=== PATIENT | female | born 1970 | race Caucasian/White ===

== ENCOUNTER 2022-04-14 13:04 | Emergency (ER) | payer MEDICARE, SELFPAY ==
--- NOTE | 2022-04-14 13:10 | ECG_ITS ---
Test Reason : cx pain Blood Pressure : / mmHG Vent. Rate : 104 BPM Atrial Rate : 104 BPM P-R Int : 130 ms QRS Dur : 068 ms QT Int : 328 ms P-R-T Axes : 075 021 020 degrees QTc Int : 431 ms Sinus tachycardia Otherwise normal ECG No previous ECGs available Referred By: Generic ED Physician Electronically Signed By:YUNIOR SHERMAN MD
[2022-04-14 13:17] VITALS: BP 133/91; PULSE 126; RESP 20; TEMP 36.8; O2SAT 98; BMI 28.3
--- NOTE | 2022-04-14 13:17 | ED_ITS ---
HPI - General Adult General Chief complaint: Chest Pain <Ousmane Herron - Last Filed: 04/14/22 13:19> Stated complaint: chest pain,high pulse rate/cardiac patient <Ousmane Herron - Last Filed: 04/14/22 13:19> Time Seen by Provider: 04/14/22 16:32 <Ousmane Herron - Last Filed: 04/14/22 13:19> Source: patient <SERVANDO Márquez - Last Filed: 04/14/22 17:21> Mode of arrival: ambulatory <SERVANDO Márquez - Last Filed: 04/14/22 17:21> Limitations: no limitations <SERVANDO Márquez - Last Filed: 04/14/22 17:21> History of Present Illness HPI narrative: 52 yo female with history of anxiety, CAD s/p stent x3, migraine headaches, intercostal neuralgia with chronic pain who presents to the ER for acute exacerbation of her intercostal neuralgia for the last 2 days. She reports she has severe 8/10 sternal and bilateral rib pains that are a constant stabbing pain. This is typical of her intercostal neuralgia flare ups. She reports seeing several specialists for this including neurology, psychiatry, and pain management who provided intercostal injections. She recently moved here from [place] and has no PCP or chronic pain management provider. She reports the pain started to flare up 2 days ago after shoveling snow. It radiates to her spine. It is <SERVANDO Márquez - Last Filed: 04/14/22 17:21> MD complaint: chest pain/back pain <SERVANDO Márquez - Last Filed: 04/14/22 17:21> Onset (ago): day(s) (2) <SERVANDO Márquez - Last Filed: 04/14/22 17:21> Location: chest and back <SERVANDO Márquez - Last Filed: 04/14/22 17:21> Radiation: back and neck <SERVANDO Márquez - Last Filed: 04/14/22 17:21> Severity: severe <SERVANDO Márquez - Last Filed: 04/14/22 17:21> Severity scale (1-10): 8 <SERVANDO Márquez Last Filed: 04/14/22 17:21> Quality: stabbing <SERVANDO Márquez Last Filed: 04/14/22 17:21> Pain Consistency: constant <SERVANDO Márquez Last Filed: 04/14/22 17:21> Relieving factors: none <SERVANDO Márquez Last Filed: 04/14/22 17:21> Exacerbating factors: movement <SERVANDO Márquez Last Filed: 04/14/22 17:21> Associated symptoms: denies other symptoms <SERVANDO Márquez Last Filed: 04/14/22 17:21> Treatments prior to arrival: none <SERVANDO Márquez Last Filed: 04/14/22 17:21> Related Data Home medications: Home Medications Medication Instructions Recorded Confirmed acetaminophen 500 mg tablet 500 mg PO Q6H PRN 04/14/22 (Tylenol Extra Strength) alprazolam 1 mg tablet 0.5 mg PO BID PRN 04/14/22 alprazolam 1 mg tablet 1 mg PO DAILY 04/14/22 atorvastatin 40 mg tablet 40 mg PO DAILY 04/14/22 clopidogrel 75 mg tablet 75 mg PO DAILY 04/14/22 esomeprazole magnesium 20 mg 20 mg PO BID 04/14/22 capsule,delayed release levetiracetam 500 mg tablet 500 mg PO BID 04/14/22 lidocaine HCl 4 % topical cream 1 appl topical QID PRN 04/14/22 (Aspercreme (lidocaine HCl)) paroxetine HCl 20 mg tablet 20 mg PO DAILY 04/14/22 prochlorperazine maleate 5 mg 5 mg PO ONCE PRN 04/14/22 tablet Previous Rx's Medication Instructions Recorded oxycodone 5 mg tablet 5 mg PO Q8H PRN pain #9 tabs 04/14/22 prednisone 20 mg tablet 40 mg PO DAILY #10 tabs 04/14/22 <Ousmane Herron - Last Filed: 04/14/22 13:19> Allergies/adverse reactions: Allergies Allergy/AdvReac Type Severity Reaction Status Date / Time No Known Allergies Allergy Verified 04/14/22 10:49 <Ousmane Herron - Last Filed: 04/14/22 13:19> Review of Systems Review of Systems: Yes all other systems are reviewed and are negative <SERVANDO Márquez - Last Filed: 04/14/22 17:21> [facility] Social History Social History: Social History Advance Directives: No <Ousmane Herron - Last Filed: 04/14/22 13:19> Physical Exam ED Vital Signs: Vital Signs - 24 hr 04/14/22 13:17 04/14/22 16:47 Temperature 98.2 F Pulse Rate 126 H 98 Respiratory Rate 20 20 Blood Pressure 133/91 H 132/89 Pulse Oximetry 98 99 Oxygen Delivery Method Room Air Room Air BMI result Body Mass Index 28.3 <Ousmane Herron - Last Filed: 04/14/22 13:19> Vital Signs - 24 hr 04/14/22 13:17 04/14/22 16:47 Temperature 98.2 F Pulse Rate 126 H 98 Respiratory Rate 20 20 Blood Pressure 133/91 H 132/89 Pulse Oximetry 98 99 Oxygen Delivery Method Room Air Room Air BMI result Body Mass Index 28.3 <SERVANDO Márquez - Last Filed: 04/14/22 17:21> Appearance: Alert. Oriented X3. No acute distress. Eyes: Pupils equal, round and reactive to light. ENT: Pharynx normal. Neck: Normal inspection. Neck supple. CVS: Normal heart rate and rhythm. HR 90s Pulses normal. Mild sternal tenderness and bilateral lower rib tenderness Respiratory: No respiratory distress. Breath sounds normal. Abdomen: Soft and nontender. +BS x4 Skin: Skin warm and dry. Normal skin color. Normal skin turgor. No rashes. Extremities: No lower extremity edema. Negative Homans sign Neuro: Oriented X 3. No motor deficit. No sensory deficit. Tremulous and anxious <SERVANDO Márquez - Last Filed: 04/14/22 17:21> Course Course Course Narrative: RME- 52 year old female presents for evaluation of chest pain that has been present for 2 days. Reports hx of cardiac stents x3. States history of intercostal neuralgia which she believes is the cause of her pain today. Was sent here from [place] urgent care. Vitals signs are stable in triage Plan for Labs, EKG <Ousmane Herron - Last Filed: 04/14/22 13:19> Reevaluation(s) Reevaluation #1: Labs unremarkable, troponin is negative. EKG without ischemic changes. Patient is comfort her pain is due to her ?intercostal neuralgia? She is tearful and anxious. We discussed the importance of outpatient management for chronic conditions and inability to chronically prescribe opiate medications in the emergency department. She expressed understanding. Will plan to refer the patient to chronic pain management, PCP here. Will provide a short course of oxycodone and prednisone. She will continue her previously prescribed Keppra. She follow-up with providers as an outpatient. <SERVANDO Márquez - Last Filed: 04/14/22 17:21> Medical Decision Making Medical Decision Making MDM Narrative: 52-year-old female with a history of CAD status post stent, migraines, anxiety, intercostal neuralgia who presents to the ER for evaluation of sternal pain and bilateral rib pain that started 2 days ago after shoveling. Seen at the urgent care clinic today and sent to the ER for cardiac workup. Her troponin is negative an EKG has no ischemic changes. She reports the pain is si milar to her intercostal neuralgia flare ups. She is confident that is what this pain is from. She reports relief only with oxycodone. She is tachycardic on arrival, most likely due to anxiety. She has no clinical signs DVT. Doubt PE at this time. Will empirically treat with short course of oxycodone and steroids for nerve pain. She will continue her Keppra and she is stable for discharge home with outpatient follow-up. Patient agrees with plan <SERVANDO Márquez - Last Filed: 04/14/22 17:21> Differential Diagnosis Differential Diagnoses: The differential diagnosis associated with the presentation includes <SERVANDO Márquez - Last Filed: 04/14/22 17:21> Intercostal neuralgia, anxiety, costochondritis, muscle spasm, less likely ACS or PE <SERVANDO Márquez - Last Filed: 04/14/22 17:21> Lab Data [facility] Lab Attestation statement: I reviewed the patient's lab results. <SERVANDO Márquez - Last Filed: 04/14/22 17:21> Result Diagrams: 04/14/22 14:10 04/14/22 14:10 <Ousmane Herron - Last Filed: 04/14/22 13:19> Labs: Lab Results 04/14/22 04/14/22 04/14/22 Range/Units 14:10 14:10 14:10 WBC 8.6 (4.8-10.8) X10*3/uL RBC 4.77 (4.20-5.50) X10*6/uL Hgb 14.7 (12.0-16.0) g/dl Hct 43.5 (37.0-47.0) % MCV 91.2 (80.0-98.0) fL MCH 30.8 (27.0-33.0) pg MCHC 33.8 (31.0-35.0) g/dl RDW 12.8 (11.0-16.0) % Plt Count 226 (160-400) X10*3/uL MPV 10.9 (9.4-12.3) fL Immature Gran % (Auto) 0.2 (0.0-0.4) % Neut % (Auto) 60.3 (45-73) % Lymph % (Auto) 31.9 (20-40) % [place] % (Auto) 6.3 (2-11) % Eos % (Auto) 0.6 (0-4) % Baso % (Auto) 0.7 (0-2) % Lymph # (Auto) 2.7 (1.2-4.9) X10*3/uL [place] # (Auto) 0.5 (0.1-1.2) X10*3/uL Eos # (Auto) 0.1 (0.0-0.4) X10*3/uL Baso # (Auto) 0.1 (0.0-0.2) X10*3/uL Abs Immat Gran (auto) 0.02 (0.00-0.03) X10*3/uL Absolute Neuts (auto) 5.2 (2.0-8.3) x10*3/uL Absolute Nucleated RBC 0.000 (0.0-0.012) X10*3/uL Nucleated RBC % (auto) 0.0 (0.0-0.2) /100WBC PT 12.2 (10.0-13.1) SEC INR 1.1 (0.9-1.1) APTT 29.3 (26.0-36.4) SEC Sodium 142 (135-145) mmol/L Potassium 3.7 (3.3-5.1) mmol/L Chloride 109 H (96-108) mmol/L Carbon Dioxide 19 L (22-29) mmol/L Anion Gap 18 (12-20) BUN 11 (9-16) mg/dL Creatinine 0.77 (0.5-1.4) mg/dL Estim Creat Clear Calc 89.7 Estimated GFR > 60 Random Glucose 94 (60-115) mg/dL Calcium 9.6 (8.4-10.2) mg/dL Magnesium 1.9 (1.6-2.6) mg/dL Total Bilirubin 1.2 H (0.0-1.0) mg/dL AST 21 (5-31) U/L ALT 17 (0-31) U/L Alkaline Phosphatase 79 (39-117) U/L Troponin I High Sens (<3.5-17.0) ng/L Total Protein 7.1 (6.5-8.0) g/dL Albumin 4.6 (3.5-5.0) g/dL 04/14/22 Range/Units 14:10 WBC (4.8-10.8) X10*3/uL RBC (4.20-5.50) X10*6/uL Hgb (12.0-16.0) g/dl Hct (37.0-47.0) % MCV (80.0-98.0) fL MCH (27.0-33.0) pg MCHC (31.0-35.0) g/dl RDW (11.0-16.0) % Plt Count (160-400) X10*3/uL MPV (9.4-12.3) fL Immature Gran % (Auto) (0.0-0.4) % Neut % (Auto) (45-73) % Lymph % (Auto) (20-40) % [place] % (Auto) (2-11) % Eos % (Auto) (0-4) % Baso % (Auto) (0-2) % Lymph # (Auto) (1.2-4.9) X10*3/uL [place] # (Auto) (0.1-1.2) X10*3/uL Eos # (Auto) (0.0-0.4) X10*3/uL Baso # (Auto) (0.0-0.2) X10*3/uL Abs Immat Gran (auto) (0.00-0.03) X10*3/uL Absolute Neuts (auto) (2.0-8.3) x10*3/uL Absolute Nucleated RBC (0.0-0.012) X10*3/uL Nucleated RBC % (auto) (0.0-0.2) /100WBC PT (10.0-13.1) SEC INR (0.9-1.1) APTT (26.0-36.4) SEC Sodium (135-145) mmol/L Potassium (3.3-5.1) mmol/L Chloride (96-108) mmol/L Carbon Dioxide (22-29) mmol/L Anion Gap (12-20) BUN (9-16) mg/dL Creatinine (0.5-1.4) mg/dL Estim Creat Clear Calc Estimated GFR Random Glucose (60-115) mg/dL Calcium (8.4-10.2) mg/dL Magnesium (1.6-2.6) mg/dL Total Bilirubin (0.0-1.0) mg/dL AST (5-31) U/L ALT (0-31) U/L Alkaline Phosphatase (39-117) U/L Troponin I High Sens < 3.5 (<3.5-17.0) ng/L Total Protein (6.5-8.0) g/dL Albumin (3.5-5.0) g/dL <Ousmane Herron - Last Filed: 04/14/22 13:19> Lab Results 04/14/22 04/14/22 04/14/22 Range/Units 14:10 14:10 14:10 WBC 8.6 (4.8-10.8) X10*3/uL RBC 4.77 (4.20-5.50) X10*6/uL Hgb 14.7 (12.0-16.0) g/dl Hct 43.5 (37.0-47.0) % MCV 91.2 (80.0-98.0) fL MCH 30.8 (27.0-33.0) pg MCHC 33.8 (31.0-35.0) g/dl RDW 12.8 (11.0-16.0) % Plt Count 226 (160-400) X10*3/uL MPV 10.9 (9.4-12.3) fL Immature Gran % (Auto) 0.2 (0.0-0.4) % Neut % (Auto) 60.3 (45-73) % Lymph % (Auto) 31.9 (20-40) % [place] % (Auto) 6.3 (2-11) % Eos % (Auto) 0.6 (0-4) % Baso % (Auto) 0.7 (0-2) % Lymph # (Auto) 2.7 (1.2-4.9) X10*3/uL [place] # (Auto) 0.5 (0.1-1.2) X10*3/uL Eos # (Auto) 0.1 (0.0-0.4) X10*3/uL Baso # (Auto) 0.1 (0.0-0.2) X10*3/uL Abs Immat Gran (auto) 0.02 (0.00-0.03) X10*3/uL Absolute Neuts (auto) 5.2 (2.0-8.3) x10*3/uL Absolute Nucleated RBC 0.000 (0.0-0.012) X10*3/uL Nucleated RBC % (auto) 0.0 (0.0-0.2) /100WBC PT 12.2 (10.0-13.1) SEC INR 1.1 (0.9-1.1) APTT 29.3 (26.0-36.4) SEC Sodium 142 (135-145) mmol/L Potassium 3.7 (3.3-5.1) mmol/L Chloride 109 H (96-108) mmol/L Carbon Dioxide 19 L (22-29) mmol/L Anion Gap 18 (12-20) BUN 11 (9-16) mg/dL Creatinine 0.77 (0.5-1.4) mg/dL Estim Creat Clear Calc 89.7 Estimated GFR > 60 Random Glucose 94 (60-115) mg/dL Calcium 9.6 (8.4-10.2) mg/dL Magnesium 1.9 (1.6-2.6) mg/dL Total Bilirubin 1.2 H (0.0-1.0) mg/dL AST 21 (5-31) U/L ALT 17 (0-31) U/L Alkaline Phosphatase 79 (39-117) U/L Troponin I High Sens (<3.5-17.0) ng/L Total Protein 7.1 (6.5-8.0) g/dL Albumin 4.6 (3.5-5.0) g/dL 04/14/22 Range/Units 14:10 WBC (4.8-10.8) X10*3/uL RBC (4.20-5.50) X10*6/uL Hgb (12.0-16.0) g/dl Hct (37.0-47.0) % MCV (80.0-98.0) fL MCH (27.0-33.0) pg MCHC (31.0-35.0) g/dl RDW (11.0-16.0) % Plt Count (160-400) X10*3/uL MPV (9.4-12.3) fL Immature Gran % (Auto) (0.0-0.4) % Neut % (Auto) (45-73) % Lymph % (Auto) (20-40) % [place] % (Auto) (2-11) % Eos % (Auto) (0-4) % Baso % (Auto) (0-2) % Lymph # (Auto) (1.2-4.9) X10*3/uL [place] # (Auto) (0.1-1.2) X10*3/uL Eos # (Auto) (0.0-0.4) X10*3/uL Baso # (Auto) (0.0-0.2) X10*3/uL Abs Immat Gran (auto) (0.00-0.03) X10*3/uL Absolute Neuts (auto) (2.0-8.3) x10*3/uL Absolute Nucleated RBC (0.0-0.012) X10*3/uL Nucleated RBC % (auto) (0.0-0.2) /100WBC PT (10.0-13.1) SEC INR (0.9-1.1) APTT (26.0-36.4) SEC Sodium (135-145) mmol/L Potassium (3.3-5.1) mmol/L Chloride (96-108) mmol/L Carbon Dioxide (22-29) mmol/L Anion Gap (12-20) BUN (9-16) mg/dL Creatinine (0.5-1.4) mg/dL Estim Creat Clear Calc Estimated GFR Random Glucose (60-115) mg/dL Calcium (8.4-10.2) mg/dL Magnesium (1.6-2.6) mg/dL Total Bilirubin (0.0-1.0) mg/dL AST (5-31) U/L ALT (0-31) U/L Alkaline Phosphatase (39-117) U/L Troponin I High Sens < 3.5 (<3.5-17.0) ng/L Total Protein (6.5-8.0) g/dL Albumin (3.5-5.0) g/dL <SERVANDO Márquez Last Filed: 04/14/22 17:21> Independent Interpretation I performed an independent interpretation of an: EKG <SERVANDO Márquez Last Filed: 04/14/22 17:21> Interpretation: EKG today with sinus tachycardia, ventricular rate 104 beats per minute, normal CO interval, normal QTC, no ST segment elevations or depressions. <SERVANDO Márquez Last Filed: 04/14/22 17:21> External Record Review External record reviewed: Outpatient record <SERVANDO Márquez Last Filed: 04/14/22 17:21> Tests considered The following testing was considered but not selected: D-dimer and CTA considered however not indicated at this time as other etiology of her chest pain is more likely. <SERVANDO Márquez Last Filed: 04/14/22 17:21> Prescription Management I considered prescription management with: Pain Medication <SERVANDO Márquez Last Filed: 04/14/22 17:21> Chronic Conditions Patient?s care impacted by: Other (Anxiety, coronary artery disease) <SERVANDO Márquez Abimael ed: 04/14/22 17:21> Scores Heart Score History: -0- slightly suspicious <SERVANDO Márquez - Last Filed: 04/14/22 17:21> ECG: -0- normal <SERVANDO Márquez - Last Filed: 04/14/22 17:21> Age: -1- >45 - <65 <SERVANDO Márquez - Last Filed: 04/14/22 17:21> Risk factory: -1- 1 or 2 risk factors <SERVANDO Márquez - Last Filed: 04/14/22 17:21> Troponin: -0- < or = normal limit <SERVANDO Márquez - Last Filed: 04/14/22 17:21> Score: 2 <SERVANDO Márquez - Last Filed: 04/14/22 17:21> Risk: 1.7% <SERVANDO Márquez - Last Filed: 04/14/22 17:21> Wells PE Heart rate > 100 p/min: 1.5 <SERVANDO Márquez - Last Filed: 04/14/22 17:21> Score: 1.5 <SERVANDO Márquez - Last Filed: 04/14/22 17:21> 2-tier Risk: unlikely risk (5%) <SERVANDO Márquez - Last Filed: 04/14/22 17:21> 3-tier Risk: low risk (3.4%) <SERVANDO Márquez - Last Filed: 04/14/22 17:21> Critical Care Time Critical Care Time Critical Care Time: No <SERVANDO Márquez - Last Filed: 04/14/22 17:21> Discharge Plan Discharge Clinical Impression: Atypical chest pain <Ousmane Herron - Last Filed: 04/14/22 13:19> Patient Disposition: Home, Self-Care <Ousmane Herron - Last Filed: 04/14/22 13:19> Instructions: Noncardiac Chest Pain (ED) <Ousmane Herron - Last Filed: 04/14/22 13:19> Additional Instructions: Your lab workup today was unremarkable. Your EKG did not show any evidence of strain on your heart. Recommend following up with Pain Management, as well as a primary care doctor as soon as possible. Take the prescribed medications as directed. If you develop new or worsening symptoms call 911 or come back to the ER for further evaluation. <Ousmane Herron - Last Filed: 04/14/22 13:19> Prescriptions: New oxycodone 5 mg tablet 5 mg PO Q8H PRN (Reason: pain) Qty: 9 0RF Rx Instructions: Partial Fill upon patient request. prednisone 20 mg tablet 40 mg PO DAILY Qty: 10 0RF No Action alprazolam 1 mg tablet 0.5 mg PO BID PRN atorvastatin 40 mg tablet 40 mg PO DAILY prochlorperazine maleate 5 mg tablet 5 mg PO ONCE PRN paroxetine HCl 20 mg tablet 20 mg PO DAILY clopidogrel 75 mg tablet 75 mg PO DAILY alprazolam 1 mg tablet 1 mg PO DAILY levetiracetam 500 mg tablet 500 mg PO BID esomeprazole magnesium 20 mg capsule,delayed release(DR/EC) 20 mg PO BID lidocaine HCl [Aspercreme (lidocaine HCl)] 4 % cream 1 appl topical QID PRN acetaminophen [Tylenol Extra Strength] 500 mg tablet 500 mg PO Q6H PRN <Ousmane Herron - Last Filed: 04/14/22 13:19>
[2022-04-14 14:16] LABS: MANUAL DIFF FLAG NO
[2022-04-14 14:20] LABS: Basophils Absolute Auto 0.1 X10*3/uL (0.0-0.2); Basophils Percent Auto 0.7 % (0-2); Eosinophils Absolute Auto 0.1 X10*3/uL (0.0-0.4); Eosinophils Percent Auto 0.6 % (0-4); Hematocrit 43.5 % (37.0-47.0); Hemoglobin 14.7 g/dl (12.0-16.0); Imm Gran Abs Auto 0.02 X10*3/uL (0.00-0.03); Imm Gran Pct Auto 0.2 % (0.0-0.4); Lymphocytes Absolute Auto 2.7 X10*3/uL (1.2-4.9); Lymphocytes Percent Auto 31.9 % (20-40); Mean Corpuscular HGB Conc 33.8 g/dl (31.0-35.0); Mean Corpuscular Hemoglobin 30.8 pg (27.0-33.0); Mean Corpuscular Volume 91.2 fL (80.0-98.0); Mean Platelet Volume 10.9 fL (9.4-12.3); Monocytes Absolute Auto 0.5 X10*3/uL (0.1-1.2); Monocytes Percent Auto 6.3 % (2-11); Neutrophils Absolute Auto 5.2 x10*3/uL (2.0-8.3); Neutrophils Percent Auto 60.3 % (45-73); Platelet Count 226 X10*3/uL (160-400); Red Blood Count 4.77 X10*6/uL (4.20-5.50); Red Cell Distribution Width 12.8 % (11.0-16.0); White Blood Count 8.6 X10*3/uL (4.8-10.8)
[2022-04-14 14:26] LABS: INTERNATIONAL NORM RATIO 1.1 (0.9-1.1); Prothrombin Time 12.2 SEC (10.0-13.1)
[2022-04-14 14:28] LABS: Partial Thromboplastin Time 29.3 SEC (26.0-36.4)
[2022-04-14 14:31] LABS: Alanine Aminotransferase 17 U/L (0-31); Albumin Level 4.6 g/dL (3.5-5.0); Alkaline Phosphatase 79 U/L (39-117); Anion Gap 18 (12-20); Aspartate Amino Transferase 21 U/L (5-31); Bilirubin Total 1.2 mg/dL (0.0-1.0); Blood Urea Nitrogen 11 mg/dL (9-16); Calcium 9.6 mg/dL (8.4-10.2); Carbon Dioxide 19 mmol/L (22-29); Chloride 109 mmol/L (96-108); Creatinine Clr Calc Pharmacy 89.7; Estimated Glomerular Filt Rate > 60; Glucose Random 94 mg/dL (60-115); Magnesium 1.9 mg/dL (1.6-2.6); Potassium 3.7 mmol/L (3.3-5.1); Sodium 142 mmol/L (135-145); Total Protein 7.1 g/dL (6.5-8.0)
[2022-04-14 14:38] LABS: Troponin-I High Sensitivity < 3.5 ng/L (<3.5-17.0)
[2022-04-14 16:47] VITALS: BP 132/89; PULSE 98; RESP 20; O2SAT 99
[2022-04-14] MEDS: oxyCODONE HCl Immed Release 5 MG TABLET PO (17:25)
[2022-04-14] MEDS: Ketorolac Tromethamine 30 MG/ML VIAL IM (17:25)
== END 2022-04-14 17:33 | disposition home or self-care (01) ==
PROVIDERS: Physician Assistant; Emergency Provider Emergency Medicine
DX: R07.89 Other chest pain (principal); R00.0 Tachycardia, unspecified; I25.10 Atherosclerotic heart disease of native coronary artery without angina pectoris; Z79.899 Other long term (current) drug therapy
CPT/HCPCS: 36415; 80053; 83735; 84484; 85025; 85610; 85730; 93005; 96372; 99284; J1885

== ENCOUNTER 2022-04-20 13:02 | Emergency (ER) | payer MEDICARE, SELFPAY ==
[2022-04-20 13:06] VITALS: BP 148/87; PULSE 104; RESP 18; TEMP 35.9; O2SAT 98; BMI 28.3
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
--- NOTE | 2022-04-20 13:12 | ECG_ITS ---
Test Reason : CHEST PAIN Blood Pressure : / mmHG Vent. Rate : 096 BPM Atrial Rate : 096 BPM P-R Int : 116 ms QRS Dur : 066 ms QT Int : 348 ms P-R-T Axes : 049 013 042 degrees QTc Int : 439 ms Normal sinus rhythm Nonspecific ST and T wave abnormality Borderline ECG When compared with ECG of 14-APR-2022 13:57, No significant changes seen Referred By: Melissa Ambrosio Electronically Signed By:FLASH CHANDLER
[2022-04-20 14:02] LABS: MANUAL DIFF FLAG NO
[2022-04-20 14:09] LABS: Basophils Absolute Auto 0.1 X10*3/uL (0.0-0.2); Basophils Percent Auto 0.8 % (0-2); Eosinophils Absolute Auto 0.1 X10*3/uL (0.0-0.4); Eosinophils Percent Auto 0.9 % (0-4); Hematocrit 41.3 % (37.0-47.0); Hemoglobin 14.1 g/dl (12.0-16.0); Imm Gran Abs Auto 0.01 X10*3/uL (0.00-0.03); Imm Gran Pct Auto 0.2 % (0.0-0.4); Lymphocytes Absolute Auto 2.5 X10*3/uL (1.2-4.9); Lymphocytes Percent Auto 38.3 % (20-40); Mean Corpuscular HGB Conc 34.1 g/dl (31.0-35.0); Mean Corpuscular Hemoglobin 30.9 pg (27.0-33.0); Mean Corpuscular Volume 90.4 fL (80.0-98.0); Mean Platelet Volume 10.5 fL (9.4-12.3); Monocytes Absolute Auto 0.5 X10*3/uL (0.1-1.2); Neutrophils Absolute Auto 3.5 x10*3/uL (2.0-8.3); Neutrophils Percent Auto 52.8 % (45-73); Platelet Count 246 X10*3/uL (160-400); Red Blood Count 4.57 X10*6/uL (4.20-5.50); Red Cell Distribution Width 12.7 % (11.0-16.0); White Blood Count 6.6 X10*3/uL (4.8-10.8)
[2022-04-20 14:19] LABS: Anion Gap 15 (12-20); Blood Urea Nitrogen 10 mg/dL (9-16); Calcium 9.6 mg/dL (8.4-10.2); Carbon Dioxide 22 mmol/L (22-29); Chloride 110 mmol/L (96-108); Creatinine Clr Calc Pharmacy 85.3; Estimated Glomerular Filt Rate > 60; Glucose Random 93 mg/dL (60-115); Sodium 143 mmol/L (135-145)
[2022-04-20 14:28] LABS: Troponin-I High Sensitivity < 3.5 ng/L (<3.5-17.0)
== END 2022-04-20 17:00 | disposition home or self-care (01) ==
PROVIDERS: Physician Assistant; Emergency Provider Student in an Organized Health Care Education/Training Program
DX: R07.89 Other chest pain (principal)
CPT/HCPCS: 36415; 80048; 84484; 85025; 93005; 99283

== ENCOUNTER 2022-04-29 12:34 | Emergency (ER) | payer MEDICARE, SELFPAY ==
--- NOTE | ~2022-04-29 | XR_ITS ---
EXAMINATION: XR CHEST CLINICAL INFORMATION: Chest pain COMPARISON: None available. TECHNIQUE: 2 views of the chest were obtained. FINDINGS: No significant abnormality is noted involving the heart, lungs, mediastinum, bony thorax or soft tissues. Coronary artery stent present. XR/XR chest 2V IMPRESSION: No acute disease.
--- NOTE | 2022-04-29 12:39 | ECG_ITS ---
Test Reason : chest pain Blood Pressure : / mmHG Vent. Rate : 104 BPM Atrial Rate : 104 BPM P-R Int : 128 ms QRS Dur : 068 ms QT Int : 318 ms P-R-T Axes : 069 021 066 degrees QTc Int : 418 ms Sinus tachycardia Otherwise normal ECG When compared with ECG of 20-APR-2022 13:48, No significant change was found Referred By: Monica Manrique Electronically Signed By:Sunil Cobb
[2022-04-29 13:28] VITALS: BP 135/84; PULSE 111; RESP 16; TEMP 36.3; O2SAT 97; BMI 29.9
--- NOTE | 2022-04-29 13:28 | ED_ITS ---
HPI - General Adult General Chief complaint: General Medical <SERVANDO Barragan - Last Filed: 04/29/22 13:29> Stated complaint: Chest pain around rib cage, body pain <SERVANDO Barragan - Last Filed: 04/29/22 13:29> Time Seen by Provider: 04/29/22 16:24 <SERVANDO Barragan - Last Filed: 04/29/22 13:29> Source: patient and RN notes reviewed <Ousmane Herron - Last Filed: 04/29/22 19 :02> Mode of arrival: ambulatory <Ousmane Herron - Last Filed: 04/29/22 19:02> Limitations: no limitations <Ousmane Herron - Last Filed: 04/29/22 19:02> History of Present Illness HPI narrative: 52-year-old female with past medical history significant for coronary artery disease, ?intercostal neuralgia, chronic pain, migraine headaches, anxiety presents for evaluation of chest pain. Patient believes that she has a ?flare-up of my intercostal neuralgia for the last 3 days after she was shoveling She reports that she has a burning pain in the middle of her sternum that radiates around both sides of her ribs and into her back. She states the pain today radiates down her leg and is ?burning. ? She reports the pain down her legs is new for her. Patient states her pain is 10/10 and ?keeps me in bed. The patient reports that the only thing that helps her pain is narcotics specifically oxycodone. She reports that Tylenol does not work, she has tried Toradol in the past does not work, muscle relaxers and lidocaine also do not help her. She also reports that she has been taking Tylenol for the last few days without any improvement. Of note, this is the patient's 3rd visit in the last 2 weeks for the same complaint. She had a lengthy discussion with previous provider that she will not be prescribed opioids for chronic pain management from the ER The patient was offered alternatives including Suboxone at her last visit. <Ousmane Herron - Last Filed: 04/29/22 19:02> Related Data Home medications: Home Medications Medication Instructions Recorded Confirmed acetaminophen 500 mg tablet 500 mg PO Q6H PRN 04/14/22 (Tylenol Extra Strength) alprazolam 1 mg tablet 0.5 mg PO BID PRN 04/14/22 alprazolam 1 mg tablet 1 mg PO DAILY 04/14/22 atorvastatin 40 mg tablet 40 mg PO DAILY 04/14/22 clopidogrel 75 mg tablet 75 mg PO DAILY 04/14/22 esomeprazole magnesium 20 mg 20 mg PO BID 04/14/22 capsule,delayed release levetiracetam 500 mg tablet 500 mg PO BID 04/14/22 lidocaine HCl 4 % topical cream 1 appl topical QID PRN 04/14/22 (Aspercreme (lidocaine HCl)) paroxetine HCl 20 mg tablet 20 mg PO DAILY 04/14/22 prochlorperazine maleate 5 mg 5 mg PO ONCE PRN 04/14/22 tablet Previous Rx's Medication Instructions Recorded oxycodone 5 mg tablet 5 mg PO Q8H PRN pain #9 tabs 04/14/22 prednisone 20 mg tablet 40 mg PO DAILY #10 tabs 04/14/22 <SERVANDO Barragan - Last Filed: 04/29/22 13:29> Allergies/adverse reactions: Allergies Allergy/AdvReac Type Severity Reaction Status Date / Time No Known Allergies Allergy Verified 04/19/22 13:52 <SERVANDO Barragan - Last Filed: 04/29/22 13:29> Review of Systems Constitutional: Constitutional: Reports as per HPI, Denies chills, Denies fatigue, Denies fever(s) and Denies headache(s) <Ousmane Herron - Last Filed: 04/29/22 19:02> ENT: Denies headache(s) <Ousmane Herron - Last Filed: 04/29/22 19:02> Cardiovascular: Cardiovascular: Reports chest pain and Denies dyspnea <Ousmane Herron - Last Filed: 04/29/22 19:02> Respiratory: Respiratory: Denies cough and Denies dyspnea <Ousmane Herron - Last Filed: 04/29/22 19:02> Gastrointestinal: Gastrointestinal: Denies abdominal pain, Denies constipation and Denies vomiting <Ousmane Herron - Last Filed: 04/29/22 19:02> Genitourinary: Genitourinary: Denies dysuria <Ousmane Herron - Last Filed: 04/29/22 19:02> Musculoskeletal: Musculoskeletal: Reports back pain <Ousmane Herron - Last Filed: 04/29/22 19:02> Neurologic: Denies headache(s) and Denies focal weakness <Ousmane Herron - Last Filed: 04/29/22 19:02> Endocrine: Endocrine: Denies fatigue <Ousmane Herron - Last Filed: 04/29/22 19:02> PMFSH Social History Social History: Social History Alcohol intake: never Smoked in Last 30 Days: No Use of substances other than those prescribed or required for medical reasons: No Advance Directives: No Advance Directives Information Provided: Yes Patient : No <SERVANDO Barragan - Last Filed: 04/29/22 13:29> Physical Exam ED Vital Signs: Vital Signs - 24 hr 04/29/22 13:28 04/29/22 16:22 04/29/22 17:57 Temperature 97.4 F Pulse Rate 111 H 80 88 Respiratory Rate 16 19 16 Blood Pressure 135/84 112/65 105/74 Pulse Oximetry 97 100 98 Oxygen Delivery Method Room Air Room Air Room Air BMI result Body Mass Index 29.9 <SERVANDO Barragan - Last Filed: 04/29/22 13:29> Vital Signs - 24 hr 04/29/22 13:28 04/29/22 16:22 04/29/22 17:57 Temperature 97.4 F Pulse Rate 111 H 80 88 Respiratory Rate 16 19 16 Blood Pressure 135/84 112/65 105/74 Pulse Oximetry 97 100 98 Oxygen Delivery Method Room Air Room Air Room Air BMI result Body Mass Index 29.9 <Ousmane Herron - Last Filed: 04/29/22 19:02> Const General: healthy appearing, comfortable, no acute distress, alert and awake <Ousmane Herron - Last Filed: 04/29/22 19:02> Nutritional Appearance: well nourished <Ousmane Herron - Last Filed: 04/29/22 19:02> Orientation/consciousness: patient oriented x3 <Ousmane Herron - Last Filed: 04/29/22 19:02> HENMT Head: Yes normocephalic and Yes atraumatic <Ousmane Herron - Last Filed: 04/29/22 19:02> Throat: Yes posterior oropharynx normal < Last Filed: 04/29/22 19:02> Eyes Eyelids: Yes eyelids normal < - Last Filed: 04/29/22 19:02> Conjunctivae: conjunctivae normal < Last Filed: 04/29/22 19:02> Sclerae: sclerae normal < - Last Filed: 04/29/22 19:02> Corneas: corneas normal < Last Filed: 04/29/22 19:02> Pupils: Equal, round and reactive pupils present < - Last Filed: 04/29/22 19:02> EOM: EOMs intact bilaterally < Last Filed: 04/29/22 19:02> Neck Neck: Yes full ROM < Last Filed: 04/29/22 19:02> Chest Chest palpation & inspection: normal inspection of the chest < Last Filed: 04/29/22 19:02> Resp Effort & Inspection: normal respiratory effort, able to speak in complete sentences, no audible wheezes and not labored < Last Filed: 04/29/22 19:02> Auscultation: clear to auscultation bilaterally < Last Filed: 04/29/22 19:02> Cardio Rate: regular rate < Last Filed: 04/29/22 19:02> Rhythm: regular rhythm < Last Filed: 04/29/22 19:02> GI Inspection: No distended < Last Filed: 04/29/22 19:02> Palpation (GI): Soft to palpation, not firm, nontender, no guarding and not rigid < Last Filed: 04/29/22 19:02> Auscultation: normoactive bowel sounds < Last Filed: 04/29/22 19:02> Back/Spine/Pelvis Other: No spinal tenderness to the thoracic and lumbar spine. Negative straight leg raise bilaterally. <Ousmane Herron - Last Filed: 04/29/22 19:02> Skin General skin exam: no rashes or lesions noted and elasticity normal <Ousmane Herron - Last Filed: 04/29/22 19:02> Neuro General: patient oriented x3 <Ousmane Herron - Last Filed: 04/29/22 19:02> Cranial nerves: Yes CN's II-XII intact bilaterally, Yes Equal, round and reactive pupils present and Yes Bilaterally intact EOM present <Ousmane Herron - Last Filed: 04/29/22 19:02> Cognition (Neuro): normal cognition <Ousmane Herron - Last Filed: 04/29/22 19:02> Extrem Other: Moving all extremities well without any obvious deformities <Ousmane abramsy - Last Filed: 04/29/22 19:02> Course Course Course Narrative: RME performed by Monica Manrique PA-C. Patient is a 52 year old female presenting to the emergency department with central, burning, chest pain. Patient states that the pain radiates into her back and down into her legs. Patient states that she was shoveling and that may have irritated her intercostal neuralgia. Labs, EKG, and CXR ordered. Patient placed back in the waiting room pending room availability and results. <SERVANDO Barragan - Last Filed: 04/29/22 13:29> Medical Decision Making Medical Decision Making MDM Narrative: Given the patient's history of coronary artery disease, I feel that she warrants workup for her chest pain to evaluate for potential ACS so I feel this is less likely. The patient appears quite comfortable. Her EKG and chest x-ray are unremarkable with the exception of a mild tachycardia. There is no ischemic changes on the EKG. Lab work is pending at this time. I again discussed the patient I am happy to provide her alternatives for her pain but would not be prescribing her narcotic pain medication to treat her chronic pain in the absence of acute pathology. Patient was offered Toradol, Tylenol a muscle relaxers and she declined all them. <Uosmane LouisaBlaise - Last Filed: 04/29/22 19:02> Differential Diagnosis Chronic pain Drug-seeking behavior Opiate dependence Intercostal neuralgia ACS <Ousmane Herron - Last Filed: 04/29/22 19:02> Lab Data Result Diagrams: 04/29/22 17:47 04/29/22 17:47 <SERVANDO Barragan - Last Filed: 04/29/22 13:29> Labs: Lab Results 04/29/22 04/29/22 04/29/22 Range/Units 13:55 17:47 17:47 WBC 6.0 (4.8-10.8) X10*3/uL RBC 4.46 (4.20-5.50) X10*6/uL Hgb 14.1 (12.0-16.0) g/dl Hct 40.4 (37.0-47.0) % MCV 90.6 (80.0-98.0) fL MCH 31.6 (27.0-33.0) pg MCHC 34.9 (31.0-35.0) g/dl RDW 12.8 (11.0-16.0) % Plt Count 254 (160-400) X10*3/uL MPV 10.2 (9.4-12.3) fL Immature Gran % (Auto) 0.2 (0.0-0.4) % Neut % (Auto) 50.3 (45-73) % Lymph % (Auto) 41.0 H (20-40) % Ransom % (Auto) 7.3 (2-11) % Eos % (Auto) 0.5 (0-4) % Baso % (Auto) 0.7 (0-2) % Lymph # (Auto) 2.5 (1.2-4.9) X10*3/uL Ransom # (Auto) 0.4 (0.1-1.2) X10*3/uL Eos # (Auto) 0.0 (0.0-0.4) X10*3/uL Baso # (Auto) 0.0 (0.0-0.2) X10*3/uL Abs Immat Gran (auto) 0.01 (0.00-0.03) X10*3/uL Absolute Neuts (auto) 3.0 (2.0-8.3) x10*3/uL Absolute Nucleated RBC 0.000 (0.0-0.012) X10*3/uL Nucleated RBC % (auto) 0.0 (0.0-0.2) /100WBC Sodium 143 (135-145) mmol/L Potassium 3.3 (3.3-5.1) mmol/L Chloride 111 H (96-108) mmol/L Carbon Dioxide 19 L (22-29) mmol/L Anion Gap 16 (12-20) BUN 10 (9-16) mg/dL Creatinine 0.78 (0.5-1.4) mg/dL Estim Creat Clear Calc 91.0 Estimated GFR > 60 Random Glucose 93 (60-115) mg/dL Calcium 9.5 (8.4-10.2) mg/dL Magnesium 1.9 (1.6-2.6) mg/dL Total Bilirubin 0.8 (0.0-1.0) mg/dL AST 20 (5-31) U/L ALT 16 (0-31) U/L Alkaline Phosphatase 71 (39-117) U/L Troponin I High Sens (<3.5-17.0) ng/L B-Natriuretic Peptide (<100) pg/mL Total Protein 6.7 (6.5-8.0) g/dL Albumin 4.4 (3.5-5.0) g/dL COVID-19 (BRIANA) Negative (Negative) COVID-19 Clin Com See Note 04/29/22 04/29/22 Range/Units 17:47 17:47 WBC (4.8-10.8) X10*3/uL RBC (4.20-5.50) X10*6/uL Hgb (12.0-16.0) g/dl Hct (37.0-47.0) % MCV (80.0-98.0) fL MCH (27.0-33.0) pg MCHC (31.0-35.0) g/dl RDW (11.0-16.0) % Plt Count (160-400) X10*3/uL MPV (9.4-12.3) fL Immature Gran % (Auto) (0.0-0.4) % Neut % (Auto) (45-73) % Lymph % (Auto) (20-40) % Ransom % (Auto) (2-11) % Eos % (Auto) (0-4) % Baso % (Auto) (0-2) % Lymph # (Auto) (1.2-4.9) X10*3/uL Ransom # (Auto) (0.1-1.2) X10*3/uL Eos # (Auto) (0.0-0.4) X10*3/uL Baso # (Auto) (0.0-0.2) X10*3/uL Abs Immat Gran (auto) (0.00-0.03) X10*3/uL Absolute Neuts (auto) (2.0-8.3) x10*3/uL Absolute Nucleated RBC (0.0-0.012) X10*3/uL Nucleated RBC % (auto) (0.0-0.2) /100WBC Sodium (135-145) mmol/L Potassium (3.3-5.1) mmol/L Chloride (96-108) mmol/L Carbon Dioxide (22-29) mmol/L Anion Gap (12-20) BUN (9-16) mg/dL Creatinine (0.5-1.4) mg/dL Estim Creat Clear Calc Estimated GFR Random Glucose (60-115) mg/dL Calcium (8.4-10.2) mg/dL Magnesium (1.6-2.6) mg/dL Total Bilirubin (0.0-1.0) mg/dL AST (5-31) U/L ALT (0-31) U/L Alkaline Phosphatase (39-117) U/L Troponin I High Sens 6.2 D (<3.5-17.0) ng/L B-Natriuretic Peptide 13 (<100) pg/mL Total Protein (6.5-8.0) g/dL Albumin (3.5-5.0) g/dL COVID-19 (BRIANA) (Negative) COVID-19 Clin Com <SERVANDO Barragan - Last Filed: 04/29/22 13:29> Lab Results 04/29/22 04/29/22 04/29/22 Range/Units 13:55 17:47 17:47 WBC 6.0 (4.8-10.8) X10*3/uL RBC 4.46 (4.20-5.50) X10*6/uL Hgb 14.1 (12.0-16.0) g/dl Hct 40.4 (37.0-47.0) % MCV 90.6 (80.0-98.0) fL MCH 31.6 (27.0-33.0) pg MCHC 34.9 (31.0-35.0) g/dl RDW 12.8 (11.0-16.0) % Plt Count 254 (160-400) X10*3/uL MPV 10.2 (9.4-12.3) fL Immature Gran % (Auto) 0.2 (0.0-0.4) % Neut % (Auto) 50.3 (45-73) % Lymph % (Auto) 41.0 H (20-40) % Ransom % (Auto) 7.3 (2-11) % Eos % (Auto) 0.5 (0-4) % Baso % (Auto) 0.7 (0-2) % Lymph # (Auto) 2.5 (1.2-4.9) X10*3/uL Ransom # (Auto) 0.4 (0.1-1.2) X10*3/uL Eos # (Auto) 0.0 (0.0-0.4) X10*3/uL Baso # (Auto) 0.0 (0.0-0.2) X10*3/uL Abs Immat Gran (auto) 0.01 (0.00-0.03) X10*3/uL Absolute Neuts (auto) 3.0 (2.0-8.3) x10*3/uL Absolute Nucleated RBC 0.000 (0.0-0.012) X10*3/uL Nucleated RBC % (auto) 0.0 (0.0-0.2) /100WBC Sodium 143 (135-145) mmol/L Potassium 3.3 (3.3-5.1) mmol/L Chloride 111 H (96-108) mmol/L Carbon Dioxide 19 L (22-29) mmol/L Anion Gap 16 (12-20) BUN 10 (9-16) mg/dL Creatinine 0.78 (0.5-1.4) mg/dL Estim Creat Clear Calc 91.0 Estimated GFR > 60 Random Glucose 93 (60-115) mg/dL Calcium 9.5 (8.4-10.2) mg/dL Magnesium 1.9 (1.6-2.6) mg/dL Total Bilirubin 0.8 (0.0-1.0) mg/dL AST 20 (5-31) U/L ALT 16 (0-31) U/L Alkaline Phosphatase 71 (39-117) U/L Troponin I High Sens (<3.5-17.0) ng/L B-Natriuretic Peptide (<100) pg/mL Total Protein 6.7 (6.5-8.0) g/dL Albumin 4.4 (3.5-5.0) g/dL COVID-19 (BRIANA) Negative (Negative) COVID-19 Clin Com See Note 04/29/22 04/29/22 Range/Units 17:47 17:47 WBC (4.8-10.8) X10*3/uL RBC (4.20-5.50) X10*6/uL Hgb (12.0-16.0) g/dl Hct (37.0-47.0) % MCV (80.0-98.0) fL MCH (27.0-33.0) pg MCHC (31.0-35.0) g/dl RDW (11.0-16.0) % Plt Count (160-400) X10*3/uL MPV (9.4-12.3) fL Immature Gran % (Auto) (0.0-0.4) % Neut % (Auto) (45-73) % Lymph % (Auto) (20-40) % Ransom % (Auto) (2-11) % Eos % (Auto) (0-4) % Baso % (Auto) (0-2) % Lymph # (Auto) (1.2-4.9) X10*3/uL Ransom # (Auto) (0.1-1.2) X10*3/uL Eos # (Auto) (0.0-0.4) X10*3/uL Baso # (Auto) (0.0-0.2) X10*3/uL Abs Immat Gran (auto) (0.00-0.03) X10*3/uL Absolute Neuts (auto) (2.0-8.3) x10*3/uL Absolute Nucleated RBC (0.0-0.012) X10*3/uL Nucleated RBC % (auto) (0.0-0.2) /100WBC Sodium (135-145) mmol/L Potassium (3.3-5.1) mmol/L Chloride (96-108) mmol/L Carbon Dioxide (22-29) mmol/L Anion Gap (12-20) BUN (9-16) mg/dL Creatinine (0.5-1.4) mg/dL Estim Creat Clear Calc Estimated GFR Random Glucose (60-115) mg/dL Calcium (8.4-10.2) mg/dL Magnesium (1.6-2.6) mg/dL Total Bilirubin (0.0-1.0) mg/dL AST (5-31) U/L ALT (0-31) U/L Alkaline Phosphatase (39-117) U/L Troponin I High Sens 6.2 D (<3.5-17.0) ng/L B-Natriuretic Peptide 13 (<100) pg/mL Total Protein (6.5-8.0) g/dL Albumin (3.5-5.0) g/dL COVID-19 (BRIANA) (Negative) COVID-19 Clin Com <Ousmane Herron - Last Filed: 04/29/22 19:02> Independent Interpretation I performed an independent interpretation of an: EKG (Years sinus tachycardia rate of 104. No ST segment elevations or depressions. Nonischemic EKG) <Ousamne Herron - Last Filed: 04/29/22 19:02> Radiology Impression Discussion of test interpretation with radiology: I have reviewed the radiologist's reading. (No acute pathology) <Ousmane Herron - Last Filed: 04/29/22 19:02> Discharge Plan Discharge Clinical Impression: Chronic chest pain <SERVANDO Barragan - Last Filed: 04/29/22 13:29> Patient Disposition: Home, Self-Care <SERVANDO Barragan - Last Filed: 04/29/22 13:29> Instructions: Chest Pain (ED) <SERVANDO Barragan - Last Filed: 04/29/22 13:29> Additional Instructions: Your workup in the emergency per was reassuring. But very depressed as was it does not appear that your changes related to coronary arteries. Continue using Tylenol, [id number] topical analgesia is for your discomfort <SERVANDO Barragan - Last Filed: 04/29/22 13:29> Prescriptions: No Action oxycodone 5 mg tablet 5 mg PO Q8H PRN (Reason: pain) Qty: 9 0RF Rx Instructions: Partial Fill upon patient request. prednisone 20 mg tablet 40 mg PO DAILY Qty: 10 0RF alprazolam 1 mg tablet 0.5 mg PO BID PRN atorvastatin 40 mg tablet 40 mg PO DAILY prochlorperazine maleate 5 mg tablet 5 mg PO ONCE PRN paroxetine HCl 20 mg tablet 20 mg PO DAILY clopidogrel 75 mg tablet 75 mg PO DAILY alprazolam 1 mg tablet 1 mg PO DAILY levetiracetam 500 mg tablet 500 mg PO BID esomeprazole magnesium 20 mg capsule,delayed release(DR/EC) 20 mg PO BID lidocaine HCl [Aspercreme (lidocaine HCl)] 4 % cream 1 appl topical QID PRN acetaminophen [Tylenol Extra Strength] 500 mg tablet 500 mg PO Q6H PRN <SERVANDO Barragan - Last Filed: 04/29/22 13:29>
[2022-04-29 14:15] LABS: COVID-19 Test Negative (Negative); IDNOW Serial# 9DB6401D
[2022-04-29 16:22] VITALS: BP 112/65; PULSE 80; RESP 19; O2SAT 100
[2022-04-29 17:54] LABS: MANUAL DIFF FLAG NO
[2022-04-29 17:57] VITALS: BP 105/74; PULSE 88; RESP 16; O2SAT 98
[2022-04-29 18:13] LABS: Alanine Aminotransferase 16 U/L (0-31); Albumin Level 4.4 g/dL (3.5-5.0); Alkaline Phosphatase 71 U/L (39-117); Anion Gap 16 (12-20); Aspartate Amino Transferase 20 U/L (5-31); Bilirubin Total 0.8 mg/dL (0.0-1.0); Blood Urea Nitrogen 10 mg/dL (9-16); Calcium 9.5 mg/dL (8.4-10.2); Carbon Dioxide 19 mmol/L (22-29); Chloride 111 mmol/L (96-108); Estimated Glomerular Filt Rate > 60; Glucose Random 93 mg/dL (60-115); Magnesium 1.9 mg/dL (1.6-2.6); Potassium 3.3 mmol/L (3.3-5.1); Sodium 143 mmol/L (135-145); Total Protein 6.7 g/dL (6.5-8.0)
[2022-04-29 18:18] LABS: B Type Natriuretic Peptide 13 pg/mL (<100); Basophils Percent Auto 0.7 % (0-2); Eosinophils Percent Auto 0.5 % (0-4); Hematocrit 40.4 % (37.0-47.0); Hemoglobin 14.1 g/dl (12.0-16.0); Imm Gran Abs Auto 0.01 X10*3/uL (0.00-0.03); Imm Gran Pct Auto 0.2 % (0.0-0.4); Lymphocytes Absolute Auto 2.5 X10*3/uL (1.2-4.9); Mean Corpuscular HGB Conc 34.9 g/dl (31.0-35.0); Mean Corpuscular Hemoglobin 31.6 pg (27.0-33.0); Mean Corpuscular Volume 90.6 fL (80.0-98.0); Mean Platelet Volume 10.2 fL (9.4-12.3); Monocytes Absolute Auto 0.4 X10*3/uL (0.1-1.2); Monocytes Percent Auto 7.3 % (2-11); Neutrophils Percent Auto 50.3 % (45-73); Platelet Count 254 X10*3/uL (160-400); Red Blood Count 4.46 X10*6/uL (4.20-5.50); Red Cell Distribution Width 12.8 % (11.0-16.0); Troponin-I High Sensitivity 6.2 ng/L (<3.5-17.0)
--- NOTE | 2022-04-29 19:19 | PC.NURSE ---
pt is unable to get in with primary care doc for a month, reports that she saw her primary care doctor at urgent care and he reported that he wouldn't be able to give pain medications. suggested alterative and specialist referrals with pt, pt requesting to speak with provider again prior to discharge.
== END 2022-04-29 19:27 | disposition home or self-care (01) ==
PROVIDERS: Physician Assistant Medical; Emergency Provider Emergency Medicine
DX: R07.89 Other chest pain (principal); M54.50 Low back pain, unspecified; R07.81 Pleurodynia; R51.9 Headache, unspecified; R06.02 Shortness of breath; Z20.822 Contact with and (suspected) exposure to COVID-19; Z20.828 Contact with and (suspected) exposure to other viral communicable diseases; Z79.899 Other long term (current) drug therapy
CPT/HCPCS: 36415; 71046; 80053; 83735; 83880; 84484; 85025; 87635; 93005; 99283; 99284

== ENCOUNTER 2022-06-03 11:12 | Outpatient (REF) | payer MEDICARE, SELFPAY ==
[2022-06-03 13:40] LABS: MANUAL DIFF FLAG NO
[2022-06-03 13:47] LABS: Basophils Percent Auto 0.5 % (0-2); Eosinophils Absolute Auto 0.1 X10*3/uL (0.0-0.4); Eosinophils Percent Auto 0.9 % (0-4); Hematocrit 41.9 % (37.0-47.0); Hemoglobin 14.1 g/dl (12.0-16.0); Imm Gran Abs Auto 0.02 X10*3/uL (0.00-0.03); Imm Gran Pct Auto 0.2 % (0.0-0.4); Lymphocytes Absolute Auto 2.5 X10*3/uL (1.2-4.9); Lymphocytes Percent Auto 29.6 % (20-40); Mean Corpuscular HGB Conc 33.7 g/dl (31.0-35.0); Mean Corpuscular Hemoglobin 31.3 pg (27.0-33.0); Mean Corpuscular Volume 92.9 fL (80.0-98.0); Monocytes Absolute Auto 0.6 X10*3/uL (0.1-1.2); Monocytes Percent Auto 7.4 % (2-11); Neutrophils Absolute Auto 5.3 x10*3/uL (2.0-8.3); Neutrophils Percent Auto 61.4 % (45-73); Platelet Count 297 X10*3/uL (160-400); Red Blood Count 4.51 X10*6/uL (4.20-5.50); Red Cell Distribution Width 12.9 % (11.0-16.0); White Blood Count 8.6 X10*3/uL (4.8-10.8)
[2022-06-03 14:07] LABS: Alanine Aminotransferase 21 U/L (0-31); Albumin Level 4.5 g/dL (3.5-5.0); Alkaline Phosphatase 83 U/L (39-117); Anion Gap 16 (12-20); Aspartate Amino Transferase 24 U/L (5-31); Bilirubin Total 0.7 mg/dL (0.0-1.0); Blood Urea Nitrogen 9 mg/dL (9-16); Calcium 9.5 mg/dL (8.4-10.2); Carbon Dioxide 23 mmol/L (22-29); Chloride 108 mmol/L (96-108); Cholesterol 203 mg/dL; Estimated Glomerular Filt Rate > 60; Glucose Fasting 107 mg/dL (60-99); HDL Cholesterol 45 mg/dL; LDL Cholesterol Calculated 120 mg/dl; Potassium 3.7 mmol/L (3.3-5.1); Sodium 143 mmol/L (135-145); Total Protein 6.8 g/dL (6.5-8.0); Triglycerides 192 mg/dL
[2022-06-03 14:24] LABS: TSH reflex Free T4 1.11 uIU/mL (0.32-4.0)
== END 2022-06-03 11:13 | disposition home or self-care (01) ==
LOC: HO.HMGCLDS 11:12
PROVIDERS: PCP Internal Medicine; Visit Provider Internal Medicine
DX: F33.9 Major depressive disorder, recurrent, unspecified (principal); F41.1 Generalized anxiety disorder; M54.16 Radiculopathy, lumbar region; M94.0 Chondrocostal junction syndrome [Tietze]; R73.01 Impaired fasting glucose; Z76.89 Persons encountering health services in other specified circumstances
CPT/HCPCS: 36415; 80053; 80061; 84443; 85025

== ENCOUNTER 2022-08-26 11:22 | Outpatient (AMB) | payer MEDICARE, SELFPAY ==
--- NOTE | 2022-08-26 11:24 | A.OFFPC_ITS ---
Vital Signs 08/26/22 11:26 Height 5 ft 5 in Weight 170 lb 8 oz BMI 28.4 BP 118/68 Blood Pressure Location Rt brachial Position Sitting Pulse 83 Pulse Source Pulse Oximeter Pulse Oximetry (%) 98 Oxygen Delivery Method Room Air Intake Visit Reasons: 4wk follow up Allergies cefazolin [From [facility]] Allergy (Mild, Verified 08/26/22 11:27) Swelling Medication List - Last Reconciled 08/26/22 by Ciro White MD alprazolam 1 mg PO BEDTIME atorvastatin 40 mg PO DAILY clopidogrel 75 mg PO DAILY esomeprazole magnesium 20 mg PO DAILY oxycodone-acetaminophen 5-325 mg 1 tab PO TID PRN 30 days paroxetine HCl 60 mg PO DAILY prochlorperazine maleate 5 mg PO ONCE PRN prochlorperazine maleate 5 mg PO BID PRN Tobacco use date assessed: 08/26/22 Dental Screening Dental Screen Date: 08/26/22 Did you have a dental visit in the last 12 months?: Yes Did you have a dental problem in the last 6 months where you did not have access to dental care?: No Was dental information given to patient?: No HPI 4wk follow up HPI Details Patient came in today for her monthly pain medication refill visit She is complying with the treatment plan no signs of abuse Patient is aware of side effects She is taking it for lumbar pain and intercostal neuralgia Patient does not want to do any interventional treatment at this time she tells me that she has already tried does and pain medications specialist are not willing to take oral medication for the patient MRI report from 06/20/2022 showed L4-L5 moderate bilateral foraminal stenosis Currently patient is on Percocet 5 mg 3 times a day. Refill sent [facility] Social History Housing: Condominium Alcohol intake: never Patient Tobacco Use Status: Former Tobacco user Tobacco use type: Cigarette e-Cigarette/Vaping Use: Never Used Second Hand Smoke Exposure: No service: No Current occupational status: disabled Current occupational exposures/hazards: No Cognitive needs: No Hearing needs: No Vision needs: Yes Questionnaire Thrive Questionnaire Date Thrive assessed: 06/03/22 AUDIT C Alcohol Use Questionnaire (AUDIT-C) 1. How often do you have a drink containing alcohol?: Never 3. How often do you have six or more drinks on one occasion?: Never Total Score: 0 Score Reviewed/Action Taken: Yes Review of Systems Const Denies chills and Denies fever(s) ENT Denies epistaxis and Denies nasal discharge Resp Denies chest congestion, Denies cough and Denies hemoptysis GI Denies diarrhea and Denies nausea Skin/Breast Denies rash Neuro Reports no additional complaints Psych Reports no additional complaints Endo Reports no additional complaints Physical exam (Primary Care) Vital Signs: Last Vital Signs Pulse 83 08/26/22 11:26 BP 118/68 08/26/22 11:26 Pulse Ox 98 08/26/22 11:26 Oxygen Delivery Method Room Air 08/26/22 11:26 BMI result Body Mass Index 28.4 Tobacco/Smoking Status: Tobacco use Status Tobacco use date assessed 06/03/22 07/29/22 07:48 Patient Tobacco Use Status Former Tobacco user 07/29/22 07:48 Tobacco use type Cigarette 07/29/22 07:48 e-Cigarette/Vaping Use Never Used 07/29/22 07:48 Thrive Assessment: Date of Thrive Assessment Date Thrive assessed 06/03/22 07/29/22 07:48 Const General: cooperative, comfortable and no acute distress Orientation/consciousness: patient oriented x3 HENMT Head: Yes normocephalic Eyes General: appearance normal, both eyes and all related structures Neck Neck: Yes supple Resp Effort & Inspection: normal respiratory effort, no cough and no stridor Cardio Rhythm: regular rhythm Heart sounds: S1 normal heart sound present and S2 normal heart sound present Skin General skin exam: turgor normal Neuro General: patient oriented x3, tone normal and moves all extremities Extrem Right lower extremity: no edema Left lower extremity: no edema Assessment and Plan Assessment & Plan (1) Lumbar foraminal stenosis: Code(s): M48.061 - Spinal stenosis, lumbar region without neurogenic claudication (2) Intercostal neuralgia: Code(s): G58.8 - Other specified mononeuropathies (3) Lumbar pain: Code(s): M54.50 - Low back pain, unspecified Plan Patient came in today for her monthly pain medication refill visit She is complying with the treatment plan no signs of abuse Patient is aware of side effects She is taking it for lumbar pain and intercostal neuralgia Patient does not want to do any interventional treatment at this time she tells me that she has already tried does and pain medications specialist are not willing to take oral medication for the patient MRI report from 06/20/2022 showed L4-L5 moderate bilateral foraminal stenosis Currently patient is on Percocet 5 mg 3 times a day. Refill sent Medications: Refilled oxycodone-acetaminophen 5-325 mg Partial refill allowed 1 tab PO TID 30 days PRN 90 tabs 0RF severe pain (scale score 7-10) clopidogrel 75 mg PO DAILY 30 tabs 0RF Coding Level of Care Code Est Pt Level 3 (28633) Diagnoses Lumbar foraminal stenosis M48.061 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 Lumbar pain M54.50
[2022-08-26 11:26] VITALS: BP 118/68; PULSE 83; O2SAT 98; BMI 28.4
== END 2022-08-26 12:08 | disposition home or self-care (01) ==
PROVIDERS: Visit Provider Internal Medicine
DX: M48.061 Spinal stenosis, lumbar region without neurogenic claudication (principal); G58.8 Other specified mononeuropathies; M54.50 Low back pain, unspecified
CPT/HCPCS: 99213

== ENCOUNTER 2022-09-20 08:21 | Outpatient (AMB) | payer MEDICARE, SELFPAY ==
[2022-09-20 08:25] VITALS: BP 118/70; PULSE 88; BMI 27.9
--- NOTE | 2022-09-20 08:25 | A.OFFVIS_ITS ---
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 Previously living in [facility]. It seems that she has had chest pains for a long time going back, more than 10 years. These are random pains that can happen any time. No specific provoking or relieving factors. On exertion. Can sometimes last all day, and go on for weeks. Any case, she underwent further workup from cardiac standpoint. Per documentation, had undergone echocardiogram, stress testing, Holter and eventually had cardiac catheterization as well. Cardiac catheterization from 2019-significant 2 vessel disease. Status post PCI to mid to distal RCA; PCI to mid LAD. Does not appear that her symptoms actually change much after the PCI. Per documentation, it was felt that the coronary stenosis for probably not the etiology for her chest pains. Overall, she states she feels fine. No specific complaints. She still gets these random pains. However, nothing exertion. She states she is fairly sedentary. She is to be smoker but not anymore. Blood pressures are okay. Not known to be diabetic. [facility] Medical History (Updated 09/20/22 @ 08:37 by Butch Bruno MD) Atherosclerotic cardiovascular disease Family History (Updated 09/20/22 @ 08:29 by Lizzie Parmar) Father Heart attack Social History Housing: Condominium Alcohol intake: never Patient Tobacco Use Status: Former Tobacco user Tobacco use type: Cigarette e-Cigarette/Vaping Use: Never Used Second Hand Smoke Exposure: No service: No Current occupational status: disabled Current occupational exposures/hazards: No Cognitive needs: No Hearing needs: No Vision needs: Yes Review of Systems Const Denies chills, Denies daytime sleepiness, Denies fatigue, Denies fever(s), Denies frequent falls, Denies night sweats, Denies snoring, Denies weakness, Denies weight gain and Denies weight loss Eyes Denies loss of vision ENT Denies dizziness and Denies hearing loss Card Denies chest pain, Denies chest pain with activity, Denies syncope, Denies rapid heart rate, Denies edema, Denies claudication, Denies leg edema, Denies lightheadedness, Denies palpitations, Denies dyspnea, Denies dyspnea on exertion and Denies orthopnea Resp Denies cough, Denies excessive phlegm production, Denies dyspnea, Denies dyspnea on exertion, Denies snoring and Denies wheezing GI Denies abdominal pain, Denies hematochezia, Denies change in bowel habits, Denies change in stool character, Denies heartburn, Denies nausea and Denies vomiting Denies hematuria, Denies urinary frequency and Denies dysuria Musc Denies arthralgias, Denies muscle weakness, Denies numbness and Denies tingling Skin/Breast Denies nail changes and Denies rash Neuro Denies Abnormal speech present, Denies dizziness, Denies syncope, Denies f requent falls, Denies loss of vision, Denies memory loss, Denies numbness, Denies tingling and Denies weakness Psych Denies depression and Denies memory loss Endo Denies fatigue and Denies palpitations Aller/Immun Denies wheezing Physical Exam Vital Signs: Last Vital Signs Pulse 88 09/20/22 08:25 BP 118/70 09/20/22 08:25 BMI result Body Mass Index 27.9 Const General: comfortable and no acute distress Orientation/consciousness: patient oriented x3 HEENT Other: Unremarkable Head: Yes normal to inspection Neck Neck: Yes normal visual inspection Chest Chest palpation & inspection: normal inspection of the chest Resp Auscultation: clear to auscultation bilaterally Cardio Palpation: normal PMI Heart sounds: S1 normal heart sound present, S2 normal heart sound present, no gallops, no murmurs and no rubs GI Palpation (GI): Soft to palpation Back/Spine/Pelvis Other: unremarkable Skin General skin exam: no rashes or lesions noted Neuro General: patient oriented x3 Speech: No Abnormal speech present Extrem General: Yes normal to inspection Psych Mental Status: mental status grossly normal Assessment & Plan Assessment & Plan (1) Atherosclerotic cardiovascular disease: Code(s): I25.10 - Atherosclerotic heart disease of [place] coronary artery without angina pectoris Plan EKG with sinus tachycardia at 104/Min; nonspecific ST-T changes and otherwise unremarkable. Normal UT and corrected QT. Myocardial perfusion imaging study 2019 with no ischemic findings. No wall motion abnormalities. Lexiscan perfusion study. Echocardiogram 2019 with LVEF 63%; normal right ventricular size and systolic function; normal atrial size and unremarkable valves. Aortic root normal in size. No pericardial effusion. Overall, stable coronary disease. Her chest pains are unlikely to be from the coronary disease based on the description and prior documentation. He seems to be on long-term Plavix and that may be continued. With regard to lipids, LDL is on the higher side. Most recently 120mg/dl. Prior LDL levels have been much higher, as much as 177. We can increase the atorvastatin dose to 80 mg daily and recheck in a few months time. If still high, possibly Zetia. Blood pressure seems to be stable. Total time spent including review of all her prior cardiology documentation, testing, documentation, counseling, coordination of care-47 minutes. Orders: Orders Lipid Panel 3 Months E78.5 - Hyperlipidemia, unspecified, I25.10 - Atherosclerotic heart disease of [place] coronary artery without angina pectoris Liver Panel 3 Months I25.10 - Atherosclerotic heart disease of [place] coronary artery without angina pectoris Medications: New atorvastatin 80 mg PO QPM 90 tabs 3RF Refilled clopidogrel 75 mg PO DAILY 90 tabs 3RF Discontinued atorvastatin Discontinued Reason: Doctor's Order 40 mg PO DAILY 90 tabs 0RF Coding Level of Care Code New Pt Level 4 (42351) Diagnoses Atherosclerotic cardiovascular disease I25.10
== END 2022-09-20 08:47 | disposition home or self-care (01) ==
PROVIDERS: PCP Internal Medicine; Referring Provider Internal Medicine; Visit Provider Internal Medicine
DX: I25.10 Atherosclerotic heart disease of native coronary artery without angina pectoris (principal)
CPT/HCPCS: 99214

== ENCOUNTER → 2022-09-20 08:21 | Outpatient (BNVA) | payer MEDICARE, SELFPAY | PROVIDERS: PCP Internal Medicine; Referring Provider Internal Medicine; Visit Provider Internal Medicine | DX: I25.10 Atherosclerotic heart disease of native coronary artery without angina pectoris (principal) | CPT/HCPCS: 99212 ==

== ENCOUNTER 2022-09-27 10:52 | Outpatient (AMB) | payer MEDICARE, SELFPAY ==
[2022-09-27 10:57] VITALS: BP 122/72; PULSE 77; O2SAT 79; BMI 27.8
--- NOTE | 2022-09-27 10:57 | A.OFFPC_ITS ---
Vital Signs 09/27/22 10:57 Height 5 ft 5 in Weight 167 lb BMI 27.8 BP 122/72 Blood Pressure Location Rt brachial Position Sitting Pulse 77 Pulse Source Pulse Oximeter Pulse Oximetry (%) 79 L Oxygen Delivery Method Room Air Intake Visit Reasons: 4 wk follow up Allergies cefazolin [From Anc] Allergy (Mild, Verified 09/27/22 11:02) Swelling Medication List - Last Reconciled 09/27/22 by Ciro White MD atorvastatin 80 mg PO QPM clopidogrel 75 mg PO DAILY esomeprazole magnesium 20 mg PO DAILY oxycodone-acetaminophen 5-325 mg 1 tab PO TID PRN 30 days paroxetine HCl 60 mg PO DAILY prochlorperazine maleate 5 mg PO BID PRN Tobacco use date assessed: 09/27/22 Dental Screening Dental Screen Date: 09/27/22 Did you have a dental visit in the last 12 months?: Yes Did you have a dental problem in the last 6 months where you did not have access to dental care?: No Was dental information given to patient?: No HPI 4 wk follow up HPI Details Patient came in today for her monthly pain medication refill visit She has seen Dr. Spangler cardiology if the this month note reviewed Her statin was increased to 80 mg and Plavix was continued She has an appointment in 6 months for follow-up Intercostal neuralgia: Patient is on Percocet 3 times a day, She is complying with the treatment plan no signs of abuse Patient is aware of side effects Patient does not want to do any interventional treatment at this time she tells me that she has already tried that MRI lumbar spine from 06/20/2022 showed L4-L5 moderate bilateral foraminal stenosis Follow-up 4 weeks [facility] Medical History Atherosclerotic cardiovascular disease Family History Father Heart attack Social History Housing: Condominium Alcohol intake: never Patient Tobacco Use Status: Former Tobacco user Tobacco use type: Cigarette e-Cigarette/Vaping Use: Never Used Second Hand Smoke Exposure: No service: No Current occupational status: disabled Current occupational exposures/hazards: No Cognitive needs: No Hearing needs: No Vision needs: Yes Questionnaire Thrive Questionnaire Date Thrive assessed: 06/03/22 AUDIT C Alcohol Use Questionnaire (AUDIT-C) 1. How often do you have a drink containing alcohol?: Never 3. How often do you have six or more drinks on one occasion?: Never Total Score: 0 Score Reviewed/Action Taken: Yes Review of Systems Const Denies chills and Denies fever(s) ENT Denies epistaxis and Denies nasal discharge Card Denies chest pain Resp Denies chest congestion, Denies cough and Denies hemoptysis GI Denies diarrhea and Denies nausea Skin/Breast Denies rash Neuro Reports no additional complaints Psych Reports no additional complaints Endo Reports no additional complaints Physical exam (Primary Care) Vital Signs: Last Vital Signs Pulse 77 09/27/22 10:57 BP 122/72 09/27/22 10:57 Pulse Ox 79 L 09/27/22 10:57 Oxygen Delivery Method Room Air 09/27/22 10:57 BMI result Body Mass Index 27.8 Tobacco/Smoking Status: Tobacco use Status Tobacco use date assessed 09/27/22 09/27/22 11:02 Patient Tobacco Use Status Former Tobacco user 09/27/22 10:59 Tobacco use type Cigarette 09/27/22 10:59 e-Cigarette/Vaping Use Never Used 09/27/22 10:59 Thrive Assessment: Date of Thrive Assessment Date Thrive assessed 06/03/22 09/27/22 10:59 Const General: cooperative, comfortable and no acute distress Orientation/consciousness: patient oriented x3 HENMT Head: Yes normocephalic Eyes General: appearance normal, both eyes and all related structures Neck Neck: Yes supple Resp Effort & Inspection: normal respiratory effort, no cough and no stridor Cardio Rhythm: regular rhythm Heart sounds: S1 normal heart sound present and S2 normal heart sound present Skin General skin exam: turgor normal Neuro General: patient oriented x3, tone normal and moves all extremities Extrem Right lower extremity: no edema Left lower extremity: no edema Assessment and Plan Assessment & Plan (1) Intercostal neuralgia: Code(s): G58.8 - Other specified mononeuropathies (2) Lumbar foraminal stenosis: Code(s): M48.061 - Spinal stenosis, lumbar region without neurogenic claudication (3) Lumbar pain: Code(s): M54.50 - Low back pain, unspecified (4) Atherosclerotic cardiovascular disease: Code(s): I25.10 - Atherosclerotic heart disease of [place] coronary artery without angina pectoris Plan Patient came in today for her monthly pain medication refill visit She has seen Dr. Spangler cardiology if the this month note reviewed Her statin was increased to 80 mg and Plavix was continued She has an appointment in 6 months for follow-up Intercostal neuralgia: Patient is on Percocet 3 times a day, She is complying with the treatment plan no signs of abuse Patient is aware of side effects Patient does not want to do any interventional treatment at this time she tells me that she has already tried that MRI lumbar spine from 06/20/2022 showed L4-L5 moderate bilateral foraminal stenosis Follow-up 4 weeks Medications: Refilled oxycodone-acetaminophen 5-325 mg Partial refill allowed 1 tab PO TID PRN 90 tabs 0RF severe pain (scale score 7-10) 30 days Coding Level of Care Code Est Pt Level 3 (61564) Diagnoses 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 Lumbar foraminal stenosis M48.061 Lumbar pain M54.50 Atherosclerotic cardiovascular disease I25.10
== END 2022-09-27 11:18 | disposition home or self-care (01) ==
PROVIDERS: Visit Provider Internal Medicine
DX: G58.8 Other specified mononeuropathies (principal); M48.061 Spinal stenosis, lumbar region without neurogenic claudication; M54.50 Low back pain, unspecified; I25.10 Atherosclerotic heart disease of native coronary artery without angina pectoris
CPT/HCPCS: 99213

== ENCOUNTER 2022-10-07 13:19 | Outpatient (AMB) | payer MEDICARE, SELFPAY ==
[2022-10-07 13:20] VITALS: BP 120/82; BMI 27.8
--- NOTE | 2022-10-07 13:20 | A.OFFVIS_ITS ---
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 Scribed for TEJAL Morrison by Glenna Gifford medical office coordinator, on 10/07/2022 at 1:45 pm EST Management Engineer Required: No Information Interpreted: non-clinical & clinical Line Supply: Line Supply Present (Mirna RENEE) Accompanied by: Self / Same As Patient Allergies cefazolin [From [facility]] Allergy (Mild, Verified 10/07/22 13:29) Swelling Post menopausal: Yes HPI HPI Comments History of Present Illness Details She is a perimenopausal woman presenting for annual exam. She attempts to eat healthy and stay active. Not currently sexually active. She was on Depo for 9 years and had no bleeding. Went off Depo last December and reports no bleeding since. She feels she is going through menopause currently. Reports that she is hot all the time for the past couple of months. Hx of anxiety/depression and personality disorder, she is trying to find a new psychiatric provider. Hx of overactive bladder treated with Botox, sx have resolved with treatment. Denies vaginal itching and irritation. STD screening offered; she accepts. Denies family hx of breast, colon and ovarian cancer. Unsure of last pap smear and mammogram. Denies hx of abnormal pap smears. [facility] Medical History Agoraphobia Anxiety and depression 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) Obsessive compulsive disorder Personality disorder Surgical History Hx of dilation and curettage Hx of knee surgery Hx of tonsillectomy Family History Father Heart attack Hypertension Mother Hypertension Social History Household Members Other:: mom Housing: Condominium Alcohol intake: never Patient Tobacco Use Status: Former Tobacco user Tobacco use type: Cigarette Years Smoked: 32 years e-Cigarette/Vaping Use: Never Used Second Hand Smoke Exposure: No service: No Current occupational status: disabled Current occupational exposures/hazards: No Sexual orientation: Straight/Heterosexual Gender identity: Female Cognitive needs: No Hearing needs: No Vision needs: Yes Female Reproductive History Menstrual Menopause type: natural Total pregnancies: 3 Number of Living Children: 0 Ab spontaneous: 3 Review of Systems Const All systems reviewed & are unremarkable except as noted in HPI and below Physical Exam Vital Signs: Last Vital Signs BP 120/82 10/07/22 13:20 BMI result Body Mass Index 27.8 Const General: cooperative, healthy appearing, no acute distress, well developed and alert Orientation/consciousness: patient oriented x3 HEENT Head: Yes normal to inspection Eyes General: appearance normal, both eyes and all related structures Neck Neck: Yes normal visual inspection Thyroid: Thyroid normal Chest Chest palpation & inspection: normal inspection of the chest Breast/axilla inspection: normal inspection of the breasts (no puckering, dimpling, peau de orange, retraction, discharge, masses) Breast/axilla palpation: normal palpation of the breasts Resp Effort & Inspection: normal respiratory effort GI Inspection: Yes normal to inspection Palpation (GI): Soft to palpation Rectal Exam - Female: deferred Other: tense with exam General: Yes bladder normal to palpation External Female Exam: normal external appearance and normal appearance of the urethra Speculum Exam - Vagina: normal appearance of the vagina, normal palpation, norm al vaginal discharge and vagina atrophic Speculum Exam - Cervix: normal appearance of the cervix and normal palpation Bimanual exam- vagina & uterus: normal bimanual exam, normal palpation, uterine size normal, bladder normal to palpation and normal palpation Bimanual Exam- Adnexa, other: normal adnexae and no masses Skin General skin exam: no rashes or lesions noted Neuro General: patient oriented x3 Cognition (Neuro): normal cognition Extrem General: Yes normal to inspection Psych Attitude: cooperative Thought process: Normal thought process present Assessment & Plan Assessment & Plan (1) Encounter for well woman exam: Code(s): Z01.419 - Encounter for gynecological examination (general) (routine) without abnormal findings Plan: Discussed: Current recommendations for pap smears per ASCCP guidelines. Breast awareness and periodic self breast exams. Encouraged yearly mammograms. Maintaining a healthy lifestyle including a well balanced diet including Calcium and Vitamin D and routine exercise. Encouraged patient portal. Call with any abnormal bleeding patterns. All of her questions and concerns were addressed to the best of my ability. RTO in one year for AG. (2) Hot flashes: Code(s): R23.2 - Flushing Plan: Counseled on perimenopause vs menopause. Discussed workup including FSH. She is agreeable. RTO for test results. Orders: Orders Follicle Stimulating Hormone Today R23.2 - Flushing CT NG by PCR Today Z01.419 - Encounter for gynecological examination (general) (routine) without abnormal findings Pap Smear Today Z01.419 - Encounter for gynecological examination (general) (routine) without abnormal findings Coding Level of Care Code New Pt Prev Care 40-64y(79787) Diagnoses Encounter for well woman exam Z01.419 Hot flashes R23.2
== END 2022-10-07 14:15 | disposition home or self-care (01) ==
LOC: HO.HWS 13:19
PROVIDERS: PCP Internal Medicine; Visit Provider Advanced Practice Midwife
DX: R23.2 Flushing (principal); Z01.419 Encounter for gynecological examination (general) (routine) without abnormal findings
CPT/HCPCS: 99203; G0101; Q0091

== ENCOUNTER 2022-10-07 13:19 | Outpatient (REF) | payer MEDICARE, SELFPAY ==
[2022-10-07 18:29] LABS: CT PCR NOT DETECTED (Not Detect.); NG PCR NOT DETECTED (Not Detect.)
[2022-10-12 21:28] LABS: HPV mRNA E6/E7 rflx Not Detected (Not Detected)
== END 2022-10-07 13:20 | disposition home or self-care (01) ==
LOC: HO.LNP 13:19
PROVIDERS: PCP Internal Medicine; Visit Provider Advanced Practice Midwife
DX: Z01.419 Encounter for gynecological examination (general) (routine) without abnormal findings (principal); Z11.51 Encounter for screening for human papillomavirus (HPV); Z20.2 Contact with and (suspected) exposure to infections with a predominantly sexual mode of transmission; R23.2 Flushing
CPT/HCPCS: 0353U; 87624; 88142; 99202; G0101

== ENCOUNTER 2022-10-21 08:23 | Outpatient (AMB) | payer MEDICARE, MEDICAID, SELFPAY ==
[2022-10-21 08:26] VITALS: BP 116/74; PULSE 77; O2SAT 96; BMI 27.7
--- NOTE | 2022-10-21 08:26 | MHC.PC.OV ---
Vital Signs 10/21/22 08:26 Height 5 ft 5 in Weight 166 lb 6 oz BMI 27.7 BP 116/74 Blood Pressure Location Rt brachial Position Sitting Pulse 77 Pulse Source Pulse Oximeter Pulse Oximetry (%) 96 Oxygen Delivery Method Room Air Intake Visit Reasons: 4 week med follow up Allergies cefazolin [From Anc] Allergy (Mild, Verified 10/21/22 08:29) Swelling Medication List - Last Reconciled 10/21/22 by Ciro White MD atorvastatin 80 mg PO QPM clopidogrel 75 mg PO DAILY esomeprazole magnesium (Nexium) 20 mg PO DAILY oxycodone-acetaminophen 5-325 mg 1 tab PO TID PRN 30 days paroxetine HCl 60 mg PO DAILY prochlorperazine maleate 5 mg PO BID PRN Tobacco use date assessed: 10/21/22 Dental Screening Dental Screen Date: 10/21/22 Did you have a dental visit in the last 12 months?: No Did you have a dental problem in the last 6 months where you did not have access to dental care?: No Was dental information given to patient?: No HPI 4 week med follow up HPI Details Patient came in today for her monthly pain medication refill visit She is stable at this time Intercostal neuralgia: Patient is on Percocet 3 times a day, She is complying with the treatment plan no signs of abuse Patient is aware of side effects Patient does not want to do any interventional treatment at this time she tells me that she has already tried that MRI lumbar spine from 06/20/2022 showed L4-L5 moderate bilateral foraminal stenosis Dr. Spangler is her cost analyst Statin 80 mg and Plavix is through cardiology office Follow-up 4 weeks [facility] Medical History Obsessive compulsive disorder Agoraphobia Personality disorder Anxiety and depression 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) Surgical History Hx of dilation and curettage Hx of knee surgery Hx of tonsillectomy Family History Father Heart attack Hypertension Mother Hypertension Social History Household Members Other:: mom Housing: Condominium Alcohol intake: never Patient Tobacco Use Status: Former Tobacco user Tobacco use type: Cigarette Years Smoked: 32 years e-Cigarette/Vaping Use: Never Used Second Hand Smoke Exposure: No service: No Current occupational status: disabled Current occupational exposures/hazards: No Sexual orientation: Straight/Heterosexual Gender identity: Female Cognitive needs: No Hearing needs: No Vision needs: Yes Questionnaire Thrive Questionnaire Date Thrive assessed: 06/03/22 AUDIT C Alcohol Use Questionnaire (AUDIT-C) 1. How often do you have a drink containing alcohol?: Never 3. How often do you have six or more drinks on one occasion?: Never Total Score: 0 Score Reviewed/Action Taken: Yes Review of Systems Const Denies chills and Denies fever(s) ENT Denies epistaxis and Denies nasal discharge Card Denies chest pain Resp Denies chest congestion, Denies cough and Denies hemoptysis GI Denies diarrhea and Denies nausea Skin/Breast Denies rash Neuro Reports no additional complaints Psych Reports no additional complaints Endo Reports no additional complaints Physical exam (Primary Care) Vital Signs: Last Vital Signs Pulse 77 10/21/22 08:26 BP 116/74 10/21/22 08:26 Pulse Ox 96 10/21/22 08:26 Oxygen Delivery Method Room Air 10/21/22 08:26 BMI result Body Mass Index 27.7 Tobacco/Smoking Status: Tobacco use Status Tobacco use date assessed 10/21/22 10/21/22 08:31 Patient Tobacco Use Status Former Tobacco user 10/21/22 08:28 Tobacco use type Cigarette 10/21/22 08:28 e-Cigarette/Vaping Use Never Used 10/21/22 08:28 Thrive Assessment: Date of Thrive Assessment Date Thrive assessed 06/03/22 10/21/22 08:28 Const General: cooperative, comfortable and no acute distress Orientation/consciousness: patient oriented x3 HENMT Head: Yes normocephalic Eyes General: appearance normal, both eyes and all related structures Neck Neck: Yes supple Resp Effort & Inspection: normal respiratory effort, no cough and no stridor Cardio Rhythm: regular rhythm Heart sounds: S1 normal heart sound present and S2 normal heart sound present Skin General skin exam: turgor normal Neuro General: patient oriented x3, tone normal and moves all extremities Extrem Right lower extremity: no edema Left lower extremity: no edema Assessment and Plan Assessment & Plan (1) Intercostal neuralgia: Onset Date: Unknown Code(s): G58.8 - Other specified mononeuropathies (2) Lumbar foraminal stenosis: Code(s): M48.061 - Spinal stenosis, lumbar region without neurogenic claudication (3) Lumbar pain: Code(s): M54.50 - Low back pain, unspecified (4) Atherosclerotic cardiovascular disease: Code(s): I25.10 - Atherosclerotic heart disease of [place] coronary artery without angina pectoris Plan Patient came in today for her monthly pain medication refill visit She is stable at this time Intercostal neuralgia: Patient is on Percocet 3 times a day, She is complying with the treatment plan no signs of abuse Patient is aware of side effects Patient does not want to do any interventional treatment at this time she tells me that she has already tried that MRI lumbar spine from 06/20/2022 showed L4-L5 moderate bilateral foraminal stenosis Dr. Spangler is her cost analyst Statin 80 mg and Plavix is through cardiology office Follow-up 4 weeks Medications: Refilled oxycodone-acetaminophen 5-325 mg Partial refill allowed 1 tab PO TID PRN 90 tabs 0RF severe pain (scale score 7-10) 30 days Coding Level of Care Code Est Pt Level 3 (92052) Diagnoses 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 Lumbar foraminal stenosis M48.061 Lumbar pain M54.50 Atherosclerotic cardiovascular disease I25.10
== END 2022-10-21 09:18 | disposition home or self-care (01) ==
PROVIDERS: PCP Internal Medicine; Visit Provider Internal Medicine
DX: G58.8 Other specified mononeuropathies (principal); M48.061 Spinal stenosis, lumbar region without neurogenic claudication; M54.50 Low back pain, unspecified; I25.10 Atherosclerotic heart disease of native coronary artery without angina pectoris
CPT/HCPCS: 99213

== ENCOUNTER 2022-11-25 10:34 | Outpatient (AMB) | payer MEDICARE, MEDICAID, SELFPAY ==
--- NOTE | 2022-11-25 10:37 | A.OFFPC_ITS ---
Vital Signs 11/25/22 10:38 Height 5 ft 5 in Weight 165 lb 4 oz BMI 27.5 BP 122/70 Blood Pressure Location Rt brachial Position Sitting Pulse 76 Pulse Source Pulse Oximeter Pulse Oximetry (%) 99 Oxygen Delivery Method Room Air Intake Visit Reasons: 4 week follow up meds Allergies cefazolin [From Anc] Allergy (Mild, Verified 11/25/22 10:40) Swelling Medication List - Last Reconciled 11/25/22 by Ciro White MD atorvastatin 80 mg PO QPM clopidogrel 75 mg PO DAILY esomeprazole magnesium (Nexium) 20 mg PO DAILY oxycodone-acetaminophen 5-325 mg 1 tab PO TID PRN 30 days paroxetine HCl 60 mg PO DAILY prochlorperazine maleate 5 mg PO BID PRN Tobacco use date assessed: 11/25/22 Dental Screening Dental Screen Date: 11/25/22 Did you have a dental visit in the last 12 months?: No Did you have a dental problem in the last 6 months where you did not have access to dental care?: No Was dental information given to patient?: Patient declined HPI 4 week follow up meds HPI Details Patient came in today for her monthly pain medication refill visit Due for urine drug screen we will get the sample today Drug contract up-to-date She is stable at this time Intercostal neuralgia: Patient is on Percocet 3 times a day, She is complying with the treatment plan no signs of abuse Patient is aware of side effects Patient does not want to do any interventional treatment at this time she tells me that she has already tried that MRI lumbar spine from 06/20/2022 showed L4-L5 moderate bilateral foraminal stenosis Dr. Spangler is her metal control coordinator Statin 80 mg and Plavix is through cardiology office Follow-up 4 weeks [facility] Medical History Obsessive compulsive disorder Agoraphobia Personality disorder Anxiety and depression 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) Surgical History Hx of dilation and curettage Hx of knee surgery Hx of tonsillectomy Family History Father Heart attack Hypertension Mother Hypertension Social History Household Members Other:: mom Housing: Condominium Alcohol intake: never Patient Tobacco Use Status: Former Tobacco user Tobacco use type: Cigarette Years Smoked: 32 years e-Cigarette/Vaping Use: Never Used Second Hand Smoke Exposure: No service: No Current occupational status: disabled Current occupational exposures/hazards: No Sexual orientation: Straight/Heterosexual Gender identity: Female Cognitive needs: No Hearing needs: No Vision needs: Yes Questionnaire PHQ-9 Over the last 2 weeks, how often have you been bothered by any of the following problems? 1. Little interest or pleasure in doing things: more than half the days 2. Feeling down, depressed, or hopeless: more than half the days 3. Trouble falling or staying asleep, or sleeping too much: more than half the days 4. Feeling tired or having little energy: more than half the days 5. Poor appetite or overeating: more than half the days 6. Feeling bad about yourself - or that you are a failure or have let yourself or your family down: more than half the days 7. Trouble concentrating on things, such as reading the newspaper or watching television: several days 8. Moving or speaking so slowly that other people could have noticed. Or the opposite - being so fidgety or restless that you have been moving around a lot more than usual: more than half the days 9. Thoughts that you would be better off or of hurting yourself in some way: not at all Total score: 15 Depression Screening Interpretation: Positive Depression Screening Follow-up: Existing condition, In treatment and Community Mental Health Worker F/U Depression Screening Done: Yes 45496 - PHQ-9 Billing: Yes Source: Developed by Drs. Dallas Keller, Cassie Frankel, Glynn Blackwell and colleagues, with an educational kane from [employer]. Thrive Questionnaire Date Thrive assessed: 11/25/22 I am a: Patient What is your living situation today?: I have a steady place to live Within the past 12 months, did the food you bought not last and you didn't have the money to get more?: Often true Within the past 12 months, did you worry whether your food would run out before you got money to buy more?: Often true Do you have trouble paying for medicines?: No Do you have trouble getting transportation to medical appointments?: No Do you have trouble paying your heating and electricity bill?: No Do you have trouble taking care of your child, family member or friend?: No Do you have trouble with day-to-day activities such as bathing, preparing meals, shopping, managing finances, etc.?: No Are you currently unemployed and looking for a job?: No Are you interested in more education?: Yes Please select the resources that you would like help with: Food and Education AUDIT C Alcohol Use Questionnaire (AUDIT-C) 1. How often do you have a drink containing alcohol?: Never 3. How often do you have six or more drinks on one occasion?: Never Total Score: 0 Score Reviewed/Action Taken: Yes FIFI-7 AMB Questionnaire FIFI-7 Date FIFI - 7 assessed: 11/25/22 Feeling nervous, anxious, or on edge: 2 = More than half the days Not being able to stop or control worryin = More than half the days Worrying too much about different things: 2 = More than half the days Trouble relaxin = More than half the days Being so restless that it is hard to sit still: 2 = More than half the days Becoming easily annoyed or irritable: 3 = Nearly every day Feeling afraid as if something awful might happen: 2 = More than half the days Total FIFI-7 score (0-4 normal; 5-9 mild; 10-14 moderate; 15-21 severe): 15 Source: Developed by Drs. Dallas Keller, Cassie Frankel, Glynn Blackwell and colleagues, with an educational kane from [employer]. FIFI-7 Assessment Billing FIFI-7 Assessment Tool: FIFI-7 Assessment 04704 Review of Systems Const Denies chills and Denies fever(s) ENT Denies epistaxis and Denies nasal discharge Resp Denies chest congestion, Denies cough and Denies hemoptysis GI Denies diarrhea and Denies nausea Skin/Breast Denies rash Neuro Reports no additional complaints Psych Reports no additional complaints Endo Reports no additional complaints Physical exam (Primary Care) Vital Signs: Last Vital Signs Pulse 76 11/25/22 10:38 BP 122/70 11/25/22 10:38 Pulse Ox 99 11/25/22 10:38 Oxygen Delivery Method Room Air 10/13/23 10:38 BMI result Body Mass Index 27.5 Tobacco/Smoking Status: Tobacco use Status Tobacco use date assessed 11/25/22 11/25/22 10:43 Patient Tobacco Use Status Former Tobacco user 11/25/22 10:43 Tobacco use type Cigarette 11/25/22 10:43 e-Cigarette/Vaping Use Never Used 11/25/22 10:43 PHQ-9: PHQ-9 Score PHQ-9: Total score 15 11/25/22 12:50 Depression Screening Interpretation: Positive Depression Screening Follow-up: Existing condition, In treatment and Community Mental Health Worker F/U Thrive Assessment: Date of Thrive Assessment Date Thrive assessed 11/25/22 11/25/22 12:50 Const General: cooperative, comfortable and no acute distress Orientation/consciousness: patient oriented x3 HENMT Head: Yes normocephalic Eyes General: appearance normal, both eyes and all related structures Neck Neck: Yes supple Resp Effort & Inspection: normal respiratory effort, no cough and no stridor Cardio Rhythm: regular rhythm Heart sounds: S1 normal heart sound present and S2 normal heart sound present Skin General skin exam: turgor normal Neuro General: patient oriented x3, tone normal and moves all extremities Extrem Right lower extremity: no edema Left lower extremity: no edema Assessment and Plan Assessment & Plan (1) Intercostal neuralgia: Onset Date: Unknown Code(s): G58.8 - Other specified mononeuropathies (2) Lumbar foraminal stenosis: Code(s): M48.061 - Spinal stenosis, lumbar region without neurogenic claudication (3) Narcotic dependency, continuous: Code(s): F11.20 - Opioid dependence, uncomplicated (4) Lumbar pain: Code(s): M54.50 - Low back pain, unspecified (5) Atherosclerotic cardiovascular disease: Code(s): I25.10 - Atherosclerotic heart disease of [place] coronary artery without angina pectoris Plan Patient came in today for her monthly pain medication refill visit Due for urine drug screen we will get the sample today Drug contract up-to-date She is stable at this time Intercostal neuralgia: Patient is on Percocet 3 times a day, She is complying with the treatment plan no signs of abuse Patient is aware of side effects Patient does not want to do any interventional treatment at this time she tells me that she has already tried that MRI lumbar spine from 06/20/2022 showed L4-L5 moderate bilateral foraminal stenosis Dr. Spangler is her metal control coordinator Statin 80 mg and Plavix is through cardiology office Follow-up 4 weeks Orders: Orders Drug Screen Urine Today F11.20 - Opioid dependence, uncomplicated Opiates GCMS Expanded, Ur Today F11.20 - Opioid dependence, uncomplicated Coding Level of Care Code Est Pt Level 4 (04951) Diagnoses 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 Lumbar foraminal stenosis M48.061 Narcotic dependency, continuous F11.20 Lumbar pain M54.50 Atherosclerotic cardiovascular disease I25.10 Additional Codes FIFI-7 Assessment Billing - FIFI-7 Assessment Tool: FIFI-7 Assessment 60849 ([id number])
[2022-11-25 10:38] VITALS: BP 122/70; PULSE 76; O2SAT 99; BMI 27.5
== END 2022-11-25 11:12 | disposition home or self-care (01) ==
PROVIDERS: PCP Internal Medicine; Visit Provider Internal Medicine
DX: G58.8 Other specified mononeuropathies (principal); M48.061 Spinal stenosis, lumbar region without neurogenic claudication; F11.20 Opioid dependence, uncomplicated; M54.50 Low back pain, unspecified; I25.10 Atherosclerotic heart disease of native coronary artery without angina pectoris
CPT/HCPCS: 99214

== ENCOUNTER 2022-11-25 13:44 | Outpatient (REF) | payer MEDICARE, MEDICAID, SELFPAY ==
[2022-11-29 13:27] LABS: Barbiturates, Urine NOT DETECTED (Not Detect); Phencyclidine Screen Urine NOT DETECTED (Not Detect)
[2022-11-29 13:28] LABS: Amphetamine Screen Urine NOT DETECTED (Not Detect)
[2022-11-29 13:29] LABS: Benzodiazepines Screen Urine NOT DETECTED (Not Detect); Cocaine Screen Urine NOT DETECTED (Not Detect); Opiate Screen Urine POSITIVE (Not Detect)
[2022-11-29 13:30] LABS: Cannabinoid Screen Urine NOT DETECTED (Not Detect); Fentanyl, urine Not Detected (Not Detect)
[2022-12-02 15:22] LABS: Hydrocodone, Ur NEGATIVE; Hydromorphone, Ur NEGATIVE; Morphine, Ur NEGATIVE
[2022-12-02 15:23] LABS: Norhydrocodone, Ur NEGATIVE
[2022-12-02 15:24] LABS: Codeine, Ur NEGATIVE
== END 2022-11-25 13:45 | disposition home or self-care (01) ==
LOC: HO.LNP 13:44
PROVIDERS: Visit Provider Internal Medicine
DX: F11.20 Opioid dependence, uncomplicated (principal)
CPT/HCPCS: 80307; 80365; G0480

== ENCOUNTER 2022-12-27 08:22 | Outpatient (AMB) | payer MEDICARE, MEDICAID, SELFPAY ==
--- NOTE | 2022-12-27 08:35 | A.OFFPC_ITS ---
Vital Signs 12/27/22 08:36 Height 5 ft 5 in Weight 166 lb 4 oz BMI 27.7 BP 112/62 Blood Pressure Location Rt brachial Position Sitting Pulse 84 Pulse Source Pulse Oximeter Pulse Oximetry (%) 98 Oxygen Delivery Method Room Air Intake Visit Reasons: 4 week follow up Allergies cefazolin [From [facility]] Allergy (Mild, Verified 12/27/22 08:36) Swelling Medication List - Last Reconciled 12/27/22 by Ciro White MD atorvastatin 80 mg PO QPM clopidogrel 75 mg PO DAILY esomeprazole magnesium (Nexium) 20 mg PO DAILY oxycodone-acetaminophen 5-325 mg 1 tab PO TID PRN 30 days paroxetine HCl 60 mg PO DAILY prochlorperazine maleate 5 mg PO BID PRN Tobacco use date assessed: 12/27/22 Dental Screening Dental Screen Date: 12/27/22 Did you have a dental visit in the last 12 months?: No Did you have a dental problem in the last 6 months where you did not have access to dental care?: No Was dental information given to patient?: Patient has dentist HPI 4 week follow up HPI Details Patient came in today for her monthly pain medication refill visit Due for urine drug screen was done last visit reviewed Drug contract up-to-date, next contract need to be renewed March of 2023 She is stable at this time, offer no new complaints today Intercostal neuralgia: Patient is on Percocet 3 times a day, She is complying with the treatment plan no signs of abuse Patient is aware of side effects Patient does not want to do any interventional treatment at this time she tells me that she has already tried that MRI lumbar spine from 06/20/2022 showed L4-L5 moderate bilateral foraminal stenosis Dr. Spangler is her new vehicle sales consultant Statin 80 mg and Plavix is through cardiology office [facility] Medical History Obsessive compulsive disorder Agoraphobia Personality disorder Anxiety and depression 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) Surgical History Hx of dilation and curettage Hx of knee surgery Hx of tonsillectomy Family History Father Heart attack Hypertension Mother Hypertension Social History Household Members Other:: mom Housing: Condominium Alcohol intake: never Patient Tobacco Use Status: Former Tobacco user Tobacco use type: Cigarette Years Smoked: 32 years e-Cigarette/Vaping Use: Never Used Second Hand Smoke Exposure: No service: No Current occupational status: disabled Current occupational exposures/hazards: No Sexual orientation: Straight/Heterosexual Gender identity: Female Cognitive needs: No Hearing needs: No Vision needs: Yes Questionnaire PHQ-9 Over the last 2 weeks, how often have you been bothered by any of the following problems? 1. Little interest or pleasure in doing things: more than half the days 2. Feeling down, depressed, or hopeless: several days 3. Trouble falling or staying asleep, or sleeping too much: nearly every day 4. Feeling tired or having little energy: several days 5. Poor appetite or overeating: not at all 6. Feeling bad about yourself - or that you are a failure or have let yourself or your family down: more than half the days 7. Trouble concentrating on things, such as reading the newspaper or watching television: more than half the days 8. Moving or speaking so slowly that other people could have noticed. Or the opposite - being so fidgety or restless that you have been moving around a lot more than usual: not at all 9. Thoughts that you would be better off or of hurting yourself in some way: not at all Total score: 11 Depression Screening Interpretation: Positive Depression Screening Follow-up: Existing condition and In treatment Depression Screening Done: Yes 46238 - PHQ-9 Billing: Yes Source: Developed by Drs. Dallas Keller, Cassie Frankel, Glynn Blackwell and colleagues, with an educational kane from [employer]. Thrive Questionnaire Date Thrive assessed: 11/25/22 AUDIT C Alcohol Use Questionnaire (AUDIT-C) 1. How often do you have a drink containing alcohol?: Never 3. How often do you have six or more drinks on one occasion?: Never Total Score: 0 Score Reviewed/Action Taken: Yes FIFI-7 AMB Questionnaire FIFI-7 Date FIFI - 7 assessed: 11/25/22 Source: Developed by Drs. Dallas Keller, Glynn Kingston Kroenke and colleagues, with an educational kane from [employer]. Review of Systems Const Denies chills and Denies fever(s) ENT Denies epistaxis and Denies nasal discharge Card Denies chest pain Resp Denies chest congestion, Denies cough and Denies hemoptysis GI Denies diarrhea and Denies nausea Skin/Breast Denies rash Neuro Reports no additional complaints Psych Reports no additional complaints Endo Reports no additional complaints Physical exam (Primary Care) Vital Signs: Last Vital Signs Pulse 84 12/27/22 08:36 BP 112/62 12/27/22 08:36 Pulse Ox 98 12/27/22 08:36 Oxygen Delivery Method Room Air 12/27/22 08:36 BMI result Body Mass Index 27.7 Tobacco/Smoking Status: Tobacco use Status Tobacco use date assessed 12/27/22 12/27/22 08:37 Patient Tobacco Use Status Former Tobacco user 12/27/22 08:37 Tobacco use type Cigarette 12/27/22 08:37 e-Cigarette/Vaping Use Never Used 12/27/22 08:37 PHQ-9: PHQ-9 Score PHQ-9: Total score 11 12/27/22 08:49 Depression Screening Interpretation: Positive Depression Screening Follow-up: Existing condition and In treatment Thrive Assessment: Date of Thrive Assessment Date Thrive assessed 11/25/22 12/27/22 08:37 Const General: cooperative, comfortable and no acute distress Orientation/consciousness: patient oriented x3 HENMT Head: Yes normocephalic Eyes General: appearance normal, both eyes and all related structures Neck Neck: Yes supple Resp Effort & Inspection: normal respiratory effort, no cough and no stridor Cardio Rhythm: regular rhythm Heart sounds: S1 normal heart sound present and S2 normal heart sound present Skin General skin exam: turgor normal Neuro General: patient oriented x3, tone normal and moves all extremities Extrem Right lower extremity: no edema Left lower extremity: no edema Assessment and Plan Assessment & Plan (1) Intercostal neuralgia: Onset Date: Unknown Code(s): G58.8 - Other specified mononeuropathies (2) Lumbar foraminal stenosis: Code(s): M48.061 - Spinal stenosis, lumbar region without neurogenic claudication (3) Narcotic dependency, continuous: Code(s): F11.20 - Opioid dependence, uncomplicated (4) Lumbar pain: Code(s): M54.50 - Low back pain, unspecified (5) Atherosclerotic cardiovascular disease: Code(s): I25.10 - Atherosclerotic heart disease of [place] coronary artery without angina pectoris Plan Patient came in today for her monthly pain medication refill visit Due for urine drug screen was done last visit reviewed Drug contract up-to-date, next contract need to be renewed March of 2023 She is stable at this time, offer no new complaints today Intercostal neuralgia: Patient is on Percocet 3 times a day, She is complying with the treatment plan no signs of abuse Patient is aware of side effects Patient does not want to do any interventional treatment at this time she tells me that she has already tried that MRI lumbar spine from 06/20/2022 showed L4-L5 moderate bilateral foraminal stenosis Dr. Spangler is her new vehicle sales consultant Statin 80 mg and Plavix is through cardiology office Depression treatment through Psychiatry Medications: Refilled oxycodone-acetaminophen 5-325 mg Partial refill allowed 1 tab PO TID PRN 90 tabs 0RF severe pain (scale score 7-10) 30 days Coding Level of Care Code Est Pt Level 3 (49403) Diagnoses 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 Lumbar foraminal stenosis M48.061 Narcotic dependency, continuous F11.20 Lumbar pain M54.50 Atherosclerotic cardiovascular disease I25.10
[2022-12-27 08:36] VITALS: BP 112/62; PULSE 84; O2SAT 98; BMI 27.7
== END 2022-12-27 08:48 | disposition home or self-care (01) ==
PROVIDERS: PCP Internal Medicine; Visit Provider Internal Medicine
DX: G58.8 Other specified mononeuropathies (principal); M48.061 Spinal stenosis, lumbar region without neurogenic claudication; F11.20 Opioid dependence, uncomplicated; M54.50 Low back pain, unspecified; I25.10 Atherosclerotic heart disease of native coronary artery without angina pectoris
CPT/HCPCS: 99213

== ENCOUNTER 2023-01-10 09:26 | Outpatient (AMB) | payer MEDICARE, MEDICAID, SELFPAY ==
[2023-01-10 10:33] VITALS: BP 110/70; PULSE 90; TEMP 36.1; O2SAT 97; BMI 27.1
--- NOTE | 2023-01-10 10:33 | MHC.OFFWIV ---
Intake Vital Signs 01/10/23 10:33 Height 5 ft 5 in Weight 163 lb BMI 27.1 BP 110/70 Blood Pressure Location Rt brachial Position Sitting Pulse 90 Pulse Source Pulse Oximeter Temp 97.0 F Temp Source Temporal Artery Scan Pulse Oximetry (%) 97 Oxygen Delivery Method Room Air Intake Visit Reasons: EP Loose stools, Cold, tired, mucus (masked) Intake Note: pt is here for c/o loose stools, tired, chest congestion, loss of voice Patient Tobacco Use Status: Former Tobacco user Allergies cefazolin [From [facility]] Allergy (Mild, Verified 01/10/23 10:39) Swelling Medication List - Last Reconciled 01/10/23 by Martín Jones MD atorvastatin 80 mg PO QPM azithromycin take 500 mg today (day 1), then 250 mg for 4 days (days 2-5) PO clopidogrel 75 mg PO DAILY esomeprazole magnesium (Nexium) 20 mg PO DAILY oxycodone-acetaminophen 5-325 mg 1 tab PO TID PRN 30 days paroxetine HCl 60 mg PO DAILY prochlorperazine maleate 5 mg PO BID PRN Do you need a note to return to daycare/school/sports/work: Yes HPI EP Loose stools, Cold, tired, mucus (masked) HPI Details Patient presents for a sick visit. Reporting symptoms of sinus congestion, sore throat and difficulty swallowing. Low-grade fever. No family member is sick. No recent travel. Patient reports symptoms of malaise and fatigue. PFS Medical History Obsessive compulsive disorder Agoraphobia Personality disorder Anxiety and depression 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) Surgical History Hx of dilation and curettage Hx of knee surgery Hx of tonsillectomy Family History Father Heart attack Hypertension Mother Hypertension Household Members Other:: mom Housing: Condominium Alcohol intake: never Patient Tobacco Use Status: Former Tobacco user Tobacco use type: Cigarette Years Smoked: 32 years e-Cigarette/Vaping Use: Never Used Second Hand Smoke Exposure: No service: No Current occupational status: disabled Current occupational exposures/hazards: No Sexual orientation: Straight/Heterosexual Gender identity: Female Cognitive needs: No Hearing needs: No Vision needs: Yes Physical Exam Vital Signs: Last Vital Signs Temp 97.0 F 01/10/23 10:33 Pulse 90 01/10/23 10:33 BP 110/70 01/10/23 10:33 Pulse Ox 97 01/10/23 10:33 Oxygen Delivery Method Room Air 01/10/23 10:33 BMI result Body Mass Index 27.1 Const General: cooperative and healthy appearing Nutritional Appearance: well nourished Orientation/consciousness: patient oriented x3 Limitations: no limitations HEENT Head: Yes normal to inspection Eyes General: appearance normal, both eyes and all related structures Neck Neck: Yes normal visual inspection Chest Chest palpation & inspection: normal palpation of entire chest wall Resp Effort & Inspection: normal respiratory effort Neuro General: patient oriented x3 Assessment & Plan Assessment & Plan (1) Upper respiratory tract infection: Code(s): J06.9 - Acute upper respiratory infection, unspecified Plan: Antibiotics ordered. Increase fluid intake. Tylenol for aches and pains. If symptoms worsen, follow-up here for a recheck. Orders: Orders SARS-CoV2/FLU/RSV Today R43.9 - Unspecified disturbances of smell and taste Medications: New azithromycin take 500 mg today (day 1), then 250 mg for 4 days (days 2-5) PO 6 tabs 0RF Coding Level of Care Code Est Pt Level 3 (89920) Diagnoses Upper respiratory tract infection J06.9
== END 2023-01-10 11:37 | disposition home or self-care (01) ==
PROVIDERS: PCP Internal Medicine; Visit Provider Internal Medicine
DX: J06.9 Acute upper respiratory infection, unspecified (principal)
CPT/HCPCS: 99213

== ENCOUNTER 2023-01-10 11:12 | Outpatient (REF) | payer MEDICARE, MEDICAID, SELFPAY ==
[2023-01-10 15:29] LABS: Influenza A PCR NEGATIVE (Negative); Influenza B PCR NEGATIVE (Negative); Resp Syncy Virus RNA Qual PCR POSITIVE (Negative); SARS COV2 PCR INHOUSE NEGATIVE (Negative)
== END 2023-01-10 11:13 | disposition home or self-care (01) ==
LOC: HO.LAB 11:12
PROVIDERS: Visit Provider Internal Medicine
DX: Z11.52 Encounter for screening for COVID-19 (principal); Z20.822 Contact with and (suspected) exposure to COVID-19; R43.9 Unspecified disturbances of smell and taste
CPT/HCPCS: 0241U

== ENCOUNTER 2023-01-24 13:06 | Outpatient (AMB) | payer MEDICARE, MEDICAID, SELFPAY ==
[2023-01-24 13:12] VITALS: BP 112/64; PULSE 96; O2SAT 95; BMI 27.3
--- NOTE | 2023-01-24 13:12 | MHC.PC.OV ---
Vital Signs 01/24/23 13:12 Height 5 ft 5 in Weight 164 lb 4 oz BMI 27.3 BP 112/64 Blood Pressure Location Rt brachial Position Sitting Pulse 96 Pulse Source Pulse Oximeter Pulse Oximetry (%) 95 Oxygen Delivery Method Room Air Intake Visit Reasons: 4 week follow up Allergies cefazolin [From Anc] Allergy (Mild, Verified 01/10/23 10:39) Swelling Medication List - Last Reconciled 01/24/23 by Ciro White MD atorvastatin 80 mg PO QPM azithromycin take 500 mg today (day 1), then 250 mg for 4 days (days 2-5) PO clopidogrel 75 mg PO DAILY esomeprazole magnesium (Nexium) 20 mg PO DAILY oxycodone-acetaminophen 5-325 mg 1 tab PO TID PRN 30 days paroxetine HCl 60 mg PO DAILY prednisone 50 mg PO DAILY 5 days prochlorperazine maleate 5 mg PO BID PRN Tobacco use date assessed: 12/27/22 HPI 4 week follow up HPI Details Patient came in today for her monthly pain medication refill visit Patient had RSV infection few days ago, she is still recovering from it Continued to have cough with mild chest congestion, and feel short of breath at time On examination she has wheezing right side of her lung I have ordered chest x-ray Earlier patient was treated with the prednisone and she felt better after that. Intercostal neuralgia: Patient is on Percocet 3 times a day, She is complying with the treatment plan no signs of abuse Patient is aware of side effects Patient does not want to do any interventional treatment at this time she tells me that she has already tried that MRI lumbar spine from 06/20/2022 showed L4-L5 moderate bilateral foraminal stenosis Drug contract up-to-date, next contract need to be renewed March Dr. Spangler is her customer support engineer Statin 80 mg and Plavix is through cardiology office Depression treatment through Psychiatry [facility] Medical History Obsessive compulsive disorder Agoraphobia Personality disorder Anxiety and depression 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) Surgical History Hx of dilation and curettage Hx of knee surgery Hx of tonsillectomy Family History Father Heart attack Hypertension Mother Hypertension Social History Household Members Other:: mom Housing: Condominium Alcohol intake: never Patient Tobacco Use Status: Former Tobacco user Tobacco use type: Cigarette Years Smoked: 32 years e-Cigarette/Vaping Use: Never Used Second Hand Smoke Exposure: No service: No Current occupational status: disabled Current occupational exposures/hazards: No Sexual orientation: Straight/Heterosexual Gender identity: Female Cognitive needs: No Hearing needs: No Vision needs: Yes Questionnaire Thrive Questionnaire Date Thrive assessed: 11/25/22 FIFI-7 AMB Questionnaire FIFI-7 Date FIFI - 7 assessed: 11/25/22 Source: Developed by Drs. Dallas Keller, Cassie Frankel, Glynn Blackwell and colleagues, with an educational kane from [facility]. Review of Systems Const Denies chills and Denies fever(s) ENT Denies epistaxis and Denies nasal discharge Card Denies chest pain Resp Denies hemoptysis GI Denies diarrhea and Denies nausea Skin/Breast Denies rash Neuro Reports no additional complaints Psych Reports no additional complaints Endo Reports no additional complaints Physical exam (Primary Care) Vital Signs: Last Vital Signs Pulse 96 01/24/23 13:12 BP 112/64 01/24/23 13:12 Pulse Ox 95 01/24/23 13:12 Oxygen Delivery Method Room Air 01/24/23 13:12 BMI result Body Mass Index 27.3 Tobacco/Smoking Status: Tobacco use Status Tobacco use date assessed 12/27/22 01/24/23 13:15 Patient Tobacco Use Status Former Tobacco user 01/24/23 13:15 Tobacco use type Cigarette 01/24/23 13:15 e-Cigarette/Vaping Use Never Used 01/24/23 13:15 Thrive Assessment: Date of Thrive Assessment Date Thrive assessed 11/25/22 01/24/23 13:15 Const General: cooperative, comfortable and no acute distress Orientation/consciousness: patient oriented x3 HENMT Head: Yes normocephalic Eyes General: appearance normal, both eyes and all related structures Neck Neck: Yes supple Resp Other: Wheezing right side of lung Effort & Inspection: no cough and no stridor Cardio Rhythm: regular rhythm Heart sounds: S1 normal heart sound present and S2 normal heart sound present Skin General skin exam: turgor normal Neuro General: patient oriented x3, tone normal and moves all extremities Extrem Right lower extremity: no edema Left lower extremity: no edema Assessment and Plan Assessment & Plan (1) Wheezing: Code(s): R06.2 - Wheezing (2) RSV/bronchiolitis: Code(s): J21.0 - Acute bronchiolitis due to respiratory syncytial virus (3) Narcotic dependency, continuous: Code(s): F11.20 - Opioid dependence, uncomplicated (4) Intercostal neuralgia: Onset Date: Unknown Code(s): G58.8 - Other specified mononeuropathies (5) Lumbar foraminal stenosis: Code(s): M48.061 - Spinal stenosis, lumbar region without neurogenic claudication (6) Lumbar pain: Code(s): M54.50 - Low back pain, unspecified (7) Atherosclerotic cardiovascular disease: Code(s): I25.10 - Atherosclerotic heart disease of [place] coronary artery without angina pectoris Plan Patient came in today for her monthly pain medication refill visit Patient had RSV infection few days ago, she is still recovering from it Continued to have cough with mild chest congestion, and feel short of breath at time On examination she has wheezing right side of her lung I have ordered chest x-ray Earlier patient was treated with the prednisone and she felt better after that. Intercostal neuralgia: Patient is on Percocet 3 times a day, She is complying with the treatment plan no signs of abuse Patient is aware of side effects Patient does not want to do any interventional treatment at this time she tells me that she has already tried that MRI lumbar spine from 06/20/2022 showed L4-L5 moderate bilateral foraminal stenosis Drug contract up-to-date, next contract need to be renewed March Dr. Spangler is her customer support engineer Statin 80 mg and Plavix is through cardiology office Depression treatment through Psychiatry Orders: Orders XR chest 2V Today J21.0 - Acute bronchiolitis due to respiratory syncytial virus, R06.2 - Wheezing Medications: Refilled oxycodone-acetaminophen 5-325 mg Partial refill allowed 1 tab PO TID 30 days PRN 90 tabs 0RF severe pain (scale score 7-10) Coding Level of Care Code Est Pt Level 4 (84550) Diagnoses Wheezing R06.2 RSV/bronchiolitis J21.0 Narcotic dependency, continuous F11.20 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 Lumbar foraminal stenosis M48.061 Lumbar pain M54.50 Atherosclerotic cardiovascular disease I25.10
== END 2023-01-24 13:32 | disposition home or self-care (01) ==
PROVIDERS: PCP Internal Medicine; Visit Provider Internal Medicine
DX: R06.2 Wheezing (principal); J21.0 Acute bronchiolitis due to respiratory syncytial virus; F11.20 Opioid dependence, uncomplicated; G58.8 Other specified mononeuropathies; M48.061 Spinal stenosis, lumbar region without neurogenic claudication; M54.50 Low back pain, unspecified; I25.10 Atherosclerotic heart disease of native coronary artery without angina pectoris
CPT/HCPCS: 99214

== ENCOUNTER 2023-01-24 14:14 | Outpatient (REF) | payer MEDICARE, MEDICAID, SELFPAY ==
--- NOTE | ~2023-01-24 | XR_ITS ---
EXAMINATION: XR CHEST 2 VIEW CLINICAL INFORMATION: Wheezing COMPARISON: 04/29/2022 TECHNIQUE: PA and lateral views of the chest obtained. FINDINGS: The lungs are clear. There are no pleural effusions. The cardiomediastinal silhouette is normal. XR/XR chest 2V IMPRESSION: No acute cardiopulmonary disease.
== END 2023-01-24 14:15 | disposition home or self-care (01) ==
LOC: HO.HMGCX 14:14
PROVIDERS: PCP Internal Medicine; Visit Provider Internal Medicine
DX: R06.2 Wheezing (principal); J21.0 Acute bronchiolitis due to respiratory syncytial virus
CPT/HCPCS: 71046

== ENCOUNTER 2023-01-30 11:26 | Outpatient (AMB) | payer MEDICARE, MEDICAID, SELFPAY ==
[2023-01-30 13:19] VITALS: BP 130/70; PULSE 94; TEMP 36.3; O2SAT 99; BMI 26.3
--- NOTE | 2023-01-30 13:19 | MHC.OFFWIV ---
Intake Vital Signs 01/30/23 13:19 Height 5 ft 5 in Weight 158 lb BMI 26.3 BP 130/70 Blood Pressure Location Lt brachial Position Sitting Pulse 94 Pulse Source Pulse Oximeter Temp 97.4 F Temp Source Temporal Artery Scan Pulse Oximetry (%) 99 Oxygen Delivery Method Room Air Intake Visit Reasons: EP, tired, fatigue Intake Note: pt is here today for tired, fatigue started thanksgiving Patient Tobacco Use Status: Former Tobacco user Allergies cefazolin [From [facility]] Allergy (Mild, Verified 01/30/23 14:00) Swelling Medication List - Last Reconciled 01/30/23 by Martín Jones MD atorvastatin 80 mg PO QPM clopidogrel 75 mg PO DAILY oxycodone-acetaminophen 5-325 mg 1 tab PO TID PRN 30 days prochlorperazine maleate 5 mg PO BID PRN Do you need a note to return to daycare/school/sports/work: Yes HPI EP, tired, fatigue HPI Details 52 yr female presents for a sick visit. Patient was diagnosed with RSV infection two weeks ago. Continues to feel tired and fatigue since then. Saw her PCP who ordered a Cxr which was unremarkable. Recvd a shingles vaccine and her fatigue sx has worsened. [facility], [facility] Medical History Obsessive compulsive disorder Agoraphobia Personality disorder Anxiety and depression 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) Surgical History Hx of dilation and curettage Hx of knee surgery Hx of tonsillectomy Family History Father Heart attack Hypertension Mother Hypertension Social History Household Members Other:: mom Housing: Condominium Alcohol intake: never Patient Tobacco Use Status: Former Tobacco user Tobacco use type: Cigarette Years Smoked: 32 years e-Cigarette/Vaping Use: Never Used Second Hand Smoke Exposure: No service: No Current occupational status: disabled Current occupational exposures/hazards: No Sexual orientation: Straight/Heterosexual Gender identity: Female Cognitive needs: No Hearing needs: No Vision needs: Yes Physical Exam Vital Signs: Last Vital Signs Temp 97.4 F 01/30/23 13:19 Pulse 94 01/30/23 13:19 BP 130/70 01/30/23 13:19 Pulse Ox 99 01/30/23 13:19 Oxygen Delivery Method Room Air 01/30/23 13:19 BMI result Body Mass Index 26.3 Const General: cooperative and healthy appearing Nutritional Appearance: well nourished Orientation/consciousness: patient oriented x3 Limitations: no limitations HEENT Head: Yes normal to inspection Eyes General: appearance normal, both eyes and all related structures Neck Neck: Yes normal visual inspection Chest Chest palpation & inspection: normal palpation of entire chest wall Resp Effort & Inspection: normal respiratory effort Neuro General: patient oriented x3 Assessment & Plan Assessment & Plan (1) Fatigue: Code(s): R53.83 - Other fatigue Plan: BW ordered. If sx not better to follow up here. Coding Level of Care Code Est Pt Level 3 (53022) Diagnoses Fatigue R53.83
== END 2023-01-30 14:13 | disposition home or self-care (01) ==
PROVIDERS: PCP Internal Medicine; Visit Provider Internal Medicine
DX: R53.83 Other fatigue (principal)
CPT/HCPCS: 99213

== ENCOUNTER 2023-01-30 14:00 | Outpatient (REF) | payer MEDICARE, MEDICAID, SELFPAY ==
[2023-01-30 16:16] LABS: Hematocrit 43.4 % (37.0-47.0); Mean Corpuscular HGB Conc 32.3 g/dl (31.0-35.0); Mean Corpuscular Hemoglobin 30.4 pg (27.0-33.0); Mean Corpuscular Volume 94.1 fL (80.0-98.0); Mean Platelet Volume 11.3 fL (9.4-12.3); Platelet Count 248 X10*3/uL (160-400); Red Blood Count 4.61 X10*6/uL (4.20-5.50); Red Cell Distribution Width 13.5 % (11.0-16.0); White Blood Count 6.3 X10*3/uL (4.8-10.8)
[2023-01-30 16:35] LABS: Alanine Aminotransferase 12 U/L (0-31); Albumin Level 4.3 g/dL (3.5-5.0); Alkaline Phosphatase 89 U/L (39-117); Anion Gap 14 (12-20); Aspartate Amino Transferase 16 U/L (5-31); Bilirubin Direct 0.2 mg/dL (0.0-0.5); Bilirubin Total 0.3 mg/dL (0.0-1.0); Blood Urea Nitrogen 11 mg/dL (9-16); C Reactive Protein 0.41 mg/dL (< or = 0.50); Carbon Dioxide 25 mmol/L (22-29); Chloride 110 mmol/L (96-108); Cholesterol 126 mg/dL (<200); Estimated Glomerular Filt Rate > 60; Glucose Random 103 mg/dL (60-115); HDL Cholesterol 45 mg/dL (>40); LDL Cholesterol Calculated 61 mg/dL (<100); Potassium 4.1 mmol/L (3.3-5.1); Sodium 145 mmol/L (135-145); Total Protein 7.2 g/dL (6.5-8.0); Triglycerides 100 mg/dL (<150)
== END 2023-01-30 14:01 | disposition home or self-care (01) ==
LOC: HO.HMGCLDS 14:00
PROVIDERS: Internal Medicine; PCP Internal Medicine; Visit Provider Internal Medicine
DX: R53.83 Other fatigue (principal); E78.5 Hyperlipidemia, unspecified; I25.10 Atherosclerotic heart disease of native coronary artery without angina pectoris
CPT/HCPCS: 36415; 80048; 80061; 80076; 85027; 86140

== ENCOUNTER 2023-02-22 12:13 | Outpatient (AMB) | payer MEDICARE, MEDICAID, SELFPAY ==
[2023-02-22 12:18] VITALS: BP 130/74; PULSE 84; O2SAT 97; BMI 26.4
--- NOTE | 2023-02-22 12:18 | MHC.PC.OV ---
Vital Signs 02/22/23 12:18 Height 5 ft 5 in Weight 158 lb 6 oz BMI 26.4 BP 130/74 Blood Pressure Location Rt brachial Position Sitting Pulse 84 Pulse Source Pulse Oximeter Pulse Oximetry (%) 97 Oxygen Delivery Method Room Air Intake Visit Reasons: one month fu Allergies cefazolin [From Anc] Allergy (Mild, Verified 01/30/23 14:00) Swelling Medication List - Last Reconciled 02/22/23 by Ciro White MD atorvastatin 80 mg PO QPM clopidogrel 75 mg PO DAILY oxycodone-acetaminophen 5-325 mg 1 tab PO TID PRN 30 days prochlorperazine maleate 5 mg PO BID PRN Tobacco use date assessed: 12/27/22 HPI one month fu HPI Details Patient came in today for her monthly pain medication refill visit for past 12 year had problem with her bladder, she had over active bladder [place] in [place] , she was fine for a while, and then recently it started acting up Patient says that she had numerous cystoscopies and tried several medications. For the past 2 weeks she is having urgency and frequency of urination UA done today shows 3+ blood, patient has not had her period in a while. I am treating her with Macrobid for 5 days b.i.d. she is to repeat urinalysis again after finishing the antibiotic Patient is back to her baseline now she had RSV infection few days ago Intercostal neuralgia: Patient is on Percocet 3 times a day, She is complying with the treatment plan no signs of abuse Patient is aware of side effects Patient does not want to do any interventional treatment at this time she tells me that she has already tried that MRI lumbar spine from 06/20/2022 showed L4-L5 moderate bilateral foraminal stenosis Drug contract up-to-date, next contract need to be renewed March Dr. Spangler is her seasonal recruiter Statin 80 mg and Plavix is through cardiology office Depression treatment through Psychiatry [facility] Medical History Obsessive compulsive disorder Agoraphobia Personality disorder Anxiety and depression 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) Surgical History Hx of dilation and curettage Hx of knee surgery Hx of tonsillectomy Family History Father Heart attack Hypertension Mother Hypertension Social History Household Members Other:: mom Housing: Condominium Alcohol intake: never Patient Tobacco Use Status: Former Tobacco user Tobacco use type: Cigarette Years Smoked: 32 years e-Cigarette/Vaping Use: Never Used Second Hand Smoke Exposure: No service: No Current occupational status: disabled Current occupational exposures/hazards: No Sexual orientation: Straight/Heterosexual Gender identity: Female Cognitive needs: No Hearing needs: No Vision needs: Yes Questionnaire Thrive Questionnaire Date Thrive assessed: 11/25/22 What is your living situation today?: I have a steady place to live Within the past 12 months, did the food you bought not last and you didn't have the money to get more?: Sometimes True Within the past 12 months, did you worry whether your food would run out before you got money to buy more?: Sometimes True AUDIT C Alcohol Use Questionnaire (AUDIT-C) 1. How often do you have a drink containing alcohol?: Never 3. How often do you have six or more drinks on one occasion?: Never Total Score: 0 FIFI-7 AMB Questionnaire FIFI-7 Date FIFI - 7 assessed: 11/25/22 Feeling nervous, anxious, or on edge: 3 = Nearly every day Not being able to stop or control worryin = Nearly every day Worrying too much about different things: 3 = Nearly every day Trouble relaxin = Nearly every day Being so restless that it is hard to sit still: 3 = Nearly every day Becoming easily annoyed or irritable: 3 = Nearly every day Feeling afraid as if something awful might happen: 3 = Nearly every day Total FIFI-7 score (0-4 normal; 5-9 mild; 10-14 moderate; 15-21 severe): 21 Source: Developed by Drs. Dallas Keller, Cassie Frankel, Glynn Blackwell and colleagues, with an educational kane from [employer]. Review of Systems Const Denies chills and Denies fever(s) ENT Denies epistaxis and Denies nasal discharge Card Denies chest pain Resp Denies chest congestion, Denies cough and Denies hemoptysis GI Denies diarrhea and Denies nausea Skin/Breast Denies rash Neuro Reports no additional complaints Psych Reports no additional complaints Endo Reports no additional complaints Physical exam (Primary Care) Vital Signs: Last Vital Signs Pulse 84 02/22/23 12:18 BP 130/74 02/22/23 12:18 Pulse Ox 97 02/22/23 12:18 Oxygen Delivery Method Room Air 02/22/23 12:18 BMI result Body Mass Index 26.4 Tobacco/Smoking Status: Tobacco use Status Tobacco use date assessed 12/27/22 02/22/23 12:21 Patient Tobacco Use Status Former Tobacco user 02/22/23 12:21 Tobacco use type Cigarette 02/22/23 12:21 e-Cigarette/Vaping Use Never Used 02/22/23 12:21 Thrive Assessment: Date of Thrive Assessment Date Thrive assessed 11/25/22 02/22/23 12:21 Const General: cooperative, comfortable and no acute distress Orientation/consciousness: patient oriented x3 HENMT Head: Yes normocephalic Eyes General: appearance normal, both eyes and all related structures Neck Neck: Yes supple Resp Effort & Inspection: normal respiratory effort, no cough and no stridor Cardio Rhythm: regular rhythm Heart sounds: S1 normal heart sound present and S2 normal heart sound present Skin General skin exam: turgor normal Neuro General: patient oriented x3, tone normal and moves all extremities Extrem Right lower extremity: no edema Left lower extremity: no edema Results AMB Urinalysis, Automated UA Leukoctes 0 Frederic/uL Last Edit by Ashlee Rider CMA on 02/22/23 12:31 UA Nitrite Negative Last Edit by Ashlee Rider CMA on 02/22/23 12:31 UA Urobilinogen 0.2 mg/dL Last Edit by Ashlee Rider CMA on 02/22/23 12:31 UA Protein 0 mg/dL Last Edit by Ashlee Rider CMA on 02/22/23 12:31 UA pH 6.0 Last Edit by Ashlee Rider CMA on 02/22/23 12:31 UA Blood 200 Jorge/uL Last Edit by Ashlee Rider CMA on 02/22/23 12:31 UA Specific [place] 1.025 Last Edit by Ashlee Rider CMA on 02/22/23 12:31 UA Ketone Negative Last Edit by Ashlee Rider CMA on 02/22/23 12:31 UA Bilirubin 0 mg/dL Last Edit by Ashlee Rider CMA on 02/22/23 12:31 UA Glucose 0 mg/dL Last Edit by Ashlee Rider CMA on 02/22/23 12:31 Results Reviewed Results Reviewed: Laboratory Last Values Urine pH (Auto) 6.0 02/22/23 12:30 Specific [place] (Auto) 1.025 02/22/23 12:30 Urine Protein (Auto) 0 mg/dL 02/22/23 12:30 Glucose (UA)(Auto) 0 mg/dL 02/22/23 12:30 Urine Ketones (Auto) Negative 02/22/23 12:30 Urine Blood (Auto) 200 Jorge/uL 02/22/23 12:30 Urine Nitrite (Auto) Negative 02/22/23 12:30 Urine Bilirubin (Auto) 0 mg/dL 02/22/23 12:30 Urine Urobilinogen (Auto) 0.2 mg/dL 02/22/23 12:30 Leukocyte Esterase (Auto) 0 Frederic/uL 02/22/23 12:30 Assessment and Plan Assessment & Plan (1) Acute cyclitis: Code(s): H20.00 - Unspecified acute and subacute iridocyclitis (2) Narcotic dependency, continuous: Code(s): F11.20 - Opioid dependence, uncomplicated (3) Intercostal neuralgia: Onset Date: Unknown Code(s): G58.8 - Other specified mononeuropathies (4) Lumbar foraminal stenosis: Code(s): M48.061 - Spinal stenosis, lumbar region without neurogenic claudication (5) Lumbar pain: Code(s): M54.50 - Low back pain, unspecified (6) Atherosclerotic cardiovascular disease: Code(s): I25.10 - Atherosclerotic heart disease of [place] coronary artery without angina pectoris (7) Major depression, recurrent: Code(s): F33.9 - Major depressive disorder, recurrent, unspecified Qualifiers: Active/Remission status: in partial remission Qualified Code(s): F33.41 - Major depressive disorder, recurrent, in partial remission Plan Patient came in today for her monthly pain medication refill visit for past 12 year had problem with her bladder, she had over active bladder [place]ist in [place] , she was fine for a while, and then recently it started acting up Patient says that she had numerous cystoscopies and tried several medications. For the past 2 weeks she is having urgency and frequency of urination UA done today shows 3+ blood, patient has not had her period in a while. I am treating her with Macrobid for 5 days b.i.d. she is to repeat urinalysis again after finishing the antibiotic Patient is back to her baseline now she had RSV infection few days ago Intercostal neuralgia: Patient is on Percocet 3 times a day, She is complying with the treatment plan no signs of abuse Patient is aware of side effects Patient does not want to do any interventional treatment at this time she tells me that she has already tried that MRI lumbar spine from 06/20/2022 showed L4-L5 moderate bilateral foraminal stenosis Drug contract up-to-date, next contract need to be renewed March Dr. Spangler is her seasonal recruiter Statin 80 mg and Plavix is through cardiology office Depression treatment through Psychiatry Orders: Orders UA CC w/rflx Micro + Cult Today H20.00 - Unspecified acute and subacute iridocyclitis AMB Urinalysis Automated Today Z13.9 - Encounter for screening, unspecified Urine Culture Today H20.00 - Unspecified acute and subacute iridocyclitis Medications: New nitrofurantoin monohyd/m-cryst 100 mg (Macrobid) must administer with a meal/food 100 mg PO Q12H 10 caps 0RF 5 days Refilled oxycodone-acetaminophen 5-325 mg Partial refill allowed 1 tab PO TID PRN 90 tabs 0RF severe pain (scale score 7-10) 30 days Coding Level of Care Code Est Pt Level 4 (74607) Diagnoses Acute cyclitis H20.00 Narcotic dependency, continuous F11.20 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 Lumbar foraminal stenosis M48.061 Lumbar pain M54.50 Atherosclerotic cardiovascular disease I25.10 Recurrent major depressive disorder, in partial remission F33.41 Active/Remission status: in partial remission
== END 2023-02-22 13:28 | disposition home or self-care (01) ==
PROVIDERS: PCP Internal Medicine; Visit Provider Internal Medicine
DX: H20.00 Unspecified acute and subacute iridocyclitis (principal); F11.20 Opioid dependence, uncomplicated; F33.41 Major depressive disorder, recurrent, in partial remission; G58.8 Other specified mononeuropathies; M48.061 Spinal stenosis, lumbar region without neurogenic claudication; M54.50 Low back pain, unspecified; I25.10 Atherosclerotic heart disease of native coronary artery without angina pectoris
CPT/HCPCS: 81003; 99214

== ENCOUNTER 2023-02-22 16:46 | Outpatient (REF) | payer MEDICARE, MEDICAID, SELFPAY | END 2023-02-22 16:47 | disposition home or self-care (01) | LOC: HO.HMGCLNP 16:46 | PROVIDERS: Visit Provider Internal Medicine | DX: Z13.89 Encounter for screening for other disorder (principal) ==

== ENCOUNTER 2023-03-28 09:28 | Outpatient (AMB) | payer MEDICARE, MEDICAID, SELFPAY ==
--- NOTE | 2023-03-28 09:39 | A.OFFPC_ITS ---
Vital Signs 03/28/23 09:41 Height 5 ft 5 in Intake Visit Reasons: 1 Month follow up Allergies cefazolin [From Anc] Allergy (Mild, Verified 03/28/23 09:40) Swelling Medication List - Last Reconciled 03/28/23 by Ciro White MD atorvastatin 80 mg PO QPM clopidogrel 75 mg PO DAILY oxycodone-acetaminophen 5-325 mg 1 tab PO TID PRN 30 days prochlorperazine maleate 5 mg PO BID PRN Tobacco use date assessed: 03/28/23 Dental Screening Dental Screen Date: 03/28/23 Did you have a dental visit in the last 12 months?: Yes Did you have a dental problem in the last 6 months where you did not have access to dental care?: No Was dental information given to patient?: Patient has dentist HPI 1 Month follow up HPI Details Patient is a 53-year-old female this is a telemedicine video conference Patient continued to have urgency and frequency of urination She had UA done in February which showed 3+ blood Patient says that she had this problem before as well and she has done all kind of testing by Urology And at and they told her that there is nothing much they can do for her, however she has been doing well 4 months after that Until recently she started with this problem, patient says that she has no control over her bladder anymore and she can just urinate without any warning She is wearing depends and changing them frequently I think it will be reasonable if patient be evaluated by Urology since she has been doing well until recently We can not rule out any new pathology without evaluation. She agrees Patient is also opiate dependent due to chronic intercostal neuralgia and lumbar pain PFSH Medical History Obsessive compulsive disorder Agoraphobia Personality disorder Anxiety and depression 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) Surgical History Hx of dilation and curettage Hx of knee surgery Hx of tonsillectomy Family History Father Heart attack Hypertension Mother Hypertension Social History Household Members Other:: mom Housing: Condominium Alcohol intake: never Patient Tobacco Use Status: Former Tobacco user Tobacco use type: Cigarette Years Smoked: 32 years e-Cigarette/Vaping Use: Never Used Second Hand Smoke Exposure: No service: No Current occupational status: disabled Current occupational exposures/hazards: No Sexual orientation: Straight/Heterosexual Gender identity: Female Cognitive needs: No Hearing needs: No Vision needs: Yes Questionnaire Thrive Questionnaire Date Thrive assessed: 11/25/22 AUDIT C Alcohol Use Questionnaire (AUDIT-C) 1. How often do you have a drink containing alcohol?: Never 3. How often do you have six or more drinks on one occasion?: Never Total Score: 0 Score Reviewed/Action Taken: Yes FIFI-7 AMB Questionnaire FIFI-7 Date FIFI - 7 assessed: 11/25/22 Source: Developed by Drs. Dallas Keller, Cassie Frankel, Glynn Blackwell and colleagues, with an educational kane from [employer]. Review of Systems Const Denies chills and Denies fever(s) ENT Denies epistaxis and Denies nasal discharge Card Denies chest pain Resp Denies chest congestion, Denies cough and Denies hemoptysis GI Denies diarrhea and Denies nausea Skin/Breast Denies rash Neuro Reports no additional complaints Psych Reports no additional complaints Endo Reports no additional complaints Physical exam (Primary Care) Tobacco/Smoking Status: Tobacco use Status Tobacco use date assessed 03/28/23 03/28/23 09:41 Patient Tobacco Use Status Former Tobacco user 03/28/23 09:39 Tobacco use type Cigarette 03/28/23 09:39 e-Cigarette/Vaping Use Never Used 03/28/23 09:39 Thrive Assessment: Date of Thrive Assessment Date Thrive assessed 11/25/22 03/28/23 09:39 Telehealth Telehealth Location of provider rendering services: practice address Patient Identification confirmed using: Name, : Yes Telehealth method: video Patient verbally consented to treatment: Yes Patient verbally consented to billing insurance company: Yes Patient informed of any privacy concerns related to visit: Yes Minutes spent on Phone/Video with Pt.: 14 Assessment and Plan Assessment & Plan (1) Urine incontinence: Code(s): R32 - Unspecified urinary incontinence Qualifiers: Urinary Incontinence type: mixed stress and urge incontinence Qualified Code(s): N39.46 - Mixed incontinence (2) Blood in urine: Code(s): R31.9 - Hematuria, unspecified Qualifiers: Hematuria type: other microscopic Qualified Code(s): R31.29 - Other microscopic hematuria (3) Narcotic dependency, continuous: Code(s): F11.20 - Opioid dependence, uncomplicated (4) Intercostal neuralgia: Onset Date: Unknown Code(s): G58.8 - Other specified mononeuropathies (5) Lumbar foraminal stenosis: Code(s): M48.061 - Spinal stenosis, lumbar region without neurogenic claudication (6) Lumbar pain: Code(s): M54.50 - Low back pain, unspecified Plan Patient is a 53-year-old female this is a telemedicine video conference Patient continued to have urgency and frequency of urination She had UA done in February which showed 3+ blood Patient says that she had this problem before as well and she has done all kind of testing by [facility]rology [facility] at and they told her that there is nothing much they can do for her, however she has been doing well 4 months after that Until recently she started with this problem, patient says that she has no control over her bladder anymore and she can just urinate without any warning She is wearing depends and changing them frequently I think it will be reasonable if patient be evaluated by Urology since she has been doing well until recently We can not rule out any new pathology without evaluation. She agrees Patient is also opiate dependent due to chronic intercostal neuralgia and lumbar pain Orders: Referrals Urology Referral R31.9 - Hematuria, unspecified, R32 - Unspecified urinary incontinence Medications: New solifenacin (Vesicare) 5 mg PO DAILY 30 tabs 0RF Urine incontinence Coding Level of Care Code Tele Est Pt Level 3 (92632) Diagnoses Mixed stress and urge urinary incontinence N39.46 Urinary Incontinence type: mixed stress and urge incontinence Other microscopic hematuria R31.29 Hematuria type: other microscopic Narcotic dependency, continuous F11.20 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 Lumbar foraminal stenosis M48.061 Lumbar pain M54.50
== END 2023-03-28 11:12 | disposition home or self-care (01) ==
PROVIDERS: PCP Internal Medicine; Visit Provider Internal Medicine
DX: N39.46 Mixed incontinence (principal); R31.29 Other microscopic hematuria; F11.20 Opioid dependence, uncomplicated; G58.8 Other specified mononeuropathies; M48.061 Spinal stenosis, lumbar region without neurogenic claudication; M54.50 Low back pain, unspecified
CPT/HCPCS: 99213

== ENCOUNTER 2023-04-20 08:44 | Outpatient (AMB) | payer MEDICARE, MEDICAID, SELFPAY ==
--- NOTE | 2023-04-20 08:42 | A.OFFPC_ITS ---
Vital Signs 04/20/23 08:43 Height 5 ft 5 in Intake Visit Reasons: 4wk f/u~ Allergies cefazolin [From [facility]] Allergy (Mild, Verified 04/20/23 08:42) Swelling Medication List - Last Reconciled 04/20/23 by Ciro White MD atorvastatin 80 mg PO QPM clopidogrel 75 mg PO DAILY oxycodone-acetaminophen 5-325 mg 1 tab PO TID PRN 30 days prochlorperazine maleate 5 mg PO BID PRN solifenacin (Vesicare) 5 mg PO DAILY Tobacco use date assessed: 04/20/23 Dental Screening Dental Screen Date: 04/20/23 Did you have a dental visit in the last 12 months?: Yes Did you have a dental problem in the last 6 months where you did not have access to dental care?: No Was dental information given to patient?: Patient has dentist HPI 4wk f/u~ HPI Details Patient is a 53-year-old female this is a telemedicine video conference Patient is feeling very depressed these days as her best friend is struggling with health issues She says that she still has not been able to set up with a therapist I have sent another message to our behavior health coordinator Patient does have psychiatrist who is located in [place], patient says that she has been seeing him for a while And when she moved here she continued to see him as her insurance company has not declined the payments She said that she is taking paroxetine, I asked her what does, patient went to look for it and realized that she has not been taking it. I would recommend to restart the medication and discuss it further with the psychiatrist Patient continued to have urgency and frequency of urination She was started on VESIcare which is helping during the day We talked about stopping all liquids for hours before bedtime as she is having more symptoms during the night Patient says that she had this problem before as well and she has done all kind of testing by Urology She suffered from similar symptoms before and then they resolved certainly Until recently she started with this problem again Referral to Urology was placed last visit Patient is also opiate dependent due to chronic intercostal neuralgia and lumbar pain She is complaining of having more pain and requesting to increase the dose of Percocet, which I am not able to. She is currently taking it 3 times a day. However I did offered her 2nd opinion by a different paint process engineer Patient says that she has already seen paint process engineer and there is nothing much they can do. [facility] Medical History Obsessive compulsive disorder Agoraphobia Personality disorder Anxiety and depression 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) Surgical History Hx of dilation and curettage Hx of knee surgery Hx of tonsillectomy Family History Father Heart attack Hypertension Mother Hypertension Social History Household Members Other:: mom Housing: Condominium Alcohol intake: never Patient Tobacco Use Status: Former Tobacco user Tobacco use type: Cigarette Years Smoked: 32 years e-Cigarette/Vaping Use: Never Used Second Hand Smoke Exposure: No service: No Current occupational status: disabled Current occupational exposures/hazards: No Sexual orientation: Straight/Heterosexual Gender identity: Female Cognitive needs: No Hearing needs: No Vision needs: Yes Questionnaire Thrive Questionnaire Date Thrive assessed: 11/25/22 AUDIT C Alcohol Use Questionnaire (AUDIT-C) 1. How often do you have a drink containing alcohol?: Never 3. How often do you have six or more drinks on one occasion?: Never Total Score: 0 Score Reviewed/Action Taken: Yes FIFI-7 AMB Questionnaire FIFI-7 Date FIFI - 7 assessed: 11/25/22 Source: Developed by Drs. Dallas Keller, Cassie Frankel, Glynn Blackwell and colleagues, with an educational kane from [employer]. Review of Systems Const Denies chills and Denies fever(s) ENT Denies epistaxis and Denies nasal discharge Resp Denies chest congestion, Denies cough and Denies hemoptysis GI Denies diarrhea and Denies nausea Skin/Breast Denies rash Neuro Reports no additional complaints Psych Reports no additional complaints Endo Reports no additional complaints Physical exam (Primary Care) Tobacco/Smoking Status: Tobacco use Status Tobacco use date assessed 04/20/23 04/20/23 08:43 Patient Tobacco Use Status Former Tobacco user 04/20/23 08:43 Tobacco use type Cigarette 04/20/23 08:43 e-Cigarette/Vaping Use Never Used 04/20/23 08:43 Thrive Assessment: Date of Thrive Assessment Date Thrive assessed 11/25/22 04/20/23 08:43 Telehealth Telehealth Location of provider rendering services: practice address Location of patient: address on file Patient Identification confirmed using: Name, : Yes Telehealth method: video Patient verbally consented to treatment: Yes Patient verbally consented to billing insurance company: Yes Patient informed of any privacy concerns related to visit: Yes Assessment and Plan Assessment & Plan (1) Intercostal neuralgia: Onset Date: Unknown Code(s): G58.8 - Other specified mononeuropathies (2) Urine incontinence: Code(s): R32 - Unspecified urinary incontinence Qualifiers: Urinary Incontinence type: mixed stress and urge incontinence Qualified Code(s): N39.46 - Mixed incontinence (3) Major depression, recurrent: Code(s): F33.9 - Major depressive disorder, recurrent, unspecified Qualifiers: Active/Remission status: in partial remission Qualified Code(s): F33.41 - Major depressive disorder, recurrent, in partial remission (4) Narcotic dependency, continuous: Code(s): F11.20 - Opioid dependence, uncomplicated (5) Lumbar foraminal stenosis: Code(s): M48.061 - Spinal stenosis, lumbar region without neurogenic claudication (6) Lumbar pain: Code(s): M54.50 - Low back pain, unspecified (7) Anxiety, generalized: Code(s): F41.1 - Generalized anxiety disorder (8) Chronic nausea: Code(s): R11.0 - Nausea Plan Patient is a 53-year-old female this is a telemedicine video conference Patient is feeling very depressed these days as her best friend is struggling with health issues She says that she still has not been able to set up with a therapist I have sent another message to our behavior health coordinator Patient does have psychiatrist who is located in [place], patient says that she has been seeing him for a while And when she moved here she continued to see him as her insurance company has not declined the payments She said that she is taking paroxetine, I asked her what does, patient went to look for it and realized that she has not been taking it. I would recommend to restart the medication and discuss it further with the psychiatrist Patient continued to have urgency and frequency of urination She was started on VESIcare which is helping during the day We talked about stopping all liquids for hours before bedtime as she is having more symptoms during the night Patient says that she had this problem before as well and she has done all kind of testing by Urology She suffered from similar symptoms before and then they resolved certainly Until recently she started with this problem again Referral to Urology was placed last visit Patient is also opiate dependent due to chronic intercostal neuralgia and lumbar pain She is complaining of having more pain and requesting to increase the dose of Percocet, which I am not able to. She is currently taking it 3 times a day. However I did offered her 2nd opinion by a different paint process engineer Patient says that she has already seen paint process engineer and there is nothing much they can do. Patient also have chronic nausea off and on and is taking prochlorperazine She feels it is because of Tylenol however I think it is because of oxycodone. She is taking medication once a day Medications: New paroxetine HCl 20 mg PO DAILY Refilled oxycodone-acetaminophen 5-325 mg Partial refill allowed 1 tab PO TID PRN 90 tabs 0RF severe pain (scale score 7-10) 30 days Coding Level of Care Code Tele Est Pt Level 4 (96454) Diagnoses 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 Mixed stress and urge urinary incontinence N39.46 Urinary Incontinence type: mixed stress and urge incontinence Recurrent major depressive disorder, in partial remission F33.41 Active/Remission status: in partial remission Narcotic dependency, continuous F11.20 Lumbar foraminal stenosis M48.061 Lumbar pain M54.50 Anxiety, generalized F41.1 Chronic nausea R11.0 Time Spent (min) 30 Comment 5 pre visit, 18 with patient, 7 minute charting coordination of care
== END 2023-04-20 09:46 | disposition home or self-care (01) ==
LOC: HO.HMGC 08:45
PROVIDERS: PCP Internal Medicine; Visit Provider Internal Medicine
DX: G58.8 Other specified mononeuropathies (principal); F33.41 Major depressive disorder, recurrent, in partial remission; F11.20 Opioid dependence, uncomplicated; N39.46 Mixed incontinence; M48.061 Spinal stenosis, lumbar region without neurogenic claudication; M54.50 Low back pain, unspecified; F41.1 Generalized anxiety disorder; R11.0 Nausea
CPT/HCPCS: 99214

== ENCOUNTER 2023-05-17 13:25 | Outpatient (AMB) | payer MEDICARE, MEDICAID, SELFPAY ==
--- NOTE | 2023-05-17 13:26 | A.OFFPC_ITS ---
Intake Visit Reasons: 4 Wk Follow Up~ Allergies cefazolin [From Anc] Allergy (Mild, Verified 05/17/23 13:26) Swelling Medication List - Last Reconciled 05/17/23 by Ciro White MD atorvastatin 80 mg PO QPM clopidogrel 75 mg PO DAILY oxycodone-acetaminophen 5-325 mg 1 tab PO TID PRN 30 days paroxetine HCl 20 mg PO DAILY prochlorperazine maleate 5 mg PO BID PRN solifenacin (Vesicare) 5 mg PO DAILY Tobacco use date assessed: 05/17/23 Dental Screening Dental Screen Date: 05/17/23 Did you have a dental visit in the last 12 months?: No Did you have a dental problem in the last 6 months where you did not have access to dental care?: No Was dental information given to patient?: Patient has dentist HPI 4 Wk Follow Up~ 2 HPI Details Patient is a 53-year-old female this is a telemedicine video conference Depression is better patient have restarted paroxetine she will be starting therapy soon Patient continued to have urgency and frequency of urination VESIcare is helping off and on, I am increasing the dose to 10 mg, I would encourage patient to have an establish care visit with local urologist even though she had all the workup done in the past Patient is also opiate dependent due to chronic intercostal neuralgia and lumbar pain Currently having lumbar pain flare-up, she is asking to change Percocet to oxycodone as it is difficult for her to swallow large pills Oxycodone 5 mg t.i.d. for 30 days sent, number 90 tablets Patient also have chronic nausea off and on and is taking prochlorperazine She feels it is because of Tylenol however I think it is because of oxycodone. She is taking medication once a day Follow-up 4 weeks medication refill [facility] Medical History Obsessive compulsive disorder Agoraphobia Personality disorder Anxiety and depression 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) Surgical History Hx of dilation and curettage Hx of knee surgery Hx of tonsillectomy Family History Father Heart attack Hypertension Mother Hypertension Social History Household Members Other:: mom Housing: Condominium Alcohol intake: never Patient Tobacco Use Status: Former Tobacco user Tobacco use type: Cigarette Years Smoked: 32 years e-Cigarette/Vaping Use: Never Used Second Hand Smoke Exposure: No service: No Current occupational status: disabled Current occupational exposures/hazards: No Sexual orientation: Straight/Heterosexual Gender identity: Female Cognitive needs: No Hearing needs: No Vision needs: Yes Questionnaire Thrive Questionnaire Date Thrive assessed: 11/25/22 AUDIT C Alcohol Use Questionnaire (AUDIT-C) 1. How often do you have a drink containing alcohol?: Never 3. How often do you have six or more drinks on one occasion?: Never Total Score: 0 Score Reviewed/Action Taken: Yes FIFI-7 AMB Questionnaire FIFI-7 Date FIFI - 7 assessed: 11/25/22 Source: Developed by Drs. Dallas Keller, Cassie Frankel, Glynn Blackwell and colleagues, with an educational kane from [employer]. Review of Systems Const Denies chills and Denies fever(s) ENT Denies epistaxis and Denies nasal discharge Resp Denies chest congestion, Denies cough and Denies hemoptysis GI Denies diarrhea Skin/Breast Denies rash Neuro Reports no additional complaints Psych Reports no additional complaints Endo Reports no additional complaints Physical exam (Primary Care) Tobacco/Smoking Status: Tobacco use Status Tobacco use date assessed 05/17/23 05/17/23 13:27 Patient Tobacco Use Status Former Tobacco user 05/17/23 13:27 Tobacco use type Cigarette 05/17/23 13:27 e-Cigarette/Vaping Use Never Used 05/17/23 13:27 Thrive Assessment: Date of Thrive Assessment Date Thrive assessed 11/25/22 05/17/23 13:27 Telehealth Telehealth Location of provider rendering services: practice address Location of patient: address on file Patient Identification confirmed using: Name, : Yes Telehealth method: video Patient verbally consented to treatment: Yes Patient verbally consented to billing insurance company: Yes Patient informed of any privacy concerns related to visit: Yes Minutes spent on Phone/Video with Pt.: 14 Assessment and Plan Assessment & Plan (1) Intercostal neuralgia: Onset Date: Unknown Code(s): G58.8 - Other specified mononeuropathies (2) Urine incontinence: Code(s): R32 - Unspecified urinary incontinence Qualifiers: Urinary Incontinence type: mixed stress and urge incontinence Qualified Code(s): N39.46 - Mixed incontinence (3) Major depression, recurrent: Code(s): F33.9 - Major depressive disorder, recurrent, unspecified Qualifiers: Active/Remission status: in partial remission Qualified Code(s): F33.41 - Major depressive disorder, recurrent, in partial remission (4) Narcotic dependency, continuous: Code(s): F11.20 - Opioid dependence, uncomplicated (5) Lumbar foraminal stenosis: Code(s): M48.061 - Spinal stenosis, lumbar region without neurogenic claudication (6) Lumbar pain: Code(s): M54.50 - Low back pain, unspecified (7) Anxiety, generalized: Code(s): F41.1 - Generalized anxiety disorder (8) Chronic nausea: Code(s): R11.0 - Nausea Plan Patient is a 53-year-old female this is a telemedicine video conference Depression is better patient have restarted paroxetine she will be starting therapy soon Patient continued to have urgency and frequency of urination VESIcare is helping off and on, I am increasing the dose to 10 mg, I would encourage patient to have an establish care visit with local urologist even though she had all the workup done in the past Patient is also opiate dependent due to chronic intercostal neuralgia and lumbar pain Currently having lumbar pain flare-up, she is asking to change Percocet to oxycodone as it is difficult for her to swallow large pills Oxycodone 5 mg t.i.d. for 30 days sent, number 90 tablets Patient also have chronic nausea off and on and is taking prochlorperazine She feels it is because of Tylenol however I think it is because of oxycodone. She is taking medication once a day Follow-up 4 weeks medication refill Medications: New oxycodone Partial Fill upon patient request. 5 mg PO Q8H PRN 90 tabs 0RF pain 30 days Changed From solifenacin (Vesicare) 5 mg PO DAILY 30 tabs 0RF Urine incontinence To solifenacin 10 mg PO DAILY 90 tabs 0RF Urine incontinence 90 days Discontinued oxycodone-acetaminophen 5-325 mg Partial refill allowed Discontinued Reason: Doctor's Order 1 tab PO TID 30 days PRN 90 tabs 0RF severe pain (scale score 7-10) Coding Level of Care Code Tele Est Pt Level 3 (81610) Diagnoses 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 Mixed stress and urge urinary incontinence N39.46 Urinary Incontinence type: mixed stress and urge incontinence Recurrent major depressive disorder, in partial remission F33.41 Active/Remission status: in partial remission Narcotic dependency, continuous F11.20 Lumbar foraminal stenosis M48.061 Lumbar pain M54.50 Anxiety, generalized F41.1 Chronic nausea R11.0
== END 2023-05-17 17:12 | disposition home or self-care (01) ==
LOC: HO.HMGC 13:25
PROVIDERS: PCP Internal Medicine; Visit Provider Internal Medicine
DX: N39.46 Mixed incontinence (principal); F33.41 Major depressive disorder, recurrent, in partial remission; F11.20 Opioid dependence, uncomplicated; G58.8 Other specified mononeuropathies; M48.061 Spinal stenosis, lumbar region without neurogenic claudication; M54.50 Low back pain, unspecified; F41.1 Generalized anxiety disorder; R11.0 Nausea
CPT/HCPCS: 99213

== ENCOUNTER 2023-06-14 12:04 | Outpatient (AMB) | payer MEDICARE, MEDICAID, SELFPAY ==
--- NOTE | 2023-06-14 12:11 | MHC.PC.OV ---
Vital Signs 06/14/23 12:12 Height 5 ft 5 in Weight 141 lb BMI 23.5 BP 126/70 Blood Pressure Location Rt brachial Position Sitting Pulse 72 Pulse Source Pulse Oximeter Pulse Oximetry (%) 98 Oxygen Delivery Method Room Air Intake Visit Reasons: F/U 4 week Allergies cefazolin [From Anc] Allergy (Mild, Verified 06/14/23 12:12) Swelling Medication List - Last Reconciled 06/14/23 by Ciro White MD atorvastatin 40 mg PO QPM clopidogrel 75 mg PO DAILY oxycodone 5 mg PO Q8H PRN 30 days paroxetine HCl 40 mg PO DAILY prochlorperazine maleate 5 mg PO BID PRN solifenacin 10 mg PO DAILY 90 days Tobacco use date assessed: 05/17/23 Dental Screening Dental Screen Date: 05/17/23 HPI F/U 4 week HPI Details Patient is a 53-year-old female Patient has been losing weight, however BMI is within normal range at 23.5 now She suffers from chronic nausea off and on and take medication for that Depression is better patient have restarted paroxetine, she has started seeing therapist once a week Patient continued to have urgency and frequency of urination VESIcare 10 mg is helping off and on Patient is also opiate dependent due to chronic intercostal neuralgia and lumbar pain Currently having lumbar pain flare-up, she is asking to change Percocet to oxycodone as it is difficult for her to swallow large pills Oxycodone 5 mg t.i.d. for 30 days sent, number 90 tablets Due for pain contract renewal She has coronary artery disease, has to make appointment for follow-up with the supervisor [employer], reminded patient Follow-up 4 weeks [facility] Medical History Obsessive compulsive disorder Agoraphobia Personality disorder Anxiety and depression 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) Surgical History Hx of dilation and curettage Hx of knee surgery Hx of tonsillectomy Family History Father Heart attack Hypertension Mother Hypertension Social History Household Members Other:: mom Housing: Condominium Alcohol intake: never Patient Tobacco Use Status: Former Tobacco user Tobacco use type: Cigarette Years Smoked: 32 years e-Cigarette/Vaping Use: Never Used Second Hand Smoke Exposure: No service: No Current occupational status: disabled Current occupational exposures/hazards: No Sexual orientation: Straight/Heterosexual Gender identity: Female Cognitive needs: No Hearing needs: No Vision needs: Yes Questionnaire Thrive Questionnaire Date Thrive assessed: 11/25/22 FIFI-7 AMB Questionnaire FIFI-7 Date FIFI - 7 assessed: 11/25/22 Source: Developed by Drs. Dallas Keller, Cassie Frankel, Glynn Blackwell and colleagues, with an educational kane from [employer]. Review of Systems Const Denies chills and Denies fever(s) ENT Denies epistaxis and Denies nasal discharge Resp Denies chest congestion, Denies cough and Denies hemoptysis GI Denies diarrhea and Denies nausea Skin/Breast Denies rash Neuro Reports no additional complaints Psych Reports no additional complaints Endo Reports no additional complaints Physical exam (Primary Care) Vital Signs: Last Vital Signs Pulse 72 06/14/23 12:12 BP 126/70 06/14/23 12:12 Pulse Ox 98 06/14/23 12:12 Oxygen Delivery Method Room Air 06/14/23 12:12 BMI result Body Mass Index 23.5 Tobacco/Smoking Status: Tobacco use Status Tobacco use date assessed 05/17/23 06/14/23 12:15 Patient Tobacco Use Status Former Tobacco user 06/14/23 12:15 Tobacco use type Cigarette 06/14/23 12:15 e-Cigarette/Vaping Use Never Used 06/14/23 12:15 Thrive Assessment: Date of Thrive Assessment Date Thrive assessed 11/25/22 06/14/23 12:15 Const General: cooperative, comfortable and no acute distress Orientation/consciousness: patient oriented x3 HENMT Head: Yes normocephalic Eyes General: appearance normal, both eyes and all related structures Neck Neck: Yes supple Resp Effort & Inspection: normal respiratory effort, no cough and no stridor Cardio Rhythm: regular rhythm Heart sounds: S1 normal heart sound present and S2 normal heart sound present Skin General skin exam: turgor normal Neuro General: patient oriented x3, tone normal and moves all extremities Extrem Right lower extremity: no edema Left lower extremity: no edema Assessment and Plan Assessment & Plan (1) Costal chondritis: Code(s): M94.0 - Chondrocostal junction syndrome [Tietze] (2) Lumbar radiculitis: Code(s): M54.16 - Radiculopathy, lumbar region (3) Major depression, recurrent: Code(s): F33.9 - Major depressive disorder, recurrent, unspecified Qualifiers: Active/Remission status: in partial remission Qualified Code(s): F33.41 - Major depressive disorder, recurrent, in partial remission (4) Anxiety, generalized: Code(s): F41.1 - Generalized anxiety disorder (5) Impaired fasting blood sugar: Code(s): R73.01 - Impaired fasting glucose (6) Coronary artery disease: Code(s): I25.10 - Atherosclerotic heart disease of [place] coronary artery without angina pectoris Qualifiers: Associated angina: without angina Coronary Disease-Associated Artery/Lesion type: [place] artery [place] vs. transplanted heart: [place] heart Qualified Code(s): I25.10 - Atherosclerotic heart disease of [place] coronary artery without angina pectoris (7) Lumbar foraminal stenosis: Code(s): M48.061 - Spinal stenosis, lumbar region without neurogenic claudication (8) Lipid disorder: Code(s): E78.9 - Disorder of lipoprotein metabolism, unspecified (9) Intercostal neuralgia: Onset Date: Unknown Code(s): G58.8 - Other specified mononeuropathies (10) Narcotic dependency, continuous: Code(s): F11.20 - Opioid dependence, uncomplicated (11) Urine incontinence: Code(s): R32 - Unspecified urinary incontinence Qualifiers: Urinary Incontinence type: mixed stress and urge incontinence Qualified Code(s): N39.46 - Mixed incontinence (12) Lumbar pain: Code(s): M54.50 - Low back pain, unspecified (13) Chronic nausea: Code(s): R11.0 - Nausea (14) Pain management contract agreement: Code(s): Z02.89 - Encounter for other administrative examinations Plan Patient is a 53-year-old female Patient has been losing weight, however BMI is within normal range at 23.5 now She suffers from chronic nausea off and on and take medication for that Depression is better patient have restarted paroxetine, she has started seeing therapist once a week Patient continued to have urgency and frequency of urination VESIcare 10 mg is helping off and on Patient is also opiate dependent due to chronic intercostal neuralgia and lumbar pain Currently having lumbar pain flare-up, she is asking to change Percocet to oxycodone as it is difficult for her to swallow large pills Oxycodone 5 mg t.i.d. for 30 days sent, number 90 tablets Due for pain contract renewal She has coronary artery disease, has to make appointment for follow-up with the supervisor [employer], reminded patient Follow-up 4 weeks Orders: Orders Complete Blood Count Auto Diff Today Ciro Whtie MD E78.9 - Disorder of lipoprotein metabolism, unspecified, F11.20 - Opioid dependence, uncomplicated, F33.41 - Major depressive disorder, recurrent, in partial remission, F41.1 - Generalized anxiety disorder, G58.8 - Other specified mononeuropathies, I25.10 - Atherosclerotic heart disease of [place] coronary artery without angina pectoris, M48.061 - Spinal stenosis, lumbar region without neurogenic claudication, M54.16 - Radiculopathy, lumbar region, M94.0 - Chondrocostal junction syndrome [[place]], R73.01 - Impaired fasting glucose Drug Screen Urine Today Ciro White MD F11.20 - Opioid dependence, uncomplicated Comprehensive Met. Panel Today Ciro White MD E78.9 - Disorder of lipoprotein metabolism, unspecified, F11.20 - Opioid dependence, uncomplicated, F33.41 - Major depressive disorder, recurrent, in partial remission, F41.1 - Generalized anxiety disorder, G58.8 - Other specified mononeuropathies, I25.10 - Atherosclerotic heart disease of [place] coronary artery without angina pectoris, M48.061 - Spinal stenosis, lumbar region without neurogenic claudication, M54.16 - Radiculopathy, lumbar region, M94.0 - Chondrocostal junction syndrome [[place]], R73.01 - Impaired fasting glucose Opiates GCMS Expanded, Ur Today Ciro White MD F11.20 - Opioid dependence, uncomplicated Medications: Changed From atorvastatin 80 mg PO QPM 90 tabs 3RF To atorvastatin 40 mg PO QPM Butch Bruno MD Refilled oxycodone Partial Fill upon patient request. 5 mg PO Q8H PRN 90 tabs 0RF pain 30 days Ciro White MD Coding Level of Care Code Est Pt Level 4 (11669) Complex EM visit Add On G2211 Diagnoses Costal chondritis M94.0 Lumbar radiculitis M54.16 Recurrent major depressive disorder, in partial remission F33.41 Active/Remission status: in partial remission Anxiety, generalized F41.1 Impaired fasting blood sugar R73.01 Coronary artery disease involving [place] coronary artery of [place] heart without angina pectoris I25.10 Associated angina: without angina Coronary Disease-Associated Artery/Lesion type: [place] artery [place] vs. transplanted heart: [place] heart Lumbar foraminal stenosis M48.061 Lipid disorder E78.9 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 Narcotic dependency, continuous F11.20 Mixed stress and urge urinary incontinence N39.46 Urinary Incontinence type: mixed stress and urge incontinence Lumbar pain M54.50 Chronic nausea R11.0 Pain management contract agreement [email or web address]
[2023-06-14 12:12] VITALS: BP 126/70; PULSE 72; O2SAT 98; BMI 23.5
== END 2023-06-14 13:32 | disposition home or self-care (01) ==
PROVIDERS: PCP Internal Medicine; Visit Provider Internal Medicine
DX: M94.0 Chondrocostal junction syndrome [Tietze] (principal); M54.16 Radiculopathy, lumbar region; F33.41 Major depressive disorder, recurrent, in partial remission; F41.1 Generalized anxiety disorder; R73.01 Impaired fasting glucose; I25.10 Atherosclerotic heart disease of native coronary artery without angina pectoris; M48.061 Spinal stenosis, lumbar region without neurogenic claudication; E78.9 Disorder of lipoprotein metabolism, unspecified; G58.8 Other specified mononeuropathies; F11.20 Opioid dependence, uncomplicated; N39.46 Mixed incontinence; M54.50 Low back pain, unspecified
CPT/HCPCS: 99214; G2211

== ENCOUNTER 2023-06-14 12:29 | Outpatient (REF) | payer MEDICARE, MEDICAID, SELFPAY ==
[2023-06-14 16:09] LABS: MANUAL DIFF FLAG NO
[2023-06-14 16:21] LABS: Basophils Absolute Auto 0.1 X10*3/uL (0.0-0.2); Basophils Percent Auto 0.9 % (0-2); Eosinophils Absolute Auto 0.1 X10*3/uL (0.0-0.4); Eosinophils Percent Auto 1.1 % (0-4); Hematocrit 42.3 % (37.0-47.0); Hemoglobin 14.4 g/dl (12.0-16.0); Imm Gran Abs Auto 0.01 X10*3/uL (0.00-0.03); Imm Gran Pct Auto 0.2 % (0.0-0.4); Lymphocytes Absolute Auto 2.4 X10*3/uL (1.2-4.9); Lymphocytes Percent Auto 37.3 % (20-40); Mean Corpuscular Hemoglobin 31.9 pg (27.0-33.0); Mean Corpuscular Volume 93.8 fL (80.0-98.0); Mean Platelet Volume 11.5 fL (9.4-12.3); Monocytes Absolute Auto 0.4 X10*3/uL (0.1-1.2); Neutrophils Absolute Auto 3.5 x10*3/uL (2.0-8.3); Neutrophils Percent Auto 54.5 % (45-73); Platelet Count 251 X10*3/uL (160-400); Red Blood Count 4.51 X10*6/uL (4.20-5.50); Red Cell Distribution Width 14.4 % (11.0-16.0); White Blood Count 6.5 X10*3/uL (4.8-10.8)
[2023-06-14 16:55] LABS: Alanine Aminotransferase 9 U/L (0-31); Alkaline Phosphatase 83 U/L (39-117); Anion Gap 15 (12-20); Aspartate Amino Transferase 14 U/L (5-31); Bilirubin Total 0.5 mg/dL (0.0-1.0); Blood Urea Nitrogen 5 mg/dL (9-16); Calcium 9.3 mg/dL (8.4-10.2); Carbon Dioxide 26 mmol/L (22-29); Chloride 109 mmol/L (96-108); Estimated Glomerular Filt Rate > 60; Glucose Random 95 mg/dL (60-115); Potassium 3.7 mmol/L (3.3-5.1); Sodium 146 mmol/L (135-145); Total Protein 6.6 g/dL (6.5-8.0)
[2023-06-14 17:01] LABS: Amphetamine Screen Urine Not Detected (Not Detect); Barbiturates, Urine Not Detected (Not Detect); Benzodiazepines Screen Urine Not Detected (Not Detect); Buprenorphine Scr Not Detected (Not Detect); Cannabinoid Screen Urine Not Detected (Not Detect); Cocaine Screen Urine Not Detected (Not Detect); Fentanyl, urine Not Detected (Not Detect); Methadone Screen, Urine Not Detected (Not Detect); Opiate Screen Urine POSITIVE (Not Detect); Oxycodone Screen Urine Positive (Not Detect); Phencyclidine Screen Urine Not Detected (Not Detect)
[2023-06-16 15:22] LABS: Codeine, Ur NEGATIVE; Hydrocodone, Ur NEGATIVE; Hydromorphone, Ur NEGATIVE; Morphine, Ur NEGATIVE; Norhydrocodone, Ur NEGATIVE
== END 2023-06-14 12:30 | disposition home or self-care (01) ==
LOC: HO.HMGCLDS 12:29
PROVIDERS: PCP Internal Medicine; Visit Provider Internal Medicine
DX: M94.0 Chondrocostal junction syndrome [Tietze] (principal); M54.16 Radiculopathy, lumbar region; F33.41 Major depressive disorder, recurrent, in partial remission; F41.1 Generalized anxiety disorder; R73.01 Impaired fasting glucose; I25.10 Atherosclerotic heart disease of native coronary artery without angina pectoris; M48.061 Spinal stenosis, lumbar region without neurogenic claudication; E78.9 Disorder of lipoprotein metabolism, unspecified; F11.20 Opioid dependence, uncomplicated
CPT/HCPCS: 80053; 80307; 80365; 85025; G0480

== ENCOUNTER 2023-07-12 13:32 | Outpatient (AMB) | payer MEDICARE, MEDICAID, SELFPAY ==
[2023-07-12 13:35] VITALS: BP 124/68; PULSE 81; O2SAT 97; BMI 23.5
--- NOTE | 2023-07-12 13:35 | MHC.PC.OV ---
Vital Signs 07/12/23 13:35 Height 5 ft 4 in Weight 137 lb 1 oz BMI 23.5 BP 124/68 Blood Pressure Location Rt brachial Position Sitting Pulse 81 Pulse Source Pulse Oximeter Pulse Oximetry (%) 97 Oxygen Delivery Method Room Air Intake Visit Reasons: Meds Visit Allergies cefazolin [From Anc] Allergy (Mild, Verified 07/12/23 13:37) Swelling Medication List - Last Reconciled 07/12/23 by Ciro White MD atorvastatin 40 mg PO QPM clopidogrel 75 mg PO DAILY oxycodone 5 mg PO Q8H PRN 30 days paroxetine HCl 40 mg PO DAILY prochlorperazine maleate 5 mg PO BID PRN solifenacin 10 mg PO DAILY 90 days Tobacco use date assessed: 07/12/23 Dental Screening Dental Screen Date: 07/12/23 Did you have a dental visit in the last 12 months?: Yes Did you have a dental problem in the last 6 months where you did not have access to dental care?: No Was dental information given to patient?: Patient has dentist HPI Meds Visit HPI Details Patient is a 53-year-old female Complaining of cramping in her hands and difficulty sleeping some nights and then some nights she can sleep for extended number of hours Patient is also questioning restless legs syndrome, I have placed a referral for her to be evaluated by Neurology/sleep specialist Patient has been losing weight, BMI is stable She also admits to not drinking enough water Recent labs shows sodium 145 we discussed that in detail She suffers from chronic nausea off and on and take medication for that Depression is better patient have restarted paroxetine, she has started seeing therapist once a week Medication is being filled by psychiatrist in [place] Patient continued to have urgency and frequency of urination VESIcare 10 mg is helping off and on Patient is also opiate dependent due to chronic intercostal neuralgia and lumbar pain Currently having lumbar pain flare-up, she is asking to change Percocet to oxycodone as it is difficult for her to swallow large pills Oxycodone 5 mg t.i.d. for 30 days sent, number 90 tablets She has coronary artery disease, has to make appointment for follow-up with the labor contractor, reminded patient Follow-up 4 weeks [facility] Medical History Obsessive compulsive disorder Agoraphobia Personality disorder Anxiety and depression 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) Surgical History Hx of dilation and curettage Hx of knee surgery Hx of tonsillectomy Family History Father Heart attack Hypertension Mother Hypertension Social History Household Members Other:: mom Housing: Condominium Alcohol intake: never Patient Tobacco Use Status: Former Tobacco user Tobacco use type: Cigarette Years Smoked: 32 years e-Cigarette/Vaping Use: Never Used Second Hand Smoke Exposure: No service: No Current occupational status: disabled Current occupational exposures/hazards: No Sexual orientation: Straight/Heterosexual Gender identity: Female Cognitive needs: No Hearing needs: No Vision needs: Yes Questionnaire Thrive Questionnaire Date Thrive assessed: 11/25/22 AUDIT C Alcohol Use Questionnaire (AUDIT-C) 1. How often do you have a drink containing alcohol?: Never 3. How often do you have six or more drinks on one occasion?: Never Total Score: 0 Score Reviewed/Action Taken: Yes FIFI-7 AMB Questionnaire FIFI-7 Date FIFI - 7 assessed: 11/25/22 Source: Developed by Drs. Dallas Keller, Cassie Frankel, Glynn Blackwell and colleagues, with an educational kane from [employer]. Review of Systems Const Denies chills and Denies fever(s) ENT Denies epistaxis and Denies nasal discharge Card Denies chest pain Resp Denies chest congestion, Denies cough and Denies hemoptysis GI Denies diarrhea and Denies nausea Skin/Breast Denies rash Neuro Reports no additional complaints Psych Reports no additional complaints Endo Reports no additional complaints Physical exam (Primary Care) Vital Signs: Last Vital Signs Pulse 81 07/12/23 13:35 BP 124/68 07/12/23 13:35 Pulse Ox 97 07/12/23 13:35 Oxygen Delivery Method Room Air 07/12/23 13:35 BMI result Body Mass Index 23.5 Tobacco/Smoking Status: Tobacco use Status Tobacco use date assessed 07/12/23 07/12/23 13:38 Patient Tobacco Use Status Former Tobacco user 07/12/23 13:38 Tobacco use type Cigarette 05/29/24 13:38 e-Cigarette/Vaping Use Never Used 07/12/23 13:38 Thrive Assessment: Date of Thrive Assessment Date Thrive assessed 11/25/22 07/12/23 13:38 Const General: cooperative, comfortable and no acute distress Orientation/consciousness: patient oriented x3 HENMT Head: Yes normocephalic Eyes General: appearance normal, both eyes and all related structures Neck Neck: Yes supple Resp Effort & Inspection: normal respiratory effort, no cough and no stridor Cardio Rhythm: regular rhythm Heart sounds: S1 normal heart sound present and S2 normal heart sound present Skin General skin exam: turgor normal Neuro General: patient oriented x3, tone normal and moves all extremities Extrem Right lower extremity: no edema Left lower extremity: no edema Assessment and Plan Assessment & Plan (1) Sleep disorder: Code(s): G47.9 - Sleep disorder, unspecified (2) Restless legs syndrome: Code(s): G25.81 - Restless legs syndrome (3) Costal chondritis: Code(s): M94.0 - Chondrocostal junction syndrome [Tietze] (4) Lumbar radiculitis: Code(s): M54.16 - Radiculopathy, lumbar region (5) Major depression, recurrent: Code(s): F33.9 - Major depressive disorder, recurrent, unspecified Qualifiers: Active/Remission status: in partial remission Qualified Code(s): F33.41 - Major depressive disorder, recurrent, in partial remission (6) Anxiety, generalized: Code(s): F41.1 - Generalized anxiety disorder (7) Impaired fasting blood sugar: Code(s): R73.01 - Impaired fasting glucose (8) Coronary artery disease: Code(s): I25.10 - Atherosclerotic heart disease of [place] coronary artery without angina pectoris Qualifiers: Coronary Disease-Associated Artery/Lesion type: [place] artery [place] vs. transplanted heart: [place] heart Associated angina: without angina Qualified Code(s): I25.10 - Atherosclerotic heart disease of [place] coronary artery without angina pectoris (9) Lumbar foraminal stenosis: Code(s): M48.061 - Spinal stenosis, lumbar region without neurogenic claudication (10) Lipid disorder: Code(s): E78.9 - Disorder of lipoprotein metabolism, unspecified (11) Intercostal neuralgia: Onset Date: Unknown Code(s): G58.8 - Other specified mononeuropathies (12) Narcotic dependency, continuous: Code(s): F11.20 - Opioid dependence, uncomplicated (13) Urine incontinence: Code(s): R32 - Unspecified urinary incontinence Qualifiers: Urinary Incontinence type: mixed stress and urge incontinence Qualified Code(s): N39.46 - Mixed incontinence (14) Lumbar pain: Code(s): M54.50 - Low back pain, unspecified (15) Chronic nausea: Code(s): R11.0 - Nausea (16) Pain management contract agreement: Code(s): Z02.89 - Encounter for other administrative examinations Plan Patient is a 53-year-old female Complaining of cramping in her hands and difficulty sleeping some nights and then some nights she can sleep for extended number of hours Patient is also questioning restless legs syndrome, I have placed a referral for her to be evaluated by Neurology/sleep specialist Patient has been losing weight, BMI is stable She also admits to not drinking enough water Recent labs shows sodium 145 we discussed that in detail She suffers from chronic nausea off and on and take medication for that Depression is better patient have restarted paroxetine, she has started seeing therapist once a week Medication is being filled by psychiatrist in [place] Patient continued to have urgency and frequency of urination VESIcare 10 mg is helping off and on Patient is also opiate dependent due to chronic intercostal neuralgia and lumbar pain Currently having lumbar pain flare-up, she is asking to change Percocet to oxycodone as it is difficult for her to swallow large pills Oxycodone 5 mg t.i.d. for 30 days sent, number 90 tablets She has coronary artery disease, has to make appointment for follow-up with the labor contractor, reminded patient Follow-up 4 weeks Orders: Referrals Neurology Referral G25.81 - Restless legs syndrome, G47.9 - Sleep disorder, unspecified Medications: New omeprazole 20 mg PO DAILY 90 caps 0RF Refilled oxycodone Partial Fill upon patient request. 5 mg PO Q8H 30 days PRN 90 tabs 0RF pain Coding Level of Care Code Est Pt Level 4 (46619) Complex EM visit Add On G2211 Diagnoses Sleep disorder G47.9 Restless legs syndrome G25.81 Costal chondritis M94.0 Lumbar radiculitis M54.16 Recurrent major depressive disorder, in partial remission F33.41 Active/Remission status: in partial remission Anxiety, generalized F41.1 Impaired fasting blood sugar R73.01 Coronary artery disease involving [place] coronary artery of [place] heart without angina pectoris I25.10 Coronary Disease-Associated Artery/Lesion type: [place] artery [place] vs. transplanted heart: [place] heart Associated angina: without angina Lumbar foraminal stenosis M48.061 Lipid disorder E78.9 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 Narcotic dependency, continuous F11.20 Mixed stress and urge urinary incontinence N39.46 Urinary Incontinence type: mixed stress and urge incontinence Lumbar pain M54.50 Chronic nausea R11.0 Pain management contract agreement [email or web address]
== END 2023-07-12 14:47 | disposition home or self-care (01) ==
PROVIDERS: PCP Internal Medicine; Visit Provider Internal Medicine
DX: G47.9 Sleep disorder, unspecified (principal); G25.81 Restless legs syndrome; M94.0 Chondrocostal junction syndrome [Tietze]; M54.16 Radiculopathy, lumbar region; F33.41 Major depressive disorder, recurrent, in partial remission; F41.1 Generalized anxiety disorder; R73.01 Impaired fasting glucose; I25.10 Atherosclerotic heart disease of native coronary artery without angina pectoris; M48.061 Spinal stenosis, lumbar region without neurogenic claudication; E78.9 Disorder of lipoprotein metabolism, unspecified; G58.8 Other specified mononeuropathies; F11.20 Opioid dependence, uncomplicated
CPT/HCPCS: 99214; G2211

== ENCOUNTER 2023-08-15 12:06 | Outpatient (AMB) | payer MEDICARE, MEDICAID, SELFPAY ==
[2023-08-15 12:09] VITALS: BP 130/82; PULSE 86; O2SAT 98; BMI 23.6
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
== END 2023-08-15 13:43 | disposition home or self-care (01) ==
PROVIDERS: PCP Internal Medicine; Visit Provider Internal Medicine
DX: G47.9 Sleep disorder, unspecified (principal); G58.8 Other specified mononeuropathies; F33.41 Major depressive disorder, recurrent, in partial remission; F11.20 Opioid dependence, uncomplicated; G25.81 Restless legs syndrome; M94.0 Chondrocostal junction syndrome [Tietze]; M54.16 Radiculopathy, lumbar region; F41.1 Generalized anxiety disorder; R73.01 Impaired fasting glucose; I25.10 Atherosclerotic heart disease of native coronary artery without angina pectoris; M48.061 Spinal stenosis, lumbar region without neurogenic claudication; E78.9 Disorder of lipoprotein metabolism, unspecified
CPT/HCPCS: 99214; G2211

== ENCOUNTER 2023-09-12 10:51 | Outpatient (AMB) | payer MEDICARE, MEDICAID, SELFPAY ==
[2023-09-12 10:52] VITALS: BP 124/78; PULSE 105; O2SAT 98; BMI 22.4
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
== END 2023-09-12 11:17 | disposition home or self-care (01) ==
PROVIDERS: PCP Internal Medicine; Visit Provider Internal Medicine
DX: G58.8 Other specified mononeuropathies (principal); F33.41 Major depressive disorder, recurrent, in partial remission; F11.20 Opioid dependence, uncomplicated; G47.9 Sleep disorder, unspecified; G25.81 Restless legs syndrome; M94.0 Chondrocostal junction syndrome [Tietze]; M54.16 Radiculopathy, lumbar region; F41.1 Generalized anxiety disorder; R73.01 Impaired fasting glucose; I25.10 Atherosclerotic heart disease of native coronary artery without angina pectoris; M48.061 Spinal stenosis, lumbar region without neurogenic claudication; E78.9 Disorder of lipoprotein metabolism, unspecified
CPT/HCPCS: 99214; G2211

== ENCOUNTER 2023-10-10 09:58 | Outpatient (AMB) | payer MEDICARE, MEDICAID, SELFPAY ==
--- NOTE | 2023-10-10 10:05 | A.OFFPC_ITS ---
Vital Signs 10/10/23 10:07 Height 5 ft 4 in Weight 128 lb BMI 22.0 BP 126/74 Blood Pressure Location Rt brachial Position Sitting Pulse 77 Pulse Source Pulse Oximeter Pulse Oximetry (%) 94 Oxygen Delivery Method Room Air Intake Visit Reasons: med follow up Allergies cefazolin [From [facility]] Allergy (Mild, Verified 10/10/23 10:07) Swelling Medication List - Last Reconciled 10/10/23 by Ciro White MD atorvastatin 40 mg PO QPM baclofen 10 mg PO BID 30 days clopidogrel 75 mg PO DAILY omeprazole 20 mg PO DAILY ondansetron HCl 4 mg PO ONCE PRN 90 days ondansetron HCl 8 mg PO Q12H 30 days oxycodone 5 mg PO Q8H PRN 30 days paroxetine HCl 40 mg PO DAILY solifenacin 10 mg PO DAILY 90 days Tobacco use date assessed: 10/10/23 Dental Screening Dental Screen Date: 10/10/23 Did you have a dental visit in the last 12 months?: Yes Did you have a dental problem in the last 6 months where you did not have access to dental care?: No Was dental information given to patient?: Patient has dentist HPI med follow up HPI Details Patient is a 53-year-old female Feeling better today, patient has started drinking more water and stopped drinking iced tea that she was drinking a lot before She has started smoking again, patient stopped for a while and then restarted and now smoking a pack a day She is requesting Nicoderm patches which I have sent for her Patient finally called the Neurology office and they told her that they are booking in April She is requesting a referral placed to Dr. Chavez [facility] as she has seen him in the past Patient will be seeing him for migraine headaches benign head tremor, restless legs syndrome and difficulty sleeping at night She suffers from chronic nausea off and on and take medication for that I tried Reglan but that in work for her I have sent Zofran again Chronic intercostal neuralgia patient is on , oxycodone and Lidoderm patches for the chronic lumbar pain as needed I have taken off baclofen Depression is better patient have restarted paroxetine, she has started seeing therapist once a week Medication is being filled by psychiatrist in [place] Patient have a toxic environment at home because of her mother's temper Patient continued to have urgency and frequency of urination VESIcare 10 mg is helping off and on Coronary artery disease, follow-up with cardiology Follow-up 4 weeks [facility] Medical History Obsessive compulsive disorder Agoraphobia Personality disorder Anxiety and depression 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) Surgical History Hx of dilation and curettage Hx of knee surgery Hx of tonsillectomy Family History Father Heart attack Hypertension Mother Hypertension Social History Household Members Other:: mom Housing: Condominium Alcohol intake: never Patient Tobacco Use Status: Former Tobacco user Tobacco use type: Cigarette Years Smoked: 32 years e-Cigarette/Vaping Use: Never Used Second Hand Smoke Exposure: No service: No Current occupational status: disabled Current occupational exposures/hazards: No Sexual orientation: Straight/Heterosexual Gender identity: Female Cognitive needs: No Hearing needs: No Vision needs: Yes Questionnaire PHQ-9 Over the last 2 weeks, how often have you been bothered by any of the following problems? 1. Little interest or pleasure in doing things: more than half the days 2. Feeling down, depressed, or hopeless: more than half the days 3. Trouble falling or staying asleep, or sleeping too much: more than half the days 4. Feeling tired or having little energy: more than half the days 5. Poor appetite or overeating: more than half the days 6. Feeling bad about yourself - or that you are a failure or have let yourself or your family down: more than half the days 7. Trouble concentrating on things, such as reading the newspaper or watching television: several days 8. Moving or speaking so slowly that other people could have noticed. Or the opposite - being so fidgety or restless that you have been moving around a lot more than usual: not at all 9. Thoughts that you would be better off or of hurting yourself in some way: not at all Total score: 13 Depression Screening Interpretation: Positive Depression Screening Follow-up: Existing condition and In treatment Depression Screening Done: Yes 58730 - PHQ-9 Billing: Yes Source: Developed by Drs. Dallas Keller, Cassie Frankel, Glynn Blackwell and colleagues, with an educational kane from [employer]. Thrive Questionnaire Date Thrive assessed: 10/10/23 I am a: Patient What is your living situation today?: I have a steady place to live Within the past 12 months, did the food you bought not last and you didn't have the money to get more?: I choose not to answer this question Within the past 12 months, did you worry whether your food would run out before you got money to buy more?: I choose not to answer this question Do you have trouble paying for medicines?: No Do you have trouble getting transportation to medical appointments?: No Do you have trouble paying your heating and electricity bill?: No Do you have trouble taking care of your child, family member or friend?: No Do you have trouble with day-to-day activities such as bathing, preparing meals, shopping, managing finances, etc.?: No Are you currently unemployed and looking for a job?: No Are you interested in more education?: No Please select the resources that you would like help with: None Currently or been in a relationship where the following occur: I choose not to answer THRIVE Score: 0 AUDIT C Alcohol Use Questionnaire (AUDIT-C) 1. How often do you have a drink containing alcohol?: Never 3. How often do you have six or more drinks on one occasion?: Never Total Score: 0 Score Reviewed/Action Taken: Yes FIFI-7 AMB Questionnaire FIFI-7 Date FIFI - 7 assessed: 10/10/23 Feeling nervous, anxious, or on edge: 3 = Nearly every day Not being able to stop or control worryin = Nearly every day Worrying too much about different things: 3 = Nearly every day Trouble relaxin = Nearly every day Being so restless that it is hard to sit still: 0 = Not at all Becoming easily annoyed or irritable: 0 = Not at all Feeling afraid as if something awful might happen: 0 = Not at all Total FIFI-7 score (0-4 normal; 5-9 mild; 10-14 moderate; 15-21 severe): 12 Source: Developed by Cassie Arita, Glynn Blackwell and colleagues, with an educational kane from [employer]. FIFI-7 Assessment Billing FIFI-7 Assessment Tool: FIFI-7 Assessment 62713 Review of Systems Const Denies chills and Denies fever(s) ENT Denies epistaxis and Denies nasal discharge Card Denies chest pain Resp Denies chest congestion, Denies cough and Denies hemoptysis GI Denies diarrhea Skin/Breast Denies rash Neuro Reports no additional complaints Psych Reports no additional complaints Endo Reports no additional complaints Physical exam (Primary Care) Vital Signs: Last Vital Signs Pulse 77 10/10/23 10:07 BP 126/74 10/10/23 10:07 Pulse Ox 94 10/10/23 10:07 Oxygen Delivery Method Room Air 10/10/23 10:07 BMI result Body Mass Index 22.0 Tobacco/Smoking Status: Tobacco use Status Tobacco use date assessed 10/10/23 10/10/23 10:08 Patient Tobacco Use Status Former Tobacco user 10/10/23 10:08 Tobacco use type Cigarette 10/10/23 10:08 e-Cigarette/Vaping Use Never Used 10/10/23 10:08 PHQ-9: PHQ-9 Score PHQ-9: Total score 13 10/10/23 11:28 Depression Screening Interpretation: Positive Depression Screening Follow-up: Existing condition and In treatment Thrive Assessment: Date of Thrive Assessment Date Thrive assessed 10/10/23 10/10/23 10:08 Currently or been in a relationship where the following occur: I choose not to answer Const General: cooperative, comfortable and no acute distress Orientation/consciousness: patient oriented x3 HENMT Head: Yes normocephalic Eyes General: appearance normal, both eyes and all related structures Neck Neck: Yes supple Resp Effort & Inspection: normal respiratory effort, no cough and no stridor Cardio Rhythm: regular rhythm Heart sounds: S1 normal heart sound present and S2 normal heart sound present Skin General skin exam: turgor normal Neuro General: patient oriented x3, tone normal and moves all extremities Extrem Right lower extremity: no edema Left lower extremity: no edema Assessment and Plan Assessment & Plan (1) Intercostal neuralgia: Onset Date: Unknown Code(s): G58.8 - Other specified mononeuropathies (2) Sleep disorder: Code(s): G47.9 - Sleep disorder, unspecified (3) Restless legs syndrome: Code(s): G25.81 - Restless legs syndrome (4) Benign head tremor: Code(s): G25.0 - Essential tremor (5) Headache syndrome: Code(s): G44.89 - Other headache syndrome (6) Costal chondritis: Code(s): M94.0 - Chondrocostal junction syndrome [[place]ietze] (7) Lumbar radiculitis: Code(s): M54.16 - Radiculopathy, lumbar region (8) Major depression, recurrent: Code(s): F33.9 - Major depressive disorder, recurrent, unspecified Qualifiers: Active/Remission status: in partial remission Qualified Code(s): F33.41 - Major depressive disorder, recurrent, in partial remission (9) Anxiety, generalized: Code(s): F41.1 - Generalized anxiety disorder (10) Impaired fasting blood sugar: Code(s): R73.01 - Impaired fasting glucose (11) Coronary artery disease: Code(s): I25.10 - Atherosclerotic heart disease of tling[place] coronary artery without angina pectoris Qualifiers: Associated angina: without angina Coronary Disease-Associated Artery/Lesion type: tling[place] artery [place] vs. transplanted heart: tling[place] & ha[place] heart Qualified Code(s): I25.10 - Atherosclerotic heart disease of [place] coronary artery without angina pectoris (12) Lumbar foraminal stenosis: Code(s): M48.061 - Spinal stenosis, lumbar region without neurogenic claudication (13) Lipid disorder: Code(s): E78.9 - Disorder of lipoprotein metabolism, unspecified (14) Narcotic dependency, continuous: Code(s): F11.20 - Opioid dependence, uncomplicated (15) Urine incontinence: Code(s): R32 - Unspecified urinary incontinence Qualifiers: Urinary Incontinence type: mixed stress and urge incontinence Qualified Code(s): N39.46 - Mixed incontinence (16) Chronic nausea: Code(s): R11.0 - Nausea (17) Pain management contract agreement: Code(s): Z02.89 - Encounter for other administrative examinations Plan Patient is a 53-year-old female Feeling better today, patient has started drinking more water and stopped drinking iced tea that she was drinking a lot before She has started smoking again, patient stopped for a while and then restarted and now smoking a pack a day She is requesting Nicoderm patches which I have sent for her Patient finally called the Neurology office and they told her that they are booking in April She is requesting a referral placed to Dr. Chavez [facility] as she has seen him in the past Patient will be seeing him for migraine headaches benign head tremor, restless legs syndrome and difficulty sleeping at night She suffers from chronic nausea off and on and take medication for that I tried Reglan but that in work for her I have sent Zofran again Chronic intercostal neuralgia patient is on , oxycodone and Lidoderm patches for the chronic lumbar pain as needed I have taken off baclofen Depression is better patient have restarted paroxetine, she has started seeing therapist once a week Medication is being filled by psychiatrist in [place] Patient have a toxic environment at home because of her mother's temper Patient continued to have urgency and frequency of urination VESIcare 10 mg is helping off and on Coronary artery disease, follow-up with cardiology Follow-up 4 weeks 45 minutes spent in care of this patient Reviewing previous labs and notes, [id number] with the patient, coordination of care Orders: Referrals Neurology Referral G25.0 - Essential tremor, G25.81 - Restless legs syndrome, G44.89 - Other headache syndrome, G47.9 - Sleep disorder, unspecified Medications: New nicotine (Nicoderm CQ) 1 patch transdermal DAILY 28 ea 1RF Changed From solifenacin 10 mg PO DAILY 90 days 90 tabs 0RF Urine incontinence To solifenacin 10 mg PO DAILY 30 tabs 6RF Urine incontinence Refilled oxycodone Partial Fill upon patient request. 5 mg PO Q8H PRN 90 tabs 0RF pain 30 days Discontinued baclofen Discontinued Reason: Doctor's Order 10 mg PO BID 30 days 60 tabs 0RF Back spasms Coding Level of Care Code Est Pt Level 5 (88207) Complex EM visit Add On G2211 Diagnoses 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 Sleep disorder G47.9 Restless legs syndrome G25.81 Benign head tremor G25.0 Headache syndrome G44.89 Costal chondritis M94.0 Lumbar radiculitis M54.16 Recurrent major depressive disorder, in partial remission F33.41 Active/Remission status: in partial remission Anxiety, generalized F41.1 Impaired fasting blood sugar R73.01 Coronary artery disease involving t[place] coronary artery of t[place] heart without angina pectoris I25.10 Associated angina: without angina Coronary Disease-Associated Artery/Lesion type: tling[place] artery [place] vs. transplanted heart: tling[place] & ha[place] heart Lumbar foraminal stenosis M48.061 Lipid disorder E78.9 Narcotic dependency, continuous F11.20 Mixed stress and urge urinary incontinence N39.46 Urinary Incontinence type: mixed stress and urge incontinence Chronic nausea R11.0 Pain management contract agreement Z02.89 Additional Codes FIFI-7 Assessment Billing - FIFI-7 Assessment Tool: FIFI-7 Assessment 78054 ([id number])
[2023-10-10 10:07] VITALS: BP 126/74; PULSE 77; O2SAT 94; BMI 22.0
== END 2023-10-10 11:57 | disposition home or self-care (01) ==
PROVIDERS: PCP Internal Medicine; Visit Provider Internal Medicine
DX: G58.8 Other specified mononeuropathies (principal); G47.9 Sleep disorder, unspecified; G25.81 Restless legs syndrome; G25.0 Essential tremor; G44.89 Other headache syndrome; M94.0 Chondrocostal junction syndrome [Tietze]; M54.16 Radiculopathy, lumbar region; F33.41 Major depressive disorder, recurrent, in partial remission; F41.1 Generalized anxiety disorder; R73.01 Impaired fasting glucose; F11.20 Opioid dependence, uncomplicated; I25.10 Atherosclerotic heart disease of native coronary artery without angina pectoris; E78.9 Disorder of lipoprotein metabolism, unspecified; M48.061 Spinal stenosis, lumbar region without neurogenic claudication; N39.46 Mixed incontinence; R11.0 Nausea; Z02.89 Encounter for other administrative examinations
CPT/HCPCS: 96127; 99215; G2211

== ENCOUNTER 2023-10-31 11:30 | Outpatient (AMB) | payer MEDICARE, MEDICAID, SELFPAY ==
--- NOTE | 2023-10-31 11:33 | AM.OFFWIN_ITS ---
Intake Vital Signs 10/31/23 11:35 Height 5 ft 4 in Weight 128 lb BMI 22.0 BP 114/78 Blood Pressure Location Lt brachial Position Sitting Pulse 91 Pulse Source Pulse Oximeter Temp 98.9 F Temp Source Oral Pulse Oximetry (%) 98 Oxygen Delivery Method Room Air Intake Visit Reasons: EP vomiting/diarrhea 1wk. Intake Note: pt c/o vomiting and diarrhea for 1 week. Cannot keep any food down. Vomits 2-5 mins after eating Patient Tobacco Use Status: Current everyday Tobacco user Allergies cefazolin [From [facility]] Allergy (Mild, Verified 10/31/23 11:36) Swelling Do you need a note to return to daycare/school/sports/work: No HPI HPI Comments History of Present Illness Details Patient is a 53-year-old female complaining of 1 week of nausea vomiting and diarrhea. She states that she tries to eat something and will vomit it up within 2-5 minutes. She has tried taking Zofran with no improvement. She states the diarrhea is consistent despite taking Imodium, she denies any watery diarrhea, anything bloody or black in her diarrhea, recent antibiotic use or international travel. She states she lives with her mother but her mother is not sick. She denies any cough, head congestion, fevers or sore throat. [facility] Medical History Obsessive compulsive disorder Agoraphobia Personality disorder Anxiety and depression 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) Surgical History Hx of dilation and curettage Hx of knee surgery Hx of tonsillectomy Family History Father Heart attack Hypertension Mother Hypertension Social History Household Members Other:: mom Housing: Condominium Alcohol intake: never Patient Tobacco Use Status: Current everyday Tobacco user Tobacco use type: Cigarette Years Smoked: 32 years e-Cigarette/Vaping Use: Never Used Second Hand Smoke Exposure: No service: No Current occupational status: disabled Current occupational exposures/hazards: No Sexual orientation: Straight/Heterosexual Gender identity: Female Cognitive needs: No Hearing needs: No Vision needs: Yes Review of Systems Const All systems reviewed & are unremarkable except as noted in HPI and below Physical Exam Vital Signs: Last Vital Signs Temp 98.9 F 10/31/23 11:35 Pulse 91 10/31/23 11:35 BP 114/78 10/31/23 11:35 Pulse Ox 98 10/31/23 11:35 Oxygen Delivery Method Room Air 10/31/23 11:35 BMI result Body Mass Index 22.0 Const General: cooperative, healthy appearing, comfortable, no acute distress and well developed Orientation/consciousness: patient oriented x3 Limitations: no limitations HEENT Head: Yes normal to inspection Ears: hearing grossly normal bilaterally and TM's normal bilaterally General nose exam: Normal external nose present Face and sinus: Yes normal facial exam Throat: Yes tonsils normal, Yes uvula midline and Yes posterior oropharynx abnormal (Erythema) Eyes General: appearance normal, both eyes and all related structures Neck Neck: Yes normal visual inspection and Yes full ROM Resp Effort & Inspection: normal respiratory effort and able to speak in complete sentences GI Inspection: Yes normal to inspection Palpation (GI): Soft to palpation and nontender Skin General skin exam: no rashes or lesions noted Neuro General: patient oriented x3 Extrem General: Yes normal to inspection Assessment & Plan Assessment & Plan (1) Gastroenteritis: Code(s): K52.9 - Noninfective gastroenteritis and colitis, unspecified Plan: Vital signs are stable and patient is well-appearing, abdominal physical exam is unremarkable. We will check a GI PCR at as has been 7 days and she is not getting better. Gave her red flag warning signs and when to go to the emergency department. Recommended supportive care, she does have a an appointment with her PCP in 7 days self no resolution, she should follow up with her PCP. Plan See above Orders: Orders GI Panel Today K52.9 - Noninfective gastroenteritis and colitis, unspecified Coding Level of Care Code Est Pt Level 4 (77576) Diagnoses Gastroenteritis K52.9
[2023-10-31 11:35] VITALS: BP 114/78; PULSE 91; TEMP 37.2; O2SAT 98; BMI 22.0
== END 2023-10-31 12:20 | disposition home or self-care (01) ==
PROVIDERS: PCP Internal Medicine; Visit Provider Physician Assistant
DX: K52.9 Noninfective gastroenteritis and colitis, unspecified (principal)

== ENCOUNTER → 2023-10-31 11:30 | Outpatient (BNVA) | payer MEDICARE, MEDICAID, SELFPAY | PROVIDERS: PCP Internal Medicine | DX: K52.9 Noninfective gastroenteritis and colitis, unspecified (principal) | CPT/HCPCS: 99212 ==

== ENCOUNTER 2023-11-04 11:50 | Outpatient (AMB) | payer MEDICARE, MEDICAID, SELFPAY ==
[2023-11-04 11:59] VITALS: BP 142/80; PULSE 79; TEMP 36.8; O2SAT 97
--- NOTE | 2023-11-04 11:59 | MHC.OFFWIV ---
Intake Vital Signs 11/04/23 11:59 Height 5 ft 4 in BP 142/80 H Blood Pressure Location Rt brachial Position Sitting Pulse 79 Pulse Source Pulse Oximeter Temp 98.3 F Temp Source Oral Pulse Oximetry (%) 97 Intake Visit Reasons: EP chest pain/diff breathing Intake Note: pt is here for chest tightness and difficulty breathing Patient Tobacco Use Status: Current everyday Tobacco user Allergies cefazolin [From [facility]] Allergy (Mild, Verified 11/04/23 12:00) Swelling Do you need a note to return to daycare/school/sports/work: No HPI HPI Comments History of Present Illness Details Patient is a 53yo F who presents to office with chest pain complaint She sees PCP in office and has hx of anxiety, depression and pain management contract She reports with chest pain unable to be controlled at home She is on narcotic pain control for chest discomfort Has pain contract with PCP which is usually controlled Pt also has significant cardiac hx with stent placement She presents today because pain is uncontrolled and was told to be seen if that was the case She has PCP appointment Monday States + 7/10 tight vise like pain to chest Radiation across chest and into shoulders Worse with breathing, movement and palpation + some dyspnea associated Tried at home pain medicine without relief Denies any known cause of pain and said it comes randomly No current URI symptoms PFSH Medical History Obsessive compulsive disorder Agoraphobia Personality disorder Anxiety and depression 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) Surgical History Hx of dilation and curettage Hx of knee surgery Hx of tonsillectomy Family History Father Heart attack Hypertension Mother Hypertension Social History Household Members Other:: mom Housing: Condominium Alcohol intake: never Patient Tobacco Use Status: Current everyday Tobacco user Tobacco use type: Cigarette Years Smoked: 32 years e-Cigarette/Vaping Use: Never Used Second Hand Smoke Exposure: No service: No Current occupational status: disabled Current occupational exposures/hazards: No Sexual orientation: Straight/Heterosexual Gender identity: Female Cognitive needs: No Hearing needs: No Vision needs: Yes Review of Systems Const Denies chills and Denies fever(s) Card Reports chest pain, Denies syncope, Denies leg edema and Reports dyspnea Resp Denies cough and Reports dyspnea GI Denies abdominal pain and Denies vomiting Skin/Breast Denies rash Neuro Denies syncope Psych Reports anxiety Physical Exam Vital Signs: Last Vital Signs Temp 98.3 F 11/04/23 11:59 Pulse 79 11/04/23 11:59 BP 142/80 H 11/04/23 11:59 Pulse Ox 97 11/04/23 11:59 General: Non-toxic but very anxious and tearful during examination. Speaking full sentences. Skin: Warm dry throughout. No rashes appreciated to chest or abdomen Eye: EOMI Respiratory: CTA bilaterally. No wheezes, rales or rhonchi Cardiac: RRR. No murmur Neurology: A/O No aphasia or facial droop. Gait without abnormality Psych: Anxious affect Assessment & Plan Assessment & Plan (1) Chest pain: Code(s): R07.9 - Chest pain, unspecified Qualifiers: Chest pain type: unspecified Qualified Code(s): R07.9 - Chest pain, unspecified Plan: Patient seen and evaluated. EKG obtained and showed no stemi. + 76bpm Discussed with pt need to go to ER due to cardiac hx PCP not here to discuss with Patient gave verbal understanding and had no additional questions or concerns at time of discharge Expect called to [place]. She refused ambulance. She will have someone drive her Coding Level of Care Code Est Pt Level 4 (38842) Diagnoses Chest pain, unspecified type R07.9 Chest pain type: unspecified
== END 2023-11-04 13:33 | disposition home or self-care (01) ==
PROVIDERS: PCP Internal Medicine; Visit Provider Physician Assistant
DX: R07.9 Chest pain, unspecified (principal)

== ENCOUNTER → 2023-11-04 11:50 | Outpatient (BNVA) | payer MEDICARE, MEDICAID, SELFPAY | PROVIDERS: PCP Internal Medicine ==

== ENCOUNTER 2023-11-04 13:11 | Emergency (ER) | payer MEDICARE, MEDICAID, SELFPAY ==
--- NOTE | 2023-11-04 13:14 | ECG_ITS ---
Test Reason : chest pain Blood Pressure : / mmHG Vent. Rate : 079 BPM Atrial Rate : 079 BPM P-R Int : 114 ms QRS Dur : 072 ms QT Int : 538 ms P-R-T Axes : 069 001 031 degrees QTc Int : 616 ms Normal sinus rhythm with sinus arrhythmia Nonspecific ST abnormality Prolonged QT Abnormal ECG When compared with ECG of 29-APR-2022 13:04, Nonspecific T wave abnormality now evident in Inferior leads Nonspecific T wave abnormality now evident in Anterior leads Nonspecific T wave abnormality, improved in Lateral leads QT has lengthened Referred By: Kinga Hall Electronically Signed By:JESU BAKER
[2023-11-04 13:27] VITALS: BP 138/94; PULSE 82; RESP 16; TEMP 36.6; O2SAT 99; BMI 20.9
--- NOTE | 2023-11-04 13:28 | ED.GENADULT ---
HPI - General Adult General Chief complaint: General Medical Stated complaint: CP Time Seen by Provider: 11/04/23 16:34 Source: patient, RN notes reviewed and old records reviewed Mode of arrival: ambulatory Limitations: no limitations History of Present Illness ED Provider: Gopal LEMONS narrative: 53-year-old female with a past medical history significant for ?intercostal neuralgia, ?gastroenteritis, headaches, hyperlipidemia, chronic nausea, anxiety presents for evaluation of chest pain. Patient reports a burning right-sided chest pain that radiates through her breasts for the last 2 days. She reports that she woke up with the pain and was not doing any strenuous activity when it started Her pain is consistent with her ?intercostal neuralgia. Patient reports that she takes oxycodone 5 mg 3 times a day for the pain. Her last prescription was a 90 tablet prescription for 30 days filled on October 10, 2023 The patient denies associated symptoms including nausea vomiting, shortness of breath, palpitations. She denies any history of coronary artery disease The patient does admit that she was vomiting and having diarrhea for about 2 weeks lasting until a few days ago prior to the onset of her symptoms today. She reports no vomiting or diarrhea within the last 3 days Related Data Home Medications ?Medication ?Instructions ?Recorded ?Confirmed paroxetine HCl 20 mg tablet 40 mg PO DAILY 06/14/23 10/10/23 atorvastatin 80 mg tablet 80 mg PO QPM 10/31/23 baclofen 10 mg tablet 10 mg PO BID 10/31/23 Previous Rx's ?Medication ?Instructions ?Recorded clopidogrel 75 mg tablet 75 mg PO DAILY #90 tabs 09/20/22 omeprazole 20 mg capsule,delayed 20 mg PO DAILY #90 caps 07/12/23 release ondansetron HCl 4 mg tablet 4 mg PO ONCE PRN nausea and 09/12/23 vomiting 90 days #90 tabs oxycodone 5 mg tablet 5 mg PO Q8H PRN pain 30 days #90 10/10/23 tabs solifenacin 10 mg tablet 10 mg PO DAILY Urine incontinence 10/10/23 #30 tabs Allergies Allergy/AdvReac Type Severity Reaction Status Date / Time cefazolin [From [facility]] Allergy Mild Swelling Verified 11/04/23 13:31 Review of Systems Constitutional: Constitutional: Denies body ache(s), Denies chills, Denies fever(s) and Denies frequent falls Eyes: Eyes: Denies blurry vision ENT: Denies vertigo and Denies dizziness Cardiovascular: Cardiovascular: Reports chest pain, Reports chest pain at rest, Denies syncope, Denies rapid heart rate, Denies lightheadedness, Denies dyspnea and Denies dyspnea on exertion Respiratory: Respiratory: Denies cough, Denies dyspnea and Denies dyspnea on exertion Gastrointestinal: Gastrointestinal: Denies abdominal pain, Denies nausea and Denies vomiting Musculoskeletal: Musculoskeletal: Denies back pain Integumentary/Breasts: Skin/Breast: Denies rash Neurologic: Denies vertigo, Denies dizziness, Denies syncope and Denies frequent falls PMFSH Past Medical History Medical History Obsessive compulsive disorder Agoraphobia Personality disorder Anxiety and depression 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) Surgical History Hx of dilation and curettage Hx of knee surgery Hx of tonsillectomy Family History Family History Father Heart attack Hypertension Mother Hypertension Social History Social History Household Members Other:: mom Housing: Condominium Alcohol intake: never Patient Tobacco Use Status: Current everyday Tobacco user Tobacco use type: Cigarette Years Smoked: 32 years Smoked in Last 30 Days: No e-Cigarette/Vaping Use: Never Used Second Hand Smoke Exposure: No Use of substances other than those prescribed or required for medical reasons: No Advance Directives: No Advance Directives Information Provided: No Do you have a plan to hurt others: No Plan service: No Current occupational status: disabled Current occupational exposures/hazards: No Sexual orientation: Straight/Heterosexual Gender identity: Female Cognitive needs: No Hearing needs: No Vision needs: Yes Physical Exam ED Vital Signs: Vital Signs - 24 hr 11/04/23 13:27 11/04/23 15:47 11/04/23 18:00 Temperature 97.9 F 98.4 F Pulse Rate 82 73 60 Respiratory Rate 16 18 16 Blood Pressure 138/94 H 149/70 H 157/84 H Pulse Oximetry 99 100 100 Oxygen Delivery Method Room Air Room Air Room Air BMI result Body Mass Index 20.9 Const General: healthy appearing, comfortable, no acute distress, alert and awake Nutritional Appearance: well nourished Orientation/consciousness: patient oriented x3 HENMT Head: Yes normocephalic and Yes atraumatic Eyes Eyelids: Yes eyelids normal Conjunctivae: conjunctivae normal Sclerae: sclerae normal Corneas: corneas normal Pupils: Equal, round and reactive pupils present EOM: EOMs intact bilaterally Neck Neck: Yes full ROM Resp Effort & Inspection: normal respiratory effort, able to speak in complete sentences, no audible wheezes and not labored Auscultation: clear to auscultation bilaterally Cardio Rate: regular rate Rhythm: regular rhythm GI Inspection: No distended Palpation (GI): Soft to palpation, not firm, nontender, no guarding and not rigid Skin General skin exam: elasticity normal Neuro General: patient oriented x3 Cranial nerves: Yes Equal, round and reactive pupils present and Yes Bilaterally intact EOM present Cognition (Neuro): normal cognition Extrem Other: Moving all extremities well without any obvious deformities Course Course Course Narrative: This is a rapid medical exam performed by Bhavesh Hall NP: Additional HPI, ROS, PE not included below will be deferred to primary provider. Patient is a 53-year-old female with history of intercostal neuralgia,atherosclerotic cardiovascular disease, anxiety and depression, agoraphobiam, OCD presenting with complaint of severe chest pain. Took her prescribed oxycodone, heat, ice, lidocaine patches all without relief. Describes as down sternum and wrapping under right breast around to back. Plan: EKG, labs Medications Administered Generic Name Dose Route Start Last Admin Trade Name Freq PRN Reason Stop Dose Admin Potassium Chloride/Sodium Chloride 20 meq in 1,000 mls @ 250 mls/hr 11/04/23 17:00 11/04/23 16:57 Kcl 20 Meq In 0.9 % Sodium Chl IVCONT 250 mls/hr .Q4H ENEDINA Administration Discontinued Medications Generic Name Dose Route Start Last Admin Trade Name Freq PRN Reason Stop Dose Admin Magnesium Sulfate 2 gm in 50 mls @ 25 mls/hr 11/04/23 17:05 11/04/23 18:15 Magnesium Sulfate/H2o IV 11/04/23 19:04 25 mls/hr ONCE ONE Administration Morphine Sulfate 4 mg 11/04/23 16:46 11/04/23 16:57 Morphine Sulfate 4 Mg/Ml Cartridge IVPUSH 11/04/23 16:47 4 mg ONCE ONE Administration Protocol Potassium Chloride 40 meq 11/04/23 15:52 11/04/23 16:07 Potassium Chloride Packet 20 Meq Packet PO 11/04/23 15:53 40 meq ONCE ONE Administration Medical Decision Making Medical Decision Making [facility] Narrative: 53-year-old female with past medical history as documented above presents for evaluation of chest pain. She has chronic chest pain that is described as ?intercostal neuralgia. ? I have a very low suspicion for ACS. The patient's EKG shows a normal sinus rhythm with a rate of 79 beats minute. The patient's QTC is prolonged to 616. Her potassium was noted to be low at 2.6, will add a magnesium level. This is likely related to her vomiting over the last 2 weeks though she has not been vomiting the last 3 days. The patient's initial troponin was negative, and repeat troponin was also normal at 3.0. She has ruled out for ACS. Differential Diagnosis Differential Diagnoses: The differential diagnosis associated with the presentation includes Hypokalemia Hypomagnesemia ACS Arrhythmia Intercostal neuralgia Admission/Observation Consideration of admission/observation: Escalation of care including admission/observation considered Lab Data [facility] Lab Attestation statement: I reviewed the patient's lab results. No leukocytosis or anemia. Normal platelet count. The patient has a hypokalemia of 2.6, likely related to vomiting and diarrhea. Sodium, chloride are within normal limits. Renal function baseline. Troponin normal x2 11/04/23 13:49 11/04/23 13:49 Labs: Lab Results 11/04/23 11/04/23 Range/Units 13:49 16:06 WBC 8.9 (4.8-10.8) X10*3/uL RBC 3.88 L (4.20-5.50) X10*6/uL Hgb 14.2 (12.0-16.0) g/dl Hct 39.7 (37.0-47.0) % MCV 102.3 H (80.0-98.0) fL MCH 36.6 H (27.0-33.0) pg MCHC 35.8 H (31.0-35.0) g/dl RDW 16.2 H (11.0-16.0) % Plt Count 180 D (160-400) X10*3/uL MPV 10.9 (9.4-12.3) fL Immature Gran % (Auto) 0.5 H (0.0-0.4) % Neut % (Auto) 58.6 (45-73) % Lymph % (Auto) 34.6 (20-40) % [place] % (Auto) 5.1 (2-11) % Eos % (Auto) 0.7 (0-4) % Baso % (Auto) 0.5 (0-2) % Lymph # (Auto) 3.1 (1.2-4.9) X10*3/uL [place] # (Auto) 0.5 (0.1-1.2) X10*3/uL Eos # (Auto) 0.1 (0.0-0.4) X10*3/uL Baso # (Auto) 0.0 (0.0-0.2) X10*3/uL Abs Immat Gran (auto) 0.04 H (0.00-0.03) X10*3/uL Absolute Neuts (auto) 5.2 (2.0-8.3) x10*3/uL Absolute Nucleated RBC 0.000 (0.0-0.012) X10*3/uL Nucleated RBC % (auto) 0.0 (0.0-0.2) /100WBC PT 11.9 (10.9-12.4) SEC INR 1.0 (0.9-1.1) Sodium 143 (135-145) mmol/L Potassium 2.6 L* D (3.3-5.1) mmol/L Chloride 105 (96-108) mmol/L Carbon Dioxide 24 (22-29) mmol/L Anion Gap 17 (12-20) BUN 10 (9-16) mg/dL Creatinine 0.63 (0.5-1.4) mg/dL Estim Creat Clear Calc 94.9 Estimated GFR > 60 Random Glucose 96 (60-115) mg/dL Calcium 9.2 (8.4-10.2) mg/dL Magnesium 1.2 L* (1.6-2.6) mg/dL Total Bilirubin 0.8 (0.0-1.0) mg/dL AST 19 (5-31) U/L ALT 11 (0-31) U/L Alkaline Phosphatase 88 (39-117) U/L Troponin I High Sens < 2.7 D 3.0 (<3.5-17.0) ng/L Total Protein 6.7 (6.5-8.0) g/dL Albumin 4.2 (3.5-5.0) g/dL Amylase 50 (28-100) U/L Lipase 19 (8-78) U/L Independent Interpretation I performed an independent interpretation of an: EKG Discharge Plan Discharge Clinical Impression: Chest pain, Acute hypokalemia, Hypomagnesemia Patient Disposition: Home, Self-Care Instructions: Hypokalemia (ED), Hypomagnesemia (ED) Additional Instructions: Your workup in the ER today was significant for a low potassium and low magnesium. I recommend that you follow-up with your primary doctor in 1 week to have these rechecked Your chest pain workup was reassuring, You did not have a heart attack Prescriptions: No Action paroxetine HCl 20 mg tablet 40 mg PO DAILY atorvastatin 80 mg tablet 80 mg PO QPM omeprazole 20 mg capsule,delayed release(DR/EC) 20 mg PO DAILY Qty: 90 0RF ondansetron HCl 4 mg tablet 4 mg PO ONCE PRN (Reason: nausea and vomiting) 90 Days Qty: 90 0RF solifenacin 10 mg tablet 10 mg PO DAILY Qty: 30 6RF oxycodone 5 mg tablet 5 mg PO Q8H PRN (Reason: pain) 30 Days Qty: 90 0RF Rx Instructions: Partial Fill upon patient request. clopidogrel 75 mg tablet 75 mg PO DAILY Qty: 90 3RF baclofen 10 mg tablet 10 mg PO BID Print Language: Yi
[2023-11-04 13:54] LABS: MANUAL DIFF FLAG NO
[2023-11-04 13:55] LABS: Basophils Percent Auto 0.5 % (0-2); Eosinophils Absolute Auto 0.1 X10*3/uL (0.0-0.4); Eosinophils Percent Auto 0.7 % (0-4); Hematocrit 39.7 % (37.0-47.0); Hemoglobin 14.2 g/dl (12.0-16.0); Imm Gran Abs Auto 0.04 X10*3/uL (0.00-0.03); Imm Gran Pct Auto 0.5 % (0.0-0.4); Lymphocytes Absolute Auto 3.1 X10*3/uL (1.2-4.9); Lymphocytes Percent Auto 34.6 % (20-40); Mean Corpuscular HGB Conc 35.8 g/dl (31.0-35.0); Mean Corpuscular Hemoglobin 36.6 pg (27.0-33.0); Mean Corpuscular Volume 102.3 fL (80.0-98.0); Mean Platelet Volume 10.9 fL (9.4-12.3); Monocytes Absolute Auto 0.5 X10*3/uL (0.1-1.2); Monocytes Percent Auto 5.1 % (2-11); Neutrophils Absolute Auto 5.2 x10*3/uL (2.0-8.3); Neutrophils Percent Auto 58.6 % (45-73); Platelet Count 180 X10*3/uL (160-400); Red Blood Count 3.88 X10*6/uL (4.20-5.50); Red Cell Distribution Width 16.2 % (11.0-16.0); White Blood Count 8.9 X10*3/uL (4.8-10.8)
[2023-11-04 14:01] LABS: Prothrombin Time 11.9 SEC (10.9-12.4)
[2023-11-04 14:04] LABS: Amylase 50 U/L (28-100)
[2023-11-04 14:19] LABS: Alanine Aminotransferase 11 U/L (0-31); Albumin Level 4.2 g/dL (3.5-5.0); Alkaline Phosphatase 88 U/L (39-117); Anion Gap 17 (12-20); Aspartate Amino Transferase 19 U/L (5-31); Bilirubin Total 0.8 mg/dL (0.0-1.0); Blood Urea Nitrogen 10 mg/dL (9-16); Calcium 9.2 mg/dL (8.4-10.2); Carbon Dioxide 24 mmol/L (22-29); Chloride 105 mmol/L (96-108); Creatinine Clr Calc Pharmacy 94.9; Estimated Glomerular Filt Rate > 60; Glucose Random 96 mg/dL (60-115); Lipase 19 U/L (8-78); Potassium 2.6 mmol/L (3.3-5.1); Sodium 143 mmol/L (135-145); Total Protein 6.7 g/dL (6.5-8.0); Troponin-I High Sensitivity < 2.7 ng/L (<3.5-17.0)
[2023-11-04 15:47] VITALS: BP 149/70; PULSE 73; RESP 18; TEMP 36.9; O2SAT 100
[2023-11-04] MEDS: Potassium Chloride Packet 20 MEQ PACKET 40 MEQ PO (16:07)
[2023-11-04] MEDS: Morphine Sulfate 4 MG/ML CARTRIDGE IVPUSH (16:57)
[2023-11-04] MEDS: KCl 20 mEq in 0.9 % Sodium ChL 20 MEQ/1,000 ML IV.SOLN 250 MEQ IVCONT (16:57)
[2023-11-04 17:29] LABS: Magnesium 1.2 mg/dL (1.6-2.6)
[2023-11-04 18:00] VITALS: BP 157/84; PULSE 60; RESP 16; O2SAT 100
[2023-11-04] MEDS: Magnesium Sulfate/H2O 2 GM/50 ML PIGGYBACK IV (18:15)
[2023-11-04] MEDS: Ketorolac Tromethamine 15 MG/ML VIAL IVPUSH (20:28)
[2023-11-04 20:42] VITALS: BP 157/91; PULSE 69; RESP 19; TEMP 36.9; O2SAT 97
--- NOTE | 2023-11-04 20:42 | PC.NURSE ---
Patient very tearful/upset about her pain, crying on stretcher, informed patient provider no longer feels narcotics are appropriate to give patient, offered toradol, patient accepted, informed patient discharge paperwork would be printed shortly.
[2023-11-04 21:01] VITALS: BP 157/91; PULSE 69; RESP 19; TEMP 36.9; O2SAT 97
== END 2023-11-04 21:03 | disposition home or self-care (01) ==
PROVIDERS: Physician Assistant; Registered Nurse Emergency; Emergency Provider Internal Medicine; PCP Internal Medicine
DX: R07.9 Chest pain, unspecified (principal); E87.6 Hypokalemia; E83.42 Hypomagnesemia; R51.9 Headache, unspecified; E78.5 Hyperlipidemia, unspecified; R11.0 Nausea; I25.10 Atherosclerotic heart disease of native coronary artery without angina pectoris; Z79.899 Other long term (current) drug therapy
CPT/HCPCS: 36415; 80053; 82150; 83690; 83735; 84484; 85025; 85610; 93005; 96365; 96366; 96375; 99212; 99285; J1885; J2270; J3475; J3480

== ENCOUNTER 2023-11-07 10:07 | Outpatient (AMB) | payer MEDICARE, MEDICAID, SELFPAY ==
--- NOTE | 2023-11-07 10:09 | MHC.PC.OV ---
Vital Signs 11/07/23 10:11 Height 5 ft 5 in Weight 127 lb BMI 21.1 BP 126/80 Blood Pressure Location Rt brachial Position Sitting Pulse 93 Pulse Source Pulse Oximeter Pulse Oximetry (%) 98 Oxygen Delivery Method Room Air Intake Visit Reasons: med visit - see comments Allergies cefazolin [From [facility]] Allergy (Mild, Verified 11/07/23 10:12) Swelling Medication List - Last Reconciled 11/07/23 by Ciro White MD atorvastatin 80 mg PO QPM baclofen 10 mg PO BID clopidogrel 75 mg PO DAILY omeprazole 20 mg PO DAILY ondansetron HCl 4 mg PO ONCE PRN 90 days oxycodone 5 mg PO Q8H PRN 30 days paroxetine HCl 40 mg PO DAILY solifenacin 10 mg PO DAILY Tobacco use date assessed: 10/10/23 Dental Screening Dental Screen Date: 10/10/23 HPI med visit - see comments HPI Details Patient is a 53-year-old female, who suffers from chronic intercostal neuralgia and has been stable with narcotic medication thus far Until recently her pain started to flare-up She visited emergency room for this pain as well Cardiac source of pain was ruled out Patient suffers from depression and anxiety which is also a chronic problem She is seeing a therapist regularly and is taking leftover medication she tells me I have placed a referral for her [facility] I think she should also get established with scene painter as I will not be able to increase her narcotic medication She has been losing weight gradually, she tells me that she does not have any appetite Also suffers from chronic nausea and diarrhea off and on Referral to gastroenterology placed Her recent visit to emergency room showed low magnesium and potassium level She was given supplement Patient is to repeat labs today [facility] Medical History Obsessive compulsive disorder Agoraphobia Personality disorder Anxiety and depression 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) Surgical History Hx of dilation and curettage Hx of knee surgery Hx of tonsillectomy Family History Father Heart attack Hypertension Mother Hypertension Social History Household Members Other:: mom Housing: Condominium Alcohol intake: never Patient Tobacco Use Status: Current everyday Tobacco user Tobacco use type: Cigarette Years Smoked: 32 years e-Cigarette/Vaping Use: Never Used Second Hand Smoke Exposure: No service: No Current occupational status: disabled Current occupational exposures/hazards: No Sexual orientation: Straight/Heterosexual Gender identity: Female Cognitive needs: No Hearing needs: No Vision needs: Yes Questionnaire Thrive Questionnaire Date Thrive assessed: 09/12/23 I am a: Patient What is your living situation today?: I have a steady place to live Within the past 12 months, did the food you bought not last and you didn't have the money to get more?: I choose not to answer this question Within the past 12 months, did you worry whether your food would run out before you got money to buy more?: I choose not to answer this question Do you have trouble paying for medicines?: No Do you have trouble getting transportation to medical appointments?: No Do you have trouble paying your heating and electricity bill?: No Do you have trouble taking care of your child, family member or friend?: No Do you have trouble with day-to-day activities such as bathing, preparing meals, shopping, managing finances, etc.?: No Are you currently unemployed and looking for a job?: No Are you interested in more education?: No Please select the resources that you would like help with: None Currently or been in a relationship where the following occur: I choose not to answer THRIVE Score: 0 FIFI-7 AMB Questionnaire FIFI-7 Date FIFI - 7 assessed: 10/10/23 Source: Developed by Drs. Dallas Keller, Cassie Frankel, Glynn Blackwell and colleagues, with an educational kane from [employer]. Review of Systems Const Denies chills and Denies fever(s) ENT Denies epistaxis and Denies nasal discharge Resp Denies chest congestion, Denies cough and Denies hemoptysis GI Denies diarrhea and Denies nausea Skin/Breast Denies rash Neuro Reports no additional complaints Psych Reports no additional complaints Endo Reports no additional complaints Physical exam (Primary Care) Vital Signs: Last Vital Signs Pulse 93 11/07/23 10:11 BP 126/80 11/07/23 10:11 Pulse Ox 98 11/07/23 10:11 Oxygen Delivery Method Room Air 11/07/23 10:11 BMI result Body Mass Index 21.1 Tobacco/Smoking Status: Tobacco use Status Tobacco use date assessed 10/10/23 11/07/23 10:11 Patient Tobacco Use Status Current everyday Tobacco 11/07/23 10:11 Tobacco use type Cigarette 11/07/23 10:11 e-Cigarette/Vaping Use Never Used 11/07/23 10:11 Thrive Assessment: Date of Thrive Assessment Date Thrive assessed 09/12/23 11/07/23 10:11 Currently or been in a relationship where the following occur: I choose not to answer Const Other: She seems to be uncomfortable secondary to chest pain General: cooperative Orientation/consciousness: patient oriented x3 HENMT Head: Yes normocephalic Eyes General: appearance normal, both eyes and all related structures Neck Neck: Yes supple Resp Effort & Inspection: normal respiratory effort, no cough and no stridor Cardio Rhythm: regular rhythm Heart sounds: S1 normal heart sound present and S2 normal heart sound present GI Other: Abdomen is benign Skin General skin exam: turgor normal Neuro General: patient oriented x3, tone normal and moves all extremities Extrem Right lower extremity: no edema Left lower extremity: no edema Assessment and Plan Assessment & Plan (1) Intercostal neuralgia: Onset Date: Unknown Code(s): G58.8 - Other specified mononeuropathies (2) Nausea vomiting and diarrhea: Code(s): R11.2 - Nausea with vomiting, unspecified; R19.7 - Diarrhea, unspecified (3) Lack of appetite: Code(s): R63.0 - Anorexia (4) Electrolyte abnormality: Code(s): E87.8 - Other disorders of electrolyte and fluid balance, not elsewhere classified (5) Major depression, recurrent: Code(s): F33.9 - Major depressive disorder, recurrent, unspecified Qualifiers: Active/Remission status: in partial remission Qualified Code(s): F33.41 - Major depressive disorder, recurrent, in partial remission (6) Weight loss: Code(s): R63.4 - Abnormal weight loss (7) Narcotic dependency, continuous: Code(s): F11.20 - Opioid dependence, uncomplicated (8) Anxiety, generalized: Code(s): F41.1 - Generalized anxiety disorder Plan Patient is a 53-year-old female, who suffers from chronic intercostal neuralgia and has been stable with narcotic medication thus far Until recently her pain started to flare-up She visited emergency room for this pain as well Cardiac source of pain was ruled out Patient suffers from depression and anxiety which is also a chronic problem She is seeing a therapist regularly and is taking leftover medication she tells me I have placed a referral for her [facility] I think she should also get established with scene painter as I will not be able to increase her narcotic medication She has been losing weight gradually, she tells me that she does not have any appetite Also suffers from chronic nausea and diarrhea off and on Referral to gastroenterology placed Her recent visit to emergency room showed low magnesium and potassium level She was given supplement Patient is to repeat labs today Orders: Orders Basic Metabolic Panel Today E87.8 - Other disorders of electrolyte and fluid balance, not elsewhere classified Drug Screen Urine Today F11.20 - Opioid dependence, uncomplicated, R63.4 - Abnormal weight loss, Z02.89 - Encounter for other administrative examinations Magnesium Today E87.8 - Other disorders of electrolyte and fluid balance, not elsewhere classified TSH reflex Free T4 Today F11.20 - Opioid dependence, uncomplicated, R63.4 - Abnormal weight loss, Z02.89 - Encounter for other administrative examinations Opiates GCMS Expanded, Ur Today F11.20 - Opioid dependence, uncomplicated, R63.4 - Abnormal weight loss, Z02.89 - Encounter for other administrative examinations Referrals Gastroenterology Referral R11.2 - Nausea with vomiting, unspecified, R19.7 - Diarrhea, unspecified, R63.0 - Anorexia, R63.4 - Abnormal weight loss Psychiatry Referral F33.41 - Major depressive disorder, recurrent, in partial remission, F41.1 - Generalized anxiety disorder Pain Management Referral G58.8 - Other specified mononeuropathies Medications: Refilled oxycodone Partial Fill upon patient request. 5 mg PO Q8H 30 days PRN 90 tabs 0RF pain Coding Level of Care Code Est Pt Level 4 (75241) Complex EM visit Add On G2211 Diagnoses 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 Nausea vomiting and diarrhea R11.2; R19.7 Lack of appetite R63.0 Electrolyte abnormality E87.8 Recurrent major depressive disorder, in partial remission F33.41 Active/Remission status: in partial remission Weight loss R63.4 Narcotic dependency, continuous F11.20 Anxiety, generalized F41.1
[2023-11-07 10:11] VITALS: BP 126/80; PULSE 93; O2SAT 98; BMI 21.1
== END 2023-11-07 12:32 | disposition home or self-care (01) ==
PROVIDERS: PCP Internal Medicine; Visit Provider Internal Medicine
DX: G58.8 Other specified mononeuropathies (principal); R11.2 Nausea with vomiting, unspecified; F11.20 Opioid dependence, uncomplicated; F33.41 Major depressive disorder, recurrent, in partial remission; R19.7 Diarrhea, unspecified; R63.0 Anorexia; E87.8 Other disorders of electrolyte and fluid balance, not elsewhere classified; R63.4 Abnormal weight loss; F41.1 Generalized anxiety disorder

== ENCOUNTER → 2023-11-07 10:07 | Outpatient (BNVA) | payer MEDICARE, MEDICAID, SELFPAY | PROVIDERS: PCP Internal Medicine; Visit Provider Internal Medicine | DX: G58.8 Other specified mononeuropathies (principal); R11.2 Nausea with vomiting, unspecified; R19.7 Diarrhea, unspecified; R63.0 Anorexia; E87.8 Other disorders of electrolyte and fluid balance, not elsewhere classified; F33.41 Major depressive disorder, recurrent, in partial remission; R63.4 Abnormal weight loss; F11.20 Opioid dependence, uncomplicated; F41.1 Generalized anxiety disorder | CPT/HCPCS: 99212 ==

== ENCOUNTER 2023-11-16 11:02 | Outpatient (AMB) | payer MEDICARE, MEDICAID, SELFPAY ==
--- NOTE | 2023-11-16 11:03 | MHC.OFFVIS ---
Vital Signs 11/16/23 11:09 Height 5 ft 5 in Weight 122 lb 4 oz BMI 20.3 BP 142/83 H Blood Pressure Location Lt brachial Position Sitting Respiration 16 Pulse 98 Pulse Source Pulse Oximeter Pulse Oximetry (%) 97 Oxygen Delivery Method Room Air Intake Visit Reasons: Mononeuropathies Intake Note: Patient comes in for initial visit was referred by [facility] primary care. Shes accompanied by best friend Andrew. Reports no pain. Accompanied by: Friend Allergies cefazolin [From Anc] Allergy (Mild, Verified 11/16/23 11:13) Swelling HPI Comments Details: Elenita is very pleasant 53 years old female who presents in my office with complains on pain in the anterior chest and posterior upper back she reports her pain is stabbing in nature she started to suffer from this pain sixteen years ago. She has been through multiple visits into multiple practitioners including neurologist, supervising editor trailer, rheumatologists and hemmer automatic's. None of those practitioners diagnose her with any distinct condition. She was diagnose initially with costochondritis however injection of the costochondral junctions done anteriorly resulted in no pain improvement. So Tietse syndrome or costochondritis is not her condition. She also went to supervising editor trailer to possibly connect her condition with esophageal diseases, the workup according to the patient was negative. Fur Feeder also did extensive workup on this patient and did not find any rheumatological condition which could explain this patient's pain. She was frequent visitor of the emergency room with pain 9/10 to 10/10. She tried opioids in small doses such as oxycodone 5 mg t.i.d. which helps her pain minimally. One visit in the emergency room she encountered a hemmer automatic who examined her and thought that she has a heart attack. She received full evaluation for this condition and they found some blockages in her heart, the stents were performed and her EKG returned to normal. She is currently on Plavix. It is not clear whether or not she can not stop Plavix. She can not sleep normally because of her pain she can not do activities of daily living she can not take care of herself but she can not function normally. She reports that her pain is intermittent and there are some days when she has no pain whatsoever. But yet another day she has pain 6 to 8/10. Her pain is getting worse with temperature extreme applications including heat application and cold application exacerbating her pain and only oxycodone helps her pain minimally. In terms of tissue damage he reports her pain is stabbing, lancinating, sharp, cutting, lacerating, sensation. She is currently taking baclofen 10 mg paroxetine 20 mg atorvastatin ondansetron and oxycodone 5 mg t.i.d.. She had multiple sessions of physical therapy she had chiropractic manipulations she had acupuncture neither which was helping for her pain. She had MRIs and CT scans performed on her chest which did not demonstrated the condition which could explain this pain. As I mentioned above she had intercostal costochondral injections which did not alleviate her pain. She had 2 hours of pain relief only it after the pain came back that was injection with steroids. Her past medical history significant for headaches coronary artery disease and anxiety and depression. She had multiple surgeries in the past including left hand left knee surgery bladder buttocks injections tonsillectomy 3 D and C's and 3 stents of the heart. Social history she is on permanent disability she admits smoking cigarettes 1 pack pack per day for 34 years she denies drinking alcohol she denies recreational drugs. [facility] Medical History Obsessive compulsive disorder Agoraphobia Personality disorder Anxiety and depression 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) Surgical History Hx of dilation and curettage Hx of knee surgery Hx of tonsillectomy Family History Father Heart attack Hypertension Mother Hypertension Social History Household Members Other:: mom Housing: Condominium Alcohol intake: never Patient Tobacco Use Status: Current everyday Tobacco user Tobacco use type: Cigarette Years Smoked: 32 years e-Cigarette/Vaping Use: Never Used Second Hand Smoke Exposure: No service: No Current occupational status: disabled Current occupational exposures/hazards: No Sexual orientation: Straight/Heterosexual Gender identity: Female Cognitive needs: No Hearing needs: No Vision needs: Yes Review of Systems ENT Reports Normal hearing present Card Reports as per HPI Resp Reports no additional complaints GI Reports no additional complaints Reports no additional complaints Musc Reports as per HPI Neuro Reports Normal hearing present, Denies Abnormal speech present and Denies Sensory deficit (Neuro) Physical Exam Vital Signs: Last Vital Signs Pulse 98 11/16/23 11:09 Resp 16 11/16/23 11:09 BP 142/83 H 11/16/23 11:09 Pulse Ox 97 11/16/23 11:09 Oxygen Delivery Method Room Air 11/16/23 11:09 BMI result Body Mass Index 20.3 Const General: no acute distress Orientation/consciousness: patient oriented x3 Limitations: no limitations Eyes General: appearance normal, both eyes and all related structures Pupils: Equal, round and reactive pupils present EOM: EOMs intact bilaterally Neck Neck: Yes full ROM Chest Chest palpation & inspection: normal inspection of the chest Resp Effort & Inspection: normal respiratory effort, able to speak in complete sentences, normal respiratory pattern, no audible wheezes and no cough Cardio Jugular venous distension: no JVD GI Inspection: Yes normal to inspection Neuro General: patient oriented x3 and gait normal Cranial nerves: Yes CN's II-XII intact bilaterally, Yes Equal, round and reactive pupils present, Yes Normal hearing present and Yes Ability to bilaterally elevate shoulders present Speech: No Abnormal speech present Gait exam (Neuro): Normal gait present Motor exam (neuro): 5/5 motor strength present throughout Sensory Exam: No Sensory deficit (Neuro) Extrem General: No pedal edema Psych Speech and movement: Normal speech and movement present Affect: normal affect Attitude: cooperative Thought process: Normal thought process present Thought content: Normal thought content present Insight: Good insight present (Psych) Judgement: Good judgement present (Psych) Assessment & Plan Assessment & Plan (1) Chronic idiopathic pain syndrome: Code(s): G89.29 - Other chronic pain Category: Medical (2) Chronic chest wall pain: Code(s): R07.89 - Other chest pain; G89.29 - Other chronic pain Category: Medical (3) Chronic primary pain of thoracic region: Code(s): M54.6 - Pain in thoracic spine; G89.29 - Other chronic pain Category: Medical Plan The origin of the pain for this patient remains obscure to me. She certainly has coronary artery disease and she might benefit from spinal cord stimulator. She still a smoker and she smokes 1 pack per day for the past so many years. It would be better if she can not stopped smoking in preparation for spinal cord stimulator. Also Intrathecal drug delivery system in upper thoracic positioned can not be tried to treat her pain. I gave this patient brochures about spinal cord stimulator as well as intrathecal drug delivery system pain pump. I will see what the patient will say about those procedures on her next appointment. I requested her to obtain summary of care lime spreader, neurologist, hemmer automatic, supervising editor trailer. She reported that all those practitioners are in [place]. Nevertheless I need those summary care before I will proceed for any trials. She also will be scheduled for psychological evaluation here in the office because she does not have computer at home. After psychological evaluation will be done I will see her on the appointment and we will decide which way we will go for her pain treatment. Patient Instructions: I here by testify that I spent 45 minutes in conversation with this patient as well as planning her care and organizing her note. Coding Level of Care Code New Pt Level 4 (92613) Diagnoses Chronic idiopathic pain syndrome G89.29 Chronic chest wall pain R07.89; G89.29 Chronic primary pain of thoracic region M54.6; G89.29
[2023-11-16 11:09] VITALS: BP 142/83; PULSE 98; RESP 16; O2SAT 97; BMI 20.3
== END 2023-11-16 11:29 | disposition home or self-care (01) ==
PROVIDERS: PCP Internal Medicine; Referring Provider Internal Medicine; Visit Provider Anesthesiology
DX: G89.29 Other chronic pain (principal); R07.89 Other chest pain; M54.6 Pain in thoracic spine
CPT/HCPCS: 99204

== ENCOUNTER → 2023-11-16 11:02 | Outpatient (BNVA) | payer MEDICARE, MEDICAID, SELFPAY | PROVIDERS: PCP Internal Medicine; Referring Provider Internal Medicine; Visit Provider Anesthesiology | DX: R07.89 Other chest pain (principal); G89.29 Other chronic pain; M54.6 Pain in thoracic spine; F17.210 Nicotine dependence, cigarettes, uncomplicated | CPT/HCPCS: 99202 ==

== ENCOUNTER 2023-12-02 09:07 | Outpatient (AMB) | payer MEDICARE, MEDICAID, SELFPAY ==
[2023-12-02 09:17] VITALS: BP 110/70; PULSE 84; TEMP 36.8; O2SAT 97; BMI 20.6
--- NOTE | 2023-12-02 09:17 | MHC.OFFWIV ---
Intake Vital Signs 12/02/23 09:17 Height 5 ft 5 in Weight 124 lb BMI 20.6 BP 110/70 Blood Pressure Location Rt brachial Position Sitting Pulse 84 Pulse Source Pulse Oximeter Temp 98.2 F Temp Source Oral Pulse Oximetry (%) 97 Oxygen Delivery Method Room Air Intake Visit Reasons: EP-UTI Intake Note: Pt is here today c/o foul order upon urination and frequency [id number] Patient Tobacco Use Status: Current everyday Tobacco user Allergies cefazolin [From Ancef] Allergy (Mild, Verified 12/02/23 09:33) Swelling HPI HPI Comments History of Present Illness Details She presents with concern UTi 2 weeks ago onset [place] home sick and now worsening + pelvic pain, dysuria and foul smelling urine No medicine for symptoms aside from hydration hx of overactive bladder PFSH Medical History Obsessive compulsive disorder Agoraphobia Personality disorder Anxiety and depression 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) Surgical History Hx of dilation and curettage Hx of knee surgery Hx of tonsillectomy Family History Father Heart attack Hypertension Mother Hypertension Social History Household Members Other:: mom Housing: Condominium Alcohol intake: never Patient Tobacco Use Status: Current everyday Tobacco user Tobacco use type: Cigarette Years Smoked: 32 years e-Cigarette/Vaping Use: Never Used Second Hand Smoke Exposure: No service: No Current occupational status: disabled Current occupational exposures/hazards: No Sexual orientation: Straight/Heterosexual Gender identity: Female Cognitive needs: No Hearing needs: No Vision needs: Yes Review of Systems Const Denies chills and Denies fever(s) Resp Denies cough GI Reports abdominal pain, Denies nausea and Denies vomiting Reports difficulty voiding, Reports dysuria and Reports urinary urgency Musc Denies arthralgias Physical Exam Vital Signs: Last Vital Signs Temp 98.2 F 12/02/23 09:17 Pulse 84 12/02/23 09:17 BP 110/70 12/02/23 09:17 Pulse Ox 97 12/02/23 09:17 Oxygen Delivery Method Room Air 12/02/23 09:17 BMI result Body Mass Index 20.6 General: Non-toxic, NAD. Speaking full sentences. Skin: Warm dry throughout Eye: EOMI Respiratory: CTA bilaterally. No wheezes, rales or rhonchi Cardiac: RRR. No murmur Abdominal: BS present x 4. No tenderness to light and deep palpation. No CVAT MSK: Full ROM extremities. Neurology: A/O. No aphasia or facial droop. Gait without abnormality Psych: Good mood and affect Results AMB Urinalysis, Automated UA Leukoctes 500 Frederic/uL Last Edit by Ignacia Shell CMA on 12/02/23 09:31 UA Nitrite Positive Last Edit by Ignacia Shell CMA on 12/02/23 09:31 UA Urobilinogen 0.2 mg/dL Last Edit by Ignacia Shell CMA on 12/02/23 09:31 UA Protein 0 mg/dL Last Edit by Ignacia Shell CMA on 12/02/23 09:31 UA pH 6.5 Last Edit by Ignacia Shell CMA on 12/02/23 09:31 UA Blood 80 Jorge/uL Last Edit by Ignacia Shell, RUEL on 12/02/23 09:31 UA Specific [place] 1.015 Last Edit by Ignacia Shell CMA on 12/02/23 09:31 UA Ketone Negative Last Edit by Ignacia Shell CMA on 12/02/23 09:31 UA Bilirubin 0 mg/dL Last Edit by Ignacia Shell CMA on 12/02/23 09:31 UA Glucose 0 mg/dL Last Edit by Ignacia Shell CMA on 12/02/23 09:31 Results Reviewed Results Reviewed: Laboratory Last Values Urine pH (Auto) 6.5 12/02/23 09:30 Specific [place] (Auto) 1.015 12/02/23 09:30 Urine Protein (Auto) 0 mg/dL 12/02/23 09:30 Glucose (UA)(Auto) 0 mg/dL 12/02/23 09:30 Urine Ketones (Auto) Negative 12/02/23 09:30 Urine Blood (Auto) 80 Jorge/uL 12/02/23 09:30 Urine Nitrite (Auto) Positive 12/02/23 09:30 Urine Bilirubin (Auto) 0 mg/dL 12/02/23 09:30 Urine Urobilinogen (Auto) 0.2 mg/dL 12/02/23 09:30 Leukocyte Esterase (Auto) 500 Frederic/uL 12/02/23 09:30 Assessment & Plan Assessment & Plan (1) Urinary tract infection: Code(s): N39.0 - Urinary tract infection, site not specified Qualifiers: Hematuria presence: with hematuria Urinary tract infection type: acute cystitis Qualified Code(s): N30.01 - Acute cystitis with hematuria Plan: Patient seen and evaluated. +U/A Macrobid to pharmacy Discussed need to complete full antibiotic course F/U with PCP Patient gave verbal understanding and had no additional questions or concerns at time of discharge All questions answered Orders: Orders AMB Urinalysis Automated Today Z13.9 - Encounter for screening, unspecified Medications: New nitrofurantoin monohyd/m-cryst 100 mg (Macrobid) must administer with a meal/food 100 mg PO BID 14 caps 0RF Coding Level of Care Code Est Pt Level 3 (06573) Diagnoses Acute cystitis with hematuria N30.01 Hematuria presence: with hematuria Urinary tract infection type: acute cystitis
== END 2023-12-02 09:53 | disposition home or self-care (01) ==
PROVIDERS: PCP Internal Medicine; Visit Provider Physician Assistant
DX: Z13.9 Encounter for screening, unspecified (principal); N30.01 Acute cystitis with hematuria

== ENCOUNTER → 2023-12-02 09:07 | Outpatient (BNVA) | payer MEDICARE, MEDICAID, SELFPAY | PROVIDERS: PCP Internal Medicine; Visit Provider Physician Assistant | DX: N30.01 Acute cystitis with hematuria (principal) | CPT/HCPCS: 81003; 99212 ==

== ENCOUNTER 2023-12-05 08:34 | Outpatient (AMB) | payer MEDICARE, MEDICAID, SELFPAY ==
[2023-12-05 08:35] VITALS: BP 120/78; PULSE 90; O2SAT 98; BMI 21.0
--- NOTE | 2023-12-05 08:35 | MHC.PC.OV ---
Vital Signs 12/05/23 08:35 Height 5 ft 5 in Weight 126 lb 6 oz BMI 21.0 BP 120/78 Blood Pressure Location Rt brachial Position Sitting Pulse 90 Pulse Source Pulse Oximeter Pulse Oximetry (%) 98 Oxygen Delivery Method Room Air Intake Visit Reasons: 4 week f/u Allergies cefazolin [From Anc] Allergy (Mild, Verified 12/05/23 08:38) Swelling Medication List - Last Reconciled 12/05/23 by Ciro White MD atorvastatin 80 mg PO QPM baclofen 10 mg PO BID clopidogrel 75 mg PO DAILY nitrofurantoin monohyd/m-cryst 100 mg (Macrobid) 100 mg PO BID omeprazole 20 mg PO DAILY ondansetron HCl 4 mg PO ONCE PRN 90 days oxycodone 5 mg PO Q8H PRN 30 days paroxetine HCl 40 mg PO DAILY solifenacin 10 mg PO DAILY Tobacco use date assessed: 12/05/23 Dental Screening Dental Screen Date: 12/05/23 Did you have a dental visit in the last 12 months?: Yes Did you have a dental problem in the last 6 months where you did not have access to dental care?: No Was dental information given to patient?: Patient has dentist HPI 4 week f/u HPI Details Patient is a 53-year-old female came in today for her regular monthly visit for medication refill Patient has visited pain management specialis Dr Weaver , earlier this month Note reviewed More information was requested, workup done in the past from different specialist Concerned about her depression Concerned about smoking 1 pack per day in spite of coronary artery disease Spinal cord stimulator will be considered, information was provided to patient Patient would not want to have an invasive procedure for pain control She will continue with oxycodone 3 times a day for now Patient is aware that I will not be able to increase the dose or number of tablets per month. I do strongly recommend that she pursue a psychiatric appointment As she continued to feel depressed [facility] Medical History Obsessive compulsive disorder Agoraphobia Personality disorder Anxiety and depression 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) Surgical History Hx of dilation and curettage Hx of knee surgery Hx of tonsillectomy Family History Father Heart attack Hypertension Mother Hypertension Social History Household Members Other:: mom Housing: Condominium Alcohol intake: never Patient Tobacco Use Status: Current everyday Tobacco user Tobacco use type: Cigarette Years Smoked: 32 years e-Cigarette/Vaping Use: Never Used Second Hand Smoke Exposure: No service: No Current occupational status: disabled Current occupational exposures/hazards: No Sexual orientation: Straight/Heterosexual Gender identity: Female Cognitive needs: No Hearing needs: No Vision needs: Yes Questionnaire Thrive Questionnaire Date Thrive assessed: 12/05/23 I am a: Patient What is your living situation today?: I have a steady place to live Within the past 12 months, did the food you bought not last and you didn't have the money to get more?: I choose not to answer this question Within the past 12 months, did you worry whether your food would run out before you got money to buy more?: I choose not to answer this question Do you have trouble paying for medicines?: No Do you have trouble getting transportation to medical appointments?: No Do you have trouble paying your heating and electricity bill?: No Do you have trouble taking care of your child, family member or friend?: No Do you have trouble with day-to-day activities such as bathing, preparing meals, shopping, managing finances, etc.?: No Are you currently unemployed and looking for a job?: No Are you interested in more education?: No Please select the resources that you would like help with: None Currently or been in a relationship where the following occur: I choose not to answer THRIVE Score: 0 AUDIT C Alcohol Use Questionnaire (AUDIT-C) 1. How often do you have a drink containing alcohol?: Never 3. How often do you have six or more drinks on one occasion?: Never Total Score: 0 Score Reviewed/Action Taken: Yes FIFI-7 AMB Questionnaire FIFI-7 Date FIFI - 7 assessed: 10/10/23 Source: Developed by Drs. Dallas Keller, Cassie Frankel, Glynn Blackwell and colleagues, with an educational kane from [employer]. Review of Systems Const Denies chills and Denies fever(s) ENT Denies epistaxis and Denies nasal discharge Resp Denies chest congestion, Denies cough and Denies hemoptysis GI Denies diarrhea and Denies nausea Skin/Breast Denies rash Neuro Reports no additional complaints Psych Reports no additional complaints Endo Reports no additional complaints Physical exam (Primary Care) Vital Signs: Last Vital Signs Pulse 90 12/05/23 08:35 BP 120/78 12/05/23 08:35 Pulse Ox 98 12/05/23 08:35 Oxygen Delivery Method Room Air 12/05/23 08:35 BMI result Body Mass Index 21.0 Tobacco/Smoking Status: Tobacco use Status Tobacco use date assessed 12/05/23 12/05/23 08:40 Patient Tobacco Use Status Current everyday Tobacco 12/05/23 08:40 Tobacco use type Cigarette 12/05/23 08:40 e-Cigarette/Vaping Use Never Used 12/05/23 08:40 Thrive Assessment: Date of Thrive Assessment Date Thrive assessed 12/05/23 12/05/23 08:40 Currently or been in a relationship where the following occur: I choose not to answer Const General: cooperative, comfortable and no acute distress Orientation/consciousness: patient oriented x3 HENMT Head: Yes normocephalic Eyes General: appearance normal, both eyes and all related structures Neck Neck: Yes supple Resp Effort & Inspection: normal respiratory effort, no cough and no stridor Cardio Rhythm: regular rhythm Heart sounds: S1 normal heart sound present and S2 normal heart sound present Skin General skin exam: turgor normal Neuro General: patient oriented x3, tone normal and moves all extremities Extrem Right lower extremity: no edema Left lower extremity: no edema Coding Level of Care Code Est Pt Level 4 (05355) Complex EM visit Add On G2211 Diagnoses 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 Narcotic dependency, continuous F11.20 Atherosclerotic cardiovascular disease I25.10 Chronic nausea R11.0 Anxiety, generalized F41.1 Recurrent major depressive disorder, in partial remission F33.41 Active/Remission status: in partial remission Impaired fasting blood sugar R73.01 Smokes 1 pack of cigarettes per day F17.210 Mixed stress and urge urinary incontinence N39.46 Urinary Incontinence type: mixed stress and urge incontinence Chronic idiopathic pain syndrome G89.29 Assessment & Plan Assessment & Plan (1) Intercostal neuralgia: Onset Date: Unknown Code(s): G58.8 - Other specified mononeuropathies Category: Medical (2) Narcotic dependency, continuous: Code(s): F11.20 - Opioid dependence, uncomplicated Category: Medical (3) Atherosclerotic cardiovascular disease: Code(s): I25.10 - Atherosclerotic heart disease of inupiat coronary artery without angina pectoris Category: Medical (4) Chronic nausea: Code(s): R11.0 - Nausea Category: Medical (5) Anxiety, generalized: Code(s): F41.1 - Generalized anxiety disorder Category: Medical (6) Major depression, recurrent: Code(s): F33.9 - Major depressive disorder, recurrent, unspecified Category: Medical Qualifiers: Active/Remission status: in partial remission Qualified Code(s): F33.41 - Major depressive disorder, recurrent, in partial remission (7) Impaired fasting blood sugar: Code(s): R73.01 - Impaired fasting glucose Category: Medical (8) Smokes 1 pack of cigarettes per day: Code(s): F17.210 - Nicotine dependence, cigarettes, uncomplicated Category: Social Hx (9) Urine incontinence: Code(s): R32 - Unspecified urinary incontinence Category: Medical Qualifiers: Urinary Incontinence type: mixed stress and urge incontinence Qualified Code(s): N39.46 - Mixed incontinence (10) Chronic idiopathic pain syndrome: Code(s): G89.29 - Other chronic pain Category: Medical Plan Patient is a 53-year-old female came in today for her regular monthly visit for medication refill Patient has visited pain management specialis Dr Weaver , earlier this month Note reviewed More information was requested, workup done in the past from different specialist Concerned about her depression Concerned about smoking 1 pack per day in spite of coronary artery disease Spinal cord stimulator will be considered, information was provided to patient Patient would not want to have an invasive procedure for pain control She will continue with oxycodone 3 times a day for now Patient is aware that I will not be able to increase the dose or number of tablets per month. I do strongly recommend that she pursue a psychiatric appointment As she continued to feel depressed Medications: Refilled oxycodone Partial Fill upon patient request. 5 mg PO Q8H 30 days PRN 90 tabs 0RF pain
== END 2023-12-05 09:44 | disposition home or self-care (01) ==
PROVIDERS: PCP Internal Medicine; Visit Provider Internal Medicine
DX: R11.0 Nausea (principal); F11.20 Opioid dependence, uncomplicated; F33.41 Major depressive disorder, recurrent, in partial remission; G58.8 Other specified mononeuropathies; I25.10 Atherosclerotic heart disease of native coronary artery without angina pectoris; F41.1 Generalized anxiety disorder; R73.01 Impaired fasting glucose; F17.210 Nicotine dependence, cigarettes, uncomplicated; N39.46 Mixed incontinence; G89.29 Other chronic pain

== ENCOUNTER → 2023-12-05 08:34 | Outpatient (BNVA) | payer MEDICARE, MEDICAID, SELFPAY | PROVIDERS: PCP Internal Medicine; Visit Provider Internal Medicine | DX: G58.8 Other specified mononeuropathies (principal); I25.10 Atherosclerotic heart disease of native coronary artery without angina pectoris; R11.0 Nausea; F41.1 Generalized anxiety disorder; F33.41 Major depressive disorder, recurrent, in partial remission; R73.01 Impaired fasting glucose; N39.46 Mixed incontinence; G89.29 Other chronic pain; F17.210 Nicotine dependence, cigarettes, uncomplicated; Z79.891 Long term (current) use of opiate analgesic | CPT/HCPCS: 99212 ==

== ENCOUNTER 2023-12-15 08:01 | Outpatient (AMB) | payer MEDICARE, MEDICAID, SELFPAY ==
[2023-12-15 08:08] VITALS: BP 120/80; PULSE 85; O2SAT 92
--- NOTE | 2023-12-15 08:08 | AM.OFFWIN_ITS ---
Intake Vital Signs 12/15/23 08:08 Weight 125 lb 6 oz BP 120/80 Blood Pressure Location Rt brachial Position Sitting Pulse 85 Pulse Source Pulse Oximeter Pulse Oximetry (%) 92 Oxygen Delivery Method Room Air Intake Visit Reasons: EP-rt side cramps from hips to paul Intake Note: Patient here fir right sided hip pain that has been present for about 5 days, she states the pain radiates down the leg and is becoming more of an issue. Patient Tobacco Use Status: Current everyday Tobacco user Allergies cefazolin [From Ancef] Allergy (Mild, Verified 12/15/23 08:11) Swelling Do you need a note to return to daycare/school/sports/work: No HPI HPI Comments 2 History of Present Illness Details Patient is a 53-year-old female complaining of right-sided hip pain that radiates into her leg and muscle spasms in the same areas. She tells me that the pain is a sharp shooting pain that begins in her low back into her buttocks down her leg. She has tried taking magnesium and baclofen for her muscle spasms but it does not seem to be helping. She tells me baclofen does nothing for her. She does take oxycodone daily and that is doing nothing for this pain either. She tells me she has been taking Pedialyte daily. She tells me she has been trying to tolerate it for the last week but it has become unbearable. no loss of control of her bladder or bowels PFSH Medical History Obsessive compulsive disorder Agoraphobia Personality disorder Anxiety and depression 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) Surgical History Hx of dilation and curettage Hx of knee surgery Hx of tonsillectomy Family History Father Heart attack Hypertension Mother Hypertension Social History Household Members Other:: mom Housing: Condominium Alcohol intake: never Patient Tobacco Use Status: Current everyday Tobacco user Tobacco use type: Cigarette Years Smoked: 32 years e-Cigarette/Vaping Use: Never Used Second Hand Smoke Exposure: No service: No Current occupational status: disabled Current occupational exposures/hazards: No Sexual orientation: Straight/Heterosexual Gender identity: Female Cognitive needs: No Hearing needs: No Vision needs: Yes Review of Systems Const All systems reviewed & are unremarkable except as noted in HPI and below Physical Exam Vital Signs: Last Vital Signs Pulse 85 12/15/23 08:08 BP 120/80 12/15/23 08:08 Pulse Ox 92 12/15/23 08:08 Oxygen Delivery Method Room Air 12/15/23 08:08 Const General: cooperative, healthy appearing and comfortable Orientation/consciousness: patient oriented x3 HEENT Head: Yes normal to inspection and Yes normocephalic General nose exam: Normal external nose present Face and sinus: Yes normal facial exam Eyes General: appearance normal, both eyes and all related structures Resp Effort & Inspection: normal respiratory effort and able to speak in complete sentences Back/Spine/Pelvis Cervical Spine: cervical ROM normal Thoracic/Lumbar Spine: thoracic and lumbar spine normal to inspection and straight leg raise positive (right side) Neuro General: patient oriented x3 Extrem Other: Straight leg raise test negative on right; Straight leg raise test negative on left; Reflexes normal ankle and knee bilaterally; motor strength normal bilaterally Assessment & Plan Assessment & Plan (1) Low back pain with right-sided sciatica: Code(s): M54.41 - Lumbago with sciatica, right side Qualifiers: Chronicity: acute Back pain laterality: right Qualified Code(s): M54.41 - Lumbago with sciatica, right side Plan: Recommended stopping the baclofen and I will send cyclobenzaprine for her to try. Also sent prednisone burst. Recommended adding in Aleve, rest and ice. Plan see above Medications: New cyclobenzaprine 5 mg PO Q8H PRN 15 tabs 0RF Muscle Spasm prednisone 40 mg (2 x 20 mg) PO QAM 10 tabs 0RF Coding Level of Care Code Est Pt Level 3 (01253) Diagnoses Acute right-sided low back pain with right-sided sciatica M54.41 Chronicity: acute Back pain laterality: right
== END 2023-12-15 08:44 | disposition home or self-care (01) ==
PROVIDERS: PCP Internal Medicine; Visit Provider Physician Assistant
DX: M54.41 Lumbago with sciatica, right side (principal)

== ENCOUNTER → 2023-12-15 08:01 | Outpatient (BNVA) | payer MEDICARE, MEDICAID, SELFPAY | PROVIDERS: PCP Internal Medicine; Visit Provider Physician Assistant | DX: M54.41 Lumbago with sciatica, right side (principal) | CPT/HCPCS: 99212 ==

== ENCOUNTER 2024-01-01 10:59 | Outpatient (REF) | payer MEDICARE, MEDICAID, SELFPAY ==
[2024-01-01 14:02] LABS: Anion Gap 16 (12-20); Blood Urea Nitrogen 7 mg/dL (9-16); Calcium 9.4 mg/dL (8.4-10.2); Carbon Dioxide 28 mmol/L (22-29); Chloride 104 mmol/L (96-108); Estimated Glomerular Filt Rate > 60; Glucose Random 94 mg/dL (60-115); Magnesium 1.6 mg/dL (1.6-2.6); Potassium 2.9 mmol/L (3.3-5.1); Sodium 145 mmol/L (135-145)
[2024-01-01 14:03] LABS: TSH reflex Free T4 0.36 uIU/mL (0.32-4.0)
== END 2024-01-01 11:00 | disposition home or self-care (01) ==
LOC: HO.HMGCLDS 10:59
PROVIDERS: PCP Internal Medicine; Visit Provider Internal Medicine
DX: E87.8 Other disorders of electrolyte and fluid balance, not elsewhere classified (principal); R63.4 Abnormal weight loss; Z02.89 Encounter for other administrative examinations; F11.20 Opioid dependence, uncomplicated
CPT/HCPCS: 80048; 80365; 83735; 84443; G0480

== ENCOUNTER 2024-01-02 07:54 | Outpatient (REF) | payer MEDICARE, MEDICAID, SELFPAY ==
[2024-01-02 11:42] LABS: Amphetamine Screen Urine Not Detected (Not Detect); Barbiturates, Urine Not Detected (Not Detect); Benzodiazepines Screen Urine Not Detected (Not Detect); Buprenorphine Scr Not Detected (Not Detect); Cannabinoid Screen Urine Not Detected (Not Detect); Cocaine Screen Urine Not Detected (Not Detect); Fentanyl, urine Not Detected (Not Detect); Methadone Screen, Urine Not Detected (Not Detect); Opiate Screen Urine Not Detected (Not Detect); Oxycodone Screen Urine Positive (Not Detect); Phencyclidine Screen Urine Not Detected (Not Detect)
== END 2024-01-02 07:55 | disposition home or self-care (01) ==
LOC: HO.HMGCLDS 07:54
PROVIDERS: PCP Internal Medicine; Visit Provider Internal Medicine
DX: E87.8 Other disorders of electrolyte and fluid balance, not elsewhere classified (principal); G58.8 Other specified mononeuropathies; I25.10 Atherosclerotic heart disease of native coronary artery without angina pectoris; F41.1 Generalized anxiety disorder; F33.41 Major depressive disorder, recurrent, in partial remission; R73.01 Impaired fasting glucose; N39.46 Mixed incontinence; R63.4 Abnormal weight loss; G25.0 Essential tremor; F11.20 Opioid dependence, uncomplicated; F17.210 Nicotine dependence, cigarettes, uncomplicated; Z79.899 Other long term (current) drug therapy; Z02.89 Encounter for other administrative examinations
CPT/HCPCS: 80307; 99212

== ENCOUNTER 2024-01-02 11:05 | Outpatient (AMB) | payer MEDICARE, MEDICAID, SELFPAY ==
[2024-01-02 11:08] VITALS: BP 122/80; PULSE 86; O2SAT 98; BMI 21.0
--- NOTE | 2024-01-02 11:08 | A.OFFPC_ITS ---
Vital Signs 01/02/24 11:08 Height 5 ft 5 in Weight 126 lb BMI 21.0 BP 122/80 Blood Pressure Location Rt brachial Position Sitting Pulse 86 Pulse Source Pulse Oximeter Pulse Oximetry (%) 98 Oxygen Delivery Method Room Air Intake Visit Reasons: Med Review Allergies cefazolin [From Anc] Allergy (Mild, Verified 01/02/24 11:08) Swelling Medication List - Last Reconciled 01/02/24 by Ciro White MD atorvastatin 80 mg PO QPM clopidogrel 75 mg PO DAILY cyclobenzaprine 5 mg PO Q8H PRN omeprazole 20 mg PO DAILY ondansetron HCl 4 mg PO ONCE PRN 90 days oxycodone 5 mg PO Q8H PRN 30 days paroxetine HCl 40 mg PO DAILY potassium chloride ER 10 mEq PO DAILY solifenacin 10 mg PO DAILY Tobacco use date assessed: 01/02/24 Dental Screening Dental Screen Date: 01/02/24 Did you have a dental visit in the last 12 months?: Yes Did you have a dental problem in the last 6 months where you did not have access to dental care?: No Was dental information given to patient?: Patient has dentist HPI Med Review HPI Details The patient is a 53-year-old female Came for monthly visit to have a medication refill that she is taking for chronic costal neuralgia Patient has been having recurrent episodes of hypokalemia. She experienced her first episode in October, with serum potassium levels documented at 2.6 mmol/L, followed by a current incident with levels at 2.9 mmol/L. The patient reports symptoms associated with hypokalemia, including muscle cramping and difficulty bearing weight on her right foot. She was advised to increase her potassium supplementation from one tablet to two daily. Despite the supplementation, the underlying cause of the hypokalemia remains uninvestigated, with no previous consultations with nephrology. Concurrently, referral created patient describes a stable pattern in her mental health management, identifying a history of depression and anxiety, with recent modifications to her paroxetine dosages from three tablets daily down to one, which she has found ineffective. Regular therapy sessions occur, yet the patient reports minimal perceived benefit from long-term therapeutic engagement. She has not successfully transitioned her psychiatric care from a prior psychiatrist in [place] to a local provider. I have been trying to get her to get established with a psychiatrist locally it has been 1-1/2 year For some reason she has not been able to Patient has also has appointment coming up with neurologist April of next year to talk about her sleep Her weight has been stable appetite is stable. She is taking atorvastatin 80 mg and clopidogrel through Cardiology Cyclobenzaprine 5 mg for muscle spasm Omeprazole 20 mg for chronic GERD symptoms she also suffers from chronic nausea and takes Zofran as needed Oxycodone 5 mg 3 times a day for intercostal neuralgia, patient has been evalua kandy by pain management as well Bladder disorder treated with solifenacin PFSH Medical History Obsessive compulsive disorder Agoraphobia Personality disorder Anxiety and depression 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) Surgical History Hx of dilation and curettage Hx of knee surgery Hx of tonsillectomy Family History Father Heart attack Hypertension Mother Hypertension Social History Household Members Other:: mom Housing: Condominium Alcohol intake: never Patient Tobacco Use Status: Current everyday Tobacco user Tobacco use type: Cigarette Years Smoked: 32 years e-Cigarette/Vaping Use: Never Used Second Hand Smoke Exposure: No service: No Current occupational status: disabled Current occupational exposures/hazards: No Sexual orientation: Straight/Heterosexual Gender identity: Female Cognitive needs: No Hearing needs: No Vision needs: Yes Questionnaire Thrive Questionnaire Date Thrive assessed: 01/02/24 I am a: Patient What is your living situation today?: I have a steady place to live Within the past 12 months, did the food you bought not last and you didn't have the money to get more?: I choose not to answer this question Within the past 12 months, did you worry whether your food would run out before you got money to buy more?: I choose not to answer this question Do you have trouble paying for medicines?: No Do you have trouble getting transportation to medical appointments?: No Do you have trouble paying your heating and electricity bill?: No Do you have trouble taking care of your child, family member or friend?: No Do you have trouble with day-to-day activities such as bathing, preparing meals, shopping, managing finances, etc.?: No Are you currently unemployed and looking for a job?: No Are you interested in more education?: No Please select the resources that you would like help with: None Currently or been in a relationship where the following occur: I choose not to answer THRIVE Score: 0 AUDIT C Alcohol Use Questionnaire (AUDIT-C) 1. How often do you have a drink containing alcohol?: Never 3. How often do you have six or more drinks on one occasion?: Never Total Score: 0 Score Reviewed/Action Taken: Yes FIFI-7 AMB Questionnaire FIFI-7 Date FIFI - 7 assessed: 10/10/23 Source: Developed by Drs. Dallas Keller, Cassie Frankel, Glynn Blackwell and colleagues, with an educational kane from [employer]. Review of Systems Const Denies chills and Denies fever(s) ENT Denies epistaxis and Denies nasal discharge Resp Denies chest congestion, Denies cough and Denies hemoptysis GI Denies diarrhea and Denies nausea Skin/Breast Denies rash Neuro Reports no additional complaints Psych Reports no additional complaints Endo Reports no additional complaints Physical exam (Primary Care) Vital Signs: Last Vital Signs Pulse 86 01/02/24 11:08 BP 122/80 01/02/24 11:08 Pulse Ox 98 01/02/24 11:08 Oxygen Delivery Method Room Air 01/02/24 11:08 BMI result Body Mass Index 21.0 Tobacco/Smoking Status: Tobacco use Status Tobacco use date assessed 01/02/24 01/02/24 11:17 Patient Tobacco Use Status Current everyday Tobacco 01/02/24 11:17 Tobacco use type Cigarette 01/02/24 11:17 e-Cigarette/Vaping Use Never Used 01/02/24 11:17 Thrive Assessment: Date of Thrive Assessment Date Thrive assessed 01/02/24 01/02/24 11:18 Currently or been in a relationship where the following occur: I choose not to answer Const General: cooperative, comfortable and no acute distress Orientation/consciousness: patient oriented x3 HENMT Head: Yes normocephalic Eyes General: appearance normal, both eyes and all related structures Neck Neck: Yes supple Resp Effort & Inspection: normal respiratory effort, no cough and no stridor Cardio Rhythm: regular rhythm Heart sounds: S1 normal heart sound present and S2 normal heart sound present Skin General skin exam: turgor normal Neuro General: patient oriented x3, tone normal and moves all extremities Extrem Right lower extremity: no edema Left lower extremity: no edema Coding Level of Care Code Est Pt Level 4 (41853) Complex EM visit Add On G2211 Diagnoses Electrolyte abnormality E87.8 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 Narcotic dependency, continuous F11.20 Coronary artery disease involving [place] coronary artery of [place] heart without angina pectoris I25.10 Associated angina: without angina Coronary Disease-Associated Artery/Lesion type: [place] artery [place] vs. transplanted heart: [place] heart Anxiety, generalized F41.1 Recurrent major depressive disorder, in partial remission F33.41 Active/Remission status: in partial remission Impaired fasting blood sugar R73.01 Mixed stress and urge urinary incontinence N39.46 Urinary Incontinence type: mixed stress and urge incontinence Benign head tremor G25.0 Smokes 1 pack of cigarettes per day F17.210 Assessment & Plan Assessment & Plan (1) Electrolyte abnormality: Code(s): E87.8 - Other disorders of electrolyte and fluid balance, not elsewhere classified Category: Medical (2) Intercostal neuralgia: Onset Date: Unknown Code(s): G58.8 - Other specified mononeuropathies Category: Medical (3) Narcotic dependency, continuous: Code(s): F11.20 - Opioid dependence, uncomplicated Category: Medical (4) Coronary artery disease: Code(s): I25.10 - Atherosclerotic heart disease of [place] coronary artery without angina pectoris Category: Medical Qualifiers: Associated angina: without angina Coronary Disease-Associated Artery/Lesion type: [place] artery [place] vs. transplanted heart: [place] heart Qualified Code(s): I25.10 - Atherosclerotic heart disease of [place] coronary artery without angina pectoris (5) Anxiety, generalized: Code(s): F41.1 - Generalized anxiety disorder Category: Medical (6) Major depression, recurrent: Code(s): F33.9 - Major depressive disorder, recurrent, unspecified Category: Medical Qualifiers: Active/Remission status: in partial remission Qualified Code(s): F33.41 - Major depressive disorder, recurrent, in partial remission (7) Impaired fasting blood sugar: Code(s): R73.01 - Impaired fasting glucose Category: Medical (8) Urine incontinence: Code(s): R32 - Unspecified urinary incontinence Category: Medical Qualifiers: Urinary Incontinence type: mixed stress and urge incontinence Qualified Code(s): N39.46 - Mixed incontinence (9) Benign head tremor: Code(s): G25.0 - Essential tremor Category: Medical (10) Smokes 1 pack of cigarettes per day: Code(s): F17.210 - Nicotine dependence, cigarettes, uncomplicated Category: Social Hx Plan The patient is a 53-year-old female Came for monthly visit to have a medication refill that she is taking for chronic costal neuralgia Patient has been having recurrent episodes of hypokalemia. She experienced her first episode in October, with serum potassium levels documented at 2.6 mmol/L, followed by a current incident with levels at 2.9 mmol/L. The patient reports symptoms associated with hypokalemia, including muscle cramping and difficulty bearing weight on her right foot. She was advised to increase her potassium supplementation from one tablet to two daily. Despite the supplementation, the underlying cause of the hypokalemia remains uninvestigated, with no previous consultations with nephrology. Concurrently, referral created patient describes a stable pattern in her mental health management, identifying a history of depression and anxiety, with recent modifications to her paroxetine dosages from three tablets daily down to one, which she has found ineffective. Regular therapy sessions occur, yet the patient reports minimal perceived benefit from long-term therapeutic engagement. She has not successfully transitioned her psychiatric care from a prior psychiatrist in [place] to a local provider. I have been trying to get her to get established with a psychiatrist locally it has been 1-1/2 year For some reason she has not been able to Patient has also has appointment coming up with neurologist April of next year to talk about her sleep Her weight has been stable appetite is stable. She is taking atorvastatin 80 mg and clopidogrel through Cardiology Cyclobenzaprine 5 mg for muscle spasm Omeprazole 20 mg for chronic GERD symptoms she also suffers from chronic nausea and takes Zofran as needed Oxycodone 5 mg 3 times a day for intercostal neuralgia, patient has been evaluated by pain management as well Bladder disorder treated with solifenacin Orders: Orders Basic Metabolic Panel 3 Days E87.8 - Other disorders of electrolyte and fluid balance, not elsewhere classified Referrals Nephrology Referral E87.8 - Other disorders of electrolyte and fluid balance, not elsewhere classified Medications: Refilled oxycodone Partial Fill upon patient request. 5 mg PO Q8H 30 days PRN 90 tabs 0RF pain
== END 2024-01-02 13:50 | disposition home or self-care (01) ==
PROVIDERS: PCP Internal Medicine; Visit Provider Internal Medicine
DX: E87.8 Other disorders of electrolyte and fluid balance, not elsewhere classified (principal); F11.20 Opioid dependence, uncomplicated; F33.41 Major depressive disorder, recurrent, in partial remission; G58.8 Other specified mononeuropathies; I25.10 Atherosclerotic heart disease of native coronary artery without angina pectoris; F41.1 Generalized anxiety disorder; R73.01 Impaired fasting glucose; N39.46 Mixed incontinence; G25.0 Essential tremor; F17.210 Nicotine dependence, cigarettes, uncomplicated

== ENCOUNTER 2024-01-05 11:00 | Outpatient (REF) | payer MEDICARE, MEDICAID, SELFPAY ==
[2024-01-05 13:16] LABS: Appearance Urine Clear; Color Urine Yellow; Glucose Urine UA Negative (Negative); Leukocyte Esterase Urine Trace (Negative); Nitrite Urine Negative (Negative); UMIC TRIGGER UACC YES; Urine Blood Small (1+) (Negative); Urine Ketones Negative (Negative); Urine Protein Negative (Neg-Trace)
[2024-01-05 13:22] LABS: Bacteria Urine None Seen (None Seen); Hyaline Casts Urine 0-2 /LPF (0-2); Squamous Epithelial Cell Urine 0-2 /HPF (0-2); WBC Urine 0-5 /HPF (0-5)
[2024-01-05 13:47] LABS: Anion Gap 15 (12-20); Blood Urea Nitrogen 7 mg/dL (9-16); Calcium 9.7 mg/dL (8.4-10.2); Carbon Dioxide 31 mmol/L (22-29); Chloride 99 mmol/L (96-108); Estimated Glomerular Filt Rate > 60; Glucose Random 107 mg/dL (60-115); Potassium 3.1 mmol/L (3.3-5.1); Sodium 142 mmol/L (135-145)
[2024-01-09 09:00] LABS: Codeine, Ur NEGATIVE; Hydrocodone, Ur NEGATIVE
[2024-01-09 09:01] LABS: Hydromorphone, Ur NEGATIVE; Morphine, Ur NEGATIVE; Norhydrocodone, Ur NEGATIVE
[2024-01-09 09:03] LABS: Noroxycodone, Ur >10000 (H); Oxycodone, Ur 3257 (H); Oxymorphone, Ur 1140 (H)
== END 2024-01-05 11:01 | disposition home or self-care (01) ==
LOC: HO.HMGCLDS 11:00
PROVIDERS: PCP Internal Medicine; Visit Provider Internal Medicine
DX: R63.4 Abnormal weight loss (principal); Z02.89 Encounter for other administrative examinations; F11.20 Opioid dependence, uncomplicated; E87.8 Other disorders of electrolyte and fluid balance, not elsewhere classified; R35.0 Frequency of micturition
CPT/HCPCS: 80048; 80365; 81001; G0480

== ENCOUNTER 2024-01-30 13:28 | Outpatient (AMB) | payer MEDICARE, MEDICAID, SELFPAY ==
--- OUTSIDE RECORDS SUMMARY | 2024-01-30 13:32 | XMS_ITS | Data Portability ---
Author Organization [facility] [id number] Address [address] [place] [address] Assessment No assessment recorded. Plan of Treatment Reminders Order Date Submit Date Provider Last Modified By Organization Details Last Modified Time Details Appointments None recorded. Lab None recorded. Referral orthopedic spine surgeon referral 2022 023 [email or web address] Not available 11:04:13 Procedures None recorded. Surgeries None recorded. Imaging None recorded. Medication Orders cyclobenzap rine 10 mg tablet 2022 023 [id number], [address], [place], [id number], 16:54:46 Medrol (Philip) 4 mg tablets in a dose pack 2022 023 [id number], [address], [place], [id number], 10:14:12 Patient TargetsNo targets recorded. Patient Instructions Encounter Date Encounter Id Patient Instructions Last Modified By Organization Details Last Modified Time 04/30/2022 [id number] getting back to normal after low back pain: care instructions [email or web address] Not available 04/30/2022 16:54:37 05/07/2022 [id number] getting back to normal after low back pain: care instructions [email or web address] Not available 05/07/2022 10:14:04 Reason for Referral Orthopedic Spine Surgeon Ref erral for Low back pain Referring Physician: Cristian Trujillo, Urgent Care, Encounter Date: 05/07/2022 Problems Name Problem SNOMED Code Status Onset Date Resolution Date Notes Provider Name and Address Organization Details Recorded Time Depressive disorder 52562471 Active 2022 Christy Rama null, [place] - [facility] 3 15:08:17 Migraine 01305784 Active 2022 Christy Rama null, PA - [facility] 3 15:08:22 Anxiety 97432938 Active 2022 Christy Rama null, PA - [facility] 3 15:08:27 Neuralgia 53733900 Active 2022 Christy Rama null, PA - [facility] 3 15:08:45 Hyperlipidemia 89925442 Active 2022 Christy Rama null, PA - [facility] 3 15:08:57 Notes:3 heart stents Problem Notes None recorded. Procedures Surgical History Date Name Laterality Status Provider Name and Address Organization Details Recorded Time insertion of arterial stent completed Christy [place] PA - [facility] 04/30/2022 15:10:20 Imaging Results None recorded. Procedure Notes None recorded. Medical Equipment None Reported. Allergies No known drug allergies Medications Name Sig Start Date Stop Date Status Note LastModified by Organization Details LastModified Time cyclobenzap rine 10 mg tablet TAKE 1 TABLET BY MOUTH THREE TIMES DAILY FOR 10 DAYS active Not Available Not Available No t Available alprazolam 1 mg tablet active Not Available Not Available Not Available levetiracet am 500 mg tablet active Not Available Not Available Not Available Medrol (Philip) 4 mg tablets in a dose pack take as directed 2022 active Not Available Not Available Not Avai lable prednisone 20 mg tablet TAKE 2 TABLETS BY MOUTH DAILY 04/30 completed Not Available Not Available Not Available clopidogrel 75 mg tablet active Not Available Not Available Not Available paroxetine 20 mg tablet active Not Available Not Available Not Available oxycodone 5 mg tablet TAKE 1 TABLET BY MOUTH EVERY 8 HOURS NEEDED FOR PAIN 05/07 completed Not Available Not Available Not Available atorvastati n active Not Available Not Available Not Available omeprazole active Not Available Not Av ailable Not Available prochlorper azine active Not Available Not Available Not Available Vitals Date Recorded Body height Body mass index (BMI) Body weight Oxygen saturation Oxygen saturation in Arterial blood by Pulse oximetry Heart rate Respiratory rate Body temperature Systolic blood pressure Diastolic blood pressure Provider Name and Address Organization Details Last Updated DateTime 3 165.1 cm 30 kg/m2 40125.6 3 g 99 % 99 % 98 /min 20 /min 98.1 [degF] 116 mm[Hg] 78 mm[Hg] Christy Ontiveros PA - [facility] 3 15:11:40 Date Recorded Body height Body mass index (BMI) Body weight Oxygen saturation Oxygen saturation in Arterial blood by Pulse oximetry Heart rate Respiratory rate Body temperature Systolic blood pressure Diastolic blood pressure Provider Name and Address Organization Details Last Updated DateTime 3 165.1 cm 30 kg/m2 85955.6 3 g 100 % 100 % 104 /min 18 /min 98.1 [degF] 127 mm[Hg] 79 mm[Hg] Molly Dieudonne PA - [facility] 3 09:28:21 Social History Question Answer Notes LastModified by [employer] ion Details LastModified Time Tobacco Smoking Status Former Smoker Christy gu PA - [facility] 04/30/2022 15:10:10 What Is Your Level Of Alcohol Consumption? None Information not available 04/30/2022 When Did You Quit Smoking? 1-5yearssin celastcijulianne ette Information not available 04/30/2022 Have You Had Direct Contact, Or Contact During Intimacy, With Monkeypox Rash, Scabs, Or Body Fluids From A Person With Monkeypox? No Information not available 04/30/2022 Do You Use Any Illicit Or Recreational Drugs? No Information not available 04/30/2022 Have You Recently Traveled Abroad? No Information not available 04/30/2022 Do You Or Have You Ever Used Any Other Forms Of Tobacco Or Nicotine? No Information not available 04/30/2022 Sex: Unknown Functional Status None recorded. Mental Status None recorded. Family History Relationship Description Onset Age of this Age Resolved Age Notes LastModified by Organization Details LastModified Time Father No current problems or disability Not available 04/30 15:09:56 Mother No current problems or disability Not available 04/30 15:09:56 Medical History No medical history recorded. Gynecological HistoryNo gynecological history recorded. Obstetrics History GPAL:G 0 P 0 0 0 0 Past Encounters Encounter ID Performer Location Encounter Start Date Encounter Closed Date Diagnosis/Indication Diagnosis SNOMED-CT Code Diagnosis ICD10 Code [id number] [place] [address] [address] 04/30/2022 10:46:51 04/30/2022 16:55:38 Spasm of back muscles 517945248 M62.830 [id number] Cristian Trujillo DO [facility] [address] [address] 05/07/2022 08:21:34 05/07/2022 10:24:41 Low back pain 435920511 M54.50 Health Concerns Section Related Observation LastModified by Organization Detai ls LastModified Time None Recorded Concern Status LastModified by Organization Details LastModified Time None Recorded Advance Directives Directive None Recorded Payers Encounter Date Sequence Insurance Name Policy Number Policy Chaudhry Covered Member ID Chaudhry Member ID Guarantor Name 04/30/2022 1 [place] [employer] Elenita Douglas [id number] Elenita Douglas 05/07/2022 1 [place] [employer] Elenita Douglas [id number] Elenita Douglas Notes Date Note Type Note Provider Name and Address Organization Details Recorded Time 04/30/2022 text/html Back Pain/Injury UCReported bypatient.Location:low er back; middle of the back; upper back Quality:sharp;muscle spasms Severity:pain level 9/10 Duration:started 04/26/2022 Context:overuse; Shoveling heavy snow. Alleviating Factors:analgesics; heat; lying down; rest Aggravating Factors:going from sit to stand;standing C/O pain that starts at neck and goes all the way down back. Worst of the pain is midback down. Went to the ED yesterday and waited 8 hours, did bloodwork/xrays/EKG/bl oodwork which they stated was fine. She states her customer service teller told her not to take NSAIDS for pain. She says she gets too hyper when she takes prednisone. CHIVO DERAS MD [address] [place], [address], [place] [facility] 04/30/2022 17:01:44 05/07/2022 text/html Back Pain/Injury UCReported bypatient.Notes:52 yo female c/o LBPwas seen here on 04/30 for back pain. Pt injured back shoveling.She was Rx'd a muscle relaxer which she is taking as well as topical analgesia, heating pad and tylenolshe cannot have NSAIDsPrednisone makes her hyper Sx are not improved and getting worsec/o numbness and tingling in legs BLno bowel/bladder incontinenceno saddle anesthesiano rash She does not have a PCP Cristian Trujillo DO [address] [place], [address], [place] - [facility] 05/07/2022 10:38:57 OBGyn Episode No OBEpisode recorded.
[2024-01-30 13:44] VITALS: BP 120/78; PULSE 94; O2SAT 97; BMI 19.4
--- NOTE | 2024-01-30 13:44 | MHC.PC.OV ---
Vital Signs 01/30/24 13:44 Height 5 ft 5 in Weight 116 lb 6 oz BMI 19.4 BP 120/78 Blood Pressure Location Rt brachial Position Sitting Pulse 94 Pulse Source Pulse Oximeter Pulse Oximetry (%) 97 Oxygen Delivery Method Room Air Intake Visit Reasons: Med review Allergies cefazolin [From Anc] Allergy (Mild, Verified 01/30/24 13:47) Swelling Medication List - Last Reconciled 01/30/24 by Ciro White MD atorvastatin 80 mg PO QPM clopidogrel 75 mg PO DAILY cyclobenzaprine 5 mg PO Q8H PRN omeprazole 20 mg PO DAILY ondansetron HCl 4 mg PO ONCE PRN 90 days oxycodone 5 mg PO Q8H PRN 30 days paroxetine HCl 40 mg PO DAILY potassium chloride ER 10 mEq PO DAILY solifenacin 10 mg PO DAILY Tobacco use date assessed: 01/30/24 Dental Screening Dental Screen Date: 01/30/24 Did you have a dental visit in the last 12 months?: Yes Did you have a dental problem in the last 6 months where you did not have access to dental care?: No Was dental information given to patient?: Patient has dentist HPI Med review HPI Details Chief Complaint The patient presents with concerns regarding potassium levels and sleep disturbances. Assessment and Plan 53-year-old female with a history of hypokalemia, presenting for follow-up on potassium levels and kidney function, as well as consultation on chronic sleep disturbances. Her hypokalemia has shown improvement but remains suboptimal, and there is a persistent presence of microscopic hematuria, suggesting possible underlying renal pathology. The patient also reports ongoing sleep issues, characterized by prolonged inability to sleep followed by extended sleep periods. 1. Sleep Disorder The patient reports severe sleep disturbances, warranting referral to a neurologist or sleep specialist. A sleep study was considered to further investigate the cause of the disorder. The patient was encouraged to discuss further with the sleep specialist, considering the complex interplay with potential neurological factors. She was referred to Neurology because of tremors but patient never made any appointments 2. Hypokalemia The patient's potassium levels remain low, although improved. I have communicated the need for repeat laboratory evaluation to assess current potassium levels. Continued potassium supplementation has been prescribed, and the need to consult with a manager technical sales has been emphasized to investigate potential underlying renal pathology. 3. Tremors Given the patient's symptoms of tremors, correlated with her sleep issues, further assessment by a neurologist is advised to determine any potential underlying neurological conditions. The patient is urged to follow through with neurologist consultation. 4. Microscopic Hematuria Due to the recurrent microscopic hematuria, further investigation into possible renal causes is warranted. A referral to nephrology has been advised for specialized evaluation to determine any underlying renal concerns. 5. Intercostal neuralgia, her usual narcotic pain medication has been sent Diagnostic results - Labs: - Previous lab results indicated low potassium levels. - Previous urinalysis showed microscopic hematuria. Problem List - Hypokalemia - Microscopic Hematuria - Sleep Disorder - Tremor -intercostal neuralgia Medications - Potassium supplementation for management of hypokalemia. Health Maintenance - Recommendations for follow-up with a manager technical sales. - Referral to a neurologist/sleep specialist for comprehensive sleep disorder evaluation and potential sleep study. Patient Instructions - Schedule and attend follow-up appointments with manager technical sales and neurologist as instructed. - Continue taking prescribed potassium supplements as directed. - Complete repeat laboratory tests to monitor potassium levels. - Adhere to referrals for further investigation into sleep disturbances and tremors. 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 ON LICENSE OF [facility] Medical History Obsessive compulsive disorder Agoraphobia Personality disorder Anxiety and depression 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) Surgical History Hx of dilation and curettage Hx of knee surgery Hx of tonsillectomy Family History Father Heart attack Hypertension Mother Hypertension Social History Household Members Other:: mom Housing: Condominium Alcohol intake: never Patient Tobacco Use Status: Current everyday Tobacco user Tobacco use type: Cigarette Years Smoked: 32 years e-Cigarette/Vaping Use: Never Used Second Hand Smoke Exposure: No service: No Current occupational status: disabled Current occupational exposures/hazards: No Sexual orientation: Straight/Heterosexual Gender identity: Female Cognitive needs: No Hearing needs: No Vision needs: Yes Questionnaire Thrive Questionnaire Date Thrive assessed: 09/12/23 I am a: Patient What is your living situation today?: I have a steady place to live Within the past 12 months, did the food you bought not last and you didn't have the money to get more?: I choose not to answer this question Within the past 12 months, did you worry whether your food would run out before you got money to buy more?: I choose not to answer this question Do you have trouble paying for medicines?: No Do you have trouble getting transportation to medical appointments?: No Do you have trouble paying your heating and electricity bill?: No Do you have trouble taking care of your child, family member or friend?: No Do you have trouble with day-to-day activities such as bathing, preparing meals, shopping, managing finances, etc.?: No Are you currently unemployed and looking for a job?: No Are you interested in more education?: No Please select the resources that you would like help with: None Currently or been in a relationship where the following occur: I choose not to answer THRIVE Score: 0 FIFI-7 AMB Questionnaire FIFI-7 Date FIFI - 7 assessed: 10/10/23 Source: Developed by Drs. Dallas Keller, Cassie Frankel, Glynn Blackwell and colleagues, with an educational kane from [employer]. Review of Systems Const Denies chills and Denies fever(s) ENT Denies epistaxis and Denies nasal discharge Resp Denies chest congestion, Denies cough and Denies hemoptysis GI Denies diarrhea and Denies nausea Skin/Breast Denies rash Neuro Reports no additional complaints Psych Reports no additional complaints Endo Reports no additional complaints Physical exam (Primary Care) Vital Signs: Last Vital Signs Pulse 94 01/30/24 13:44 BP 120/78 01/30/24 13:44 Pulse Ox 97 01/30/24 13:44 Oxygen Delivery Method Room Air 01/30/24 13:44 BMI result Body Mass Index 19.4 Tobacco/Smoking Status: Tobacco use Status Tobacco use date assessed 01/30/24 01/30/24 13:47 Patient Tobacco Use Status Current everyday Tobacco 01/30/24 13:47 Tobacco use type Cigarette 01/30/24 13:47 e-Cigarette/Vaping Use Never Used 01/30/24 13:47 Thrive Assessment: Date of Thrive Assessment Date Thrive assessed 09/12/23 01/30/24 13:47 Currently or been in a relationship where the following occur: I choose not to answer Const General: cooperative, comfortable and no acute distress Orientation/consciousness: patient oriented x3 HENMT Head: Yes normocephalic Eyes General: appearance normal, both eyes and all related structures Neck Neck: Yes supple Resp Effort & Inspection: normal respiratory effort, no cough and no stridor Cardio Rhythm: regular rhythm Heart sounds: S1 normal heart sound present and S2 normal heart sound present Skin General skin exam: turgor normal Neuro General: patient oriented x3, tone normal and moves all extremities Extrem Right lower extremity: no edema Left lower extremity: no edema Coding Level of Care Code Est Pt Level 4 (19266) Complex EM visit Add On G2211 Diagnoses Electrolyte abnormality E87.8 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 Narcotic dependency, continuous F11.20 Anxiety, generalized F41.1 Recurrent major depressive disorder, in partial remission F33.41 Active/Remission status: in partial remission Impaired fasting blood sugar R73.01 Mixed stress and urge urinary incontinence N39.46 Urinary Incontinence type: mixed stress and urge incontinence Benign head tremor G25.0 Smokes 1 pack of cigarettes per day F17.210 Assessment & Plan Assessment & Plan (1) Electrolyte abnormality: Code(s): E87.8 - Other disorders of electrolyte and fluid balance, not elsewhere classified Category: Medical (2) Intercostal neuralgia: Onset Date: Unknown Code(s): G58.8 - Other specified mononeuropathies Category: Medical (3) Narcotic dependency, continuous: Code(s): F11.20 - Opioid dependence, uncomplicated Category: Medical (4) Anxiety, generalized: Code(s): F41.1 - Generalized anxiety disorder Category: Medical (5) Major depression, recurrent: Code(s): F33.9 - Major depressive disorder, recurrent, unspecified Category: Medical Qualifiers: Active/Remission status: in partial remission Qualified Code(s): F33.41 - Major depressive disorder, recurrent, in partial remission (6) Impaired fasting blood sugar: Code(s): R73.01 - Impaired fasting glucose Category: Medical (7) Urine incontinence: Code(s): R32 - Unspecified urinary incontinence Category: Medical Qualifiers: Urinary Incontinence type: mixed stress and urge incontinence Qualified Code(s): N39.46 - Mixed incontinence (8) Benign head tremor: Code(s): G25.0 - Essential tremor Category: Medical (9) Smokes 1 pack of cigarettes per day: Code(s): F17.210 - Nicotine dependence, cigarettes, uncomplicated Category: Social Hx Plan Chief Complaint The patient presents with concerns regarding potassium levels and sleep disturbances. Suffers from chronic depression and anxiety and continued to smoke 1 pack per day Patient also has a history of interstitial cystitis and urinary incontinence, has extensive workup for bladder in [place] before moving in [facility] [place] uses Assessment and Plan 53-year-old female with a history of hypokalemia, presenting for follow-up on potassium levels and kidney function, as well as consultation on chronic sleep disturbances. Her hypokalemia has shown improvement but remains suboptimal, and there is a persistent presence of microscopic hematuria, suggesting possible underlying renal pathology. The patient also reports ongoing sleep issues, characterized by prolonged inability to sleep followed by extended sleep periods. 1. Sleep Disorder The patient reports severe sleep disturbances, warranting referral to a neurologist or sleep specialist. A sleep study was considered to further investigate the cause of the disorder. The patient was encouraged to discuss further with the sleep specialist, considering the complex interplay with potential neurological factors. She was referred to Neurology because of tremors but patient never made any appointments 2. Hypokalemia The patient's potassium levels remain low, although improved. I have communicated the need for repeat laboratory evaluation to assess current potassium levels. Continued potassium supplementation has been prescribed, and the need to consult with a manager technical sales has been emphasized to investigate potential underlying renal pathology. 3. Tremors Given the patient's symptoms of tremors, correlated with her sleep issues, further assessment by a neurologist is advised to determine any potential underlying neurological conditions. The patient is urged to follow through with neurologist consultation. 4. Microscopic Hematuria Due to the recurrent microscopic hematuria, further investigation into possible renal causes is warranted. A referral to nephrology has been advised for specialized evaluation to determine any underlying renal concerns. 5. Intercostal neuralgia, her usual narcotic pain medication has been sent Diagnostic results - Labs: - Previous lab results indicated low potassium levels. - Previous urinalysis showed microscopic hematuria. Problem List - Hypokalemia - Microscopic Hematuria - Sleep Disorder - Tremor -intercostal neuralgia Medications - Potassium supplementation for management of hypokalemia. Health Maintenance - Recommendations for follow-up with a manager technical sales. - Referral to a neurologist/sleep specialist for comprehensive sleep disorder evaluation and potential sleep study. Patient Instructions - Schedule and attend follow-up appointments with manager technical sales and neurologist as instructed. - Continue taking prescribed potassium supplements as directed. - Complete repeat laboratory tests to monitor potassium levels. - Adhere to referrals for further investigation into sleep disturbances and tremors. 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 Orders: Orders Basic Metabolic Panel Today E87.8 - Other disorders of electrolyte and fluid balance, not elsewhere classified Medications: Refilled oxycodone Partial Fill upon patient request. 5 mg PO Q8H PRN 90 tabs 0RF pain 30 days potassium chloride ER 10 mEq PO DAILY 14 tabs 0RF
== END 2024-01-30 14:12 | disposition home or self-care (01) ==
PROVIDERS: PCP Internal Medicine; Visit Provider Internal Medicine
DX: E87.8 Other disorders of electrolyte and fluid balance, not elsewhere classified (principal); F11.20 Opioid dependence, uncomplicated; F33.41 Major depressive disorder, recurrent, in partial remission; G58.8 Other specified mononeuropathies; F41.1 Generalized anxiety disorder; R73.01 Impaired fasting glucose; N39.46 Mixed incontinence; G25.0 Essential tremor; F17.210 Nicotine dependence, cigarettes, uncomplicated

== ENCOUNTER → 2024-01-30 13:28 | Outpatient (BNVA) | payer MEDICARE, MEDICAID, SELFPAY | PROVIDERS: PCP Internal Medicine; Visit Provider Internal Medicine | DX: E87.8 Other disorders of electrolyte and fluid balance, not elsewhere classified (principal); G58.8 Other specified mononeuropathies; F11.20 Opioid dependence, uncomplicated; F41.1 Generalized anxiety disorder; F33.41 Major depressive disorder, recurrent, in partial remission; R73.01 Impaired fasting glucose; N39.46 Mixed incontinence; G25.0 Essential tremor; F17.210 Nicotine dependence, cigarettes, uncomplicated; Z71.6 Tobacco abuse counseling | CPT/HCPCS: 99212 ==

== ENCOUNTER 2024-02-01 10:49 | Outpatient (AMB) | payer MEDICARE, MEDICAID, SELFPAY ==
--- OUTSIDE RECORDS SUMMARY | 2024-02-01 10:51 | XMS_ITS | Data Portability ---
Author Organization [facility] [address] Address [address] [place] [address] Assessment No assessment recorded. Plan of Treatment Reminders Order Date Submit Date Provider Last Modified By Organization Details Last Modified Time Details Appointments None recorded. Lab None recorded. Referral orthopedic spine surgeon referral 2022 023 [email or web address] Not available 11:04:13 Procedures None recorded. Surgeries None recorded. Imaging None recorded. Medication Orders cyclobenzap rine 10 mg tablet 2022 023 [place] [id number], [address] [place], [place], [id number], 16:54:46 Medrol (Philip) 4 mg tablets in a dose pack 2022 023 [facility] #[id number], [address], [place], [id number], 10:14:12 Patient TargetsNo targets recorded. Patient Instructions Encounter Date Encounter Id Patient Instructions Last Modified By Organization Details Last Modified Time 04/30/2022 [id number] getting back to normal after low back pain: care instructions [email or web address] Not available 04/30/2022 16:54:37 05/07/2022 [id number] getting back to normal after low back pain: care instructions [email or web address] Not available 05/07/2022 10:14:04 Reason for Referral Orthopedic Spine Surgeon Ref erral for Low back pain Referring Physician: Cristian Trujillo, Urgent Care, Encounter Date: 05/07/2022 Problems Name Problem SNOMED Code Status Onset Date Resolution Date Notes Provider Name and Address Organization Details Recorded Time Depressive disorder 77816028 Active 2022 Christy Rama null, PA - [facility] 3 15:08:17 Migraine 43590959 Active 2022 Christy Rama null, PA - [facility] 3 15:08:22 Anxiety 54007872 Active 2022 Christy Rama null, PA - [facility] 3 15:08:27 Neuralgia 54673329 Active 2022 Christy Rama null, PA - [facility] 3 15:08:45 Hyperlipidemia 64071447 Active 2022 Christy Rama null, PA - [facility] 3 15:08:57 Notes:3 heart stents Problem Notes None recorded. Procedures Surgical History Date Name Laterality Status Provider Name and Address Organization Details Recorded Time insertion of arterial stent completed Christy Sodus PA - [facility] 04/30/2022 15:10:20 Imaging [...] Updated DateTime 3 165.1 cm 30 kg/m2 00547.6 3 g 99 % 99 % 98 [...] Updated DateTime 3 165.1 cm 30 kg/m2 99788.6 3 g 100 % 100 % 104 /min 18 /min 98.1 [degF] 127 mm[Hg] 79 mm[Hg] Molly Dieudonne PA - [facility] 3 09:28:21 Social History Question Answer Notes LastModified by [facility] ion Details LastModified Time Tobacco Smoking Status [...] Diagnosis/Indication Diagnosis SNOMED-CT Code Diagnosis ICD10 Code [id number] [place] [address] [id number] 04/30/2022 10:46:51 04/30/2022 16:55:38 Spasm of back muscles 444842036 M62.830 [id number] Cristian Trujillo DO [facility] [address] [address] 05/07/2022 08:21:34 05/07/2022 10:24:41 Low back pain 869410291 M54.50 Health Concerns Section Related Observation LastModified by Organization Detai ls LastModified Time None Recorded Concern Status LastModified by Organization Details LastModified Time None Recorded Advance Directives Directive None Recorded Payers Encounter Date Sequence Insurance Name Policy Number Policy Chaudhry Covered Member ID Chaudhry Member ID Guarantor Name 04/30/2022 1 [place] [employer] Elenita Douglas [id number] Elenita Douglas 05/07/2022 1 [place] [employer] Elenita Douglas [id number] Elenita Douglas Notes Date Note Type [...] they stated was fine. She states her fundraiser told her not to take NSAIDS for pain. She says she gets too hyper when she takes prednisone. CHIVO DERAS MD [address] [place], [address], PA [facility] 04/30/2022 17:01:44 05/07/2022 text/html Back Pain/Injury [...] Cristian Trujillo DO [address] [place], [address], [place] - [facility] 05/07/2022 10:38:57 OBGyn Episode No OBEpisode recorded.
--- OUTSIDE RECORDS SUMMARY | 2024-02-01 10:52 | XMS_ITS | Continuity of Care Document ---
Author Organization [facility] Address [address] [place] [address] Phone Care Team Providers Care Tube Maker Name Role Phone Jennifer BUSH, FACS, FAAOA, [...] Copied on Encounter Office/Outpa tient Visit, Est [facility], [address] [place] [address], [address] [place] [address] , tel:[phone] Rodriguez Lump in throat (chief complaint) sore throat (chief complaint) Mass of epiglottisLaryngop haryngeal reflux (LPR)Dysphagia, unspecified typeAnxietyH/O heart artery stent 1 Jennifer Gusmana. [address] [place] [address], [id number], . tel:[phone] Specialist : Milind Finch MD, [address] [place] [address], [address]. tel:[phone] cialist: Miya Armendariz MD, [address], [place], [address]. tel:[phone] cialist: Woodrow Bullock MD, [address] [place] [address], [address]. [phone] erring Provider: Frank Edmonds MD, Family Medicine [address] [place] [address], [address]. tel:[phone] [facility], [address] [place] [address], [address] [place] [address] , tel:[phone] Flex No Information 1 Flex Romeo. [address] [place] [address], [address] [place] [address], . tel:[phone] Referring Provider: Frank Edmonds MD, Family Medicine [address] [place] [address], [address]. tel:[phone] [facility], [address] [place] [address], [address] [place] [address] , tel:[phone] Aurora No Information 0 No Information Referring Provider: Frank Edmonds MD, Family Medicine [address] [place] [address], [address]. tel:[phone] Office/Outpa tient Visit, [facility], [address] [place] [address], [address] [place] [address] , tel:[phone] Flex Dysphagia follow up (chief complaint) Current smokerDysphagia, unspecified typeAnxietyLaryngo pharyngeal reflux (LPR)Mass of epiglottis 0 Flex Romeo. [address] [place] [address], [id number], . tel:[phone] Specialist : Milind Finch MD, [address] [place] [address], [address]. tel:[phone] cialist: Miya Armendariz MD, [address] [place] [address], [address]. tel:[phone] cialist: Woodrow Bullock MD, [address] [place] [address], [address]. tel:[phone] erring Provider: Frank Edmonds MD, Family Medicine [address] [place] [address], [address]. tel:[phone] [facility], [address] [place] [address], [address] [place] [address] , tel:[phone] Patient Portal No Information 0 Jennifer Colón. [address] [place] [address], [address] [place] [address], . tel:[phone] Office/Outpa tient Visit, [facility], [address] [place] [address], [address] [place] [address] , tel:[phone] Simon Dysphagia (chief complaint) Dysphagia, unspecified typeLaryngopharyng eal reflux (LPR)AnxietyMass of epiglottisCurrent smoker 0 No Credit Rating Inspector : Milind Finch MD, [address] [place] [address], [address]. tel:[phone] cialist: Miya Armendariz MD, [address] [place] [address], [address]. tel:[phone] cialist: Woodrow Bullock MD, [address] [place] [address], [address]. tel:[phone] erring Provider: Frank Edmonds MD, Family Medicine [address] [place] [address], [address]. tel:[phone] Office/Outpa tient Visit, [facility], [address] [place] [address], [id number] , tel:[phone] Setzen Facial pain (chief complaint) Headache around the eyesTMJ derangementDeviate d nasal septumReferred otalgia of both ears Aug-0 3-201 8 Renny Capone. [address] [facility], [place], [place], [id number], . tel:[phone] Specialist : Milind Finch MD, [address] [place], [address]. tel:[phone] cialist: Miya Armendariz, [address], [place], [address]. tel:[phone] cialist: Woodrow Bullock MD, [address] [facility] [address], [place], [address]. tel:[phone] erring Provider: Frank Edmonds MD, Family Medicine [address] [place] [address], [address]. tel:[phone] Family History Family Member Type Diagnosis Age At Onset Father Problem (finding) Heart disease Payers Payer name Insurance type Covered green party ID Authoriza tion(s) MEDICARE PART B [id number] Social History Type Description Quantity Date Captured [...] sore throat in the AM. She used Monroe yesterday with relief. Stilhaving some difficulty swallowing [...] sore throat in the AM. She used Monroe yesterday with relief. 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 Additional information: Was in [facility] ER last week - left [...] are variable and intense. 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 I will request records [...]
[2024-02-01 12:43] VITALS: BP 120/80; PULSE 81; TEMP 36.9; O2SAT 96; BMI 18.8
--- NOTE | 2024-02-01 12:43 | MHC.OFFWIV ---
Intake Vital Signs 02/01/24 12:43 Height 5 ft 5 in Weight 113 lb BMI 18.8 BP 120/80 Blood Pressure Location Rt brachial Position Sitting Pulse 81 Pulse Source Pulse Oximeter Temp 98.5 F Temp Source Oral Pulse Oximetry (%) 96 Oxygen Delivery Method Room Air Intake Visit Reasons: EP-nauseous, muscle cramp, vomiting, headache Intake Note: Patient here for vomiting, abd cramping, nausea and has not been able to keep food down for about 2 days now. Patient Tobacco Use Status: Current everyday Tobacco user Allergies cefazolin [From [facility]] Allergy (Mild, Verified 02/01/24 12:50) Swelling HPI HPI Comments History of Present Illness Details History of Present Illness The patient is a 53-year-old female presenting with acute gastroenteritis symptoms characterized by persistent vomiting and diarrhea that started after visiting Dr. White 2 days ago. She reports violent spasms following vomiting, with the expulsion primarily of fluids as she has been unable to retain any solids or liquids. The diarrhea is described as watery, sometimes flaky, but without any blood or black discoloration. No significant travel or dietary changes were reported. She denies fevers or recently eaten suspicious foods. There is history of notable unintentional weight loss, from size 01/26 to size 2, without clear cause or intent which her PCP is working on with her. Patient mentions that she experiences constant muscle cramps, which might be due to hypokalemia previously noted in December. The patient has been unable to eat, leading to dehydration concerns, and she has reported a decreased appetite. Additionally, persistent insomnia, deemed untreatable concurrently with prescribed pain medication, exacerbates her fatigue. The patient does not exhibit any fever. Smoking cessation is inadvertently promoted due to nausea induced by tobacco use. Previous medical advice included electrolyte replenishment with sports drinks. Physical Exam General: Cooperative, healthy appearing, comfortable, no acute distress and well developed Orientation: Patient oriented x3 Limitations: No limitations Head: Normal to inspection Ears: Hearing grossly normal bilaterally Nose: Normal external nose present Face and sinus: Normal facial exam Eyes: Appearance normal, both eyes and all related structures Neck: Normal visual inspection and Yes full ROM Respiratory: Normal respiratory effort and able to speak in complete sentences. 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) Surgical History Hx of dilation and curettage Hx of knee surgery Hx of tonsillectomy Family History Father Heart attack Hypertension Mother Hypertension Social History Household Members Other:: mom Housing: Condominium Alcohol intake: never Patient Tobacco Use Status: Current everyday Tobacco user Tobacco use type: Cigarette Years Smoked: 32 years e-Cigarette/Vaping Use: Never Used Second Hand Smoke Exposure: No service: No Current occupational status: disabled Current occupational exposures/hazards: No Sexual orientation: Straight/Heterosexual Gender identity: Female Cognitive needs: No Hearing needs: No Vision needs: Yes Review of Systems Const All systems reviewed & are unremarkable except as noted in HPI and below Physical Exam Vital Signs: Last Vital Signs Temp 98.5 F 02/01/24 12:43 Pulse 81 02/01/24 12:43 BP 120/80 02/01/24 12:43 Pulse Ox 96 02/01/24 12:43 Oxygen Delivery Method Room Air 02/01/24 12:43 BMI result Body Mass Index 18.8 Assessment & Plan Assessment & Plan (1) Nausea vomiting and diarrhea: Code(s): R11.2 - Nausea with vomiting, unspecified; R19.7 - Diarrhea, unspecified Plan: - Ordered Gastrointestinal GI panel to determine if a bacterial illness could be contributing to symptoms, advised pt to do it if not feeling better tomorrow but more likely this is a viral gastroenteritis. - Recommended pt do the labs her PCP ordered 2 days ago, including potassium levels to monitor and manage hypokalemia, encouraging the intake of potassium-rich foods such as bananas. - Recommend medical attention if symptoms persist for more than a few days or if experiencing exacerbated abdominal pain or fever, suggesting a potential gallbladder issue as RUQ tenderness - Emphasize the importance of avoiding smoking due to aggravated nausea and encourage preventive measures against tobacco use disorder. - Suggest urgent care and ED options for acquiring intravenous fluids if dehydration symptoms progress. Patient was informed and verbally consented to the use of an ambient scribe for clinic note documentation during this visit. Orders: Orders GI Panel Today R11.2 - Nausea with vomiting, unspecified, R19.7 - Diarrhea, unspecified Coding Level of Care Code Est Pt Level 4 (43115) Diagnoses Nausea vomiting and diarrhea R11.2; R19.7
== END 2024-02-01 13:16 | disposition home or self-care (01) ==
PROVIDERS: PCP Internal Medicine; Visit Provider Physician Assistant
DX: R11.2 Nausea with vomiting, unspecified (principal); R19.7 Diarrhea, unspecified

== ENCOUNTER 2024-02-01 10:49 | Outpatient (REF) | payer MEDICARE, MEDICAID, SELFPAY ==
--- OUTSIDE RECORDS SUMMARY | 2024-02-01 13:14 | XMS_ITS | Continuity of Care Document ---
Author Organization [facility] Address [address] [place] [address] Phone Care Team Providers Care Marketing Proposal Coordinator Name Role Phone Jennifer BUSH, FACS, FAAOA, [...] Copied on Encounter Office/Outpa tient Visit, Est [facility], [address] [place] [address], [address] [place] [address] , tel:[phone] Rodriguez Lump in throat (chief complaint) sore throat (chief complaint) Mass of epiglottisLaryngop haryngeal reflux (LPR)Dysphagia, unspecified typeAnxietyH/O heart artery stent 1 Jennifer Gusmana. [address] [place] [address], [id number], . tel:[phone] Specialist : Milind Finch MD, [address] [place] [address], [address]. tel:[phone] cialist: Miya Armendariz MD, [address] [facility] [address], [place], [address]. tel:[phone] cialist: Woodrow Bullock MD, [address] [place] [address], [address]. [phone] erring Provider: Frank Edmonds MD, Family Medicine [address] [place] [address], [address]. tel:[phone] [facility], [address] [place] [address], [address] [place] [address] , tel:[phone] Flex No Information 1 Flex Romeo. [address] [place] [address], [address] [place] [address], . tel:[phone] Referring Provider: Frank Edmonds MD, Family Medicine [address] [place] [address], [address]. tel:[phone] [facility], [address] [place] [address], [address] [place] [address] , tel:[phone] Aurora No Information 0 No Information Referring Provider: Frank Edmonds MD, Family Medicine [address] [place] [address], [address]. tel:[phone] Office/Outpa tient Visit, [facility], [address] [place] [address], [address] [place] [address] , tel:[phone] Flex Dysphagia follow up (chief complaint) Current smokerDysphagia, unspecified typeAnxietyLaryngo pharyngeal reflux (LPR)Mass of epiglottis 0 Flex Romeo. [address] [place] [address], [id number], . tel:[phone] Specialist : Milind Finch MD, [address] [place] [address], [address]. tel:[phone] cialist: Miya Armendariz MD, [address] [place] [address], [address]. tel:[phone] cialist: Woodrow Bullock MD, [address] [place] [address], [address]. tel:[phone] erring Provider: Frank Edmonds MD, Family Medicine [address] [place] [address], [address]. tel:[phone] [facility], [address] [place] [address], [address] [place] [address] , tel:[phone] Patient Portal No Information 0 Jennifer Colón. [address] [place] [address], [address] [place] [address], . tel:[phone] Office/Outpa tient Visit, [facility], [address] [place] [address], [address] [place] [address] , tel:[phone] Simon Dysphagia (chief complaint) Dysphagia, unspecified typeLaryngopharyng eal reflux (LPR)AnxietyMass of epiglottisCurrent smoker 0 No Pulp Refiner Operator : Milind Finch MD, [address] [place] [address], [address]. tel:[phone] cialist: Miya Armendariz MD, [address] [place] [address], [address]. tel:[phone] cialist: Woodrow Bullock MD, [address] [place] [address], [address]. tel:[phone] erring Provider: Frank Edmonds MD, Family Medicine [address] [place] [address], [address]. tel:[phone] Office/Outpa tient Visit, [facility], [address] [place] [address], [id number] , tel:[phone] Setzen Facial pain (chief complaint) Headache around the eyesTMJ derangementDeviate d nasal septumReferred otalgia of both ears Aug-0 3-201 8 Renny Capone. [address] [facility], [place], [place], [id number], . tel:[phone] Specialist : Milind Finch MD, [address] [place], [address]. tel:[phone] cialist: Miya Armendariz, [address] [facility] [address], [place], [address]. tel:[phone] cialist: Woodrow Bullock MD, [address] [facility] [address], [place], [address]. tel:[phone] erring Provider: Frank Edmonds MD, Family Medicine [address] [place] [address], [address]. tel:[phone] Family History Family Member Type Diagnosis Age At Onset Father Problem (finding) Heart disease Payers Payer name Insurance type Covered constitution party ID Authoriza tion(s) MEDICARE PART B [id number] Social History Type Description Quantity Date Captured [...] sore throat in the AM. She used [place] yesterday with relief. Stilhaving some difficulty swallowing [...] sore throat in the AM. She used [place] yesterday with relief. 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 Additional information: Was in [facility] ER last week - left arm [...] are variable and intense. She saw an director machine who told her that her eyes were [...] have a normal upper endoscopy with her billing coordinator several months ago. I will request records [...]
[2024-02-01 18:08] LABS: Anion Gap 13 (12-20); Blood Urea Nitrogen 8 mg/dL (9-16); Calcium 8.8 mg/dL (8.4-10.2); Carbon Dioxide 33 mmol/L (22-29); Chloride 97 mmol/L (96-108); Estimated Glomerular Filt Rate > 60; Glucose Random 107 mg/dL (60-115); Potassium 2.9 mmol/L (3.3-5.1); Sodium 140 mmol/L (135-145)
== END 2024-02-01 10:50 | disposition home or self-care (01) ==
LOC: HO.HMGCLDS 10:49
PROVIDERS: PCP Internal Medicine; Visit Provider Internal Medicine
DX: R11.2 Nausea with vomiting, unspecified (principal); E87.8 Other disorders of electrolyte and fluid balance, not elsewhere classified; R19.7 Diarrhea, unspecified
CPT/HCPCS: 36415; 80048; 99212

== ENCOUNTER 2024-02-03 09:44 | Outpatient (REF) | payer MEDICARE, MEDICAID, SELFPAY ==
--- OUTSIDE RECORDS SUMMARY | 2024-02-03 09:47 | XMS_ITS | Continuity of Care Document ---
Author Organization [facility] Address [address] [place] [address] Phone Care Team Providers Care Iron Launder Operator Name Role Phone Jennifer BUSH, FACS, FAAOA, [...] Copied on Encounter Office/Outpa tient Visit, Est [facility], [address] [place] [address], [address] [place] [address] , tel:[phone] Rodriguez Lump in throat (chief complaint) sore throat (chief complaint) Mass of epiglottisLaryngop haryngeal reflux (LPR)Dysphagia, unspecified typeAnxietyH/O heart artery stent 1 Jennifer Gusmana. [address] [place] [address], [id number], . tel:[phone] Specialist : Milind Finch MD, [address] [place] [address], [address]. tel:[phone] cialist: Miya Armendariz MD, [address] [facility] [address], [place], [address]. tel:[phone] cialist: Woodrow Bullock MD, [address] [place] [address], [address]. [phone] erring Provider: Frank Edmonds MD, Family Medicine [address] [place] [address], [address]. tel:[phone] [facility], [address] [place] [address], [address] [place] [address] , tel:[phone] Flex No Information 1 Flex Romeo. [address] [place] [address], [address] [place] [address], . tel:[phone] Referring Provider: Frank Edmonds MD, Family Medicine [address] [place] [address], [address]. tel:[phone] [facility], [address] [place] [address], [address] [place] [address] , tel:[phone] Aurora No Information 0 No Information Referring Provider: Frank Edmonds MD, Family Medicine [address] [place] [address], [address]. tel:[phone] Office/Outpa tient Visit, [facility], [address] [place] [address], [address] [place] [address] , tel: [phone] Flex Dysphagia follow up (chief complaint) Current smokerDysphagia, unspecified typeAnxietyLaryngo pharyngeal reflux (LPR)Mass of epiglottis 0 Flex Romeo. [address] [place] [address], [id number], . tel:[phone] Specialist : Milind Finch MD, [address] [place] [address], [address]. tel:[phone] cialist: Miya Armendariz MD, [address] [place] [address], [address]. tel:[phone] cialist: Woodrow Bullock MD, [address] [place] [address], [address]. tel:[phone] erring Provider: Frank Edmonds MD, Family Medicine [address] [place] [address], [address]. tel:[phone] [facility], [address] [place] [address], [address] [place] [address] , tel:[phone] Patient Portal No Information 0 Jennifer Colón. [address] [place] [address], [address] [place] [address], . tel:[phone] Office/Outpa tient Visit, [facility], [address] [place] [address], [address] [place] [address] , tel:[phone] Simon Dysphagia (chief complaint) Dysphagia, unspecified typeLaryngopharyng eal reflux (LPR)AnxietyMass of epiglottisCurrent smoker 0 No Founder And Chief Executive Officer : Milind Finch MD, [address] [place] [address], [address]. tel:[phone] cialist: Miya Armendariz MD, [address] [place] [address], [address]. tel:[phone] cialist: Woodrow Bullock MD, [address] [place] [address], [address]. tel:[phone] erring Provider: Frank Edmonds MD, Family Medicine [address] [place] [address], [address]. tel:[phone] Office/Outpa tient Visit, [facility], [address] [place] [address], [id number] , tel:[phone] Setzen Facial pain (chief complaint) Headache around the eyesTMJ derangementDeviate d nasal septumReferred otalgia of both ears Aug-0 3-201 8 Renny Capone. [address] [facility], [place], [place], [id number], . tel:[phone] Specialist : Milind Finch MD, [address] [place], [address]. tel:[phone] cialist: Miya Armendariz, [address] [facility] [address], [place], [address]. tel:[phone] cialist: Woodrow Bullock MD, [address] [facility] [address], [place], [address]. tel:[phone] erring Provider: Frank Edmonds MD, Family Medicine [address] [place] [address], [address]. tel:[phone] Family History Family Member Type Diagnosis Age At Onset Father Problem (finding) Heart disease Payers Payer name Insurance type Covered alliance party ID Authoriza tion(s) MEDICARE PART B [id number] Social History Type Description Quantity Date Captured [...] sore throat in the AM. She used [place] yesterday with relief. Stilhaving some difficulty swallowing [...] sore throat in the AM. She used [place] yesterday with relief. 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 Additional information: Was in [facility] ER last week - left arm pain, [...] are variable and intense. She saw an maintenance and engineering manager who told her that her eyes were [...] have a normal upper endoscopy with her control analyst several months ago. I will request [...]
[2024-02-03 11:36] LABS: Anion Gap 17 (12-20); Carbon Dioxide 29 mmol/L (22-29); Chloride 97 mmol/L (96-108); Sodium 140 mmol/L (135-145)
[2024-02-03 11:57] LABS: Potassium 2.8 mmol/L (3.3-5.1)
== END 2024-02-03 09:45 | disposition home or self-care (01) ==
LOC: HO.HMGCLDS 09:44
PROVIDERS: PCP Internal Medicine; Visit Provider Nurse Practitioner Family
DX: E87.6 Hypokalemia (principal)
CPT/HCPCS: 36415; 80051

== ENCOUNTER 2024-02-05 11:58 | Outpatient (REF) | payer MEDICARE, MEDICAID, SELFPAY ==
--- OUTSIDE RECORDS SUMMARY | 2024-02-05 12:01 | XMS_ITS | Data Portability ---
Author Organization [facility] [id number] Address [address] [place] [address] Assessment No assessment recorded. Plan of Treatment Reminders Order Date Submit Date Provider Last Modified By Organization Details Last Modified Time Details Appointments None recorded. Lab None recorded. Referral orthopedic spine surgeon referral 2022 023 [email or web address] Not available 11:04:13 Procedures None recorded. Surgeries None recorded. Imaging None recorded. Medication Orders cyclobenzap rine 10 mg tablet 2022 023 [id number], [address] [place], [place], [id number], 16:54:46 Medrol (Philip) 4 mg tablets in a dose pack 2022 023 [facility] #[id number], [address], [place], [id number], 10:14:12 Patient TargetsNo targets recorded. Patient Instructions Encounter Date Encounter Id Patient Instructions Last Modified By Organization Details Last Modified Time 04/30/2022 [id number] getting back to normal after low back pain: care instructions [email or web address] Not available 04/30/2022 16:54:37 05/07/2022 [id number] getting back to normal after low back pain: care instructions [email or web address] Not available 05/07/2022 10:14:04 Reason for Referral Orthopedic Spine Surgeon Ref erral for Low back pain Referring Physician: Cristian Trujillo, Urgent Care, Encounter Date: 05/07/2022 Problems Name Problem SNOMED Code Status Onset Date Resolution Date Notes Provider Name and Address Organization Details Recorded Time Depressive disorder 09017431 Active 2022 Christy Rama null, [place] - [facility] 3 15:08:17 Migraine 74709484 Active 2022 Christy Rama null, [place] - [facility] 3 15:08:22 Anxiety 97193392 Active 2022 Christy Rama null, [place] - [facility] 3 15:08:27 Neuralgia 99588392 Active 2022 Christy Rama null, [place] - [facility] 3 15:08:45 Hyperlipidemia 57355573 Active 2022 Christy Rama null, [place] - [facility] 3 15:08:57 Notes:3 heart stents Problem Notes None recorded. Procedures Surgical History Date Name Laterality Status Provider Name and Address Organization Details Recorded Time insertion of arterial stent completed Christy [place] - [facility] 04/30/2022 15:10:20 Imaging [...] Updated DateTime 3 165.1 cm 30 kg/m2 91658.6 3 g 99 % 99 % 98 [...] Updated DateTime 3 165.1 cm 30 kg/m2 24918.6 3 g 100 % 100 % 104 /min 18 /min 98.1 [degF] 127 mm[Hg] 79 mm[Hg] Molly Dieudonne PA - [facility] 3 09:28:21 Social History Question Answer Notes LastModified by Spire ion Details LastModified Time Tobacco Smoking Status Former Smoker hCristy gu PA - [facility] 04/30/2022 15:10:10 [...] Diagnosis/Indication Diagnosis SNOMED-CT Code Diagnosis ICD10 Code [id number] [place] [address] [address] 04/30/2022 10:46:51 04/30/2022 16:55:38 Spasm of back muscles 315789340 M62.830 [id number] Cristian Trujillo DO [facility] [address] [address] 05/07/2022 08:21:34 05/07/2022 10:24:41 Low back pain 244966450 M54.50 Health Concerns Section Related Observation LastModified by Organization Detai ls LastModified Time None Recorded Concern Status LastModified by Organization Details LastModified Time None Recorded Advance Directives Directive None Recorded Payers Encounter Date Sequence Insurance Name Policy Number Policy Chaudhry Covered Member ID Chaudhry Member ID Guarantor Name 04/30/2022 1 [place] [employer] Elenita Douglas [id number] Elenita Douglas 05/07/2022 1 [place] [employer] Elenita Douglas [id number] Elenita Douglas Notes Date Note Type [...] they stated was fine. She states her ladle cleaner told her not to take NSAIDS for pain. She says she gets too hyper when she takes prednisone. CHIVO DERAS MD [address] [place], [address], [place] [facility] 04/30/2022 17:01:44 05/07/2022 text/html Back Pain/Injury [...] Cristian Trujillo DO [address] [place], [address], [place] - [facility] 05/07/2022 10:38:57 OBGyn Episode No OBEpisode recorded.
--- OUTSIDE RECORDS SUMMARY | 2024-02-05 12:01 | XMS_ITS | Continuity of Care Document ---
Author Organization [facility] Address [address] [place] [address] Phone Care Team Providers Care Mop Worker Name Role Phone Jennifer BUSH, FACS, [...] Copied on Encounter Office/Outpa tient Visit, Est [facility], [address] [place] [address], [address] [place] [address] , tel:[phone] Rodriguez Lump in throat (chief complaint) sore throat (chief complaint) Mass of epiglottisLaryngop haryngeal reflux (LPR)Dysphagia, unspecified typeAnxietyH/O heart artery stent 1 Jennifer Gusmana. [address] [place] [address], [id number], . tel:[phone] Specialist : Milind Finch MD, [address] [place] [address], [address]. tel:[phone] cialist: Miya Armendariz MD, [address] [facility] [address], [place], [address]. tel:[phone] cialist: Woodrow Bullock MD, [address] [place] [address], [address]. [phone] erring Provider: Frank Edmonds MD, Family Medicine [address] [place] [address], [address]. tel:[phone] [facility], [address] [place] [address], [address] [place] [address] , [phone] Flex No Information 1 Flex Romeo. [address] [place] [address], [address] [place] [address], . tel:[phone] Referring Provider: Frank Edmonds MD, Family Medicine [address] [place] [address], [address]. tel:[phone] [facility], [address] [place] [address], [address] [place] [address] , tel:[phone] Aurora No Information 0 No Information Referring Provider: Frank Edmonds MD, Family Medicine [address] [place] [address], [address]. tel:[phone] Office/Outpa tient Visit, [facility], [address] [place] [address], [address] [place] [address] , tel:[phone] Flex Dysphagia follow up (chief complaint) Current smokerDysphagia, unspecified typeAnxietyLaryngo pharyngeal reflux (LPR)Mass of epiglottis 0 Flex Romeo. [address] [place] [address], [id number], . tel:[phone] Specialist : Milind Finch MD, [address] [place] [address], [address]. tel:[phone] cialist: Miya Armendariz MD, [address] [place] [address], [address]. tel:[phone] cialist: Woodrow Bullock MD, [address] [place] [address], [address]. tel:[phone] erring Provider: Frank Edmonds MD, Family Medicine [address] [place] [address], [address]. tel:[phone] [facility], [address] [place] [address], [address] [place] [address] , tel:[phone] Patient Portal No Information 0 Jennifer Colón. [address] [place] [address], [address] [place] [address], . tel:[phone] Office/Outpa tient Visit, [facility], [address] [place] [address], [address] [place] [address] , tel:[phone] Simon Dysphagia (chief complaint) Dysphagia, unspecified typeLaryngopharyng eal reflux (LPR)AnxietyMass of epiglottisCurrent smoker 0 No Rubber Stamp Assembler : Milind Finch MD, [address] [place] [address], [address]. tel:[phone] cialist: Miya Armendariz MD, [address] [place] [address], [address]. tel:[phone] cialist: Woodrow Bullock MD, [address] [place] [address], [address]. tel:[phone] erring Provider: Frank Edmonds MD, Family Medicine [address] [place] [address], [address]. tel:[phone] Office/Outpa tient Visit, [facility], [address] [place] [address], [id number] , tel:[phone] Setzen Facial pain (chief complaint) Headache around the eyesTMJ derangementDeviate d nasal septumReferred otalgia of both ears Aug-0 3-201 8 Renny Capone. [address] [facility], [place], [place], [id number], . tel:[phone] Specialist : Milind Finch MD, [address] [place], [address]. tel:[phone] cialist: Miya Armendariz, [address] [facility] [address], [place], [address]. tel:[phone] cialist: Woodrow Bullock MD, [address] [facility] [address], [place], [address]. tel:[phone] erring Provider: Frank Edmonds MD, Family Medicine [address] [place] [address], [address]. tel:[phone] Family History Family Member Type Diagnosis Age At Onset Father Problem (finding) Heart disease Payers Payer name Insurance type Covered republican ID Authoriza tion(s) MEDICARE PART B [id number] Social History Type Description Quantity Date Captured [...] sore throat in the AM. She used [place] yesterday with relief. Stilhaving some difficulty swallowing [...] sore throat in the AM. She used [place] yesterday with relief. 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 Additional information: Was in [facility] ER last week - left arm [...] are variable and intense. She saw an wind energy systems installer who told her that her eyes were [...] have a normal upper endoscopy with her electro optics engineer several months ago. I will request records [...]
[2024-02-05 14:30] LABS: Anion Gap 17 (12-20); Blood Urea Nitrogen 8 mg/dL (9-16); Calcium 9.4 mg/dL (8.4-10.2); Carbon Dioxide 27 mmol/L (22-29); Chloride 100 mmol/L (96-108); Estimated Glomerular Filt Rate > 60; Glucose Random 109 mg/dL (60-115); Potassium 3.2 mmol/L (3.3-5.1); Sodium 141 mmol/L (135-145)
== END 2024-02-05 11:59 | disposition home or self-care (01) ==
LOC: HO.HMGCLDS 11:58
PROVIDERS: PCP Internal Medicine; Visit Provider Nurse Practitioner Family
DX: E87.6 Hypokalemia (principal)
CPT/HCPCS: 36415; 80048

== ENCOUNTER 2024-02-07 08:22 | Emergency (ER) | payer MEDICARE, MEDICAID, SELFPAY ==
[2024-02-07 08:23] VITALS: BP 145/116; PULSE 100; RESP 16; TEMP 36.8; O2SAT 97; BMI 18.2
--- OUTSIDE RECORDS SUMMARY | 2024-02-07 08:24 | XMS_ITS | Continuity of Care Document ---
Author Organization [facility] Address [address] [place] [address] Phone Care Team Providers Care Telecom Engineer Name Role Phone Jennifer BUSH, FACS, FAAOA, [...] Copied on Encounter Office/Outpa tient Visit, Est [facility], [address] [place] [address], [address] [place] [address] , tel:[phone] Rodriguez Lump in throat (chief complaint) sore throat (chief complaint) Mass of epiglottisLaryngop haryngeal reflux (LPR)Dysphagia, unspecified typeAnxietyH/O heart artery stent 1 Jennifer Gusmana. [address] [place] [address], [id number], . tel:[phone] Specialist : Milind Finch MD, [address] [place] [address], [address]. tel:[phone] cialist: Miya Armendariz MD, [address] [facility] [address], [place], [address]. tel:[phone] cialist: Woodrow Bullock MD, [address] [place] [address], [address]. [phone] erring Provider: Frank Edmonds MD, Family Medicine [address] [place] [address], [address]. tel:[phone] [facility], [address] [place] [address], [address] [place] [address] , tel:[phone] Flex No Information 1 Flex Romeo. [address] [place] [address], [address] [place] [address], . tel:[phone] Referring Provider: Frank Edmonds MD, Family Medicine [address] [place] [address], [address]. tel:[phone] [facility], [address] [place] [address], [address] [place] [address] , tel:[phone] [place] No Information 0 No Information Referring Provider: Frank Edmonds MD, Family Medicine [address] [place] [address], [address]. tel:[phone] Office/Outpa tient Visit, [facility], [address] [place] [address], [address] [place] [address] , tel:[phone] Flex Dysphagia follow up (chief complaint) Current smokerDysphagia, unspecified typeAnxietyLaryngo pharyngeal reflux (LPR)Mass of epiglottis 0 Flex Romeo. [address] [place] [address], [id number], . tel:[phone] Specialist : Milind Finch MD, [address] [place] [address], [address]. tel:[phone] cialist: Miya Armendariz MD, [address] [place] [address], [address]. tel:[phone] cialist: Woodrow Bullock MD, [address] [place] [address], [address]. tel:[phone] erring Provider: Frank Edmonds MD, Family Medicine [address] [place] [address], [address]. tel:[phone] [facility], [address] [place] [address], [address] [place] [address] , tel:[phone] Patient Portal No Information 0 Jennifer Colón. [address] [place] [address], [address] [place] [address], . tel:[phone] Office/Outpa tient Visit, [facility], [address] [place] [address], [address] [place] [address] , tel:[phone] Simon Dysphagia (chief complaint) Dysphagia, unspecified typeLaryngopharyng eal reflux (LPR)AnxietyMass of epiglottisCurrent smoker 0 No Advertising Coordinator : Milind Finch MD, [address] [place] [address], [address]. tel:[phone] cialist: Miya Armendariz MD, [address] [place] [address], [address]. tel:[phone] cialist: Woodrow Bullock MD, [address] [place] [address], [address]. tel:[phone] erring Provider: Frank Edmonds MD, Family Medicine [address] [place] [address], [address]. tel:[phone] Office/Outpa tient Visit, [facility], [address] [place] [address], [id number] , tel:[phone] Setzen Facial pain (chief complaint) Headache around the eyesTMJ derangementDeviate d nasal septumReferred otalgia of both ears Aug-0 3-201 8 Renny Capone. [address] [facility], [place], [place], [id number], . tel:[phone] Specialist : Milind Finch MD, [address] [place], [address]. tel:[phone] cialist: Miya Armendariz, [address] [facility] [address], [place], [address]. tel:[phone] cialist: Woodrow Bullock MD, [address] [facility] [address], [place], [address]. tel:[phone] erring Provider: Frank Edmonds MD, Family Medicine [address] [place] [address], [address]. tel:[phone] Family History Family Member Type Diagnosis Age At Onset Father Problem (finding) Heart disease Payers Payer name Insurance type Covered alliance party ID Authoriza tion(s) MEDICARE PART B [id number] Social History Type Description Quantity Date Captured [...] sore throat in the AM. She used [place] yesterday with relief. Stilhaving some difficulty swallowing [...] sore throat in the AM. She used [place] yesterday with relief. 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 Additional information: Was in [facility] ER last week - left arm [...] are variable and intense. She saw an silk screen etcher who told her that her eyes were [...] have a normal upper endoscopy with her private client advisor several months ago. I will request records [...]
--- OUTSIDE RECORDS SUMMARY | 2024-02-07 08:24 | XMS_ITS | Data Portability ---
Author Organization [facility] [address] Address [address] [place] [address] Assessment No assessment recorded. Plan of Treatment Reminders Order Date Submit Date Provider Last Modified By Organization Details Last Modified Time Details Appointments None recorded. Lab None recorded. Referral orthopedic spine surgeon referral 2022 023 [email or web address] Not available 11:04:13 Procedures None recorded. Surgeries None recorded. Imaging None recorded. Medication Orders cyclobenzap rine 10 mg tablet 2022 023 [id number], [address], [place], [id number], 16:54:46 Medrol (Philip) 4 mg tablets in a dose pack 2022 023 [facility][id number], [address], [place], [id number], 10:14:12 Patient TargetsNo targets recorded. Patient Instructions Encounter Date Encounter Id Patient Instructions Last Modified By Organization Details Last Modified Time 04/30/2022 [id number] getting back to normal after low back pain: care instructions [email or web address] Not available 04/30/2022 16:54:37 05/07/2022 [id number] getting back to normal after low back pain: care instructions [email or web address] Not available 05/07/2022 10:14:04 Reason for Referral Orthopedic Spine Surgeon Ref erral for Low back pain Referring Physician: Cristian Trujillo, Urgent Care, Encounter Date: 05/07/2022 Problems Name Problem SNOMED Code Status Onset Date Resolution Date Notes Provider Name and Address Organization Details Recorded Time Depressive disorder 58219519 Active 2022 Christy Rama null, [place] - [facility] 3 15:08:17 Migraine 77416155 Active 2022 Christy Rama null, PA - [facility] 3 15:08:22 Anxiety 71503838 Active 2022 Christy Rama null, PA - [facility] 3 15:08:27 Neuralgia 29883588 Active 2022 Christy Rama null, PA - [facility] 3 15:08:45 Hyperlipidemia 46043603 Active 2022 Christy Rama null, PA - [facility] 3 15:08:57 Notes:3 heart stents Problem Notes None recorded. Procedures Surgical History Date Name Laterality Status Provider Name and Address Organization Details Recorded Time insertion of arterial stent completed Christy [place] PA - [facility] 04/30/2022 15:10:20 Imaging [...] Updated DateTime 3 165.1 cm 30 kg/m2 10369.6 3 g 99 % 99 % 98 [...] Updated DateTime 3 165.1 cm 30 kg/m2 32489.6 3 g 100 % 100 % 104 /min 18 /min 98.1 [degF] 127 mm[Hg] 79 mm[Hg] Molly Dieudonne PA - [facility] 3 09:28:21 Social History Question Answer Notes LastModified by [employer] ion Details LastModified Time Tobacco Smoking Status [...] Diagnosis/Indication Diagnosis SNOMED-CT Code Diagnosis ICD10 Code [id number] [place] [address] [address] 04/30/2022 10:46:51 04/30/2022 16:55:38 Spasm of back muscles 173966033 M62.830 [id number] Cristian Trujillo DO [facility] [address] [address] 05/07/2022 08:21:34 05/07/2022 10:24:41 Low back pain 299882209 M54.50 Health Concerns Section Related Observation LastModified by Organization Detai ls LastModified Time None Recorded Concern Status LastModified by Organization Details LastModified Time None Recorded Advance Directives Directive None Recorded Payers Encounter Date Sequence Insurance Name Policy Number Policy Chaudhry Covered Member ID Chaudhry Member ID Guarantor Name 04/30/2022 1 [place] [employer] Elenita Douglas [id number] Elenita Douglas 05/07/2022 1 [place] [employer] Elenita Douglas [id number] Elenita Douglas Notes Date Note Type [...] they stated was fine. 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 She says she gets too hyper when she takes prednisone. CHIVO DERAS MD [address] [place], [address], PA [facility] 04/30/2022 17:01:44 05/07/2022 text/html Back Pain/Injury [...] Cristian Trujillo DO [address] [place], [address], [place] - [facility] 05/07/2022 10:38:57 OBGyn Episode No OBEpisode recorded.
--- NOTE | 2024-02-07 08:35 | ED_ITS ---
HPI - General Adult General Chief complaint: Nausea/Vomiting/Diarrhea Stated complaint: n/v/d Time Seen by Provider: 02/07/24 08:35 History of Present Illness ED Provider: Anila LEMONS narrative: The patient is a 53-year-old female who has been having problems with hypokalemia over the last few months. She has been taking increasing doses of supplemental potassium at home prescribed by her primary care doctor. Over the last 3 days she has had a lot of nausea, vomiting, and diarrhea. Also reports that she has lost approximately 20 lb over the last couple of months. This was unintentional weight loss. The patient says that she has a lot of esophageal pain from all the vomiting she has been doing. She feels that she has some abdominal cramping but no real abdominal pain. No definite fevers. Related Data Home Medications ?Medication ?Instructions ?Recorded ?Confirmed paroxetine HCl 20 mg tablet 40 mg PO DAILY 06/14/23 01/30/24 Previous Rx's ?Medication ?Instructions ?Recorded solifenacin 10 mg tablet 10 mg PO DAILY Urine incontinence 10/10/23 #30 tabs omeprazole 20 mg capsule,delayed 20 mg PO DAILY #90 caps 12/03/23 release atorvastatin 80 mg tablet 80 mg PO QPM #90 tabs 12/14/23 cyclobenzaprine 5 mg tablet 5 mg PO Q8H PRN Muscle Spasm #15 12/15/23 tabs clopidogrel 75 mg tablet 75 mg PO DAILY #90 tabs 01/22/24 oxycodone 5 mg tablet 5 mg PO Q8H PRN pain 30 days #90 01/30/24 tabs potassium chloride 10 mEq 10 meq PO BID PRN low potassium 02/03/24 tablet,extended release #20 tabs ondansetron HCl 4 mg tablet 4 mg PO ONCE PRN nausea and 02/06/24 vomiting 90 days #90 tabs magnesium oxide 400 mg (241.3 mg 400 mg PO DAILY #14 tabs 02/07/24 magnesium) tablet potassium chloride 10 mEq 20 meq (2 x 10 mEq) PO BID 2 weeks 02/07/24 capsule,extended release #56 caps Allergies Allergy/AdvReac Type Severity Reaction Status Date / Time cefazolin [From Anc] Allergy Mild Swelling Verified 02/07/24 08:26 Review of Systems 2 Review of Systems: Yes all other systems are reviewed and are negative PMFSH Past Medical History Medical History Obsessive compulsive disorder Agoraphobia Personality disorder Anxiety and depression 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) Surgical History Hx of dilation and curettage Hx of knee surgery Hx of tonsillectomy Family History Family History Father Heart attack Hypertension Mother Hypertension Social History Social History Household Members Other:: mom Housing: Condominium Alcohol intake: never Patient Tobacco Use Status: Current everyday Tobacco user Tobacco use type: Cigarette Years Smoked: 32 years Smoked in Last 30 Days: No e-Cigarette/Vaping Use: Never Used Second Hand Smoke Exposure: No Use of substances other than those prescribed or required for medical reasons: No Advance Directives: No Advance Directives Information Provided: Yes Do you have a plan to hurt others: No Plan Patient : No service: No Current occupational status: disabled Current occupational exposures/hazards: No Sexual orientation: Straight/Heterosexual Gender identity: Female Cognitive needs: No Hearing needs: No Vision needs: Yes Physical Exam ED Vital Signs: Vital Signs - 24 hr 02/07/24 10:34 02/07/24 12:05 02/07/24 14:22 Temperature 98.1 F Pulse Rate 85 60 83 Respiratory Rate 16 15 16 Blood Pressure 154/84 H 154/97 H 172/78 H Pulse Oximetry 96 99 99 Oxygen Delivery Method Room Air Room Air 02/07/24 15:36 Temperature 98.1 F Pulse Rate 83 Respiratory Rate 18 Blood Pressure 172/78 H Pulse Oximetry 99 Oxygen Delivery Method Room Air BMI result Body Mass Index 18.2 Const Other: The patient is awake and alert. Mental status is clear. She does not appear in acute distress. HENMT Other: The face symmetrical. Mucous membranes are moist. Eyes General: appearance normal, both eyes and all related structures Conjunctivae: conjunctivae normal Sclerae: sclerae normal EOM: EOMs intact bilaterally Neck Neck: Yes full ROM Resp Effort & Inspection: normal respiratory effort Auscultation: clear to auscultation bilaterally Cardio Rate: regular rate Rhythm: regular rhythm Heart sounds: S1 normal heart sound present and S2 normal heart sound present GI Other: the abdomen is flat, soft, and nontender. Skin Other: The skin is dry and unremarkable Neuro Other: the patient is awake, alert, oriented, appropriate. Mental status is normal. Cranial nerves are grossly intact. She moves her extremities normally and appropriately. Extrem Other: No peripheral edema Medications Administered Discontinued Medications Generic Name Dose Route Start Last Admin Trade Name Freq PRN Reason Stop Dose Admin Al Hydroxide/Mg Hydroxide 30 ml 02/07/24 09:01 02/07/24 10:14 Magnesium Hydrox/Alum Hydrox 30 Ml Oral.Susp PO 02/07/24 09:02 30 ml ONCE ONE Administration Diphenhydramine HCl 25 mg 02/07/24 09:15 02/07/24 10:14 Diphenhydramine Hcl 50 Mg/Ml Vial IVPUSH 02/07/24 09:16 25 mg ONCE ONE Administration Famotidine 20 mg 02/07/24 09:15 02/07/24 10:14 Famotidine/Pf 20 Mg/2 Ml Vial IVPUSH 02/07/24 09:16 20 mg ONCE ONE Administration Lactated Ringer's 1,000 mls @ 999 mls/hr 02/07/24 09:00 02/07/24 11:55 Lr IV 02/07/24 10:00 Infused .Q1H1M ENEDINA Infusion Magnesium Sulfate 2 gm in 50 mls @ 25 mls/hr 02/07/24 10:16 02/07/24 12:58 Magnesium Sulfate/H2o IV 02/07/24 12:15 Infused ONCE ONE Infusion Potassium Chloride/Sodium Chloride 40 meq in 1,000 mls @ 250 mls/hr 02/07/24 10:30 02/07/24 11:59 Kcl 40 Meq In 0.9 % Sodium Chl IV 02/07/24 14:29 250 mls/hr .Q4H ENEDINA Administration Metoclopramide HCl 10 mg 02/07/24 09:15 02/07/24 10:14 Metoclopramide Hcl 10 Mg/2 Ml Vial IVPUSH 02/07/24 09:16 10 mg ONCE ONE Administration Ondansetron HCl 4 mg 02/07/24 14:56 02/07/24 15:04 Ondansetron Odt 4 Mg Tab.Rapdis TRANSLINGU 02/07/24 14:57 4 mg ONCE ONE Administration Potassium Chloride 20 meq 02/07/24 11:02 02/07/24 11:21 Potassium Chloride Er 20 Meq Tab.Er.Prt PO 02/07/24 11:03 20 meq ONCE ONE Administration Potassium Chloride 20 meq 02/07/24 12:38 02/07/24 13:01 Potassium Chloride Er 20 Meq Tab.Er.Prt PO 02/07/24 12:39 20 meq ONCE ONE Administration Medical Decision Making Medical Decision Making [facility] Narrative: The patient is a 53-year-old female who has been having problems with hypokalemia for the last few months. She has been on supplemental potassium. She also describes unintentional weight loss. She presents with 3 days of nausea, vomiting, and diarrhea. She says she has been unable to tolerate her oral potassium supplements. Today the patient has a benign abdomen and an otherwise unremarkable physical exam. Her EKG does not show any concerning findings. her potassium today was 2.6. The patient was given IV magnesium, IV potassium, and IV antiemetics. Her nausea improved and she was also given oral potassium. She was observed for several hours. Ultimately she found the IV with potassium infusing too uncomfortable to tolerate. She requested her IV be discontinued. We repeated her metabolic panel. Her potassium had come up to 3.4. She had tolerated her oral potassium and did not seem to have significant ongoing nausea or vomiting. She looks well enough for outpatient treatment. She will be prescribed anti emetics as well as supplemental oral potassium. She should stay in touch with her regular doctor to continue working on the problems she has been having with her potassium and her weight loss. Lab Data 02/07/24 09:25 02/07/24 14:03 Labs: Lab Results 02/07/24 02/07/24 02/07/24 Range/Units 09:25 09:36 14:03 WBC 6.3 (4.8-10.8) X10*3/uL RBC 4.17 L (4.20-5.50) X10*6/uL Hgb 14.8 (12.0-16.0) g/dl Hct 41.7 (37.0-47.0) % MCV 100.0 H (80.0-98.0) fL MCH 35.5 H (27.0-33.0) pg MCHC 35.5 H (31.0-35.0) g/dl RDW 18.8 H (11.0-16.0) % Plt Count 226 D (160-400) X10*3/uL MPV 9.9 (9.4-12.3) fL Immature Gran % (Auto) 0.2 (0.0-0.4) % Neut % (Auto) 67.6 (45-73) % Lymph % (Auto) 22.0 (20-40) % [place] % (Auto) 8.6 (2-11) % Eos % (Auto) 1.0 (0-4) % Baso % (Auto) 0.6 (0-2) % Lymph # (Auto) 1.4 (1.2-4.9) X10*3/uL [place] # (Auto) 0.5 (0.1-1.2) X10*3/uL Eos # (Auto) 0.1 (0.0-0.4) X10*3/uL Baso # (Auto) 0.0 (0.0-0.2) X10*3/uL Abs Immat Gran (auto) 0.01 (0.00-0.03) X10*3/uL Absolute Neuts (auto) 4.3 (2.0-8.3) x10*3/uL Absolute Nucleated RBC 0.000 (0.0-0.012) X10*3/uL Nucleated RBC % (auto) 0.0 (0.0-0.2) /100WBC Sodium 140 140 (135-145) mmol/L Potassium 2.6 L* 3.4 D (3.3-5.1) mmol/L Chloride 98 104 (96-108) mmol/L Carbon Dioxide 29 25 (22-29) mmol/L Anion Gap 16 14 (12-20) BUN 7 L 6 L (9-16) mg/dL Creatinine 0.64 0.59 (0.5-1.4) mg/dL Estim Creat Clear Calc 81.5 88.5 Estimated GFR > 60 > 60 Random Glucose 94 94 (60-115) mg/dL Calcium 9.8 8.9 D (8.4-10.2) mg/dL Magnesium 1.5 L (1.6-2.6) mg/dL Total Bilirubin 1.1 H (0.0-1.0) mg/dL Direct Bilirubin 0.3 (0.0-0.5) mg/dL AST 37 H (5-31) U/L ALT 13 (0-31) U/L Alkaline Phosphatase 92 (39-117) U/L C-Reactive Protein 0.13 (< or = 0.50) mg/dL Total Protein 6.5 (6.5-8.0) g/dL Albumin 3.9 (3.5-5.0) g/dL Lipase 9 (8-78) U/L Beta HCG, Quant 3 mIU/mL Urine Color Dark Yellow Urine Appearance Cloudy Urine pH 8.5 (5.0-9.0) Ur Specific [place] 1.020 (1.005-1.025) Urine Protein 30 (1+) H (Neg-Trace) mg/dL Urine Glucose (UA) Negative (Negative) mg/dL Urine Ketones Trace (Negative) mg/dL Urine Blood Moderate (2+) H (Negative) Urine Nitrite Negative (Negative) Ur Leukocyte Esterase Trace H (Negative) Urine RBC >20 H (0-2) /HPF Urine WBC 0-5 (0-5) /HPF Ur Squamous Epith Cells 6-10 (0-2) /HPF Urine Bacteria 1+ (None Seen) Hyaline Casts 11-20 (0-2) /LPF Granular Casts Present Independent Interpretation I performed an independent interpretation of an: EKG Interpretation: EKG at 09:02 shows sinus rhythm with short ME at 77 beats per minute. QTC interval is 452. No definite acute ischemic changes. Discharge Plan Discharge Clinical Impression: Acute hypokalemia, Nausea, vomiting, and diarrhea Patient Disposition: Home, Self-Care Additional Instructions: Tomorrow please pickling grader your prescription for ondansetron (Zofran) which you may use as needed for nausea. I have also sent a prescription for additional supplemental potassium. Please take the potassium as prescribed, 20 mg two times a day. I have also sent a prescription for magnesium. Magnesium can help with potassium absorption. Take the magnesium once a day. If you have ongoing diarrhea you may use [id number] loperamide (Imodium) as needed. Please stay in touch with your regular doctor's office to continue to monitor all of the symptoms you has been experiencing recently. Make a prompt follow up appointment. Return to the emergency room if worse. Prescriptions: New potassium chloride 10 mEq capsule, extended release 20 meq PO BID 14 Days Qty: 56 0RF magnesium oxide 400 mg (241.3 mg magnesium) tablet 400 mg PO DAILY Qty: 14 0RF No Action omeprazole 20 mg capsule,delayed release(DR/EC) 20 mg PO DAILY Qty: 90 0RF atorvastatin 80 mg tablet 80 mg PO QPM Qty: 90 0RF Rx Instructions: Must call for follow up appt for more refills clopidogrel 75 mg tablet 75 mg PO DAILY Qty: 90 0RF Rx Instructions: Please call and schedule appt you are over due. potassium chloride 10 mEq tablet extended release 10 meq PO BID PRN (Reason: low potassium) Qty: 20 3RF ondansetron HCl 4 mg tablet 4 mg PO ONCE PRN (Reason: nausea and vomiting) 90 Days Qty: 90 0RF paroxetine HCl 20 mg tablet 40 mg PO DAILY solifenacin 10 mg tablet 10 mg PO DAILY Qty: 30 6RF cyclobenzaprine 5 mg tablet 5 mg PO Q8H PRN (Reason: Muscle Spasm) Qty: 15 0RF oxycodone 5 mg tablet 5 mg PO Q8H PRN (Reason: pain) 30 Days Qty: 90 0RF Rx Instructions: Partial Fill upon patient request. Interventions: ED Discharge Assessment Last Done: 02/07/24 15:36 Discharge Date/Time: 02/07/24 15:37 Print Language: Malawian
--- OUTSIDE RECORDS SUMMARY | 2024-02-07 08:49 | XMS_ITS | Continuity of Care Document ---
Author Organization [facility] Address [address] [place] [address] Phone Care Team Providers Care Manager Retail Name Role Phone Jennifer BUSH, FACS, FAAOA, [...] Copied on Encounter Office/Outpa tient Visit, [facility], [address] [place] [address], [address] [place] [address] , tel:[phone] Rodriguez Lump in throat (chief complaint) sore throat (chief complaint) Mass of epiglottisLaryngop haryngeal reflux (LPR)Dysphagia, unspecified typeAnxietyH/O heart artery stent 1 Jennifer Gusmana. [address] [place] [address], [id number], . tel:[phone] Specialist : Milind Finch MD, [address] [place] [address], [address]. tel:[phone] cialist: Miya Armendariz MD, [address] [facility] [address], [place], [address]. tel:[phone] cialist: Woodrow Bullock MD, [address] [place] [address], [address]. [phone] erring Provider: Frank Edmonds MD, Family Medicine [address] [place] [address], [address]. tel:[phone] [facility], [address] [place] [address], [address] [place] [address] , tel:[phone] Flex No Information 1 Flex Romeo. [address] [place] [address], [address] [place] [address], . tel:[phone] Referring Provider: Frank Edmonds MD, Family Medicine [address] [place] [address], [address]. tel:[phone] [facility], [address] [place] [address], [address] [place] [address] , tel:[phone] [place] No Information 0 No Information Referring Provider: Frank Edmonds MD, Family Medicine [address] [place] [address], [address]. tel:[phone] Office/Outpa tient Visit, [facility], [address] [place] [address], [address] [place] [address] , tel:[phone] Flex Dysphagia follow up (chief complaint) Current smokerDysphagia, unspecified typeAnxietyLaryngo pharyngeal reflux (LPR)Mass of epiglottis 0 Flex Romeo. [address] [place] [address], [id number], . tel:[phone] Specialist : Milind Finch MD, [address] [place] [address], [address]. tel:[phone] cialist: Miya Armendariz MD, [address] [place] [address], [address]. tel:[phone] cialist: Woodrow Bullock MD, [address] [place] [address], [address]. tel:[phone] erring Provider: Frank Edmonds MD, Family Medicine [address] [place] [address], [address]. tel:[phone] [facility], [address] [place] [address], [address] [place] [address] , tel:[phone] Patient Portal No Information 0 Jennifer Colón. [address] [place] [address], [address] [place] [address], . tel:[phone] Office/Outpa tient Visit, [facility], [address] [place] [address], [address] [place] [address] , tel:[phone] Simon Dysphagia (chief complaint) Dysphagia, unspecified typeLaryngopharyng eal reflux (LPR)AnxietyMass of epiglottisCurrent smoker 0 No Business Solutions Analyst : Milind Finch MD, [address] [place] [address], [address]. tel:[phone] cialist: Miya Armendariz MD, [address] [place] [address], [address]. tel:[phone] cialist: Woodrow Bullock MD, [address] [place] [address], [address]. tel:[phone] erring Provider: Frank Edmonds MD, Family Medicine [address] [place] [address], [address]. tel:[phone] Office/Outpa tient Visit, [facility], [address] [place] [address], [id number] , tel:[phone] [place] Facial pain (chief complaint) Headache around the eyesTMJ derangementDeviate d nasal septumReferred otalgia of both ears Aug-0 3-201 8 Renny Capone. [address] [facility], [place], [place], [id number], . tel:[phone] Specialist : Milind Finch MD, [address] [place], [address]. tel:[phone] cialist: Miya Armendariz, [address] [facility] [address], [place], [address]. tel:[phone] cialist: Woodrow Bullock MD, [address] [facility] [address], [place], [address]. tel:[phone] erring Provider: Frank Edmonds MD, Family Medicine [address] [place] [address], [address]. tel:[phone] Family History Family Member Type Diagnosis Age At Onset Father Problem (finding) Heart disease Payers Payer name Insurance type Covered democrat ID Authoriza tion(s) MEDICARE PART B [id number] Social History Type Description Quantity Date Captured [...] sore throat in the AM. She used [place] yesterday with relief. Stilhaving some difficulty swallowing [...] sore throat in the AM. She used [place] yesterday with relief. 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 Additional information: Was in [facility] ER last week - left [...] are variable and intense. She saw an board winder who told her that her eyes were [...] have a normal upper endoscopy with her certified hyperbaric technologist several months ago. I will request records [...]
--- NOTE | 2024-02-07 09:00 | ECG_ITS ---
Test Reason : abd pain Blood Pressure : / mmHG Vent. Rate : 077 BPM Atrial Rate : 077 BPM P-R Int : 104 ms QRS Dur : 082 ms QT Int : 400 ms P-R-T Axes : -05 -05 033 degrees QTc Int : 452 ms Sinus rhythm with short MO Nonspecific ST abnormality Abnormal ECG When compared with ECG of 04-NOV-2023 13:13, Nonspecific T wave abnormality no longer evident in Anterior leads QT has shortened Referred By: Wellington High Electronically Signed By:Sunil Cobb
[2024-02-07 09:30] LABS: MANUAL DIFF FLAG NO
[2024-02-07 09:31] LABS: Basophils Percent Auto 0.6 % (0-2); Eosinophils Absolute Auto 0.1 X10*3/uL (0.0-0.4); Hematocrit 41.7 % (37.0-47.0); Hemoglobin 14.8 g/dl (12.0-16.0); Imm Gran Abs Auto 0.01 X10*3/uL (0.00-0.03); Imm Gran Pct Auto 0.2 % (0.0-0.4); Lymphocytes Absolute Auto 1.4 X10*3/uL (1.2-4.9); Mean Corpuscular HGB Conc 35.5 g/dl (31.0-35.0); Mean Corpuscular Hemoglobin 35.5 pg (27.0-33.0); Mean Platelet Volume 9.9 fL (9.4-12.3); Monocytes Absolute Auto 0.5 X10*3/uL (0.1-1.2); Monocytes Percent Auto 8.6 % (2-11); Neutrophils Absolute Auto 4.3 x10*3/uL (2.0-8.3); Neutrophils Percent Auto 67.6 % (45-73); Platelet Count 226 X10*3/uL (160-400); Red Blood Count 4.17 X10*6/uL (4.20-5.50); Red Cell Distribution Width 18.8 % (11.0-16.0); White Blood Count 6.3 X10*3/uL (4.8-10.8)
[2024-02-07 09:46] LABS: Appearance Urine Cloudy; Color Urine Dark Yellow; Glucose Urine UA Negative (Negative); Leukocyte Esterase Urine Trace (Negative); Nitrite Urine Negative (Negative); PH 8.5 (5.0-9.0); UMIC TRIGGER UACC YES; Urine Blood Moderate (2+) (Negative); Urine Ketones Trace mg/dL (Negative); Urine Protein 30 (1+) mg/dL (Neg-Trace)
--- NOTE | 2024-02-07 10:01 | PC.NURSE ---
Med administration delayed d/t pt being hard stick. Multiple RN attempted to place IV line.
[2024-02-07 10:04] LABS: Bacteria Urine 1+ (None Seen); Granular Casts Urine Present; RBC Urine >20 /HPF (0-2); WBC Urine 0-5 /HPF (0-5)
[2024-02-07 10:09] LABS: Alanine Aminotransferase 13 U/L (0-31); Albumin Level 3.9 g/dL (3.5-5.0); Alkaline Phosphatase 92 U/L (39-117); Anion Gap 16 (12-20); Aspartate Amino Transferase 37 U/L (5-31); Bilirubin Direct 0.3 mg/dL (0.0-0.5); Bilirubin Total 1.1 mg/dL (0.0-1.0); Blood Urea Nitrogen 7 mg/dL (9-16); C Reactive Protein 0.13 mg/dL (< or = 0.50); Calcium 9.8 mg/dL (8.4-10.2); Carbon Dioxide 29 mmol/L (22-29); Chloride 98 mmol/L (96-108); Creatinine Clr Calc Pharmacy 81.5; Estimated Glomerular Filt Rate > 60; Glucose Random 94 mg/dL (60-115); Lipase 9 U/L (8-78); Magnesium 1.5 mg/dL (1.6-2.6); Potassium 2.6 mmol/L (3.3-5.1); Sodium 140 mmol/L (135-145); Total Protein 6.5 g/dL (6.5-8.0)
[2024-02-07] MEDS: Lactated Ringers 1,000 ML 999 ML IV (10:13)
[2024-02-07] MEDS: Magnesium Hydrox/Alum Hydrox 30 ML ORAL.SUSP PO (10:14)
[2024-02-07] MEDS: Metoclopramide HCl 10 MG/2 ML VIAL IVPUSH (10:14)
[2024-02-07] MEDS: diphenhydrAMINE HCL 50 MG/ML VIAL 25 MG IVPUSH (10:14)
[2024-02-07] MEDS: Famotidine/PF 20 MG/2 ML VIAL IVPUSH (10:14)
[2024-02-07 10:20] LABS: HCG Quantitative 3 mIU/mL
[2024-02-07] MEDS: Magnesium Sulfate/H2O 2 GM/50 ML PIGGYBACK IV (10:27)
[2024-02-07 10:34] VITALS: BP 154/84; PULSE 85; RESP 16; O2SAT 96
[2024-02-07] MEDS: Potassium Chloride ER 20 MEQ TAB.ER.PRT PO ×2 (11:21→13:01)
[2024-02-07] MEDS: KCl 40 mEq in 0.9 % Sodium Chl 40 MEQ/1,000 ML IV.SOLN 250 MEQ IV (11:59)
[2024-02-07 12:05] VITALS: BP 154/97; PULSE 60; RESP 15; O2SAT 99
[2024-02-07 14:22] VITALS: BP 172/78; PULSE 83; RESP 16; TEMP 36.7; O2SAT 99
[2024-02-07 14:43] LABS: Anion Gap 14 (12-20); Blood Urea Nitrogen 6 mg/dL (9-16); Calcium 8.9 mg/dL (8.4-10.2); Carbon Dioxide 25 mmol/L (22-29); Chloride 104 mmol/L (96-108); Creatinine Clr Calc Pharmacy 88.5; Estimated Glomerular Filt Rate > 60; Glucose Random 94 mg/dL (60-115); Potassium 3.4 mmol/L (3.3-5.1); Sodium 140 mmol/L (135-145)
[2024-02-07] MEDS: Ondansetron ODT 4 MG TAB.RAPDIS TRANSLINGU (15:04)
[2024-02-07 15:36] VITALS: BP 172/78; PULSE 83; RESP 18; TEMP 36.7; O2SAT 99
== END 2024-02-07 15:37 | disposition home or self-care (01) ==
PROVIDERS: Emergency Provider Emergency Medicine; PCP Internal Medicine
DX: R11.2 Nausea with vomiting, unspecified (principal); R13.10 Dysphagia, unspecified; E87.6 Hypokalemia; R94.31 Abnormal electrocardiogram [ECG] [EKG]; R10.2 Pelvic and perineal pain; R07.0 Pain in throat; Z79.899 Other long term (current) drug therapy
CPT/HCPCS: 36415; 80048; 80076; 81001; 83690; 83735; 84702; 85025; 86140; 93005; 96361; 96374; 96375; 99284; 99285; J1200; J2765; J3475; J3480; J7120

== ENCOUNTER → 2024-02-07 09:00 | Outpatient (BNV) | payer MEDICARE, MEDICAID, SELFPAY | PROVIDERS: Emergency Provider Emergency Medicine; PCP Internal Medicine; Visit Provider Internal Medicine Cardiovascular Disease | DX: I45.6 Pre-excitation syndrome (principal) | CPT/HCPCS: 93010 ==

== ENCOUNTER 2024-02-15 12:19 | Emergency (ER) | payer MEDICARE, MEDICAID, SELFPAY ==
[2024-02-15 12:31] VITALS: BP 128/70; PULSE 95; RESP 19; TEMP 36.6; O2SAT 99; BMI 18.3
--- NOTE | 2024-02-15 12:31 | ED_ITS ---
HPI - General Adult General Chief complaint: Nausea/Vomiting/Diarrhea Stated complaint: stomach issues, diharea Time Seen by Provider: 02/15/24 16:36 Source: patient, RN notes reviewed and old records reviewed Mode of arrival: ambulatory Limitations: no limitations History of Present Illness ED Provider: Gopal HPI narrative: 53-year-old female presents for evaluation of diarrhea that started this morning. She describes the diarrhea as nonbloody. Five episodes of diarrhea today most recently about 30 minutes ago. She was seen here on [facility] about a week ago and her potassium was low at 2.6, so she is concerned about her potassium. She denies any abdominal pain, rectal pain She did not have any fevers. Travel or recent antibiotic use. No other complaints or concerns at this time Related Data Home Medications ?Medication ?Instructions ?Recorded ?Confirmed paroxetine HCl 20 mg tablet 40 mg PO DAILY 06/14/23 01/30/24 Previous Rx's ?Medication ?Instructions ?Recorded solifenacin 10 mg tablet 10 mg PO DAILY Urine incontinence 10/10/23 #30 tabs omeprazole 20 mg capsule,delayed 20 mg PO DAILY #90 caps 12/03/23 release atorvastatin 80 mg tablet 80 mg PO QPM #90 tabs 12/14/23 cyclobenzaprine 5 mg tablet 5 mg PO Q8H PRN Muscle Spasm #15 12/15/23 tabs clopidogrel 75 mg tablet 75 mg PO DAILY #90 tabs 01/22/24 oxycodone 5 mg tablet 5 mg PO Q8H PRN pain 30 days #90 01/30/24 tabs potassium chloride 10 mEq 10 meq PO BID PRN low potassium 02/03/24 tablet,extended release #20 tabs ondansetron HCl 4 mg tablet 4 mg PO ONCE PRN nausea and 02/06/24 vomiting 90 days #90 tabs magnesium oxide 400 mg (241.3 mg 400 mg PO DAILY #14 tabs 02/07/24 magnesium) tablet potassium chloride 10 mEq 20 meq (2 x 10 mEq) PO BID 2 weeks 02/07/24 capsule,extended release #56 caps Allergies Allergy/AdvReac Type Severity Reaction Status Date / Time cefazolin [From [facility]] Allergy Mild Swelling Verified 02/15/24 12:33 Review of Systems 2 Constitutional: Constitutional: Denies body ache(s), Denies chills, Denies fever(s) and Reports malaise ENT: Denies vertigo and Denies dizziness Cardiovascular: Cardiovascular: Denies chest pain and Denies dyspnea Respiratory: Respiratory: Denies cough and Denies dyspnea Gastrointestinal: Gastrointestinal: Denies abdominal pain, Reports diarrhea, Reports loose stools, Reports nausea and Denies vomiting Musculoskeletal: Musculoskeletal: Denies back pain Integumentary/Breasts: Skin/Breast: Denies rash Neurologic: Denies vertigo and Denies dizziness PMFSH Past Medical History Medical History Obsessive compulsive disorder Agoraphobia Personality disorder Anxiety and depression 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) Surgical History Hx of dilation and curettage Hx of knee surgery Hx of tonsillectomy Family History Family History Father Heart attack Hypertension Mother Hypertension Social History Social History Household Members Other:: mom Housing: Condominium Alcohol intake: never Patient Tobacco Use Status: Current everyday Tobacco user Tobacco use type: Cigarette Years Smoked: 32 years e-Cigarette/Vaping Use: Never Used Second Hand Smoke Exposure: No Advance Directives: No Advance Directives Information Provided: No Do you have a plan to hurt others: No Plan service: No Current occupational status: disabled Current occupational exposures/hazards: No Sexual orientation: Straight/Heterosexual Gender identity: Female Cognitive needs: No Hearing needs: No Vision needs: Yes Physical Exam ED Vital Signs: Vital Signs - 24 hr 02/15/24 12:31 02/15/24 16:17 02/15/24 17:09 Temperature 98 F 98.0 F 98.0 F Pulse Rate 95 67 67 Respiratory Rate 19 16 16 Blood Pressure 128/70 154/78 H 154/78 H Pulse Oximetry 99 99 99 Oxygen Delivery Method Room Air Room Air Room Air BMI result Body Mass Index 18.3 Const General: healthy appearing, comfortable, no acute distress, alert and awake Nutritional Appearance: well nourished Orientation/consciousness: patient oriented x3 HENMT Head: Yes normocephalic and Yes atraumatic Eyes Eyelids: Yes eyelids normal Conjunctivae: conjunctivae normal Sclerae: sclerae normal Corneas: corneas normal Pupils: Equal, round and reactive pupils present EOM: EOMs intact bilaterally Neck Neck: Yes full ROM Resp Effort & Inspection: normal respiratory effort, able to speak in complete sentences and not labored Cardio Rate: regular rate Rhythm: regular rhythm GI Inspection: No distended Palpation (GI): Soft to palpation, not firm, nontender, no guarding and not rigid Skin General skin exam: elasticity normal Neuro General: patient oriented x3 Cranial nerves: Yes Equal, round and reactive pupils present and Yes Bilaterally intact EOM present Cognition (Neuro): normal cognition Extrem Other: Moving all extremities well without any obvious deformities Course Course Course Narrative: 53 yo female with PMH of hypokalemia, UTI, chronic pain syndrome, RLS syndrome, CAD, depression, chronic intestinal issues, here with c/o mild abdominal discomfort, no fevers, copious amounts of diarrhea, very nauseated has not taken any medications. Patient has been dealing with this illness for a couple of weeks. No recent stool studies, prior GI workup. Will obtain basic labs, stool studies, UA. Steady gait, non acute abdomen this is a RAPID medical screening exam the rest of the history and physical exam is to be done by the main provider. Medical Decision Making Medical Decision Making [facility] Narrative: 53-year-old female presents for evaluation of nonbloody diarrhea. She has no abdominal pain or tenderness on exam. Her vital signs are stable. She was hypokalemic on at 2.6, however her potassium today is 4.3. Given the patient has no abdominal pain or tenderness, I do not see any indication for emergent imaging at this time. There was no leukocytosis either. The patient is not septic. The patient had C diff test that was negative. She is quite well appearing and stable for discharge at this time. I have a low suspicion for surgical pathology Differential Diagnosis Differential Diagnoses: The differential diagnosis associated with the presentation includes Colitis Diverticulitis Gastroenteritis Diarrhea Hypokalemia Lab Data [facility] Lab Attestation statement: I reviewed the patient's lab results. No leukocytosis or anemia. Normal platelet count. No electrolyte abnormalities warranting intervention. C diff negative 02/15/24 13:25 02/15/24 13:26 Labs: Lab Results 02/15/24 02/15/24 02/15/24 Range/Units 13:25 13:26 13:35 WBC 5.9 (4.8-10.8) X10*3/uL RBC 4.17 L (4.20-5.50) X10*6/uL Hgb 14.8 (12.0-16.0) g/dl Hct 43.6 (37.0-47.0) % MCV 104.6 H (80.0-98.0) fL MCH 35.5 H (27.0-33.0) pg MCHC 33.9 (31.0-35.0) g/dl RDW 19.0 H (11.0-16.0) % Plt Count 235 (160-400) X10*3/uL MPV 10.3 (9.4-12.3) fL Immature Gran % (Auto) 0.5 H (0.0-0.4) % Neut % (Auto) 52.8 (45-73) % Lymph % (Auto) 35.0 (20-40) % [place] % (Auto) 9.8 (2-11) % Eos % (Auto) 0.7 (0-4) % Baso % (Auto) 1.2 (0-2) % Lymph # (Auto) 2.1 (1.2-4.9) X10*3/uL [place] # (Auto) 0.6 (0.1-1.2) X10*3/uL Eos # (Auto) 0.0 (0.0-0.4) X10*3/uL Baso # (Auto) 0.1 (0.0-0.2) X10*3/uL Abs Immat Gran (auto) 0.03 (0.00-0.03) X10*3/uL Absolute Neuts (auto) 3.1 (2.0-8.3) x10*3/uL Absolute Nucleated RBC 0.000 (0.0-0.012) X10*3/uL Nucleated RBC % (auto) 0.0 (0.0-0.2) /100WBC ESR 2 (0-20) MM/HR Sodium 141 (135-145) mmol/L Potassium 4.3 D (3.3-5.1) mmol/L Chloride 106 (96-108) mmol/L Carbon Dioxide 25 (22-29) mmol/L Anion Gap 14 (12-20) BUN 5 L (9-16) mg/dL Creatinine 0.65 (0.5-1.4) mg/dL Estim Creat Clear Calc 80.8 Estimated GFR > 60 Random Glucose 88 (60-115) mg/dL Calcium 8.9 (8.4-10.2) mg/dL Magnesium 2.0 (1.6-2.6) mg/dL Total Bilirubin 0.7 (0.0-1.0) mg/dL Direct Bilirubin 0.2 (0.0-0.5) mg/dL AST 24 (5-31) U/L ALT 8 (0-31) U/L Alkaline Phosphatase 77 (39-117) U/L C-Reactive Protein < 0.10 (< or = 0.50) mg/dL Total Protein 6.1 L (6.5-8.0) g/dL Albumin 3.8 (3.5-5.0) g/dL Lipase 8 (8-78) U/L C. difficile Tox B Gene NEGATIVE (Negative) Tests considered The following testing was considered but not selected: Consider CT imaging of the abdomen pelvis however the patient had no pain or tenderness on exam and reassuring labs and vital signs. This was deferred Discharge Plan Discharge Clinical Impression: Diarrhea Patient Disposition: Home, Self-Care Instructions: Acute Diarrhea (ED) Additional Instructions: Your workup in the emergency department today was reassuring. This includes your blood work. Your potassium today was 4.3 which is well within the normal limits. You may use an [id number]-mje-[id number] antidiarrheal medication to help with your symptoms. Return to the ER if you have worsening symptoms including severe abdominal pain, fevers, persistent diarrhea. Prescriptions: No Action omeprazole 20 mg capsule,delayed release(DR/EC) 20 mg PO DAILY Qty: 90 0RF atorvastatin 80 mg tablet 80 mg PO QPM Qty: 90 0RF Rx Instructions: Must call for follow up appt for more refills clopidogrel 75 mg tablet 75 mg PO DAILY Qty: 90 0RF Rx Instructions: Please call and schedule appt you are over due. potassium chloride 10 mEq tablet extended release 10 meq PO BID PRN (Reason: low potassium) Qty: 20 3RF ondansetron HCl 4 mg tablet 4 mg PO ONCE PRN (Reason: nausea and vomiting) 90 Days Qty: 90 0RF potassium chloride 10 mEq capsule, extended release 20 meq PO BID 14 Days Qty: 56 0RF magnesium oxide 400 mg (241.3 mg magnesium) tablet 400 mg PO DAILY Qty: 14 0RF paroxetine HCl 20 mg tablet 40 mg PO DAILY solifenacin 10 mg tablet 10 mg PO DAILY Qty: 30 6RF cyclobenzaprine 5 mg tablet 5 mg PO Q8H PRN (Reason: Muscle Spasm) Qty: 15 0RF oxycodone 5 mg tablet 5 mg PO Q8H PRN (Reason: pain) 30 Days Qty: 90 0RF Rx Instructions: Partial Fill upon patient request. Interventions: ED Discharge Assessment Last Done: 02/15/24 17:09 Discharge Date/Time: 02/15/24 17:12 Print Language: Cuban
--- OUTSIDE RECORDS SUMMARY | 2024-02-15 13:23 | XMS_ITS | Data Portability ---
Author Organization [facility] [address] Address [address] [place] [address] Assessment No assessment recorded. Plan of Treatment Reminders Order Date Submit Date Provider Last Modified By Organization Details Last Modified Time Details Appointments None recorded. Lab None recorded. Referral orthopedic spine surgeon referral 2022 023 [email or web address] Not available 11:04:13 Procedures None recorded. Surgeries None recorded. Imaging None recorded. Medication Orders cyclobenzap rine 10 mg tablet 2022 023 [id number], [address], [place], [id number], 16:54:46 Medrol (Philip) 4 mg tablets in a dose pack 2022 023 [facility][id number], [address], [place], [id number], 10:14:12 Patient TargetsNo targets recorded. Patient Instructions Encounter Date Encounter Id Patient Instructions Last Modified By Organization Details Last Modified Time 04/30/2022 [id number] getting back to normal after low back pain: care instructions [email or web address] Not available 04/30/2022 16:54:37 05/07/2022 [id number] getting back to normal after low back pain: care instructions [email or web address] Not available 05/07/2022 10:14:04 Reason for Referral Orthopedic Spine Surgeon Ref erral for Low back pain Referring Physician: Cristian Trujillo, Urgent Care, Encounter Date: 05/07/2022 Problems Name Problem SNOMED Code Status Onset Date Resolution Date Notes Provider Name and Address Organization Details Recorded Time Depressive disorder 03691910 Active 2022 Christy [place] null, [place] - [facility] 3 15:08:17 Migraine 15115931 Active 2022 Chrisyt [place] null, [place] - [facility] 3 15:08:22 Anxiety 42126315 Active 2022 Christy Rama null, [place] - [facility] 3 15:08:27 Neuralgia 27236951 Active 2022 Christy [place] null, [place] - [facility] 3 15:08:45 Hyperlipidemia 44710476 Active 2022 Christy Rama null, [place] - [facility] 3 15:08:57 Notes:3 heart stents Problem Notes None recorded. Procedures Surgical History Date Name Laterality Status Provider Name and Address Organization Details Recorded Time insertion of arterial stent completed Christy [place] PA - [facility] 04/30/2022 15:10:20 Imaging [...] Updated DateTime 3 165.1 cm 30 kg/m2 41814.6 3 g 99 % 99 % 98 [...] Updated DateTime 3 165.1 cm 30 kg/m2 40229.6 3 g 100 % 100 % 104 /min 18 /min 98.1 [degF] 127 mm[Hg] 79 mm[Hg] Molly Dieudonne PA - [facility] 3 09:28:21 Social History Question Answer Notes LastModified by [employer] ion Details LastModified Time Tobacco Smoking Status [...] Diagnosis/Indication Diagnosis SNOMED-CT Code Diagnosis ICD10 Code [id number] [place] [address] [id number] 04/30/2022 10:46:51 04/30/2022 16:55:38 Spasm of back muscles 320775178 M62.830 [id number] Cristian Trujillo DO [facility] [address] [address] 05/07/2022 08:21:34 05/07/2022 10:24:41 Low back pain 152217756 M54.50 Health Concerns Section Related Observation LastModified by Organization Detai ls LastModified Time None Recorded Concern Status LastModified by Organization Details LastModified Time None Recorded Advance Directives Directive None Recorded Payers Encounter Date Sequence Insurance Name Policy Number Policy Chaudhry Covered Member ID Chaudhry Member ID Guarantor Name 04/30/2022 1 [place] [employer] Elenita Douglas [id number] Elenita Douglas 05/07/2022 1 [place] [employer] Elenita Douglas [id number] Elenita Douglas Notes Date Note Type [...] they stated was fine. She states her leather skinner told her not to take NSAIDS for pain. She says she gets too hyper when she takes prednisone. CHIVO DERAS MD [address] [place], [address], [place] [facility] 04/30/2022 17:01:44 05/07/2022 text/html Back Pain/Injury [...] Cristian Trujillo DO [address] [place], [address], [place] - [facility] 05/07/2022 10:38:57 OBGyn Episode No OBEpisode recorded.
--- OUTSIDE RECORDS SUMMARY | 2024-02-15 13:23 | XMS_ITS | Continuity of Care Document ---
Author Organization [facility] Address [address] [place] [address] Phone Care Team Providers Care Supervisor Pipe Joints Name Role Phone Jennifer BUSH, FACS, FAAOA, Kaatrzyna Unavailable Un available Allergies, Adverse Reactions, Alerts [...] Copied on Encounter Office/Outpa tient Visit, Est [facility], [address] [place] [address], [address] [place] [address] , tel:[phone] Rodriguez Lump in throat (chief complaint) sore throat (chief complaint) Mass of epiglottisLaryngop haryngeal reflux (LPR)Dysphagia, unspecified typeAnxietyH/O heart artery stent 1 Jennifer Gusmana. [address] [place] [address], [id number], . tel:[phone] Specialist : Milind Finch MD, [address] [place] [address], [address]. tel:[phone] cialist: Miya Armendariz MD, [address] [facility] [address], [place], [address]. tel:[phone] cialist: Woodrow Bullock MD, [address] [place] [address], [address]. [phone] erring Provider: Frank Edmonds MD, Family Medicine [address] [place] [address], [address]. tel:[phone] [facility], [address] [place] [address], [address] [place] [address] , tel:[phone] Flex No Information 1 Flex Romeo. [address] [place] [address], [address] [place] [address], . tel:[phone] Referring Provider: Frank Edmonds MD, Family Medicine [address] [place] [address], [address]. tel:[phone] [facility], [address] [place] [address], [address] [place] [address] , tel:[phone] Aurora No Information 0 No Information Referring Provider: Frank Edmonds MD, Family Medicine [address] [place] [address], [address]. tel:[phone] Office/Outpa tient Visit, [facility], [address] [place] [address], [address] [place] [address] , tel:[phone] Flex Dysphagia follow up (chief complaint) Current smokerDysphagia, unspecified typeAnxietyLaryngo pharyngeal reflux (LPR)Mass of epiglottis 0 Flex Romeo. [address] [place] [address], [id number], . tel:[phone] Specialist : Milind Finch MD, [address] [place] [address], [address]. tel:[phone] cialist: Miya Armendariz MD, [address] [place] [address], [address]. tel:[phone] cialist: Woodrow Bullock MD, [address] [place] [address], [address]. tel:[phone] erring Provider: Frank Edmonds MD, Family Medicine [address] [place] [address], [address]. tel:[phone] [facility], [address] [place] [address], [address] [place] [address] , tel:[phone] Patient Portal No Information 0 Jennifer Colón. [address] [place] [address], [address] [place] [address], . tel:[phone] Office/Outpa tient Visit, [facility], [address] [place] [address], [address] [place] [address] , tel:[phone] Simon Dysphagia (chief complaint) Dysphagia, unspecified typeLaryngopharyng eal reflux (LPR)AnxietyMass of epiglottisCurrent smoker 0 No Senior Sales Operations Manager : Milind Finch MD, [address] [place] [address], [address]. tel:[phone] cialist: Miya Armendariz MD, [address] [place] [address], [address]. tel:[phone] cialist: Woodrow Bullock MD, [address] [place] [address], [address]. tel:[phone] erring Provider: Frank Edmonds MD, Family Medicine [address] [place] [address], [address]. tel:[phone] Office/Outpa tient Visit, [facility], [address] [place] [address], [id number] , tel:[phone] Setzen Facial pain (chief complaint) Headache around the eyesTMJ derangementDeviate d nasal septumReferred otalgia of both ears Aug-0 3-201 8 Renny Capone. [address] [facility], [place], [place], [id number], . tel:[phone] Specialist : Milind Finch MD, [address] [place], [address]. tel:[phone] cialist: Miya Armendariz, [address] [facility] [address], [place], [address]. tel:[phone] cialist: Woodrow Bullock MD, [address] [facility] [address], [place], [address]. tel:[phone] erring Provider: Frank Edmonds MD, Family Medicine [address] [place] [address], [address]. tel:[phone] Family History Family Member Type Diagnosis Age At Onset Father Problem (finding) Heart disease Payers Payer name Insurance type Covered libertarian ID Authoriza tion(s) MEDICARE PART B [id number] Social History Type Description Quantity Date Captured [...] sore throat in the AM. She used Stuart yesterday with relief. Stilhaving some difficulty swallowing [...] sore throat in the AM. She used Stuart yesterday with relief. 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 Additional information: Was in [facility] ER last week - left arm [...] are variable and intense. She saw an fur feeder who told her that her eyes were [...] have a normal upper endoscopy with her improvement lead several months ago. I will request records [...] and instead I will have her trial Akdeem and continue care for her G.I. assessment [...]
[2024-02-15 13:34] LABS: MANUAL DIFF FLAG NO
[2024-02-15 13:38] LABS: Basophils Absolute Auto 0.1 X10*3/uL (0.0-0.2); Basophils Percent Auto 1.2 % (0-2); Eosinophils Percent Auto 0.7 % (0-4); Hematocrit 43.6 % (37.0-47.0); Hemoglobin 14.8 g/dl (12.0-16.0); Imm Gran Abs Auto 0.03 X10*3/uL (0.00-0.03); Imm Gran Pct Auto 0.5 % (0.0-0.4); Lymphocytes Absolute Auto 2.1 X10*3/uL (1.2-4.9); Mean Corpuscular HGB Conc 33.9 g/dl (31.0-35.0); Mean Corpuscular Hemoglobin 35.5 pg (27.0-33.0); Mean Corpuscular Volume 104.6 fL (80.0-98.0); Mean Platelet Volume 10.3 fL (9.4-12.3); Monocytes Absolute Auto 0.6 X10*3/uL (0.1-1.2); Monocytes Percent Auto 9.8 % (2-11); Neutrophils Absolute Auto 3.1 x10*3/uL (2.0-8.3); Neutrophils Percent Auto 52.8 % (45-73); Platelet Count 235 X10*3/uL (160-400); Red Blood Count 4.17 X10*6/uL (4.20-5.50); White Blood Count 5.9 X10*3/uL (4.8-10.8)
[2024-02-15 13:53] LABS: Alanine Aminotransferase 8 U/L (0-31); Albumin Level 3.8 g/dL (3.5-5.0); Alkaline Phosphatase 77 U/L (39-117); Anion Gap 14 (12-20); Aspartate Amino Transferase 24 U/L (5-31); Bilirubin Direct 0.2 mg/dL (0.0-0.5); Bilirubin Total 0.7 mg/dL (0.0-1.0); Blood Urea Nitrogen 5 mg/dL (9-16); C Reactive Protein < 0.10 mg/dL (< or = 0.50); Calcium 8.9 mg/dL (8.4-10.2); Carbon Dioxide 25 mmol/L (22-29); Chloride 106 mmol/L (96-108); Creatinine Clr Calc Pharmacy 80.8; Estimated Glomerular Filt Rate > 60; Glucose Random 88 mg/dL (60-115); Lipase 8 U/L (8-78); Potassium 4.3 mmol/L (3.3-5.1); Sodium 141 mmol/L (135-145); Total Protein 6.1 g/dL (6.5-8.0)
[2024-02-15 14:16] LABS: Erythrocyte Sedimentation Rate 2 MM/HR (0-20)
[2024-02-15 14:27] LABS: CDiff Gene PCR NEGATIVE (Negative)
--- OUTSIDE RECORDS SUMMARY | 2024-02-15 14:29 | XMS_ITS | Continuity of Care Document ---
Author Organization [facility] Address [address] [place] [address] Phone Care Team Providers Care Spinning Bath Patroller Name Role Phone Jennifer BUSH, FACS, FAAOA, [...] Copied on Encounter Office/Outpa tient Visit, Est [facility], [address] [place] [address], [address] [place] [address] , tel:[phone] Rodriguez Lump in throat (chief complaint) sore throat (chief complaint) Mass of epiglottisLaryngop haryngeal reflux (LPR)Dysphagia, unspecified typeAnxietyH/O heart artery stent 1 Jennifer Gusmana. [address] [place] [address], [id number], . tel:[phone] Specialist : Milind Finch MD, [address] [place] [address], [address]. tel:[phone] cialist: Miya Armendariz MD, [address] [facility] [address], [place], [address]. tel:[phone] cialist: Woodrow Bullock MD, [address] [place] [address], [address]. [phone] erring Provider: Frank Edmonds MD, Family Medicine [address] [place] [address], [address]. tel:[phone] [facility], [address] [place] [address], [address] [place] [address] , tel:[phone] Flex No Information 1 Flex Romeo. [address] [place] [address], [address] [place] [address], . tel:[phone] Referring Provider: Frank Edmonds MD, Family Medicine [address] [place] [address], [address]. tel:[phone] [facility], [address] [place] [address], [address] [place] [address] , tel:[phone] [place] No Information 0 No Information Referring Provider: Frank Edmonds MD, Family Medicine [address] [place] [address], [address]. tel:[phone] Office/Outpa tient Visit, [facility], [address] [place] [address], [address] [place] [address] , tel:[phone] Flex Dysphagia follow up (chief complaint) Current smokerDysphagia, unspecified typeAnxietyLaryngo pharyngeal reflux (LPR)Mass of epiglottis 0 Flex Romeo. [address] [place] [address], [id number], . tel:[phone] Specialist : Milind Finch MD, [address] [place] [address], [address]. tel:[phone] cialist: Miya Armendariz MD, [address] [place] [address], [address]. tel:[phone] cialist: Woodrow Bullock MD, [address] [place] [address], [address]. tel:[phone] erring Provider: Frank Edmonds MD, Family Medicine [address] [place] [address], [address]. tel:[phone] [facility], [address] [place] [address], [address] [place] [address] , tel:[phone] Patient Portal No Information 0 Jennifer Colón. [address] [place] [address], [address] [place] [address], . tel:[phone] Office/Outpa tient Visit, [facility], [address] [place] [address], [address] [place] [address] , tel:[phone] Simon Dysphagia (chief complaint) Dysphagia, unspecified typeLaryngopharyng eal reflux (LPR)AnxietyMass of epiglottisCurrent smoker 0 No Cardiology Physician : Milind Finch MD, [address] [place] [address], [address]. tel:[phone] cialist: Miya Armendariz MD, [address] [place] [address], [address]. tel:[phone] cialist: Woodrow Bullock MD, [address] [place] [address], [address]. tel:[phone] erring Provider: Frank Edmonds MD, Family Medicine [address] [place] [address], [address]. tel:[phone] Office/Outpa tient Visit, [facility], [address] [place] [address], [id number] , tel:[phone] Setzen Facial pain (chief complaint) Headache around the eyesTMJ derangementDeviate d nasal septumReferred otalgia of both ears Aug-0 3-201 8 Renny Capone. [address] [facility], [place], [place], [id number], . tel:[phone] Specialist : Milind Finch MD, [address] [place], [address]. tel:[phone] cialist: Miya Armendariz, [address] [facility] [address], [place], [address]. tel:[phone] cialist: Woodrow Bullock MD, [address] [facility] [address], [place], [address]. tel:[phone] erring Provider: Frank Edmonds MD, Family Medicine [address] [place] [address], [address]. 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 Additional information: Was in [facility] ER last week - left [...] are variable and intense. 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 I will request records [...]
[2024-02-15 16:17] VITALS: BP 154/78; PULSE 67; RESP 16; TEMP 36.7; O2SAT 99
[2024-02-15 17:03] LABS: Adenovirus F 40/41 Not Detected (Not Detect.); Astrovirus Not Detected (Not Detect.); Campylobacter Not Detected (Not Detect.); Cryptosporidium Not Detected (Not Detect.); Cyclospora cayetanensis Not Detected (Not Detect.); E. coli EAEC Not Detected (Not Detect.); E. coli EPEC Not Detected (Not Detect.); E. coli ETEC Not Detected (Not Detect.); E. coli STEC Not Detected (Not Detect.); Entamoeba histolytica Not Detected (Not Detect.); Giardia lamblia Not Detected (Not Detect.); Norovirus GI/GII Not Detected (Not Detect.); Plesiomonas shigelloides Not Detected (Not Detect.); Rotavirus A Not Detected (Not Detect.); Salmonella Not Detected (Not Detect.); Sapovirus Not Detected (Not Detect.); Shigella sp./EIEC Not Detected (Not Detect.); Vibrio Not Detected (Not Detect.); Vibrio Cholerae Not Detected (Not Detect.); Yersinia enterocolitica Not Detected (Not Detect.)
[2024-02-15 17:09] VITALS: BP 154/78; PULSE 67; RESP 16; TEMP 36.7; O2SAT 99
--- NOTE | 2024-02-15 17:11 | PC.NURSE ---
Patient left before DC paperwork could be discussed/ given. Patient unavailable to answer further nursing assessment questions as she got up and left after speaking with the PA. Witnessed walking out of dept w/ steady gait.
== END 2024-02-15 17:12 | disposition home or self-care (01) ==
PROVIDERS: Emergency Medicine; Emergency Provider Emergency Medicine; PCP Internal Medicine
DX: R11.2 Nausea with vomiting, unspecified (principal); R19.7 Diarrhea, unspecified; R10.2 Pelvic and perineal pain; F17.210 Nicotine dependence, cigarettes, uncomplicated; Z79.899 Other long term (current) drug therapy
CPT/HCPCS: 36415; 80048; 80076; 83690; 83735; 85025; 85652; 86140; 87493; 87507; 99283

== ENCOUNTER 2024-02-28 08:40 | Outpatient (AMB) | payer MEDICARE, MEDICAID, SELFPAY ==
[2024-02-28 08:42] VITALS: BP 130/80; PULSE 87; O2SAT 98; BMI 19.3
--- NOTE | 2024-02-28 08:42 | MHC.PC.OV ---
Vital Signs 02/28/24 08:42 Height 5 ft 5 in Weight 116 lb BMI 19.3 BP 130/80 Blood Pressure Location Rt brachial Position Sitting Pulse 87 Pulse Source Pulse Oximeter Pulse Oximetry (%) 98 Oxygen Delivery Method Room Air Intake Visit Reasons: Meds review Allergies cefazolin [From Anc] Allergy (Mild, Verified 02/28/24 08:45) Swelling Medication List - Last Reconciled 02/28/24 by Ciro White MD atorvastatin 80 mg PO QPM clopidogrel 75 mg PO DAILY cyclobenzaprine 5 mg PO Q8H PRN magnesium oxide 400 mg PO DAILY omeprazole 20 mg PO DAILY ondansetron HCl 4 mg PO ONCE PRN 90 days oxycodone 5 mg PO Q8H PRN 30 days paroxetine HCl 40 mg PO DAILY potassium chloride ER 20 mEq (2 x 10 mEq) PO BID 2 weeks potassium chloride ER 10 mEq PO BID PRN solifenacin 10 mg PO DAILY Tobacco use date assessed: 02/28/24 Dental Screening Dental Screen Date: 02/28/24 Did you have a dental visit in the last 12 months?: Yes Did you have a dental problem in the last 6 months where you did not have access to dental care?: No Was dental information given to patient?: Patient has dentist HPI Meds review HPI Details - The patient is a 53-year-old female presenting with intercostal neuralgia. She is receiving oxycodone for pain management. Recent reports indicate some improvement in pain. - Potassium deficiency noted, with continued need for management and monitoring. The patient was placed on potassium supplementation following ER visit. Frequent monitoring necessary due to persistent low levels. Has appointment with Nephrology coming up tomorrow - Reports of muscle spasm; current treatment includes cyclobenzaprine. - Present with gastroesophageal reflux disease managed with omeprazole. - Depression managed with psychiatric medications; through psychiatrist, she is also seeing therapist. weight changes and improved appetite noted to have impacted mental health. Significant weight loss in the past due to depression, but recent improvements noted. - Included urinary incontinence for which the patient is taking bladder medication. Problem List - Neuralgia - Potassium deficiency - Muscle spasm - Gastroesophageal reflux disease - Depression - Urinary incontinence - smoking Patient Instructions - Continue taking prescribed magnesium and potassium supplements as advised. - Maintain a diet with three small meals daily, including fruits. - Increase water intake to support overall health. - Monitor bowel movements and continue dietary adjustments to support digestive health. - Attend scheduled appointment with boot trimmer for further evaluation of potassium levels. - Avoid smoking; work towards smoking cessation support. - Continue medication regimen as prescribed and keep medications organized to ensure compliance. Review of Systems - Gastrointestinal: Reports improved stomach condition, absence of nausea or vomiting. - Genitourinary: Reports urinary incontinence. - Musculoskeletal: Reports muscle spasms. - Neurological: Reports neuralgia. - Psychological: Reports depression, improved with lifestyle changes. - General: No fever no chills - Neurological: No headaches no dizziness - Ear nose throat: No sore throat no hearing difficulty no ear pain - Cardiovascular: No syncope, no chest pain, no palpitations - Gastrointestinal: No nausea vomiting or diarrhea - Endocrine: No polyuria polydipsia no heat intolerance - Genitourinary: No dysuria , no blood in urine Physical Exam General: No acute distress HEENT: No acute findings Neck: Supple Respiratory system: Able to talk in full sentences, no audible wheeze cardiovascular: S1-S2 regular in rate and rhythm Gastrointestinal: No pain Extremities: No new findings CHIEF OF HOSPITAL MEDICINE: Alert awake oriented x3 motor sensory intact Skin: Wrinkly, appears to have lost fat PFSH Medical History Obsessive compulsive disorder Agoraphobia Personality disorder Anxiety and depression 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) Surgical History Hx of dilation and curettage Hx of knee surgery Hx of tonsillectomy Family History Father Heart attack Hypertension Mother Hypertension Social History Household Members Other:: mom Housing: Condominium Alcohol intake: never Patient Tobacco Use Status: Current everyday Tobacco user Tobacco use type: Cigarette Years Smoked: 32 years e-Cigarette/Vaping Use: Never Used Second Hand Smoke Exposure: No service: No Current occupational status: disabled Current occupational exposures/hazards: No Sexual orientation: Straight/Heterosexual Gender identity: Female Cognitive needs: No Hearing needs: No Vision needs: Yes Questionnaire PHQ-9 Over the last 2 weeks, how often have you been bothered by any of the following problems? 1. Little interest or pleasure in doing things: not at all 2. Feeling down, depressed, or hopeless: not at all 3. Trouble falling or staying asleep, or sleeping too much: not at all 4. Feeling tired or having little energy: not at all 5. Poor appetite or overeating: not at all 6. Feeling bad about yourself - or that you are a failure or have let yourself or your family down: not at all 7. Trouble concentrating on things, such as reading the newspaper or watching television: not at all 8. Moving or speaking so slowly that other people could have noticed. Or the opposite - being so fidgety or restless that you have been moving around a lot more than usual: not at all 9. Thoughts that you would be better off or of hurting yourself in some way: not at all Total score: 0 Depression Screening Interpretation: Negative Depression Screening Done: Yes 67403 - PHQ-9 Billing: Yes Source: Developed by Drs. Dallas Keller, Cassie Frankel, Glynn Blackwell and colleagues, with an educational kane from [employer]. Thrive Questionnaire Date Thrive assessed: 02/28/24 I am a: Patient What is your living situation today?: I have a steady place to live Within the past 12 months, did the food you bought not last and you didn't have the money to get more?: I choose not to answer this question Within the past 12 months, did you worry whether your food would run out before you got money to buy more?: Never true Do you have trouble paying for medicines?: No Do you have trouble getting transportation to medical appointments?: No Do you have trouble paying your heating and electricity bill?: No Do you have trouble taking care of your child, family member or friend?: No Do you have trouble with day-to-day activities such as bathing, preparing meals, shopping, managing finances, etc.?: No Are you currently unemployed and looking for a job?: No Are you interested in more education?: No Please select the resources that you would like help with: None Currently or been in a relationship where the following occur: No concerns reported THRIVE Score: 0 AUDIT C Alcohol Use Questionnaire (AUDIT-C) 1. How often do you have a drink containing alcohol?: Never 3. How often do you have six or more drinks on one occasion?: Never Total Score: 0 Score Reviewed/Action Taken: Yes FIFI-7 AMB Questionnaire FIFI-7 Date FIFI - 7 assessed: 02/28/24 Feeling nervous, anxious, or on edge: 0 = Not at all Not being able to stop or control worryin = Not at all Worrying too much about different things: 0 = Not at all Trouble relaxin = Not at all Being so restless that it is hard to sit still: 0 = Not at all Becoming easily annoyed or irritable: 0 = Not at all Feeling afraid as if something awful might happen: 0 = Not at all Total FIFI-7 score (0-4 normal; 5-9 mild; 10-14 moderate; 15-21 severe): 0 Source: Developed by Drs. Dallas Keller, Cassie Frankel, Glynn Blackwell and colleagues, with an educational kane from [employer]. FIFI-7 Assessment Billing FIFI-7 Assessment Tool: FIFI-7 Assessment 66194 Physical exam (Primary Care) Vital Signs: Last Vital Signs Pulse 87 02/28/24 08:42 BP 130/80 02/28/24 08:42 Pulse Ox 98 02/28/24 08:42 Oxygen Delivery Method Room Air 02/28/24 08:42 BMI result Body Mass Index 19.3 Tobacco/Smoking Status: Tobacco use Status Tobacco use date assessed 02/28/24 02/28/24 08:46 Patient Tobacco Use Status Current everyday Tobacco 02/28/24 08:46 Tobacco use type Cigarette 02/28/24 08:46 e-Cigarette/Vaping Use Never Used 02/28/24 08:46 PHQ-9: PHQ-9 Score PHQ-9: Total score 0 02/28/24 08:46 Depression Screening Interpretation: Negative Thrive Assessment: Date of Thrive Assessment Date Thrive assessed 02/28/24 02/28/24 08:46 Currently or been in a relationship where the following occur: No concerns reported Coding Level of Care Code Est Pt Level 4 (32979) Diagnoses Electrolyte abnormality E87.8 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 Narcotic dependency, continuous F11.20 Anxiety, generalized F41.1 Recurrent major depressive disorder, in partial remission F33.41 Active/Remission status: in partial remission Impaired fasting blood sugar R73.01 Mixed stress and urge urinary incontinence N39.46 Urinary Incontinence type: mixed stress and urge incontinence Benign head tremor G25.0 Smokes 1 pack of cigarettes per day F17.210 Additional Codes FIFI-7 Assessment Billing - FIFI-7 Assessment Tool: FIFI-7 Assessment 29924 ([id number]) PHQ-9 - 20750 - PHQ-9 Billing: Yes ([id number]) Assessment & Plan Assessment & Plan (1) Electrolyte abnormality: Code(s): E87.8 - Other disorders of electrolyte and fluid balance, not elsewhere classified Category: Medical (2) Intercostal neuralgia: Onset Date: Unknown Code(s): G58.8 - Other specified mononeuropathies Category: Medical (3) Narcotic dependency, continuous: Code(s): F11.20 - Opioid dependence, uncomplicated Category: Medical (4) Anxiety, generalized: Code(s): F41.1 - Generalized anxiety disorder Category: Medical (5) Major depression, recurrent: Code(s): F33.9 - Major depressive disorder, recurrent, unspecified Category: Medical Qualifiers: Active/Remission status: in partial remission Qualified Code(s): F33.41 - Major depressive disorder, recurrent, in partial remission (6) Impaired fasting blood sugar: Code(s): R73.01 - Impaired fasting glucose Category: Medical (7) Urine incontinence: Code(s): R32 - Unspecified urinary incontinence Category: Medical Qualifiers: Urinary Incontinence type: mixed stress and urge incontinence Qualified Code(s): N39.46 - Mixed incontinence (8) Benign head tremor: Code(s): G25.0 - Essential tremor Category: Medical (9) Smokes 1 pack of cigarettes per day: Code(s): F17.210 - Nicotine dependence, cigarettes, uncomplicated Category: Social Hx Plan - The patient is a 53-year-old female presenting with intercostal neuralgia. She is receiving oxycodone for pain management. Recent reports indicate some improvement in pain. - Potassium deficiency noted, with continued need for management and monitoring. The patient was placed on potassium supplementation following ER visit. Frequent monitoring necessary due to persistent low levels. Has appointment with Nephrology coming up tomorrow - Reports of muscle spasm; current treatment includes cyclobenzaprine. - Present with gastroesophageal reflux disease managed with omeprazole. - Depression managed with psychiatric medications; through psychiatrist, she is also seeing therapist. weight changes and improved appetite noted to have impacted mental health. Significant weight loss in the past due to depression, but recent improvements noted. - Included urinary incontinence for which the patient is taking bladder medication. Problem List - Neuralgia - Potassium deficiency - Muscle spasm - Gastroesophageal reflux disease - Depression - Urinary incontinence - smoking - benign head tremor - impaired fasting sugar Patient Instructions - Continue taking prescribed magnesium and potassium supplements as advised. - Maintain a diet with three small meals daily, including fruits. - Increase water intake to support overall health. - Monitor bowel movements and continue dietary adjustments to support digestive health. - Attend scheduled appointment with boot trimmer for further evaluation of potassium levels. - Avoid smoking; work towards smoking cessation support. - Continue medication regimen as prescribed and keep medications organized to ensure compliance. Medications: Refilled oxycodone Partial Fill upon patient request. 5 mg PO Q8H 30 days PRN 90 tabs 0RF pain
--- OUTSIDE RECORDS SUMMARY | 2024-02-28 08:53 | XMS_ITS | Continuity of Care Document ---
Author Organization [facility] Address [address] [place] [address] Phone Care Team Providers Care Printer Slotter Operator Name Role Phone Jennifer BUSH, FACS, [...] Copied on Encounter Office/Outpa tient Visit, Est [facility], [address] [place] [address], [address] [place] [address] , tel:[phone] Rodriguez Lump in throat (chief complaint) sore throat (chief complaint) Mass of epiglottisLaryngop haryngeal reflux (LPR)Dysphagia, unspecified typeAnxietyH/O heart artery stent 1 Jennifer Gusmana. [address] [place] [address], [id number], . tel:[phone] Specialist : Milind Finch MD, [address] [place] [address], [address]. tel:[phone] cialist: Miya Armendariz MD, [address] [facility] [address], [place], [address]. tel:[phone] cialist: Woodrow Bullock MD, [address] [place] [address], [address]. [phone] erring Provider: Frank Edmonds MD, Family Medicine [address] [place] [address], [address]. tel:[phone] [facility], [address] [place] [address], [address] [place] [address] , tel:[phone] Flex No Information 1 Flex Romeo. [address] [place] [address], [address] [place] [address], . tel:[phone] Referring Provider: Frank Edmonds MD, Family Medicine [address] [place] [address], [address]. tel:[phone] [facility], [address] [place] [address], [address] [place] [address] , tel:[phone] [place] No Information 0 No Information Referring Provider: Frank Edmonds MD, Family Medicine [address] [place] [address], [address]. tel:[phone] Office/Outpa tient Visit, [facility], [address] [place] [address], [address] [place] [address] , tel:[phone] Flex Dysphagia follow up (chief complaint) Current smokerDysphagia, unspecified typeAnxietyLaryngo pharyngeal reflux (LPR)Mass of epiglottis 0 Flex Romeo. [address] [place] [address], [id number], . tel:[phone] Specialist : Milind Finch MD, [address] [place] [address], [address]. tel:[phone] cialist: Miya Armendariz MD, [address] [place] [address], [address]. tel:[phone] cialist: Woodrow Bullock MD, [address] [place] [address], [address]. tel:[phone] erring Provider: Frank Edmonds MD, Family Medicine [address] [place] [address], [address]. tel:[phone] [facility], [address] [place] [address], [address] [place] [address] , tel:[phone] Patient Portal No Information 0 Jennifer Colón. [address] [place] [address], [address] [place] [address], . tel:[phone] Office/Outpa tient Visit, [facility], [address] [place] [address], [address] [place] [address] , tel:[phone] Simon Dysphagia (chief complaint) Dysphagia, unspecified typeLaryngopharyng eal reflux (LPR)AnxietyMass of epiglottisCurrent smoker 0 No Geological E Logger : Milind Finch MD, [address] [place] [address], [address]. tel:[phone] cialist: Miya Armendariz MD, [address] [place] [address], [address]. tel:[phone] cialist: Woodrow Bullock MD, [address] [place] [address], [address]. tel:[phone] erring Provider: Frank Edmonds MD, Family Medicine [address] [place] [address], [address]. tel:[phone] Office/Outpa tient Visit, [facility], [address] [place] [address], [id number] , tel:[phone] Setzen Facial pain (chief complaint) Headache around the eyesTMJ derangementDeviate d nasal septumReferred otalgia of both ears Aug-0 3-201 8 Renny Capone. [address] [facility], [place], [place], [id number], . tel:[phone] Specialist : Milind Finch MD, [address] [place], [address]. tel:[phone] cialist: Miya Armendariz, [address] [facility] [address], [place], [address]. tel:[phone] cialist: Woodrow Bullock MD, [address] [facility] [address], [place], [address]. tel:[phone] erring Provider: Frank Edmonds MD, Family Medicine [address] [place] [address], [address]. tel:[phone] Family History Family Member Type Diagnosis Age At Onset Father Problem (finding) Heart disease Payers Payer name Insurance type Covered green party ID Authoriza tion(s) MEDICARE PART B [id number] Social History Type Description Quantity Date Captured [...] sore throat in the AM. She used [place] yesterday with relief. Stilhaving some difficulty swallowing [...] sore throat in the AM. She used [place] yesterday with relief. 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 Additional information: Was in [facility] ER last week - left arm [...] are variable and intense. She saw an neon sign mechanic who told her that her eyes were [...] have a normal upper endoscopy with her surg tech several months ago. I will request records [...]
--- OUTSIDE RECORDS SUMMARY | 2024-02-28 08:53 | XMS_ITS | Data Portability ---
Author Organization [facility] [address] Address [address] [place] [address] Assessment No assessment recorded. Plan of Treatment Reminders Order Date Submit Date Provider Last Modified By Organization Details Last Modified Time Details Appointments None recorded. Lab None recorded. Referral orthopedic spine surgeon referral 2022 023 [email or web address] Not available 11:04:13 Procedures None recorded. Surgeries None recorded. Imaging None recorded. Medication Orders cyclobenzap rine 10 mg tablet 2022 023 [id number], [address], [place], [id number], 16:54:46 Medrol (Philip) 4 mg tablets in a dose pack 2022 023 [id number], [address], [place], [id number], 10:14:12 Patient TargetsNo targets recorded. Patient Instructions Encounter Date Encounter Id Patient Instructions Last Modified By Organization Details Last Modified Time 04/30/2022 [id number] getting back to normal after low back pain: care instructions [id number] Not available 04/30/2022 16:54:37 05/07/2022 [id number] getting back to normal after low back pain: care instructions [email or web address] Not available 05/07/2022 10:14:04 Reason for Referral Orthopedic Spine Surgeon Ref erral for Low back pain Referring Physician: Cristian Trujillo, Urgent Care, Encounter Date: 05/07/2022 Problems Name Problem SNOMED Code Status Onset Date Resolution Date Notes Provider Name and Address Organization Details Recorded Time Depressive disorder 35197464 Active 2022 Christy Rama null, PA - [facility] 3 15:08:17 Migraine 47792014 Active 2022 Christy Rama null, PA - [facility] 3 15:08:22 Anxiety 94417423 Active 2022 Christy Rama null, PA - [facility] 3 15:08:27 Neuralgia 65922213 Active 2022 Christy [place] null, PA - [facility] 3 15:08:45 Hyperlipidemia 18544190 Active 2022 Christy Rama null, PA - [facility] 3 15:08:57 Notes:3 heart stents Problem Notes None recorded. Procedures Surgical History Date Name Laterality Status Provider Name and Address Organization Details Recorded Time insertion of arterial stent completed Christy Rama PA - [facility] 04/30/2022 15:10:20 Imaging [...] Updated DateTime 3 165.1 cm 30 kg/m2 41580.6 3 g 99 % 99 % 98 [...] Updated DateTime 3 165.1 cm 30 kg/m2 95819.6 3 g 100 % 100 % 104 /min 18 /min 98.1 [degF] 127 mm[Hg] 79 mm[Hg] Molly Dieudonne PA - [facility] 3 09:28:21 Social History Question Answer Notes LastModified by Plantiga ion Details LastModified Time Tobacco Smoking Status [...] Diagnosis/Indication Diagnosis SNOMED-CT Code Diagnosis ICD10 Code Diagnosis Note [id number] CHIVO DERAS MD [facility] [address] [address] 04/30/2022 10:46:51 04/30/2022 16:55:38 Spasm of back muscles 712294104 M62.830 MUSCU LOSKELETAL PAIN can be managed quite effectivel y with over the counter medication s and home treatments . When suffering from sprains, strains, contusions and other types of very painful but non-danger ous musculoske letal pain try the following: ???1. ACETAMINOP HEN 1,000 mg or 6 hours is needed for pain.???2. Heat - Apply moist heat to affected area 3 times a day for 20 minutes at a time. Do not sleep with a heating pad as it may cause skin alvarez. 3. Topical medication such as Stop Pain-Roll On feels good to rub on painful areas. Do not apply over broken skin.???4. Many musculoske letal injuries can benefit from gentle stretching or strengthen ing exercises. 5. Wear a back support brace while working to take the strain of of you back.??? *If pain does not improve please see your doctor [facility]. If your symptoms become severe or uncontroll ed or if you develop new concerning symptoms please go to the Emergency Department for evaluation and pain control. Call your PCP to schedule a follow up appointmen t within the next 2 weeks. [id number] Cristian Trujillo DO [facility] [address] [address] 05/07/2022 08:21:34 05/07/2022 10:24:41 Low back pain 223771112 M54.50 Likely muscular originReco mmend c/w muscle relaxerTop ical analgesicD /w her trial of medrol dose packReuc health ed with patient potential adverse side effects of the medication .Exercise/ stretching , massage, heat applicatio n, support, proper lifting techniqueS x may last for 4-6 weeksGo to ED if persistent sx or onset neurologic al sx like motor weakness/l oss of sensation Ortho referral Health Concerns Section Related Observation LastModified by Organization Detai ls LastModified Time None Recorded Concern Status LastModified by Organization Details LastModified Time None Recorded Advance Directives Directive None Recorded Payers Encounter Date Sequence Insurance Name Policy Number Policy Chaudhry Covered Member ID Chaudhry Member ID Guarantor Name 04/30/2022 1 [place] [employer] Elenita Douglas [id number] Elenita Douglas 05/07/2022 1 [place] [employer] Elenita Douglas [id number] Elenita Douglas Notes Date Note Type [...] they stated was fine. She states her caseworker told her not to take NSAIDS for pain. She says she gets too hyper when she takes prednisone. CHIVO DERAS MD [address] [place], [address], [place] - [facility] 04/30/2022 17:01:44 05/07/2022 text/html Back Pain/Injury [...] She does not have a PCP Cristian Trujillo, DO [address] [place], [address], [place] PA - [facility] 05/07/2022 10:38:57 OBGyn Episode No OBEpisode recorded.
== END 2024-02-28 09:31 | disposition home or self-care (01) ==
PROVIDERS: PCP Internal Medicine; Visit Provider Internal Medicine
DX: E87.8 Other disorders of electrolyte and fluid balance, not elsewhere classified (principal); G58.8 Other specified mononeuropathies; F11.20 Opioid dependence, uncomplicated; F41.1 Generalized anxiety disorder; F33.41 Major depressive disorder, recurrent, in partial remission; R73.01 Impaired fasting glucose; N39.46 Mixed incontinence; G25.0 Essential tremor; F17.210 Nicotine dependence, cigarettes, uncomplicated

== ENCOUNTER → 2024-02-28 08:40 | Outpatient (BNVA) | payer MEDICARE, MEDICAID, SELFPAY | PROVIDERS: PCP Internal Medicine; Visit Provider Internal Medicine | DX: E87.8 Other disorders of electrolyte and fluid balance, not elsewhere classified (principal); G58.8 Other specified mononeuropathies; F10.20 Alcohol dependence, uncomplicated; F41.1 Generalized anxiety disorder; F33.41 Major depressive disorder, recurrent, in partial remission; R73.01 Impaired fasting glucose; N39.46 Mixed incontinence; G25.0 Essential tremor; F17.210 Nicotine dependence, cigarettes, uncomplicated; Z79.891 Long term (current) use of opiate analgesic | CPT/HCPCS: 96127; 99212 ==

== ENCOUNTER 2024-02-29 13:25 | Outpatient (AMB) | payer MEDICARE, MEDICAID, SELFPAY ==
[2024-02-29 13:30] VITALS: BP 96/62; PULSE 87; O2SAT 95; BMI 19.1
--- NOTE | 2024-02-29 13:30 | HO.NEPHOV_ITS ---
Vital Signs 02/29/24 13:30 Height 5 ft 5 in Weight 115 lb BMI 19.1 BP 96/62 Blood Pressure Location Lt brachial Position Sitting Pulse 87 Pulse Source Pulse Oximeter Pulse Oximetry (%) 95 Oxygen Delivery Method Room Air Intake Visit Reasons: INP: Potassium levels-LVM Digital Content Specialist Required: No Accompanied by: Self / Same As Patient Allergies cefazolin [From [facility]] Allergy (Mild, Verified 02/29/24 13:32) Swelling Medication List - Last Reconciled 02/29/24 by Demar Tejeda MD atorvastatin 80 mg PO QPM clopidogrel 75 mg PO DAILY cyclobenzaprine 5 mg PO Q8H PRN magnesium oxide 400 mg PO DAILY omeprazole 20 mg PO DAILY ondansetron HCl 4 mg PO ONCE PRN 90 days oxycodone 5 mg PO TID paroxetine HCl 20 mg PO DAILY potassium chloride ER 20 mEq PO BID PRN solifenacin 10 mg PO DAILY HPI Comments Details: 53-year-old woman referred for hypokalemia. She had history of coronary disease status post stent placement at the age of 49. She has no history of hypertension. She is not on any antihypertensive medications. She is not on any diuretics. On February 06 she was in the emergency room with hypokalemia. At that time she had significant nausea and vomiting along with diarrhea. She was given potassium supplementations and sent home. She also had mild alkalosis at the time. Upon reviewing the labs it appears that she has had hypokalemia since October of 2023. She does not take any ipab-mex-einlcqh medications. Does not use any licorice. No history of any use of marijuana. 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) Surgical History Hx of dilation and curettage Hx of knee surgery Hx of tonsillectomy Family History Father Heart attack Hypertension Mother Hypertension Social History Household Members Other:: mom Housing: Condominium Alcohol intake: never Patient Tobacco Use Status: Current everyday Tobacco user Tobacco use type: Cigarette Years Smoked: 32 years e-Cigarette/Vaping Use: Never Used Second Hand Smoke Exposure: No service: No Current occupational status: disabled Current occupational exposures/hazards: No Sexual orientation: Straight/Heterosexual Gender identity: Female Cognitive needs: No Hearing needs: No Vision needs: Yes Review of Systems Const Denies fever(s) and Denies weight loss Card Denies chest pain Resp Denies cough and Denies hemoptysis GI Denies abdominal pain, Denies diarrhea and Denies nausea Musc Denies back pain Neuro Denies focal weakness Physical Exam Vital Signs: Last Vital Signs Pulse 87 02/29/24 13:30 BP 96/62 02/29/24 13:30 Pulse Ox 95 02/29/24 13:30 Oxygen Delivery Method Room Air 02/29/24 13:30 BMI result Body Mass Index 19.1 Comfortable Neck supple no JVD. Lungs entry equal no rales. Heart S1-S2 heard no gallop or rub. Abdomen soft nontender. Neuro alert awake oriented. No asterixis. Extremities no edema. Results Reviewed Nephrology Results: Hgb 14.8 g/dl (12.0-16.0) 02/15/24 WBC 5.9 X10*3/uL (4.8-10.8) 02/15/24 Plt Count 235 X10*3/uL (160-400) 02/15/24 Sodium 141 mmol/L (135-145) 02/15/24 Potassium 4.3 mmol/L (3.3-5.1) 02/15/24 Chloride 106 mmol/L (96-108) 02/15/24 Carbon Dioxide 25 mmol/L (22-29) 02/15/24 BUN 5 mg/dL (9-16) L 02/15/24 Creatinine 0.65 mg/dL (0.5-1.4) 02/15/24 Calcium 8.9 mg/dL (8.4-10.2) 02/15/24 Urine Protein 30 (1+) mg/dL (Neg-Trace) H 02/07/24 Assessment & Plan Assessment & Plan (1) Hypokalemia: Code(s): E87.6 - Hypokalemia Category: Medical (2) Urine incontinence: Comment: Chronic. With microscopic hematuria. Being followed by Urology Code(s): R32 - Unspecified urinary incontinence Category: Medical Qualifiers: Urinary Incontinence type: mixed stress and urge incontinence Qualified Code(s): N39.46 - Mixed incontinence Plan 53-year-old woman with hypokalemia Normotension. Hypokalemia has been documented for the last 3 months. Some episodes were associated with alkalosis. Two years ago she had mild hyperchloremic metabolic acidosis. At the time she would not have hypokalemia. Differential diagnosis would include potassium losses from GI source including nausea and vomiting. Vomiting could have resulted in proton loss leading to metabolic alkalosis. Diuretic abuse should be considered. Since she had mild metabolic acidosis in the past renal tubular acidosis should also be in the differential. Recommendations Check urine anion gap. Check serum aldosterone and plasma renin activity. Continue potassium supplementation for now. Encouraged her to continue with adequate fluid intake. She should avoid using any diuretics or usti-krk-ysjbzow medications. Orders: Orders Aldost/Renin Today Demar Tejeda MD E87.6 - Hypokalemia Sodium Urine Random Today Demar Tejeda MD E87.6 - Hypokalemia Aldosterone Today Demar Tejeda MD E87.6 - Hypokalemia Renin Today Demar Tejeda MD E87.6 - Hypokalemia Basic Metabolic Panel Today Demar Tejeda MD E87.6 - Hypokalemia Potassium Urine Random Today Demar Tejeda MD E87.6 - Hypokalemia Creatinine Urine Today Demar Tejeda MD E87.6 - Hypokalemia Chloride Urine Random Today Demar Tejeda MD E87.6 - Hypokalemia UA and rflx microscopic Today Demar Tejeda MD E87.6 - Hypokalemia Medications: Changed From oxycodone Partial Fill upon patient request. 5 mg PO Q8H 30 days PRN 90 tabs 0RF pain To oxycodone Partial Fill upon patient request. 5 mg PO TID pain Ciro White MD From potassium chloride ER 10 mEq PO BID PRN 20 tabs 3RF low potassium To potassium chloride ER 20 mEq PO BID PRN low potassium Manuela Corona MD Coding Level of Care Code New Pt Level 5 (21802) Diagnoses Hypokalemia E87.6 Mixed stress and urge urinary incontinence N39.46 Urinary Incontinence type: mixed stress and urge incontinence
== END 2024-02-29 13:52 | disposition home or self-care (01) ==
PROVIDERS: PCP Internal Medicine; Referring Provider Internal Medicine; Visit Provider Internal Medicine Hypertension Specialist
DX: E87.6 Hypokalemia (principal); N39.46 Mixed incontinence
CPT/HCPCS: 99204

== ENCOUNTER → 2024-02-29 13:25 | Outpatient (BNVA) | payer MEDICARE, MEDICAID, SELFPAY | PROVIDERS: PCP Internal Medicine; Referring Provider Internal Medicine; Visit Provider Internal Medicine Hypertension Specialist | DX: E87.6 Hypokalemia (principal); N39.46 Mixed incontinence | CPT/HCPCS: 99202 ==

== ENCOUNTER 2024-03-01 08:00 | Outpatient (REF) | payer MEDICARE, MEDICAID, SELFPAY ==
--- OUTSIDE RECORDS SUMMARY | 2024-03-01 08:12 | XMS_ITS | Continuity of Care Document ---
Author Organization [facility] Address [address] [place] [address] Phone Care Team Providers Care Corrective Therapy Aide Name Role Phone Jennifer BUSH, FACS, FAAOA, [...] Copied on Encounter Office/Outpa tient Visit, Est [facility], [address] [place] [address], [address] [place] [address] , tel:[phone] Rodriguez Lump in throat (chief complaint) sore throat (chief complaint) Mass of epiglottisLaryngop haryngeal reflux (LPR)Dysphagia, unspecified typeAnxietyH/O heart artery stent 1 Jennifer Gusmana. [address] [place] [address], [id number], . tel:[phone] Specialist : Milind Finch MD, [address] [place] [address], [address]. tel:[phone] cialist: Miya Armendariz MD, [address] [facility] [address], [place], [address]. tel:[phone] cialist: Woodrow Bullock MD, [address] [place] [address], [address]. [phone] erring Provider: Frank Edmonds MD, Family Medicine [address] [place] [address], [address]. tel:[phone] [facility], [address] [place] [address], [address] [place] [address] , tel:[phone] Flex No Information 1 Flex Romoe. [address] [place] [address], [address] [place] [address], . tel:[phone] Referring Provider: Frank Edmonds MD, Family Medicine [address] [place] [address], [address]. tel:[phone] [facility], [address] [place] [address], [address] [place] [address] , tel:[phone] Aurora No Information 0 No Information Referring Provider: Frank Edmonds MD, Family Medicine [address] [place] [address], [address]. tel:[phone] Office/Outpa tient Visit, [facility], [address] [place] [address], [address] [place] [address] , tel:[phone] Flex Dysphagia follow up (chief complaint) Current smokerDysphagia, unspecified typeAnxietyLaryngo pharyngeal reflux (LPR)Mass of epiglottis 0 Flex Romeo. [address] [place] [address], [id number], . tel:[phone] Specialist : Milind Finch MD, [address] [place] [address], [address]. tel:[phone] cialist: Miya Armendariz MD, [address] [place] [address], [address]. tel:[phone] cialist: Woodrow Bullock MD, [address] [place] [address], [address]. tel:[phone] erring Provider: Frank Edmonds MD, Family Medicine [address] [place] [address], [address]. tel:[phone] [facility], [address] [place] [address], [address] [place] [address] , tel:[phone] Patient Portal No Information 0 Jennifer Colón. [address] [place] [address], [address] [place] [address], . tel:[phone] Office/Outpa tient Visit, [facility], [address] [place] [address], [address] [place] [address] , tel:[phone] Simon Dysphagia (chief complaint) Dysphagia, unspecified typeLaryngopharyng eal reflux (LPR)AnxietyMass of epiglottisCurrent smoker 0 No [employer] Teacher : Milind Finch MD, [address] [place] [address], [address]. tel:[phone] cialist: Miya Armendariz MD, [address] [place] [address], [address]. tel:[phone] cialist: Woodrow Bullock MD, [address] [place] [address], [address]. tel:[phone] erring Provider: Frank Edmonds MD, Family Medicine [address] [place] [address], [address]. tel:[phone] Office/Outpa tient Visit, [facility], [address] [place] [address], [id number] , tel:[phone] Setzen Facial pain (chief complaint) Headache around the eyesTMJ derangementDeviate d nasal septumReferred otalgia of both ears Aug-0 3-201 8 eRnny Capone. [address] [facility], [place], [place], [id number], . tel:[phone] Specialist : Milind Finch MD, [address] [place], [address]. tel:[phone] cialist: Miya Armendariz, [address] [facility] [address], [place], [address]. tel:[phone] cialist: Woodrow Bullock MD, [address] [facility] [address], [place], [address]. tel:[phone] erring Provider: Frank Edmonds MD, Family Medicine [address] [place] [address], [address]. tel:[phone] Family History Family Member Type Diagnosis Age At Onset Father Problem (finding) Heart disease Payers Payer name Insurance type Covered democrat ID Authoriza tion(s) MEDICARE PART B [id number] Social History Type Description Quantity Date Captured [...] sore throat in the AM. She used [place] yesterday with relief. Stilhaving some difficulty swallowing [...] sore throat in the AM. She used [place] yesterday with relief. 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 Additional information: Was in [facility] ER last week - left arm [...] are variable and intense. She saw an reading specialist who told her that her eyes [...] have a normal upper endoscopy with her lab scientist several months ago. I will request records [...]
[2024-03-01 10:24] LABS: Appearance Urine Clear; Color Urine Yellow; Glucose Urine UA Negative (Negative); Leukocyte Esterase Urine Negative (Negative); Nitrite Urine Negative (Negative); PH 5.5 (5.0-9.0); Specific Gravity - Urine <= 1.005 (1.005-1.025); Urine Blood Negative (Negative); Urine Ketones Negative (Negative); Urine Protein Negative (Neg-Trace)
[2024-03-01 10:34] LABS: Anion Gap 13 (12-20); Blood Urea Nitrogen 9 mg/dL (9-16); Calcium 9.5 mg/dL (8.4-10.2); Carbon Dioxide 23 mmol/L (22-29); Chloride 108 mmol/L (96-108); Estimated Glomerular Filt Rate > 60; Glucose Random 94 mg/dL (60-115); Potassium 4.7 mmol/L (3.3-5.1); Sodium 139 mmol/L (135-145)
[2024-03-01 11:02] LABS: Creatinine Urine 23.28 mg/dL; Potassium Urine Random 23.6 mmol/L
[2024-03-11 12:10] LABS: Aldosterone/Renin Ratio 2.5 Ratio (0.9-28.9); Plasma Renin Activity 4.89 ng/mL/h (0.25-5.82)
== END 2024-03-01 08:01 | disposition home or self-care (01) ==
LOC: HO.HMGCLDS 08:00
PROVIDERS: PCP Internal Medicine; Visit Provider Internal Medicine Hypertension Specialist
DX: E87.6 Hypokalemia (principal)
CPT/HCPCS: 36415; 80048; 81003; 82088; 82436; 82570; 84133; 84300

== ENCOUNTER 2024-03-14 11:12 | Outpatient (AMB) | payer MEDICARE, MEDICAID, SELFPAY ==
[2024-03-14 11:14] VITALS: BP 124/72; PULSE 77; O2SAT 98; BMI 19.5
--- NOTE | 2024-03-14 11:14 | HO.NEPHOV_ITS ---
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 She had history of coronary disease status post stent placement at the age of 49. She has no history of hypertension. She is not on any antihypertensive medications. She is not on any diuretics. On February 06 she was in the emergency room with hypokalemia. At that time she had significant nausea and vomiting along with diarrhea. She was given potassium supplementations and sent home. She also had mild alkalosis at the time. Upon reviewing the labs it appears that she has had hypokalemia since October of 2023. She does not take any bnua-mvo-uvvuife medications. Does not use any licorice. No history of any use of marijuana. 03/14/2024. Overall she is feeling well. No further vomiting or diarrhea. 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) Surgical History Hx of dilation and curettage Hx of knee surgery Hx of tonsillectomy Family History Father Heart attack Hypertension Mother Hypertension Social History Household Members Other:: mom Housing: Condominium Alcohol intake: never Patient Tobacco Use Status: Current everyday Tobacco user Tobacco use type: Cigarette Years Smoked: 32 years e-Cigarette/Vaping Use: Never Used Second Hand Smoke Exposure: No service: No Current occupational status: disabled Current occupational exposures/hazards: No Sexual orientation: Straight/Heterosexual Gender identity: Female Cognitive needs: No Hearing needs: No Vision needs: Yes Physical Exam Vital Signs: Last Vital Signs Pulse 77 03/14/24 11:14 BP 124/72 03/14/24 11:14 Pulse Ox 98 03/14/24 11:14 Oxygen Delivery Method Room Air 03/14/24 11:14 BMI result Body Mass Index 19.5 Comfortable Neck supple no JVD. Lungs entry equal no rales. Heart S1-S2 heard no gallop or rub. Abdomen soft nontender. Neuro alert awake oriented. No asterixis. Extremities no edema. Results Reviewed Nephrology Results: Hgb 14.8 g/dl (12.0-16.0) 02/15/24 WBC 5.9 X10*3/uL (4.8-10.8) 02/15/24 Plt Count 235 X10*3/uL (160-400) 02/15/24 Sodium 139 mmol/L (135-145) 03/01/24 Potassium 4.7 mmol/L (3.3-5.1) 03/01/24 Chloride 108 mmol/L (96-108) 03/01/24 Carbon Dioxide 23 mmol/L (22-29) 03/01/24 BUN 9 mg/dL (9-16) 03/01/24 Creatinine 0.64 mg/dL (0.5-1.4) 03/01/24 Calcium 9.5 mg/dL (8.4-10.2) 03/01/24 Urine Protein Negative mg/dL (Neg-Trace) 03/01/24 Urine Creatinine 23.28 mg/dL 03/01/24 Assessment & Plan Assessment & Plan (1) Hypokalemia: Code(s): E87.6 - Hypokalemia Category: Medical (2) Urine incontinence: Comment: Chronic. With microscopic hematuria. Being followed by Urology Code(s): R32 - Unspecified urinary incontinence Category: Medical Qualifiers: Urinary Incontinence type: mixed stress and urge incontinence Qualified Code(s): N39.46 - Mixed incontinence Plan 53-year-old woman with hypokalemia Normotension. Hypokalemia has been documented for the last 3 months. Some episodes were associated with alkalosis. Two years ago she had mild hyperchloremic metabolic acidosis. At the time she did not have hypokalemia. Differential diagnosis would include potassium losses from GI source including nausea and vomiting. Vomiting could have resulted in proton loss leading to metabolic alkalosis. Diuretic abuse should be considered. Recent urine anion gap was positive. However she did not have any diarrhea at this time. Recommendations I will taper potassium supplementation and recheck potassium levels. Decrease potassium to 10 mEq b.i.d. for 2 weeks and check potassium levels if potassium is normal I will decrease it further to 1 tablet a day. If she develops hypokalemia after discontinuing potassium supplementation without any diuretics she needs further workup. Although serum aldosterone and plasma renin renin activities were normal this need to be repeated if she develops hypokalemia again. Encouraged her to continue with adequate fluid intake. She should avoid using any diuretics or piqf-lpe-asgwllk medications. Orders: Orders Electrolytes 2 Weeks E87.6 - Hypokalemia Electrolytes 4 Weeks E87.6 - Hypokalemia Coding Level of Care Code Est Pt Level 4 (20983) Diagnoses Hypokalemia E87.6 Mixed stress and urge urinary incontinence N39.46 Urinary Incontinence type: mixed stress and urge incontinence
--- OUTSIDE RECORDS SUMMARY | 2024-03-14 15:05 | XMS_ITS | Encounter Summary ---
Author Organization [place] [address] Care Team Providers Care Animal Rescuer Name Role Phone Frank Edmonds MD Primary Care Provider Encounter Details Date Type Department Care Team (Late st Contact Info) Description 06/11/2020 10:20 AM EDT Hospital Encounter [facility] [address] [facility] 2nd [place] [id number] Thaddeus De Anda MD [address] [place] [address] Social History Tobacco Use Types Packs/Day Years [...] degree you have received? 12th grade 11/19/2020 Sex and Gender Information Value Date Recorded Sex Assigned at Not on file Gender Identity Not on file Sexual Orientation Not on file Job Start Date Occupation Industry Not on file Not on file Not [...] on filedocumented in this encounter Care Teams Animal Rescuer Relationship Specialty Start Date End Date Frank Edmonds MD [address] [place] [phone] PCP - General 05/20/20 10/25/21 documented as of this encounter
--- OUTSIDE RECORDS SUMMARY | 2024-03-14 15:05 | XMS_ITS | Encounter Summary ---
Author Organization [place] [address] Care Team Providers Care Environmental Technical Officer Name Role Phone Frank Edmonds MD Primary Care Provider [phone] Encounter Details Date Type Department Care Team (Late st Contact Info) Description 06/15/2020 2:06 PM EDT Hospital Encounter [facility] [address] [place] [phone] Darinel Sanchez MD [address] [place] [address] Social History Tobacco Use Types [...] money to get more. Never true 10/14/2020 [facility] Answer Date Re corded How [...] on filedocumented in this encounter Care Teams Environmental Technical Officer Relationship Specialty Start Date End Date Frank Edmonds MD [address] [place] [phone] PCP - General 05/20/20 10/25/21 documented as of this encounter
--- OUTSIDE RECORDS SUMMARY | 2024-03-14 15:06 | XMS_ITS | Data Portability ---
Author Organization [facility] [address] Address [address] [place] [address] Assessment No assessment recorded. Plan of Treatment Reminders Order Date Submit Date Provider Last Modified By Organization Details Last Modified Time Details Appointments None recorded. Lab None recorded. Referral orthopedic spine surgeon referral 2022 023 [email or web address] Not available 11:04:13 Procedures None recorded. Surgeries None recorded. Imaging None recorded. Medication Orders cyclobenzap rine 10 mg tablet 2022 023 [id number], [address], [place], [id number], 16:54:46 Medrol (Philip) 4 mg tablets in a dose pack 2022 023 [facility] #[id number], [address], [place], [id number], 10:14:12 Patient TargetsNo targets recorded. Patient Instructions Encounter Date Encounter Id Patient Instructions Last Modified By Organization Details Last Modified Time 04/30/2022 [id number] getting back to normal after low back pain: care instructions [id number] Not available 04/30/2022 16:54:37 05/07/2022 [id number] getting back to normal after low back pain: care instructions [email or web address] Not available 05/07/2022 10:14:04 Reason for Referral Orthopedic Spine Surgeon Ref erral for Low back pain Referring Physician: Cristian Trujillo, Urgent Care, Encounter Date: 05/07/2022 Problems Name Problem SNOMED Code Status Onset Date Resolution Date Notes Provider Name and Address Organization Details Recorded Time Depressive disorder 43796639 Active 2022 Christy Rama null, PA - [facility] 3 15:08:17 Migraine 58489501 Active 2022 Christy Rama null, PA - [facility] 3 15:08:22 Anxiety 12377878 Active 2022 Christy Karlstad null, PA - [facility] 3 15:08:27 Neuralgia 61900092 Active 2022 Christy Rama null, PA - [facility] 3 15:08:45 Hyperlipidemia 90377320 Active 2022 Christy Karlstad null, PA - [facility] 3 15:08:57 [...] Not Available Vitals Date Recorded Body height Provider Name an d Address Organization Details Last Updated DateTime 04/30/2022 165.1 cm Christy Rama PA - [facility] 0 04/30/2022 15:05:04 Date Recorded Body mass index (BMI) Body weight Provider Name and Address Organization Details Last Updated DateTime 04/30/2022 30 kg/m2 07810.63 g Christy Karlstad PA - [facility] 04/30/2022 15:05:07 Date Recorded Oxygen saturation Oxygen saturation in Arterial blood by Pulse oximetry Provider Name and Address Organization Details Last Updated DateTime 04/30/2022 99 % 99 % Christy Karlstad PA - [facility] 04/30/2022 15:11:43 Date Recorded Pain severity - 0-10 verbal numeric rating [Score] - Reported Provider Name and Address Organization Details Last Updated DateTime 04/30/2022 10 Christy Karlstad PA - [facility] 0 04/30/2022 15:11:46 Date Recorded Heart rate Provider Name an d Address Organization Details Last Updated DateTime 04/30/2022 98 /min Christy Rama PA - [facility] 0 04/30/2022 15:11:49 Date Recorded Respiratory rate Provider Name a nd Address Organization Details Last Updated DateTime 04/30/2022 20 /min Christy Rama PA - [facility] 0 04/30/2022 15:11:50 Date Recorded Body temperature Provider Name a nd Address Organization Details Last Updated DateTime 04/30/2022 98.1 [degF] Christy Karlstad PA - [facility] 04/30/2022 15:11:55 Date Recorded Body height Provider Name an d Address Organization Details Last Updated DateTime 05/07/2022 165.1 cm Molly Dieudonne PA - [facility] 05/07/2022 09:24:01 Date Recorded Body mass index (BMI) Body weight Provider Name and Address Organization Details Last Updated DateTime 05/07/2022 30 kg/m2 78561.63 g Molly Salamancaannika PA - [facility] 05/07/2022 09:25:56 Date Recorded Pain severity - 0-10 verbal numeric rating [Score] - Reported Provider Name and Address Organization Details Last Updated DateTime 05/07/2022 9 Molly Bro PA - [facility] 05/07/2022 09:26:19 Date Recorded Oxygen saturation Oxygen saturation in Arterial blood by Pulse oximetry Provider Name and Address Organization Details Last Updated DateTime 05/07/2022 100 % 100 % Molly Bro PA - [facility] 05/07/2022 09:28:25 Date Recorded Heart rate Provider Name an d Address Organization Details Last Updated DateTime 05/07/2022 104 /min Molly Bro PA - [facility] 05/07/2022 09:28:27 Date Recorded Respiratory rate Provider Name a nd Address Organization Details Last Updated DateTime 05/07/2022 18 /min Molly Bro PA - [facility] 05/07/2022 09:28:29 Date Recorded Body temperature Provider Name a nd Address Organization Details Last Updated DateTime 05/07/2022 98.1 [degF] Molly Bro PA - [facility] 05/07/2022 09:28:43 Date Recorded Systolic blood pressure Diastolic blood pressure Provider Name and Address Organization Details Last Updated DateTime 04/30/2022 116 mm[Hg] 78 mm[Hg] Christy Karlstad PA - [facility] 04/30/2022 15:11:40 Date Recorded Systolic blood pressure Diastolic blood pressure Provider Name and Address Organization Details Last Updated DateTime 05/07/2022 127 mm[Hg] 79 mm[Hg] Molly Bro PA - [facility] 05/07/2022 09:28:21 Social History Question Answer Notes LastModified by Organizat ion Details LastModified Time Tobacco Smoking Status Former Smoker Christyjoselyn Vallecaden gu, PA - [facility] 04/30/2022 15:10:10 What Is Your Level Of Alcohol Consumption? None Information not available 04/30/2022 When Did You Quit Smoking? 1-5yearssin magdalena suazo Information not available 04/30/2022 Have You Had [...] SNOMED-CT Code Diagnosis ICD10 Code Diagnosis Note [id number] CHIVO DERAS MD [address] [address] 04/30/2022 10:46:51 04/30/2022 16:55:38 Spasm of back muscles 008653433 M62.830 MUSCU LOSKELETAL PAIN can be managed quite effectivel y with over the counter medication s and home treatments . When suffering from sprains, strains, contusions and other types of very painful but non-danger ous musculoske letal pain try the following: ?1. ACETAMINOP HEN 1,000 mg or 6 hours is needed for pain.?2. Heat - Apply moist heat to affected area 3 times a day for 20 minutes at a time. Do not sleep with a heating pad as it may cause skin alvarez. 3. Topical medication such as Stop Pain-Roll On feels good to rub on painful areas. Do not apply over broken skin.?4. Many musculoske letal injuries can benefit from gentle stretching or strengthen ing exercises. 5. Wear a back support brace while working to take the strain of of you back.?If pain does not improve please see your doctor or return to [facility] within one week. If your symptoms become severe or uncontroll ed or if you develop new concerning symptoms please go to the Emergency Department for evaluation and pain control. Call your PCP to schedule a follow up appointmen t within the next 2 weeks. [id number] Cristian Trujillo DO [address] [facility] [facility] [address] [place] [address] 05/07/2022 08:21:34 05/07/2022 10:24:41 Low back pain 279885773 M54.50 Likely muscular originReco mmend c/w muscle relaxerTop ical analgesicD /w her trial of medrol dose packReview ed with patient potential adverse side effects [...] ID Guarantor Name 04/30/2022 1 [place]IC[place] B-[place]: [employer] Elenita Douglas [id number] 0 Elenita Douglas 05/07/2022 1 [place]IC[place]: [employer] Elenita Douglas [id number] 0 Elenita Douglas Notes Date Note Type [...] they stated was fine. She states her employee communications coordinator told her not to take NSAIDS for pain. She says she gets too hyper when she takes prednisone. CHIVO DERAS MD [address] [place], [address], [place] [facility] 04/30/2022 17:01:44 05/07/2022 text/html Back Pain/Injury [...] Cristian Trujillo DO [address] [place], [address], PA - [facility] 05/07/2022 10:38:57 OBGyn Episode No OBEpisode recorded.
--- OUTSIDE RECORDS SUMMARY | 2024-03-14 15:06 | XMS_ITS | Encounter Summary ---
Author Organization [employer] [place] [address] Care Team Providers Care Mechanical Specialist Name Role Phone Unavailable Primary Care Provider Unavailabl e Encounter Details Date Type Department Care Team (Late st Contact Info) Description 11/25/2019 Hospital Encounter TH HISTORIC ENCOUNTERS EASTERN CONVERSION ONLY Selma Ace MD [address] [place] [address] Other chest pain Social History Tobacco Use [...] this encounter Results * TTE W/Doppler Complete [id number] [facility] (11/26/2019 10:09 AM EDT) Anatomical Region Laterality Modality Other 11/25/2019 8:17 AM EDT Narrative 11/26/2019 10:09 AM EDT [facility] in Cardiology [address] [place], [place] ??[address] Transthoracic Echocardiogram Report Name: ?? TEJA DOUGLAS ?Exam Date: ?? 11/25/2019 08:17 ?? Ordering Physician:SELMA ACE Age: ?49 ? Gender: ??F ? Ht (in):65 ?Wt (lb): 168 ?Referring Physician:SHIRLEY WOLF ?BSA: ?? 1.87 ? Hay Stacker Operator: ? DAM : ?1970 ?BP (mmHg): ??108 ?/ 70 Exam Location: [facility] Type of Exam: Adult CPT's: ?77367 Clinical Indications:OTHER CHEST PAIN / LIGHTHEADED / DYSPNEA Diagnostic Findings:Other chest pain ICD Codes: ?R07.89 ? Technical Quality:Fair CONCLUSIONS: Grossly normal LV function with no hemodynamically sigificant valve disease. Findings Left Ventricle: ? The left ventricle is normal in size, thickness, and systolic function and there are no wall motion abnormalities. Estimated LV Systolic Ejection Fraction:63% LV Diastolic Function:Normal diastolic function. Left Atrium: ?The left atrium is normal in size. Right Ventricle: ?The right ventricle is normal in size and systolic function. Right Atrium: ? The right atrium is normal in size. Mitral Valve: ? The mitral valve leaflets are normal in structure and function. Aortic Valve: ? The aortic valve is trileaflet and opens well. Tricuspid Valve: ?The tricuspid valve is normal in structure. There is mild tricuspid regurgitation (1+). TR PG = 22mmhg. Pulmonic Valve: ? The pulmonic valve is not well visualized but there is no significant stenosis or insufficiency. Aorta: ?The aortic root is normal in size. Pulmonary Artery: ?? The pulmonary artery is grossly normal. Pericardium: ?There is no pericardial effusion. Contrast Study: ? Not Performed Measurements 2D ECHO LV Diastolic Diameter Bas ??4.81 cm ? 3.6-5.6 ?LV EF 2D Teich ? 63.22 % LV Diastolic Diameter Ind ??2.57 cm/m? IVS Diastolic Thickness ?0.80 cm ? 0.6-1.1 LV Systolic Diameter Base ??3.16 cm ? 2.3-4.9 ?LVPW Diastolic Thickness ?? 0.93 cm ? 0.6-1.1 Fractional Shortening BAS ??0.34 ?0.18-0.42 ?LA Systolic Diameter LX ?2.90 cm ? 2.1-3.7 LV Systolic Volume SIM ? 31.57 cm3 ?Aortic Root Diameter ? 3.29 cm ? 2.0-3.5 LV Vol Sys 2D Teich ?39.75 cm3 ?Aortic Root Index ?1.76 cm/m?? LV Vol Holley 2D Teich ? 108.06 cm3 DOPPLER Mitral E Point Velocity ?76.55 cm/s ? E Prime Velocity ? 9.07 cm/s Mitral ??A Point Velocity ?? 41.36 cm/s ? E/e' Ratio ? 8.44 Mitral E to A Ratio ?1.85 ? TR Peak Velocity ? 236.00 cm/ MV Deceleration Time ? 153.54 ms ?TR Peak Gradient ? 22.28 mmHg Cullen Nelson MD, FACC (Electronically Signed) Final Date: ??26 November 2019 10:08 Procedure Note Historical, Cardiovascular Results, - 07/08/2020 [facility] [address] [place] [address] Transthoracic Echocardiogram Report Name: TEJA DOUGLAS Exam Date: 11/25/2019 08:17Ordering Physician:SELMA ACE Age: 49 Gender: F Ht (in):65 Wt (lb): 168Referring Physician:SHIRLEY WOLF BSA: 1.87Sonographer: TREVOR : 1970 BP (mmHg): 108 / 70 Exam Location: [facility] Type of Exam: Adult CPT's: 22776 Clinical Indications:OTHER CHEST PAIN / LIGHTHEADED / [...] Teich63.22 % LV Diastolic Diameter Ind 2.57 cm/m?? IVS DiastolicThickness 0.80 cm 0.6-1.1 LV Systolic Diameter Base 3.16 cm 2.3-4.9 LVPW DiastolicThickness 0.93 cm 0.6- 1.1 Fractional Shortening BAS 0.34 0.18-0.42 LA Systolic DiameterLX 2.90 cm 2.1-3.7 LV Systolic Volume SIM 31.57 cm3 Aortic Root Diameter3.29 cm 2.0-3.5 LV Vol Sys 2D Teich 39.75 cm3 Aortic Root Index1.76 cm/m?? LV Vol Holley 2D Teich 108.06 cm3 DOPPLER Mitral E Point Velocity 76.55 cm/s E Prime Velocity9.07 cm/s Mitral A Point Velocity 41.36 cm/s E/e' Ratio8.44 Mitral E to A Ratio 1.85 TR Peak Prappwvu996.00 cm/ MV Deceleration Time 153.54 ms TR Peak Ytfgaqes41.28 mmHg Cullen Nelson MD, [facility] (Electronically Signed) Final Date: 26 November 2019 10:08 Cardiovascular Results Historical CV HISTORICAL CONV PROCEDURES * Stress Test Cardiac Tracing [id number] [facility] (11/25/2019 7:37 PM EDT) Anatomical Region Laterality Modality Other 11/25/2019 9:09 AM EDT Narrative 11/25/2019 7:37 PM EDT [facility] in Cardiology [address] [place], [place] ??[address] Stress Test Report Name: ??TEJA DOUGLAS ? Exam Date: 11/25/2019 09:09 ?Ordering Phys: SELMA ACE ?Exam Location: [facility] ? Referring Phys:SHIRLEY WOLF Age: 49 ? Gender: F ? Ht (in):65 ??Wt (lb):163 BSA ??1.84 ?Technologist: ??anny edmondson : ?1970 Procedure CPT: ?? 96285 Indications: ? Other chest pain, Palpitations, Other forms of dyspnea, Bradycardia, unspecified ICD-9 Codes: ? R07.89 ??R00.2 ??R06.09 ??R00.1 Patient History: chest pain, dyspnea, palpitations Medications: ? propanolol, pravastatin STRESS TEST ? Ovi Protocol ?Exercise Duration (min:sec):6:00 ?METS: ?? 7.0 mets Resting HR (bpm):79 ?Resting BP (mmHg): ??132 ??/78 ?MPHR: ?? 147 ?Target HR: ? 7499 Peak HR (bpm): ?? 134 ?? Peak BP (mmHg): ? 152 ??/86 ?% MPHR: ?? 77 ? Double Product:87572 BP Response: ? Normal blood pressure response during stress Stress Termination:6/10 chest pain present at start of test (constant). With exercise, there was nausea, fatigue, and slightly worsened chest pain 7/10 - all symptoms resolved within 1 minute of recovery and chest pain returned to baseline 6/10. Stress Symptoms: See above. Stress Summary: ??The patient's target heart rate was NOT achieved, The hemodynamic response to exercise was normal ECG ANALYSIS Resting ECG: ? Sinus bradycardia. ??Otherwise normal ECG. Stress ECG: ?Equivocal ECG changes with [address] [...] 2019 18:57 Procedure Note Historical, Cardiovascular Results, - 07/08/2020 [facility] in Cardiology [address] [place] [address] Stress Test Report Name: TEJA DOUGLAS Exam Date: 11/25/2019 09:09Ordering Phys: SELMA ACE [place] [facility] [place] [facility]erring Phys:SHIRLEY MARIBELJason Age: 49 Gender: F Ht (in):65 Wt (lb):163 BSA 1.84Technologist: anny edmondson : 1970 Procedure CPT: 62891 Indications: Other chest pain, Palpitations, Other forms of dyspnea,Bradycardia, unspecified ICD-9 Codes: R07.89 R00.2 R06.09 R00.1 Patient History: chest pain, dyspnea, palpitations Medications: propanolol, pravastatin STRESS TEST Ovi Protocol Exercise Duration(min:sec):6:00 METS: 7.0 mets Resting HR (bpm):79 Resting BP (mmHg): 132 /78 MPHR: 147Target HR: 7499 Peak HR (bpm): 134 Peak BP (mmHg): 152 /86 % MPHR: 77Double Product:09995 BP Response: Normal blood pressure response during [...] Signed) Final Date: 25 November 2019 18:57 Cardiovascular Results Historical MD CV HISTORICAL CONV PROCEDURES documented in this encounter Visit Diagnoses Diagnosis Other chest pain documented in this encounter
--- OUTSIDE RECORDS SUMMARY | 2024-03-14 15:06 | XMS_ITS | Continuity of Care Document ---
Author Organization [facility] Address [address] [place] [address] Phone Care Team Providers Care Forwarder Operator Name Role Phone Jennifer BUSH, FACS, [...] day at bedtime 40 MG - Active atorvastatin 40 mg tablet take 1 tablet by oral route every day 40 MG - Active metoprolol succinate ER 50 mg tablet,extended release 24 hr take 1 tablet by oral route every day 50 MG - Active diazepam 5 mg tablet take 1 tablet by oral route 2 times every day 5 MG - Active Brilinta 90 mg tablet Take 1 tablet twice a day by oral route. - Active aspirin 81 mg tablet,delayed release Take 1 tablet every day by oral route. - Active phenazopyridine 100 mg tablet TK 1 T PO TID PRN FOR DYSURIA - Active Nitrostat 0.[address] 1 TABLET (0.4 MG) BY SUBLINGUAL ROUTE EVERY 5 MINUTES NEEDEDFOR CHEST PAIN. DO NOT EXCEED 3 DOSES IN 15 MINUTES. - Active Miralax 17 gram oral powder packet Take 1 packet every day by oral route. - Active isosorbide mononitrate ER 30 mg tablet,extended release 24 hr Take 1 tablet every day by oral route. - Active prochlorperazine maleate 5 mg tablet take 1 tablet by oral route every 4 hours as needed for nausea and vomiting 5 MG - Active naratriptan 2.5 mg tablet take 1 tablet by oral route once may repeat after 4 hours 2.5 MG - Active AJOVY SYRINGE (unknown strength) inject 1.5 milliliter by subcutaneous route every month in the abdomen, thigh, or upper arm Not Available - Active propranolol 80 mg tablet take 1 tablet by oral route 2 times every day 80 MG - Active lamotrigine 200 mg tablet take 1 tablet by oral route every day 200 MG - Active esomeprazole magnesium 40 mg [...] Copied on Encounter Office/Outpa tient Visit, Est [facility], [address] [place] [address], [address] [place] [address] , tel:[phone] Rodriguez Lump in throat (chief complaint) sore throat (chief complaint) Mass of epiglottisLaryngop haryngeal reflux (LPR)Dysphagia, unspecified typeAnxietyH/O heart artery stent 1 Rodriguez Katarzyna. [address] [place] [address], [id number], . tel:[phone] Specialist : Milind Finch MD, [address] [place] [address], [address]. tel:[phone] cialist: Miya Armendariz MD, [address] [facility] [address], [place], [address]. tel:[phone] cialist: Woodrow Bullock MD, [address] [place] [address], [address]. [phone] erring Provider: Frank Edmonds MD, Family Medicine [address] [place] [address], [address]. tel:[phone] [facility], [address] [place] [address], [address] [place] [address] , tel:[phone] Flex No Information 1 Flex Romeo. [address] [place] [address], [address] [place] [address], . tel:[phone] Referring Provider: Frank Edmonds MD, Family Medicine [address] [place] [address], [address]. tel:[phone] [facility], [address] [place] [address], [address] [place] [address] , tel:[phone] Aurora No Information 0 No Information Referring Provider: Frank Edmonds MD, Family Medicine [address] [place] [address], [address]. tel:[phone] Office/Outpa tient Visit, [facility], [address] [place] [address], [address] [place] [address] , [phone] Flex Dysphagia follow up (chief complaint) Current smokerDysphagia, unspecified typeAnxietyLaryngo pharyngeal reflux (LPR)Mass of epiglottis 0 Flex Romeo. [address] [place] [address], [id number], . tel:[phone] Specialist : Milind Finch MD, [address] [place] [address], [address]. tel:[phone] cialist: Miya Armendariz MD, [address] [place] [address], [address]. tel:[phone] cialist: Woodrow Bullock MD, [address] [place] [address], [address]. tel:[phone] erring Provider: Frank Edmonds MD, Family Medicine [address] [place] [address], [address]. tel:[phone] [facility], [address] [place] [address], [address] [place] [address] , tel:[phone] Patient Portal No Information 0 Jennifer Colón. [address] [place] [address], [address] [place] [address], . tel:[phone] Office/Outpa tient Visit, [facility], [address] [place] [address], [address] [place] [address] , tel:[phone] Simon Dysphagia (chief complaint) Dysphagia, unspecified typeLaryngopharyng eal reflux (LPR)AnxietyMass of epiglottisCurrent smoker 0 No Career Representative : Milind Finch MD, [address] [place] [address], [address]. tel:[phone] cialist: Miya Armendariz MD, [address] [place] [address], [address]. tel:[phone] cialist: Woodrow Bullock MD, [address] [place] [address], [address]. tel:[phone] erring Provider: Frank Edmonds MD, Family Medicine [address] [place] [address], [address]. tel:[phone] Office/Outpa tient Visit, [facility], [address] [place] [address], [id number] , tel:[phone] Setzen Facial pain (chief complaint) Headache around the eyesTMJ derangementDeviate d nasal septumReferred otalgia of both ears Aug-0 3-201 8 Renny Capone. [address] [facility], [place], [place], [id number], . tel:[phone] Specialist : Milind Finch MD, [address] [place], [address]. tel:[phone] cialist: Miya Armendariz, [address] [facility] [address], [place], [address]. tel:[phone] cialist: Woodrow Bullock MD, [address] [facility], [place], [address]. tel:[phone] erring Provider: Frank Edmonds MD, Family Medicine [address] [place] [address], [address]. tel:[phone] Family History Family Member Type Diagnosis Age At Onset Father Problem (finding) Heart disease Payers Payer name Insurance type Covered alliance party ID Authoriza tion(s) MEDICARE PART B [id number] Social History Type Description Quantity Date Captured [...] sore throat in the AM. She used [place] yesterday with relief. Stilhaving some difficulty swallowing [...] sore throat in the AM. She used [place] yesterday with relief. Stil having some difficulty [...] are variable and intense. 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 Additional information: Was in [facility] ER last week - left [...] have a normal upper endoscopy with her night filler several months ago. I will request records [...]
--- OUTSIDE RECORDS SUMMARY | 2024-03-14 15:06 | XMS_ITS | Encounter Summary ---
Author [place] [address] Care Team Providers Care Counselor Dormitory Name Role Phone Unavailable Primary Care Provider Unavailabl e Encounter Details Date Type Department Care Team (Late st Contact Info) Description 12/11/2019 Hospital Encounter TH HISTORIC ENCOUNTERS EASTERN CONVERSION ONLY Selma Ace MD [address] [place] [address] Palpitations Social History Tobacco Use Types Packs/Day [...] encounter Results * Myocard Perf Spect Multiple [id number] [facility] (12/11/2019 8:45 PM EDT) Anatomical Region Laterality Modality Other 12/11/2019 9:02 AM EDT Narrative 12/11/2019 8:45 PM EDT [facility] in Cardiology [address] [place], [place] ??[address] Regadenoson Stress Nuclear SPECT Report Name: ??TEJA DOUGLAS ?Exam Date: 12/11/2019 09:02 ?? Ordering Phys: SELMA ACE ?: ? 1970 ? Referring Phys:SELMA ACE Age: 49 ? Gender: F ? Ht (in):65 ??Wt (lb):163 BSA ??1.84 ?Technologist: ??JAM Procedure CPT: ?? 88230 Indications: ? Other chest pain ICD Codes: ? R07.89 Cardiac History: palpitations [facility] Appropriateness Criteria: Cardiac Medications: ?pravastatin, propranolol er Medications held in past 24 hours: STRESS PROTOCOL Pharmacologic Stress Agent:Regadenoson ( injected ?Dose: .4mg intravenously over 10 seconds and immediately followed by Stress Radionuclide Dose) Treadmill Activity:Not Used Resting HR (bpm):67 ?Resting BP (mmHg): ??118 ??/80 Peak HR (bpm): ?? 101 ?? Peak BP (mmHg): ? 124 ??/72 ?58.4 ??% MPHR ?Double Product: Symptoms BP ECG RESPONSE Resting ECG: ??Normal sinus rhythm Stress ECG: ?? No abnormal ST/T wave changes with pharmacologic stress. Arrhythmia: ?? None SPECT RESULTS Protocol:1 Day Sestamibi Rest Imaging: ?9.3 ?? mCi of Tc-99m Sestamibi was injected intravenously at rest. Resting SPECT images were [id number] ? minutes past injection. Post Stress Imagin.9 ??mCi of Tc-99m Sestamibi was injected intravenously at peak pharmacological stress. Post Stress SPECT images were [id number] ?minutes past tracer injection. Technical Quality: ?? Technically adequate study Raw Data Analysis: ?Prominent hepatic and gut uptake with subsequent relative decrease in counts in adjacent myocardium. Perfusion: ? Stress images show a normal pattern of perfusion. Resting images show no change in the pattern of perfusion. FUNCTION (calculated via Gated SPECT) - (Male / Female) Normal Values: Post Stress LV EF:74 ?% ?TID: ??1.09 EDV: ? 68 ?ml ? (93-153 / 61-99 ml)ESV: ?18 ?ml ? (31-71 / 17-35 ml) EDVI: ?37 ?ml/m?(46-76 / 36-56 ml/m??)ESVI: ? 10 ?ml/m?(16-36 / 10-20 ml/m??) Technical Quality: ?Gated SPECT appears to be visually accurate LV Size LV Regional Function: Gated images show normal wall motion. Gated images show normal systolic thickening. No wall motion or thickening abnormalities. Right Ventricle: ?Right ventricle appears normal in size. ECG Response to Stress:Normal ?Left Ventricular Function:Normal Perfusion Imaging: ?Probably Normal ?Risk Assessment: ? Low risk CONCLUSIONS Perfusion scan negative for [...] Procedure Note Historical, Cardiovascular Results, - 07/08/2020 [facility] Cardiology [address] [place] [address] Regadenoson Stress Nuclear SPECT Report Name: TEJA DOUGLAS Exam Date: 12/11/2019 09:02Ordering Phys: SELMA ACE : 1970Referring Phys:SELMA ACE Age: 49 Gender: F Ht (in):65 Wt (lb):163 BSA 1.84Technologist: FRANKIE Procedure CPT: 96297 Indications: Other chest pain ICD Codes: R07.89 Cardiac History: palpitations [facility] Appropriateness Criteria: Cardiac Medications: pravastatin, propranolol [...] injectedintravenously at rest. Resting SPECT images were inotidfi82 minutes past injection. Post Stress Imagin.9 mCi of Tc-99m Sestamibi was injectedintravenously at peak pharmacological stress. Post Stress SPECT images were iddjtmse60 minutes past tracerinjection. Technical Quality: Technically adequate [...] 18 ml(31-71 / 17-35 ml) EDVI: 37 ml/m?? (46-76 / 36-56 ml/m??)ESVI: 10ml/m?? (16-36 / 10-20 ml/m??) Technical Quality: Gated SPECT appears to be [...] Signed) Final Date: 11 December 2019 20:44 Cardiovascular Results Historical MD CV HISTORICAL CONV PROCEDURES documented in this encounter Visit Diagnoses Diagnosis Palpitations documented in this encounter
--- OUTSIDE RECORDS SUMMARY | 2024-03-14 15:06 | XMS_ITS | Encounter Summary ---
Author Organization [place] [address] Care Team Providers Care Outside Repairer Special Name Role Phone Unavailable Primary Care Provider Unavailabl e Encounter Details Date Type Department Care Team (Latest Contact Info) Description 01/23/2020 Hospital Encounter TH HISTORIC ENCOUNTERS EASTERN CONVERSION ONLY Ruiz Simon PA [address] [place] [address] Other diseases of larynx Social History Tobacco [...] Associated Diagnosis Comments CT NECK W/CONT OP (72894) Routine 01/23/2020 8:49 AM EST documented in this encounter Results * CT NECK W/CONT OP ([id number]) (01/23/2020 8:49 AM EST) Anatomical Region Laterality Modality Computed Tomogra phy 01/23/2020 8:26 AM EST Narrative 01/23/2020 8:49 AM EST EXAMINATION: [phone] - CT NECK W/CONTRAST WORKING DIAGNOSIS: ?? chest pain ADDITIONAL HISTORY: 49 years old Female, ??chest pain. TECHNIQUE: Multidetector spiral CT imaging at [...] to PACS. COMPARISON: None. OBSERVATIONS: Posterior fossa: ??Unremarkable. Paranasal sinuses: Unremarkable. Parotid glands: ?? No abnormality identified. Submandibular glands: ??No abnormality identified. Thyroid: ??Normal. Suprahyoid neck: ??Normal nasopharynx, oropharynx, oral cavity, parapharyngeal space, and retropharyngeal space. Infrahyoid neck: There is a hypodense structure along the anterior surface of the base of the epiglottis measuring 0.8 x 0.5 x 0.6 cm. This hypodense may represent a cyst. Otherwise unremarkable larynx, hypopharynx, and subglottis. Thoracic inlet: ??Unremarkable lung apices. Lymph nodes: ??No lymphadenopathy. Vascular structures: ??Unremarkable. IMPRESSION: Hypodense structure (0.8 x 0.5 x 0.6 cm) within the right preepiglottic space along the surface of the epiglottis. This could represent an epiglottic cyst. Visual inspection is recommended. Approved Electronically by: SARAY BARTLETT MD PhD on Jan 23 2020 ??8:47A Procedure Note Lavon Bartlett MD - 04/16/2020 EXAMINATION: [phone] - CT NECK W/CONTRAST WORKING DIAGNOSIS: chest [...] 2020 8:47A Ruiz AL IMG CT PROCEDURES documented in this encounter Visit Diagnoses Diagnosis Other diseases of larynx documented in this encounter
--- OUTSIDE RECORDS SUMMARY | 2024-03-14 15:06 | XMS_ITS | Clinical Summary ---
Author Organization [facility] Address [address] [place] [address] Phone Care Team Providers Care Contractor General Building Name Role Phone Physician, No Pcp Primary Care Provider Unavaila ble Allergies Active Allergy Reactions Criticality Noted Date Comments Cefazolin High 11/02/2020 Other reaction(s): HAND SWELLING Sulfa (Sulfonamide Antibiotics) 10/25/2021 Sulfamethoxazole-Trimethopr im Itching Medium 07/24/2020 Medications Medication Sig Dispensed Refills Start Date End Date Status esomeprazole (NexIUM) [address] capsule TAKE ONE CAPSULE BY MOUTH TWICE DAILY 180 capsule 02/01/2021 Active atorvastatin (LIPITOR) 40 mg tabletIndications:Mi xed hyperlipidemia TAKE 1 TABLET BY MOUTH EVERY DAY IN THE EVENING 90 tablet 3 04/13/2021 Active oxyCODONE-acetaminop hen (PERCOCET) 5-325 mg per tablet Take 1 tablet by mouth 3 (three) times a day if needed. Max Daily Amount: 3 tablets 06/30/2022 Active atorvastatin (LIPITOR) 80 mg tablet Take 1 tablet (80 mg total) by mouth at bedtime. Active dicyclomine (BENTYL) 20 mg tablet 01/31/2023 Active PARoxetine (PaxiL) 20 mg tabletIndications:Pa char disorder with agoraphobia,Mixed obsessional thoughts and acts TAKE 3 tabs (60mg) PO DAILY 90 each 5 05/02/2023 Active eszopiclone (LUNESTA) 3 mg tablet Take 1 tablet (3 mg total) by mouth at bedtime. Take immediately before bedtime Max Daily Amount: 3 mg 30 each 1 05/30/2023 Active Active Problems Problem Noted Date Diagnosed Date H/O heart artery stent 11/26/2021 Annual physical exam 10/26/2021 Assessment & Plan (10/26/2021 1:13 PM EDT): Annual exam Healthy and balanced diet Regular exercise/activity Reviewed the importance of weight control Seat belts at all times when driving No alcohol when driving No smoking Sunscreen protection and monthly skin checks Dental cleaning every 6 months Eye exam every 2 years Chronic myelopathy 04/21/2021 Anxiousness 04/18/2021 History of percutaneous coronary intervention Coronary artery disease invo lving [place] heart without angina pectoris 11/19/2020 Assessment & Plan (10/26/2021 1:38 PM EDT): [address] in last 2 years on Plavix Full cardiac work up CP is non cardiac she does not have angina and does not take the nitro ordered Paroxysmal extreme pain disorder 11/11/2020 Overview (09/16/2021): Intercostal Neuralgia symptoms since 2009 - diagnosed by Dr. De Anda after exclusion of multiple other etiologies following longitudinal monitoring of chronicity, location, and lack of any response to NSAID's. Dx confirmed as intercostal neuralgia by pain mgt Josué Pena DO. Dennise had an unsuccessful intercostal nerve block procedure 08/20/21. Pain mgt F/U appt in 3 wks NSTEMI (non-ST elevated myocardial infarction) 0 10/11/2020 Overview (10/12/2020): Added automatically from request for surgery [id number] Assessment & Plan (10/12/2020 3:40 PM EDT): - s/p cardiac cath-This is consistent with a nonhemodynamically significant stenosis. 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 De Anda after exclusion of multiple other etiologies following longitudinal monitoring of chronicity, location, and lack of any response to NSAID's. Has incidentally diagnosed coronary artery disease that has been confirmed by cardiology to not have been the cause of any of her generalized severe chest wall pain episodes Assessment & Plan (10/12/2020 3:42 PM EDT): - improved -Cardiac cath negative - CTA r/o PE, U/S bilateral lower legs- r/o DVT and ECHO -d/c morphine -po norco Prediabetes 09/09/2019 Overweight with body mass index (BMI) 25.0-29.9 08/08/2019 Medial epicondylitis of left elbow 04/30/2018 Intractable chronic migraine without aura 2017 Other chronic pain 01/31/2018 Mixed hyperlipidemia 06/26/2017 Assessment & Plan (10/26/2021 1:08 PM EDT): Discussed healthy life style changes, to avoid foods high in saturated fats, fried foods, eat food high in omega 3, walnuts, almonds, cook with olive oil. May take fish oil, flaxseed Continue Statin Assessment & Plan (10/12/2020 3:40 PM EDT): lipitor Migraine 06/11/2017 Assessment & Plan (10/26/2021 1:10 PM EDT): Keep a headache diary of your headache severity, frequency, medications taken, and any triggers. Women should keep track of their menstrual cycles to help determine if there is an association with the headaches. Bring the headache diary with you to your next appointment. Limit the use of [id number]-[id number] and prescription pain medications to 2 - 3 days per week at most. This will help lower the risk of developing medication overuse headache (also known as rebound headache ). The treatment of medication overuse headache consists of stopping the pain medications, and in some cases, starting a preventative medication. There are non-medication lifestyle changes that you can make that help reduce or prevent migraines. These <span style= text-indent: -24px; >include daily exercise, limiting caffeine, keeping a regular sleeping and waking schedule, eating meals at a set time every day, limiting pain medications to 2-3 days per week, and drinking of plenty of non-caffeinated, sugar-free fluids. Vitamin B12 1000mcg/day, riboflavin 100mg/day, and magnesium 500-1000mg a day may help prevent migraines. The triptans (the group of migraine medications including sumatriptan, rizatriptan, and many others) should not be used in people with uncontrolled high blood pressure, prior heart attack or stroke. They can cause chest and jaw pressure or tightness that typically goes away on its own and is not dangerous. If you develop severe chest pain or chest pain that does not go away after a short while, go to the emergency room. Do not use these medications if you develop high blood pressure or have had a stroke or heart attack. Gastroesophageal reflux disease 04/03/2017 Assessment & Plan (10/26/2021 1:08 PM EDT): Continue your same medication. Is there anything you can do on your own to improve your symptoms? Yes. You might feel better if you: ? ? Lose weight (if you are overweight) ? ? Raise the head of your bed by 6 to 8 inches (for example, by putting blocks of wood or rubber under 2 legs of the bed or a Styrofoam wedge under the mattress) ? ? Avoid foods that make your symptoms worse (examples include coffee, chocolate, alcohol, peppermint, tomatoes, spicy foods, foods high in acid and fatty foods) ? ? Cut down on the amount of alcohol you drink (if you drink) ? ? Stop smoking (if you smoke) ? ? Avoid tight fitting clothing ? ? Eat a bunch of small meals each day, rather than 2 or 3 big meals ? ? Avoid lying down for at least 2-3 hours after a meal Increased frequency of urination 01/21/2017 Non-cardiac chest pain 10/18/2016 Urge incontinence of urine 10/18/2016 Bladder irritability 08/23/2016 Assessment & Plan (11/01/2021 2:51 PM EDT): Stable, resolved per patient Continue management with urology Chronic pain syndrome 08/23/2016 Assessment & Plan (11/01/2021 3:03 PM EDT): Significant cardiac workup negative Pt has been referred to pain management they have done localized injections to chest wall muscles which she states had helped but on temporary a few hours. Recommendation were give for physical therapy, chiropractor, acupuncture, meditation, yoga. Patient is unwilling to try any of these and continued to request narcotics for pain, stating that if no one will treat her pain then she will just have to go to the ER. I was very selina with the patient and told her I will not prescribe narcotics for her and recommend she follow the pain managements recommendations. She states then why am I here, I was told you would address my pain I explained my role as a primary and assured her I would address her primary care need but would not manage her chronic pain. I have explained to her that there is no magic pill that will elevate her pain and she is going to have to find a way to live with the pain she is experiencing and utilizing these other modalities will help her to cope. Mixed anxiety and depressive disorder 08/23/2016 Assessment & Plan (10/12/2020 3:42 PM EDT): Valium/ paxil Mixed stress and urge urinary incontinence 08/23 Borderline personality disorder 08/22/2016 Temporomandibular joint disorder 08/22/2016 Dislocation of temporomandibular joint 6 Resolved Problems Problem Noted Date Diagnosed Date Resolved Date Acute stress disorder 12/15/20212023 Small fiber polyneuropathy 04/21/2021 1 Abnormal EKG 04/18/2021 11/01/2021 Rotator cuff tendinitis 01/24/202011/13 Tendinitis of right wrist 01/24/2020 Obsessive-compulsive disorder 08/07/2019 08/05/2020 Injury of tendon of rotator cuff 04/30/2018 11/01/2021 Disorder of maxillary sinus 09/11/2017 11/26/2021 Migraine without aura 06/26/20172021 Chronic back pain 05/10/2017 11/26/2021 Vertigo 05/10/2017 11/18/2020 Chronic obstructive lung disease 03/02/2017 11/01/2021 Chronic pelvic pain in female 10/18/2016 11/26/2021 Cervico-occipital neuralgia 08/22/2016 11/26/2021 Chronic constipation 08/22/2016 022 Assessment & Plan (10/26/2021 1:11 PM EDT): There are multiple over the counter treatments for constipation. Healthy bowels move at least once every day or two, are soft, and easy to pass. The best initial way to prevent constipation is to get enough fiber and fluid in your diet. Fiber is common in whole grain foods such as cereal, as well as many fruits and vegetables. If you find you need to take something to help your bowels move, consider any of the following. If you find you need to use something frequently, please discuss this with your doctor. - Miralax 17gm (one capful) as needed. Most people need this once a day, but it is okay to use it every other day or even twice a day. - Milk of magnesia 1-2 teaspoons once or twice a day as needed. - Fiber supplements - tablets, powders, granola bars, wafers are all helpful to add bulk to stool - Magnesium oxide tablets 250mg 2-3 times per day. - Colace (docusate sodium) - 100mg twice a day acts as a stool softener to prevent constipation. This cannot be used to treat constipation. Mixed stress and urge urinary incontinence 08/22/2016 10/12/2020 Chronic thoracic back pain 01/18/2016 1 Fibromyalgia 03/16/2015 11/26/2021 Immunizations Name Administration Dates Next Due Influenza Quadrivalent, 0.5m l, preservative free (Fluarix; FluLaval; Fluzone) ages 6mo and older (Afluria) 3yo and older 11/14/2016 Influenza Quadrivalent, with preservative (Fluzone; Afluria) 6mo and older 01/18/2016 [employer] SARS-CoV-2 COVID -19, vector-nr, rS-Ad26, preservative free 07/08/2020 Surgical History Surgery Date Site/Laterality Comments CYSTOSCOPY x4 DILATION AND CURETTAGE OF UTERUS x3 KNEE ARTHROSCOPY miniscus tear RECTAL BOTOX INJECTION 10/09/2019 RECTAL BOTOX INJECTION Botox injection RECTAL BOTOX INJECTION 11/07/2018 CYSTOSCOPY 12/28/2016 TONSILLECTOMY 08/25/1999 OTHER SURGICAL HISTORY left knee torn miniscus left hand plasty surgery due to dog bite 5 cysts removed bilateral groin CARDIAC PROCEDURE stents TONSILLECTOMY ADENOIDECTOMY, BILATERAL MYRINGOTOMY AND TUBES PROCEDURE: OR TONSILLECTOMY & ADENOIDECTOMY <AGE 12 OTHER SURGICAL HISTORY PROCEDURE: OR ARTHRS KNEE W/MENISCECTOMY MED&LAT W/SHAVING; COMMENT: left side OTHER SURGICAL HISTORY PROCEDURE: OR DILATION & CURETTAGE DX&/THER NONOBSTETRIC; COMMENT: 3 miscarriages Medical History Medical History Date Comments Cardiovascular disease Mixed hyperlipidemia Gastrointestinal complaint GERD (gastroesophageal reflux disease) Constipation Genitourinary complaints Dysuria Acute cystitis without hematuria Incontinence Recurrent urinary tract infection History of head, eyes, ears, nose, and throat (HEENT) surgery Sore in nose Hyperglycemia Vitamin D deficiency Back pain Problem of nerve network of low back and pelvis Migraines Small fiber neuropathy Psychiatric complaint Other chest pain Pain of upper abdomen Urinary incontinence Chondrocostal junction syndrome (tietze) Fibromyalgia 12/18/2008 DX:Fibromyalgia Depression 12/18/2008 DX:Depression Anxiety 12/18/2008 DX:Anxiety Nausea 12/18/2008 DX:Nausea TMJ (temporomandibular joint disorder) 05/08/2012 DX:TMJ (temporomandibular joint disorder) Family History Medical History Relation Name Comments Heart attack Father Heart disease Father Multiple sclerosis Father Other cancer Maternal Grandfather worked with chemicals malignant neoplastic disease Maternal Grandfather Arthritis Mother back chronic obstructive lung disease Mother hypertensive disorder Mother neoplasm of brain Mother's Sister Lung cancer Other 1 maunt Relation Name Status Comments Father Maternal Grandfather Mother Mother's Sister Other 1 Other 2 Social History Tobacco Use Types Packs/Day Years Used Date Smoking Tobacco: Every Day Cigarettes 1 30.8 Started: 1989; Last attempted to quit: 12/2019 Smokeless Tobacco: Never Tobacco Cessation:Counseling Given: Not Answered Comments:Smoking - how much: 02/16 PPD Alcohol Use Standard Drinks/Week Comments No [...] file Not on file Not on file Obstetrics History Last Filed Vital Signs Vital Sign Reading Time Taken Comments Blood Pressure 151/90 02/02/2022 10:59 AM EST Pulse 84 02/02/2022 10:59 AM EST Temperature 37.8 ??C (100.1 ??F) 02/02/2022 7:[address] Respiratory Rate 16 02/02/2022 10:59 AM EST Oxygen Saturation 99% 02/02/2022 10:59 AM EST Inhaled Oxygen Concentration - - Weight 81.6 kg (180 lb) 02/02/2022 7:36 AM EST Height 165.1 cm (5' 5 ) 02/02/2022 7:36 AM EST Body Mass Index 29.95 02/02/2022 7:36 AM EST Plan of Treatment Health Maintenance Due Date Last Done Comments Breast Cancer Screening 1972 Pneumococcal Vaccine: Pediatrics (0 to 5 Years) and At-Risk Patients (6 to 64 Years) (1 of 2 - PCV) 1978 DTaP,Tdap,and Td Vaccines (1 - Tdap) 1991 Hepatitis B Vaccines (1 of 3 - 19+ 3-dose series) 1991 Zoster Vaccines (1 of 2) 1991 Colorectal Cancer Screening: Colonoscopy 02/28/2019 Medicare Annual Wellness Visit 02/28/2019 Osteoporosis Screening (Bone Density Screening) 02/28/2019 Social Influencers of Health Screening 02/28/2019 COVID-19 Vaccine (2 - Arleen risk series) 08/05/2020 07/08/2020 Depression Screening 10/26/2022 10/26/2021 Hypertension/CHF/CAD Annual BMP Blood Test 02/02/2023 02/02/2022, 11/29/2021, 11/22/2021, Additional history exists Influenza Vaccine (#1) 2023 3, 11/14/2016, 01/18/2016 Cervical Cancer Screening: HPV 12/01/2024 12/02/2019 Cholesterol Screening (Lipid Panel) 10/26/2026 10/26/2021, 11/29/2019 HIV Screening Completed 10/26/2021 Hepatitis C Screening Completed 10/26/2021, 022 HIB Vaccines Aged Out No longer eligi ble based on patient's age to complete this topic HPV Vaccines Aged Out No longer eligi ble based on patient's age to complete this topic Hepatitis A Vaccines Aged Out No long er eligible based on patient's age to complete this topic IPV Vaccines Aged Out No longer eligi ble based on patient's age to complete this topic MMR Vaccines Aged Out No longer eligi ble based on patient's age to complete this topic Meningococcal ACWY Vaccine Aged Out N o longer eligible based on patient's age to complete this topic RSV Immunization Patients Under 20 months Aged Out No longer eligible based on patient's age to complete this topic Varicella Vaccines Aged Out No longer eligible based on patient's age to complete this topic Medical Devices Implanted Type Area Flag Signalman Device Identifier Shelf Expiration Date Model / Serial / Lot Stents Left: Heart Procedures Procedure Name Priority Date/Time Associated Diagnosis Comments COMPREHENSIVE METABOLIC PANEL STAT 02/02/2022 7:58 AM EST HEPATITIS PANEL, ACUTE Routine 2:27 PM EDT Encounter for hepatitis C screening test for low risk patient HIV 1, HIV 2 ANTIBODY SCREEN, P24 ANTIGEN WITH REFLEX TO DIFFERENTIATION Routine 10/26/2021 2:27 PM EDT Encounter for screening for HIV LIPID PANEL Routine 10/26/2021 2:27 PM EDT Mixed hyperlipidemia HM HPV Routine 12/02/2019 from Last 3 Months or Most Recently Relevant to Health Maintenance Results * (ABNORMAL) Comprehensive metabolic panel (02/02/2022 7:58 AM EST) Sodium 143 136 - 145 mmol/L LAB CHEMISTRY METHOD 02/02/2022 8:51 AM [facility] Potassium 3.1(L) 3.5 - 5.1 mmol/L LAB CHEMISTRY METHOD 02/02/2022 8:51 AM [facility] Chloride 114(H) 98 - 107 mmol/L LAB CHEMISTRY METHOD 02/02/2022 8:51 AM [facility] CO2 21 21 - 32 mmol/L LAB CHEMISTRY METHOD 02/02/2022 8:51 AM [facility] Anion Gap 8 3 - 11 LAB CHEMISTRY METHOD 02/02/2022 8:51 AM [facility] Glucose 104(H) 70 - 99 mg/dL LAB CHEMISTRY METHOD 02/02/2022 8:51 AM [facility] BUN 10 7 - 18 mg/dL LAB CHEMISTRY METHOD 02/02/2022 8:51 AM [facility] Creatinine 0.80 0.55 - 1.02 mg/dL LAB CHEMISTRY METHOD 02/02/2022 8:51 AM [facility] eGFR 90 >=60 mL/min/1. 73m2 LAB CHEMISTRY METHOD 02/02/2022 8:51 AM [facility] Comment: The MDRD GFR formula is valid only for adults between ages 18 and 70. Effective November 21, 2021, calculation based on the??Chronic Kidney Disease Epidemiology Collaboration (CKD-EPI) equation refit??without adjustment for race. BUN/Creatinine Ratio 12.5 12.0 - 20.0 LAB CHEMISTRY METHOD 02/02/2022 8:51 AM [facility] Calcium 9.0 8.5 - 10.1 mg/dL LAB CHEMISTRY METHOD 02/02/2022 8:51 AM [facility] AST (SGOT) 12(L) 15 - 37 unit/L LAB CHEMISTRY METHOD 02/02/2022 8:51 AM [facility] ALT (SGPT) 17 13 - 56 unit/L LAB CHEMISTRY METHOD 02/02/2022 8:51 AM [facility] Alkaline Phosphatase 72 42 - 98 unit/L LAB CHEMISTRY METHOD 02/02/2022 8:51 AM [facility] Total Protein 7.0 6.4 - 8.2 g/dL LAB CHEMISTRY METHOD 02/02/2022 8:51 AM [facility] Albumin 3.8 3.4 - 5.0 g/dL LAB CHEMISTRY METHOD 02/02/2022 8:51 AM EST [facility] Total Bilirubin 0.6 0.2 - 1.0 mg/dL LAB CHEMISTRY METHOD 02/02/2022 8:51 AM EST [facility] Blood Venous blood specimen / Unknown Venipuncture / Unknown 02/02/2022 7:58 AM EST 02/02/2022 8:04 AM EST Adonis Stephen DO LAB BLOOD ORDERABLES [facility] [address] [place] [address] * HIV 1, HIV 2 antibody screen, P24 antigen with reflex to differentiation (10/26/2021 2:27 PM EDT) Pathologist [facility] HIV Combo AB/AG Negative/ Nonreacti ve Negative/ Nonreacti ve LAB CHEMISTRY METHOD 10/27/2021 5:14 PM EDT [facility] Blood Venous blood specimen / Unknown Venipuncture / Unknown 10/26/2021 2:27 PM EDT 10/26/2021 2:27 PM EDT Narrative [facility] - 10/27/2021 5:14 PM EDT 1. The Advia Centaur HIV AG/AB COMBO is a 4th Generation Assay that screens for the presence of antibodies to HIV-1 (including Group O ), HIV-2 and the HIV p24 Antigen in serum using the Advia Centaur XP System. 2. The assay is intended to be used as an aid in diagnosis of HIV infection in pediatric, adult populations and women. 3. The performance of this assay has not been clinically validated in patients less than 2 years old. 4. A REACTIVE result does not distinguish between HIV-1 AB, HIV-1 Group O AB, HIV-2 AB and HIV-1 p24 AG. 5. Only REACTIVE results are reported to [facility]. 6. REACTIVE results will be sent to our Reference Laboratory for HIV-1 AB, HIV-2 AB differentiation, and HIV-1 RNA detection by Preconstruction Manager-Mediated Amplification (TMA) and if positive, quantitation by Real-Time PCR. Gale Howard NP LAB BLOOD ORDERABLES [facility] [address] [place] [address] * Hepatitis panel, acute (10/26/2021 2:27 PM EDT) Hep A Ab, IgM Negative Negative 10/28/2021 4:05 AM EDT [facility] HBsAg Screen Negative Negative 10/28/2021 4:05 AM EDT [facility] Hep B Core Ab, IgM Negative Negative 10/28/2021 4:05 AM EDT [facility] HCV Ab <0.1 0.0 - 0.9 s/co ratio 10/28/2021 4:05 AM EDT [facility] Blood Venous blood specimen / Unknown Venipuncture / Unknown 10/26/2021 2:27 PM EDT 10/26/2021 2:27 PM EDT Narrative [facility] - 10/28/2021 4:05 AM EDT Performed at: ??01 - [facility] [address] ??[id number] Cylinder Tester: Yahir Moss MD, Phone: ??[phone] Gale Howard NP LAB BLOOD ORDERABLES [facility] * (ABNORMAL) Lipid panel (10/26/2021 2:27 PM EDT) Cholesterol 153 <200 mg/dL LAB CHEMISTRY METHOD 10/26/2021 4:57 PM EDT [facility] Triglycerides 157(H) <150 mg/dL LAB CHEMISTRY METHOD 10/26/2021 4:57 PM EDT [facility] HDL 49(L) >59 mg/dL LAB CHEMISTRY METHOD 10/26/2021 4:57 PM EDT [facility] Comment: <35 mg/dl is the cut-point for increased Coronary Heart Disease (CHD) risk. LDL Calculated 73 0 - 99 mg/dL LAB CHEMISTRY METHOD 10/26/2021 4:57 PM EDT [facility] VLDL Cholesterol Francisco 31.4(H) <=30 mg/dL LAB CHEMISTRY METHOD 10/26/2021 4:57 PM EDT [facility] Blood Venous blood specimen / Unknown Venipuncture / Unknown 10/26/2021 2:27 PM EDT 10/26/2021 2:27 PM EDT Gale Howard NP LAB BLOOD ORDERABLES [facility] [address] [place] [address] * Cervical Cancer Screening: HPV (12/02/2019) Pathologist [facility] Cervical Cancer Screening: HPV abstracted Historical Provider MD YAHAIRA Tovar from Last 3 Months or Most Recently Relevant to Health Maintenance Advance Directives * Full Code - Default (Latest Code Status on File) Date Activated Date Inactivated Comments 10/12/2020 3:17 PM 10/13/2020 2:34 PM This is orde r is used when code status has not been discussed with the patient, or code status is otherwise unknown/unconfirmed To update the patient's code status, place a code status order. Do not modify or discontinue any currently active code status orders. Care Teams Contractor General Building Relationship Specialty Start Date End Date Physician, No Pcp PCP - General 02/02/22
== END 2024-03-14 11:32 | disposition home or self-care (01) ==
PROVIDERS: PCP Internal Medicine; Visit Provider Internal Medicine Hypertension Specialist
DX: E87.6 Hypokalemia (principal); N39.46 Mixed incontinence
CPT/HCPCS: 99214

== ENCOUNTER → 2024-03-14 11:12 | Outpatient (BNVA) | payer MEDICARE, MEDICAID, SELFPAY | PROVIDERS: PCP Internal Medicine; Visit Provider Internal Medicine Hypertension Specialist | DX: E87.6 Hypokalemia (principal); N39.46 Mixed incontinence | CPT/HCPCS: 99212 ==

== ENCOUNTER 2024-03-27 08:17 | Outpatient (AMB) | payer MEDICARE, MEDICAID, SELFPAY ==
[2024-03-27 08:18] VITALS: BP 130/78; PULSE 107; TEMP 36.6; O2SAT 97; BMI 18.1
--- NOTE | 2024-03-27 08:18 | A.OFFPC_ITS ---
Vital Signs 03/27/24 08:18 Height 5 ft 5 in Weight 108 lb 8 oz BMI 18.1 BP 130/78 Blood Pressure Location Rt brachial Position Sitting Pulse 107 H Pulse Source Pulse Oximeter Temp 97.9 F Temp Source Oral Pulse Oximetry (%) 97 Oxygen Delivery Method Room Air Intake Visit Reasons: Meds review Allergies cefazolin [From Ancef] Allergy (Mild, Verified 03/27/24 08:19) Swelling Medication List - Last Reconciled 03/27/24 by Ciro White MD atorvastatin 80 mg PO QPM clopidogrel 75 mg PO DAILY cyclobenzaprine 5 mg PO Q8H PRN magnesium oxide 400 mg PO DAILY omeprazole 20 mg PO DAILY ondansetron HCl 4 mg PO ONCE PRN 90 days oxycodone 5 mg PO TID paroxetine HCl 20 mg PO DAILY potassium chloride ER 20 mEq PO BID PRN solifenacin 10 mg PO DAILY Tobacco use date assessed: 03/27/24 Dental Screening Dental Screen Date: 03/27/24 Did you have a dental visit in the last 12 months?: Yes Did you have a dental problem in the last 6 months where you did not have access to dental care?: No Was dental information given to patient?: Patient has dentist HPI Meds review HPI Details History - The patient is a 54-year-old female pr esenting for medication refill - Recurring migraines have been troubles ome; I have placed referral for patient to see neurologist 2 times, and patient has not pursue it I have placed a 3rd referral and give her a telephone number to call in book her own appointment, she also have a slight tremor in her head that she need to be evaluated - Migraines are coupled with nausea and photophobia. 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 She is receiving oxycodone for pain management. Refill sent - Potassium deficiency is now made manag ed by Nephrology - Reports of muscle spasm; current treat ment includes cyclobenzaprine. - Present with gastroesophageal reflux d isease managed with omeprazole. - Depression managed with psychiatric me dications; through psychiatrist, she is also seeing therapist. weight changes and improved appetite noted to have impacted mental health. - urinary incontinence for which the pat ient is taking bladder medication. Problem List - Neuralgia - Potassium deficiency - Muscle spasm - Gastroesophageal reflux disease - Depression - Urinary incontinence - smoking Patient Instructions - continue follow up with Nephrology. - Maintain a diet with three small meals daily, including fruits. - Increase water intake to support overa ll health. - Monitor bowel movements and continue d ietary adjustments to support digestive health. - Avoid smoking; work towards smoking ce ssation support. - Continue medication regimen as prescri bed and keep medications organized to ensure compliance. Review of Systems. - General: No fever no chills - Neurological: No headaches no dizziness - Ear nose throat: No sore throat no hearing difficulty no ear pain - Cardiovascular: No syncope, no chest pain, no palpitations - Gastrointestinal: No nausea vomiting or diarrhea - Endocrine: No polyuria polydipsia no heat intolerance - Genitourinary: No dysuria , no blood in urine Physical Exam - General: No acute distress - HEENT: No acute findings - Neck: Supple - Respiratory system: Able to talk in f ull sentences, no audible wheeze - cardiovascular: S1-S2 regular in rat e and rhythm - Gastrointestinal: No pain - Extremities: No new findings - AUTO APPRAISER: Alert awake oriented x3 motor se nsory intact - Skin: Normal turgor PFSH Medical History Obsessive compulsive disorder Agoraphobia Personality disorder Anxiety and depression 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) Surgical History Hx of dilation and curettage Hx of knee surgery Hx of tonsillectomy Family History Father Heart attack Hypertension Mother Hypertension Social History Household Members Other:: mom Housing: Condominium Alcohol intake: never Patient Tobacco Use Status: Current everyday Tobacco user Tobacco use type: Cigarette Years Smoked: 32 years e-Cigarette/Vaping Use: Never Used Second Hand Smoke Exposure: No service: No Current occupational status: disabled Current occupational exposures/hazards: No Sexual orientation: Straight/Heterosexual Gender identity: Female Cognitive needs: No Hearing needs: No Vision needs: Yes Questionnaire Thrive Questionnaire Date Thrive assessed: 03/27/24 I am a: Patient What is your living situation today?: I have a steady place to live Within the past 12 months, did the food you bought not last and you didn't have the money to get more?: I choose not to answer this question Within the past 12 months, did you worry whether your food would run out before you got money to buy more?: Never true Do you have trouble paying for medicines?: No Do you have trouble getting transportation to medical appointments?: No Do you have trouble paying your heating and electricity bill?: No Do you have trouble taking care of your child, family member or friend?: No Do you have trouble with day-to-day activities such as bathing, preparing meals, shopping, managing finances, etc.?: No Are you currently unemployed and looking for a job?: No Are you interested in more education?: No Please select the resources that you would like help with: None Currently or been in a relationship where the following occur: No concerns reported THRIVE Score: 0 AUDIT C Alcohol Use Questionnaire (AUDIT-C) 1. How often do you have a drink containing alcohol?: Never 3. How often do you have six or more drinks on one occasion?: Never Total Score: 0 Score Reviewed/Action Taken: Yes FIFI-7 AMB Questionnaire FIFI-7 Date FIFI - 7 assessed: 02/28/24 Source: Developed by Drs. Dallas Keller, Cassie Frankel, Glynn Blackwell and colleagues, with an educational kane from [employer]. Physical exam (Primary Care) Vital Signs: Last Vital Signs Temp 97.9 F 03/27/24 08:18 Pulse 107 H 03/27/24 08:18 BP 130/78 03/27/24 08:18 Pulse Ox 97 03/27/24 08:18 Oxygen Delivery Method Room Air 03/27/24 08:18 BMI result Body Mass Index 18.1 Tobacco/Smoking Status: Tobacco use Status Tobacco use date assessed 03/27/24 03/27/24 08:25 Patient Tobacco Use Status Current everyday Tobacco 03/27/24 08:25 Tobacco use type Cigarette 03/27/24 08:25 e-Cigarette/Vaping Use Never Used 03/27/24 08:25 Thrive Assessment: Date of Thrive Assessment Date Thrive assessed 03/27/24 03/27/24 08:25 Currently or been in a relationship where the following occur: No concerns reported Coding Level of Care Code Est Pt Level 4 (04660) Complex EM visit Add On G2211 Diagnoses Headache syndrome G44.89 Benign head tremor G25.0 Electrolyte abnormality E87.8 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 Narcotic dependency, continuous F11.20 Anxiety, generalized F41.1 Recurrent major depressive disorder, in partial remission F33.41 Active/Remission status: in partial remission Impaired fasting blood sugar R73.01 Mixed stress and urge urinary incontinence N39.46 Urinary Incontinence type: mixed stress and urge incontinence Smokes 1 pack of cigarettes per day F17.210 Assessment & Plan Assessment & Plan (1) Headache syndrome: Code(s): G44.89 - Other headache syndrome Category: Medical (2) Benign head tremor: Code(s): G25.0 - Essential tremor Category: Medical (3) Electrolyte abnormality: Code(s): E87.8 - Other disorders of electrolyte and fluid balance, not elsewhere classified Category: Medical (4) Intercostal neuralgia: Onset Date: Unknown Code(s): G58.8 - Other specified mononeuropathies Category: Medical (5) Narcotic dependency, continuous: Code(s): F11.20 - Opioid dependence, uncomplicated Category: Medical (6) Anxiety, generalized: Code(s): F41.1 - Generalized anxiety disorder Category: Medical (7) Major depression, recurrent: Code(s): F33.9 - Major depressive disorder, recurrent, unspecified Category: Medical Qualifiers: Active/Remission status: in partial remission Qualified Code(s): F33.41 - Major depressive disorder, recurrent, in partial remission (8) Impaired fasting blood sugar: Code(s): R73.01 - Impaired fasting glucose Category: Medical (9) Urine incontinence: Comment: Chronic. With microscopic hematuria. Being followed by Urology Code(s): R32 - Unspecified urinary incontinence Category: Medical Qualifiers: Urinary Incontinence type: mixed stress and urge incontinence Qualified Code(s): N39.46 - Mixed incontinence (10) Smokes 1 pack of cigarettes per day: Code(s): F17.210 - Nicotine dependence, cigarettes, uncomplicated Category: Social Hx Plan History - The patient is a 54-year-old female presenting for medication refill - Recurring migraines have been troublesome; I have placed referral for patient to see neurologist 2 times, and patient has not pursue it I have placed a 3rd referral and give her a telephone number to call in book her own appointment, she also have a slight tremor in her head that she need to be evaluated - Migraines are coupled with nausea and photophobia. 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 She is receiving oxycodone for pain management. Refill sent - Potassium deficiency is now made managed by Nephrology - Reports of muscle spasm; current treatment includes cyclobenzaprine. - Present with gastroesophageal reflux disease managed with omeprazole. - Depression managed with psychiatric medications; through psychiatrist, she is also seeing therapist. weight changes and improved appetite noted to have impacted mental health. - urinary incontinence for which the patient is taking bladder medication. Problem List - Neuralgia - Potassium deficiency - Muscle spasm - Gastroesophageal reflux disease - Depression - Urinary incontinence - smoking Patient Instructions - continue follow up with Nephrology. - Maintain a diet with three small meals daily, including fruits. - Increase water intake to support overall health. - Monitor bowel movements and continue dietary adjustments to support digestive health. - Avoid smoking; work towards smoking cessation support. - Continue medication regimen as prescribed and keep medications organized to ensure compliance. Orders: Referrals Neurology Referral G25.0 - Essential tremor, G44.89 - Other headache syndrome Medications: Refilled oxycodone Partial Fill upon patient request. 5 mg PO Q8H 30 days PRN 90 tabs 0RF pain
--- OUTSIDE RECORDS SUMMARY | 2024-03-27 08:48 | XMS_ITS | Encounter Summary ---
Author Organization [place] [address] Care Team Providers Care Manager Presentation Name Role Phone Unavailable Primary Care Provider Unavailabl e Encounter Details Date Type Department Care Team (Late st Contact Info) Description 11/25/2019 Hospital Encounter TH HISTORIC ENCOUNTERS EASTERN CONVERSION ONLY Selma Ace MD [address] [place] [address] Other chest pain Social History Tobacco Use [...] this encounter Results * TTE W/Doppler Complete [id number] [facility] (11/26/2019 10:09 AM EDT) Anatomical Region Laterality Modality Other 11/25/2019 8:17 AM EDT Narrative 11/26/2019 10:09 AM EDT [facility] [address] [place], [place] ??[address] Transthoracic Echocardiogram Report Name: ?? WEIR, TEJA ?Exam Date: ?? 11/25/2019 08:17 ?? Ordering Physician:SELMA ACE Age: ?49 ? Gender: ??F ? Ht (in):65 ?Wt (lb): 168 ?Referring Physician:SHIRLEY WOLF ?BSA: ?? 1.87 ? Leather Softener: ? DAM : ?1970 ?BP (mmHg): ??108 ?/ 70 Exam Location: [facility] Type of Exam: Adult CPT's: ?64561 Clinical Indications:OTHER CHEST PAIN / LIGHTHEADED / [...] Procedure Note Historical, Cardiovascular Results, - 07/08/2020 [facility] [address] [place] [address] Transthoracic Echocardiogram Report Name: TEJA DOUGLAS Exam Date: 11/25/2019 08:17Ordering Physician:SELMA ACE Age: 49 Gender: F Ht (in):65 Wt (lb): 168Referring Physician:SHIRLEY WOLF BSA: 1.87Sonographer: TREVOR : 1970 BP (mmHg): 108 / 70 Exam Location: [facility] Type of Exam: Adult CPT's: 52787 Clinical Indications:OTHER CHEST PAIN / LIGHTHEADED / [...] E to A Ratio 1.85 TR Peak Idlmrebz482.00 cm/ MV Deceleration Time 153.54 ms TR Peak Eaffxfcn60.28 mmHg Culeln Nelson MD, [facility] (Electronically Signed) Final Date: 26 November 2019 10:08 us Cardiovascular Results Historical CV HISTORIC AL CONV PROCEDURES Final Result * Stress Test Cardiac Tracing [address] [facility] (11/25/2019 7:37 PM EDT) Anatomical Region Laterality Modality Other 11/25/2019 9:09 AM EDT Narrative 11/25/2019 7:37 PM EDT [facility] in Cardiology [address] [place], [place] ??[address] Stress Test Report Name: ??CARLOS TEJA ? Exam Date: 11/25/2019 09:09 ?Ordering Phys: SELMA ACE ?Exam Location: [facility] ? Referring Phys:SHIRLEY WOLF Age: 49 ? Gender: F ? Ht (in):65 ??Wt (lb):163 BSA ??1.84 ?Technologist: ??debo, rn : ?1970 Procedure CPT: ?? 76011 Indications: ? Other chest pain, Palpitations, Other forms of dyspnea, Bradycardia, unspecified ICD-9 Codes: ? R07.89 ??R00.2 ??R06.09 ??R00.1 Patient History: chest pain, dyspnea, palpitations Medications: ? propanolol, pravastatin STRESS TEST ? Oiv Protocol ?Exercise Duration (min:sec):6:00 ?METS: ?? 7.0 mets Resting HR (bpm):79 ?Resting BP (mmHg): ??132 ??/78 ?MPHR: ?? 147 ?Target HR: ? 7499 Peak HR (bpm): ?? 134 ?? Peak BP (mmHg): ? 152 ??/86 ?% MPHR: ?? 77 ? Double Product:61612 BP Response: ? Normal blood pressure response [...] Note Historical, Cardiovascular Results, MD - 07/08/2020 [facility] [place] [address] Stress Test Report Name: TEJA DOUGLAS Exam Date: 11/25/2019 09:09Ordering Phys: SELMA ACE Exam Location: [facility]erring Phys:SHIRLEY LUCIANO Age: 49 Gender: F Ht (in):65 Wt (lb):163 BSA 1.84Technologist: anny edmondson : 1970 Procedure CPT: 50157 Indications: Other chest pain, Palpitations, Other forms of dyspnea,Bradycardia, unspecified ICD-9 Codes: R07.89 R00.2 R06.09 R00.1 Patient History: chest pain, dyspnea, palpitations Medications: propanolol, pravastatin STRESS TEST Ovi Protocol Exercise Duration(min:sec):6:00 METS: 7.0 mets Resting HR (bpm):79 Resting BP (mmHg): 132 /78 MPHR: 147Target HR: 7499 Peak HR (bpm): 134 Peak BP (mmHg): 152 /86 % MPHR: 77Double Product:48955 BP Response: Normal blood pressure response during [...]
--- OUTSIDE RECORDS SUMMARY | 2024-03-27 08:49 | XMS_ITS | Encounter Summary ---
Author Organization [place] [address] Care Team Providers Care Burlapper Name Role Phone Frank Edmonds MD Primary Care Provider Encounter Details Date Type Department Care Team (Late st Contact Info) Description 06/11/2020 10:20 AM EDT Hospital Encounter [facility] [address] [facility] 2[address] [place] [id number] Thaddeus De Anda MD [address] [place] [address] Social History Tobacco Use Types Packs/Day Years [...] money to get more. Never true 10/14/2020 [facility] Answer Date Re corded How [...] on filedocumented in this encounter Care Teams Burlapper Relationship Specialty Start Date End Date Frank Edmonds MD [address] [address] PCP - General 05/20/20 10/25/21 documented as of this encounter
--- OUTSIDE RECORDS SUMMARY | 2024-03-27 08:49 | XMS_ITS | Encounter Summary ---
Author Organization [place] [address] Care Team Providers Care Partition Making Machine Operator Name Role Phone Unavailable Primary Care Provider Unavailabl e Encounter Details Date Type Department Care Team (Latest Contact Info) Description 01/23/2020 Hospital Encounter TH HISTORIC ENCOUNTERS EASTERN CONVERSION ONLY Ruiz Simon PA [address] [place] [address] Other diseases of larynx Social History Tobacco [...] money to get more. Never true 10/14/2020 [facility] Answer Date Re corded How [...] Associated Diagnosis Comments CT NECK W/CONT OP (38761) Routine 01/23/2020 8:49 AM EST documented in this encounter Results * CT NECK W/CONT OP (13263) (01/23/2020 8:49 AM EST) Anatomical Region Laterality Modality Computed Tomogra phy 01/23/2020 8:26 AM EST Narrative 01/23/2020 8:49 AM EST EXAMINATION: [phone] - CT NECK W/CONTRAST WORKING DIAGNOSIS: ?? [...] Note Lavon Bartlett MD - 04/16/2020 EXAMINATION: [phone] - CT NECK W/CONTRAST WORKING DIAGNOSIS: chest [...]
--- OUTSIDE RECORDS SUMMARY | 2024-03-27 08:49 | XMS_ITS | Continuity of Care Document ---
Author Organization [facility] Address [address] [place] [address] Phone Care Team Providers Care It Auditor Name Role Phone Jennifer BUSH, FACS, FAAOA, [...] Copied on Encounter Office/Outpa tient Visit, Est [facility], [address] [place] [address], [address] [place] [address] , tel:[phone] Rodriguez Lump in throat (chief complaint) sore throat (chief complaint) Mass of epiglottisLaryngop haryngeal reflux (LPR)Dysphagia, unspecified typeAnxietyH/O heart artery stent 1 Jennifer Gusmana. [address] [place] [address], [id number], . tel:[phone] Specialist : Milind Finch MD, [address] [place] [address], [address]. tel:[phone] cialist: Miya Armendariz MD, [address] [facility] [address], [place], [address]. tel:[phone] cialist: Woodrow Bullock MD, [address] [place] [address], [address]. [phone] erring Provider: Frank Edmonds MD, Family Medicine [address] [place] [address], [address]. tel:[phone] [facility], [address] [place] [address], [address] [place] [address] , tel:[phone] Flex No Information 1 Flex Romeo. [address] [place] [address], [address] [place] [address], . tel:[phone] Referring Provider: Frank Edmonds MD, Family Medicine [address] [place] [address], [id number]. tel:[phone] [facility], [address] [place] [address], [address] [place] [address] , tel:[phone] Aurora No Information 0 No Information Referring Provider: Frank Edmonds MD, Family Medicine [address] [place] [address], [address]. tel:[phone] Office/Outpa tient Visit, [facility], [address] [place] [address], [address] [place] [address] , tel:[phone] Flex Dysphagia follow up (chief complaint) Current smokerDysphagia, unspecified typeAnxietyLaryngo pharyngeal reflux (LPR)Mass of epiglottis 0 Flex Romeo. [address] [place] [address], [id number], . tel:[phone] Specialist : Milind Finch MD, [address] [place] [address], [id number]. tel:[phone] cialist: Miya Armendariz MD, [address] [place] [address], [address]. tel:[phone] cialist: Woodrow Bullock MD, [address] [place] [address], [address]. tel:[phone] erring Provider: Frank Edmonds MD, Family Medicine [address] [place] [address], [address]. tel:[phone] [facility], [address] [place] [address], [address] [place] [address] , tel:[phone] Patient Portal No Information 0 Jennifer Colón. [address] [place] [address], [address] [place] [address], . tel:[phone] Office/Outpa tient Visit, [facility], [address] [place] [address], [address] [place] [address] , tel:[phone] Simon Dysphagia (chief complaint) Dysphagia, unspecified typeLaryngopharyng eal reflux (LPR)AnxietyMass of epiglottisCurrent smoker 0 No Meter Readers Supervisor : Milind Finch MD, [address] [place] [address], [address]. tel:[phone] cialist: Miya Armendariz MD, [address] [place] [address], [address]. tel:[phone] cialist: Woodrow Bullock MD, [address] [place] [address], [address]. tel:[phone] erring Provider: Frank Edmonds MD, Family Medicine [address] [place] [address], [address]. tel:[phone] Office/Outpa tient Visit, [facility], [address] [place] [address], [id number] , tel:[phone] Setzen Facial pain (chief complaint) Headache around the eyesTMJ derangementDeviate d nasal septumReferred otalgia of both ears Aug-0 3-201 8 Renny Capone. [address] [facility], [place], [place], [id number], . tel:[phone] Specialist : Milind Finch MD, [address] [place], [address]. tel:[phone] cialist: Miya Armendariz, [address] [facility] [address], [place], [address]. tel:[phone] cialist: Woodrow Bullock MD, [address] [facility] [address], [place], [address]. tel:[phone] erring Provider: Frank Edmonds MD, Family Medicine [address] [place] [address], [address]. tel:[phone] Family History Family Member Type Diagnosis Age At Onset Father Problem (finding) Heart disease Payers Payer name Insurance type Covered libertarian ID Authoriza tion(s) MEDICARE PART B [id number] Social History Type Description Quantity Date Captured [...] sore throat in the AM. She used [place] yesterday with relief. Stilhaving some difficulty swallowing [...] sore throat in the AM. She used [place] yesterday with relief. 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 Additional information: Was in [facility] ER last week - left arm pain, [...] are variable and intense. She saw an finish patcher who told her that her eyes were [...] have a normal upper endoscopy with her filler picker several months ago. I will request records [...]
--- OUTSIDE RECORDS SUMMARY | 2024-03-27 08:49 | XMS_ITS | Data Portability ---
Author Organization [facility] [id number] Address [address] [place] [address] Assessment No assessment recorded. Plan of Treatment Reminders Order Date Submit Date Provider Last Modified By Organization Details Last Modified Time Details Appointments None recorded. Lab None recorded. Referral orthopedic spine surgeon referral 2022 023 [email or web address] Not available 11:04:13 Procedures None recorded. Surgeries None recorded. Imaging None recorded. Medication Orders cyclobenzap rine 10 mg tablet 2022 023 [id number], [address], [place], [phone], 16:54:46 Medrol (Philip) 4 mg tablets in a dose pack 2022 023 [facility] #[id number], [address], [place], [phone], 10:14:12 Patient TargetsNo targets recorded. Patient Instructions Encounter Date Encounter Id Patient Instructions Last Modified By Organization Details Last Modified Time 04/30/2022 [id number] getting back to normal after low back pain: care instructions [email or web address] Not available 04/30/2022 16:54:37 05/07/2022 [id number] getting back to normal after low back pain: care instructions [email or web address] Not available 05/07/2022 10:14:04 Reason for Referral Orthopedic Spine Surgeon Ref erral for Low back pain Referring Physician: Cristian Trujillo, Urgent Care, Encounter Date: 05/07/2022 Problems Name Problem SNOMED Code Status Onset Date Resolution Date Notes Provider Name and Address Organization Details Recorded Time Depressive disorder 68884480 Active 2022 Christy Rama null, PA - [facility] 3 15:08:17 Migraine 46619417 Active 2022 Christy Rama null, PA - [facility] 3 15:08:22 Anxiety 46773681 Active 2022 Christy Rama null, PA - [facility] 3 15:08:27 Neuralgia 05714261 Active 2022 Christy Rama null, PA - [facility] 3 15:08:45 Hyperlipidemia 88806440 Active 2022 Christy Rama null, PA - [facility] 3 15:08:57 Notes:3 heart stents Problem Notes None recorded. Procedures Surgical History Date Name Laterality Status Provider Name and Address Organization Details Recorded Time insertion of arterial stent completed Christy Dagmar PA - [facility] 04/30/2022 15:10:20 Imaging [...] saturation in Arterial blood by Pulse oximetry Pain severity - 0-10 verbal numeric rating [Score] - Reported Heart rate Respiratory rate Body temperature Systolic blood pressure Diastolic blood pressure Provider Name and Address Organization Details Last Updated DateTime 3 165.1 cm 30 kg/m2 20267.6 3 g 99 % 99 % 10 98 /min 20 /min 98.1 [degF] 116 mm[Hg] 78 mm[Hg] Christy Ontievros [employer] [facility] 3 15:11:40 Date Recorded Body height Body mass index (BMI) Body weight Pain severity - 0-10 verbal numeric rating [Score] - Reported Oxygen saturation Oxygen saturation in Arterial blood by Pulse oximetry Heart rate Respiratory rate Body temperature Systolic blood pressure Diastolic blood pressure Provider Name and Address Organization Details Last Updated DateTime 3 165.1 cm 30 kg/m2 15690.6 3 g 9 100 % 100 % 104 /min 18 /min 98.1 [degF] 127 mm[Hg] 79 mm[Hg] Mollylatasha Salamancaannika [employer] [employer] [facility] 3 09:28:21 Social History Question Answer Notes LastModified by [employer] Details LastModified Time Tobacco Smoking Status Former Smoker Christy gu [employer] [facility] 04/30/2022 15:10:10 What Is Your Level Of Alcohol Consumption? None Information not available 04/30/2022 When Did You Quit Smoking? [facility] Information not available 04/30/2022 Have You Had [...] SNOMED-CT Code Diagnosis ICD10 Code Diagnosis Note [id number] CHIVO DERAS MD _[facility] [address] [address] 04/30/2022 10:46:51 04/30/2022 16:55:38 Spasm of back muscles 247662024 M62.830 MUSCU LOSKELETAL PAIN can be managed [...] please see your doctor or return to [facility] within one week. If your symptoms become severe or uncontroll ed or if you develop new concerning symptoms please go to the Emergency Department for evaluation and pain control. Call your PCP to schedule a follow up appointmen t within the next 2 weeks. [id number] Cristian Trujillo DO _[facility] [address] [place] [address] 05/07/2022 08:21:34 05/07/2022 10:24:41 Low back pain [id number] M54.50 Likely muscular originReco mmend c/w muscle relaxerTop ical analgesicD /w her trial of medrol dose [facility]Rel[facility]is [facility] with patient potential adverse side effects [...] Member ID Guarantor Name 04/30/2022 1 MEDICARE [place]: [facility] [employer] SERVICES Elenita Douglas [id number] Elenita Douglas 05/07/2022 1 [place]ICARE [place]: [facility] Elenita Douglas [id number] 0 Elenita Douglas Notes Date Note Type [...] they stated was fine. She states her sports media told her not to take NSAIDS for pain. She says she gets too hyper when she takes prednisone. CHIVO DERAS MD [address] [place], [address], PA - [facility] 04/30/2022 17:01:44 05/07/2022 [...] have a PCP Cristian Trujillo, DO [address] [place], [address], [place] PA - [facility] 05/07/2022 10:38:57 OBGyn Episode No OBEpisode recorded.
--- OUTSIDE RECORDS SUMMARY | 2024-03-27 08:49 | XMS_ITS | Encounter Summary ---
Author Organization [facility] [place] [address] Care Team Providers Care Kaiawhina Name Role Phone Unavailable Primary Care Provider Unavailabl e Encounter Details Date Type Department Care Team (Late st Contact Info) Description 12/11/2019 Hospital Encounter TH HISTORIC ENCOUNTERS EASTERN CONVERSION ONLY Selma Ace MD [address] [place] [address] Palpitations Social History Tobacco Use Types Packs/Day [...] money to get more. Never true 10/14/2020 [facility] Answer Date Re corded How [...] encounter Results * Myocard Perf Spect Multiple [id number] [facility] (12/11/2019 8:45 PM EDT) Anatomical Region Laterality Modality Other 12/11/2019 9:02 AM EDT Narrative 12/11/2019 8:45 PM EDT [facility] in Cardiology [address] [place], [place] ??[address] Regadenoson Stress Nuclear SPECT Report Name: ??TEJA DOUGLAS ?Exam Date: 12/11/2019 09:02 ?? Ordering Phys: SELMA ACE ?: ? 1970 ? Referring Phys:SELMA ACE Age: 49 ? Gender: F ? Ht (in):65 ??Wt (lb):163 BSA ??1.84 ?Technologist: ??JAM Procedure CPT: ?? 60523 Indications: ? Other chest pain ICD Codes: ? R07.89 Cardiac History: palpitations [facility] Appropriateness Criteria: Cardiac Medications: ?pravastatin, propranolol [...] intravenously at rest. Resting SPECT images were [id number] ? minutes past injection. Post Stress Imagin.9 ??mCi of Tc-99m Sestamibi was injected intravenously at peak pharmacological stress. Post Stress SPECT images were ?minutes past tracer injection. Technical Quality: ?? [...] Procedure Note Historical, Cardiovascular Results, - 07/08/2020 [facility] [address] [place] [address] Regadenoson Stress Nuclear SPECT Report Name: TEJA DOUGLAS Exam Date: 12/11/2019 09:02Ordering Phys: SELMA ACE : 1970Referring Phys:SELMA ACE Age: 49 Gender: F Ht (in):65 Wt (lb):163 BSA 1.84Technologist: FRANKIE Procedure CPT: 85228 Indications: Other chest pain ICD Codes: R07.89 Cardiac History: palpitations [facility] Appropriateness Criteria: Cardiac Medications: pravastatin, propranolol [...] injectedintravenously at rest. Resting SPECT images were [id number] minutes past injection. Post Stress Imagin.9 mCi of Tc-99m Sestamibi was injectedintravenously at peak pharmacological stress. Post Stress SPECT images were oyhtmgim06 minutes past tracerinjection. Technical Quality: Technically adequate [...]
--- OUTSIDE RECORDS SUMMARY | 2024-03-27 08:49 | XMS_ITS | Encounter Summary ---
Author Organization [place] [address] Care Team Providers Care Crt Name Role Phone Frank Edmonds MD Primary Care Provider Encounter Details Date Type Department Care Team (Late st Contact Info) Description 06/15/2020 2:06 PM EDT Hospital Encounter [facility] [address] [place] [id number] Darinel Sanchez MD [address] [place] [address] Social History Tobacco Use Types [...] on filedocumented in this encounter Care Teams Crt Relationship Specialty Start Date End Date Frank Edmonds MD [address] [phone] PCP - General 05/20/20 10/25/21 documented as of this encounter
--- OUTSIDE RECORDS SUMMARY | 2024-03-27 08:49 | XMS_ITS | Clinical Summary ---
Author Organization [facility] Address [address] [place] [address] Phone Care Team Providers Care Rhinestone Setter Name Role Phone Physician, No Pcp Primary Care Provider Unavaila ble Allergies Active Allergy Reactions Criticality Noted Date Comments Cefazolin High 11/02/2020 Other reaction(s): HAND SWELLING Sulfa (Sulfonamide Antibiotics) 10/25/2021 Sulfamethoxazole-Trimethopr im Itching Medium 07/24/2020 Medications esomeprazole (NexIUM) [address] capsule TAKE ONE CAPSULE BY MOUTH TWICE DAILY 180 capsule 02/02/20 21 Active atorvastatin (LIPITOR) 40 mg tabletIndications: Mixed hyperlipidemia TAKE 1 TABLET BY MOUTH EVERY DAY IN THE EVENING 90 tablet 3 04/14/19 22 Active oxyCODONE-acetamin ophen (PERCOCET) 5-325 mg per tablet Take 1 tablet by mouth 3 (three) times a day if needed. Max Daily Amount: 3 tablets 07/01/19 23 Active atorvastatin (LIPITOR) 80 mg tablet Take 1 tablet (80 mg total) by mouth at bedtime. Active dicyclomine (BENTYL) 20 mg tablet 02/01/20 23 Active PARoxetine (PaxiL) 20 mg tabletIndications: Panic disorder with agoraphobia,Mixed obsessional thoughts and acts TAKE 3 tabs (60mg) PO DAILY 90 each 5 05/02/19 24 Active eszopiclone (LUNESTA) 3 mg tablet Take 1 tablet (3 mg total) by mouth at bedtime. Take immediately before bedtime Max Daily Amount: 3 mg 30 each 1 05/30/19 24 Active Active Problems Problem Noted Date Diagnosed [...] coronary intervention Coronary artery disease invo lving [place] heart without angina pectoris 11/19/2020 Assessment & [...] (10/12/2020): Added automatically from request for surgery [id number] Assessment & Plan (10/12/2020 3:40 PM EDT): [...] your next appointment. Limit the use of xmvb-gqf-ujfufri and prescription pain medications to 2 - [...] preservative (Fluzone; Afluria) 6mo and older 01/18/2016 [employer] SARS-CoV-2 COVID -19, vector-nr, rS-Ad26, preservative free [...] TONSILLECTOMY ADENOIDECTOMY, BILATERAL MYRINGOTOMY AND TUBES PROCEDURE: [place] TONSILLECTOMY & ADENOIDECTOMY <AGE 12 OTHER SURGICAL HISTORY PROCEDURE: [place] ARTHRS KNEE W/MENISCECTOMY MED&LAT W/SHAVING; COMMENT: left side OTHER SURGICAL HISTORY PROCEDURE: [place] DILATION & CURETTAGE DX&/THER NONOBSTETRIC; COMMENT: 3 [...] money to get more. Never true 10/14/2020 [facility] Answer Date Re corded How [...] Completed 10/26/2021 Hepatitis C Screening Completed 10/26/2021, 09/13/2 022 HIB Vaccines Aged Out No longer [...] this topic Medical Devices Implanted Type Area Courier Driver Device Identifier Shelf Expiration Date Model / [...] mmol/L LAB CHEMISTRY METHOD 02/02/2022 8:[address] [facility] Potassium 3.1(L) 3.5 - 5.1 mmol/L LAB CHEMISTRY METHOD 02/02/2022 8:[address] [facility] Chloride 114(H) 98 - 107 mmol/L LAB CHEMISTRY METHOD 02/02/2022 8:[address] [facility] CO2 21 21 - 32 mmol/L LAB CHEMISTRY METHOD 02/02/2022 8:[address] [facility] Anion Gap 8 3 - 11 LAB CHEMISTRY METHOD 02/02/2022 8:[address] [facility] Glucose 104(H) 70 - 99 mg/dL LAB CHEMISTRY METHOD 02/02/2022 8:[address] [facility] BUN 10 7 - 18 mg/dL LAB CHEMISTRY METHOD 02/02/2022 8:[address] [facility] Creatinine 0.80 0.55 - 1.02 mg/dL LAB CHEMISTRY METHOD 02/02/2022 8:[address] [facility] eGFR 90 >=60 mL/min/1. 73m2 LAB CHEMISTRY METHOD 02/02/2022 8:[address] [facility] Comment: The MDRD GFR formula is valid only for adults between ages 18 and 70. Effective November 21, 2021, calculation based on the??Chronic Kidney Disease Epidemiology Collaboration (CKD-EPI) equation refit??without adjustment for race. BUN/Creatinine Ratio 12.5 12.0 - 20.0 LAB CHEMISTRY METHOD 02/02/2022 8:[address] [facility] Calcium 9.0 8.5 - 10.1 mg/dL LAB CHEMISTRY METHOD 02/02/2022 8:[address] [facility] AST (SGOT) 12(L) 15 - 37 unit/L LAB CHEMISTRY METHOD 02/02/2022 8:[address] [facility] ALT (SGPT) 17 13 - 56 unit/L LAB CHEMISTRY METHOD 02/02/2022 8:[address] [facility] Alkaline Phosphatase 72 42 - 98 unit/L LAB CHEMISTRY METHOD 02/02/2022 8:[address] [facility] Total Protein 7.0 6.4 - 8.2 g/dL LAB CHEMISTRY METHOD 02/02/2022 8:[address] [facility] Albumin 3.8 3.4 - 5.0 g/dL LAB CHEMISTRY METHOD 02/02/2022 8:51 AM EST [facility] Total Bilirubin 0.6 0.2 - 1.0 mg/dL LAB CHEMISTRY METHOD 02/02/2022 8:51 AM EST [facility] Blood Venous blood specimen / Unknown Venipuncture / Unknown 02/02/2022 7:58 AM EST 02/02/2022 8:04 AM EST us Adonis Zafar DO LAB BLOOD ORDERABLES Final Res ult [facility] [address] [place] [address] * HIV 1, HIV 2 antibody screen, P24 antigen with reflex to differentiation (10/26/2021 2:27 PM EDT) Pathologist [facility] HIV Combo AB/AG Negative/ Nonreacti ve Negative/ Nonreacti ve LAB CHEMISTRY METHOD 10/27/2021 5:14 PM EDT [facility] Blood Venous blood specimen / Unknown Venipuncture / Unknown 10/26/2021 2:27 PM EDT 10/26/2021 2:27 PM EDT Narrative [facility] - 10/27/2021 5:14 PM EDT 1. [...] 5. Only REACTIVE results are reported to [facility]. 6. REACTIVE results will be sent to our Reference Laboratory for HIV-1 AB, HIV-2 AB differentiation, and HIV-1 RNA detection by Cement Mason-Mediated Amplification (TMA) and if positive, quantitation by Real-Time PCR. Gale Howard NP LAB BLOOD ORDERABLES Final Res ult Performing Organization Address City/[facility]/ZIP Co de Phone Number [facility] [address] [place] [address] * Hepatitis panel, acute (10/26/2021 2:27 PM [...] AM EDT Performed at: ??01 - [facility] [address] ??[id number] Warehouse And Receiving Supervisor: Yahir Moss MD, Phone: ??[phone] Gale Howard NP LAB BLOOD ORDERABLES Final Res ult [facility] * (ABNORMAL) Lipid panel (10/26/2021 2:27 PM EDT) Pathologist [facility] Cholesterol 153 <200 mg/dL LAB CHEMISTRY METHOD 10/26/2021 4:57 PM EDT [facility] Triglycerides 157(H) <150 mg/dL LAB CHEMISTRY METHOD 10/26/2021 4:57 PM EDT [facility] HDL 49(L) >59 mg/dL LAB CHEMISTRY METHOD 10/26/2021 4:57 PM EDT [facility] Comment: <35 mg/dl is the cut-point for increased Coronary Heart Disease (CHD) risk. LDL Calculated 73 0 - 99 mg/dL LAB CHEMISTRY METHOD 10/26/2021 4:57 PM EDT [facility] VLDL Cholesterol Francisco 31.4(H) <=30 mg/dL LAB CHEMISTRY METHOD 10/26/2021 4:57 PM EDT [facility] Blood Venous blood specimen / Unknown Venipuncture / Unknown 10/26/2021 2:27 PM EDT 10/26/2021 2:27 PM EDT Gale Howard NP LAB BLOOD ORDERABLES Final Res ult [facility] [address] [place] [address] * Cervical Cancer Screening: HPV (12/02/2019) Cervical Cancer Screening: HPV abstracted Historical Provider HEALTH MAINTENANCE Final Result from Last 3 Months or Most Recently Relevant to Health Maintenance Insurance MEDICARE Advance Directives * Full Code - Default [...] currently active code status orders. Care Teams Rhinestone Setter Relationship Specialty Start Date End Date Physician, No Pcp PCP - General 02/02/22
== END 2024-03-27 09:15 | disposition home or self-care (01) ==
PROVIDERS: PCP Internal Medicine; Visit Provider Internal Medicine
DX: G44.89 Other headache syndrome (principal); F11.20 Opioid dependence, uncomplicated; F33.41 Major depressive disorder, recurrent, in partial remission; G25.0 Essential tremor; E87.8 Other disorders of electrolyte and fluid balance, not elsewhere classified; G58.8 Other specified mononeuropathies; F41.1 Generalized anxiety disorder; R73.01 Impaired fasting glucose; N39.46 Mixed incontinence; F17.210 Nicotine dependence, cigarettes, uncomplicated

== ENCOUNTER → 2024-03-27 08:17 | Outpatient (BNVA) | payer MEDICARE, MEDICAID, SELFPAY | PROVIDERS: PCP Internal Medicine; Visit Provider Internal Medicine | DX: G44.89 Other headache syndrome (principal); G25.0 Essential tremor; E87.8 Other disorders of electrolyte and fluid balance, not elsewhere classified; G58.8 Other specified mononeuropathies; F11.20 Opioid dependence, uncomplicated; F41.1 Generalized anxiety disorder; F33.41 Major depressive disorder, recurrent, in partial remission; R73.01 Impaired fasting glucose; N39.46 Mixed incontinence; F17.210 Nicotine dependence, cigarettes, uncomplicated; Z71.6 Tobacco abuse counseling | CPT/HCPCS: 99212 ==

== ENCOUNTER 2024-04-16 11:31 | Outpatient (REF) | payer MEDICARE, MEDICAID, SELFPAY ==
[2024-04-16 13:35] LABS: Anion Gap 13 (12-20); Carbon Dioxide 27 mmol/L (22-29); Chloride 108 mmol/L (96-108); Potassium 3.7 mmol/L (3.3-5.1); Sodium 144 mmol/L (135-145)
--- OUTSIDE RECORDS SUMMARY | 2024-04-16 14:41 | XMS_ITS | Clinical Summary ---
Author Organization [facility] Address [address] [place] [address] Phone Care Team Providers Care Data Analytics Chief Scientist Name Role Phone Physician, No Pcp Primary [...] coronary intervention Coronary artery disease invo lving [place] heart without angina pectoris 11/19/2020 Assessment & [...] (10/12/2020): Added automatically from request for surgery [id number] Assessment & Plan (10/12/2020 3:40 PM EDT): [...] your next appointment. Limit the use of psva-yxx-ilrxgbh and prescription pain medications to 2 - [...] preservative (Fluzone; Afluria) 6mo and older 01/18/2016 [employer]arter[employer] SARS-CoV-2 COVID -19, vector-nr, rS-Ad26, preservative free [...] TONSILLECTOMY ADENOIDECTOMY, BILATERAL MYRINGOTOMY AND TUBES PROCEDURE: [place] TONSILLECTOMY & ADENOIDECTOMY <AGE 12 OTHER SURGICAL HISTORY PROCEDURE: [place] ARTHRS KNEE W/MENISCECTOMY MED&LAT W/SHAVING; COMMENT: left side OTHER SURGICAL HISTORY PROCEDURE: [place] DILATION & CURETTAGE DX&/THER NONOBSTETRIC; COMMENT: 3 [...] Last Done Comments Breast Cancer Screening 1972 DTaP,Tdap,and Td Vaccines (1 - Tdap) 1991 Hepatitis B Vaccines (1 of 3 - 19+ 3-dose series) 1991 Pneumococcal Vaccine: 50+ Years (1 of 2 - PCV) 1991 Pneumococcal Vaccine: Pediatrics (0 to 5 Years) and At-Risk Patients (6 to 64 Years) (1 of 2 - PCV) 1991 Zoster Vaccines (1 of 2) 1991 [...] patient's age to complete this topic Meningococcal B Vacine Aged Out No lo nger eligible based on patient's age to complete this topic RSV Immunization Patients Under 20 months Aged Out No longer eligible based on patient's age to complete this topic Varicella Vaccines Aged Out No longer eligible based on patient's age to complete this topic Medical Devices Implanted Type Area Decontamination Worker Device Identifier Shelf Expiration Date Model / [...] mmol/L LAB CHEMISTRY METHOD 02/02/2022 8:51 AM EST [facility] Potassium 3.1(L) 3.5 - 5.1 mmol/L LAB CHEMISTRY METHOD 02/02/2022 8:51 AM EST [facility] Chloride 114(H) 98 - 107 mmol/L LAB CHEMISTRY METHOD 02/02/2022 8:51 AM [facility] CO2 21 21 - 32 mmol/L LAB CHEMISTRY METHOD 02/02/2022 8:51 AM [facility] Anion Gap 8 3 - 11 LAB CHEMISTRY METHOD 02/02/2022 8:51 AM [facility] Glucose 104(H) 70 - 99 mg/dL LAB CHEMISTRY METHOD 02/02/2022 8:51 AM [facility] BUN 10 7 - 18 mg/dL LAB CHEMISTRY METHOD 02/02/2022 8:51 AM [facility] Creatinine 0.80 0.55 - 1.02 mg/dL LAB CHEMISTRY METHOD 02/02/2022 8:51 AM [facility] eGFR 90 >=60 mL/min/1. 73m2 LAB CHEMISTRY METHOD 02/02/2022 8:51 AM [facility] Comment: The MDRD GFR formula is valid only for adults between ages 18 and 70. Effective November 21, 2021, calculation based on the??Chronic Kidney Disease Epidemiology Collaboration (CKD-EPI) equation refit??without adjustment for race. BUN/Creatinine Ratio 12.5 12.0 - 20.0 LAB CHEMISTRY METHOD 02/02/2022 8:51 AM [facility] Calcium 9.0 8.5 - 10.1 mg/dL LAB CHEMISTRY METHOD 02/02/2022 8:51 AM [facility] AST (SGOT) 12(L) 15 - 37 unit/L LAB CHEMISTRY METHOD 02/02/2022 8:51 AM [facility] ALT (SGPT) 17 13 - 56 unit/L LAB CHEMISTRY METHOD 02/02/2022 8:51 AM [facility] Alkaline Phosphatase 72 42 - 98 unit/L LAB CHEMISTRY METHOD 02/02/2022 8:51 AM [facility] Total Protein 7.0 6.4 - 8.2 g/dL LAB CHEMISTRY METHOD 02/02/2022 8:51 AM EST [facility] Albumin 3.8 3.4 - 5.0 g/dL LAB CHEMISTRY METHOD 02/02/2022 8:51 AM [facility] Total Bilirubin 0.6 0.2 - 1.0 mg/dL LAB CHEMISTRY METHOD 02/02/2022 8:51 AM [facility] Blood Venous blood specimen / Unknown Venipuncture / Unknown 02/02/2022 7:58 AM EST 02/02/2022 8:04 AM EST us Adonis Zafar DO LAB BLOOD ORDERABLES Final Res ult [facility] [address] [place] [address] * HIV 1, HIV 2 antibody screen, P24 antigen with reflex to differentiation (10/26/2021 2:27 PM EDT) HIV Combo AB/AG Negative/ Nonreacti ve Negative/ Nonreacti ve LAB CHEMISTRY METHOD 10/27/2021 5:14 PM EDT [facility] Blood Venous blood specimen / Unknown Venipuncture / Unknown 10/26/2021 2:27 PM EDT 10/26/2021 2:27 PM EDT Narrative [facility] - 10/27/2021 5:14 PM EDT [...] 5. Only REACTIVE results are reported to [facility]. 6. REACTIVE results will be sent to our Reference Laboratory for HIV-1 AB, HIV-2 AB differentiation, and HIV-1 RNA detection by Child Care Lead Teacher-Mediated Amplification (TMA) and if positive, quantitation by Real-Time PCR. us Gale Howard NP LAB BLOOD ORDERABLES Final Res ult [facility] [address] [place] [address] * Hepatitis panel, acute (10/26/2021 2:27 PM [...] AM EDT Performed at: ??01 - [facility] [address] ??[id number] Cone Picker: Yahir Moss MD, Phone: ??[phone] us Gale Howard NP LAB BLOOD ORDERABLES Final Res ult [facility] * (ABNORMAL) Lipid panel (10/26/2021 2:27 PM EDT) Cholesterol 153 <200 mg/dL LAB CHEMISTRY METHOD 10/26/2021 4:57 PM EDT [facility] Triglycerides 157(H) <150 mg/dL LAB CHEMISTRY METHOD 10/26/2021 4:57 PM EDT [facility] HDL 49(L) >59 mg/dL LAB CHEMISTRY METHOD 10/26/2021 4:57 PM EDT [facility] Comment: <35 mg/dl is the cut-point for increased Coronary Heart Disease (CHD) risk. LDL Calculated 73 0 - 99 mg/dL LAB CHEMISTRY METHOD 10/26/2021 4:57 PM EDT [facility] VLDL Cholesterol Francisco 31.4(H) <=30 mg/dL LAB CHEMISTRY METHOD 10/26/2021 4:57 PM EDT [facility] Blood Venous blood specimen / Unknown Venipuncture / Unknown 10/26/2021 2:27 PM EDT 10/26/2021 2:27 PM EDT Gale Howard RESEARCH AND DEVELOPMENT TECHNICIAN LAB BLOOD ORDERABLES Final Res ult [facility] [address] [place] [address] * Cervical Cancer Screening: HPV (12/02/2019) Pathologist [facility] Cervical Cancer Screening: HPV abstracted Historical Provider [...] currently active code status orders. Care Teams Data Analytics Chief Scientist Relationship Specialty Start Date End Date Physician, No Pcp PCP - General 02/02/22
--- OUTSIDE RECORDS SUMMARY | 2024-04-16 14:41 | XMS_ITS | Encounter Summary ---
Author Organization [place] [address] Care Team Providers Care Edge Burnisher Name Role Phone Unavailable Primary Care Provider Unavailabl e Encounter Details Date Type Department Care Team (Late st Contact Info) Description 12/11/2019 Hospital Encounter TH HISTORIC ENCOUNTERS EASTERN CONVERSION ONLY Selma Ace MD [address] [place] [address] Palpitations Social History Tobacco Use Types Packs/Day [...] encounter Results * Myocard Perf Spect Multiple [id number] [facility] (12/11/2019 8:45 PM EDT) Anatomical Region Laterality Modality Other 12/11/2019 9:02 AM EDT Narrative 12/11/2019 8:45 PM EDT [facility] in Cardiology [address] [place], [place] ??[address] Regadenoson Stress Nuclear SPECT Report Name: ??TEJA DOUGLAS ?Exam Date: 12/11/2019 09:02 ?? Ordering Phys: ESLMA ACE ?: ? 1970 ? Referring Phys:SELMA ACE Age: 49 ? Gender: F ? Ht (in):65 ??Wt (lb):163 BSA ??1.84 ?Technologist: ??JAM Procedure CPT: ?? 59339 Indications: ? Other chest pain ICD Codes: ? R07.89 Cardiac History: palpitations [facility] Appropriateness Criteria: Cardiac Medications: ?pravastatin, propranolol er [...] intravenously at rest. Resting SPECT images were rizbwobm27 ? minutes past injection. Post Stress Imagin.9 ??mCi of Tc-99m Sestamibi was injected intravenously at peak pharmacological stress. Post Stress SPECT images were zszsueue42 ?minutes past tracer injection. Technical Quality: ?? [...] Procedure Note Historical, Cardiovascular Results, - 07/08/2020 [facility] in Cardiology [address] [place] [address] Regadenoson Stress Nuclear SPECT Report Name: TEJA DOUGLAS Exam Date: 12/11/2019 09:02Ordering Phys: SELMA ACE : 1970Referring Phys:SELMA ACE Age: 49 Gender: F Ht (in):65 Wt (lb):163 BSA 1.84Technologist: FRANKIE Procedure CPT: 21223 Indications: Other chest pain ICD Codes: R07.89 Cardiac History: palpitations [facility] Appropriateness Criteria: Cardiac Medications: pravastatin, [...] injectedintravenously at rest. Resting SPECT images were cjyetbvy54 minutes past injection. Post Stress Imagin.9 mCi of Tc-99m Sestamibi was injectedintravenously at peak pharmacological stress. Post Stress SPECT images were ghwpljer19 minutes past tracerinjection. Technical Quality: Technically adequate [...]
--- OUTSIDE RECORDS SUMMARY | 2024-04-16 14:41 | XMS_ITS | Encounter Summary ---
Author Organization [employer] [address] Care Team Providers Care Marine Firefighter Name Role Phone Unavailable Primary Care Provider Unavailabl e Encounter Details Date Type Department Care Team (Late st Contact Info) Description 11/25/2019 Hospital Encounter TH HISTORIC ENCOUNTERS EASTERN CONVERSION ONLY Selma Ace MD [address] [place] [address] Other chest pain Social History Tobacco Use [...] this encounter Results * TTE W/Doppler Complete [address] [facility] (11/26/2019 10:09 AM EDT) Anatomical Region Laterality Modality Other 11/25/2019 8:17 AM EDT Narrative 11/26/2019 10:09 AM EDT [facility] [address] [place], [place] ??[address] Transthoracic Echocardiogram Report Name: ?? WEIR, TEJA ?Exam Date: ?? 11/25/2019 08:17 ?? Ordering Physician:SELMA ACE Age: ?49 ? Gender: ??F ? Ht (in):65 ?Wt (lb): 168 ?Referring Physician:SHIRLEY WOLF ?BSA: ?? 1.87 ? Consumer Safety Inspector: ? DAM : ?1970 ?BP (mmHg): ??108 ?/ 70 Exam Location: [facility] Type of Exam: Adult CPT's: ?76223 Clinical Indications:OTHER CHEST PAIN / LIGHTHEADED / [...] Procedure Note Historical, Cardiovascular Results, - 07/08/2020 [facility] in Cardiology [address] [place] [address] Transthoracic Echocardiogram Report Name: TEJA DOUGLAS Exam Date: 11/25/2019 08:17Ordering Physician:SELMA ACE Age: 49 Gender: F Ht (in):65 Wt (lb): 168Referring Physician:SHIRLEY WOLF BSA: 1.87Sonographer: TREVOR : 1970 BP (mmHg): 108 / 70 Exam Location: [facility] Type of Exam: Adult CPT's: 62674 Clinical Indications:OTHER CHEST PAIN / LIGHTHEADED / [...] E to A Ratio 1.85 TR Peak Evjhntpu479.00 cm/ MV Deceleration Time 153.54 ms TR Peak Vtcrueqr49.28 mmHg Cullen Nelson MD, [facility] (Electronically Signed) Final Date: 26 November 2019 10:08 us Cardiovascular Results Historical CV HISTORIC AL CONV PROCEDURES Final Result * Stress Test Cardiac Tracing [address] [facility] (11/25/2019 7:37 PM EDT) Anatomical Region Laterality Modality Other 11/25/2019 9:09 AM EDT Narrative 11/25/2019 7:37 PM EDT [facility] in Cardiology [address] [place], [place] ??[address] Stress Test Report Name: ??CARLOS TEJA ? Exam Date: 11/25/2019 09:09 ?Ordering Phys: SELMA ACE ?Exam Location: [facility] ? Referring Phys:SHIRLEY WOLF Age: 49 ? Gender: F ? Ht (in):65 ??Wt (lb):163 BSA ??1.84 ?Technologist: ??debo, rn : ?1970 Procedure CPT: ?? 52531 Indications: ? Other chest pain, Palpitations, Other [...] ??/86 ?% MPHR: ?? 77 ? Double Product:84733 BP Response: ? Normal blood pressure response [...] Note Historical, Cardiovascular Results, MD - 07/08/2020 [facility] [place] [address] Stress Test Report Name: TEJA DOUGLAS Exam Date: 11/25/2019 09:09Ordering Phys: SELMA ACE Exam Location: [facility] OfficeReferring Phys:SHIRLEY LUCIANO Age: 49 Gender: F Ht (in):65 Wt (lb):163 BSA 1.84Technologist: anny edmondson : 1970 Procedure CPT: 16124 Indications: Other chest pain, Palpitations, Other forms of dyspnea,Bradycardia, unspecified ICD-9 Codes: R07.89 R00.2 R06.09 R00.1 Patient History: chest pain, dyspnea, palpitations Medications: propanolol, pravastatin STRESS TEST Ovi Protocol Exercise Duration(min:sec):6:00 METS: 7.0 mets Resting HR (bpm):79 Resting BP (mmHg): 132 /78 MPHR: 147Target HR: 7499 Peak HR (bpm): 134 Peak BP (mmHg): 152 /86 % MPHR: 77Double Product:67142 BP Response: Normal blood pressure response during [...]
--- OUTSIDE RECORDS SUMMARY | 2024-04-16 14:41 | XMS_ITS | Encounter Summary ---
Author Organization [place] [address] Care Team Providers Care Sales And Marketing Manager Name Role Phone Frank Edmonds MD Primary Care Provider Encounter Details Date Type Department Care Team (Late st Contact Info) Description 06/11/2020 10:20 AM EDT Hospital Encounter [facility] [address] [facility] 2nd [place] [phone] Thaddeus De Anda MD [address] [place] [address] Social History Tobacco Use Types Packs/Day Years [...] on filedocumented in this encounter Care Teams Sales And Marketing Manager Relationship Specialty Start Date End Date Frank Edmonds MD [address] [address] PCP - General 05/20/20 10/25/21 documented as of this encounter
--- OUTSIDE RECORDS SUMMARY | 2024-04-16 14:41 | XMS_ITS | Data Portability ---
Author Organization [facility] [address] Address [address] [place] [address] Assessment No assessment recorded. Plan of Treatment Reminders Order Date Submit Date Provider Last Modified By Organization Details Last Modified Time Details Appointments None recorded. Lab None recorded. Referral orthopedic spine surgeon referral 2022 023 [email or web address] Not available 11:04:13 Procedures None recorded. Surgeries None recorded. Imaging None recorded. Medication Orders Medrol (Philip) 4 mg tablets in a dose pack 2022 023 [id number], [address] [place], [place], [id number], 10:14:12 cyclobenzap rine 10 mg tablet 2022 023 [id number], [address] [place], [place], [id number], 16:54:46 Patient TargetsNo targets recorded. Patient Instructions Encounter Date Encounter Id Patient Instructions Last Modified By Organization Details Last Modified Time 04/30/2022 [id number] getting back to normal after low back pain: care instructions [email or web address] Not available 04/30/2022 16:54:37 05/07/2022 [id number] getting back to normal after low back pain: care instructions [email or web address] Not available 05/07/2022 10:14:04 Reason for Referral Orthopedic Spine Surgeon Ref erral for Low back pain Referring Physician: Cristian Trujillo, Urgent Care, Encounter Date: 05/07/2022 Problems Name Problem SNOMED Code Status Onset Date Resolution Date Notes Provider Name and Address Organization Details Recorded Time Depressive disorder 95598452 Active 2022 Christy [place] null, [place] - [facility] 3 15:08:17 Migraine 70722231 Active 2022 Christy Rama null, [place] - [facility] 3 15:08:22 Anxiety 38834682 Active 2022 Christy Rama null, [place] - [facility] 3 15:08:27 Neuralgia 18788899 Active 2022 Christy [place], [place] - [facility] 3 15:08:45 Hyperlipidemia 84553330 Active 2022 Christy [place] null, [place] - [facility] 3 15:08:57 [...] Updated DateTime 3 165.1 cm 30 kg/m2 19816.6 3 g 99 % 99 % 10 98 /min 20 /min 98.1 [degF] 116 mm[Hg] 78 mm[Hg] Christy Ontiveros [facility] 3 15:11:40 Date Recorded Body height Body mass index (BMI) Body weight Pain severity - 0-10 verbal numeric rating [Score] - Reported Oxygen saturation Oxygen saturation in Arterial blood by Pulse oximetry Heart rate Respiratory rate Body temperature Systolic blood pressure Diastolic blood pressure Provider Name and Address Organization Details Last Updated DateTime 3 165.1 cm 30 kg/m2 93995.6 3 g 9 100 % 100 % 104 /min 18 /min 98.1 [degF] 127 mm[Hg] 79 mm[Hg] Mollylatasha [place] [facility] 3 09:28:21 Social History Question Answer Notes LastModified by Top Hatizat ion Details LastModified Time Tobacco Smoking Status Former Smoker Christy gu [facility] 04/30/2022 15:10:10 What Is Your Level Of Alcohol Consumption? None Information not available 04/30/2022 When Did You Quit Smoking? 1-5yearssin [facility] Information not available 04/30/2022 Have You Had [...] SNOMED-CT Code Diagnosis ICD10 Code Diagnosis Note [id number] CHIVO DERAS MD _Chi [address] [address] 04/30/2022 10:46:51 04/30/2022 16:55:38 Spasm of back muscles 792954250 M62.830 MUSCU LOSKELETAL PAIN can be managed [...] appointmen t within the next 2 weeks. [id number] Cristian Trujillo DO _[facility] [address] [place] [address] 05/07/2022 08:21:34 05/07/2022 10:24:41 Low back pain 967777085 M54.50 Likely muscular originReco mmend c/w muscle relaxerTop ical analgesicD /w [facility] potential adverse side effects [...] Member ID Guarantor Name 04/30/2022 1 MEDICARE B-HI: [facility] [employer] Elenita Douglas [id number] Elenita Douglas 05/07/2022 1 MEDICARE B-HI: [facility] Elenita Douglas [id number] 0 Elenita Douglas Notes Date Note Type [...] they stated was fine. She states her elementary secretary told her not to take NSAIDS for pain. She says she gets too hyper when she takes prednisone. CHIVO DERAS MD [address] [place], [address], [place] - [facility] 04/30/2022 17:01:44 05/07/2022 [...] Trujillo, DO [address] [place], [address], [place] - [facility] 05/07/2022 10:38:57 OBGyn Episode No OBEpisode recorded.
--- OUTSIDE RECORDS SUMMARY | 2024-04-16 14:41 | XMS_ITS | Encounter Summary ---
Author Organization [place] [address] Care Team Providers Care Fish Hatchery Supervisor Name Role Phone Frank Edmonds MD Primary Care Provider Encounter Details Date Type Department Care Team (Late st Contact Info) Description 06/15/2020 2:06 PM EDT Hospital Encounter [facility] [address] [place] [phone] Darinel Sanchez MD [address] [place] [address] Social History Tobacco Use Types [...] on filedocumented in this encounter Care Teams Fish Hatchery Supervisor Relationship Specialty Start Date End Date Frank Edmonds MD [address] [phone] PCP - General 05/20/20 10/25/21 documented as of this encounter
--- OUTSIDE RECORDS SUMMARY | 2024-04-16 14:41 | XMS_ITS | Encounter Summary ---
Author Organization [place] [address] Care Team Providers Care Biometric Technician Name Role Phone Unavailable Primary Care Provider Unavailabl e Encounter Details Date Type Department Care Team (Latest Contact Info) Description 01/23/2020 Hospital Encounter TH HISTORIC ENCOUNTERS EASTERN CONVERSION ONLY Ruiz Simon PA [address] [place] [address] Other diseases of larynx Social History Tobacco [...] Associated Diagnosis Comments CT NECK W/CONT OP (20094) Routine 01/23/2020 8:49 AM EST documented in this encounter Results * CT NECK W/CONT OP (15250) (01/23/2020 8:49 AM EST) Anatomical Region Laterality Modality Computed Tomogra phy 01/23/2020 8:26 AM EST Narrative 01/23/2020 8:49 AM EST EXAMINATION: [phone] - CT NECK W/CONTRAST WORKING DIAGNOSIS: ?? [...] Note Lavon Bartlett MD - 04/16/2020 EXAMINATION: [phone] - CT NECK W/CONTRAST WORKING DIAGNOSIS: chest [...] Visual inspection is recommended. Approved Electronically by: SAARY BARTLETT MD PhD on Jan 23 2020 8:47A Ruiz AL IMG CT PROCEDURES Final Result documented in this encounter Visit Diagnoses Diagnosis Other diseases of larynx documented in this encounter
== END 2024-04-16 11:32 | disposition home or self-care (01) ==
LOC: HO.HMGCLDS 11:31
PROVIDERS: PCP Internal Medicine; Visit Provider Internal Medicine Hypertension Specialist
DX: I10 Essential (primary) hypertension (principal); E87.6 Hypokalemia
CPT/HCPCS: 36415; 80051

== ENCOUNTER 2024-04-18 11:48 | Outpatient (AMB) | payer MEDICARE, MEDICAID, SELFPAY ==
--- NOTE | 2024-04-18 11:41 | HO.NEPHOV_ITS ---
Vital Signs 04/18/24 11:42 Height 5 ft 5 in Intake Visit Reasons: 4wks follow-up w/labs/ Conf Transportation Dispatcher Required: No Accompanied by: Self / Same As Patient Allergies cefazolin [From Anc] Allergy (Mild, Verified 04/18/24 11:42) Swelling Medication List - Last Reconciled 04/18/24 by Demar Tejeda MD atorvastatin 80 mg PO QPM clopidogrel 75 mg PO DAILY cyclobenzaprine 5 mg PO Q8H PRN magnesium oxide 400 mg PO DAILY omeprazole 20 mg PO DAILY ondansetron HCl 4 mg PO ONCE PRN 90 days oxycodone 5 mg PO Q8H PRN 30 days paroxetine HCl 20 mg PO DAILY potassium chloride ER 20 mEq PO BID PRN solifenacin 10 mg PO DAILY HPI Comments Details: 53-year-old woman referred for hypokalemia. She had history of coronary disease status post stent placement at the age of 49. She has no history of hypertension. She is not on any antihypertensive medications. She is not on any diuretics. On February 06 she was in the emergency room with hypokalemia. At that time she had significant nausea and vomiting along with diarrhea. She was given potassium supplementations and sent home. She also had mild alkalosis at the time. Upon reviewing the labs it appears that she has had hypokalemia since October of 2023. She does not take any ivce-mkz-colicly medications. Does not use any licorice. No history of any use of marijuana. 03/14/2024. Overall she is feeling well. No further vomiting or diarrhea. 04/18/2024. 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) Surgical History Hx of dilation and curettage Hx of knee surgery Hx of tonsillectomy Family History Father Heart attack Hypertension Mother Hypertension Social History Household Members Other:: mom Housing: Condominium Alcohol intake: never Patient Tobacco Use Status: Current everyday Tobacco user Tobacco use type: Cigarette Years Smoked: 32 years e-Cigarette/Vaping Use: Never Used Second Hand Smoke Exposure: No service: No Current occupational status: disabled Current occupational exposures/hazards: No Sexual orientation: Straight/Heterosexual Gender identity: Female Cognitive needs: No Hearing needs: No Vision needs: Yes Telehealth Telehealth Telehealth Platform: Telephone Location of provider rendering services: practice address Location of patient: address on file Patient Identification confirmed using: Name, : Yes Telehealth method: voice only Patient verbally consented to treatment: Yes Results Reviewed Nephrology Results: Sodium 144 mmol/L (135-145) 04/16/24 Potassium 3.7 mmol/L (3.3-5.1) 04/16/24 Chloride 108 mmol/L (96-108) 04/16/24 Carbon Dioxide 27 mmol/L (22-29) 04/16/24 BUN 9 mg/dL (9-16) 03/01/24 Creatinine 0.64 mg/dL (0.5-1.4) 03/01/24 Calcium 9.5 mg/dL (8.4-10.2) 03/01/24 Urine Protein Negative mg/dL (Neg-Trace) 03/01/24 Urine Creatinine 23.28 mg/dL 03/01/24 Assessment & Plan Assessment & Plan (1) Hypokalemia: Code(s): E87.6 - Hypokalemia Category: Medical (2) Urine incontinence: Comment: Chronic. With microscopic hematuria. Being followed by Urology Code(s): R32 - Unspecified urinary incontinence Category: Medical Qualifiers: Urinary Incontinence type: mixed stress and urge incontinence Qualified Code(s): N39.46 - Mixed incontinence Plan 54-year-old woman with hypokalemia Normotension. Hypokalemia has been documented for the last 3 months. Some episodes were associated with alkalosis. Two years ago she had mild hyperchloremic metabolic acidosis. At the time she did not have hypokalemia. Differential diagnosis would include potassium losses from GI source including nausea and vomiting. Vomiting could have resulted in proton loss leading to metabolic alkalosis. Diuretic abuse should be considered. Recent urine anion gap was positive. However she did not have any diarrhea at this time. Recommendations Keep potassium supplementation at 10 mEq use per day Monitor serum potassium in 3 weeks If she develops hypokalemia after discontinuing potassium supplementation without any diuretics she needs further workup. Although serum aldosterone and plasma renin renin activities were normal this need to be repeated if she develops hypokalemia again. Encouraged her to continue with adequate fluid intake. She should avoid using any diuretics or zowu-oew-cytgswn medications. Orders: Orders Basic Metabolic Panel 3 Weeks E87.6 - Hypokalemia Basic Metabolic Panel 6 Weeks E87.6 - Hypokalemia Medications: Changed From potassium chloride ER 20 mEq PO BID PRN low potassium To potassium chloride ER 10 mEq PO DAILY Coding Level of Care Code Est Pt Level 3 (71427) Diagnoses Hypokalemia E87.6 Mixed stress and urge urinary incontinence N39.46 Urinary Incontinence type: mixed stress and urge incontinence Time Spent (min) 16
--- OUTSIDE RECORDS SUMMARY | 2024-04-18 14:26 | XMS_ITS | Encounter Summary ---
Author Organization [place] [address] Care Team Providers Care Pizza Delivery Driver Name Role Phone Frank Edmonds MD Primary Care Provider Encounter Details Date Type Department Care Team (Late st Contact Info) Description 06/11/2020 10:20 AM EDT Hospital Encounter [facility] [address] [facility] 2nd [place] [phone] Thaddeus De Anda MD [address] [place] [address] Social History Tobacco Use Types Packs/Day Years [...] money to get more. Never true 10/14/2020 [facility] Answer Date Re corded How [...] on filedocumented in this encounter Care Teams Pizza Delivery Driver Relationship Specialty Start Date End Date Frank Edmonds MD [address] [address] PCP - General 05/20/20 10/25/21 documented as of this encounter
--- OUTSIDE RECORDS SUMMARY | 2024-04-18 14:26 | XMS_ITS | Encounter Summary ---
Author Organization [place] [address] Care Team Providers Care On Site Construction Superintendent Name Role Phone Frank Edmonds MD Primary Care Provider Encounter Details Date Type Department Care Team (Late st Contact Info) Description 06/15/2020 2:06 PM EDT Hospital Encounter [facility] [address] [place] [phone] Darinel Sanchez MD [address] [place] [address] Social History Tobacco Use Types [...] on filedocumented in this encounter Care Teams On Site Construction Superintendent Relationship Specialty Start Date End Date Frank Edmonds MD [address] [phone] PCP - General 05/20/20 10/25/21 documented as of this encounter
--- OUTSIDE RECORDS SUMMARY | 2024-04-18 14:26 | XMS_ITS | Encounter Summary ---
Author Organization [place] [place] [address] Care Team Providers Care Digital Production Artist Name Role Phone Unavailable Primary Care Provider Unavailabl e Encounter Details Date Type Department Care Team (Late st Contact Info) Description 11/25/2019 Hospital Encounter TH HISTORIC ENCOUNTERS EASTERN CONVERSION ONLY Selma Ace MD [address] [place] [address] Other chest pain Social History Tobacco Use [...] this encounter Results * TTE W/Doppler Complete [id number] [facility] (11/26/2019 10:09 AM EDT) Anatomical Region Laterality Modality Other 11/25/2019 8:17 AM EDT Narrative 11/26/2019 10:09 AM EDT [facility] [address] [place], [place] ??[address] Transthoracic Echocardiogram Report Name: ?? WEIR, TEJA ?Exam Date: ?? 11/25/2019 08:17 ?? Ordering Physician:SELMA ACE Age: ?49 ? Gender: ??F ? Ht (in):65 ?Wt (lb): 168 ?Referring Physician:SHIRLEY WOLF ?BSA: ?? 1.87 ? Order Dispatcher Chief: ? DAM : ?1970 ?BP (mmHg): ??108 ?/ 70 Exam Location: [facility] Type of Exam: Adult CPT's: ?02725 Clinical Indications:OTHER CHEST PAIN / LIGHTHEADED / [...] Procedure Note Historical, Cardiovascular Results, - 07/08/2020 [facility] in Cardiology [address] [place] [address] Transthoracic Echocardiogram Report Name: TEJA DOUGLAS Exam Date: 11/25/2019 08:17Ordering Physician:SELMA ACE Age: 49 Gender: F Ht (in):65 Wt (lb): 168Referring Physician:SHIRLEY WOLF BSA: 1.87Sonographer: TREVOR : 1970 BP (mmHg): 108 / 70 Exam Location: [facility] Type of Exam: Adult CPT's: 88975 Clinical Indications:OTHER CHEST PAIN / LIGHTHEADED / [...] E to A Ratio 1.85 TR Peak Bdvpfuwq354.00 cm/ MV Deceleration Time 153.54 ms TR Peak Kxklzudj43.28 mmHg Cullen Nelson MD, [facility] (Electronically Signed) Final Date: 26 November 2019 10:08 us Cardiovascular Results Historical CV HISTORIC AL CONV PROCEDURES Final Result * Stress Test Cardiac Tracing [address] [facility] (11/25/2019 7:37 PM EDT) Anatomical Region Laterality Modality Other 11/25/2019 9:09 AM EDT Narrative 11/25/2019 7:37 PM EDT [facility] in Cardiology [address] [place], [place] ??[address] Stress Test Report Name: ??CARLOS TEJA ? Exam Date: 11/25/2019 09:09 ?Ordering Phys: SELMA ACE ?Exam Location: [facility] ? Referring Phys:SHIRLEY WOLF Age: 49 ? Gender: F ? Ht (in):65 ??Wt (lb):163 BSA ??1.84 ?Technologist: ??debo, rn : ?1970 Procedure CPT: ?? 91311 Indications: ? Other chest pain, Palpitations, Other [...] ??/86 ?% MPHR: ?? 77 ? Double Product:23957 BP Response: ? Normal blood pressure response [...] Note Historical, Cardiovascular Results, MD - 07/08/2020 [facility] [place] [address] Stress Test Report Name: TEJA DOUGLAS Exam Date: 11/25/2019 09:09Ordering Phys: SELMA ACE Exam Location: [facility] OfficeReferring Phys:SHIRLEY LUCIANO Age: 49 Gender: F Ht (in):65 Wt (lb):163 BSA 1.84Technologist: anny edmondson : 1970 Procedure CPT: 02547 Indications: Other chest pain, Palpitations, Other forms of dyspnea,Bradycardia, unspecified ICD-9 Codes: R07.89 R00.2 R06.09 R00.1 Patient History: chest pain, dyspnea, palpitations Medications: propanolol, pravastatin STRESS TEST Ovi Protocol Exercise Duration(min:sec):6:00 METS: 7.0 mets Resting HR (bpm):79 Resting BP (mmHg): 132 /78 MPHR: 147Target HR: 7499 Peak HR (bpm): 134 Peak BP (mmHg): 152 /86 % MPHR: 77Double Product:39160 BP Response: Normal blood pressure response during [...]
--- OUTSIDE RECORDS SUMMARY | 2024-04-18 14:26 | XMS_ITS | Encounter Summary ---
Author Organization [facility] [place] [address] Care Team Providers Care Deposition Reporter Name Role Phone Unavailable Primary Care Provider Unavailabl e Encounter Details Date Type Department Care Team (Late st Contact Info) Description 12/11/2019 Hospital Encounter TH HISTORIC ENCOUNTERS EASTERN CONVERSION ONLY Selma Ace MD [address] [place] [address] Palpitations Social History Tobacco Use Types Packs/Day [...] money to get more. Never true 10/14/2020 [facility] Answer Date Re corded How [...] encounter Results * Myocard Perf Spect Multiple [id number] [facility] (12/11/2019 8:45 PM EDT) Anatomical Region Laterality Modality Other 12/11/2019 9:02 AM EDT Narrative 12/11/2019 8:45 PM EDT [facility] [address] [place], [place] ??[address] Regadenoson Stress Nuclear SPECT Report Name: ??TEJA DOUGLAS ?Exam Date: 12/11/2019 09:02 ?? Ordering Phys: SELMA ACE ?: ? 1970 ? Referring Phys:SELMA ACE Age: 49 ? Gender: F ? Ht (in):65 ??Wt (lb):163 BSA ??1.84 ?Technologist: ??JAM Procedure CPT: ?? 76107 Indications: ? Other chest pain ICD Codes: ? R07.89 Cardiac History: palpitations [facility] Appropriateness Criteria: Cardiac Medications: ?pravastatin, propranolol er [...] intravenously at rest. Resting SPECT images were zsrexvmc56 ? minutes past injection. Post Stress Imagin.9 ??mCi of Tc-99m Sestamibi was injected intravenously at peak pharmacological stress. Post Stress SPECT images were mdnliskx67 ?minutes past tracer injection. Technical Quality: ?? [...] Procedure Note Historical, Cardiovascular Results, - 07/08/2020 [facility] [address] [place] [address] Regadenoson Stress Nuclear SPECT Report Name: TEJA DOUGLAS Exam Date: 12/11/2019 09:02Ordering Phys: SELMA ACE : 1970Referring Phys:SELMA ACE Age: 49 Gender: F Ht (in):65 Wt (lb):163 BSA 1.84Technologist: FRANKIE Procedure CPT: 98274 Indications: Other chest pain ICD Codes: R07.89 Cardiac History: palpitations [facility] Appropriateness Criteria: Cardiac Medications: pravastatin, propranolol er [...] injectedintravenously at rest. Resting SPECT images were wloalcmy99 minutes past injection. Post Stress Imagin.9 mCi of Tc-99m Sestamibi was injectedintravenously at peak pharmacological stress. Post Stress SPECT images were qkmfxwuf75 minutes past tracerinjection. Technical Quality: Technically adequate [...]
--- OUTSIDE RECORDS SUMMARY | 2024-04-18 14:26 | XMS_ITS | Encounter Summary ---
Author Organization [place] [address] Care Team Providers Care Metrology Technician Name Role Phone Unavailable Primary Care Provider Unavailabl e Encounter Details Date Type Department Care Team (Latest Contact Info) Description 01/23/2020 Hospital Encounter TH HISTORIC ENCOUNTERS EASTERN CONVERSION ONLY Ruiz Simon PA [address] [place] [address] Other diseases of larynx Social History Tobacco [...] Associated Diagnosis Comments CT NECK W/CONT OP (60483) Routine 01/23/2020 8:49 AM EST documented in this encounter Results * CT NECK W/CONT OP (77588) (01/23/2020 8:49 AM EST) Anatomical Region Laterality Modality Computed Tomogra phy 01/23/2020 8:26 AM EST Narrative 01/23/2020 8:49 AM EST EXAMINATION: [phone] - CT NECK W/CONTRAST WORKING DIAGNOSIS: ?? [...] Note Lavon Bartlett MD - 04/16/2020 EXAMINATION: [id number] - CT NECK W/CONTRAST WORKING DIAGNOSIS: chest [...]
--- OUTSIDE RECORDS SUMMARY | 2024-04-18 14:26 | XMS_ITS | Data Portability ---
Author Organization [facility] [address] Address [address] [place] [address] Assessment No assessment recorded. Plan of Treatment Reminders Order Date Submit Date Provider Last Modified By Organization Details Last Modified Time Details Appointments None recorded. Lab None recorded. Referral orthopedic spine surgeon referral 2022 023 [email or web address] Not available 11:04:13 Procedures None recorded. Surgeries None recorded. Imaging None recorded. Medication Orders Medrol (Philip) 4 mg tablets in a dose pack 2022 023 [id number], [address] [place], [place], [id number], 10:14:12 cyclobenzap rine 10 mg tablet 2022 023 [id number], [address] [place], [place], [phone], 16:54:46 Patient TargetsNo targets recorded. Patient Instructions Encounter Date Encounter Id Patient Instructions Last Modified By Organization Details Last Modified Time 04/30/2022 [id number] getting back to normal after low back pain: care instructions [email or web address] Not available 04/30/2022 16:54:37 05/07/2022 [id number] getting back to normal after low back pain: care instructions [email or web address] Not available 05/07/2022 10:14:04 Reason for Referral Orthopedic Spine Surgeon Ref erral for Low back pain Referring Physician: Cristian Trujillo, Urgent Care, Encounter Date: 05/07/2022 Problems Name Problem SNOMED Code Status Onset Date Resolution Date Notes Provider Name and Address Organization Details Recorded Time Depressive disorder 00436551 Active 2022 Christy [place] null, [place] - [facility] 3 15:08:17 Migraine 14083717 Active 2022 Christy Rama null, [place] - [facility] 3 15:08:22 Anxiety 53912160 Active 2022 Christy Rama null, [place] - [facility] 3 15:08:27 Neuralgia 68305300 Active 2022 Christy [place] null, [place] - [facility] 3 15:08:45 Hyperlipidemia 82444987 Active 2022 Christy [place] null, [place] - [facility] 3 15:08:57 [...] Updated DateTime 3 165.1 cm 30 kg/m2 90593.6 3 g 99 % 99 % 10 98 /min 20 /min 98.1 [degF] 116 mm[Hg] 78 mm[Hg] Christy Ontiveros [facility] 3 15:11:40 Date Recorded Body height Body mass index (BMI) Body weight Pain severity - 0-10 verbal numeric rating [Score] - Reported Oxygen saturation Oxygen saturation in Arterial blood by Pulse oximetry Heart rate Respiratory rate Body temperature Systolic blood pressure Diastolic blood pressure Provider Name and Address Organization Details Last Updated DateTime 3 165.1 cm 30 kg/m2 76447.6 3 g 9 100 % 100 % 104 /min 18 /min 98.1 [degF] 127 mm[Hg] 79 mm[Hg] Mollylatasha Salamancaannika [place] [employer] 3 09:28:21 Social History Question Answer Notes LastModified by Red-rabbitizat ion Details LastModified Time Tobacco Smoking Status Former Smoker Christy gu [facility] 04/30/2022 15:10:10 What Is Your Level Of Alcohol Consumption? None Information not available 04/30/2022 When Did You Quit Smoking? [facility] Information not available 04/30/2022 Have You [...] SNOMED-CT Code Diagnosis ICD10 Code Diagnosis Note [id number] CHIVO DERAS MD _Chi [address] [address] 04/30/2022 10:46:51 04/30/2022 16:55:38 Spasm of back muscles 742043535 M62.830 MUSCU LOSKELETAL PAIN can be managed [...] appointmen t within the next 2 weeks. [id number] Cristian Trujillo DO _Chi [facility] [address] [place] [address] 05/07/2022 08:21:34 05/07/2022 10:24:41 Low back pain 131037492 M54.50 Likely muscular originReco mmend c/w muscle relaxerTop ical analgesicD /w [facility] patient potential adverse side effects [...] Member ID Guarantor Name 04/30/2022 1 MEDICARE B-IN: [facility] [employer] Elenita Douglas [id number] Elenita Douglas 05/07/2022 1 MEDICARE B-IN: [facility] Elenita Douglas [id number] Elenita Douglas Notes Date Note Type [...] they stated was fine. She states her corn grinder told her not to take NSAIDS for pain. She says she gets too hyper when she takes prednisone. CHIVO DERAS MD [address] [place], [address], [place] - [facility] 04/30/2022 17:01:44 05/07/2022 [...] Trujillo, DO [address] [place], [address], [place] - [facility] 05/07/2022 10:38:57 OBGyn Episode No OBEpisode recorded.
--- OUTSIDE RECORDS SUMMARY | 2024-04-18 14:27 | XMS_ITS | Clinical Summary ---
Author Organization [facility] Address [address] [place] [address] Phone Care Team Providers Care Sound System Installer Name Role Phone Physician, No Pcp Primary [...] coronary intervention Coronary artery disease invo lving ute heart without angina pectoris 11/19/2020 Assessment & [...] (10/12/2020): Added automatically from request for surgery [id number] Assessment & Plan (10/12/2020 3:40 PM EDT): [...] your next appointment. Limit the use of bdyt-qnp-mjuttbr and prescription pain medications to 2 - [...] preservative (Fluzone; Afluria) 6mo and older 01/18/2016 Zopa/ScheduleSoft SARS-CoV-2 COVID -19, vector-nr, rS-Ad26, preservative free [...] TONSILLECTOMY ADENOIDECTOMY, BILATERAL MYRINGOTOMY AND TUBES PROCEDURE: [place] TONSILLECTOMY & ADENOIDECTOMY <AGE 14 OTHER SURGICAL HISTORY PROCEDURE: [place] ARTHRS KNEE W/MENISCECTOMY MED&LAT W/SHAVING; COMMENT: left side OTHER SURGICAL HISTORY PROCEDURE: [place] DILATION & CURETTAGE DX&/THER NONOBSTETRIC; COMMENT: 3 [...] this topic Medical Devices Implanted Type Area Scanning Manager Device Identifier Shelf Expiration Date Model / [...] LAB CHEMISTRY METHOD 02/02/2022 8:51 AM EST [facility] Potassium 3.1(L) 3.5 - 5.1 mmol/L LAB CHEMISTRY METHOD 02/02/2022 8:51 AM EST [facility] Chloride 114(H) 98 - [...] LAB CHEMISTRY METHOD 02/02/2022 8:51 AM EST [facility] Albumin 3.8 3.4 - 5.0 g/dL LAB CHEMISTRY METHOD 02/02/2022 8:51 AM [facility] Total Bilirubin 0.6 0.2 - 1.0 mg/dL LAB CHEMISTRY METHOD 02/02/2022 8:51 AM [facility] Blood Venous blood specimen / Unknown Venipuncture / Unknown 02/02/2022 7:58 AM EST 02/02/2022 8:04 AM EST us Adonis Zafar DO LAB BLOOD ORDERABLES Final Res ult [facility] [address] [place] [address] * HIV 1, HIV 2 antibody screen, P24 antigen with reflex to differentiation (10/26/2021 2:27 PM EDT) HIV Combo AB/AG Negative/ Nonreacti ve Negative/ Nonreacti ve LAB CHEMISTRY METHOD 10/27/2021 5:14 PM EDT [facility] Blood Venous blood specimen / Unknown Venipuncture / Unknown 10/26/2021 2:27 PM EDT 10/26/2021 2:27 PM EDT Narrative [facility] - 10/27/2021 5:14 PM EDT [...] 5. Only REACTIVE results are reported to [facility]. 6. REACTIVE results will be sent to our Reference Laboratory for HIV-1 AB, HIV-2 AB differentiation, and HIV-1 RNA detection by Assistant Casino Shift Manager-Mediated Amplification (TMA) and if positive, quantitation by Real-Time PCR. us Gale Howard NP LAB BLOOD ORDERABLES Final Res ult [facility] [address] [place] [address] * Hepatitis panel, acute (10/26/2021 2:27 PM [...] AM EDT Performed at: ??01 - [facility] [address] ??[id number] Dining Services Director: Yahir Moss MD, Phone: ??[phone] us Gale Howard NP LAB BLOOD ORDERABLES Final Res ult [facility] * (ABNORMAL) Lipid panel (10/26/2021 2:27 PM EDT) Cholesterol 153 <200 mg/dL LAB CHEMISTRY METHOD 10/26/2021 4:57 PM EDT [facility] Triglycerides 157(H) <150 mg/dL LAB CHEMISTRY METHOD 10/26/2021 4:57 PM EDT [facility] HDL 49(L) >59 mg/dL LAB CHEMISTRY METHOD 10/26/2021 4:57 PM EDT [facility] Comment: <35 mg/dl is the cut-point for increased Coronary Heart Disease (CHD) risk. LDL Calculated 73 0 - 99 mg/dL LAB CHEMISTRY METHOD 10/26/2021 4:57 PM EDT [facility] VLDL Cholesterol Francisco 31.4(H) <=30 mg/dL LAB CHEMISTRY METHOD 10/26/2021 4:57 PM EDT [facility] Blood Venous blood specimen / Unknown Venipuncture / Unknown 10/26/2021 2:27 PM EDT 10/26/2021 2:27 PM EDT Gale Howard SH[employer]EMMER LAB BLOOD ORDERABLES Final Res ult [facility] [address] [place] [address] * Cervical Cancer Screening: HPV (12/02/2019) Pathologist [facility] Cervical Cancer Screening: HPV abstracted Historical Provider [...] currently active code status orders. Care Teams Sound System Installer Relationship Specialty Start Date End Date Physician, No Pcp PCP - General 02/02/22
== END 2024-04-18 12:30 | disposition home or self-care (01) ==
PROVIDERS: PCP Internal Medicine; Visit Provider Internal Medicine Hypertension Specialist
DX: E87.6 Hypokalemia (principal); N39.46 Mixed incontinence
CPT/HCPCS: 99213

== ENCOUNTER → 2024-04-18 11:48 | Outpatient (BNVA) | payer MEDICARE, MEDICAID, SELFPAY | PROVIDERS: PCP Internal Medicine; Visit Provider Internal Medicine Hypertension Specialist | DX: E87.6 Hypokalemia (principal); N39.46 Mixed incontinence | CPT/HCPCS: 99212 ==

== ENCOUNTER 2024-04-24 09:19 | Outpatient (AMB) | payer MEDICARE, MEDICAID, SELFPAY ==
--- NOTE | 2024-04-24 09:21 | A.OFFPC_ITS ---
Vital Signs 04/24/24 09:23 Height 5 ft 5 in Weight 109 lb BMI 18.1 BP 138/88 Blood Pressure Location Rt brachial Position Sitting Respiration 18 Pulse 68 Pulse Source Pulse Oximeter Pulse Oximetry (%) 99 Oxygen Delivery Method Room Air Intake Visit Reasons: Annual PE/secondary covers Allergies cefazolin [From Anc] Allergy (Mild, Verified 04/24/24 09:25) Swelling Medication List - Last Reconciled 04/24/24 by Ciro White MD atorvastatin 80 mg PO QPM clopidogrel 75 mg PO DAILY cyclobenzaprine 5 mg PO Q8H PRN magnesium oxide 400 mg PO DAILY omeprazole 20 mg PO DAILY ondansetron HCl 4 mg PO ONCE PRN 90 days oxycodone 5 mg PO Q8H PRN 30 days paroxetine HCl 20 mg PO DAILY potassium chloride ER 10 mEq PO DAILY solifenacin 10 mg PO DAILY Tobacco use date assessed: 04/24/24 Dental Screening Dental Screen Date: 04/24/24 Did you have a dental visit in the last 12 months?: Yes Did you have a dental problem in the last 6 months where you did not have access to dental care?: No Was dental information given to patient?: Patient has dentist HPI Annual PE/secondary covers HPI Details Physical exam - The patient is a 54-year-old female pr esenting for a wellness and physical examination with multiple chronic conditions. Patient has a history OCD, depression, personal tree disorder, coronary artery disease, urinary incontinence intercostal neuralgia, narcotic dependency, benign head, On long-term blood thinners, lipid disorder, muscle spasms, chronic GERD, chronic nausea - She reports management of chronic inte rcostal neuralgia with narcotic pain medication, dependency concerns are there - Long-standing nausea since childhood i s noted, possibly exacerbated by medication, with significant weight loss over two years. - Established nephropathy under Dr. Aaron aguilar care with planned fasting labs and completed urine drug screening today. - Reports multiple psychiatric condition s: Personality Disorder, OCD, Anxiety, Depression, and Agoraphobia, with ongoing management attempts. - Her gastrointestinal history includes prior colonoscopy that was unremarkable; she experiences continued gastrointestinal complaints. - Has not yet undergone a mammogram sinc e her move; prepared to schedule a mammogram concurrently with a neurology appointment. Health Maintenance - Encouraged scheduling of mammogram at [facility]; location provided to patient. - Importance of regular fasting lab work including liver function tests, cholesterol, and glucose emphasized. - Discussion regarding need for possible endoscopy and colonoscopy revisited; patient is to consider gastroenterology follow-up. - Scheduled neurology and OBGYN follow-u ps recommended. Diagnostic results - Previous colonoscopy 4-5 years ago, no rmal findings. Patient Instructions - Book mammogram appointment at [facility], suggested to coordinate with the neurology visit. - Follow-up with nephrology Dr. Chin - Consider gastroenterology consultation for persistent nausea and weight loss issues. - Discuss the scheduling of a mammogram due to the extended interval since the last exam. Review of Systems - General: No fever no chills - Neurological: No headaches no dizzin ess - Ear nose throat: No sore throat no hearing difficulty no ear pain - Cardiovascular: No syncope, no chest pain, no palpitations - Gastrointestinal: No nausea vomiting or diarrhea - Endocrine: No polyuria polydipsia no heat intolerance - Genitourinary: No dysuria - Skin: No new complaints Physical Exam General: Cooperative, healthy appearing, comfortable, no acute distress Orientation: Patient oriented x3 Head: Normal to inspection Ears: Within normal limit visually Nose: Normal external nose present Face and sinus: Normal facial exam Eyes: Appearance normal, extraocular movement intact pupils reactive Neck: Normal visual inspection and supple Respiratory: Normal respiratory effort and able to speak in complete sentences. Clear to auscultation, no stridor Cardiovascular: S1 and S2 Breast exam declined GI: Normal to inspection. Soft to palpation and nontender Skin: Turgor normal, no acute findings Neuro: Patient oriented x3, motor sensory intact, balance intact, tandem pass Extremities: Normal to inspection PFSH Medical History Obsessive compulsive disorder Agoraphobia Personality disorder Anxiety and depression 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) Surgical History Hx of dilation and curettage Hx of knee surgery Hx of tonsillectomy Family History Father Heart attack Hypertension Mother Hypertension Social History Household Members Other:: mom Housing: Condominium Alcohol intake: never Patient Tobacco Use Status: Current everyday Tobacco user Tobacco use type: Cigarette Years Smoked: 32 years e-Cigarette/Vaping Use: Never Used Second Hand Smoke Exposure: No service: No Current occupational status: disabled Current occupational exposures/hazards: No Sexual orientation: Straight/Heterosexual Gender identity: Female Cognitive needs: No Hearing needs: No Vision needs: Yes Questionnaire Thrive Questionnaire Date Thrive assessed: 02/28/24 I am a: Patient What is your living situation today?: I have a steady place to live Within the past 12 months, did the food you bought not last and you didn't have the money to get more?: I choose not to answer this question Within the past 12 months, did you worry whether your food would run out before you got money to buy more?: Never true Do you have trouble paying for medicines?: No Do you have trouble getting transportation to medical appointments?: No Do you have trouble paying your heating and electricity bill?: No Do you have trouble taking care of your child, family member or friend?: No Do you have trouble with day-to-day activities such as bathing, preparing meals, shopping, managing finances, etc.?: No Are you currently unemployed and looking for a job?: No Are you interested in more education?: No Please select the resources that you would like help with: None Currently or been in a relationship where the following occur: No concerns reported THRIVE Score: 0 AUDIT C Alcohol Use Questionnaire (AUDIT-C) 1. How often do you have a drink containing alcohol?: Never 3. How often do you have six or more drinks on one occasion?: Never Total Score: 0 Score Reviewed/Action Taken: Yes FIFI-7 AMB Questionnaire FIFI-7 Date FIFI - 7 assessed: 02/28/24 Source: Developed by Drs. Dallas Keller, Cassie Frankel, Glynn Blackwell and colleagues, with an educational kane from [employer]. Physical exam (Primary Care) Vital Signs: Last Vital Signs Pulse 68 04/24/24 09:23 Resp 18 04/24/24 09:23 BP 138/88 04/24/24 09:23 Pulse Ox 99 04/24/24 09:23 Oxygen Delivery Method Room Air 04/24/24 09:23 BMI result Body Mass Index 18.1 Tobacco/Smoking Status: Tobacco use Status Tobacco use date assessed 04/24/24 04/24/24 09:26 Patient Tobacco Use Status Current everyday Tobacco 04/24/24 09:22 Tobacco use type Cigarette 04/24/24 09:22 e-Cigarette/Vaping Use Never Used 04/24/24 09:22 Thrive Assessment: Date of Thrive Assessment Date Thrive assessed 02/28/24 04/24/24 09:22 Currently or been in a relationship where the following occur: No concerns reported Coding Level of Care Code Est Pt Level 4 (39126) Est Pt Prev Care 40-64y(46344) Diagnoses Encounter for general adult medical examination with abnormal findings Z00.01 Impaired fasting blood sugar R73.01 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 Recurrent major depressive disorder, in partial remission F33.41 Active/Remission status: in partial remission Anxiety, generalized F41.1 Coronary artery disease involving [place] coronary artery of [place] heart without angina pectoris I25.10 Associated angina: without angina Coronary Disease-Associated Artery/Lesion type: [place] artery [place] vs. transplanted heart: [place] heart Lipid disorder E78.9 Narcotic dependency, continuous F11.20 Mixed stress and urge urinary incontinence N39.46 Urinary Incontinence type: mixed stress and urge incontinence Chronic primary pain of thoracic region M54.6; G89.29 Other obsessive-compulsive disorders F42.8 Obsessive-compulsive disorder type: other Chronic nausea R11.0 Weight loss R63.4 Assessment & Plan Assessment & Plan (1) Encounter for general adult medical examination with abnormal findings: Code(s): Z00.01 - Encounter for general adult medical examination with abnormal findings Category: Medical (2) Impaired fasting blood sugar: Code(s): R73.01 - Impaired fasting glucose Category: Medical (3) Intercostal neuralgia: Onset Date: Unknown Code(s): G58.8 - Other specified mononeuropathies Category: Medical (4) Major depression, recurrent: Code(s): F33.9 - Major depressive disorder, recurrent, unspecified Category: Medical Qualifiers: Active/Remission status: in partial remission Qualified Code(s): F33.41 - Major depressive disorder, recurrent, in partial remission (5) Anxiety, generalized: Code(s): F41.1 - Generalized anxiety disorder Category: Medical (6) Coronary artery disease: Code(s): I25.10 - Atherosclerotic heart disease of [place] coronary artery without angina pectoris Category: Medical Qualifiers: Associated angina: without angina Coronary Disease-Associated Artery/Lesion type: [place] artery [place] vs. transplanted heart: [place] heart Qualified Code(s): I25.10 - Atherosclerotic heart disease of [place] coronary artery without angina pectoris (7) Lipid disorder: Code(s): E78.9 - Disorder of lipoprotein metabolism, unspecified Category: Medical (8) Narcotic dependency, continuous: Code(s): F11.20 - Opioid dependence, uncomplicated Category: Medical (9) Urine incontinence: Comment: Chronic. With microscopic hematuria. Being followed by Urology Code(s): R32 - Unspecified urinary incontinence Category: Medical Qualifiers: Urinary Incontinence type: mixed stress and urge incontinence Qualified Code(s): N39.46 - Mixed incontinence (10) Chronic primary pain of thoracic region: Code(s): M54.6 - Pain in thoracic spine; G89.29 - Other chronic pain Category: Medical (11) Obsessive compulsive disorder: Code(s): F42.9 - Obsessive-compulsive disorder, unspecified Category: Medical Qualifiers: Obsessive-compulsive disorder type: other Qualified Code(s): F42.8 - Other obsessive-compulsive disorder (12) Chronic nausea: Code(s): R11.0 - Nausea Category: Medical (13) Weight loss: Code(s): R63.4 - Abnormal weight loss Category: Medical Plan Physical exam - The patient is a 54-year-old female presenting for a wellness and physical examination with multiple chronic conditions. Patient has a history OCD, depression, personal tree disorder, coronary artery disease, urinary incontinence intercostal neuralgia, narcotic dependency, benign head, On long-term blood thinners, lipid disorder, muscle spasms, chronic GERD, chronic nausea - She reports management of chronic intercostal neuralgia with narcotic pain medication, dependency concerns are there - Long-standing nausea since childhood is noted, possibly exacerbated by medication, with significant weight loss over two years. - Established nephropathy under Dr. John gomez with planned fasting labs and completed urine drug screening today. - Reports multiple psychiatric conditions: Personality Disorder, OCD, Anxiety, Depression, and Agoraphobia, with ongoing management attempts. - Her gastrointestinal history includes prior colonoscopy that was unremarkable; she experiences continued gastrointestinal complaints. - Has not yet undergone a mammogram since her move; prepared to schedule a mammogram concurrently with a neurology appointment. Health Maintenance - Encouraged scheduling of mammogram at [facility]; location provided to patient. - Importance of regular fasting lab work including liver function tests, cholesterol, and glucose emphasized. - Discussion regarding need for possible endoscopy and colonoscopy revisited; patient is to consider gastroenterology follow-up. - Scheduled neurology and OBGYN follow-ups recommended. Diagnostic results - Previous colonoscopy 4-5 years ago, normal findings. Patient Instructions - Book mammogram appointment at [facility], suggested to coordinate with the neurology visit. - Follow-up with nephrology Dr. Chin - Consider gastroenterology consultation for persistent nausea and weight loss issues. - Discuss the scheduling of a mammogram due to the extended interval since the last exam. Orders: Orders Complete Blood Count Auto Diff Today E78.9 - Disorder of lipoprotein metabolism, unspecified, F11.20 - Opioid dependence, uncomplicated, F33.41 - Major depressive disorder, recurrent, in partial remission, F41.1 - Generalized anxiety disorder, F42.9 - Obsessive-compulsive disorder, unspecified, G58.8 - Other specified mononeuropathies, G89.29 - Other chronic pain, I25.10 - Atherosclerotic heart disease of [place] coronary artery without angina pectoris, M54.6 - Pain in thoracic spine, N39.46 - Mixed incontinence, R73.01 - Impaired fasting glucose Comprehensive [place]. Panel Fast Today E78.9 - Disorder of lipoprotein metabolism, unspecified, F11.20 - Opioid dependence, uncomplicated, F33.41 - Major depressive disorder, recurrent, in partial remission, F41.1 - Generalized anxiety disorder, F42.9 - Obsessive-compulsive disorder, unspecified, G58.8 - Other specified mononeuropathies, G89.29 - Other chronic pain, I25.10 - Atherosclerotic heart disease of [place] coronary artery without angina pectoris, M54.6 - Pain in thoracic spine, N39.46 - Mixed incontinence, R73.01 - Impaired fasting glucose Opiates GCMS Expanded, Ur Today F11.20 - Opioid dependence, uncomplicated, G89.29 - Other chronic pain, M54.6 - Pain in thoracic spine Lipid Panel Today E78.9 - Disorder of lipoprotein metabolism, unspecified, F11.20 - Opioid dependence, uncomplicated, F33.41 - Major depressive disorder, recurrent, in partial remission, F41.1 - Generalized anxiety disorder, F42.9 - Obsessive-compulsive disorder, unspecified, G58.8 - Other specified mo noneuropathies, G89.29 - Other chronic pain, I25.10 - Atherosclerotic heart disease of [place] coronary artery without angina pectoris, M54.6 - Pain in thoracic spine, N39.46 - Mixed incontinence, R73.01 - Impaired fasting glucose TSH reflex Free T4 Today E78.9 - Disorder of lipoprotein metabolism, unspecified, F11.20 - Opioid dependence, uncomplicated, F33.41 - Major dep ressive disorder, recurrent, in partial remission, F41.1 - Generalized anxiety disorder, F42.9 - Obsessive-compulsive disorder, unspecified, G58.8 - Other specified mononeuropathies, G89.29 - Other chronic pain, I25.10 - Atherosclerotic heart disease of [place] coronary artery without angina pectoris, M54.6 - Pain in thoracic spine, N39.46 - Mixed incontinence, R73.01 - Impaired fasting glucose Vitamin D 25-OH (D2 and D3) Today E78.9 - Disorder of lipoprotein metabolism, unspecified, F11.20 - Opioid dependence, uncomplicated, F33.41 - Major depressive disorder, recurrent, in partial remission, F41.1 - Generalized anxiety disorder, F42.9 - Obsessive-compulsive disorder, unspecified, G58.8 - Other specified mononeuropathies, G89.29 - Other chronic pain, I25.10 - Ath erosclerotic heart disease of [place] coronary artery without angina pectoris, M54.6 - Pain in thoracic spine, N39.46 - Mixed incontinence, R73.01 - Impaired fasting glucose MM tomosynthesis screening BI Today Z12.31 - Encounter for screening mammogram for malignant neoplasm of breast Drug Screen Urine Today F11.20 - Opioid dependence, uncomplicated, G89.29 - Other chronic pain, M54.6 - Pain in thoracic spine Referrals Gastroenterology Referral R11.0 - Nausea, R63.4 - Abnormal weight loss INJECTION MOLDING 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 5 mg PO Q8H 30 days PRN 90 tabs 0RF pain
[2024-04-24 09:23] VITALS: BP 138/88; PULSE 68; RESP 18; O2SAT 99; BMI 18.1
--- OUTSIDE RECORDS SUMMARY | 2024-04-24 10:08 | XMS_ITS | Encounter Summary ---
Author Organization [employer] [place] [address] Care Team Providers Care Metallographic Technician Name Role Phone Frank Edmonds MD Primary Care Provider [phone] Encounter Details Date Type Department Care Team (Late st Contact Info) Description 06/15/2020 2:06 PM EDT Hospital Encounter [facility] [address] [place] [phone] Darinel Sanchez MD [address] [place] [address] Social History Tobacco Use Types [...] on filedocumented in this encounter Care Teams Metallographic Technician Relationship Specialty Start Date End Date Frank Edmonds MD [address] [phone] PCP - General 05/20/20 10/25/21 documented as of this encounter
--- OUTSIDE RECORDS SUMMARY | 2024-04-24 10:08 | XMS_ITS | Encounter Summary ---
Author Organization [facility] [place] [address] Care Team Providers Care Tank Car Repairer Name Role Phone Unavailable Primary Care Provider Unavailabl e Encounter Details Date Type Department Care Team (Latest Contact Info) Description 01/23/2020 Hospital Encounter [facility] ENCOUNTERS [facility]AST[facility] CONVERSION ONLY Ruiz Simon PA [address] [place] [address] Other diseases of larynx Social History Tobacco [...] Associated Diagnosis Comments CT NECK W/CONT OP (34867) Routine 01/23/2020 8:49 AM EST documented in this encounter Results * CT NECK W/CONT OP (28812) (01/23/2020 8:49 AM EST) Anatomical Region Laterality Modality Computed Tomogra phy 01/23/2020 8:26 AM EST Narrative 01/23/2020 8:49 AM EST EXAMINATION: [phone] - CT NECK W/CONTRAST WORKING DIAGNOSIS: ?? [...] Note Lavon Bartlett MD - 04/16/2020 EXAMINATION: [phone] - CT NECK W/CONTRAST WORKING DIAGNOSIS: chest [...]
--- OUTSIDE RECORDS SUMMARY | 2024-04-24 10:08 | XMS_ITS | Encounter Summary ---
Author Organization [employer] [place] [address] Care Team Providers Care Leasing Machine Tender Name Role Phone Frank Edmonds MD Primary Care Provider Encounter Details Date Type Department Care Team (Late st Contact Info) Description 06/11/2020 10:20 AM EDT Hospital Encounter [facility] [address] [facility] [address] [place] [phone] Thaddeus De Anda MD [address] [place] [address] Social History Tobacco Use Types Packs/Day Years [...] on filedocumented in this encounter Care Teams Leasing Machine Tender Relationship Specialty Start Date End Date Frank Edmonds MD [address] [phone] PCP - General 05/20/20 10/25/21 documented as of this encounter
--- OUTSIDE RECORDS SUMMARY | 2024-04-24 10:08 | XMS_ITS | Encounter Summary ---
Author Organization [place] [address] Care Team Providers Care Beater Operator Name Role Phone Unavailable Primary Care Provider Unavailabl e Encounter Details Date Type Department Care Team (Late st Contact Info) Description 12/11/2019 Hospital Encounter [facility] HISTORIC ENCOUNTERS EASTERN CONVERSION ONLY Selma Ace MD [address] [place] [address] Palpitations Social History Tobacco Use Types Packs/Day [...] encounter Results * Myocard Perf Spect Multiple [id number] [facility] (12/11/2019 8:45 PM EDT) Anatomical Region Laterality Modality Other 12/11/2019 9:02 AM EDT Narrative 12/11/2019 8:45 PM EDT [facility] [address] [place], [place] [address] Regadenoson Stress Nuclear SPECT Report Name: ??TEJA DOUGLAS ?Exam Date: 12/11/2019 09:02 ?? Ordering Phys: SELMA ACE ?: ? 1970 ? Referring Phys:SELMA ACE Age: 49 ? Gender: F ? Ht (in):65 ??Wt (lb):163 BSA ??1.84 ?Technologist: ??JAM Procedure CPT: ?? 90780 Indications: ? Other chest pain ICD Codes: ? R07.89 Cardiac History: palpitations [facility] Appropriateness Criteria: Cardiac Medications: ?pravastatin, [...] intravenously at rest. Resting SPECT images were [id number] ? minutes past injection. Post Stress Imagin.9 ??mCi of Tc-99m Sestamibi was injected intravenously at peak pharmacological stress. Post Stress SPECT images were [id number] ?minutes past tracer injection. Technical Quality: ?? [...] Procedure Note Historical, Cardiovascular Results, - 07/08/2020 [facility] [address] [place] [address] Regadenoson Stress Nuclear SPECT Report Name: TEJA DOUGLAS Exam Date: 12/11/2019 09:02Ordering Phys: SELMA ACE : 1970Referring Phys:SELMA ACE Age: 49 Gender: F Ht (in):65 Wt (lb):163 BSA 1.84Technologist: FRANKIE Procedure CPT: 61045 Indications: Other chest pain ICD Codes: R07.89 Cardiac History: palpitations [facility] Appropriateness Criteria: Cardiac Medications: pravastatin, [...] injectedintravenously at rest. Resting SPECT images were [id number] minutes past injection. Post Stress Imagin.9 mCi of Tc-99m Sestamibi was injectedintravenously at peak pharmacological stress. Post Stress SPECT images were [id number] minutes past tracerinjection. Technical Quality: Technically adequate [...]
--- OUTSIDE RECORDS SUMMARY | 2024-04-24 10:08 | XMS_ITS | Encounter Summary ---
Author Organization [place] [address] Care Team Providers Care Client Support Administrator Name Role Phone Unavailable Primary Care Provider Unavailabl e Encounter Details Date Type Department Care Team (Late st Contact Info) Description 11/25/2019 Hospital Encounter TH HISTORIC ENCOUNTERS EASTERN CONVERSION ONLY Selma Ace MD [address] [place] [address] Other chest pain Social History Tobacco Use [...] money to get more. Never true 10/14/2020 [facility] Answer Date Re corded How [...] this encounter Results * TTE W/Doppler Complete [id number] [facility] (11/26/2019 10:09 AM EDT) Anatomical Region Laterality Modality Other 11/25/2019 8:17 AM EDT Narrative 11/26/2019 10:09 AM EDT [facility] [address] [place], [place] ??[address] Transthoracic Echocardiogram Report Name: ?? WEIR, TEJA ?Exam Date: ?? 11/25/2019 08:17 ?? Ordering Physician:SELMA ACE Age: ?49 ? Gender: ??F ? Ht (in):65 ?Wt (lb): 168 ?Referring Physician:SHIRLEY WOLF ?BSA: ?? 1.87 ? Supervisor Print Line: ? DAM : ?1970 ?BP (mmHg): ??108 ?/ 70 Exam Location: [facility] Type of Exam: Adult CPT's: ?54223 Clinical Indications:OTHER CHEST PAIN / LIGHTHEADED / [...] Procedure Note Historical, Cardiovascular Results, - 07/08/2020 [facility] in Cardiology [address] [place] [address] Transthoracic Echocardiogram Report Name: TEJA DOUGLAS Exam Date: 11/25/2019 08:17Ordering Physician:SELMA ACE Age: 49 Gender: F Ht (in):65 Wt (lb): 168Referring Physician:SHIRLEY WOLF BSA: 1.87Sonographer: TREVOR : 1970 BP (mmHg): 108 / 70 Exam Location: [facility] Type of Exam: Adult CPT's: 85498 Clinical Indications:OTHER CHEST PAIN / LIGHTHEADED / [...] E to A Ratio 1.85 TR Peak Dvwvpmjr386.00 cm/ MV Deceleration Time 153.54 ms TR Peak Uouwrgdp72.28 mmHg Cullen Nelson MD, [facility] (Electronically Signed) Final Date: 26 November 2019 10:08 us Cardiovascular Results Historical CV HISTORIC AL CONV PROCEDURES Final Result * Stress Test Cardiac Tracing [id number] [facility] (11/25/2019 7:37 PM EDT) Anatomical Region Laterality Modality Other 11/25/2019 9:09 AM EDT Narrative 11/25/2019 7:37 PM EDT [facility] in Cardiology [address] [place], [place] ??[address] Stress Test Report Name: ??CARLOS TEJA ? Exam Date: 11/25/2019 09:09 ?Ordering Phys: SELMA ACE ?Exam Location: [facility] ? Referring Phys:SHIRLEY WOLF Age: 49 ? Gender: F ? Ht (in):65 ??Wt (lb):163 BSA ??1.84 ?Technologist: ??debo, rn : ?1970 Procedure CPT: ?? 00289 Indications: ? Other chest pain, Palpitations, Other [...] ??/86 ?% MPHR: ?? 77 ? Double Product:66626 BP Response: ? Normal blood pressure response [...] Note Historical, Cardiovascular Results, MD - 07/08/2020 [facility] [place] [address] Stress Test Report Name: TEJA DOUGLAS Exam Date: 11/25/2019 09:09Ordering Phys: SELMA ACE Exam Location: [facility] OfficeReferring Phys:SHIRLEY LUCIANO Age: 49 Gender: F Ht (in):65 Wt (lb):163 BSA 1.84Technologist: anny edmondson : 1970 Procedure CPT: 03673 Indications: Other chest pain, Palpitations, Other forms of dyspnea,Bradycardia, unspecified ICD-9 Codes: R07.89 R00.2 R06.09 R00.1 Patient History: chest pain, dyspnea, palpitations Medications: propanolol, pravastatin STRESS TEST Ovi Protocol Exercise Duration(min:sec):6:00 METS: 7.0 mets Resting HR (bpm):79 Resting BP (mmHg): 132 /78 MPHR: 147Target HR: 7499 Peak HR (bpm): 134 Peak BP (mmHg): 152 /86 % MPHR: 77Double Product:97288 BP Response: Normal blood pressure response during [...]
--- OUTSIDE RECORDS SUMMARY | 2024-04-24 10:08 | XMS_ITS | Data Portability ---
Author Organization [facility] [address] Address [address] [place] [address] Assessment No assessment recorded. Plan of Treatment Reminders Order Date Submit Date Provider Last Modified By Organization Details Last Modified Time Details Appointments None recorded. Lab None recorded. Referral orthopedic spine surgeon referral 2022 023 [email or web address] Not available 11:04:13 Procedures None recorded. Surgeries None recorded. Imaging None recorded. Medication Orders Medrol (Philip) 4 mg tablets in a dose pack 2022 023 [id number], [address] [place], [place], [phone], 10:14:12 cyclobenzap rine 10 mg tablet 2022 023 [facility][id number], [address] [place], [place], [phone], 16:54:46 Patient TargetsNo targets recorded. Patient Instructions Encounter Date Encounter Id Patient Instructions Last Modified By Organization Details Last Modified Time 04/30/2022 [id number] getting back to normal after low back pain: care instructions [email or web address] Not available 04/30/2022 16:54:37 05/07/2022 [id number] getting back to normal after low back pain: care instructions [email or web address] Not available 05/07/2022 10:14:04 Reason for Referral Orthopedic Spine Surgeon Ref erral for Low back pain Referring Physician: Cristian Trujillo, Urgent Care, Encounter Date: 05/07/2022 Problems Name Problem SNOMED Code Status Onset Date Resolution Date Notes Provider Name and Address Organization Details Recorded Time Depressive disorder 54938105 Active 2022 Christy Morse null, [place] - [facility] 3 15:08:17 Migraine 27956204 Active 2022 Christy Rama null, PA - [facility] 3 15:08:22 Anxiety 05194232 Active 2022 Christy Rama null, PA - [facility] 3 15:08:27 Neuralgia 39773208 Active 2022 Christy Rama null, PA - [facility] 3 15:08:45 Hyperlipidemia 01681546 Active 2022 Christy Rama null, PA - [...] Updated DateTime 3 165.1 cm 30 kg/m2 31696.6 3 g 99 % 99 % 10 98 /min 20 /min 98.1 [degF] 116 mm[Hg] 78 mm[Hg] Christy Ontiveros [employer] [facility] 3 15:11:40 Date Recorded Body height Body mass index (BMI) Body weight Pain severity - 0-10 verbal numeric rating [Score] - Reported Oxygen saturation Oxygen saturation in Arterial blood by Pulse oximetry Heart rate Respiratory rate Body temperature Systolic blood pressure Diastolic blood pressure Provider Name and Address Organization Details Last Updated DateTime 3 165.1 cm 30 kg/m2 36081.6 3 g 9 100 % 100 % 104 /min 18 /min 98.1 [degF] 127 mm[Hg] 79 mm[Hg] Mollylatasha Salamancaannika RI [employer] [facility] 3 09:28:21 Social History Question Answer Notes LastModified by [employer] ion Details LastModified Time Tobacco Smoking Status Former Smoker Christy gu [email or web address] [facility] 04/30/2022 15:10:10 What Is Your Level Of Alcohol Consumption? None Information not available 04/30/2022 When Did You Quit Smoking? [facility] Information not available 04/30/2022 Have You [...] SNOMED-CT Code Diagnosis ICD10 Code Diagnosis Note [id number] CHIVO DERAS MD _[facility] [address] [address] 04/30/2022 10:46:51 04/30/2022 16:55:38 Spasm of back muscles 468760774 M62.830 MUSCU LOSKELETAL PAIN can be managed [...] appointmen t within the next 2 weeks. [id number] Cristian Trujillo DO _[facility] [address] [place] [address] 05/07/2022 08:21:34 05/07/2022 10:24:41 Low back pain 960560048 M54.50 Likely muscular originReco mmend c/w muscle relaxerTop ical analgesicD /w [facility] potential adverse side [...] Member ID Guarantor Name 04/30/2022 1 MEDICARE B-ME: [facility] [employer] Elenita Douglas [id number] 0 Elenita Douglas 05/07/2022 1 MEDICARE B-ME: [facility] Elenita Douglas [id number] 0 Elenita Douglas Notes Date Note Type [...] they stated was fine. She states her etl analyst developer told her not to take NSAIDS for pain. She says she gets too hyper when she takes prednisone. CHIVO DERAS MD [address] [place], [address], [place] - [facility] 04/30/2022 17:01:44 05/07/2022 [...] Trujillo, DO [address] [place], [address], [place] PA - [facility] 05/07/2022 10:38:57 OBGyn Episode No OBEpisode recorded.
--- OUTSIDE RECORDS SUMMARY | 2024-04-24 10:09 | XMS_ITS | Clinical Summary ---
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 Limit the use of wwmn-ocb-kbvmzji and prescription pain medications to 2 - [...] preservative (Fluzone; Afluria) 6mo and older 01/18/2016 [employer] SARS-CoV-2 COVID -19, vector-nr, rS-Ad26, preservative free [...] TONSILLECTOMY ADENOIDECTOMY, BILATERAL MYRINGOTOMY AND TUBES PROCEDURE: SD TONSILLECTOMY & ADENOIDECTOMY <AGE 12 OTHER SURGICAL HISTORY PROCEDURE: SD ARTHRS KNEE W/MENISCECTOMY MED&LAT W/SHAVING; COMMENT: left side OTHER SURGICAL HISTORY PROCEDURE: SD DILATION & CURETTAGE DX&/THER NONOBSTETRIC; COMMENT: 3 [...] this topic Medical Devices Implanted Type Area Compounder Device Identifier Shelf Expiration Date Model / [...] LAB CHEMISTRY METHOD 02/02/2022 8:51 AM EST [facility] Potassium 3.1(L) 3.5 - 5.1 mmol/L LAB CHEMISTRY METHOD 02/02/2022 8:51 AM EST [facility] Chloride 114(H) 98 - 107 mmol/L LAB CHEMISTRY METHOD 02/02/2022 8:51 AM [facility] CO2 21 21 - 32 mmol/L LAB CHEMISTRY METHOD 02/02/2022 8:51 AM [facility] Anion Gap 8 3 - 11 LAB CHEMISTRY METHOD 02/02/2022 8:51 AM [facility] Glucose 104(H) 70 - 99 mg/dL LAB CHEMISTRY METHOD 02/02/2022 8:51 AM [facility] BUN 10 7 - 18 mg/dL LAB CHEMISTRY METHOD 02/02/2022 8:51 AM [facility] Creatinine 0.80 0.55 - 1.02 mg/dL LAB CHEMISTRY METHOD 02/02/2022 8:51 AM [facility] eGFR 90 >=60 mL/min/1. 73m2 LAB CHEMISTRY METHOD 02/02/2022 8:51 AM [facility] Comment: The MDRD GFR formula is valid only for adults between ages 18 and 70. Effective November 21, 2021, calculation based on the??Chronic Kidney Disease Epidemiology Collaboration (CKD-EPI) equation refit??without adjustment for race. BUN/Creatinine Ratio 12.5 12.0 - 20.0 LAB CHEMISTRY METHOD 02/02/2022 8:51 AM [facility] Calcium 9.0 8.5 - 10.1 mg/dL LAB CHEMISTRY METHOD 02/02/2022 8:51 AM [facility] AST (SGOT) 12(L) 15 - 37 unit/L LAB CHEMISTRY METHOD 02/02/2022 8:51 AM [facility] ALT (SGPT) 17 13 - 56 unit/L LAB CHEMISTRY METHOD 02/02/2022 8:51 AM [facility] Alkaline Phosphatase 72 42 - 98 unit/L LAB CHEMISTRY METHOD 02/02/2022 8:51 AM [facility] Total Protein 7.0 6.4 - 8.2 g/dL LAB CHEMISTRY METHOD 02/02/2022 8:51 AM EST [facility] Albumin 3.8 3.4 - 5.0 g/dL LAB CHEMISTRY METHOD 02/02/2022 8:51 AM [facility] Total Bilirubin 0.6 0.2 - 1.0 mg/dL LAB CHEMISTRY METHOD 02/02/2022 8:51 AM [facility] Blood Venous blood specimen / Unknown Venipuncture / Unknown 02/02/2022 7:58 AM EST 02/02/2022 8:04 AM EST us Adonis Zafar DO LAB BLOOD ORDERABLES Final Res ult [facility] [address] [place] [address] * HIV 1, HIV 2 antibody screen, P24 antigen with reflex to differentiation (10/26/2021 2:27 PM EDT) HIV Combo AB/AG Negative/ Nonreacti ve Negative/ Nonreacti ve LAB CHEMISTRY METHOD 10/27/2021 5:14 PM EDT [facility] Blood Venous blood specimen / Unknown Venipuncture / Unknown 10/26/2021 2:27 PM EDT 10/26/2021 2:27 PM EDT Narrative [facility] - 10/27/2021 5:14 PM EDT [...] 5. Only REACTIVE results are reported to [facility]. 6. REACTIVE results will be sent to our Reference Laboratory for HIV-1 AB, HIV-2 AB differentiation, and HIV-1 RNA detection by Trading Assistant-Mediated Amplification (TMA) and if positive, quantitation by Real-Time PCR. us Gale Howard NP LAB BLOOD ORDERABLES Final Res ult [facility] [address] [place] [address] * Hepatitis panel, acute (10/26/2021 2:27 PM [...] AM EDT Performed at: ??01 - [facility] [address] ??[id number] [employer] Cupid Analyst: Yahir Moss MD, Phone: ??[phone] us Gale Howard NP LAB BLOOD ORDERABLES Final Res ult [facility] * (ABNORMAL) Lipid panel (10/26/2021 2:27 PM EDT) Cholesterol 153 <200 mg/dL LAB CHEMISTRY METHOD 10/26/2021 4:57 PM EDT [facility] Triglycerides 157(H) <150 mg/dL LAB CHEMISTRY METHOD 10/26/2021 4:57 PM EDT [facility] HDL 49(L) >59 mg/dL LAB CHEMISTRY METHOD 10/26/2021 4:57 PM EDT [facility] Comment: <35 mg/dl is the cut-point for increased Coronary Heart Disease (CHD) risk. LDL Calculated 73 0 - 99 mg/dL LAB CHEMISTRY METHOD 10/26/2021 4:57 PM EDT [facility] VLDL Cholesterol Francisco 31.4(H) <=30 mg/dL LAB CHEMISTRY METHOD 10/26/2021 4:57 PM EDT [facility] Blood Venous blood specimen / Unknown Venipuncture / Unknown 10/26/2021 2:27 PM EDT 10/26/2021 2:27 PM EDT Gale Howard RATINGS ANALYST LAB BLOOD ORDERABLES Final Res ult [facility] [address] [place] [address] * Cervical Cancer Screening: HPV (12/02/2019) Pathologist [...] currently active code status orders. Care Teams Ortho Assistant Relationship Specialty Start Date End Date Physician, No Pcp PCP - General 02/02/22
== END 2024-04-24 10:36 | disposition home or self-care (01) ==
LOC: HO.HMCC 09:20
PROVIDERS: PCP Internal Medicine; Visit Provider Internal Medicine
DX: Z00.01 Encounter for general adult medical examination with abnormal findings (principal); R73.01 Impaired fasting glucose; F33.41 Major depressive disorder, recurrent, in partial remission; F11.20 Opioid dependence, uncomplicated; G58.8 Other specified mononeuropathies; F41.1 Generalized anxiety disorder; I25.10 Atherosclerotic heart disease of native coronary artery without angina pectoris; E78.9 Disorder of lipoprotein metabolism, unspecified; N39.46 Mixed incontinence; M54.6 Pain in thoracic spine; G89.29 Other chronic pain; F42.8 Other obsessive-compulsive disorder

== ENCOUNTER 2024-04-24 09:19 | Outpatient (REF) | payer MEDICARE, MEDICAID, SELFPAY ==
[2024-04-24 14:22] LABS: Amphetamine Screen Urine Not Detected (Not Detect); Barbiturates, Urine Not Detected (Not Detect); Benzodiazepines Screen Urine Not Detected (Not Detect); Buprenorphine Scr Not Detected (Not Detect); Cannabinoid Screen Urine Not Detected (Not Detect); Cocaine Screen Urine Not Detected (Not Detect); Fentanyl, urine Not Detected (Not Detect); Methadone Screen, Urine Not Detected (Not Detect); Opiate Screen Urine Not Detected (Not Detect); Oxycodone Screen Urine Not Detected (Not Detect); Phencyclidine Screen Urine Not Detected (Not Detect)
--- OUTSIDE RECORDS SUMMARY | 2024-04-24 16:05 | XMS_ITS | Encounter Summary ---
Author Organization [place] [address] Care Team Providers Care Industrial Tech Instructor Name Role Phone Frank Edmonds MD Primary Care Provider Encounter Details Date Type Department Care Team (Late st Contact Info) Description 06/15/2020 2:06 PM EDT Hospital Encounter [facility] [address] [place] [phone] Darinel Sanchez MD [address] [place] [address] Social History Tobacco Use Types [...] on filedocumented in this encounter Care Teams Industrial Tech Instructor Relationship Specialty Start Date End Date Frank Edmonds MD [address] [phone] PCP - General 05/20/20 10/25/21 documented as of this encounter
--- OUTSIDE RECORDS SUMMARY | 2024-04-24 16:05 | XMS_ITS | Clinical Summary ---
Author Organization [facility] Address [address] [place] [address] Phone Care Team Providers Care Fibre Optics Jointer Name Role Phone Physician, No Pcp Primary [...] coronary intervention Coronary artery disease invo lving united [place] heart without angina pectoris 11/19/2020 Assessment & [...] (10/12/2020): Added automatically from request for surgery [id number] Assessment & Plan (10/12/2020 3:40 PM EDT): [...] your next appointment. Limit the use of xnun-hxe-argzcoz and prescription pain medications to 2 - [...] preservative (Fluzone; Afluria) 6mo and older 01/18/2016 [employer] SARS-CoV-2 COVID -19, vector-nr, rS-Ad26, preservative free [...] TONSILLECTOMY ADENOIDECTOMY, BILATERAL MYRINGOTOMY AND TUBES PROCEDURE: [place] TONSILLECTOMY & ADENOIDECTOMY <AGE 12 OTHER SURGICAL HISTORY PROCEDURE: [place] ARTHRS KNEE W/MENISCECTOMY MED&LAT W/SHAVING; COMMENT: left side OTHER SURGICAL HISTORY PROCEDURE: [place] DILATION & CURETTAGE DX&/THER NONOBSTETRIC; COMMENT: 3 [...] money to get more. Never true 10/14/2020 [facility] Answer Date Re corded How [...] this topic Medical Devices Implanted Type Area Neighborhood Conservation Officer Device Identifier Shelf Expiration Date Model / [...] LAB CHEMISTRY METHOD 02/02/2022 8:[address] [facility] Potassium 3.1(L) 3.5 - 5.1 mmol/L LAB CHEMISTRY METHOD 02/02/2022 8:[address] [facility] Chloride 114(H) 98 - 107 mmol/L [...] LAB CHEMISTRY METHOD 02/02/2022 8:[address] [facility] Albumin 3.8 3.4 - 5.0 g/dL LAB CHEMISTRY METHOD 02/02/2022 8:[address] [facility] Total Bilirubin 0.6 0.2 - 1.0 mg/dL LAB CHEMISTRY METHOD 02/02/2022 8:[address] [facility] Blood Venous blood specimen / Unknown Venipuncture / Unknown 02/02/2022 7:58 AM EST 02/02/2022 8:04 AM EST us Adonis Zafar DO LAB BLOOD ORDERABLES Final Res ult [facility] [address] [place] [address] * HIV 1, HIV 2 antibody screen, P24 antigen with reflex to differentiation (10/26/2021 2:27 PM EDT) HIV Combo AB/AG Negative/ Nonreacti ve Negative/ Nonreacti ve LAB CHEMISTRY METHOD 10/27/2021 5:14 PM EDT [facility] Blood Venous blood specimen / Unknown Venipuncture / Unknown 10/26/2021 2:27 PM EDT 10/26/2021 2:27 PM EDT Narrative [facility] - 10/27/2021 5:14 PM [...] 5. Only REACTIVE results are reported to [facility]. 6. REACTIVE results will be sent to our Reference Laboratory for HIV-1 AB, HIV-2 AB differentiation, and HIV-1 RNA detection by Spa Director-Mediated Amplification (TMA) and if positive, quantitation by Real-Time PCR. us Gale Howard NP LAB BLOOD ORDERABLES Final Res ult [facility] [address] [place] [address] * Hepatitis panel, acute (10/26/2021 2:27 PM [...] AM EDT Performed at: ??01 - [facility] [address] ??[id number] Concrete Mixing Plant Laborer: Yahir Moss MD, Phone: ??[phone] us Gale Howard NP LAB BLOOD ORDERABLES Final Res ult [facility] * (ABNORMAL) Lipid panel (10/26/2021 2:27 PM EDT) Cholesterol 153 <200 mg/dL LAB CHEMISTRY METHOD 10/26/2021 4:57 PM EDT [facility] Triglycerides 157(H) <150 mg/dL LAB CHEMISTRY METHOD 10/26/2021 4:[address] [facility] HDL 49(L) >59 mg/dL LAB CHEMISTRY METHOD 10/26/2021 4:[address] [facility] Comment: <35 mg/dl is the cut-point for increased Coronary Heart Disease (CHD) risk. LDL Calculated 73 0 - 99 mg/dL LAB CHEMISTRY METHOD 10/26/2021 4:[address] [facility] VLDL Cholesterol Francisco 31.4(H) <=30 mg/dL LAB CHEMISTRY METHOD 10/26/2021 4:[address] [facility] Blood Venous blood specimen / Unknown Venipuncture / Unknown 10/26/2021 2:27 PM EDT 10/26/2021 2:27 PM EDT Gale Howard MUSIC ENGINEER LAB BLOOD ORDERABLES Final Res ult [facility] [address] [place] [address] * Cervical Cancer Screening: HPV (12/02/2019) Pathologist [facility] Cervical Cancer Screening: HPV abstracted Historical [...] currently active code status orders. Care Teams Fibre Optics Jointer Relationship Specialty Start Date End Date Physician, No Pcp PCP - General 02/02/22
--- OUTSIDE RECORDS SUMMARY | 2024-04-24 16:05 | XMS_ITS | Encounter Summary ---
Author Organization [place] [address] Care Team Providers Care Tourist Information Assistant Name Role Phone Unavailable Primary Care Provider Unavailabl e Encounter Details Date Type Department Care Team (Latest Contact Info) Description 01/23/2020 Hospital Encounter TH HISTORIC ENCOUNTERS EASTERN CONVERSION ONLY Ruiz Simon PA [address] [place] [address] Other diseases of larynx Social History Tobacco [...] Associated Diagnosis Comments CT NECK W/CONT OP (31739) Routine 01/23/2020 8:49 AM EST documented in this encounter Results * CT NECK W/CONT OP (46600) (01/23/2020 8:49 AM EST) Anatomical Region Laterality Modality Computed Tomogra phy 01/23/2020 8:26 AM EST Narrative 01/23/2020 8:49 AM EST EXAMINATION: [phone] - CT NECK W/CONTRAST WORKING DIAGNOSIS: ?? [...] Note Lavon Bartlett MD - 04/16/2020 EXAMINATION: [phone] - CT NECK W/CONTRAST WORKING DIAGNOSIS: chest [...]
--- OUTSIDE RECORDS SUMMARY | 2024-04-24 16:05 | XMS_ITS | Encounter Summary ---
Author Organization [place] [address] Care Team Providers Care Life Enrichment Specialist Name Role Phone Frank Edmonds MD Primary Care Provider Encounter Details Date Type Department Care Team (Late st Contact Info) Description 06/11/2020 10:20 AM EDT Hospital Encounter [facility] [address] [facility] 2[address] [place] [phone] Thaddues De Anda MD [address] [place] [address] Social History Tobacco Use Types Packs/Day Years [...] on filedocumented in this encounter Care Teams Life Enrichment Specialist Relationship Specialty Start Date End Date Frank Edmonds MD [address] [phone] PCP - General 05/20/20 10/25/21 documented as of this encounter
--- OUTSIDE RECORDS SUMMARY | 2024-04-24 16:05 | XMS_ITS | Encounter Summary ---
Author Organization [place] [address] Care Team Providers Care Slag Production Worker Name Role Phone Unavailable Primary Care Provider Unavailabl e Encounter Details Date Type Department Care Team (Late st Contact Info) Description 12/11/2019 Hospital Encounter TH HISTORIC ENCOUNTERS EASTERN CONVERSION ONLY Selma Ace MD [address] [place] [address] Palpitations Social History Tobacco Use Types Packs/Day [...] encounter Results * Myocard Perf Spect Multiple [id number] [facility] (12/11/2019 8:45 PM EDT) Anatomical Region Laterality Modality Other 12/11/2019 9:02 AM EDT Narrative 12/11/2019 8:45 PM EDT [facility] in Cardiology [address] [place], [place] ??[address] [employer] Stress Nuclear SPECT Report Name: ??TEJA DOUGLAS ?Exam Date: 12/11/2019 09:02 ?? Ordering Phys: SELMA ACE ?: ? 1970 ? Referring Phys:SELMA ACE Age: 49 ? Gender: F ? Ht (in):65 ??Wt (lb):163 BSA ??1.84 ?Technologist: ??JAM Procedure CPT: ?? 67512 Indications: ? Other chest pain ICD Codes: ? R07.89 Cardiac History: palpitations [facility] Appropriateness Criteria: Cardiac Medications: ?pravastatin, [...] intravenously at rest. Resting SPECT images were ? minutes past injection. Post Stress Imagin.9 ??mCi of Tc-99m Sestamibi was injected intravenously at peak pharmacological stress. Post Stress SPECT images were ysmcrkxt36 ?minutes past tracer injection. Technical Quality: ?? [...] Procedure Note Historical, Cardiovascular Results, - 07/08/2020 [facility] in Cardiology [address] [place] [address] [employer]adenoson Stress Nuclear SPECT Report Name: TEJA DOUGLAS Exam Date: 12/11/2019 09:02Ordering Phys: SELMA ACE : 1970Referring Phys:SELMA ACE Age: 49 Gender: F Ht (in):67 Wt (lb):163 BSA 1.84Technologist: FRANKIE Procedure CPT: 73278 Indications: Other chest pain ICD Codes: R07.89 Cardiac History: palpitations [facility] Appropriateness Criteria: Cardiac Medications: [...] injectedintravenously at rest. Resting SPECT images were admmxqij35 minutes past injection. Post Stress Imagin.9 mCi of Tc-99m Sestamibi was injectedintravenously at peak pharmacological stress. Post Stress SPECT images were wtxfjavd57 minutes past tracerinjection. Technical Quality: Technically adequate [...]
--- OUTSIDE RECORDS SUMMARY | 2024-04-24 16:05 | XMS_ITS | Encounter Summary ---
Author [place] [address] Care Team Providers Care Etched Circuit Processor Name Role Phone Unavailable Primary Care Provider Unavailabl e Encounter Details Date Type Department Care Team (Late st Contact Info) Description 11/25/2019 Hospital Encounter TH HISTORIC ENCOUNTERS EASTERN CONVERSION ONLY Selma Ace MD [address] [place] [address] Other chest pain Social History Tobacco Use [...] this encounter Results * TTE W/Doppler Complete [id number] [facility] (11/26/2019 10:09 AM EDT) Anatomical Region Laterality Modality Other 11/25/2019 8:17 AM EDT Narrative 11/26/2019 10:09 AM EDT [facility] [address] [address] [place], [place] ??[address] Transthoracic Echocardiogram Report Name: ?? WEIR, TEJA ?Exam Date: ?? 11/25/2019 08:17 ?? Ordering Physician:SELMA ACE Age: ?49 ? Gender: ??F ? Ht (in):65 ?Wt (lb): 168 ?Referring Physician:SHIRLEY WOLF ?BSA: ?? 1.87 ? Manager Civil: ? DAM : ?1970 ?BP (mmHg): ??108 ?/ 70 Exam Location: [facility] Type of Exam: Adult CPT's: ?02049 Clinical Indications:OTHER CHEST PAIN / LIGHTHEADED / [...] Procedure Note Historical, Cardiovascular Results, - 07/08/2020 [facility] [address] [place] [address] Transthoracic Echocardiogram Report Name: TEJA DOUGLAS Exam Date: 11/25/2019 08:17Ordering Physician:SELMA ACE Age: 49 Gender: F Ht (in):65 Wt (lb): 168Referring Physician:SHIRLEY WOLF BSA: 1.87Sonographer: TREVOR : 1970 BP (mmHg): 108 / 70 Exam Location: [facility] Type of Exam: Adult CPT's: 01168 Clinical Indications:OTHER CHEST PAIN / LIGHTHEADED / [...] E to A Ratio 1.85 TR Peak Pjumbkaf669.00 cm/ MV Deceleration Time 153.54 ms TR Peak Nohjqhqh72.28 mmHg Cullen Nelson MD, [facility] (Electronically Signed) Final Date: 26 November 2019 10:08 us Cardiovascular Results Historical CV HISTORIC AL CONV PROCEDURES Final Result * Stress Test Cardiac Tracing [id number] [facility] (11/25/2019 7:37 PM EDT) Anatomical Region Laterality Modality Other 11/25/2019 9:09 AM EDT Narrative 11/25/2019 7:37 PM EDT [facility] [address] [address] [place], [place] ??[address] Stress Test Report Name: ??CARLOS TEJA ? Exam Date: 11/25/2019 09:09 ?Ordering Phys: SELMA ACE ?Exam Location: [facility] ? Referring Phys:SHIRLEY WOLF Age: 49 ? Gender: F ? Ht (in):65 ??Wt (lb):163 BSA ??1.84 ?Technologist: ??debo, rn : ?1970 Procedure CPT: ?? 66807 Indications: ? Other chest pain, Palpitations, Other [...] ??/86 ?% MPHR: ?? 77 ? Double Product:31181 BP Response: ? Normal blood pressure response [...] Note Historical, Cardiovascular Results, MD - 07/08/2020 [facility] [place] [address] Stress Test Report Name: TEJA DOUGLAS Exam Date: 11/25/2019 09:09Ordering Phys: SELMA ACE Exam Location[facility]erring Phys:SHIRLEY LUCIANO Age: 49 Gender: F Ht (in):65 Wt (lb):163 BSA 1.84Technologist: anny edmondson : 1970 Procedure CPT: 16217 Indications: Other chest pain, Palpitations, Other forms of dyspnea,Bradycardia, unspecified ICD-9 Codes: R07.89 R00.2 R06.09 R00.1 Patient History: chest pain, dyspnea, palpitations Medications: propanolol, pravastatin STRESS TEST Ovi Protocol Exercise Duration(min:sec):6:00 METS: 7.0 mets Resting HR (bpm):79 Resting BP (mmHg): 132 /78 MPHR: 147Target HR: 7499 Peak HR (bpm): 134 Peak BP (mmHg): 152 /86 % MPHR: 77Double Product:42437 BP Response: Normal blood pressure response during [...]
== END 2024-04-24 09:20 | disposition home or self-care (01) ==
LOC: HO.HMGCLNP 09:19
PROVIDERS: PCP Internal Medicine; Visit Provider Internal Medicine
DX: Z00.01 Encounter for general adult medical examination with abnormal findings (principal); M54.6 Pain in thoracic spine; G89.29 Other chronic pain; F11.20 Opioid dependence, uncomplicated; R73.01 Impaired fasting glucose; G58.8 Other specified mononeuropathies; F33.41 Major depressive disorder, recurrent, in partial remission; F41.1 Generalized anxiety disorder; I25.10 Atherosclerotic heart disease of native coronary artery without angina pectoris; E78.9 Disorder of lipoprotein metabolism, unspecified; N39.46 Mixed incontinence; F42.8 Other obsessive-compulsive disorder; R11.0 Nausea; R63.4 Abnormal weight loss
CPT/HCPCS: 80307; 99212; 99396

== ENCOUNTER 2024-05-23 08:51 | Outpatient (AMB) | payer MEDICARE, MEDICAID, SELFPAY ==
--- NOTE | 2024-05-23 08:47 | A.OFFPC_ITS ---
Intake Visit Reasons: Med Review Allergies cefazolin [From [facility]] Allergy (Mild, Verified 04/24/24 09:25) Swelling Medication List - Last Reconciled 05/23/24 by Ciro White MD atorvastatin 80 mg PO QPM clopidogrel 75 mg PO DAILY cyclobenzaprine 5 mg PO Q8H PRN magnesium oxide 400 mg PO DAILY omeprazole 20 mg PO DAILY ondansetron HCl 4 mg PO ONCE PRN 90 days oxycodone 5 mg PO Q8H PRN 30 days paroxetine HCl 20 mg PO DAILY potassium chloride ER 10 mEq PO DAILY solifenacin 10 mg PO DAILY Tobacco use date assessed: 04/24/24 Dental Screening Dental Screen Date: 04/24/24 HPI Med Review HPI Details History - The patient is a 54-year-old female pr esenting with a discussion on her recent negative urine drug screen and its implications on her controlled pain medication regimen. - Regularly prescribed narcotic medicati on for pain, dosed as needed, though was surprised by urine test result indicating absence of medication. - Admitted to non-consistent medication use, missing a few days leading to negative urine drug screen result. - Receives 90 tablets a month, but repor ts varied pain levels affecting usage, and some days does not take medication. - Patient felt confused about medication usage expectations; had not communicated non-daily usage prior to the drug test. - Follow-up of past referrals to gastroe nterology, neurology, and cardiology noted Patient is under pain contract Problem List - Negative Urine Drug Screen (with previ ously indicated medication) - Regular Pain Medication Rx being fille d 90 tabs q month, how ever not taking it three times a day - Referral for Gastroenterology - Referral for Neurology - Referral for Cardiology - Inquiry about Incontinence Products Co verage, for that we need her previous Urology consultation notes Patient Instructions - Reduce the dosage of pain medication t o 60 tablets per month. - Continue taking the medication and co mmunicate usage habits regularly during visits. - Expect random drug screenings as part of the medication management program. - Stay in communication with specialists for upcoming appointments. - Consider following up with urology to assess incontinence for potential product coverage consultation and documenting effectiveness of treatments tried so far. 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) Surgical History Hx of dilation and curettage Hx of knee surgery Hx of tonsillectomy Family History Father Heart attack Hypertension Mother Hypertension Social History Household Members Other:: mom Housing: Condominium Alcohol intake: never Patient Tobacco Use Status: Current everyday Tobacco user Tobacco use type: Cigarette Years Smoked: 32 years e-Cigarette/Vaping Use: Never Used Second Hand Smoke Exposure: No service: No Current occupational status: disabled Current occupational exposures/hazards: No Sexual orientation: Straight/Heterosexual Gender identity: Female Cognitive needs: No Hearing needs: No Vision needs: Yes Questionnaire Thrive Questionnaire Date Thrive assessed: 02/28/24 I am a: Patient What is your living situation today?: I have a steady place to live Within the past 12 months, did the food you bought not last and you didn't have the money to get more?: I choose not to answer this question Within the past 12 months, did you worry whether your food would run out before you got money to buy more?: Never true Do you have trouble paying for medicines?: No Do you have trouble getting transportation to medical appointments?: No Do you have trouble paying your heating and electricity bill?: No Do you have trouble taking care of your child, family member or friend?: No Do you have trouble with day-to-day activities such as bathing, preparing meals, shopping, managing finances, etc.?: No Are you currently unemployed and looking for a job?: No Are you interested in more education?: No Please select the resources that you would like help with: None Currently or been in a relationship where the following occur: No concerns reported THRIVE Score: 0 FIFI-7 AMB Questionnaire FIFI-7 Date FIFI - 7 assessed: 02/28/24 Source: Developed by Drs. Dallas Keller, Cassie Frankel, Glynn Blackwell and colleagues, with an educational kane from [employer]. Physical exam (Primary Care) Tobacco/Smoking Status: Tobacco use Status Tobacco use date assessed 04/24/24 05/23/24 08:47 Patient Tobacco Use Status Current everyday Tobacco 05/23/24 08:47 Tobacco use type Cigarette 05/23/24 08:47 e-Cigarette/Vaping Use Never Used 05/23/24 08:47 Thrive Assessment: Date of Thrive Assessment Date Thrive assessed 02/28/24 05/23/24 08:47 Currently or been in a relationship where the following occur: No concerns reported Telehealth Telehealth Telehealth Platform: 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 major depressive disorder, in partial remission F33.41 Active/Remission status: in partial remission Anxiety, generalized F41.1 Narcotic dependency, continuous F11.20 Mixed stress and urge urinary incontinence N39.46 Urinary Incontinence type: mixed stress and urge incontinence Chronic primary pain of thoracic region M54.6; G89.29 Other obsessive-compulsive disorders F42.8 Obsessive-compulsive disorder type: other Chronic nausea R11.0 Time Spent (min) 30 Assessment & Plan Assessment & Plan (1) Intercostal neuralgia: Onset Date: Unknown Code(s): G58.8 - Other specified mononeuropathies Category: Medical (2) Major depression, recurrent: Code(s): F33.9 - Major depressive disorder, recurrent, unspecified Category: Medical Qualifiers: Active/Remission status: in partial remission Qualified Code(s): F33.41 - Major depressive disorder, recurrent, in partial remission (3) Anxiety, generalized: Code(s): F41.1 - Generalized anxiety disorder Category: Medical (4) Narcotic dependency, continuous: Code(s): F11.20 - Opioid dependence, uncomplicated Category: Medical (5) Urine incontinence: Comment: Chronic. With microscopic hematuria. Being followed by Urology Code(s): R32 - Unspecified urinary incontinence Category: Medical Qualifiers: Urinary Incontinence type: mixed stress and urge incontinence Qualified Code(s): N39.46 - Mixed incontinence (6) Chronic primary pain of thoracic region: Code(s): M54.6 - Pain in thoracic spine; G89.29 - Other chronic pain Category: Medical (7) Obsessive compulsive disorder: Code(s): F42.9 - Obsessive-compulsive disorder, unspecified Category: Medical Qualifiers: Obsessive-compulsive disorder type: other Qualified Code(s): F42.8 - Other obsessive-compulsive disorder (8) Chronic nausea: Code(s): R11.0 - Nausea Category: Medical Plan History - The patient is a 54-year-old female with Hx of CAD, OCD, Depression, anxiety, chronic Nausea and abdominal cramping presenting with a discussion on her recent negative urine drug screen and its implications on her controlled pain medication regimen. - Regularly prescribed narcotic medication for pain, dosed as needed, though was surprised by urine test result indicating absence of medication. - Admitted to non-consistent medication use, missing a few days leading to negative urine drug screen result. - Receives 90 tablets a month, but reports varied pain levels affecting usage, and some days does not take medication. - Patient felt confused about medication usage expectations; had not communicated non-daily usage prior to the drug test. - Follow-up of past referrals to gastroenterology, neurology, and cardiology noted Patient is under pain contract Problem List - Negative Urine Drug Screen (with previously indicated medication) - Regular Pain Medication Rx being filled 90 tabs q month, how ever not taking it three times a day - Referral for Gastroenterology - Referral for Neurology - Referral for Cardiology - Inquiry about Incontinence Products Coverage, for that we need her previous Urology consultation notes Patient Instructions - Reduce the dosage of pain medication to 60 tablets per month. - Continue taking the medication and communicate usage habits regularly during visits. - Expect random drug screenings as part of the medication management program. - Stay in communication with specialists for upcoming appointments. - Consider following up with urology to assess incontinence for potential product coverage consultation and documenting effectiveness of treatments tried so far. Medications: Changed From oxycodone Partial Fill upon patient request. 5 mg PO Q8H 30 days PRN 90 tabs 0RF pain To oxycodone Partial Fill upon patient request. 5 mg PO BID 60 tabs 0RF pain 30 days
--- OUTSIDE RECORDS SUMMARY | 2024-05-23 09:18 | XMS_ITS | Encounter Summary ---
Author Organization [place] [address] Care Team Providers Care Analytical Research Program Manager Name Role Phone Frank Edmonds MD Primary Care Provider Encounter Details Date Type Department Care Team (Late st Contact Info) Description 06/11/2020 10:20 AM EDT Hospital Encounter [facility] [address] [facility] [address] [place] [id number] Thaddeus De Anda MD [address] [place] [address] Social History Tobacco Use Types Packs/Day Years [...] on filedocumented in this encounter Care Teams Analytical Research Program Manager Relationship Specialty Start Date End Date Frank Edmonds MD [address] [address] PCP - General 05/20/20 10/25/21 documented as of this encounter
--- OUTSIDE RECORDS SUMMARY | 2024-05-23 09:18 | XMS_ITS | Encounter Summary ---
Author [place] [address] Care Team Providers Care Plate Cutter Name Role Phone Frank Edmonds MD Primary Care Provider Encounter Details Date Type Department Care Team (Late st Contact Info) Description 06/15/2020 2:06 PM EDT Hospital Encounter [facility] [address] [place] [phone] Darinel Sanchez MD [address] [place] [address] Social History Tobacco Use Types [...] on filedocumented in this encounter Care Teams Plate Cutter Relationship Specialty Start Date End Date Frank Edmonds MD [address] [place] [phone] PCP - General 05/20/20 10/25/21 documented as of this encounter
--- OUTSIDE RECORDS SUMMARY | 2024-05-23 09:18 | XMS_ITS | Data Portability ---
Author Organization [facility] [id number] Address [address] [place] [address] Assessment No assessment recorded. Plan of Treatment Reminders Order Date Submit Date Provider Last Modified By Organization Details Last Modified Time Details Appointments None recorded. Lab None recorded. Referral orthopedic spine surgeon referral 2022 023 [email or web address] Not available 11:04:13 Procedures None recorded. Surgeries None recorded. Imaging None recorded. Medication Orders Medrol (Philip) 4 mg tablets in a dose pack 2022 023 [id number], [address], [place], [phone], 10:14:12 cyclobenzap rine 10 mg tablet 2022 023 [id number], [address], [place], [phone], 16:54:46 Patient TargetsNo targets recorded. Patient Instructions Encounter Date Encounter Id Patient Instructions Last Modified By Organization Details Last Modified Time 04/30/2022 [id number] getting back to normal after low back pain: care instructions [email or web address] Not available 04/30/2022 16:54:37 05/07/2022 [id number] getting back to normal after low back pain: care instructions [email or web address] Not available 05/07/2022 10:14:04 Reason for Referral Orthopedic Spine Surgeon Ref erral for Low back pain Referring Physician: Cristian Trujillo, Urgent Care, Encounter Date: 05/07/2022 Problems Name Problem SNOMED Code Status Onset Date Resolution Date Notes Provider Name and Address Organization Details Recorded Time Depressive disorder 07222500 Active 2022 Christy Lapeer null, [place] - [facility] 3 15:08:17 Migraine 03868905 Active 2022 Christy Rama null, PA - [facility] 3 15:08:22 Anxiety 05259560 Active 2022 Christy Rama null, [place] - [facility] 3 15:08:27 Neuralgia 15243664 Active 2022 Christy Rama null, PA - [facility] 3 15:08:45 Hyperlipidemia 83580199 Active 2022 Christy Rama null, PA - [...] Updated DateTime 3 165.1 cm 30 kg/m2 09908.6 3 g 99 % 99 % 10 98 /min 20 /min 98.1 [degF] 116 mm[Hg] 78 mm[Hg] Christy Ontiveros [employer] - [facility] 3 15:11:40 Date Recorded Body height Body mass index (BMI) Body weight Pain severity - 0-10 verbal numeric rating [Score] - Reported Oxygen saturation Oxygen saturation in Arterial blood by Pulse oximetry Heart rate Respiratory rate Body temperature Systolic blood pressure Diastolic blood pressure Provider Name and Address Organization Details Last Updated DateTime 3 165.1 cm 30 kg/m2 13794.6 3 g 9 100 % 100 % 104 /min 18 /min 98.1 [degF] 127 mm[Hg] 79 mm[Hg] Mollylatasha [place] [facility] 3 09:28:21 Social History Question Answer Notes LastModified by Ayi Laileizat ion Details LastModified Time Tobacco Smoking Status Former Smoker Christy gu [employer] [facility] 04/30/2022 15:10:10 What Is Your Level Of Alcohol Consumption? None Information not available 04/30/2022 When Did You Quit Smoking? [facility] Information not available 04/30/2022 Have [...] SNOMED-CT Code Diagnosis ICD10 Code Diagnosis Note [id number] CHIVO DERAS MD _[facility] [address] [address] 04/30/2022 10:46:51 04/30/2022 16:55:38 Spasm of back muscles 556641348 M62.830 MUSCU LOSKELETAL PAIN can be managed [...] appointmen t within the next 2 weeks. [id number] Cristian Trujillo DO _[facility] [address] [place] [address] 05/07/2022 08:21:34 05/07/2022 10:24:41 Low back pain 934208016 M54.50 Likely muscular originReco mmend c/w muscle relaxerTop ical analgesicD /w [facility] patient potential adverse [...] Member ID Guarantor Name 04/30/2022 1 MEDICARE B-CO: [facility] [employer] [facility] Elenita Douglas [id number] 0 Elenita Douglas 05/07/2022 1 MEDICARE B-CO: [facility] Elenita Douglas [id number] 0 Elenita Douglas Notes Date Note Type [...] they stated was fine. She states her mercury purifier told her not to take NSAIDS for pain. She says she gets too hyper when she takes prednisone. CHIVO DERAS MD [address] [place], [address], [place] - [facility] 04/30/2022 17:01:44 05/07/2022 [...] Trujillo, DO [address] [place], [address], [place] - [facility] 05/07/2022 10:38:57 OBGyn Episode No OBEpisode recorded.
--- OUTSIDE RECORDS SUMMARY | 2024-05-23 09:18 | XMS_ITS | Encounter Summary ---
Author Organization [facility] [place] [address] Care Team Providers Care Bar Back Name Role Phone Unavailable Primary Care Provider Unavailabl e Encounter Details Date Type Department Care Team (Latest Contact Info) Description 01/23/2020 Hospital Encounter TH HISTORIC ENCOUNTERS EASTERN CONVERSION ONLY Ruiz Simon PA [address] [place] [address] Other diseases of larynx Social History Tobacco [...] Associated Diagnosis Comments CT NECK W/CONT OP (26152) Routine 01/23/2020 8:49 AM EST documented in this encounter Results * CT NECK W/CONT OP ([id number]) (01/23/2020 8:49 AM EST) Anatomical Region Laterality Modality Computed Tomogra phy 01/23/2020 8:26 AM EST Narrative 01/23/2020 8:49 AM EST EXAMINATION: [phone] - CT NECK W/CONTRAST WORKING DIAGNOSIS: ?? [...] Note Lavon Bartlett MD - 04/16/2020 EXAMINATION: [phone] - CT NECK W/CONTRAST WORKING DIAGNOSIS: chest [...]
--- OUTSIDE RECORDS SUMMARY | 2024-05-23 09:19 | XMS_ITS | Clinical Summary ---
Author Organization [facility] Address [address] [place] [address] Phone Care Team Providers Care Ambulance Assistant Name Role Phone Physician, No Pcp [...] Eye exam every 2 years Chronic myelopathy ([facility] V24, [facility] V28) Anxiousness 04/18/2021 History of percutaneous coronary intervention [...] appt in 3 wks NSTEMI (non-ST elevated myoc ardial infarction) ([facility] V24, [facility] V28) 10/11/2020 Overview (10/12/2020): Added automatically from request for surgery [id number] Assessment & Plan (10/12/2020 3:40 PM EDT): - s/p cardiac cath-This is consistent with a nonhemodynamically significant stenosis. -AAC remains on consult -Troponins-0.015-->0.50-->0.651-->0.327 -tele monitor - Cardio requested CTA r/o PE, U/S bilateral lower legs- r/o DVT and ECHO -asa/plavix/toprol/lipitor Severe episode of recurrent major depressive disorder, without psychotic features ([facility] V24, [facility] V28) 08/26/2020 Somatoform disorder, unspecified 07/22/2020 Obsessive-compulsive disorder 07/22/2020 Episode of recurrent major d epressive disorder ([facility] V24) 07/22/2020 Breast neoplasm 04/01/2020 Panic disorder with [...] your next appointment. Limit the use of ahra-uoy-nxiwnpj and prescription pain medications to 2 - [...] urge urinary incontinence 08/23 Borderline personality disorder ([facility] V24, CM S/[facility] V28) 08/22/2016 Temporomandibular joint disorder 08/22/2016 Dislocation of [...] 11/26/2021 Vertigo 05/10/2017 11/18/2020 Chronic obstructive lung dis ease (CMS/HCC V24, CMS/HCC V28) 03/02/2017 11/01/2021 Chronic pelvic pain in female [...] preservative (Fluzone; Afluria) 6mo and older 01/18/2016 [employer] SARS-CoV-2 COVID -19, vector-nr, rS-Ad26, preservative free [...] TONSILLECTOMY ADENOIDECTOMY, BILATERAL MYRINGOTOMY AND TUBES PROCEDURE: NE TONSILLECTOMY & ADENOIDECTOMY <AGE 12 OTHER SURGICAL HISTORY PROCEDURE: NE ARTHRS KNEE W/MENISCECTOMY MED&LAT W/SHAVING; COMMENT: left side OTHER SURGICAL HISTORY PROCEDURE: NE DILATION & CURETTAGE DX&/THER NONOBSTETRIC; COMMENT: 3 [...] 11/29/2021, 11/22/2021, Additional history exists Influenza Vaccine (Season Ended) 2024 11/26/2022, 11/14/2016, 01/18/2016 Cervical Cancer Screening: HPV 12/01/2024 [...] age to complete this topic Meningococcal B Vaccine Aged Out No l onger eligible based on patient's age to complete this topic RSV Immunization Patients Under 20 months Aged Out No longer eligible based on patient's age to complete this topic Varicella Vaccines Aged Out No longer eligible based on patient's age to complete this topic Medical Devices Implanted Type Area Rail Express Clerk Device Identifier Shelf Expiration Date Model / [...] mmol/L LAB CHEMISTRY METHOD 02/02/2022 8:51 AM [facility] Potassium 3.1(L) 3.5 - 5.1 mmol/L LAB CHEMISTRY METHOD 02/02/2022 8:51 AM [facility] Chloride 114(H) 98 - 107 mmol/L LAB CHEMISTRY METHOD 02/02/2022 8:51 AM [facility] CO2 21 21 - 32 mmol/L LAB CHEMISTRY METHOD 02/02/2022 8:51 AM [facility] Anion Gap 8 3 - 11 LAB CHEMISTRY METHOD 02/02/2022 8:51 AM [facility] Glucose 104(H) 70 - 99 mg/dL LAB CHEMISTRY METHOD 02/02/2022 8:51 AM [facility] BUN 10 7 - 18 mg/dL LAB CHEMISTRY METHOD 02/02/2022 8:51 AM [facility] Creatinine 0.80 0.55 - 1.02 mg/dL LAB CHEMISTRY METHOD 02/02/2022 8:51 AM [facility] eGFR 90 >=60 mL/min/1. 73m2 LAB CHEMISTRY METHOD 02/02/2022 8:51 AM [facility] Comment: The MDRD GFR formula is valid only for adults between ages 18 and 70. Effective November 21, 2021, calculation based on the??Chronic Kidney Disease Epidemiology Collaboration (CKD-EPI) equation refit??without adjustment for race. BUN/Creatinine Ratio 12.5 12.0 - 20.0 LAB CHEMISTRY METHOD 02/02/2022 8:51 AM [facility] Calcium 9.0 8.5 - 10.1 mg/dL LAB CHEMISTRY METHOD 02/02/2022 8:51 AM [facility] AST (SGOT) 12(L) 15 - 37 unit/L LAB CHEMISTRY METHOD 02/02/2022 8:51 AM [facility] ALT (SGPT) 17 13 - 56 unit/L LAB CHEMISTRY METHOD 02/02/2022 8:51 AM [facility] Alkaline Phosphatase 72 42 - 98 unit/L LAB CHEMISTRY METHOD 02/02/2022 8:51 AM [facility] Total Protein 7.0 6.4 - 8.2 g/dL LAB CHEMISTRY METHOD 02/02/2022 8:51 AM [facility] Albumin 3.8 3.4 - 5.0 g/dL LAB CHEMISTRY METHOD 02/02/2022 8:51 AM [facility] Total Bilirubin 0.6 0.2 - 1.0 mg/dL LAB CHEMISTRY METHOD 02/02/2022 8:51 AM [facility] Blood Venous blood specimen / Unknown Venipuncture / Unknown 02/02/2022 7:58 AM EST 02/02/2022 8:04 AM EST us Adonis Zafar DO LAB BLOOD ORDERABLES Final Res ult [facility] [address] [place] [address] * HIV 1, HIV 2 antibody screen, P24 antigen with reflex to differentiation (10/26/2021 2:27 PM EDT) HIV Combo AB/AG Negative/ Nonreacti ve Negative/ Nonreacti ve LAB CHEMISTRY METHOD 10/27/2021 5:14 PM EDT [facility] Blood Venous blood specimen / Unknown Venipuncture / Unknown 10/26/2021 2:27 PM EDT 10/26/2021 2:27 PM EDT Narrative [facility] - 10/27/2021 5:14 PM EDT [...] 5. Only REACTIVE results are reported to [facility]. 6. REACTIVE results will be sent to our Reference Laboratory for HIV-1 AB, HIV-2 AB differentiation, and HIV-1 RNA detection by Washcloth Folder-Mediated Amplification (TMA) and if positive, quantitation by Real-Time PCR. Gale Howard NP LAB BLOOD ORDERABLES Final Res ult Performing Organization Address City/[facility]/ZIP Co de Phone Number [facility] [address] [place] [phone] * Hepatitis panel, acute (10/26/2021 2:27 PM EDT) Pathologist [facility] Hep A Ab, IgM Negative Negative 10/28/2021 [...] AM EDT Performed at: ??01 - [facility] [address] ??[id number] Real Estate Associate: Yahir Moss MD, Phone: ??[phone] Gale Howard NP LAB BLOOD ORDERABLES Final Res ult [facility] * (ABNORMAL) Lipid panel (10/26/2021 2:27 PM EDT) Pathologist [facility] Cholesterol 153 <200 mg/dL LAB CHEMISTRY METHOD 10/26/2021 4:57 PM EDT [facility] Triglycerides 157(H) <150 mg/dL LAB CHEMISTRY METHOD 10/26/2021 4:57 PM EDT [facility] HDL 49(L) >59 mg/dL LAB CHEMISTRY METHOD 10/26/2021 4:57 PM EDT [facility] Comment: <35 mg/dl is the cut-point for increased Coronary Heart Disease (CHD) risk. LDL Calculated 73 0 - 99 mg/dL LAB CHEMISTRY METHOD 10/26/2021 4:57 PM EDT [facility] VLDL Cholesterol Francisco 31.4(H) <=30 mg/dL LAB CHEMISTRY METHOD 10/26/2021 4:57 PM EDT [facility] Blood Venous blood specimen / Unknown Venipuncture / Unknown 10/26/2021 2:27 PM EDT 10/26/2021 2:27 PM EDT us Gale Howard NP LAB BLOOD ORDERABLES Final Res ult [facility] [address] [place] [address] * Cervical Cancer Screening: HPV (12/02/2019) Pathologist [facility] Cervical Cancer Screening: HPV abstracted us Historical Provider HEALTH MAINTENANCE Final Result from Last 3 Months or Most Recently Relevant [place] [id number] MEDICARE Advance Directives * Full Code - [...] currently active code status orders. Care Teams Ambulance Assistant Relationship Specialty Start Date End Date Physician, No Pcp PCP - General 02/02/22
--- OUTSIDE RECORDS SUMMARY | 2024-05-23 09:19 | XMS_ITS | Encounter Summary ---
Author Organization [place] [address] Care Team Providers Care Aircraft Manager Name Role Phone Unavailable Primary Care Provider Unavailabl e Encounter Details Date Type Department Care Team (Late st Contact Info) Description 12/11/2019 Hospital Encounter TH HISTORIC ENCOUNTERS EASTERN CONVERSION ONLY Selma Ace MD [address] [place] [address] Palpitations Social History Tobacco Use Types Packs/Day [...] encounter Results * Myocard Perf Spect Multiple [id number] [facility] (12/11/2019 8:45 PM EDT) Anatomical Region Laterality Modality Other 12/11/2019 9:02 AM EDT Narrative 12/11/2019 8:45 PM EDT [facility] Cardiology [address] [place], [place] ??[address] Regadenoson Stress Nuclear SPECT Report Name: ??TEJA DUOGLAS ?Exam Date: 12/11/2019 09:02 ?? Ordering Phys: SELMA ACE ?: ? 1970 ? Referring Phys:SELMA ACE Age: 49 ? Gender: F ? Ht (in):65 ??Wt (lb):163 BSA ??1.84 ?Technologist: ??JAM Procedure CPT: ?? 38700 Indications: ? Other chest pain ICD Codes: ? R07.89 Cardiac History: palpitations [facility] Appropriateness Criteria: Cardiac Medications: ?pravastatin, propranolol er [...] intravenously at rest. Resting SPECT images were ysqsenim94 ? minutes past injection. Post Stress Imagin.9 [...] Procedure Note Historical, Cardiovascular Results, - 07/08/2020 [facility]iology [address] [place] [address] Regadenoson Stress Nuclear SPECT Report Name: TEJA DOUGLAS Exam Date: 12/11/2019 09:02Ordering Phys: SELMA ACE : 1970Referring Phys:SELMA ACE Age: 49 Gender: F Ht (in):65 Wt (lb):163 BSA 1.84Technologist: FRANKIE Procedure CPT: 97644 Indications: Other chest pain ICD Codes: R07.89 Cardiac History: palpitations [facility] Appropriateness Criteria: Cardiac Medications: pravastatin, propranolol er [...] injectedintravenously at rest. Resting SPECT images were fjesqvfp77 minutes past injection. Post Stress Imagin.9 mCi of Tc-99m Sestamibi was injectedintravenously at peak pharmacological stress. Post Stress SPECT images were irdleusd10 minutes past tracerinjection. Technical Quality: Technically adequate [...]
--- OUTSIDE RECORDS SUMMARY | 2024-05-23 09:19 | XMS_ITS | Encounter Summary ---
Author Organization [place] [address] Care Team Providers Care Safety Pin Assembling Machine Operator Name Role Phone Unavailable Primary Care Provider Unavailabl e Encounter Details Date Type Department Care Team (Late st Contact Info) Description 11/25/2019 Hospital Encounter TH HISTORIC ENCOUNTERS EASTERN CONVERSION ONLY Selma Ace MD [address] [place] [address] Other chest pain Social History Tobacco Use [...] this encounter Results * TTE W/Doppler Complete [id number] [facility] (11/26/2019 10:09 AM EDT) Anatomical Region Laterality Modality Other 11/25/2019 8:17 AM EDT Narrative 11/26/2019 10:09 AM EDT [facility] [address] [place], [place] ??[address] Transthoracic Echocardiogram Report Name: ?? WEIR, TEJA ?Exam Date: ?? 11/25/2019 08:17 ?? Ordering Physician:SELMA ACE Age: ?49 ? Gender: ??F ? Ht (in):65 ?Wt (lb): 168 ?Referring Physician:SHIRLEY WOLF ?BSA: ?? 1.87 ? Welder Oxyhydrogen: ? DAM : ?1970 ?BP (mmHg): ??108 ?/ 70 Exam Location: [facility] Type of Exam: Adult CPT's: ?99268 Clinical Indications:OTHER CHEST PAIN / LIGHTHEADED / [...] Procedure Note Historical, Cardiovascular Results, - 07/08/2020 [facility] [address] [place] [address] Transthoracic Echocardiogram Report Name: TEJA DOUGLAS Exam Date: 11/25/2019 08:17Ordering Physician:SELMA ACE Age: 49 Gender: F Ht (in):65 Wt (lb): 168Referring Physician:SHIRLEY WOLF BSA: 1.87Sonographer: TREVOR : 1970 BP (mmHg): 108 / 70 Exam Location: [facility] Type of Exam: Adult CPT's: 11475 Clinical Indications:OTHER CHEST PAIN / LIGHTHEADED / [...] E to A Ratio 1.85 TR Peak Tkqmmnam354.00 cm/ MV Deceleration Time 153.54 ms TR Peak Mrmdogly85.28 mmHg Cullen Nelson MD, [facility] (Electronically Signed) Final Date: 26 November 2019 10:08 us Cardiovascular Results Historical CV HISTORIC AL CONV PROCEDURES Final Result * Stress Test Cardiac Tracing [id number] [facility] (11/25/2019 7:37 PM EDT) Anatomical Region Laterality Modality Other 11/25/2019 9:09 AM EDT Narrative 11/25/2019 7:37 PM EDT [facility] in Cardiology [address] [place], [place] ??[address] Stress Test Report Name: ??CARLOS TEJA ? Exam Date: 11/25/2019 09:09 ?Ordering Phys: SELMA ACE ?Exam Location: [facility] ? Referring Phys:SHIRLEY WOLF Age: 49 ? Gender: F ? Ht (in):65 ??Wt (lb):163 BSA ??1.84 ?Technologist: ??debo, rn : ?1970 Procedure CPT: ?? 37324 Indications: ? Other chest pain, Palpitations, Other [...] ??/86 ?% MPHR: ?? 77 ? Double Product:15777 BP Response: ? Normal blood pressure response [...] Note Historical, Cardiovascular Results, MD - 07/08/2020 [facility] [place] [address] Stress Test Report Name: TEJA DOUGLAS Exam Date: 11/25/2019 09:09Ordering Phys: SELMA ACE Exam Location: [facility] OfficeReferring Phys:SHIRLEY LUCIANO Age: 49 Gender: F Ht (in):65 Wt (lb):163 BSA 1.84Technologist: anny edmondson : 1970 Procedure CPT: 99222 Indications: Other chest pain, Palpitations, Other forms of dyspnea,Bradycardia, unspecified ICD-9 Codes: R07.89 R00.2 R06.09 R00.1 Patient History: chest pain, dyspnea, palpitations Medications: propanolol, pravastatin STRESS TEST Ovi Protocol Exercise Duration(min:sec):6:00 METS: 7.0 mets Resting HR (bpm):79 Resting BP (mmHg): 132 /78 MPHR: 147Target HR: 7499 Peak HR (bpm): 134 Peak BP (mmHg): 152 /86 % MPHR: 77Double Product:60272 BP Response: Normal blood pressure response during [...]
--- OUTSIDE RECORDS SUMMARY | 2024-05-23 09:19 | XMS_ITS | Continuity of Care Document ---
Author Organization [facility] Address [address] [place] [address] Phone Care Team Providers Care Manager Validation Name Role Phone Jennifer BUSH, FACS, FAAOA, [...] a day by oral route. - Active Miralax 17 gram oral powder packet Take 1 packet every day by oral route. - Active isosorbide mononitrate ER 30 mg tablet,extended release 24 hr Take 1 tablet every day by oral route. - Active aspirin [...] 3 DOSES IN 15 MINUTES. - Active prochlorperazine maleate 5 mg tablet [...] Copied on Encounter Office/Outpa tient Visit, Est [facility], [address] [place] [address], [address] [place] [address] , tel:[phone] Rodriguez Lump in throat (chief complaint) sore throat (chief complaint) Mass of epiglottisLaryngop haryngeal reflux (LPR)Dysphagia, unspecified typeAnxietyH/O heart artery stent 1 Rodriguez Katarzyna. [address] [place] [address], [id number], . tel:[phone] Specialist : Milind Finch MD, [address] [place] [address], [address]. tel:[phone] cialist: Miya Armendariz MD, [address] [facility] [address], [place], [address]. tel:[phone] cialist: Woodrow Bullock MD, [address] [place] [address], [address]. [phone] erring Provider: Frank Edmonds MD, Family Medicine [address] [place] [address], [address]. tel:[phone] [facility], [address] [place] [address], [address] [place] [address] , [phone] Flex No Information 1 Flex Romeo. [address] [place] [address], [address] [place] [address], . tel:[phone] Referring Provider: Frank Edmonds MD, Family Medicine [address] [place] [address], [address]. tel:[phone] [facility], [address] [place] [address], [address] [place] [address] , tel:[phone] Aurora No Information 0 No Information Referring Provider: Frank Edmonds MD, Family Medicine [address] [place] [address], [address]. tel:[phone] Office/Outpa tient Visit, [facility], [address] [place] [address], [address] [place] [address] , tel:[phone] Flex Dysphagia follow up (chief complaint) Current smokerDysphagia, unspecified typeAnxietyLaryngo pharyngeal reflux (LPR)Mass of epiglottis 0 Flex Romeo. [address] [place] [address], [id number], . tel:[phone] Specialist : Milind Finch MD, [address] [place] [address], [address]. tel:[phone] cialist: Miya Armendariz MD, [address] [place] [address], [address]. tel:[phone] cialist: Woodrow Bullock MD, [address] [place] [address], [address]. tel:[phone] erring Provider: Frank Edmonds MD, Family Medicine [address] [place] [address], [address]. tel:[phone] [facility], [address] [place] [address], [address] [place] [address] , tel:[phone] Patient Portal No Information 0 Jennifer Colón. [address] [place] [address], [address] [place] [address], . tel:[phone] Office/Outpa tient Visit, [facility], [address] [place] [address], [address] [place] [address] , tel:[phone] Simon Dysphagia (chief complaint) Dysphagia, unspecified typeLaryngopharyng eal reflux (LPR)AnxietyMass of epiglottisCurrent smoker 0 No Yacht Captain : Milind Finch MD, [address] [place] [address], [address]. tel:[phone] cialist: Miya Armendariz MD, [address] [place] [address], [address]. tel:[phone] cialist: Woodrow Bullock MD, [address] [place] [address], [address]. tel:[phone] erring Provider: Frank Edmonds MD, Family Medicine [address] [place] [address], [address]. tel:[phone] Office/Outpa tient Visit, [facility], [address] [place] [address], [id number] , tel:[phone] Setzen Facial pain (chief complaint) Headache around the eyesTMJ derangementDeviate d nasal septumReferred otalgia of both ears Aug-0 3-201 8 Renny Capone. [address] [facility], [place], [place], [id number], . tel:[phone] Specialist : Milind Finch MD, [address] [place], [address]. tel:[phone] cialist: Miya Armendariz, [address] [facility] [address], [place], [address]. tel:[phone] cialist: Woodrow Bullock MD, [address] [facility] [address], [place], [address]. tel:[phone] erring Provider: Frank Edmonds MD, Family Medicine [address] [place] [address], [address]. tel:[phone] Family History Family Member Type Diagnosis Age At Onset Father Problem (finding) Heart disease Payers Payer name Insurance type Covered green party ID Authoriza tion(s) MEDICARE PART B [id number] Social History Type Description Quantity Date Captured [...] sore throat in the AM. She used [place] yesterday with relief. Stilhaving some difficulty swallowing [...] sore throat in the AM. She used [place] yesterday with relief. 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 Additional information: Was in [facility] ER last week - left [...] are variable and intense. She saw an supervisor landscape who told her that her eyes were [...] have a normal upper endoscopy with her veterinary technician several months ago. I will request records [...]
== END 2024-05-23 09:26 | disposition home or self-care (01) ==
LOC: HO.HMCC 08:51
PROVIDERS: PCP Internal Medicine; Visit Provider Internal Medicine
DX: G58.8 Other specified mononeuropathies (principal); F33.41 Major depressive disorder, recurrent, in partial remission; F11.20 Opioid dependence, uncomplicated; F41.1 Generalized anxiety disorder; N39.46 Mixed incontinence; M54.6 Pain in thoracic spine; G89.29 Other chronic pain; F42.8 Other obsessive-compulsive disorder; R11.0 Nausea

== ENCOUNTER → 2024-05-23 08:51 | Outpatient (BNVA) | payer MEDICARE, MEDICAID, SELFPAY | PROVIDERS: PCP Internal Medicine; Visit Provider Internal Medicine ==

== ENCOUNTER 2024-06-17 09:46 | Outpatient (REF) | payer MEDICARE, MEDICAID, SELFPAY ==
--- OUTSIDE RECORDS SUMMARY | 2024-06-17 10:51 | XMS_ITS | Continuity of Care Document ---
Author Organization [facility] Address [address] [place] [address] Phone Care Team Providers Care Education Dean Name Role Phone Jennifer BUSH, FACS, FAAOA, [...] Copied on Encounter Office/Outpa tient Visit, Est [facility], [address] [place] [address], [address] [place] [address] , tel:[phone] Rodriguez Lump in throat (chief complaint) sore throat (chief complaint) Mass of epiglottisLaryngop haryngeal reflux (LPR)Dysphagia, unspecified typeAnxietyH/O heart artery stent 1 Jennifer Gusmana. [address] [place] [address], [id number], . tel:[phone] Specialist : Milind Finch MD, [address] [place] [address], [address]. tel:[phone] cialist: Miya Armendariz MD, [address] [facility] [address], [place], [address]. tel:[phone] cialist: Woodrow Bullock MD, [address] [place] [address], [address]. [phone] erring Provider: Frank Edmonds MD, Family Medicine [address] [place] [address], [address]. tel:[phone] [facility], [address] [place] [address], [address] [place] [address] , tel:[phone] Flex No Information 1 Flex Romeo. [address] [place] [address], [address] [place] [address], . tel:[phone] Referring Provider: Frank Edmonds MD, Family Medicine [address] [place] [address], [address]. tel:[phone] [facility], [address] [place] [address], [address] [place] [address] , tel:[phone] Aurora No Information 0 No Information Referring Provider: Frank Edmonds MD, Family Medicine [address] [place] [address], [address]. tel:[phone] Office/Outpa tient Visit, [facility], [address] [place] [address], [address] [place] [address] , tel:[phone] Flex Dysphagia follow up (chief complaint) Current smokerDysphagia, unspecified typeAnxietyLaryngo pharyngeal reflux (LPR)Mass of epiglottis 0 Flex Romeo. [address] [place] [address], [id number], . tel:[phone] Specialist : Milind Finch MD, [address] [place] [address], [address]. tel:[phone] cialist: Miya Armendariz MD, [address] [place] [address], [address]. tel:[phone] cialist: Woodrow Bullock MD, [address] [place] [address], [address]. tel:[phone] erring Provider: Frank Edmonds MD, Family Medicine [address] [place] [address], [address]. tel:[phone] [facility], [address] [place] [address], [address] [place] [address] , tel:[phone] Patient Portal No Information 0 Jennifer Colón. [address] [place] [address], [address] [place] [address], . tel:[phone] Office/Outpa tient Visit, [facility], [address] [place] [address], [address] [place] [address] , tel:[phone] Simon Dysphagia (chief complaint) Dysphagia, unspecified typeLaryngopharyng eal reflux (LPR)AnxietyMass of epiglottisCurrent smoker 0 No Security Field Supervisor : Milind Finch MD, [address] [place] [address], [address]. tel:[phone] cialist: Miya Armendariz MD, [address] [place] [address], [address]. tel:[phone] cialist: Woodrow Bullock MD, [address] [place] [address], [address]. tel:[phone] erring Provider: Frank Edmonds MD, Family Medicine [address] [place] [address], [address]. tel:[phone] Office/Outpa tient Visit, [facility], [address] [place] [address], [id number] , tel:[phone] Setzen Facial pain (chief complaint) Headache around the eyesTMJ derangementDeviate d nasal septumReferred otalgia of both ears Aug-0 3-201 8 Renny Capone. [address] [facility], [place], [place], [id number], . tel:[phone] Specialist : Milind Finch MD, [address] [place], [address]. tel:[phone] cialist: Miya Armendariz, [address] [facility] [address], [place], [address]. tel:[phone] cialist: Woodrow Bullock MD, [address] [facility] [address], [place], [address]. tel:[phone] erring Provider: Frank Edmonds MD, Family Medicine [address] [place] [address], [address]. tel:[phone] Family History Family Member Type Diagnosis Age At Onset Father Problem (finding) Heart disease Payers Payer name Insurance type Covered democrat ID Authoriza tion(s) MEDICARE PART B [id number] Social History Type Description Quantity Date Captured [...] sore throat in the AM. She used Sterling yesterday with relief. Stilhaving some difficulty swallowing [...] sore throat in the AM. She used Sterling yesterday with relief. 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 Additional information: Was in [facility] ER last week - left [...] are variable and intense. She saw an it service delivery manager who told her that her eyes [...] have a normal upper endoscopy with her television producer several months ago. I will request records [...]
--- OUTSIDE RECORDS SUMMARY | 2024-06-17 10:51 | XMS_ITS | Data Portability ---
Author Organization [facility] [address] Address [address] [place] [address] Assessment No assessment recorded. Plan of Treatment Reminders Order Date Submit Date Provider Last Modified By Organization Details Last Modified Time Details Appointments None recorded. Lab None recorded. Referral orthopedic spine surgeon referral 2022 023 [email or web address] Not available 11:04:13 Procedures None recorded. Surgeries None recorded. Imaging None recorded. Medication Orders Medrol (Philip) 4 mg tablets in a dose pack 2022 023 [id number], [address], [place], [id number], 10:14:12 cyclobenzap rine 10 mg tablet 2022 023 [id number], [address], [place], [id number], 16:54:46 Patient TargetsNo targets recorded. Patient Instructions Encounter Date Encounter Id Patient Instructions Last Modified By Organization Details Last Modified Time 04/30/2022 [id number] getting back to normal after low back pain: care instructions [email or web address] Not available 04/30/2022 16:54:37 05/07/2022 [id number] getting back to normal after low back pain: care instructions [email or web address] Not available 05/07/2022 10:14:04 Reason for Referral Orthopedic Spine Surgeon Ref erral for Low back pain Referring Physician: Critsian Trujillo, Urgent Care, Encounter Date: 05/07/2022 Problems Name Problem SNOMED Code Status Onset Date Resolution Date Notes Provider Name and Address Organization Details Recorded Time Depressive disorder 90654356 Active 2022 Christy Rama null, [place] - [facility] 3 15:08:17 Migraine 22901869 Active 2022 Christy Rio Vista null, PA - [facility] 3 15:08:22 Anxiety 30270923 Active 2022 Christy [place] null, PA - [facility] 3 15:08:27 Neuralgia 22187229 Active 2022 Christy Rama null, PA - [facility] 3 15:08:45 Hyperlipidemia 63003903 Active 2022 Christy Rama null, PA - [facility] 3 15:08:57 Notes:3 heart stents Problem Notes None recorded. Procedures Surgical History Date Name Laterality Status Provider Name and Address Organization Details Recorded Time insertion of arterial stent completed Christy Rio Vista PA - [facility] 04/30/2022 15:10:20 Imaging [...] Updated DateTime 3 165.1 cm 30 kg/m2 12558.6 3 g 99 % 99 % 10 98 /min 20 /min 98.1 [degF] 116 mm[Hg] 78 mm[Hg] Christy Ontiveros [facility] 3 15:11:40 Date Recorded Body height Body mass index (BMI) Body weight Pain severity - 0-10 verbal numeric rating [Score] - Reported Oxygen saturation Oxygen saturation in Arterial blood by Pulse oximetry Heart rate Respiratory rate Body temperature Systolic blood pressure Diastolic blood pressure Provider Name and Address Organization Details Last Updated DateTime 3 165.1 cm 30 kg/m2 31819.6 3 g 9 100 % 100 % 104 /min 18 /min 98.1 [degF] 127 mm[Hg] 79 mm[Hg] Mollylatasha Salamancaannika [place] [facility] 3 09:28:21 Social History Question Answer Notes LastModified by RidePalizat ion Details LastModified Time Tobacco Smoking Status Former Smoker Christy gu [facility] 04/30/2022 15:10:10 What Is Your Level Of Alcohol Consumption? None Information not available 04/30/2022 When Did You Quit Sm[facility]? [facility] Information not available 04/30/2022 Have You Had [...] SNOMED-CT Code Diagnosis ICD10 Code Diagnosis Note [id number] CHIVO DERAS MD _Chi [address] [address] 04/30/2022 10:46:51 04/30/2022 16:55:38 Spasm of back muscles 766743556 M62.830 MUSCU LOSKELETAL PAIN can be managed [...] appointmen t within the next 2 weeks. [id number] Cristian Trujillo DO _[facility] [address] [place] [address] 05/07/2022 08:21:34 05/07/2022 10:24:41 Low back pain 809145059 M54.50 Likely muscular originReco mmend c/w muscle relaxerTop ical analgesicD /w [facility] with patient potential adverse [...] Member ID Guarantor Name 04/30/2022 1 MEDICARE B-IA: [facility] [employer] Elenita Douglas [id number] 0 Elenita Douglas 05/07/2022 1 MEDICARE B-IA: [facility] Elenita Douglas [id number] 0 Elenita Douglas Notes Date Note Type [...] they stated was fine. She states her environmental health manager told her not to take NSAIDS for pain. She says she gets too hyper when she takes prednisone. CHIVO DERAS MD [address] [place], [address], [place] - [facility] 04/30/2022 17:01:44 05/07/2022 [...] Trujillo, DO [address] [place], [address], [place] PA - [facility] 05/07/2022 10:38:57 OBGyn Episode No OBEpisode recorded.
[2024-06-17 13:40] LABS: Anion Gap 17 (12-20); Blood Urea Nitrogen 11 mg/dL (9-16); Calcium 10.3 mg/dL (8.4-10.2); Carbon Dioxide 28 mmol/L (22-29); Chloride 98 mmol/L (96-108); Estimated Glomerular Filt Rate > 60; Glucose Random 127 mg/dL (60-115); Potassium 4.4 mmol/L (3.3-5.1); Sodium 139 mmol/L (135-145)
== END 2024-06-17 09:47 | disposition home or self-care (01) ==
LOC: HO.HMGCLDS 09:46
PROVIDERS: Internal Medicine Hypertension Specialist; PCP Internal Medicine; Visit Provider Internal Medicine
DX: E87.6 Hypokalemia (principal)
CPT/HCPCS: 36415; 80048

== ENCOUNTER 2024-06-18 11:50 | Outpatient (AMB) | payer MEDICARE, MEDICAID, SELFPAY ==
--- NOTE | 2024-06-18 11:53 | HO.NEPHOV ---
Vital Signs 06/18/24 11:53 Height 5 ft 5 in Intake Visit Reasons: FU/ Conf Pt requested Telehealth Assistant Manager/Embalmer Required: No Accompanied by: Self / Same As Patient Allergies cefazolin [From [facility]] Allergy (Mild, Verified 06/19/24 09:23) Swelling Medication List - Last Reconciled 06/18/24 by Demar Tejeda MD atorvastatin 80 mg PO QPM clopidogrel 75 mg PO DAILY omeprazole 20 mg PO DAILY ondansetron HCl 4 mg PO ONCE PRN 90 days oxycodone 5 mg PO BID 30 days solifenacin 10 mg PO DAILY HPI Comments Details: 53-year-old woman referred for hypokalemia. She had history of coronary disease status post stent placement at the age of 49. She has no history of hypertension. She is not on any antihypertensive medications. She is not on any diuretics. On February 06 she was in the emergency room with hypokalemia. At that time she had significant nausea and vomiting along with diarrhea. She was given potassium supplementations and sent home. She also had mild alkalosis at the time. Upon reviewing the labs it appears that she has had hypokalemia since October of 2023. She does not take any bpoh-xed-qyyoduw medications. Does not use any licorice. No history of any use of marijuana. 03/14/2024. Overall she is feeling well. No further vomiting or diarrhea. 04/18/2024. 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) Surgical History Hx of dilation and curettage Hx of knee surgery Hx of tonsillectomy Family History Father Heart attack Hypertension Mother Hypertension Social History Household Members Other:: mom Housing: Condominium Alcohol intake: never Patient Tobacco Use Status: Current everyday Tobacco user Tobacco use type: Cigarette Years Smoked: 32 years e-Cigarette/Vaping Use: Never Used Second Hand Smoke Exposure: No service: No Current occupational status: disabled Current occupational exposures/hazards: No Sexual orientation: Straight/Heterosexual Gender identity: Female Cognitive needs: No Hearing needs: No Vision needs: Yes Telehealth Telehealth Telehealth Platform: Telephone Location of provider rendering services: practice address ([address]) Location of patient: address on file Patient Identification confirmed using: Name, : Yes Telehealth method: voice only Patient verbally consented to treatment: Yes Patient verbally consented to billing insurance company: Yes Patient informed of any privacy concerns related to visit: Yes Minutes spent on Phone/Video with Pt.: 9 Results Reviewed Nephrology Results: Sodium 139 mmol/L (135-145) 06/17/24 Potassium 4.4 mmol/L (3.3-5.1) 06/17/24 Chloride 98 mmol/L (96-108) 06/17/24 Carbon Dioxide 28 mmol/L (22-29) 06/17/24 BUN 11 mg/dL (9-16) 06/17/24 Creatinine 0.67 mg/dL (0.5-1.4) 06/17/24 Calcium 10.3 mg/dL (8.4-10.2) H 06/17/24 Assessment & Plan Assessment & Plan (1) Hypokalemia: Code(s): E87.6 - Hypokalemia Category: Medical (2) Urine incontinence: Comment: Chronic. With microscopic hematuria. Being followed by Urology Code(s): R32 - Unspecified urinary incontinence Category: Medical Qualifiers: Urinary Incontinence type: mixed stress and urge incontinence Qualified Code(s): N39.46 - Mixed incontinence Plan 54-year-old woman with hypokalemia Normotension. Hypokalemia has been documented for the last 3 months. Some episodes were associated with alkalosis. Two years ago she had mild hyperchloremic metabolic acidosis. At the time she did not have hypokalemia. Differential diagnosis would include potassium losses from GI source including nausea and vomiting. Vomiting could have resulted in proton loss leading to metabolic alkalosis. Diuretic abuse should be considered. Recent urine anion gap was positive. However she did not have any diarrhea at this time. Recommendations Keep potassium supplementation at 10 mEq use per day Monitor serum potassium in 3 weeks If she develops hypokalemia after discontinuing potassium supplementation without any diuretics she needs further workup. Although serum aldosterone and plasma renin renin activities were normal this need to be repeated if she develops hypokalemia again. Encouraged her to continue with adequate fluid intake. She should avoid using any diuretics or mnqn-fba-udteyny medications. Coding Level of Care Code Tele Est Pt Level 2 (72486) Diagnoses Hypokalemia E87.6 Mixed stress and urge urinary incontinence N39.46 Urinary Incontinence type: mixed stress and urge incontinence
--- OUTSIDE RECORDS SUMMARY | 2024-06-18 13:25 | XMS_ITS | Encounter Summary ---
Author Organization [employer] [place] [address] Care Team Providers Care Scrubber Operator Name Role Phone Frank Edmonds MD Primary Care Provider Encounter Details Date Type Department Care Team (Late st Contact Info) Description 06/15/2020 2:06 PM EDT Hospital Encounter [facility] [address] [place] [id number] Darinel Sanchez MD [address] [place] [address] Social History Tobacco Use Types [...] money to get more. Never true 10/14/2020 [facility] Answer Date Re corded How [...] on filedocumented in this encounter Care Teams Scrubber Operator Relationship Specialty Start Date End Date Frank Edmonds MD [address] [id number] PCP - General 05/20/20 10/25/21 documented as of this encounter
--- OUTSIDE RECORDS SUMMARY | 2024-06-18 13:25 | XMS_ITS | Continuity of Care Document ---
Author Organization [facility] Address [address] [place] [address] Phone Care Team Providers Care Gas Tester Name Role Phone Jennifer BUSH, FACS, FAAOA, [...] Copied on Encounter Office/Outpa tient Visit, Est [facility], [address] [place] [address], [address] [place] [address] , tel:[phone] Rodriguez Lump in throat (chief complaint) sore throat (chief complaint) Mass of epiglottisLaryngop haryngeal reflux (LPR)Dysphagia, unspecified typeAnxietyH/O heart artery stent 1 Jennifer Gusmana. [address] [place] [address], [id number], . tel:[phone] Specialist : Milind Finch MD, [address] [place] [address], [address]. tel:[phone] cialist: Miya Armendariz MD, [address] [facility] [address], [place], [address]. tel:[phone] cialist: Woodrow Bullock MD, [address] [place] [address], [address]. [phone] erring Provider: Frank Edmonds MD, Family Medicine [address] [place] [address], [address]. tel:[phone] [facility], [address] [place] [address], [address] [place] [address] , tel:[phone] Flex No Information 1 Flex Romeo. [address] [place] [address], [address] [place] [address], . tel:[phone] Referring Provider: Frank Edmonds MD, Family Medicine [address] [place] [address], [address]. tel:[phone] [facility], [address] [place] [address], [address] [place] [address] , tel:[phone] Aurora No Information 0 No Information Referring Provider: Frank Edmonds MD, Family Medicine [address] [place] [address], [address]. tel:[phone] Office/Outpa tient Visit, [facility], [address] [place] [address], [address] [place] [address] , tel:[phone] Flex Dysphagia follow up (chief complaint) Current smokerDysphagia, unspecified typeAnxietyLaryngo pharyngeal reflux (LPR)Mass of epiglottis 0 Flex Romeo. [address] [place] [address], [id number], . tel:[phone] Specialist : Milind Finch MD, [address] [place] [address], [address]. tel:[phone] cialist: Miya Armendariz MD, [address] [place] [address], [address]. tel:[phone] cialist: Woodrow Bullock MD, [address] [place] [address], [address]. tel:[phone] erring Provider: Frank Edmonds MD, Family Medicine [address] [place] [address], [address]. tel:[phone] [facility], [address] [place] [address], [address] [place] [address] , tel:[phone] Patient Portal No Information 0 Jennifer Colón. [address] [place] [address], [address] [place] [address], . tel:[phone] Office/Outpa tient Visit, [facility], [address] [place] [address], [address] [place] [address] , tel:[phone] Simon Dysphagia (chief complaint) Dysphagia, unspecified typeLaryngopharyng eal reflux (LPR)AnxietyMass of epiglottisCurrent smoker 0 No Bulb Grader : Milind Finch MD, [address] [place] [address], [address]. tel:[phone] cialist: Miya Armendariz MD, [address] [place] [address], [address]. tel:[phone] cialist: Woodrow Bullock MD, [address] [place] [address], [address]. tel:[phone] erring Provider: Frank Edmonds MD, Family Medicine [address] [place] [address], [address]. tel:[phone] Office/Outpa tient Visit, [facility], [address] [place] [address], [id number] , tel:[phone] Setzen Facial pain (chief complaint) Headache around the eyesTMJ derangementDeviate d nasal septumReferred otalgia of both ears Aug-0 3-201 8 Renny Capone. [address] [facility], [place], [place], [id number], . tel:[phone] Specialist : Milind Finch MD, [address] [place], [address]. tel:[phone] cialist: Miya Armendariz, [address] [facility] [address], [place], [address]. tel:[phone] cialist: Woodrow Bullock MD, [address] [facility], [place], [address]. tel:[phone] erring Provider: Frank Edmonds MD, Family Medicine [address] [place] [address], [address]. tel:[phone] Family History Family Member Type Diagnosis Age At Onset Father Problem (finding) Heart disease Payers Payer name Insurance type Covered republican ID Authoriza tion(s) MEDICARE PART B [id number] Social History Type Description Quantity Date Captured [...] sore throat in the AM. She used [place] yesterday with relief. Stilhaving some difficulty swallowing [...] sore throat in the AM. She used Gillett yesterday with relief. 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 Additional information: Was in [facility] ER last week - [...] are variable and intense. She saw an spring internship who told her that her eyes were [...] have a normal upper endoscopy with her broadcast chief engineer several months ago. I will request [...]
--- OUTSIDE RECORDS SUMMARY | 2024-06-18 13:26 | XMS_ITS | Data Portability ---
Author Organization [facility] [address] [address] Address [address] [place] [address] Assessment No assessment recorded. Plan of Treatment Reminders Order Date Submit Date Provider Last Modified By Organization Details Last Modified Time Details Appointments None recorded. Lab None recorded. Referral orthopedic spine surgeon referral 2022 023 [email or web address] Not available 11:04:13 Procedures None recorded. Surgeries None recorded. Imaging None recorded. Medication Orders Medrol (Philip) 4 mg tablets in a dose pack 2022 023 [id number], [address] [place], [place], [phone], 10:14:12 cyclobenzap rine 10 mg tablet 2022 023 [id number], [address], [place], [phone], 16:54:46 Patient TargetsNo targets recorded. Patient Instructions Encounter Date Encounter Id Patient Instructions Last Modified By Organization Details Last Modified Time 04/30/2022 [id number] getting back to normal after low back pain: care instructions [email or web address] Not available 04/30/2022 16:54:37 05/07/2022 [id number] getting back to normal after low back pain: care instructions [email or web address] Not available 05/07/2022 10:14:04 Reason for Referral Orthopedic Spine Surgeon Ref erral for Low back pain Referring Physician: Cristian Trujillo, Urgent Care, Encounter Date: 05/07/2022 Problems Name Problem SNOMED Code Status Onset Date Resolution Date Notes Provider Name and Address Organization Details Recorded Time Depressive disorder 97365351 Active 2022 Christy Rama null, PA - [facility] 3 15:08:17 Migraine 39115275 Active 2022 Christy [place] null, PA - [facility] 3 15:08:22 Anxiety 55092130 Active 2022 Christy [place] null, PA - [facility] 3 15:08:27 Neuralgia 17215579 Active 2022 Christy Rama null, PA - [facility] 3 15:08:45 Hyperlipidemia 84382926 Active 2022 Christy Rama null, PA - [facility] 3 15:08:57 Notes:3 heart stents Problem Notes None recorded. Procedures Surgical History Date Name Laterality Status Provider Name and Address Organization Details Recorded Time insertion of arterial stent completed Christy [place] PA - [facility] 04/30/2022 15:10:20 Imaging [...] Updated DateTime 3 165.1 cm 30 kg/m2 90917.6 3 g 99 % 99 % 10 98 /min 20 /min 98.1 [degF] 116 mm[Hg] 78 mm[Hg] Christy Ontiveros [facility] [employer] [facility] 3 15:11:40 Date Recorded Body height Body mass index (BMI) Body weight Pain severity - 0-10 verbal numeric rating [Score] - Reported Oxygen saturation Oxygen saturation in Arterial blood by Pulse oximetry Heart rate Respiratory rate Body temperature Systolic blood pressure Diastolic blood pressure Provider Name and Address Organization Details Last Updated DateTime 3 165.1 cm 30 kg/m2 03750.6 3 g 9 100 % 100 % 104 /min 18 /min 98.1 [degF] 127 mm[Hg] 79 mm[Hg] Mollylatasha Salamancaannika HI [employer] [facility] 3 09:28:21 Social History Question Answer Notes LastModified by Graffitiizat ion Details LastModified Time Tobacco Smoking Status Former Smoker Christy gu [facility] 04/30/2022 15:10:10 What Is Your Level Of Alcohol Consumption? None Information not available 04/30/2022 When Did You Quit Smoking? 1[facility] Information not available 04/30/2022 Have You Had [...] SNOMED-CT Code Diagnosis ICD10 Code Diagnosis Note [id number] [place] [address] [address] 04/30/2022 10:46:51 04/30/2022 16:55:38 Spasm of back muscles 434674864 M62.830 MUSCU LOSKELETAL PAIN can be managed [...] please see your doctor or return to [facility] within one week. If your symptoms become severe or uncontroll ed or if you develop new concerning symptoms please go to the Emergency Department for evaluation and pain control. Call your PCP to schedule a follow up appointmen t within the next 2 weeks. [id number] Cristian Trujillo DO _[facility] [address] [place] [address] 05/07/2022 08:21:34 05/07/2022 10:24:41 Low back pain 837287891 M54.50 Likely muscular originReco mmend c/w muscle relaxerTop ical analgesicD /w her trial [facility] med[facility] potential adverse side [...] ID Guarantor Name 04/30/2022 1 MEDICARE B-[place]: [employer] Elenitahaley Douglas [id number] Elenita Douglas 05/07/2022 1 MEDICARE [place]: [employer] Elenita Jason Douglas [id number] Elenita Douglas Notes Date Note Type [...] they stated was fine. She states her tourist home keeper told her not to take NSAIDS for pain. She says she gets too hyper when she takes prednisone. CHIVO DERAS MD [address] [place], [address], PA - [facility] 04/30/2022 17:01:44 05/07/2022 [...] Trujillo, DO [address] [place], [address], PA - [facility] 05/07/2022 10:38:57 OBGyn Episode No OBEpisode recorded.
--- OUTSIDE RECORDS SUMMARY | 2024-06-18 13:26 | XMS_ITS | Encounter Summary ---
Author Organization [employer] [place] [address] Care Team Providers Care Black Puller Name Role Phone Frank Edmonds MD Primary Care Provider Encounter Details Date Type Department Care Team (Late st Contact Info) Description 06/11/2020 10:20 AM EDT Hospital Encounter [facility] [address] [facility] 2nd [place] [id number] Thaddeus De Anda MD [address] [place] [address] Social History Tobacco Use Types Packs/Day Years [...] money to get more. Never true 10/14/2020 [facility] Answer Date Re corded How [...] on filedocumented in this encounter Care Teams Black Puller Relationship Specialty Start Date End Date Frank Edmonds MD [address] [address] PCP - General 05/20/20 10/25/21 documented as of this encounter
--- OUTSIDE RECORDS SUMMARY | 2024-06-18 13:26 | XMS_ITS | Clinical Summary ---
Author Organization [facility] Address [address] [place] [address] Phone Care Team Providers Care Parts Cataloger Name Role Phone Physician, No Pcp Primary [...] Eye exam every 2 years Chronic myelopathy ([facility] V24, [facility] V28) Anxiousness 04/18/2021 History of percutaneous coronary intervention Coronary artery disease invo lving [place] heart without angina pectoris 11/19/2020 Assessment & [...] wks NSTEMI (non-ST elevated myoc ardial infarction) ([facility] V24, [facility] V28) 10/11/2020 Overview (10/12/2020): Added automatically from request for surgery [id number] Assessment & Plan (10/12/2020 3:40 PM EDT): - s/p cardiac cath-This is consistent with a nonhemodynamically significant stenosis. -AAC remains on consult -Troponins-0.015-->0.50-->0.651-->0.327 -tele monitor - Cardio requested CTA r/o PE, U/S bilateral lower legs- r/o DVT and ECHO -asa/plavix/toprol/lipitor Severe episode of recurrent major depressive disorder, without psychotic features ([facility] V24, [facility] V28) 08/26/2020 Somatoform disorder, unspecified 07/22/2020 Obsessive-compulsive disorder 07/22/2020 Episode of recurrent major d epressive disorder ([facility] V24) 07/22/2020 Breast neoplasm 04/01/2020 Panic disorder [...] your next appointment. Limit the use of qvhb-bwu-gnthtqf and prescription pain medications to 2 - [...] urge urinary incontinence 08/23 Borderline personality disorder ([facility] V24, CM S/[facility] V28) 08/22/2016 Temporomandibular joint disorder 08/22/2016 Dislocation [...] preservative (Fluzone; Afluria) 6mo and older 01/18/2016 [employer] SARS-CoV-2 COVID -19, vector-nr, rS-Ad26, preservative free [...] TONSILLECTOMY ADENOIDECTOMY, BILATERAL MYRINGOTOMY AND TUBES PROCEDURE: [place] TONSILLECTOMY & ADENOIDECTOMY <AGE 12 OTHER SURGICAL HISTORY PROCEDURE: [place] ARTHRS KNEE W/MENISCECTOMY MED&LAT W/SHAVING; COMMENT: left side OTHER SURGICAL HISTORY PROCEDURE: [place] DILATION & CURETTAGE DX&/THER NONOBSTETRIC; COMMENT: 3 [...] this topic Medical Devices Implanted Type Area Manager Package Device Identifier Shelf Expiration Date Model / [...] mmol/L LAB CHEMISTRY METHOD 02/02/2022 8:51 AM [facility] Potassium 3.1(L) 3.5 - 5.1 mmol/L LAB CHEMISTRY METHOD 02/02/2022 8:51 AM [facility] Chloride 114(H) 98 - 107 mmol/L LAB CHEMISTRY METHOD 02/02/2022 8:51 AM [facility] CO2 21 21 - 32 mmol/L LAB CHEMISTRY METHOD 02/02/2022 8:51 AM [facility] Anion Gap 8 3 - 11 LAB CHEMISTRY METHOD 02/02/2022 8:51 AM [facility] Glucose 104(H) 70 - 99 mg/dL LAB CHEMISTRY METHOD 02/02/2022 8:51 AM [facility] BUN 10 7 - 18 mg/dL LAB CHEMISTRY METHOD 02/02/2022 8:51 AM [facility] Creatinine 0.80 0.55 - 1.02 mg/dL LAB CHEMISTRY METHOD 02/02/2022 8:51 AM [facility] eGFR 90 >=60 mL/min/1. 73m2 LAB CHEMISTRY METHOD 02/02/2022 8:51 AM [facility] Comment: The MDRD GFR formula is valid only for adults between ages 18 and 70. Effective November 21, 2021, calculation based on the??Chronic Kidney Disease Epidemiology Collaboration (CKD-EPI) equation refit??without adjustment for race. BUN/Creatinine Ratio 12.5 12.0 - 20.0 LAB CHEMISTRY METHOD 02/02/2022 8:51 AM [facility] Calcium 9.0 8.5 - 10.1 mg/dL LAB CHEMISTRY METHOD 02/02/2022 8:51 AM [facility] AST (SGOT) 12(L) 15 - 37 unit/L LAB CHEMISTRY METHOD 02/02/2022 8:51 AM [facility] ALT (SGPT) 17 13 - 56 unit/L LAB CHEMISTRY METHOD 02/02/2022 8:51 AM [facility] Alkaline Phosphatase 72 42 - 98 unit/L LAB CHEMISTRY METHOD 02/02/2022 8:51 AM [facility] Total Protein 7.0 6.4 - 8.2 g/dL LAB CHEMISTRY METHOD 02/02/2022 8:51 AM [facility] Albumin 3.8 3.4 - 5.0 g/dL LAB CHEMISTRY METHOD 02/02/2022 8:51 AM [facility] Total Bilirubin 0.6 0.2 - 1.0 mg/dL LAB CHEMISTRY METHOD 02/02/2022 8:51 AM [facility] Blood Venous blood specimen / Unknown Venipuncture / Unknown 02/02/2022 7:58 AM EST 02/02/2022 8:04 AM EST us Adonis Zafar DO LAB BLOOD ORDERABLES Final Res ult [facility] [address] [place] [address] * HIV 1, HIV 2 antibody screen, P24 antigen with reflex to differentiation (10/26/2021 2:27 PM EDT) HIV Combo AB/AG Negative/ Nonreacti ve Negative/ Nonreacti ve LAB CHEMISTRY METHOD 10/27/2021 5:14 PM EDT [facility] Blood Venous blood specimen / Unknown Venipuncture / Unknown 10/26/2021 2:27 PM EDT 10/26/2021 2:27 PM EDT Narrative [facility] - 10/27/2021 5:14 PM [...] 5. Only REACTIVE results are reported to [facility]. 6. REACTIVE results will be sent to our Reference Laboratory for HIV-1 AB, HIV-2 AB differentiation, and HIV-1 RNA detection by [employer] Designer-Mediated Amplification (TMA) and if positive, quantitation by Real-Time PCR. Gale Howard NP LAB BLOOD ORDERABLES Final Res ult Performing Organization Address City/[facility]/ZIP Co de Phone Number [facility] [address] [place] [id number] * Hepatitis panel, acute (10/26/2021 2:27 PM EDT) Pathologist [facility] Hep A Ab, IgM Negative Negative 10/28/2021 [...] AM EDT Performed at: ??01 - [facility] [address] ??[id number] Food Beverage Supervisor: Yahir Moss MD, Phone: ??[phone] Gale Howard NP LAB BLOOD ORDERABLES Final Res ult [facility] * (ABNORMAL) Lipid panel (10/26/2021 2:27 PM EDT) Pathologist [facility] Cholesterol 153 <200 mg/dL LAB CHEMISTRY METHOD 10/26/2021 4:57 PM EDT [facility] Triglycerides 157(H) <150 mg/dL LAB CHEMISTRY METHOD 10/26/2021 4:57 PM EDT [facility] HDL 49(L) >59 mg/dL LAB CHEMISTRY METHOD 10/26/2021 4:57 PM EDT [facility] Comment: <35 mg/dl is the cut-point for increased Coronary Heart Disease (CHD) risk. LDL Calculated 73 0 - 99 mg/dL LAB CHEMISTRY METHOD 10/26/2021 4:57 PM EDT [facility] VLDL Cholesterol Francisco 31.4(H) <=30 mg/dL LAB CHEMISTRY METHOD 10/26/2021 4:57 PM EDT [facility] Blood Venous blood specimen / Unknown Venipuncture / Unknown 10/26/2021 2:27 PM EDT 10/26/2021 2:27 PM EDT us Gale Howard NP LAB BLOOD ORDERABLES Final Res ult [facility] [address] [place] [address] * Cervical Cancer Screening: HPV (12/02/2019) Pathologist [facility] Cervical Cancer Screening: HPV abstracted us Historical Provider HEALTH MAINTENANCE Final Result from Last 3 Months or Most Recently Relevant [place] [address] MEDICARE Advance Directives * Full Code - [...] currently active code status orders. Care Teams Parts Cataloger Relationship Specialty Start Date End Date Physician, No Pcp PCP - General 02/02/22
--- OUTSIDE RECORDS SUMMARY | 2024-06-18 13:26 | XMS_ITS | Encounter Summary ---
Author Organization [place] [address] Care Team Providers Care Coil Strapper Name Role Phone Unavailable Primary Care Provider Unavailabl e Encounter Details Date Type Department Care Team (Late st Contact Info) Description 12/11/2019 Hospital Encounter TH HISTORIC ENCOUNTERS EASTERN CONVERSION ONLY Selma Ace MD [address] [place] [address] Palpitations Social History Tobacco Use Types Packs/Day [...] encounter Results * Myocard Perf Spect Multiple [id number] [facility] (12/11/2019 8:45 PM EDT) Anatomical Region Laterality Modality Other 12/11/2019 9:02 AM EDT Narrative 12/11/2019 8:45 PM EDT [facility] in Cardiology [address] [place], [place] ??[address] Regaden[employer]on Stress Nuclear SPECT Report Name: ??TEJA DOUGLAS ?Exam Date: 12/11/2019 09:02 ?? Ordering Phys: SELMA ACE ?: ? 1970 ? Referring Phys:SELMA ACE Age: 49 ? Gender: F ? Ht (in):65 ??Wt (lb):163 BSA ??1.84 ?Technologist: ??JAM Procedure CPT: ?? 55391 Indications: ? Other chest pain ICD Codes: ? R07.89 Cardiac History: palpitations [facility] Appropriateness Criteria: Cardiac Medications: ?pravastatin, [...] intravenously at rest. Resting SPECT images were pvthavnm15 ? minutes past injection. Post Stress Imagin.9 [...] Procedure Note Historical, Cardiovascular Results, - 07/08/2020 [facility] [address] [place] [address] Regadenoson Stress Nuclear SPECT Report Name: TEJA DOUGLAS Exam Date: 12/11/2019 09:02Ordering Phys: SELMA ACE : 1970Referring Phys:SELMA ACE Age: 49 Gender: F Ht (in):65 Wt (lb):163 BSA 1.84Technologist: FRANKIE Procedure CPT: 51656 Indications: Other chest pain ICD Codes: R07.89 Cardiac History: palpitations [facility] Appropriateness Criteria: Cardiac Medications: pravastatin, [...] injectedintravenously at rest. Resting SPECT images were kwheybjs55 minutes past injection. Post Stress Imagin.9 mCi of Tc-99m Sestamibi was injectedintravenously at peak pharmacological stress. Post Stress SPECT images were pswsgsek47 minutes past tracerinjection. Technical Quality: Technically adequate [...]
--- OUTSIDE RECORDS SUMMARY | 2024-06-18 13:26 | XMS_ITS | Encounter Summary ---
Author Organization [facility] [address] Care Team Providers Care Stockroom Associate Name Role Phone Unavailable Primary Care Provider Unavailabl e Encounter Details Date Type Department Care Team (Late st Contact Info) Description 11/25/2019 Hospital Encounter TH HISTORIC ENCOUNTERS EASTERN CONVERSION ONLY Selma Ace MD [address] [place] [address] Other chest pain Social History Tobacco Use [...] money to get more. Never true 10/14/2020 [facility] Answer Date Re corded How [...] this encounter Results * TTE W/Doppler Complete [id number] [facility] (11/26/2019 10:09 AM EDT) Anatomical Region Laterality Modality Other 11/25/2019 8:17 AM EDT Narrative 11/26/2019 10:09 AM EDT [facility] [address] [place], [place] ??[address] Transthoracic Echocardiogram Report Name: ?? WEIR, TEJA ?Exam Date: ?? 11/25/2019 08:17 ?? Ordering Physician:SELMA ACE Age: ?49 ? Gender: ??F ? Ht (in):65 ?Wt (lb): 168 ?Referring Physician:SHIRLEY WOLF ?BSA: ?? 1.87 ? Awning Frame Maker: ? DAM : ?1970 ?BP (mmHg): ??108 ?/ 70 Exam Location: [facility] Type of Exam: Adult CPT's: ?60309 Clinical Indications:OTHER CHEST PAIN / LIGHTHEADED / [...] Procedure Note Historical, Cardiovascular Results, - 07/08/2020 [facility] [address] [place] [address] Transthoracic Echocardiogram Report Name: TEJA DOUGLAS Exam Date: 11/25/2019 08:17Ordering Physician:SELMA ACE Age: 49 Gender: F Ht (in):65 Wt (lb): 168Referring Physician:SHIRLEY WOLF BSA: 1.87Sonographer: TREVOR : 1970 BP (mmHg): 108 / 70 Exam Location: [facility] Type of Exam: Adult CPT's: 39834 Clinical Indications:OTHER CHEST PAIN / LIGHTHEADED / [...] E to A Ratio 1.85 TR Peak Wylkbnog828.00 cm/ MV Deceleration Time 153.54 ms TR Peak Mrwzgary07.28 mmHg Cullen Nelson MD, [facility] (Electronically Signed) Final Date: 26 November 2019 10:08 us Cardiovascular Results Historical CV HISTORIC AL CONV PROCEDURES Final Result * Stress Test Cardiac Tracing [id number] [facility] (11/25/2019 7:37 PM EDT) Anatomical Region Laterality Modality Other 11/25/2019 9:09 AM EDT Narrative 11/25/2019 7:37 PM EDT [facility] in Cardiology [address] [place], [place] ??[address] Stress Test Report Name: ??CARLOS TEJA ? Exam Date: 11/25/2019 09:09 ?Ordering Phys: SELMA ACE ?Exam Location: [place] [facility] ? Referring Phys:SHIRLEY WOLF Age: 49 ? Gender: F ? Ht (in):65 ??Wt (lb):163 BSA ??1.84 ?Technologist: ??debo, rn : ?1970 Procedure CPT: ?? 30090 Indications: ? Other chest pain, Palpitations, Other [...] ??/86 ?% MPHR: ?? 77 ? Double Product:42441 BP Response: ? Normal blood pressure response [...] Note Historical, Cardiovascular Results, MD - 07/08/2020 [facility] [place] [address] Stress Test Report Name: TEJA DOUGLAS Exam Date: 11/25/2019 09:09Ordering Phys: SELMA ACE Exam Location: [place] OfficeReferring Phys:SHIRLEY LUCIANO Age: 49 Gender: F Ht (in):67 Wt (lb):163 BSA 1.84Technologist: anny edmondson : 1970 Procedure CPT: 57237 Indications: Other chest pain, Palpitations, Other forms of dyspnea,Bradycardia, unspecified ICD-9 Codes: R07.89 R00.2 R06.09 R00.1 Patient History: chest pain, dyspnea, palpitations Medications: propanolol, pravastatin STRESS TEST Ovi Protocol Exercise Duration(min:sec):6:00 METS: 7.0 mets Resting HR (bpm):79 Resting BP (mmHg): 132 /78 MPHR: 147Target HR: 7499 Peak HR (bpm): 134 Peak BP (mmHg): 152 /86 % MPHR: 77Double Product:94505 BP Response: Normal blood pressure response during [...]
--- OUTSIDE RECORDS SUMMARY | 2024-06-18 13:26 | XMS_ITS | Encounter Summary ---
Author Organization [employer] [place] [address] Care Team Providers Care Employment Clerk Name Role Phone Unavailable Primary Care Provider Unavailabl e Encounter Details Date Type Department Care Team (Latest Contact Info) Description 01/23/2020 Hospital Encounter TH HISTORIC ENCOUNTERS EASTERN CONVERSION ONLY Ruiz Simon PA [address] [place] [address] Other diseases of larynx Social History Tobacco [...] Associated Diagnosis Comments CT NECK W/CONT OP (10754) Routine 01/23/2020 8:49 AM EST documented in this encounter Results * CT NECK W/CONT OP (07131) (01/23/2020 8:49 AM EST) Anatomical Region Laterality Modality Computed Tomogra phy 01/23/2020 8:26 AM EST Narrative 01/23/2020 8:49 AM EST EXAMINATION: [phone] - CT NECK W/CONTRAST WORKING DIAGNOSIS: ?? [...] Note Lavon Bartlett MD - 04/16/2020 EXAMINATION: [phone] - CT NECK W/CONTRAST WORKING DIAGNOSIS: chest [...]
== END 2024-06-18 16:54 | disposition home or self-care (01) ==
LOC: HO.HKA 11:51
PROVIDERS: PCP Internal Medicine; Visit Provider Internal Medicine Hypertension Specialist
DX: E87.6 Hypokalemia (principal); N39.46 Mixed incontinence
CPT/HCPCS: 99212

== ENCOUNTER → 2024-06-18 11:50 | Outpatient (BNVA) | payer MEDICARE, MEDICAID, SELFPAY | PROVIDERS: PCP Internal Medicine; Visit Provider Internal Medicine Hypertension Specialist ==

== ENCOUNTER 2024-06-19 09:16 | Outpatient (AMB) | payer MEDICARE, MEDICAID, SELFPAY ==
[2024-06-19 09:23] VITALS: BP 122/78; PULSE 107; O2SAT 96; BMI 17.7
--- NOTE | 2024-06-19 09:23 | A.OFFPC_ITS ---
Vital Signs 06/19/24 09:23 Height 5 ft 5 in Weight 106 lb 6 oz BMI 17.7 BP 122/78 Blood Pressure Location Lt brachial Position Sitting Pulse 107 H Pulse Source Pulse Oximeter Pulse Oximetry (%) 96 Oxygen Delivery Method Room Air Intake Visit Reasons: 1m follow up Allergies cefazolin [From Anc] Allergy (Mild, Verified 06/19/24 09:23) Swelling Medication List - Last Reconciled 06/19/24 by Ciro White MD atorvastatin 80 mg PO QPM clopidogrel 75 mg PO DAILY omeprazole 20 mg PO DAILY ondansetron HCl 4 mg PO ONCE PRN 90 days oxycodone 5 mg PO BID 30 days solifenacin 10 mg PO DAILY Tobacco use date assessed: 06/19/24 Dental Screening Dental Screen Date: 06/19/24 Did you have a dental visit in the last 12 months?: Yes Did you have a dental problem in the last 6 months where you did not have access to dental care?: No Was dental information given to patient?: Patient has dentist HPI 1m follow up HPI Details History - The patient is a 54-year-old female pr esenting for a medication refill and discussing ongoing medical issues. - The patient reports feeling stressed w ith a lot of happening in her life, which is contributing to her current discomfort. - She has a recent history of involuntar y weight loss of two and a half pounds since April, despite increased food and water intake as previously advised. - The patient has a concurrent appointme nt with a locator at the end of August and a neurology appointment scheduled for the following day. - Historical evaluations include urologi aicha concerns involving bladder function addressed through multiple cystoscopies, dilatation and curettage, and several bladder Botox injections, the most recent in 2019, to manage bladder dysfunct ion. - She experiences incontinence necessita ting the use of 10 packages of diapers monthly, estimated to contain approximately 16 each, with a daily usage around three to four. - The patient has a history of migraines , notably a year-long episode, with symptoms recently beginning to recur. And sternal neuralgia for that she is taking oxycodone 5 mg 2 times a day Problem List - Stress - Bladder Dysfunction - Incontinence - History of Migraine - History of Knee Arthroplasty - sternal neuralgia Patient Instructions - Continue with stress management as dis cussed. - Follow up with scheduled appointments with gastroenterology and neurology. - Maintain hydration and nutrition as pe r previous discussions. - Track daily diaper usage to help manag e incontinence supplies more effe ctively. - Coordinate with the medical supply sto re named [facility] for accessing incontinence products. - Contact the [place] office for any [facility] medical records if necessary. - oxycodone refill provided Review of Systems - General: No fever no chills - Neurological: No headaches no dizziness - Ear nose throat: No sore throat no hearing difficulty no ear pain - Cardiovascular: No syncope, no chest pain, no palpitations - Gastrointestinal: No nausea vomiting or diarrhea Physical Exam - General: No acute distress - HEENT: No acute findings - Neck: Supple - Respiratory system: Able to talk in f ull sentences, no audible wheeze - Cardiovascular: S1-S2 regular in rate and rhythm - Gastrointestinal: No pain - Extremities: No new findings - KRAFT MILL OPERATOR: Alert awake oriented x3 motor se nsory intact - Skin: Normal turgor PFSH Medical History Obsessive compulsive disorder Agoraphobia Personality disorder Anxiety and depression 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) Surgical History Hx of dilation and curettage Hx of knee surgery Hx of tonsillectomy Family History Father Heart attack Hypertension Mother Hypertension Social History Household Members Other:: mom Housing: Condominium Alcohol intake: never Patient Tobacco Use Status: Current everyday Tobacco user Tobacco use type: Cigarette Years Smoked: 32 years e-Cigarette/Vaping Use: Never Used Second Hand Smoke Exposure: No service: No Current occupational status: disabled Current occupational exposures/hazards: No Sexual orientation: Straight/Heterosexual Gender identity: Female Cognitive needs: No Hearing needs: No Vision needs: Yes Questionnaire Thrive Questionnaire Date Thrive assessed: 02/28/24 I am a: Patient What is your living situation today?: I have a steady place to live Within the past 12 months, did the food you bought not last and you didn't have the money to get more?: I choose not to answer this question Within the past 12 months, did you worry whether your food would run out before you got money to buy more?: Never true Do you have trouble paying for medicines?: No Do you have trouble getting transportation to medical appointments?: No Do you have trouble paying your heating and electricity bill?: No Do you have trouble taking care of your child, family member or friend?: No Do you have trouble with day-to-day activities such as bathing, preparing meals, shopping, managing finances, etc.?: No Are you currently unemployed and looking for a job?: No Are you interested in more education?: No Please select the resources that you would like help with: None Currently or been in a relationship where the following occur: No concerns reported THRIVE Score: 0 FIFI-7 AMB Questionnaire FIFI-7 Date FIFI - 7 assessed: 02/28/24 Source: Developed by Drs. Dallas Keller, Cassie Frankel, Glynn Blackwell and colleagues, with an educational kane from [employer]. Physical exam (Primary Care) Vital Signs: Last Vital Signs Pulse 107 H 06/19/24 09:23 BP 122/78 06/19/24 09:23 Pulse Ox 96 06/19/24 09:23 Oxygen Delivery Method Room Air 06/19/24 09:23 BMI result Body Mass Index 17.7 Tobacco/Smoking Status: Tobacco use Status Tobacco use date assessed 06/19/24 06/19/24 09:25 Patient Tobacco Use Status Current everyday Tobacco 06/19/24 09:25 Tobacco use type Cigarette 06/19/24 09:25 e-Cigarette/Vaping Use Never Used 06/19/24 09:25 Thrive Assessment: Date of Thrive Assessment Date Thrive assessed 02/28/24 06/19/24 09:25 Currently or been in a relationship where the following occur: No concerns reported Coding Level of Care Code Est Pt Level 4 (09822) Complex EM visit Add On G2211 Diagnoses 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 Recurrent major depressive disorder, in partial remission F33.41 Active/Remission status: in partial remission Anxiety, generalized F41.1 Narcotic dependency, continuous F11.20 Mixed stress and urge urinary incontinence N39.46 Urinary Incontinence type: mixed stress and urge incontinence Chronic primary pain of thoracic region M54.6; G89.29 Other obsessive-compulsive disorders F42.8 Obsessive-compulsive disorder type: other Chronic nausea R11.0 Assessment & Plan Assessment & Plan (1) Intercostal neuralgia: Onset Date: Unknown Code(s): G58.8 - Other specified mononeuropathies Category: Medical (2) Major depression, recurrent: Code(s): F33.9 - Major depressive disorder, recurrent, unspecified Category: Medical Qualifiers: Active/Remission status: in partial remission Qualified Code(s): F33.41 - Major depressive disorder, recurrent, in partial remission (3) Anxiety, generalized: Code(s): F41.1 - Generalized anxiety disorder Category: Medical (4) Narcotic dependency, continuous: Code(s): F11.20 - Opioid dependence, uncomplicated Category: Medical (5) Urine incontinence: Comment: Chronic. With microscopic hematuria. Being followed by Urology Code(s): R32 - Unspecified urinary incontinence Category: Medical Qualifiers: Urinary Incontinence type: mixed stress and urge incontinence Qualified Code(s): N39.46 - Mixed incontinence (6) Chronic primary pain of thoracic region: Code(s): M54.6 - Pain in thoracic spine; G89.29 - Other chronic pain Category: Medical (7) Obsessive compulsive disorder: Code(s): F42.9 - Obsessive-compulsive disorder, unspecified Category: Medical Qualifiers: Obsessive-compulsive disorder type: other Qualified Code(s): F42.8 - Other obsessive-compulsive disorder (8) Chronic nausea: Code(s): R11.0 - Nausea Category: Medical Plan History - The patient is a 54-year-old female with a history of depression anxiety and chronic nausea, presenting for a medication refill and discussing ongoing medical issues. - The patient reports feeling stressed with a lot of happening in her life, which is contributing to her current discomfort. - She has a recent history of involuntary weight loss of two and a half pounds since April, despite increased food and water intake as previously advised. - The patient has a concurrent appointment with a locator at the end of August and a neurology appointment scheduled for the following day. - Historical evaluations include urological concerns involving bladder function addressed through multiple cystoscopies, dilatation and curettage, and several bladder Botox injections, the most recent in 2019, to manage bladder dysfunction. - She experiences incontinence necessitating the use of 10 packages of diapers monthly, estimated to contain approximately 16 each, with a daily usage around three to four. - The patient has a history of migraines, notably a year-long episode, with symptoms recently beginning to recur. And sternal neuralgia for that she is taking oxycodone 5 mg 2 times a day Depression and anxiety is managed through psychiatrist Problem List - Stress - Bladder Dysfunction - Incontinence - History of Migraine - History of Knee Arthroplasty - sternal neuralgia - depression and anxiety - chronic nausea Patient Instructions - Continue with stress management as discussed. - Follow up with scheduled appointments with gastroenterology and neurology. - Maintain hydration and nutrition as per previous discussions. - Track daily diaper usage to help manage incontinence supplies more effectively. - Coordinate with the medical supply store named [facility] for accessing incontinence products. - Contact the [place] office for any missing medical records if necessary. - oxycodone refill provided Medications: New [Diapers adult] As directed 300 ea 6RF N39.46 - Mixed incontinence Refilled oxycodone Partial Fill upon patient request. 5 mg PO BID 30 days 60 tabs 0RF pain
--- OUTSIDE RECORDS SUMMARY | 2024-06-19 09:54 | XMS_ITS | Encounter Summary ---
Author [place] [address] Care Team Providers Care Glove Wrapper Name Role Phone Unavailable Primary Care Provider Unavailabl e Encounter Details Date Type Department Care Team (Latest Contact Info) Description 01/23/2020 Hospital Encounter TH HISTORIC ENCOUNTERS EASTERN CONVERSION ONLY Ruiz Simon PA [address] [place] [address] Other diseases of larynx Social History Tobacco [...] money to get more. Never true 10/14/2020 [facility] Answer Date Re corded How [...] Associated Diagnosis Comments CT NECK W/CONT OP (86645) Routine 01/23/2020 8:49 AM EST documented in this encounter Results * CT NECK W/CONT OP (68995) (01/23/2020 8:49 AM EST) Anatomical Region Laterality Modality Computed Tomogra phy 01/23/2020 8:26 AM EST Narrative 01/23/2020 8:49 AM EST EXAMINATION: [phone] - CT NECK W/CONTRAST WORKING DIAGNOSIS: ?? [...] Note Lavon Bartlett MD - 04/16/2020 EXAMINATION: [phone] - CT NECK W/CONTRAST WORKING DIAGNOSIS: chest [...]
--- OUTSIDE RECORDS SUMMARY | 2024-06-19 09:54 | XMS_ITS | Encounter Summary ---
Author Organization [place] [address] Care Team Providers Care Special Education Administrator Name Role Phone Frank Edmonds MD Primary Care Provider Encounter Details Date Type Department Care Team (Late st Contact Info) Description 06/11/2020 10:20 AM EDT Hospital Encounter [facility] [address] [facility] 2nd [place] [phone] Thaddeus De Anda MD [address] [place] [address] Social History Tobacco Use Types Packs/Day Years [...] on filedocumented in this encounter Care Teams Special Education Administrator Relationship Specialty Start Date End Date Frank Edmonds MD [address] [phone] PCP - General 05/20/20 10/25/21 documented as of this encounter
--- OUTSIDE RECORDS SUMMARY | 2024-06-19 09:54 | XMS_ITS | Encounter Summary ---
Author Organization [place] [address] Care Team Providers Care Sheriff Officer Name Role Phone Frank Edmonds MD Primary Care Provider Encounter Details Date Type Department Care Team (Late st Contact Info) Description 06/15/2020 2:06 PM EDT Hospital Encounter [facility] [address] [place] [phone] Darinel Sanchez MD [address] [place] [address] Social History Tobacco Use Types [...] on filedocumented in this encounter Care Teams Sheriff Officer Relationship Specialty Start Date End Date Frank Edmonds MD [address] [place] [phone] PCP - General 05/20/20 10/25/21 documented as of this encounter
--- OUTSIDE RECORDS SUMMARY | 2024-06-19 09:55 | XMS_ITS | Encounter Summary ---
Author Organization [employer] [place] [address] Care Team Providers Care Pediatric Occupational Therapist Name Role Phone Unavailable Primary Care Provider Unavailabl e Encounter Details Date Type Department Care Team (Late st Contact Info) Description 11/25/2019 Hospital Encounter TH HISTORIC ENCOUNTERS EASTERN CONVERSION ONLY Selma Ace MD [address] [place] [address] Other chest pain Social History Tobacco Use [...] this encounter Results * TTE W/Doppler Complete [id number] [facility] (11/26/2019 10:09 AM EDT) Anatomical Region Laterality Modality Other 11/25/2019 8:17 AM EDT Narrative 11/26/2019 10:09 AM EDT [facility] [address] [place], [place] ??[address] Transthoracic Echocardiogram Report Name: ?? WEIR, TEJA ?Exam Date: ?? 11/25/2019 08:17 ?? Ordering Physician:SELMA ACE Age: ?49 ? Gender: ??F ? Ht (in):65 ?Wt (lb): 168 ?Referring Physician:SHIRLEY WOLF ?BSA: ?? 1.87 ? Hand Edge Bander: ? DAM : ?1970 ?BP (mmHg): ??108 ?/ 70 Exam Location: [facility] Type of Exam: Adult CPT's: ?51664 Clinical Indications:OTHER CHEST PAIN / LIGHTHEADED / [...] Procedure Note Historical, Cardiovascular Results, - 07/08/2020 [facility] [address] [place] [address] Transthoracic Echocardiogram Report Name: TEJA DOUGLAS Exam Date: 11/25/2019 08:17Ordering Physician:SELMA ACE Age: 49 Gender: F Ht (in):65 Wt (lb): 168Referring Physician:SHIRLEY WOLF BSA: 1.87Sonographer: TREVOR : 1970 BP (mmHg): 108 / 70 Exam Location: [facility] Type of Exam: Adult CPT's: 76360 Clinical Indications:OTHER CHEST PAIN / LIGHTHEADED / [...] E to A Ratio 1.85 TR Peak Mbjjqwwc373.00 cm/ MV Deceleration Time 153.54 ms TR Peak Oxgtejwg72.28 mmHg Cullen Nelson MD, [facility] (Electronically Signed) Final Date: 26 November 2019 10:08 us Cardiovascular Results Historical CV HISTORIC AL CONV PROCEDURES Final Result * Stress Test Cardiac Tracing [id number] [facility] (11/25/2019 7:37 PM EDT) Anatomical Region Laterality Modality Other 11/25/2019 9:09 AM EDT Narrative 11/25/2019 7:37 PM EDT [facility] in Cardiology [address] [place], [place] ??[address] Stress Test Report Name: ??CARLOS TEJA ? Exam Date: 11/25/2019 09:09 ?Ordering Phys: SELMA ACE ?Exam Location: [place] [facility] ? Referring Phys:SHIRLEY WOLF Age: 49 ? Gender: F ? Ht (in):65 ??Wt (lb):163 BSA ??1.84 ?Technologist: ??debo, rn : ?1970 Procedure CPT: ?? 00804 Indications: ? Other chest pain, Palpitations, Other [...] ??/86 ?% MPHR: ?? 77 ? Double Product:66298 BP Response: ? Normal blood pressure response [...] Note Historical, Cardiovascular Results, MD - 07/08/2020 [facility] [place] [address] Stress Test Report Name: TEJA DOUGLAS Exam Date: 11/25/2019 09:09Ordering Phys: SELMA ACE Exam Location: [place] OfficeReferring Phys:SHIRLEY LUCIANO Age: 49 Gender: F Ht (in):65 Wt (lb):163 BSA 1.84Technologist: anny edmondson : 1970 Procedure CPT: 79960 Indications: Other chest pain, Palpitations, Other forms of dyspnea,Bradycardia, unspecified ICD-9 Codes: R07.89 R00.2 R06.09 R00.1 Patient History: chest pain, dyspnea, palpitations Medications: propanolol, pravastatin STRESS TEST Ovi Protocol Exercise Duration(min:sec):6:00 METS: 7.0 mets Resting HR (bpm):79 Resting BP (mmHg): 132 /78 MPHR: 147Target HR: 7499 Peak HR (bpm): 134 Peak BP (mmHg): 152 /86 % MPHR: 77Double Product:81544 BP Response: Normal blood pressure response during [...]
--- OUTSIDE RECORDS SUMMARY | 2024-06-19 09:55 | XMS_ITS | Clinical Summary ---
Author Organization [facility] Address [address] [place] [address] Phone Care Team Providers Care Ornament Stapler Name Role Phone Physician, No Pcp Primary [...] Eye exam every 2 years Chronic myelopathy ([facility] V24, [facility] V28) Anxiousness 04/18/2021 History of percutaneous coronary intervention Coronary artery disease invo lving kluti kaah heart without angina pectoris 11/19/2020 Assessment & [...] wks NSTEMI (non-ST elevated myoc ardial infarction) ([facility] V24, [facility] V28) 10/11/2020 Overview (10/12/2020): Added automatically from request for surgery [id number] Assessment & Plan (10/12/2020 3:40 PM EDT): - s/p cardiac cath-This is consistent with a nonhemodynamically significant stenosis. -AAC remains on consult -Troponins-0.015-->0.50-->0.651-->0.327 -tele monitor - Cardio requested CTA r/o PE, U/S bilateral lower legs- r/o DVT and ECHO -asa/plavix/toprol/lipitor Severe episode of recurrent major depressive disorder, without psychotic features ([facility] V24, [facility] V28) 08/26/2020 Somatoform disorder, unspecified 07/22/2020 Obsessive-compulsive disorder 07/22/2020 Episode of recurrent major d epressive disorder ([facility] V24) 07/22/2020 Breast neoplasm 04/01/2020 [...] your next appointment. Limit the use of faji-nbx-hrrlgfd and prescription pain medications to 2 - [...] urge urinary incontinence 08/23 Borderline personality disorder ([facility] V24, CM S/[facility] V28) 08/22/2016 Temporomandibular joint disorder [...] preservative (Fluzone; Afluria) 6mo and older 01/18/2016 [employer] SARS-CoV-2 COVID -19, vector-nr, rS-Ad26, preservative free [...] TONSILLECTOMY ADENOIDECTOMY, BILATERAL MYRINGOTOMY AND TUBES PROCEDURE: CO TONSILLECTOMY & ADENOIDECTOMY <AGE 12 OTHER SURGICAL HISTORY PROCEDURE: CO ARTHRS KNEE W/MENISCECTOMY MED&LAT W/SHAVING; COMMENT: left side OTHER SURGICAL HISTORY PROCEDURE: CO DILATION & CURETTAGE DX&/THER NONOBSTETRIC; COMMENT: 3 [...] this topic Medical Devices Implanted Type Area Cover Maker Device Identifier Shelf Expiration Date Model / [...] mmol/L LAB CHEMISTRY METHOD 02/02/2022 8:51 AM [facility] Potassium 3.1(L) 3.5 - 5.1 mmol/L LAB CHEMISTRY METHOD 02/02/2022 8:51 AM [facility] Chloride 114(H) 98 - 107 mmol/L LAB CHEMISTRY METHOD 02/02/2022 8:51 AM [facility] CO2 21 21 - 32 mmol/L LAB CHEMISTRY METHOD 02/02/2022 8:51 AM [facility] Anion Gap 8 3 - 11 LAB CHEMISTRY METHOD 02/02/2022 8:51 AM [facility] Glucose 104(H) 70 - 99 mg/dL LAB CHEMISTRY METHOD 02/02/2022 8:51 AM [facility] BUN 10 7 - 18 mg/dL LAB CHEMISTRY METHOD 02/02/2022 8:51 AM [facility] Creatinine 0.80 0.55 - 1.02 mg/dL LAB CHEMISTRY METHOD 02/02/2022 8:51 AM [facility] eGFR 90 >=60 mL/min/1. 73m2 LAB CHEMISTRY METHOD 02/02/2022 8:51 AM [facility] Comment: The MDRD GFR formula is valid only for adults between ages 18 and 70. Effective November 21, 2021, calculation based on the??Chronic Kidney Disease Epidemiology Collaboration (CKD-EPI) equation refit??without adjustment for race. BUN/Creatinine Ratio 12.5 12.0 - 20.0 LAB CHEMISTRY METHOD 02/02/2022 8:51 AM [facility] Calcium 9.0 8.5 - 10.1 mg/dL LAB CHEMISTRY METHOD 02/02/2022 8:51 AM [facility] AST (SGOT) 12(L) 15 - 37 unit/L LAB CHEMISTRY METHOD 02/02/2022 8:51 AM [facility] ALT (SGPT) 17 13 - 56 unit/L LAB CHEMISTRY METHOD 02/02/2022 8:51 AM [facility] Alkaline Phosphatase 72 42 - 98 unit/L LAB CHEMISTRY METHOD 02/02/2022 8:51 AM [facility] Total Protein 7.0 6.4 - 8.2 g/dL LAB CHEMISTRY METHOD 02/02/2022 8:51 AM [facility] Albumin 3.8 3.4 - 5.0 g/dL LAB CHEMISTRY METHOD 02/02/2022 8:51 AM [facility] Total Bilirubin 0.6 0.2 - 1.0 mg/dL LAB CHEMISTRY METHOD 02/02/2022 8:51 AM [facility] Blood Venous blood specimen / Unknown Venipuncture / Unknown 02/02/2022 7:58 AM EST 02/02/2022 8:04 AM EST us Adonis Zafar DO LAB BLOOD ORDERABLES Final Res ult [facility] [address] [place] [address] * HIV 1, HIV 2 antibody screen, P24 antigen with reflex to differentiation (10/26/2021 2:27 PM EDT) HIV Combo AB/AG Negative/ Nonreacti ve Negative/ Nonreacti ve LAB CHEMISTRY METHOD 10/27/2021 5:14 PM EDT [facility] Blood Venous blood specimen / Unknown Venipuncture / Unknown 10/26/2021 2:27 PM EDT 10/26/2021 2:27 PM EDT Narrative [facility] - 10/27/2021 5:14 PM [...] 5. Only REACTIVE results are reported to [facility]. 6. REACTIVE results will be sent to our Reference Laboratory for HIV-1 AB, HIV-2 AB differentiation, and HIV-1 RNA detection by Site Monitor-Mediated Amplification (TMA) and if positive, quantitation by Real-Time PCR. Gale Howard NP LAB BLOOD ORDERABLES Final Res ult Performing Organization Address City/[facility]/ZIP Co de Phone Number [facility] [address] [place] [id number] * Hepatitis panel, acute (10/26/2021 2:27 PM [...] AM EDT Performed at: ??01 - [facility] [address] ??[id number] Molder Apprentice: Yahir Moss MD, Phone: ??[phone] Gale Howard NP LAB BLOOD ORDERABLES Final Res ult [facility] * (ABNORMAL) Lipid panel (10/26/2021 2:27 PM EDT) Pathologist [facility] Cholesterol 153 <200 mg/dL LAB CHEMISTRY METHOD 10/26/2021 4:[address] [facility] Triglycerides 157(H) <150 mg/dL LAB CHEMISTRY METHOD 10/26/2021 4:[address] [facility] HDL 49(L) >59 mg/dL LAB CHEMISTRY METHOD 10/26/2021 4:[address] [facility] Comment: <35 mg/dl is the cut-point for increased Coronary Heart Disease (CHD) risk. LDL Calculated 73 0 - 99 mg/dL LAB CHEMISTRY METHOD 10/26/2021 4:[address] [facility] VLDL Cholesterol Francisco 31.4(H) <=30 mg/dL LAB CHEMISTRY METHOD 10/26/2021 4:[address] [facility] Blood Venous blood specimen / Unknown Venipuncture / Unknown 10/26/2021 2:27 PM EDT 10/26/2021 2:27 PM EDT us Gale Howard NP LAB BLOOD ORDERABLES Final Res ult [facility] [address] [place] [address] * Cervical Cancer Screening: HPV (12/02/2019) Pathologist Count includes the [facility] Cervical Cancer Screening: HPV abstracted us Historical Provider HEALTH MAINTENANCE Final Result from Last 3 Months or Most Recently Relevant [place] [phone] MEDICARE Advance Directives * Full Code - [...] currently active code status orders. Care Teams Ornament Stapler Relationship Specialty Start Date End Date Physician, No Pcp PCP - General 02/02/22
--- OUTSIDE RECORDS SUMMARY | 2024-06-19 09:55 | XMS_ITS | Encounter Summary ---
Author Organization [facility] [place] [address] Care Team Providers Care Immigration Law Specialist Name Role Phone Unavailable Primary Care Provider Unavailabl e Encounter Details Date Type Department Care Team (Late st Contact Info) Description 12/11/2019 Hospital Encounter TH HISTORIC ENCOUNTERS EASTERN CONVERSION ONLY Selma Ace MD [address] [place] [address] Palpitations Social History Tobacco Use Types Packs/Day [...] encounter Results * Myocard Perf Spect Multiple [address] [facility] (12/11/2019 8:45 PM EDT) Anatomical Region Laterality Modality Other 12/11/2019 9:02 AM EDT Narrative 12/11/2019 8:45 PM EDT [facility] in Cardiology [address] [place], [place] ??[address] Regadenoson Stress Nuclear SPECT Report Name: ??TEJA DOUGLAS ?Exam Date: 12/11/2019 09:02 ?? Ordering Phys: SELMA ACE ?: ? 1970 ? Referring Phys:SELMA ACE Age: 49 ? Gender: F ? Ht (in):65 ??Wt (lb):163 BSA ??1.84 ?Technologist: ??JAM Procedure CPT: ?? 54198 Indications: ? Other chest pain ICD Codes: ? R07.89 Cardiac History: palpitations [facility] Appropriateness Criteria: Cardiac Medications: ?pravastatin, [...] pharmacological stress. Post Stress SPECT images were [id number] ?minutes past tracer injection. Technical Quality: ?? [...] Procedure Note Historical, Cardiovascular Results, - 07/08/2020 [facility]iology [address] [place] [address] Regadenoson Stress Nuclear SPECT Report Name: TEJA DOUGLAS Exam Date: 12/11/2019 09:02Ordering Phys: SELMA ACE : 1970Referring Phys:SELMA ACE Age: 49 Gender: F Ht (in):65 Wt (lb):163 BSA 1.84Technologist: FRANKIE Procedure CPT: 35576 Indications: Other chest pain ICD Codes: R07.89 Cardiac History: palpitations [facility] Appropriateness Criteria: Cardiac Medications: pravastatin, [...] injectedintravenously at rest. Resting SPECT images were [id number] minutes past injection. Post Stress Imagin.9 mCi of Tc-99m Sestamibi was injectedintravenously at peak pharmacological stress. Post Stress SPECT images were rvuyzfez27 minutes past tracerinjection. Technical Quality: Technically adequate [...]
== END 2024-06-19 10:22 | disposition home or self-care (01) ==
LOC: HO.HMCC 09:17
PROVIDERS: PCP Internal Medicine; Visit Provider Internal Medicine
DX: G58.8 Other specified mononeuropathies (principal); F33.41 Major depressive disorder, recurrent, in partial remission; F41.1 Generalized anxiety disorder; F11.20 Opioid dependence, uncomplicated; N39.46 Mixed incontinence; M54.6 Pain in thoracic spine; G89.29 Other chronic pain; F42.8 Other obsessive-compulsive disorder; R11.0 Nausea

== ENCOUNTER → 2024-06-19 09:16 | Outpatient (BNVA) | payer MEDICARE, MEDICAID, SELFPAY | PROVIDERS: PCP Internal Medicine; Visit Provider Internal Medicine | DX: G58.8 Other specified mononeuropathies (principal); F33.41 Major depressive disorder, recurrent, in partial remission; F41.1 Generalized anxiety disorder; F11.20 Opioid dependence, uncomplicated; N39.46 Mixed incontinence; M54.6 Pain in thoracic spine; G89.29 Other chronic pain; F42.8 Other obsessive-compulsive disorder; R11.0 Nausea | CPT/HCPCS: 99212 ==

== ENCOUNTER 2024-07-17 10:05 | Outpatient (AMB) | payer MEDICARE, MEDICAID, SELFPAY ==
[2024-07-17 10:07] VITALS: BP 144/82; PULSE 106; RESP 19; TEMP 36.6; O2SAT 97; BMI 18.5
--- NOTE | 2024-07-17 10:07 | A.OFFPC_ITS ---
Vital Signs 07/17/24 10:07 Height 5 ft 5 in Weight 111 lb 6 oz BMI 18.5 BP 144/82 H Blood Pressure Location Rt brachial Position Sitting Respiration 19 Pulse 106 H Pulse Source Pulse Oximeter Temp 98 F Temp Source Oral Pulse Oximetry (%) 97 Oxygen Delivery Method Room Air Intake Visit Reasons: 1m follow up Allergies cefazolin [From Anc] Allergy (Mild, Verified 07/17/24 10:11) Swelling Medication List - Last Reconciled 07/17/24 by Ciro White MD atorvastatin 80 mg PO QPM clopidogrel 75 mg PO DAILY [Diapers adult As directed] omeprazole 20 mg PO DAILY ondansetron HCl 4 mg PO ONCE PRN 90 days oxycodone 5 mg PO BID 30 days solifenacin 10 mg PO DAILY Tobacco use date assessed: 07/17/24 Dental Screening Dental Screen Date: 07/17/24 Did you have a dental visit in the last 12 months?: No Did you have a dental problem in the last 6 months where you did not have access to dental care?: No Was dental information given to patient?: Patient has dentist HPI 1m follow up HPI Details History - The patient is a 54-year-old female pr esenting with migraines. - The patient reports an increase in gomez marifer frequency, which has been exacerbated by recent emotional distress following the of her dog. The dog had been with her for 14 years and was euthanized on June 29 due to poor quality of life. - She has been crying frequently, which she believes may contribute to her migraine headaches. - The patient has experienced significan t difficulty obtaining her medical records from previous neurologist consultations, which has delayed potential treatment adjustments. - Additionally, the patient reports a hi gh frequency of urination over the past few days without further elaboration on urinary symptoms. - Emotional stress has been compounded b y family pressures and made more challenging by a lack of quality sleep, reported as three hours over four days, contributing to her overall state of exhaustion. - continued to take narcotic medication for the management of intercostal neuralgia Patient is established with therapist done psychiatrist and is taking medication for depression Social History: - The patient lives alone and reports a significant emotional attachment to her pet, whose has affected her emotional well-being. - Financial burden due to pet care, incl uding $250 per month for food and $90 per month for medications, was mentioned as a concern influencing future decisions about pet ownership. Problem List - Migraine - Depression - Urinary Frequency - intercostal neuralgia - grieving due to loss of dog - urinary incontinence Patient Instructions - Take provided paperwork to a [employer] upply store for processing. Pull ups - Complete a urine test at the lab - Collect and bring previous neurologist records in for the next appointment. - your controlled medications sent take it as prescribed - continue follow up with therapist and psychiatrist Review of Systems - General: No fever no chills - Neurological: no dizziness - Ear nose throat: No sore throat no hearing difficulty no ear pain - Cardiovascular: No syncope, no chest pain, no palpitations - Gastrointestinal: No nausea vomiting or diarrhea - Endocrine: No polydipsia no heat intolerance - Genitourinary: No dysuria , no blood in urine Physical Exam General: No acute distress HEENT: No acute findings Neck: Supple Respiratory system: Able to talk in full sentences, no audible wheeze Cardiovascular: S1-S2 regular in rate and rhythm Extremities: No new findings [employer] MAK[employer] HELPER MACHINE: Alert awake oriented x3 motor sensory intact Skin: Normal turgor PFSH Medical History Obsessive compulsive disorder Agoraphobia Personality disorder Anxiety and depression 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) Surgical History Hx of dilation and curettage Hx of knee surgery Hx of tonsillectomy Family History Father Heart attack Hypertension Mother Hypertension Social History Household Members Other:: mom Housing: Condominium Alcohol intake: never Patient Tobacco Use Status: Current everyday Tobacco user Tobacco use type: Cigarette Years Smoked: 32 years e-Cigarette/Vaping Use: Never Used Second Hand Smoke Exposure: No service: No Current occupational status: disabled Current occupational exposures/hazards: No Sexual orientation: Straight/Heterosexual Gender identity: Female Cognitive needs: No Hearing needs: No Vision needs: Yes Questionnaire Thrive Questionnaire Date Thrive assessed: 07/17/24 I am a: Patient What is your living situation today?: I have a steady place to live Within the past 12 months, did the food you bought not last and you didn't have the money to get more?: I choose not to answer this question Within the past 12 months, did you worry whether your food would run out before you got money to buy more?: Never true Do you have trouble paying for medicines?: No Do you have trouble getting transportation to medical appointments?: No Do you have trouble paying your heating and electricity bill?: No Do you have trouble taking care of your child, family member or friend?: No Do you have trouble with day-to-day activities such as bathing, preparing meals, shopping, managing finances, etc.?: No Are you currently unemployed and looking for a job?: No Are you interested in more education?: No Please select the resources that you would like help with: None Currently or been in a relationship where the following occur: No concerns reported THRIVE Score: 0 AUDIT C Alcohol Use Questionnaire (AUDIT-C) 1. How often do you have a drink containing alcohol?: Never 3. How often do you have six or more drinks on one occasion?: Never Total Score: 0 Score Reviewed/Action Taken: Yes FIFI-7 AMB Questionnaire FIFI-7 Date FIFI - 7 assessed: 02/28/24 Source: Developed by Drs. Dallas Keller, Cassie Frankel, Glynn Blackwell and colleagues, with an educational kane from [employer] Physical exam (Primary Care) Vital Signs: Last Vital Signs Temp 98 F 07/17/24 10:07 Pulse 106 H 07/17/24 10:07 Resp 19 07/17/24 10:07 BP 144/82 H 07/17/24 10:07 Pulse Ox 97 07/17/24 10:07 Oxygen Delivery Method Room Air 07/17/24 10:07 BMI result Body Mass Index 18.5 Tobacco/Smoking Status: Tobacco use Status Tobacco use date assessed 07/17/24 07/17/24 10:13 Patient Tobacco Use Status Current everyday Tobacco 07/17/24 10:09 Tobacco use type Cigarette 07/17/24 10:09 e-Cigarette/Vaping Use Never Used 07/17/24 10:09 Thrive Assessment: Date of Thrive Assessment Date Thrive assessed 07/17/24 07/17/24 10:13 Currently or been in a relationship where the following occur: No concerns reported Coding Level of Care Code Est Pt Level 5 (38319) Diagnoses Frequency of micturition R35.0 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 Recurrent major depressive disorder, in partial remission F33.41 Active/Remission status: in partial remission Anxiety, generalized F41.1 Narcotic dependency, continuous F11.20 Mixed stress and urge urinary incontinence N39.46 Urinary Incontinence type: mixed stress and urge incontinence Chronic primary pain of thoracic region M54.6; G89.29 Other obsessive-compulsive disorders F42.8 Obsessive-compulsive disorder type: other Grieving F43.21 Time Spent (min) 40 Comment Reviewing chart/labs/qacl-rz-pmib/coordination of care Assessment & Plan Assessment & Plan (1) Frequency of micturition: Code(s): R35.0 - Frequency of micturition Category: Medical (2) Intercostal neuralgia: Onset Date: Unknown Code(s): G58.8 - Other specified mononeuropathies Category: Medical (3) Major depression, recurrent: Code(s): F33.9 - Major depressive disorder, recurrent, unspecified Category: Medical Qualifiers: Active/Remission status: in partial remission Qualified Code(s): F33.41 - Major depressive disorder, recurrent, in partial remission (4) Anxiety, generalized: Code(s): F41.1 - Generalized anxiety disorder Category: Medical (5) Narcotic dependency, continuous: Code(s): F11.20 - Opioid dependence, uncomplicated Category: Medical (6) Urine incontinence: Comment: Chronic. With microscopic hematuria. Being followed by Urology Code(s): R32 - Unspecified urinary incontinence Category: Medical Qualifiers: Urinary Incontinence type: mixed stress and urge incontinence Qualified Code(s): N39.46 - Mixed incontinence (7) Chronic primary pain of thoracic region: Code(s): M54.6 - Pain in thoracic spine; G89.29 - Other chronic pain Category: Medical (8) Obsessive compulsive disorder: Code(s): F42.9 - Obsessive-compulsive disorder, unspecified Category: Medical Qualifiers: Obsessive-compulsive disorder type: other Qualified Code(s): F42.8 - Other obsessive-compulsive disorder (9) Grieving: Code(s): F43.21 - Adjustment disorder with depressed mood Category: Medical Plan History - The patient is a 54-year-old female presenting with migraines. - The patient reports an increase in migraine frequency, which has been exacerbated by recent emotional distress following the of her dog. The dog had been with her for 14 years and was euthanized on June 29 due to poor quality of life. - She has been crying frequently, which she believes may contribute to her migraine headaches. - The patient has experienced significant difficulty obtaining her medical records from previous neurologist consultations, which has delayed potential treatment adjustments. - Additionally, the patient reports a high frequency of urination over the past few days without further elaboration on urinary symptoms. - Emotional stress has been compounded by family pressures and made more challenging by a lack of quality sleep, reported as three hours over four days, contributing to her overall state of exhaustion. - continued to take narcotic medication for the management of intercostal neuralgia Patient is established with therapist done psychiatrist and is taking medication for depression Social History: - The patient lives alone and reports a significant emotional attachment to her pet, whose has affected her emotional well-being. - Financial burden due to pet care, including $250 per month for food and $90 per month for medications, was mentioned as a concern influencing future decisions about pet ownership. Problem List - Migraine - Depression - Urinary Frequency - intercostal neuralgia - grieving due to loss of dog - urinary incontinence - PTSD - OCD Patient Instructions - Take provided paperwork to a medical supply store for processing. Pull ups - Complete a urine test at the lab - Collect and bring previous neurologist records in for the next appointment. - your controlled medications sent take it as prescribed - continue follow up with therapist and psychiatrist Orders: Orders UA CC w/rflx Micro + Cult Today R35.0 - Frequency of micturition Medications: Refilled [Diapers adult] As directed 300 ea 6RF N39.46 - Mixed incontinence oxycodone Partial Fill upon patient request. 5 mg PO BID 60 tabs 0RF pain 30 days
--- OUTSIDE RECORDS SUMMARY | 2024-07-17 10:43 | XMS_ITS | Encounter Summary ---
Author Organization [place] [address] Care Team Providers Care Synchronizer Name Role Phone Frank Edmonds MD Primary Care Provider [phone] Encounter Details Date Type Department Care Team (Late st Contact Info) Description 06/15/2020 2:06 PM EDT Hospital Encounter [facility] [address] [place] [phone] Darinle Sanchez MD [address] [place] [address] Social History Tobacco Use Types [...] on filedocumented in this encounter Care Teams Synchronizer Relationship Specialty Start Date End Date Frank Edmonds MD [address] [phone] PCP - General 05/20/20 10/25/21 documented as of this encounter
== END 2024-07-17 10:36 | disposition home or self-care (01) ==
LOC: HO.HMCC 10:05
PROVIDERS: PCP Internal Medicine; Visit Provider Internal Medicine
DX: R35.0 Frequency of micturition (principal); G58.8 Other specified mononeuropathies; F33.41 Major depressive disorder, recurrent, in partial remission; F41.1 Generalized anxiety disorder; F11.20 Opioid dependence, uncomplicated; N39.46 Mixed incontinence; M54.6 Pain in thoracic spine; G89.29 Other chronic pain; F42.8 Other obsessive-compulsive disorder; F43.21 Adjustment disorder with depressed mood

== ENCOUNTER 2024-07-17 10:05 | Outpatient (REF) | payer MEDICARE, MEDICAID, SELFPAY ==
[2024-07-17 13:15] LABS: Appearance Urine Clear; Color Urine Yellow; Glucose Urine UA Negative (Negative); Leukocyte Esterase Urine Negative (Negative); Nitrite Urine Negative (Negative); PH 5.5 (5.0-9.0); UMIC TRIGGER UACC YES; Urine Blood Moderate (2+) (Negative); Urine Ketones Trace mg/dL (Negative); Urine Protein Negative (Neg-Trace)
[2024-07-17 13:18] LABS: Bacteria Urine 1+ (None Seen); Hyaline Casts Urine 0-2 /LPF (0-2); WBC Urine 0-5 /HPF (0-5)
== END 2024-07-17 10:06 | disposition home or self-care (01) ==
LOC: HO.HMGCLDS 10:05
PROVIDERS: PCP Internal Medicine; Visit Provider Internal Medicine
DX: R35.0 Frequency of micturition (principal); G43.909 Migraine, unspecified, not intractable, without status migrainosus; G58.8 Other specified mononeuropathies; F33.41 Major depressive disorder, recurrent, in partial remission; F41.1 Generalized anxiety disorder; F11.20 Opioid dependence, uncomplicated; N39.46 Mixed incontinence; M54.6 Pain in thoracic spine; G89.29 Other chronic pain; F42.8 Other obsessive-compulsive disorder; F43.21 Adjustment disorder with depressed mood
CPT/HCPCS: 81001; 99212

== ENCOUNTER 2024-07-23 08:02 | Outpatient (REF) | payer MEDICARE, MEDICAID, SELFPAY | END 2024-07-23 08:03 | disposition home or self-care (01) | LOC: HO.LAB 08:02 | PROVIDERS: PCP Internal Medicine | DX: Z13.89 Encounter for screening for other disorder (principal) | CPT/HCPCS: 87086 ==

== ENCOUNTER 2024-07-23 08:02 | Outpatient (AMB) | payer MEDICARE, MEDICAID, SELFPAY ==
[2024-07-23 08:07] VITALS: BP 110/70; PULSE 70; O2SAT 96; BMI 18.3
--- NOTE | 2024-07-23 08:07 | MHC.OFFWIV ---
Intake Vital Signs 07/23/24 08:07 Height 5 ft 5 in Weight 110 lb BMI 18.3 BP 110/70 Blood Pressure Location Lt brachial Position Sitting Pulse 70 Pulse Source Pulse Oximeter Pulse Oximetry (%) 96 Oxygen Delivery Method Room Air Intake Visit Reasons: EP Pain in different parts of body Intake Note: Patient here for entire abdomen pain that has been present for about 1 week. 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 - Symptoms started around the week of July 08, with increasing intensity. - Initially treated with nitrofurantoin for suspected UTI, but pain persists and has worsened over time. No culture done at that time. - Reports severe tenderness with minimal touch on lower back; pain radiates to shoulder blade, down arm, neck, and thigh. - Has chronic hematuria without known cause; denies kidney stones. - No fever, vomiting, diarrhea; headaches present. Moving bowels normally, urinating normally. - Daily pain medication regimen reduced, affecting pain management. - Emotional distress due to recent loss of pet acknowledged, but pain believed to be primarily physical. - History of intercostal neuralgia causing significant chest pain and disc issues, on pain contract for Oxy with PCP. Physical Exam General: Cooperative, healthy appearing, comfortable, no acute distress and well developed Orientation: Patient oriented x3 Limitations: No limitations Head: Normal to inspection Ears: Hearing grossly normal bilaterally Nose: Normal External nose present Face and sinus: Normal facial exam Eyes: Appearance normal, both eyes and all related structures Neck: Normal visual inspection and Yes full ROM Respiratory: Normal respiratory effort and able to speak in complete sentences. GI: normal BS, soft, TTP in epigastric, slight TTP throughout, + Patel's and - McBurneys Skin: No rashes or lesions noted Neuro: Patient oriented x3 Back: + CVA bilaterally Extremities: Normal to inspection [facility] Medical History Obsessive compulsive disorder Agoraphobia Personality disorder Anxiety and depression 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) Surgical History Hx of dilation and curettage Hx of knee surgery Hx of tonsillectomy Family History Father Heart attack Hypertension Mother Hypertension Social History Household Members Other:: mom Housing: Condominium Alcohol intake: never Patient Tobacco Use Status: Current everyday Tobacco user Tobacco use type: Cigarette Years Smoked: 32 years e-Cigarette/Vaping Use: Never Used Second Hand Smoke Exposure: No service: No Current occupational status: disabled Current occupational exposures/hazards: No Sexual orientation: Straight/Heterosexual Gender identity: Female Cognitive needs: No Hearing needs: No Vision needs: Yes Review of Systems Const All systems reviewed & are unremarkable except as noted in HPI and below Physical Exam Vital Signs: Last Vital Signs Pulse 70 07/23/24 08:07 BP 110/70 07/23/24 08:07 Pulse Ox 96 07/23/24 08:07 Oxygen Delivery Method Room Air 07/23/24 08:07 BMI result Body Mass Index 18.3 Assessment & Plan Assessment & Plan (1) Flank pain, acute: Code(s): R10.9 - Unspecified abdominal pain Plan: - UA today shows 3+ blood, 1+ bili and + keytones. Will send culture to be thorough. - Refer to emergency room for evaluation due to severity of pain, worsening. Called [facility] with expect. Spoke with Dr Chavez. - Discuss potential pain medication adjustment with PCP. Patient was informed and verbally consented to the use of an ambient scribe for clinic note documentation during this visit. Orders: Orders Urine Culture Today N39.0 - Urinary tract infection, site not specified XR KUB Today R10.9 - Unspecified abdominal pain Coding Level of Care Code Est Pt Level 5 (52434) Diagnoses Flank pain, acute R10.9
--- OUTSIDE RECORDS SUMMARY | 2024-07-23 08:07 | XMS_ITS | Encounter Summary ---
Author Organization [place] [address] Care Team Providers Care Credit Officer Name Role Phone Frank Edmonds MD Primary Care Provider Encounter Details Date Type Department Care Team (Late st Contact Info) Description 06/15/2020 2:06 PM EDT Hospital Encounter [facility] [address] [place] [phone] Darinel Sanchez MD [address] [place] [address] Social History Tobacco Use Types [...] on filedocumented in this encounter Care Teams Credit Officer Relationship Specialty Start Date End Date Frank Edmonds MD [address] [phone] PCP - General 05/20/20 10/25/21 documented as of this encounter
== END 2024-07-23 08:50 | disposition home or self-care (01) ==
PROVIDERS: PCP Internal Medicine; Visit Provider Physician Assistant
DX: R10.9 Unspecified abdominal pain (principal)

== ENCOUNTER 2024-07-23 10:48 | Emergency (ER) | payer MEDICARE, MEDICAID, SELFPAY ==
--- NOTE | ~2024-07-23 | CT_ITS ---
EXAMINATION: CT ABDOMEN AND PELVIS WITHOUT CONTRAST CLINICAL INFORMATION: Kidney stones. Flank pain COMPARISON: None available. TECHNIQUE: Multidetector volumetric imaging was performed from the superior aspect of the liver through the pubic symphysis. Sagittal and coronal reformatted images were obtained on the technologist's workstation. This CT examination was performed using dose optimization techniques as appropriate, variously including the following: *Automated exposure control *Adjustment of mA and/or kV according to patient size (this includes techniques or standardized protocols for targeted exams where dose is matched to indication/reason for exam; i.e. extremities or head) *Use of iterative reconstruction technique DLP: 414 mGy/cm. FINDINGS: LUNG BASES: The visualized lung bases are unremarkable. Heart size is normal. LIVER, GALLBLADDER, AND BILIARY TREE: The liver is normal in size, shape, and attenuation. No focal hepatic lesion or biliary ductal dilatation is present. The gallbladder is unremarkable with no evidence of radiopaque gallstones, gallbladder wall thickening, or obvious pericholecystic inflammatory changes. PANCREAS: Unremarkable. SPLEEN: Borderline splenomegaly measuring 15 cm in craniocaudad length ADRENAL GLANDS: Unremarkable. KIDNEYS AND URETERS: The kidneys are normal in size, shape, and attenuation. No hydronephrosis, hydroureter, or calculi seen. No perinephric stranding. BLADDER: Bladder is empty GASTROINTESTINAL TRACT: There is large amount of stool seen throughout the colon without distention. There is fluid-filled nondistended small bowel loops ABDOMINAL WALL: No significant hernia is appreciated. LYMPH NODES: Normal. VASCULAR: Unremarkable. PELVIC VISCERA: Unremarkable. OSSEOUS STRUCTURES: No aggressive lytic or sclerotic process. CT/CT abdomen pelvis wo IV con IMPRESSION: Moderate constipation. No colonic obstruction. No radiopaque urolith or hydroureteronephrosis. Fleischner guidelines were followed. Electronically signed by: Ankur Trejo MD 07/23/2024 04:33 PM EDT
--- NOTE | ~2024-07-23 | CT_ITS ---
EXAMINATION: CT CHEST WITHOUT CONTRAST CLINICAL INFORMATION: Rib pain. Rule out fracture. COMPARISON: None available. TECHNIQUE: Multidetector volumetric CT imaging of the chest was done. Axial MIP volume rendering provided. Sagittal and coronal reformatted images were obtained. This CT examination was performed using dose optimization techniques as appropriate, variously including the following: *Automated exposure control *Adjustment of mA and/or kV according to patient size (this includes techniques or standardized protocols for targeted exams where dose is matched to indication/reason for exam; i.e. extremities or head) *Use of iterative reconstruction technique DLP: 414 mGy/cm. FINDINGS: OSD CLERK: There is mild lower dorsal spine dextroscoliosis. The lungs are well-expanded LUNGS: There is diffuse centrilobular emphysema without acute pneumonic process. There is a 2.5 mm calcified no new right middle lobe. No additional nodules visualized. MEDIASTINUM: Thyroid lobes are symmetrical and normal. The central trachea and the bronchi are widely patent. The heart size and the great vessels are normal caliber. No abnormal size mediastinal or hilar lymph nodes seen. There is no pericardial effusion. The heart size is normal. CORONARY ARTERY CALCIFICATION: Mild/moderate coronary artery calcifications are present. PLEURA: There is no pleural effusion. No pleural mass or thickening. AXILLA: No lymphadenopathy. UPPER ABDOMEN: Visualized liver, spleen, pancreas and bilateral adrenal glands are unremarkable. OSSEOUS STRUCTURES: No aggressive lytic or sclerotic process seen CT/CT chest wo IV con IMPRESSION: No acute cardiopulmonary process seen on this exam. This is no visible rib fracture or chest wall hematoma. Fleischner guidelines were followed. Electronically signed by: Ankur Trejo MD 07/23/2024 04:47 PM EDT
--- NOTE | ~2024-07-23 | US_ITS ---
CLINICAL HISTORY: RUQ pain and tenderness US abdomen limited Comparison: CT/SR - CT ABDOMEN PELVIS WO IV CON - 07/23/24 15:57 EDT Findings: Normally distended gallbladder. No gallbladder wall thickening or pericholecystic fluid. No gallbladder sludge or gallstone. Bile ducts normal in caliber. IMPRESSION: 1. Normal gallbladder ultrasound. This document has been electronically signed by: Naresh Philip MD on 07/23/2024 23:37:14
[2024-07-23 11:40] VITALS: BP 118/72; PULSE 64; RESP 16; TEMP 36.1; O2SAT 97; BMI 18.3
--- NOTE | 2024-07-23 11:47 | ED_ITS ---
HPI - General Adult General Chief complaint: Abdominal Pain Stated complaint: L shoulder/arm pain, abd & back pain Time Seen by Provider: 07/23/24 20:25 History of Present Illness ED Provider: Anila LEMONS narrative: The patient is a 54-year-old woman with a history of chronic pain on chronic oxycodone. She says that she has had a lot of body pains over the last 2 weeks. These seemed to center primarily around her epigastrium and across her upper abdomen. She says that she also has pain in the left arm in the shoulder. The patient says that the pain that goes across the upper abdomen also radiates into both flanks and down both legs. No fever, sweats, chills. No nausea, vomiting, diarrhea. No shortness of breath. Related Data Previous Rx's ?Medication ?Instructions ?Recorded solifenacin 10 mg tablet 10 mg PO DAILY Urine incontinence 10/10/23 #30 tabs atorvastatin 80 mg tablet 80 mg PO QPM #90 tabs 12/14/23 clopidogrel 75 mg tablet 75 mg PO DAILY #90 tabs 01/22/24 ondansetron HCl 4 mg tablet 4 mg PO ONCE PRN nausea and 02/06/24 vomiting 90 days #90 tabs omeprazole 20 mg capsule,delayed 20 mg PO DAILY #90 caps 02/29/24 release Diapers adult #300 ea 07/17/24 oxycodone 5 mg tablet 5 mg PO BID pain 30 days #60 tabs 07/17/24 sucralfate 1 gram tablet 1 g PO TID PRN Upper abdominal 07/23/24 pain #60 tabs Allergies Allergy/AdvReac Type Severity Reaction Status Date / Time cefazolin [From [facility]] Allergy Mild Swelling Verified 07/23/24 11:42 Review of Systems 2 Review of Systems: Yes all other systems are reviewed and are negative [facility] Past Medical History Medical History Obsessive compulsive disorder Agoraphobia Personality disorder Anxiety and depression 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) Surgical History Hx of dilation and curettage Hx of knee surgery Hx of tonsillectomy Family History Family History Father Heart attack Hypertension Mother Hypertension Social History Social History Household Members Other:: mom Housing: Condominium Alcohol intake: never Patient Tobacco Use Status: Current everyday Tobacco user Tobacco use type: Cigarette Years Smoked: 32 years e-Cigarette/Vaping Use: Never Used Second Hand Smoke Exposure: No Advance Directives: No Advance Directives Information Provided: No service: No Current occupational status: disabled Current occupational exposures/hazards: No Sexual orientation: Straight/Heterosexual Gender identity: Female Cognitive needs: No Hearing needs: No Vision needs: Yes Physical Exam ED Vital Signs: Vital Signs - 24 hr 07/23/24 11:40 07/23/24 21:56 07/24/24 01:16 Temperature 97 F 98.1 F 97.8 F Pulse Rate 64 64 74 Respiratory Rate 16 16 16 Blood Pressure 118/72 144/85 H 0/0 L Pulse Oximetry 97 99 96 Oxygen Delivery Method Room Air Room Air Room Air 07/24/24 01:30 Temperature 97.8 F Pulse Rate 74 Respiratory Rate 16 Blood Pressure 0/0 L Pulse Oximetry 96 Oxygen Delivery Method Room Air BMI result Body Mass Index 18.3 Const Other: The patient is a slim 54-year-old woman who was awake and alert. She does not seem in obvious acute distress. Orientation/consciousness: patient oriented x3 HENMT Other: Face is symmetrical, mucous membranes moist Eyes General: appearance normal, both eyes and all related structures Neck Neck: Yes normal visual inspection, Yes full ROM and Yes no JVD Resp Effort & Inspection: normal respiratory effort Auscultation: clear to auscultation bilaterally Cardio Rate: regular rate Rhythm: regular rhythm Heart sounds: S1 normal heart sound present and S2 normal heart sound present GI Other: The abdomen is flat and soft. There seemed to be some right upper quadrant tenderness although when the patient was distracted it seemed less tender. Skin Other: Skin was dry and unremarkable Neuro General: patient oriented x3, gait normal, tone normal, moves all extremities, no focal motor deficits and CN's II-XI intact bilaterally Extrem Other: No peripheral edema, no calf swelling, no tenderness, no asymmetry Course Course Course Narrative: RME: 54 yold female sent from primary care pain clinic upper abdominal pain, left upper quadrant left shoulder left neck pain, right hip pain, right upper quadrant pain for the past couple of days. Patient states pain radiating to the back. Patient has generalized abdominal tenderness on palpation. Labs EKG ordered Medications Administered Discontinued Medications Generic Name Dose Route Start Last Admin Trade Name Selena PRN Reason Stop Dose Admin Ketorolac Tromethamine 30 mg 07/23/24 22:00 07/23/24 22:58 Ketorolac Tromethamine 30 Mg/Ml Vial IM 07/23/24 22:01 30 mg ONCE ONE Administration Oxycodone HCl 5 mg 07/23/24 22:00 07/23/24 22:58 Oxycodone Hcl Immed Release 5 Mg Tablet PO 07/23/24 22:01 5 mg ONCE ONE Administration Sucralfate 1 gm 07/23/24 23:55 07/24/24 01:01 Sucralfate Oral Suspension 1 Gm/10 Ml Oral.Susp PO 07/23/24 23:56 1 gm ONCE ONE Administration Medical Decision Making Medical Decision Making [facility] Narrative: The patient is a 54-year-old woman who presents for evaluation of multiple pains in her body. The primary pain seems to be pain across the upper abdomen but she is also complaining of pain in the left shoulder and pain in the back. Clinically the patient does not look unwell and her vital signs were unremarkable. EKG is unremarkable. At triage a noncontrast CT of the abdomen and chest was ordered. These were negative. When I saw her I also ordered an abdominal ultrasound to evaluate her gallbladder since he seemed to have some right upper quadrant tenderness and she said her primary pain was pain across her upper abdomen. This was negative. Labs are unremarkable. Overall I felt the patient was safe for discharge. Perhaps she has some degree of gastritis. She is already on Nexium. I will prescribe sucralfate to be used in addition. She should follow up with her PCP. Lab Data 07/23/24 12:01 07/23/24 12:01 Labs: Lab Results 07/23/24 Range/Units 12: WBC 5.8 (4.8-10.8) X10*3/uL RBC 4.51 (4.20-5.50) X10*6/uL Hgb 15.5 (12.0-16.0) g/dl Hct 46.3 (37.0-47.0) % MCV 102.7 H (80.0-98.0) fL MCH 34.4 H (27.0-33.0) pg MCHC 33.5 (31.0-35.0) g/dl RDW 14.7 (11.0-16.0) % Plt Count 218 (160-400) X10*3/uL MPV 10.6 (9.4-12.3) fL Immature Gran % (Auto) 0.2 (0.0-0.4) % Neut % (Auto) 49.9 (45-73) % Lymph % (Auto) 38.3 (20-40) % [place] % (Auto) 9.3 (2-11) % Eos % (Auto) 0.9 (0-4) % Baso % (Auto) 1.4 (0-2) % Lymph # (Auto) 2.2 (1.2-4.9) X10*3/uL [place] # (Auto) 0.5 (0.1-1.2) X10*3/uL Eos # (Auto) 0.1 (0.0-0.4) X10*3/uL Baso # (Auto) 0.1 (0.0-0.2) X10*3/uL Abs Immat Gran (auto) 0.01 (0.00-0.03) X10*3/uL Absolute Neuts (auto) 2.9 (2.0-8.3) x10*3/uL Absolute Nucleated RBC 0.000 (0.0-0.012) X10*3/uL Nucleated RBC % (auto) 0.0 (0.0-0.2) /100WBC PT 11.6 (10.9-12.4) SEC INR 1.0 (0.9-1.1) APTT 34.6 (26.0-36.8) SEC Sodium 141 (135-145) mmol/L Potassium 3.1 L D (3.3-5.1) mmol/L Chloride 105 (96-108) mmol/L Carbon Dioxide 28 (22-29) mmol/L Anion Gap 11 L (12-20) BUN 6 L (9-16) mg/dL Creatinine 0.59 (0.5-1.4) mg/dL Estim Creat Clear Calc 87.8 Estimated GFR > 60 Random Glucose 92 (60-115) mg/dL Calcium 9.9 (8.4-10.2) mg/dL Total Bilirubin 0.8 (0.0-1.0) mg/dL AST 24 (5-31) U/L ALT 9 (0-31) U/L Alkaline Phosphatase 67 (39-117) U/L Troponin I High Sens < 2.7 (<3.5-17.0) ng/L C-Reactive Protein < 0.10 (< or = 0.50) mg/dL Total Protein 6.6 (6.5-8.0) g/dL Albumin 4.5 (3.5-5.0) g/dL Lipase 7 L (8-78) U/L Beta HCG, Quant < 2 mIU/mL Urine Color Yellow Urine Appearance Clear Urine pH 6.5 (5.0-9.0) Ur Specific [place] 1.020 (1.005-1.025) Urine Protein Negative (Neg-Trace) mg/dL Urine Glucose (UA) Negative (Negative) mg/dL Urine Ketones Trace (Negative) mg/dL Urine Blood Small (1+) H (Negative) Urine Nitrite Negative (Negative) Ur Leukocyte Esterase Negative (Negative) Urine RBC 6-10 H (0-2) /HPF Urine WBC 0-5 (0-5) /HPF Ur Squamous Epith Cells 3-5 (0-2) /HPF Urine Bacteria Trace (None Seen) Hyaline Casts 0-2 (0-2) /LPF Urine Opiates Screen POSITIVE H (Not Detect) Ur Buprenorphine Scrn Not Detected (Not Detect) ng/mL Ur Oxycodone Screen Positive H (Not Detect) ng/mL Urine Methadone Screen Not Detected (Not Detect) ng/mL Urine Fentanyl Screen Not Detected (Not Detect) Ur Barbiturates Screen Not Detected (Not Detect) Ur Phencyclidine Scrn Not Detected (Not Detect) Ur Amphetamines Screen Not Detected (Not Detect) U Benzodiazepines Scrn Not Detected (Not Detect) Urine Cocaine Screen Not Detected (Not Detect) U Marijuana (THC) Screen Not Detected (Not Detect) Independent Interpretation I performed an independent interpretation of an: EKG Interpretation: EKG at 11 50 shows sinus rhythm with short DC at 60 beats per minute. There are nonspecific changes. No definite acute ischemic changes. Discharge Plan Discharge Clinical Impression: Upper abdominal pain Patient Disposition: Home, Self-Care Instructions: Gastritis (ED) Additional Instructions: Your testing in the emergency room today has been very reassuringly unremarkable. I have sent a prescription for medication called sucralfate that you may use on an as-needed basis for upper abdominal pain. I suspect some of your symptoms may be related to a condition known as ?gastritis?. Please continue your Nexium. Please make a follow up appointment with your regular doctor to discuss these symptoms further. Return to the emergency room if significantly worse. Prescriptions: New sucralfate 1 gram tablet 1 g PO TID PRN (Reason: Upper abdominal pain) Qty: 60 0RF No Action atorvastatin 80 mg tablet 80 mg PO QPM Qty: 90 0RF Rx Instructions: Must call for follow up appt for more refills clopidogrel 75 mg tablet 75 mg PO DAILY Qty: 90 0RF Rx Instructions: Please call and schedule appt you are over due. ondansetron HCl 4 mg tablet 4 mg PO ONCE PRN (Reason: nausea and vomiting) 90 Days Qty: 90 0RF omeprazole 20 mg capsule,delayed release(DR/EC) 20 mg PO DAILY Qty: 90 0RF solifenacin 10 mg tablet 10 mg PO DAILY Qty: 30 6RF (DME) Diapers adult Medium See Rx Instructions .Route .MEDSUPPLY Qty: 300 6RF Rx Instructions: As directed oxycodone 5 mg tablet 5 mg PO BID 30 Days Qty: 60 0RF Rx Instructions: Partial Fill upon patient request. Interventions: ED Discharge Assessment Last Done: 07/24/24 01:30 Discharge Date/Time: 07/24/24 01:30 Print Language: [place]guill[place]
--- NOTE | 2024-07-23 11:48 | ECG_ITS ---
Test Reason : abdominal pain, left shoulder pain Blood Pressure : */* mmHG Vent. Rate : 60 BPM Atrial Rate : 60 BPM P-R Int : 100 ms QRS Dur : 76 ms QT Int : 416 ms P-R-T Axes : -10 -21 -20 degrees QTcB Int : 416 ms Sinus rhythm with short WI Nonspecific T wave abnormality Abnormal ECG When compared with ECG of 07-Feb-2024 09:02, Nonspecific T wave abnormality, worse in Inferior leads Referred By: Allan Aleman Electronically Signed By: YUNIOR SHERMAN MD
[2024-07-23 12:12] LABS: MANUAL DIFF FLAG NO
[2024-07-23 12:14] LABS: Basophils Absolute Auto 0.1 X10*3/uL (0.0-0.2); Basophils Percent Auto 1.4 % (0-2); Eosinophils Absolute Auto 0.1 X10*3/uL (0.0-0.4); Eosinophils Percent Auto 0.9 % (0-4); Hematocrit 46.3 % (37.0-47.0); Hemoglobin 15.5 g/dl (12.0-16.0); Imm Gran Abs Auto 0.01 X10*3/uL (0.00-0.03); Imm Gran Pct Auto 0.2 % (0.0-0.4); Lymphocytes Absolute Auto 2.2 X10*3/uL (1.2-4.9); Lymphocytes Percent Auto 38.3 % (20-40); Mean Corpuscular HGB Conc 33.5 g/dl (31.0-35.0); Mean Corpuscular Hemoglobin 34.4 pg (27.0-33.0); Mean Corpuscular Volume 102.7 fL (80.0-98.0); Mean Platelet Volume 10.6 fL (9.4-12.3); Monocytes Absolute Auto 0.5 X10*3/uL (0.1-1.2); Monocytes Percent Auto 9.3 % (2-11); Neutrophils Absolute Auto 2.9 x10*3/uL (2.0-8.3); Neutrophils Percent Auto 49.9 % (45-73); Platelet Count 218 X10*3/uL (160-400); Red Blood Count 4.51 X10*6/uL (4.20-5.50); Red Cell Distribution Width 14.7 % (11.0-16.0); White Blood Count 5.8 X10*3/uL (4.8-10.8)
[2024-07-23 12:15] LABS: Appearance Urine Clear; Color Urine Yellow; Glucose Urine UA Negative (Negative); Leukocyte Esterase Urine Negative (Negative); Nitrite Urine Negative (Negative); PH 6.5 (5.0-9.0); UMIC TRIGGER UACC YES; Urine Blood Small (1+) (Negative); Urine Ketones Trace mg/dL (Negative); Urine Protein Negative (Neg-Trace)
[2024-07-23 12:17] LABS: Bacteria Urine Trace (None Seen); Hyaline Casts Urine 0-2 /LPF (0-2); WBC Urine 0-5 /HPF (0-5)
[2024-07-23 12:20] LABS: Prothrombin Time 11.6 SEC (10.9-12.4)
[2024-07-23 12:22] LABS: Partial Thromboplastin Time 34.6 SEC (26.0-36.8)
[2024-07-23 12:27] LABS: Amphetamine Screen Urine Not Detected (Not Detect); Barbiturates, Urine Not Detected (Not Detect); Benzodiazepines Screen Urine Not Detected (Not Detect); Buprenorphine Scr Not Detected (Not Detect); Cannabinoid Screen Urine Not Detected (Not Detect); Cocaine Screen Urine Not Detected (Not Detect); Fentanyl, urine Not Detected (Not Detect); Methadone Screen, Urine Not Detected (Not Detect); Opiate Screen Urine POSITIVE (Not Detect); Oxycodone Screen Urine Positive (Not Detect); Phencyclidine Screen Urine Not Detected (Not Detect)
[2024-07-23 12:30] LABS: Alanine Aminotransferase 9 U/L (0-31); Albumin Level 4.5 g/dL (3.5-5.0); Alkaline Phosphatase 67 U/L (39-117); Anion Gap 11 (12-20); Aspartate Amino Transferase 24 U/L (5-31); Bilirubin Total 0.8 mg/dL (0.0-1.0); Blood Urea Nitrogen 6 mg/dL (9-16); Calcium 9.9 mg/dL (8.4-10.2); Carbon Dioxide 28 mmol/L (22-29); Chloride 105 mmol/L (96-108); Creatinine Clr Calc Pharmacy 87.8; Estimated Glomerular Filt Rate > 60; Glucose Random 92 mg/dL (60-115); Lipase 7 U/L (8-78); Potassium 3.1 mmol/L (3.3-5.1); Sodium 141 mmol/L (135-145); Total Protein 6.6 g/dL (6.5-8.0)
[2024-07-23 12:45] LABS: HCG Quantitative < 2 mIU/mL
[2024-07-23 21:56] VITALS: BP 144/85; PULSE 64; RESP 16; TEMP 36.7; O2SAT 99
[2024-07-23 22:15] LABS: C Reactive Protein < 0.10 mg/dL (< or = 0.50)
[2024-07-23 22:27] LABS: Troponin-I High Sensitivity < 2.7 ng/L (<3.5-17.0)
[2024-07-23] MEDS: Ketorolac Tromethamine 30 MG/ML VIAL IM (22:58)
[2024-07-23] MEDS: oxyCODONE HCl Immed Release 5 MG TABLET PO (22:58)
[2024-07-24] MEDS: Sucralfate Oral Suspension 1 GM/10 ML ORAL.SUSP PO (01:01)
[2024-07-24 01:16] VITALS: BP 0/0; PULSE 74; RESP 16; TEMP 36.6; O2SAT 96
[2024-07-24 01:30] VITALS: BP 0/0; PULSE 74; RESP 16; TEMP 36.6; O2SAT 96
== END 2024-07-24 01:30 | disposition home or self-care (01) ==
PROVIDERS: Physician Assistant; Emergency Provider Emergency Medicine; PCP Internal Medicine
DX: R10.2 Pelvic and perineal pain (principal); M25.512 Pain in left shoulder; M54.50 Low back pain, unspecified; M54.6 Pain in thoracic spine; R94.31 Abnormal electrocardiogram [ECG] [EKG]; M79.605 Pain in left leg; M79.10 Myalgia, unspecified site; M79.604 Pain in right leg; Z51.81 Encounter for therapeutic drug level monitoring; Z79.899 Other long term (current) drug therapy
CPT/HCPCS: 36415; 71250; 74176; 76705; 80053; 80307; 81001; 81003; 83690; 84484; 84702; 85025; 85610; 85730; 86140; 87086; 93005; 96372; 99212; 99284; J1885

== ENCOUNTER → 2024-07-23 11:48 | Outpatient (BNV) | payer MEDICARE, MEDICAID, SELFPAY | PROVIDERS: Emergency Provider Emergency Medicine; PCP Internal Medicine; Visit Provider Internal Medicine Cardiovascular Disease | DX: R94.31 Abnormal electrocardiogram [ECG] [EKG] (principal); R10.9 Unspecified abdominal pain; M25.512 Pain in left shoulder | CPT/HCPCS: 93010 ==

== ENCOUNTER → 2024-07-23 15:40 | Outpatient (BNV) | payer MEDICARE, MEDICAID, SELFPAY | PROVIDERS: PCP Internal Medicine; Visit Provider Radiology Diagnostic Radiology | DX: K59.00 Constipation, unspecified (principal); R07.81 Pleurodynia | CPT/HCPCS: 71250; 74176 ==

== ENCOUNTER 2024-08-14 08:51 | Outpatient (AMB) | payer MEDICARE, MEDICAID, SELFPAY ==
--- OUTSIDE RECORDS SUMMARY | 2020-03-10 04:45 | XMS_ITS | Continuity of Care Document ---
Author Organization [facility] Address [address] [place] [address] Phone Care Team Providers Care Fuel Cell Assembler Name Role Phone Jennifer BUSH, FACS, FAAOA, [...] Copied on Encounter Office/Outpa tient Visit, Est [facility], [address] [place] [address], [address] [place] [address] , tel:[phone] Rodriguez Lump in throat (chief complaint) sore throat (chief complaint) Mass of epiglottisLaryngop haryngeal reflux (LPR)Dysphagia, unspecified typeAnxietyH/O heart artery stent 1 Jennifer Gusmana. [address] [place] [address], [id number], . tel:[phone] Specialist : Milind Finch MD, [address] [place] [address], [address]. tel:[phone] cialist: Miya Armendariz MD, [address] [facility] [address], [place], [address]. tel:[phone] cialist: Woodrow Bullock MD, [address] [place] [address], [address]. [phone] erring Provider: Frank Edmonds MD, Family Medicine [address] [place] [address], [address]. tel:[phone] [facility], [address] [place] [address], [address] [place] [address] , tel:[phone] Flex No Information 1 Flex Romeo. [address] [place] [address], [address] [place] [address], . tel:[phone] Referring Provider: Frank Edmonds MD, Family Medicine [address] [place] [address], [address]. tel:[phone] [facility], [address] [place] [address], [address] [place] [address] , tel:[phone] Aurora No Information 0 No Information Referring Provider: Frank Edmonds MD, Family Medicine [address] [place] [address], [address]. tel:[phone] Office/Outpa tient Visit, [facility], [address] [place] [address], [address] [place] [address] , [phone] Flex Dysphagia follow up (chief complaint) Current smokerDysphagia, unspecified typeAnxietyLaryngo pharyngeal reflux (LPR)Mass of epiglottis 0 Flex Romeo. [address] [place] [address], [id number], . tel:[phone] Specialist : Milind Finch MD, [address] [place] [address], [address]. tel:[phone] cialist: Miya Armendariz MD, [address] [place] [address], [address]. tel:[phone] cialist: Woodrow Bullock MD, [address] [place] [address], [address]. tel:[phone] erring Provider: Frank Edmonds MD, Family Medicine [address] [place] [address], [address]. tel:[phone] [facility], [address] [place] [address], [address] [place] [address] , tel:[phone] Patient Portal No Information 0 Jennifer Colón. [address] [place] [address], [address] [place] [address], . tel:[phone] Office/Outpa tient Visit, [facility], [address] [place] [address], [address] [place] [address] , tel:[phone] Simon Dysphagia (chief complaint) Dysphagia, unspecified typeLaryngopharyng eal reflux (LPR)AnxietyMass of epiglottisCurrent smoker 0 No Cork Insulation Installer : Milind Finch MD, [address] [place] [address], [address]. tel:[phone] cialist: Miya Armendariz MD, [address] [place] [address], [address]. tel:[phone] cialist: Woodrow Bullock MD, [address] [place] [address], [address]. tel:[phone] erring Provider: Frank Edmonds MD, Family Medicine [address] [place] [address], [address]. tel:[phone] Office/Outpa tient Visit, [facility], [address] [place] [address], [id number] , tel:[phone] Setzen Facial pain (chief complaint) Headache around the eyesTMJ derangementDeviate d nasal septumReferred otalgia of both ears Aug-0 3-201 8 Renny Capone. [address] [facility], [place], [place], [id number], . tel:[phone] Specialist : Milind Finch MD, [address] [place], [address]. tel:[phone] cialist: Miya Armendariz, [address] [facility] [address], [place], [address]. tel:[phone] cialist: Woodrow Bullock MD, [address] [facility] [address], [place], [address]. tel:[phone] erring Provider: Frank Edmonds MD, Family Medicine [address] [place] [address], [address]. tel:[phone] Family History Family Member Type Diagnosis Age At Onset Father Problem (finding) Heart disease Payers Payer name Insurance type Covered constitution party ID Authoriza tion(s) MEDICARE PART B [id number] Social History Type Description Quantity Date Captured [...] sore throat in the AM. She used [place] yesterday with relief. Stilhaving some difficulty swallowing pills (longstanding0. Reason For Referral Reason For Referral No Information Plan Of Treatment Date Type Action Status Goal Tobacco cessation counseling completed History Of Present Illness Encounter Date Complaint History Of Prese nt Illness Lump in throat The patient is a lso experiencing foreign body sensation in throat. The patient denies chest pain, cough, nausea, sore throat or vomiting. Additional information: She is using nexium and famotidine. She has tried sucralfate and it makes her feel nauseous so she stopped. sore throat Onset: 2 weeks a go. It occurs acutely. Pertinent negatives include chills, dyspnea, fever, not drinking, not eating, otalgia, rash and vomiting. Additional information: Notes some worsening sore throat in the AM. She used [place] yesterday with relief. Stil having some difficulty swallowing pills (longstanding0. Dysphagia follow up The symptoms are reported [...] weight gain or weight loss. Facial pain Elenita is a de lightful [...] are variable and intense. She saw an sieve grader tender who told her that her eyes were okay. There were no other new significant otolaryngological complaints. Facial pain Onset: gradual. 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 Additional information: Was in [facility] ER last week - left arm pain, numbness and weakness - severe migraine related. Imaging showed possible dental/sinus issue. Had prior left maxillary dental extraction, with bone erosion. Functional Status Date Functional Assessmen t No [...] have a normal upper endoscopy with her doll wig maker rooted hair several months ago. I will request records [...]
--- OUTSIDE RECORDS SUMMARY | 2020-06-15 14:06 | XMS_ITS | Encounter Summary ---
Author Organization [employer] [place] [address] Care Team Providers Care Necktie Maker Name Role Phone Frank Edmonds MD Primary Care Provider Encounter Details Date Type Department Care Team (Late st Contact Info) Description 06/15/2020 2:06 PM EDT Hospital Encounter [facility] PROS [address] [place] [phone] Darinel Sanchez MD [address] [place] [address] Social History Tobacco Use Types [...] on filedocumented in this encounter Care Teams Necktie Maker Relationship Specialty Start Date End Date Frank Edmonds MD [address] [place] [phone] PCP - General 05/20/20 10/25/21 documented as of this encounter
[2024-08-14 09:01] VITALS: BP 126/78; PULSE 82; TEMP 37.4; O2SAT 97; BMI 18.3
--- NOTE | 2024-08-14 09:01 | MHC.PC.OV ---
Vital Signs 08/14/24 09:01 Height 5 ft 5 in Weight 110 lb 4 oz BMI 18.3 BP 126/78 Blood Pressure Location Rt brachial Position Sitting Pulse 82 Pulse Source Pulse Oximeter Temp 99.3 F Temp Source Oral Pulse Oximetry (%) 97 Intake Visit Reasons: 1m follow up Hr Operations Advisor Required: No Is last menstrual period known: No Post menopausal: Yes Patient : No Allergies cefazolin (From Anc) Allergy (Mild, Verified 08/14/24 09:07) Swelling Medication List - Last Reconciled 08/14/24 by Ciro White MD atorvastatin 80 mg PO QPM clopidogrel 75 mg PO DAILY [Diapers adult As directed] omeprazole 20 mg PO DAILY oxycodone 5 mg PO BID 30 days solifenacin 10 mg PO DAILY sucralfate 1 g PO TID PRN Tobacco use date assessed: 08/14/24 Dental Screening Dental Screen Date: 07/17/24 HPI 1m follow up HPI Details - The patient is a 54-year-old female presenting with persistent pain in the entire trunk. - Reports the pain was severe enough to necessitate an emergency room visit; pain radiates to the shoulder blades and down the arm. - Emergency room visit included diagnostic imaging (e.g., scans and an ultrasound of the gallbladder) which revealed no apparent abnormalities. - Symptoms include gastrointestinal irregularities characterized by episodes of diarrhea followed by normal bowel movements or constipation. - Patient describes lifelong bowel irregularities with alternating diarrhea and constipation, which align with a diagnosis of Irritable Bowel Syndrome. - Recently experienced dizziness described as resembling inebriation, with worries about fainting, especially concerning during driving. Suffers from coronary artery disease She has seen Dr. Bruno extension service advisor in 2022 Note reviewed Myocardial perfusion imaging study 2019 with no ischemic findings. No wall motion abnormalities. Lexiscan perfusion study. Echocardiogram 2019 with LVEF 63%; normal right ventricular size and systolic function; normal atrial size and unremarkable valves. Aortic root normal in size. No pericardial effusion. Overall, stable coronary disease. Her chest pains are unlikely to be from the coronary disease based on the description and prior documentation. She is on long-term Plavix, and cardiology notes states that maybe continued She is to continue atorvastatin 80 mg daily Patient never went for follow-up after that She has recently seen Nephrology for electrolyte disturbances, it was thought that hypokalemia could be due to potassium losses from GI source including nausea and vomiting. Vomiting could have resulted in proton loss leading to metabolic alkalosis. Diuretic abuse should be considered. As per nephrology note Nephrology recommended to continue potassium supplement with electrolyte recheck every 3 weeks Social History: - Lives across the street from the medical facility. - Access to transportation is limited; financial strain limits use of services like Uber. - Resident of [place], previously lived in [place], where transportation access was more accommodating. - Reports variability in housing-related transportation assistance. Medications - Utilizing a prescribed medication for incontinence, seeking coverage for [employer] (size small, quantity preferences discussed). Diagnostic results - Emergency room tests included scans and an ultrasound of the gallbladder, none of which revealed any abnormalities. Stress The patient is experiencing significant stressors, including a recent loss of a pet, emotional challenges related to introducing a new pet, and transportation difficulties impacting specialist appointments. These stressors appear to manifest in dizziness and a feeling of imminent collapse. Past Psychiatric History The patient has been informed by a therapist that she is severely depressed, possibly exacerbated by the recent loss of a pet. She has not been able to established with a psychiatrist in spite of our recurrent help. Mental Health and Self Care The patient engages in therapy and is aware of her depression. She is also navigating difficult psychosocial challenges. She will meet with our behavior health coordinator again today We have provided her with numbers to call and book her own appointment with the Psychiatry but so far she has not. Social/Emotional The patient exhibits emotional distress likely linked with recent pet loss, unresolved depression, and new pet introduction, attempting to manage by spending time in solitude. These factors may contribute to the current depressive state. Home Environment - Home shared with family, including a mother, who recently brought a new pet, complicating the home dynamic following the loss of the patient's dog. Patient also have ongoing friction with mother Counseling During the conversation, I encouraged the patient to communicate ongoing logistical and emotional challenges, including transportation needs, via the patient portal. I suggested consult with therapist Estelle for additional mental health support. Problem List - Irritable Bowel Syndrome - Depressive Disorder - Incontinence - Dizziness - coronary artery disease - chronic sternal pain - narcotic dependence - electrolyte disturbance Patient Instructions - Monitor and record episodes of dizziness and seek immediate care if symptoms worsen. - Use dicyclomine for cramping until the painter supervisor appointment. - Follow up with the specialist appointments; arrange transportation with assistance from the emergency medicine medical director. - Utilize the patient portal to communicate and confirm medication script details. - Engage with available mental health resources for ongoing depression management. After leaving the office patient went to family daughter next door and got dizzy Return back stating that she feels she is going to pass out, we wanted to call the EMT so she can be taken to emergency room for evaluation but patient declined She called a friend who came in and picked the patient up to take her to her home. Review of Systems - General: No fever no chills - Neurological: Recurrent dizziness - Ear nose throat: No sore throat no hearing difficulty no ear pain - Cardiovascular : No syncope, no chest pain, ongoing palpitations off and on - Gastrointestinal: Ongoing abdominal cramping nausea sometimes vomiting and diarrhea - Endocrine: No polyuria polydipsia no heat intolerance - Genitourinary: No dysuria , no blood in urine Physical Exam General: No acute distress HEENT: No acute findings Neck: Supple Respiratory system: Able to talk in full sentences, no audible wheeze Cardiovascular: S1-S2 regular in rate and rhythm Gastrointestinal: Bowel sounds positive, generalized discomfort Extremities: no new findings INSTRUMENT ASSEMBLY SUPERVISOR: Alert awake oriented x3 motor sensory intact Skin: Normal turgor psychiatry: Answers appropriately, makes eye contact, reports feeling severely depressed, experiencing dizziness, and feeling like going to drop. But declined to go to emergency room [facility] Medical History Obsessive compulsive disorder Agoraphobia Personality disorder Anxiety and depression 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) Surgical History Hx of dilation and curettage Hx of knee surgery Hx of tonsillectomy Family History Father Heart attack Hypertension Mother Hypertension Social History Household Members Other:: mom Housing: Condominium Alcohol intake: never Patient Tobacco Use Status: Current everyday Tobacco user Tobacco use type: Cigarette Years Smoked: 32 years e-Cigarette/Vaping Use: Never Used Second Hand Smoke Exposure: No service: No Current occupational status: disabled Current occupational exposures/hazards: No Sexual orientation: Straight/Heterosexual Gender identity: Female Cognitive needs: No Hearing needs: No Vision needs: Yes Questionnaire PHQ-9 Over the last 2 weeks, how often have you been bothered by any of the following problems? 1. Little interest or pleasure in doing things: not at all 2. Feeling down, depressed, or hopeless: not at all 3. Trouble falling or staying asleep, or sleeping too much: not at all 4. Feeling tired or having little energy: not at all 5. Poor appetite or overeating: not at all 6. Feeling bad about yourself - or that you are a failure or have let yourself or your family down: not at all 7. Trouble concentrating on things, such as reading the newspaper or watching television: not at all 8. Moving or speaking so slowly that other people could have noticed. Or the opposite - being so fidgety or restless that you have been moving around a lot more than usual: not at all 9. Thoughts that you would be better off or of hurting yourself in some way: not at all Total score: 0 Depression Screening Interpretation: Negative Depression Screening Done: Yes 62882 - PHQ-9 Billing: Yes Source: Developed by Drs. Dallas Keller, Cassie Frankel, Glynn Blackwell and colleagues, with an educational kane from [employer]. Thrive Questionnaire Date Thrive assessed: 08/14/24 I am a: Patient What is your living situation today?: I have a steady place to live Within the past 12 months, did the food you bought not last and you didn't have the money to get more?: I choose not to answer this question Within the past 12 months, did you worry whether your food would run out before you got money to buy more?: Never true Do you have trouble paying for medicines?: No Do you have trouble getting transportation to medical appointments?: No Do you have trouble paying your heating and electricity bill?: No Do you have trouble taking care of your child, family member or friend?: No Do you have trouble with day-to-day activities such as bathing, preparing meals, shopping, managing finances, etc.?: No Are you currently unemployed and looking for a job?: No Are you interested in more education?: No Please select the resources that you would like help with: None Currently or been in a relationship where the following occur: No concerns reported THRIVE Score: 0 FIFI-7 AMB Questionnaire FIFI-7 Date FIFI - 7 assessed: 02/28/24 Source: Developed by Drs. Dallas Keller, Cassie Frankel, Glynn Blackwell and colleagues, with an educational kane from [employer]. Physical exam (Primary Care) Vital Signs: Last Vital Signs Temp 99.3 F 08/14/24 09:01 Pulse 82 08/14/24 09:01 BP 126/78 08/14/24 09:01 Pulse Ox 97 08/14/24 09:01 BMI result Body Mass Index 18.3 Tobacco/Smoking Status: Tobacco use Status Tobacco use date assessed 08/14/24 08/14/24 09:10 Patient Tobacco Use Status Current everyday Tobacco 08/14/24 09:10 Tobacco use type Cigarette 08/14/24 09:10 e-Cigarette/Vaping Use Never Used 08/14/24 09:10 PHQ-9: PHQ-9 Score PHQ-9: Total score 0 08/14/24 10:23 Depression Screening Interpretation: Negative Thrive Assessment: Date of Thrive Assessment Date Thrive assessed 08/14/24 08/14/24 09:10 Currently or been in a relationship where the following occur: No concerns reported Coding Level of Care Code Est Pt Level 5 (52186) Complex EM visit Add On G2211 Diagnoses 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 Recurrent major depressive disorder, in partial remission F33.41 Active/Remission status: in partial remission Other obsessive-compulsive disorders F42.8 Obsessive-compulsive disorder type: other Anxiety, generalized F41.1 Atherosclerotic cardiovascular disease I25.10 Chronic nausea R11.0 Electrolyte abnormality E87.8 Hypokalemia E87.6 Mixed stress and urge urinary incontinence N39.46 Urinary Incontinence type: mixed stress and urge incontinence Headache syndrome G44.89 Chronic idiopathic pain syndrome G89.29 Smokes 1 pack of cigarettes per day F17.210 Additional Codes PHQ-9 - 35912 - PHQ-9 Billing: Yes ([id number]) Time Spent (min) 41 Comment Reviewing charts/consultations/nohj-bj-idvo/coordination Assessment & Plan Assessment & Plan (1) Intercostal neuralgia: Code(s): G58.8 - Other specified mononeuropathies Category: Medical (2) Major depression, recurrent: Code(s): F33.9 - Major depressive disorder, recurrent, unspecified Category: Medical Qualifiers: Active/Remission status: in partial remission Qualified Code(s): F33.41 - Major depressive disorder, recurrent, in partial remission (3) Obsessive compulsive disorder: Code(s): F42.9 - Obsessive-compulsive disorder, unspecified Category: Medical Qualifiers: Obsessive-compulsive disorder type: other Qualified Code(s): F42.8 - Other obsessive-compulsive disorder (4) Anxiety, generalized: Code(s): F41.1 - Generalized anxiety disorder Category: Medical (5) Atherosclerotic cardiovascular disease: Code(s): I25.10 - Atherosclerotic heart disease of [place] coronary artery without angina pectoris Category: Medical (6) Chronic nausea: Code(s): R11.0 - Nausea Category: Medical (7) Electrolyte abnormality: Code(s): E87.8 - Other disorders of electrolyte and fluid balance, not elsewhere classified Category: Medical (8) Hypokalemia: Code(s): E87.6 - Hypokalemia Category: Medical (9) Urine incontinence: Comment: Chronic. With microscopic hematuria. Being followed by Urology Code(s): R32 - Unspecified urinary incontinence Category: Medical Qualifiers: Urinary Incontinence type: mixed stress and urge incontinence Qualified Code(s): N39.46 - Mixed incontinence (10) Headache syndrome: Code(s): G44.89 - Other headache syndrome Category: Medical (11) Chronic idiopathic pain syndrome: Code(s): G89.29 - Other chronic pain Category: Medical (12) Smokes 1 pack of cigarettes per day: Code(s): F17.210 - Nicotine dependence, cigarettes, uncomplicated Category: Social Hx Plan - The patient is a 54-year-old female presenting with persistent pain in the entire trunk. - Reports the pain was severe enough to necessitate an emergency room visit; pain radiates to the shoulder blades and down the arm. - Emergency room visit included diagnostic imaging (e.g., scans and an ultrasound of the gallbladder) which revealed no apparent abnormalities. - Symptoms include gastrointestinal irregularities characterized by episodes of diarrhea followed by normal bowel movements or constipation. - Patient describes lifelong bowel irregularities with alternating diarrhea and constipation, which align with a diagnosis of Irritable Bowel Syndrome. - Recently experienced dizziness described as resembling inebriation, with worries about fainting, especially concerning during driving. Suffers from coronary artery disease She has seen Dr. Bruno extension service advisor in 2022 Note reviewed Myocardial perfusion imaging study 2019 with no ischemic findings. No wall motion abnormalities. Lexiscan perfusion study. Echocardiogram 2019 with LVEF 63%; normal right ventricular size and systolic function; normal atrial size and unremarkable valves. Aortic root normal in size. No pericardial effusion. Overall, stable coronary disease. Her chest pains are unlikely to be from the coronary disease based on the description and prior documentation. She is on long-term Plavix, and cardiology notes states that maybe continued She is to continue atorvastatin 80 mg daily Patient never went for follow-up after that She has recently seen Nephrology for electrolyte disturbances, it was thought that hypokalemia could be due to potassium losses from GI source including nausea and vomiting. Vomiting could have resulted in proton loss leading to metabolic alkalosis. Diuretic abuse should be considered. As per nephrology note Nephrology recommended to continue potassium supplement with electrolyte recheck every 3 weeks Social History: - Lives across the street from the medical facility. - Access to transportation is limited; financial strain limits use of services like Uber. - Resident of [place], previously lived in [place], where transportation access was more accommodating. - Reports variability in housing-related transportation assistance. Medications - Utilizing a prescribed medication for incontinence, seeking coverage for [employer] (size small, quantity preferences discussed). Diagnostic results - Emergency room tests included scans and an ultrasound of the gallbladder, none of which revealed any abnormalities. Stress The patient is experiencing significant stressors, including a recent loss of a pet, emotional challenges related to introducing a new pet, and transportation difficulties impacting specialist appointments. These stressors appear to manifest in dizziness and a feeling of imminent collapse. Past Psychiatric History The patient has been informed by a therapist that she is severely depressed, possibly exacerbated by the recent loss of a pet. She has not been able to established with a psychiatrist in spite of our recurrent help. Mental Health and Self Care The patient engages in therapy and is aware of her depression. She is also navigating difficult psychosocial challenges. She will meet with our behavior health coordinator again today We have provided her with numbers to call and book her own appointment with the Psychiatry but so far she has not. Social/Emotional The patient exhibits emotional distress likely linked with recent pet loss, unresolved depression, and new pet introduction, attempting to manage by spending time in solitude. These factors may contribute to the current depressive state. Home Environment - Home shared with family, including a mother, who recently brought a new pet, complicating the home dynamic following the loss of the patient's dog. Patient also have ongoing friction with mother Counseling During the conversation, I encouraged the patient to communicate ongoing logistical and emotional challenges, including transportation needs, via the patient portal. I suggested consult with therapist Estelle for additional mental health support. Problem List - Irritable Bowel Syndrome - Depressive Disorder - Incontinence - Dizziness - coronary artery disease - chronic sternal pain - narcotic dependence - electrolyte disturbance Patient Instructions - Monitor and record episodes of dizziness and seek immediate care if symptoms worsen. - Use dicyclomine for cramping until the painter supervisor appointment. - Follow up with the specialist appointments; arrange transportation with assistance from the emergency medicine medical director. - Utilize the patient portal to communicate and confirm medication script details. - Engage with available mental health resources for ongoing depression management. After leaving the office patient went to family daughter next door and got dizzy Return back stating that she feels she is going to pass out, we wanted to call the EMT so she can be taken to emergency room for evaluation but patient declined She called a friend who came in and picked the patient up to take her to her home. Medications: New dicyclomine 20 mg PO BID 60 tabs 0RF 30 days Refilled oxycodone Partial Fill upon patient request. 5 mg PO BID 60 tabs 0RF pain 30 days
== END 2024-08-14 09:14 | disposition home or self-care (01) ==
LOC: HO.HMCC 08:52
PROVIDERS: PCP Internal Medicine; Visit Provider Internal Medicine
DX: I25.10 Atherosclerotic heart disease of native coronary artery without angina pectoris (principal); G58.8 Other specified mononeuropathies; F33.41 Major depressive disorder, recurrent, in partial remission; F42.8 Other obsessive-compulsive disorder; F41.1 Generalized anxiety disorder; R11.0 Nausea; E87.8 Other disorders of electrolyte and fluid balance, not elsewhere classified; E87.6 Hypokalemia; N39.46 Mixed incontinence; G44.89 Other headache syndrome; G89.29 Other chronic pain; F17.210 Nicotine dependence, cigarettes, uncomplicated

== ENCOUNTER → 2024-08-14 08:51 | Outpatient (BNVA) | payer MEDICARE, MEDICAID, SELFPAY | PROVIDERS: PCP Internal Medicine; Visit Provider Internal Medicine | DX: G58.8 Other specified mononeuropathies (principal); F33.41 Major depressive disorder, recurrent, in partial remission; F42.8 Other obsessive-compulsive disorder; F41.1 Generalized anxiety disorder; I25.10 Atherosclerotic heart disease of native coronary artery without angina pectoris; R11.0 Nausea; E87.8 Other disorders of electrolyte and fluid balance, not elsewhere classified; E87.6 Hypokalemia; N39.46 Mixed incontinence; G44.89 Other headache syndrome; G89.29 Other chronic pain; F17.210 Nicotine dependence, cigarettes, uncomplicated; Z71.6 Tobacco abuse counseling | CPT/HCPCS: 96127; 99212 ==

== ENCOUNTER 2024-10-08 09:37 | Outpatient (AMB) | payer MEDICARE, MEDICAID, SELFPAY ==
--- OUTSIDE RECORDS SUMMARY | 2019-11-25 | XMS_ITS | Encounter Summary ---
Author Organization [place] [address] Care Team Providers Care Nursery Supervisor Name Role Phone Unavailable Primary Care Provider Unavailabl e Encounter Details Date Type Department Care Team (Late st Contact Info) Description 11/25/2019 Hospital Encounter TH HISTORIC ENCOUNTERS EASTERN CONVERSION ONLY Selma Ace MD [address] [place] [address] Other chest pain Social History Tobacco Use [...] this encounter Results * TTE W/Doppler Complete [id number] [facility] (11/26/2019 10:09 AM EDT) Anatomical Region Laterality Modality Other 11/25/2019 8:17 AM EDT Narrative 11/26/2019 10:09 AM EDT [facility] in Cardiology [address] [place] [address] Transthoracic Echocardiogram Report Name: TEJA DOUGLAS Exam Date: 11/25/2019 08:17 Ordering Physician:SELMA ACE Age: 49 Gender: F Ht (in):65 Wt (lb): 168 Referring Physician:SHIRLEY WOLF BSA: 1.87 Pulmonary Specialist: TREVOR : 1970 BP (mmHg): 108 / 70 Exam Location: [facility] Type of Exam: Adult CPT's: 28369 Clinical Indications:OTHER CHEST PAIN / LIGHTHEADED / [...] Peak Gradient 22.28 mmHg Cullen Nelson MD, [facility] (Electronically Signed) Final Date: 26 November 2019 10:08 Procedure Note Historical, Cardiovascular Results, MD - 07/08/2020 [facility] in Cardiology [address] [place] [address] Transthoracic Echocardiogram Report Name: TEJA DOUGLAS Exam Date: 11/25/2019 08:17Ordering Physician:SELMA ACE Age: 49 Gender: F Ht (in):65 Wt (lb): 168Referring Physician:SHIRLEY WOLF BSA: 1.87Sonographer: TREVOR : 1970 BP (mmHg): 108 / 70 Exam Location: [facility] Type of Exam: Adult CPT's: 41802 Clinical Indications:OTHER CHEST PAIN / LIGHTHEADED / [...] E to A Ratio 1.85 TR Peak Cbcjimwq995.00 cm/ MV Deceleration Time 153.54 ms TR Peak Liokzthz05.28 mmHg Cullen Nelson MD, [facility] (Electronically Signed) Final Date: 26 November 2019 10:08 us Cardiovascular Results Historical CV HISTORIC AL CONV PROCEDURES Final Result * Stress Test Cardiac Tracing [address] [facility] (11/25/2019 7:37 PM EDT) Anatomical Region Laterality Modality Other 11/25/2019 9:09 AM EDT Narrative 11/25/2019 7:37 PM EDT [facility] in Cardiology [address] [place] [address] Stress Test Report Name: TEJA DOUGLAS Exam Date: 11/25/2019 09:09 Ordering Phys: SELMA ACE Exam Location: [facility] Referring Phys:SHIRLEY WOLF Age: 49 Gender: F Ht (in):65 Wt (lb):163 BSA 1.84 Technologist: anny edmondsno : 1970 Procedure CPT: 25954 Indications: Other chest pain, Palpitations, Other forms of dyspnea, Bradycardia, unspecified ICD-9 Codes: R07.89 R00.2 R06.09 R00.1 Patient History: chest pain, dyspnea, palpitations Medications: propanolol, pravastatin STRESS TEST Ovi Protocol Exercise Duration (min:sec):6:00 METS: 7.0 mets Resting HR (bpm):79 Resting BP (mmHg): 132 /78 MPHR: 147 Target HR: 7499 Peak HR (bpm): 134 Peak BP (mmHg): 152 /86 % MPHR: 77 Double Product:34051 BP Response: Normal blood pressure response during [...] Note Historical, Cardiovascular Results, MD - 07/08/2020 [facility] in Cardiology [address] [place] [address] Stress Test Report Name: TEJA DOUGLAS Exam Date: 11/25/2019 09:09Ordering Phys: SELMA ACE [facility]:SHIRLEY WOLF Age: 49 Gender: F Ht (in):65 Wt (lb):163 BSA 1.84Technologist: anny edmondson : 1970 Procedure CPT: 04918 Indications: Other chest pain, Palpitations, Other forms of dyspnea,Bradycardia, unspecified ICD-9 Codes: R07.89 R00.2 R06.09 R00.1 Patient History: chest pain, dyspnea, palpitations Medications: propanolol, pravastatin STRESS TEST Ovi Protocol Exercise Duration(min:sec):6:00 METS: 7.0 mets Resting HR (bpm):79 Resting BP (mmHg): 132 /78 MPHR: 147Target HR: 7499 Peak HR (bpm): 134 Peak BP (mmHg): 152 /86 % MPHR: 77Double Product:97124 BP Response: Normal blood pressure response during [...]
--- OUTSIDE RECORDS SUMMARY | 2019-12-11 | XMS_ITS | Encounter Summary ---
Author Organization [place] [address] Care Team Providers Care Photographic Engineer Name Role Phone Unavailable Primary Care Provider Unavailabl e Encounter Details Date Type Department Care Team (Late st Contact Info) Description 12/11/2019 Hospital Encounter TH HISTORIC ENCOUNTERS EASTERN CONVERSION ONLY Selma Ace MD [address] [place] [address] Palpitations Social History Tobacco Use Types Packs/Day [...] money to get more. Never true 10/14/2020 [facility] Answer Date Re corded How [...] encounter Results * Myocard Perf Spect Multiple 52582 [facility] (12/11/2019 8:45 PM EDT) Anatomical Region Laterality Modality Other 12/11/2019 9:02 AM EDT Narrative 12/11/2019 8:45 PM EDT [facility] in Cardiology [address] [place] [address] Regadenoson Stress Nuclear SPECT Report Name: TEJA DOUGLAS Exam Date: 12/11/2019 09:02 Ordering Phys: SELMA ACE : 1970 Referring Phys:SELMA ACE Age: 49 Gender: F Ht (in):65 Wt (lb):163 BSA 1.84 Technologist: FRANKIE Procedure CPT: 98572 Indications: Other chest pain ICD Codes: R07.89 Cardiac History: palpitations [facility] Appropriateness Criteria: Cardiac Medications: pravastatin, propranolol [...] intravenously at rest. Resting SPECT images were zydxmyyv95 minutes past injection. Post Stress Imagin.9 mCi of Tc-99m Sestamibi was injected intravenously at peak pharmacological stress. Post Stress SPECT images were gaftyyfk92 minutes past tracer injection. Technical Quality: Technically [...] Note Historical, Cardiovascular Results, MD - 07/08/2020 [facility] in Cardiology [address] [place] [address] Regadenoson Stress Nuclear SPECT Report Name: TEJA DOUGLAS Exam Date: 12/11/2019 09:02Ordering Phys: SELMA ACE : 1970Referring Phys:SELMA ACE Age: 49 Gender: F Ht (in):65 Wt (lb):163 BSA 1.84Technologist: FRANKIE Procedure CPT: 94626 Indications: Other chest pain ICD Codes: R07.89 Cardiac History: palpitations [facility] Appropriateness Criteria: Cardiac Medications: pravastatin, propranolol [...] injectedintravenously at rest. Resting SPECT images were fqhkpouy15 minutes past injection. Post Stress Imagin.9 mCi of Tc-99m Sestamibi was injectedintravenously at peak pharmacological stress. Post Stress SPECT images were axxpdzur90 minutes past tracerinjection. Technical Quality: Technically adequate [...]
--- OUTSIDE RECORDS SUMMARY | 2020-01-23 01:00 | XMS_ITS | Encounter Summary ---
Author Organization [employer] [address] Care Team Providers Care Stereoplotter Operator Name Role Phone Unavailable Primary Care Provider Unavailabl e Encounter Details Date Type Department Care Team (Latest Contact Info) Description 01/23/2020 Hospital Encounter TH HISTORIC ENCOUNTERS EASTERN CONVERSION ONLY Ruiz Simon PA [address] [place] [address] Other diseases of larynx Social History Tobacco [...] Associated Diagnosis Comments CT NECK W/CONT OP ([id number]) Routine 01/23/2020 8:49 AM EST documented in this encounter Results * CT NECK W/CONT OP ([id number]) (01/23/2020 8:49 AM EST) Anatomical Region Laterality Modality Computed Tomogra phy 01/23/2020 8:26 AM EST Narrative 01/23/2020 8:49 AM EST EXAMINATION: [phone] - CT NECK W/CONTRAST WORKING DIAGNOSIS: chest [...] Note Lavon Bartlett MD - 04/16/2020 EXAMINATION: [phone] - CT NECK W/CONTRAST WORKING DIAGNOSIS: chest [...]
--- OUTSIDE RECORDS SUMMARY | 2020-06-11 10:20 | XMS_ITS | Encounter Summary ---
Author Organization [place] [address] Care Team Providers Care Cane Piler Name Role Phone Frank Edmonds MD Primary Care Provider Encounter Details Date Type Department Care Team (Late st Contact Info) Description 06/11/2020 10:20 AM EDT Hospital Encounter [facility] [address] [facility]Note 3[facility] 2nd [place] [phone] Thaddeus De Anda MD [address] [place] [address] Social History Tobacco Use Types Packs/Day Years [...] money to get more. Never true 10/14/2020 [facility] Answer Date Re corded How [...] on filedocumented in this encounter Care Teams Cane Piler Relationship Specialty Start Date End Date Frank Edmonds MD [address] [address] PCP - General 05/20/20 10/25/21 documented as of this encounter
--- OUTSIDE RECORDS SUMMARY | 2020-06-15 14:06 | XMS_ITS | Encounter Summary ---
Author Organization [place] [address] Care Team Providers Care Slice Cutting Machine Operator Name Role Phone Frank Edmonds MD Primary Care Provider Encounter Details Date Type Department Care Team (Late st Contact Info) Description 06/15/2020 2:06 PM EDT Hospital Encounter [facility] PR[facility] [address] [place] [phone] Darinel Sanchez MD [address] [place] [address] Social History Tobacco Use Types [...] on filedocumented in this encounter Care Teams Slice Cutting Machine Operator Relationship Specialty Start Date End Date Frank Edmonds MD [address] [place] [phone] PCP - General 05/20/20 10/25/21 documented as of this encounter
--- OUTSIDE RECORDS SUMMARY | 2024-09-03 06:20 | XMS_ITS ---
Author Organization [facility] Address [address] [place] [phone] Care Team Providers Care Lip Cutter And Scorer Name Role Phone Christopher BUSH, Ciro Primary Care Provider Dallas Toney [phone] REASON FOR VISIT Patient presents today for abnormal weight loss Encounters Encounter Location Date Provider Diagnosis [facility] [address] [place] [phone] 09/03/2024 Dallas Groves Plan Of Treatment No Information Progress Notes * TEJA GONZALEZDOB:1970 (54 yo F)Acc No.[id number]:09/03/2024 Progress Notes Patient: TEJA DONATO Provider: Keely Groves MD :1970 A ge:54 Y S ex:Female Date:09/03/2024 Address:[address] [place] [address], [address], [id number] Pcp:Ciro White MD Subjective: * Chief Complaints: [...] Date: 09/03/2024 Generated for Pat mayberry/Tammy/Marieitting on: 10/08/2024 10:15 AM EDT
[2024-10-08 09:47] VITALS: BP 122/78; PULSE 73; O2SAT 97; BMI 17.8
--- NOTE | 2024-10-08 09:47 | MHC.PC.OV ---
Vital Signs 10/08/24 09:47 Height 5 ft 5 in Weight 107 lb BMI 17.8 BP 122/78 Blood Pressure Location Lt brachial Position Sitting Pulse 73 Pulse Source Pulse Oximeter Pulse Oximetry (%) 97 Oxygen Delivery Method Room Air Intake Visit Reasons: 1m follow up, resched Allergies cefazolin (From [facility]) Allergy (Mild, Verified 10/08/24 09:49) Swelling Medication List - Last Reconciled 10/08/24 by Ciro White MD [Adult pull-ups As directed] atorvastatin 80 mg PO QPM omeprazole 20 mg PO DAILY oxycodone 5 mg PO BID 30 days sertraline 25 mg PO DAILY solifenacin 10 mg PO DAILY Tobacco use date assessed: 08/14/24 Dental Screening Dental Screen Date: 07/17/24 HPI 1m follow up, resched HPI Details History The patient is a 54-year-old female presenting with depression and sleep disturbances. Depression: - The patient reports ongoing struggles with depression. - She started seeing a psychiatrist, identified as Tank at [facility] in [place]. - The patient began medication management with sertraline and anticipates starting an additional medication for sleep. - She reports a history of family members committing suicide, contributing to her concern and ongoing mental health challenges. Sleep Disturbances: - The patient experiences significant issues with sleep. - She previously tried trazodone at a dose of 50 mg, which resulted in adverse effects, such as feeling severely impaired for two days. - She plans to vegetable picker a new medication today, expected to aid both sleep and weight gain. Abdominal Pain: - The patient experienced a significant episode of pain leading to an emergency room visit in July; the exact cause of pain remains unknown. - An EKG from that visit showed sinus rhythm and some non-specific changes. - She has a history of gastritis leading to stomach inflammation. Coronary Artery Disease: - She has not seen her flight test data acquisition technician since November of last year. - She has coronary artery disease with three stents placed. - There were issues in attending follow-ups with her flight test data acquisition technician and prop and scenery maker due to transportation challenges. Medical History: - Depression - Coronary artery disease with placement of three coronary stents - Gastritis - Past event of significant abdominal pain with unknown cause - intercostal neuralgia - narcotic dependence Surgical History: - Placement of three coronary artery stents Medications: - Sertraline for depression - Atorvastatin 80 mg for cholesterol management - Trazodone (previously tried for sleep, discontinued due to side effects) - Omeprazole for gastric symptoms - Bladder medication - Oxycodone (ongoing insurance/pharmacy-related issues reported) Social History: - Lives with mother who recently acquired a [employer] dog named Kylee. - Experiences transportation difficulties, impacting ability to attend medical appointments. - Recently struggled with familial psychiatric events?multiple suicides within extended family. Family History: - Several family members have committed suicide (cousin?s daughter, patient?s half-brother, cousin?s sister). Problem List - Depression - Sleep disturbances - Coronary artery disease with coronary stents - history of Gastritis leading to emergency room visit in July of this year - intercostal neuralgia - narcotic dependence - lipid disorder - urine incontinence Diagnostic results - EKG: Sinus rhythm, short MA at 60 beats per minute, nonspecific changes noted during a hospital visit for severe pain. [place] [employer] - Tank (Psychiatrist at [facility]) - Piercing Artist ([place], not visited since November last year) Patient Instructions - Continue taking current medications as prescribed. - Follow up with the flight test data acquisition technician regularly due to coronary artery disease and presence of stents. - Utilize medical transport options available for attending appointments. - Stay in communication with psychiatrist to monitor effects of new medications. Follow-up 4 weeks for narcotic medication refill and re-evaluation Review of Systems General: No fever no chills neurological: No headaches no dizziness ear nose throat: No sore throat no hearing difficulty no ear pain cardiovascular: No syncope endocrine: No polyuria polydipsia no heat intolerance genitourinary: No dysuria skin: No new complaints Physical Exam general: No acute distress HEENT: No acute findings neck: Supple respiratory system: Able to talk in full sentences, no audible wheeze no stridor cardiovascular: S1-S2 RRR, sinus rhythm, short MA at 60 beats per minute, nonspecific changes gastrointestinal: No pain, some inflammation in the stomach (gastritis) extremities: No new findings DRY CLEANER APPRENTICE: Alert awake oriented x3 motor sensory intact skin: Normal turgor [facility] Medical History Obsessive compulsive disorder Agoraphobia Personality disorder Anxiety and depression 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) Surgical History Hx of dilation and curettage Hx of knee surgery Hx of tonsillectomy Family History Father Heart attack Hypertension Mother Hypertension Social History Household Members Other:: mom Housing: Condominium Alcohol intake: never Patient Tobacco Use Status: Current everyday Tobacco user Tobacco use type: Cigarette Years Smoked: 32 years e-Cigarette/Vaping Use: Never Used Second Hand Smoke Exposure: No service: No Current occupational status: disabled Current occupational exposures/hazards: No Sexual orientation: Straight/Heterosexual Gender identity: Female Cognitive needs: No Hearing needs: No Vision needs: Yes Questionnaire Thrive Questionnaire Date Thrive assessed: 02/28/24 I am a: Patient What is your living situation today?: I have a steady place to live Within the past 12 months, did the food you bought not last and you didn't have the money to get more?: I choose not to answer this question Within the past 12 months, did you worry whether your food would run out before you got money to buy more?: Never true Do you have trouble paying for medicines?: No Do you have trouble getting transportation to medical appointments?: No Do you have trouble paying your heating and electricity bill?: No Do you have trouble taking care of your child, family member or friend?: No Do you have trouble with day-to-day activities such as bathing, preparing meals, shopping, managing finances, etc.?: No Are you currently unemployed and looking for a job?: No Are you interested in more education?: No Please select the resources that you would like help with: None Currently or been in a relationship where the following occur: No concerns reported THRIVE Score: 0 FIFI-7 AMB Questionnaire FIFI-7 Date FIFI - 7 assessed: 02/28/24 Source: Developed by Drs. Dallas Keller, Cassie Frankel, Glynn Blackwell and colleagues, with an educational kane from [employer]. Physical exam (Primary Care) Vital Signs: Last Vital Signs Pulse 73 10/08/24 09:47 BP 122/78 10/08/24 09:47 Pulse Ox 97 10/08/24 09:47 Oxygen Delivery Method Room Air 10/08/24 09:47 BMI result Body Mass Index 17.8 Tobacco/Smoking Status: Tobacco use Status Tobacco use date assessed 08/14/24 10/08/24 09:51 Patient Tobacco Use Status Current everyday Tobacco 10/08/24 09:51 Tobacco use type Cigarette 10/08/24 09:51 e-Cigarette/Vaping Use Never Used 10/08/24 09:51 Thrive Assessment: Date of Thrive Assessment Date Thrive assessed 02/28/24 10/08/24 09:51 Currently or been in a relationship where the following occur: No concerns reported Coding Level of Care Code Est Pt Level 4 (29022) Complex EM visit Add On G2211 Diagnoses 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 Recurrent major depressive disorder, in partial remission F33.41 Active/Remission status: in partial remission Other obsessive-compulsive disorders F42.8 Obsessive-compulsive disorder type: other Anxiety, generalized F41.1 Atherosclerotic cardiovascular disease I25.10 Chronic nausea R11.0 Mixed stress and urge urinary incontinence N39.46 Urinary Incontinence type: mixed stress and urge incontinence Chronic idiopathic pain syndrome G89.29 Smokes 1 pack of cigarettes per day F17.210 Chronic narcotic dependence F11.20 Assessment & Plan Assessment & Plan (1) Intercostal neuralgia: Code(s): G58.8 - Other specified mononeuropathies Category: Medical (2) Major depression, recurrent: Code(s): F33.9 - Major depressive disorder, recurrent, unspecified Category: Medical Qualifiers: Active/Remission status: in partial remission Qualified Code(s): F33.41 - Major depressive disorder, recurrent, in partial remission (3) Obsessive compulsive disorder: Code(s): F42.9 - Obsessive-compulsive disorder, unspecified Category: Medical Qualifiers: Obsessive-compulsive disorder type: other Qualified Code(s): F42.8 - Other obsessive-compulsive disorder (4) Anxiety, generalized: Code(s): F41.1 - Generalized anxiety disorder Category: Medical (5) Atherosclerotic cardiovascular disease: Code(s): I25.10 - Atherosclerotic heart disease of [place] coronary artery without angina pectoris Category: Medical (6) Chronic nausea: Code(s): R11.0 - Nausea Category: Medical (7) Urine incontinence: Comment: Chronic. With microscopic hematuria. Being followed by Urology Code(s): R32 - Unspecified urinary incontinence Category: Medical Qualifiers: Urinary Incontinence type: mixed stress and urge incontinence Qualified Code(s): N39.46 - Mixed incontinence (8) Chronic idiopathic pain syndrome: Code(s): G89.29 - Other chronic pain Category: Medical (9) Smokes 1 pack of cigarettes per day: Code(s): F17.210 - Nicotine dependence, cigarettes, uncomplicated Category: Social Hx (10) Chronic narcotic dependence: Code(s): F11.20 - Opioid dependence, uncomplicated Category: Medical Plan History The patient is a 54-year-old female presenting with depression and sleep disturbances. Depression: - The patient reports ongoing struggles with depression. - She started seeing a psychiatrist, identified as Tank at [facility] in [place]. - The patient began medication management with sertraline and anticipates starting an additional medication for sleep. - She reports a history of family members committing suicide, contributing to her concern and ongoing mental health challenges. Sleep Disturbances: - The patient experiences significant issues with sleep. - She previously tried trazodone at a dose of 50 mg, which resulted in adverse effects, such as feeling severely impaired for two days. - She plans to vegetable picker a new medication today, expected to aid both sleep and weight gain. Abdominal Pain: - The patient experienced a significant episode of pain leading to an emergency room visit in July; the exact cause of pain remains unknown. - An EKG from that visit showed sinus rhythm and some non-specific changes. - She has a history of gastritis leading to stomach inflammation. Coronary Artery Disease: - She has not seen her flight test data acquisition technician since November of last year. - She has coronary artery disease with three stents placed. - There were issues in attending follow-ups with her flight test data acquisition technician and prop and scenery maker due to transportation challenges. Medical History: - Depression - Coronary artery disease with placement of three coronary stents - Gastritis - Past event of significant abdominal pain with unknown cause - intercostal neuralgia - narcotic dependence Surgical History: - Placement of three coronary artery stents Medications: - Sertraline for depression - Atorvastatin 80 mg for cholesterol management - Trazodone (previously tried for sleep, discontinued due to side effects) - Omeprazole for gastric symptoms - Bladder medication - Oxycodone (ongoing insurance/pharmacy-related issues reported) Social History: - Lives with mother who recently acquired a [employer] Chihuahua dog named Kylee. - Experiences transportation difficulties, impacting ability to attend medical appointments. - Recently struggled with familial psychiatric events?multiple suicides within extended family. Family History: - Several family members have committed suicide (cousin?s daughter, patient?s half-brother, cousin?s sister). Problem List - Depression - Sleep disturbances - Coronary artery disease with coronary stents - history of Gastritis leading to emergency room visit in July of this year - intercostal neuralgia - narcotic dependence - lipid disorder - urine incontinence Diagnostic results - EKG: Sinus rhythm, short MA at 60 beats per minute, nonspecific changes noted during a hospital visit for severe pain. [place] [employer] - Tank (Psychiatrist at [facility]) - Piercing Artist ([place], not visited since November last year) Patient Instructions - Continue taking current medications as prescribed. - Follow up with the flight test data acquisition technician regularly due to coronary artery disease and presence of stents. - Utilize medical transport options available for attending appointments. - Stay in communication with psychiatrist to monitor effects of new medications. Follow-up 4 weeks for narcotic medication refill and re-evaluation Medications: Refilled atorvastatin Must call for follow up appt for more refills 80 mg PO QPM 90 tabs 0RF omeprazole 20 mg PO DAILY 90 caps 0RF solifenacin 10 mg PO DAILY 90 tabs 1RF Urine incontinence oxycodone Partial Fill upon patient request. 5 mg PO BID 60 tabs 0RF pain 30 days
--- OUTSIDE RECORDS SUMMARY | 2024-10-08 10:15 | XMS_ITS | Clinical Summary ---
Author Organization [facility] Address [address] [place] [address] Phone Care Team Providers Care Packaging Sales Consultant Name Role Phone Physician, No Pcp Primary [...] Eye exam every 2 years Chronic myelopathy ([facility] V24, [facility] V28) Anxiousness 04/18/2021 History of percutaneous coronary intervention Coronary artery disease invo lving [place] heart without angina pectoris 11/19/2020 Assessment & [...] wks NSTEMI (non-ST elevated myoc ardial infarction) ([facility] V24, [facility] V28) 10/11/2020 Overview (10/12/2020): Added automatically from request for surgery [id number] Assessment & Plan (10/12/2020 3:40 PM EDT): - s/p cardiac cath-This is consistent with a nonhemodynamically significant stenosis. -AAC remains on consult -Troponins-0.015-->0.50-->0.651-->0.327 -tele monitor - Cardio requested CTA r/o PE, U/S bilateral lower legs- r/o DVT and ECHO -asa/plavix/toprol/lipitor Severe episode of recurrent major depressive disorder, without psychotic features ([facility] V24, [facility] V28) 08/26/2020 Somatoform disorder, unspecified 07/22/2020 Obsessive-compulsive disorder 07/22/2020 Episode of recurrent major d epressive disorder ([facility] V24) 07/22/2020 Breast neoplasm 04/01/2020 Panic disorder [...] your next appointment. Limit the use of inoj-zfk-ocfjjbh and prescription pain medications to 2 - [...] Yes. You might feel better if you: Lose weight (if you are overweight) Raise the head of your bed by 6 to 8 inches (for example, by putting blocks of wood or rubber under 2 legs of the bed or a Styrofoam wedge under the mattress) Avoid foods that make your symptoms worse (examples include coffee, chocolate, alcohol, peppermint, tomatoes, spicy foods, foods high in acid and fatty foods) Cut down on the amount of alcohol you drink (if you drink) Stop smoking (if you smoke) Avoid tight fitting clothing Eat a bunch of small meals each day, rather than 2 or 3 big meals Avoid lying down for at least 2-3 [...] urge urinary incontinence 08/23 Borderline personality disorder (CMS/[facility] V24, CM S/HCC V28) 08/22/2016 Temporomandibular joint disorder 08/22/2016 Dislocation [...] 11/26/2021 Cervico-occipital neuralgia 08/22/2016 11/26/2021 Chronic constipation 08/22/201611/26/ 022 Assessment & Plan (10/26/2021 1:11 PM [...] preservative (Fluzone; Afluria) 6mo and older 01/18/2016 [employer] SARS-CoV-2 COVID -19, vector-nr, rS-Ad26, preservative free [...] TONSILLECTOMY ADENOIDECTOMY, BILATERAL MYRINGOTOMY AND TUBES PROCEDURE: LA TONSILLECTOMY & ADENOIDECTOMY <AGE 12 OTHER SURGICAL HISTORY PROCEDURE: LA ARTHRS KNEE W/MENISCECTOMY MED&LAT W/SHAVING; COMMENT: left side OTHER SURGICAL HISTORY PROCEDURE: LA DILATION & CURETTAGE DX&/THER NONOBSTETRIC; COMMENT: 3 [...] 84 02/02/2022 10:59 AM EST Temperature 37.8 C (100.1 F) 02/02/2022 7:36 AM EST Respiratory Rate 16 02/02/2022 10:59 AM EST [...] Years (1 of 2 - PCV) 1991 Zoster Vaccines (1 of 2) 1991 Colorectal Cancer Screening: Colonoscopy 02/28/2019 Medicare Annual Wellness Visit 02/28/2019 Osteoporosis Screening (Bone Density Screening) 02/28/2019 Social Influencers of Health Screening 02/28/2019 COVID-19 Vaccine (2 - Arleen risk series) 08/05/2020 07/08/2020 Hypertension/CHF/CAD Annual BMP Blood Test 02/02/2023 02/02/2022, 11/29/2021, 11/22/2021, Additional history exists Depression Screening 02/14/2024 10/26/2021 Influenza Vaccine (#1) 2024 3, 11/14/2016, 01/18/2016 Cervical Cancer Screening: HPV [...] this topic Medical Devices Implanted Type Area Corporate Relations Director Device Identifier Shelf Expiration Date Model / [...] 8:[address] [facility] Potassium 3.1(L) 3.5 - 5.1 mmol/L [...] Effective November 21, 2021, calculation based on the Chronic Kidney Disease Epidemiology Collaboration (CKD-EPI) equation refit without adjustment for race. BUN/Creatinine Ratio 12.5 12.0 [...] [facility] [address] [place] [address] * HIV 1, HIV 2 antibody screen, P24 antigen with reflex to differentiation (10/26/2021 2:27 PM EDT) Pathologist [facility] HIV Combo AB/AG Negative/ Nonreacti ve Negative/ Nonreacti ve LAB CHEMISTRY METHOD 10/27/2021 5:[address] [facility] Blood Venous blood specimen / Unknown Venipuncture / Unknown 10/26/2021 2:27 PM EDT 10/26/2021 2:[address] [facility] - 10/27/2021 5:14 PM EDT [...] 5. Only REACTIVE results are reported to [facility]. 6. REACTIVE results will be sent to our Reference Laboratory for HIV-1 AB, HIV-2 AB differentiation, and HIV-1 RNA detection by Scoop Machine Operator-Mediated Amplification (TMA) and if positive, quantitation by Real-Time PCR. Gale Howard NP LAB BLOOD ORDERABLES Final Res ult [facility] [address] [place] [id number] * Hepatitis panel, acute (10/26/2021 2:27 PM [...] - 10/28/2021 4:05 AM EDT Performed at: 01 - [facility] [address] [id number] Still Operator: Yahir Moss MD, Phone: [phone] Gale Howard NP LAB BLOOD ORDERABLES Final [...] mg/dL LAB CHEMISTRY METHOD [facility] Cholesterol Francisco 31.4(H) <=30 mg/dL LAB CHEMISTRY METHOD [facility] Blood Venous blood specimen / Unknown Venipuncture / Unknown 10/26/2021 2:27 PM EDT 10/26/2021 2:27 PM EDT Gale Howard NP LAB BLOOD ORDERABLES Final Res ult [facility] [address] [place] [address] * Cervical Cancer Screening: HPV (12/02/2019) Pathologist [facility] Cervical Cancer Screening: HPV abstracted Historical [...] currently active code status orders. Care Teams Packaging Sales Consultant Relationship Specialty Start Date End Date Physician, No Pcp PCP - General 02/02/22
--- OUTSIDE RECORDS SUMMARY | 2024-10-08 10:15 | XMS_ITS | Patient Health Record ---
Author Organization [facility] Address [address] [place] [address] Care Team Providers Care Hood Maker Name Role Phone Christopher BUSH, Asma Primary Care Provider Dallas Toney [phone] Reason For Referral No Information Encounters Encounter Location Date Provider Diagnosis [facility] [address] [place] [address] 09/03/2024 Dallas Groves Plan Of Treatment No Information Insurance Providers Payer Name Payer Address Payer Phone Subscriber Number Group Number Insured Name Patient Relationship to Insured Coverage Start Date Coverage End Date MEDICARE OF [place] [address] [place] [id number] TEJA GONZALEZ Self - patient is the insured MEDICAID OF [facility] [address] [place] [address] [id number] TEJA GONZALEZ Self - patient is the insured
== END 2024-10-08 10:10 | disposition home or self-care (01) ==
LOC: HO.HMCC 09:38
PROVIDERS: PCP Internal Medicine; Visit Provider Internal Medicine
DX: G58.8 Other specified mononeuropathies (principal); F33.41 Major depressive disorder, recurrent, in partial remission; F42.8 Other obsessive-compulsive disorder; F11.20 Opioid dependence, uncomplicated; F41.1 Generalized anxiety disorder; I25.10 Atherosclerotic heart disease of native coronary artery without angina pectoris; R11.0 Nausea; N39.46 Mixed incontinence; G89.29 Other chronic pain; F17.210 Nicotine dependence, cigarettes, uncomplicated

== ENCOUNTER → 2024-10-08 09:37 | Outpatient (BNVA) | payer MEDICARE, MEDICAID, SELFPAY | PROVIDERS: PCP Internal Medicine; Visit Provider Internal Medicine | DX: G58.8 Other specified mononeuropathies (principal); F33.41 Major depressive disorder, recurrent, in partial remission; F42.8 Other obsessive-compulsive disorder; F41.1 Generalized anxiety disorder; R11.0 Nausea; I25.10 Atherosclerotic heart disease of native coronary artery without angina pectoris; N39.46 Mixed incontinence; G89.29 Other chronic pain; F11.20 Opioid dependence, uncomplicated; F17.210 Nicotine dependence, cigarettes, uncomplicated; Z71.6 Tobacco abuse counseling | CPT/HCPCS: 99212 ==

== ENCOUNTER 2024-11-06 09:00 | Outpatient (AMB) | payer MEDICARE, MEDICAID, SELFPAY ==
--- OUTSIDE RECORDS SUMMARY | 2019-11-25 | XMS_ITS | Encounter Summary ---
Author Organization [email or web address] [address] Care Team Providers Care Web Ui Designer Name Role Phone Unavailable Primary Care Provider Unavailabl e Encounter Details Date Type Department Care Team (Late st Contact Info) Description 11/25/2019 Hospital Encounter TH HISTORIC ENCOUNTERS EASTERN CONVERSION ONLY Selma Ace MD [address] [place] [address] Other chest pain Social History Tobacco Use [...] money to get more. Never true 10/14/2020 [facility] Answer Date Re corded How [...] this encounter Results * TTE W/Doppler Complete [id number] [facility] (11/26/2019 10:09 AM EDT) Anatomical Region Laterality Modality Other 11/25/2019 8:17 AM EDT Narrative 11/26/2019 10:09 AM EDT [facility] in Cardiology [address] [place] [address] Transthoracic Echocardiogram Report Name: TEJA DOUGLAS Exam Date: 11/25/2019 08:17 Ordering Physician:SELMA ACE Age: 49 Gender: F Ht (in):65 Wt (lb): 168 Referring Physician:SHIRLEY WOLF BSA: 1.87 Home Health Care Physician: TREVOR : 1970 BP (mmHg): 108 / 70 Exam Location: [facility] Type of Exam: Adult CPT's: 18072 Clinical Indications:OTHER CHEST PAIN / LIGHTHEADED / [...] Peak Gradient 22.28 mmHg Cullen Nelson MD, [facility] (Electronically Signed) Final Date: 26 November 2019 10:08 Procedure Note Historical, Cardiovascular Results, MD - 07/08/2020 [facility] in Cardiology [address] [place] [address] Transthoracic Echocardiogram Report Name: TEJA DOUGLAS Exam Date: 11/25/2019 08:17Ordering Physician:SELMA ACE Age: 49 Gender: F Ht (in):65 Wt (lb): 168Referring Physician:SHIRLEY WOLF BSA: 1.87Sonographer: TREVOR : 1970 BP (mmHg): 108 / 70 Exam Location: [facility] Type of Exam: Adult CPT's: 77406 Clinical Indications:OTHER CHEST PAIN / LIGHTHEADED / [...] E to A Ratio 1.85 TR Peak Wfigqawa761.00 cm/ MV Deceleration Time 153.54 ms TR Peak Mjjeikul53.28 mmHg Cullen Nelson MD, [facility] (Electronically Signed) Final Date: 26 November 2019 10:08 us Cardiovascular Results Historical CV HISTORIC AL CONV PROCEDURES Final Result * Stress Test Cardiac Tracing [id number] [facility] (11/25/2019 7:37 PM EDT) Anatomical Region Laterality Modality Other 11/25/2019 9:09 AM EDT Narrative 11/25/2019 7:37 PM EDT [facility] in Cardiology [address] [place] [address] Stress Test Report Name: TEJA DOUGLAS Exam Date: 11/25/2019 09:09 Ordering Phys: SELMA ACE Exam Location: [facility] Referring Phys:SHIRLEY WOLF Age: 49 Gender: F Ht (in):65 Wt (lb):163 BSA 1.84 Technologist: anny edmondson : 1970 Procedure CPT: 56230 Indications: Other chest pain, Palpitations, Other forms of dyspnea, Bradycardia, unspecified ICD-9 Codes: R07.89 R00.2 R06.09 R00.1 Patient History: chest pain, dyspnea, palpitations Medications: propanolol, pravastatin STRESS TEST Ovi Protocol Exercise Duration (min:sec):6:00 METS: 7.0 mets Resting HR (bpm):79 Resting BP (mmHg): 132 /78 MPHR: 147 Target HR: 7499 Peak HR (bpm): 134 Peak BP (mmHg): 152 /86 % MPHR: 77 Double Product:99065 BP Response: Normal blood pressure response during [...] Note Historical, Cardiovascular Results, MD - 07/08/2020 [facility] in Cardiology [address] [place] [address] Stress Test Report Name: TEJA DOUGLAS Exam Date: 11/25/2019 09:09Ordering Phys: SELMA ACE [facility]am [facility]erring Phys:SHIRLEY WOLF Age: 49 Gender: F Ht (in):65 Wt (lb):163 BSA 1.84Technologist: anny edmondson : 1970 Procedure CPT: 65433 Indications: Other chest pain, Palpitations, Other forms of dyspnea,Bradycardia, unspecified ICD-9 Codes: R07.89 R00.2 R06.09 R00.1 Patient History: chest pain, dyspnea, palpitations Medications: propanolol, pravastatin STRESS TEST Ovi Protocol Exercise Duration(min:sec):6:00 METS: 7.0 mets Resting HR (bpm):79 Resting BP (mmHg): 132 /78 MPHR: 147Target HR: 7499 Peak HR (bpm): 134 Peak BP (mmHg): 152 /86 % MPHR: 77Double Product:49788 BP Response: Normal blood pressure response during [...]
--- OUTSIDE RECORDS SUMMARY | 2019-12-11 | XMS_ITS | Encounter Summary ---
Author Organization [place] [address] Care Team Providers Care Harbor Master Name Role Phone Unavailable Primary Care Provider Unavailabl e Encounter Details Date Type Department Care Team (Late st Contact Info) Description 12/11/2019 Hospital Encounter TH HISTORIC ENCOUNTERS EASTERN CONVERSION ONLY Selma Ace MD [address] [place] [address] Palpitations Social History Tobacco Use Types Packs/Day [...] money to get more. Never true 10/14/2020 [facility] Answer Date Re corded How [...] encounter Results * Myocard Perf Spect Multiple 40399 [facility] (12/11/2019 8:45 PM EDT) Anatomical Region Laterality Modality Other 12/11/2019 9:02 AM EDT Narrative 12/11/2019 8:45 PM EDT [facility] in Cardiology [address] [place] [address] Regadenoson Stress Nuclear SPECT Report Name: TEJA DOUGLAS Exam Date: 12/11/2019 09:02 Ordering Phys: SELMA ACE : 1970 Referring Phys:SELMA ACE Age: 49 Gender: F Ht (in):65 Wt (lb):163 BSA 1.84 Technologist: FRANKIE Procedure CPT: 66017 Indications: Other chest pain ICD Codes: R07.89 Cardiac History: palpitations [facility] Appropriateness Criteria: Cardiac Medications: pravastatin, propranolol er [...] intravenously at rest. Resting SPECT images were fgxqvfop43 minutes past injection. Post Stress Imagin.9 mCi of Tc-99m Sestamibi was injected intravenously at peak pharmacological stress. Post Stress SPECT images were qzorjjjy99 minutes past tracer injection. Technical Quality: Technically [...] Note Historical, Cardiovascular Results, MD - 07/08/2020 [facility] in Cardiology [address] [place] [address] Regadenoson Stress Nuclear SPECT Report Name: TEJA DOUGLAS Exam Date: 12/11/2019 09:02Ordering Phys: SELMA ACE : 1970Referring Phys:SELMA ACE Age: 49 Gender: F Ht (in):65 Wt (lb):163 BSA 1.84Technologist: FRANKIE Procedure CPT: 32027 Indications: Other chest pain ICD Codes: R07.89 Cardiac History: palpitations [facility] Appropriateness Criteria: Cardiac Medications: pravastatin, propranolol er [...] pharmacological stress. Post Stress SPECT images were yzetyakz37 minutes past tracerinjection. Technical Quality: Technically adequate [...]
--- OUTSIDE RECORDS SUMMARY | 2020-01-23 01:00 | XMS_ITS | Encounter Summary ---
Author Organization [place] [address] Care Team Providers Care Court Assistant Name Role Phone Unavailable Primary Care Provider Unavailabl e Encounter Details Date Type Department Care Team (Latest Contact Info) Description 01/23/2020 Hospital Encounter TH HISTORIC ENCOUNTERS EASTERN CONVERSION ONLY Ruiz Simon PA [address] [place] [address] Other diseases of larynx Social History Tobacco [...] money to get more. Never true 10/14/2020 [facility] Answer Date Re corded How [...] Associated Diagnosis Comments CT NECK W/CONT OP ([id number]) Routine 01/23/2020 8:49 AM EST documented in this encounter Results * CT NECK W/CONT OP ([id number]) (01/23/2020 8:49 AM EST) Anatomical Region Laterality Modality Computed Tomogra phy 01/23/2020 8:26 AM EST Narrative 01/23/2020 8:49 AM EST EXAMINATION: [phone] - CT NECK W/CONTRAST WORKING DIAGNOSIS: chest [...] Note Lavon Bartlett MD - 04/16/2020 EXAMINATION: [phone] - CT NECK W/CONTRAST WORKING DIAGNOSIS: chest [...]
--- OUTSIDE RECORDS SUMMARY | 2020-03-10 04:45 | XMS_ITS | Continuity of Care Document ---
Author Organization [facility] Address [address] [place] [address] Phone Care Team Providers Care Housekeeper/Custodian/Laundry Worker Name Role Phone Jennifer BUSH, FACS, FAAOA, [...] Copied on Encounter Office/Outpa tient Visit, Est [facility], [address] [place] [address], [address] [place] [address] , tel:[phone] Rodriguez Lump in throat (chief complaint) sore throat (chief complaint) Mass of epiglottisLaryngop haryngeal reflux (LPR)Dysphagia, unspecified typeAnxietyH/O heart artery stent 1 Jennifer Gusmana. [address] [place] [address], [id number], . tel:[phone] Specialist : Milind Finch MD, [address] [place] [address], [address]. tel:[phone] cialist: Miya Armendariz MD, [address] [facility] [address], [place], [address]. tel:[phone] cialist: Woodrow Bullock MD, [address] [place] [address], [address]. [phone] erring Provider: Frank Edmonds MD, Family Medicine [address] [place] [address], [address]. tel:[phone] [facility], [address] [place] [address], [address] [place] [address] , tel:[phone] Flex No Information 1 Flex Romeo. [address] [place] [address], [address] [place] [address], . tel:[phone] Referring Provider: Frank Edmonds MD, Family Medicine [address] [place] [address], [address]. tel:[phone] [facility], [address] [place] [address], [address] [place] [address] , tel:[phone] Aurora No Information 0 No Information Referring Provider: Frank Edmonds MD, Family Medicine [address] [place] [address], [address]. tel:[phone] Office/Outpa tient Visit, [facility], [address] [place] [address], [address] [place] [address] , tel:[phone] Flex Dysphagia follow up (chief complaint) Current smokerDysphagia, unspecified typeAnxietyLaryngo pharyngeal reflux (LPR)Mass of epiglottis 0 Flex Romeo. [address] [place] [address], [id number], . tel:[phone] Specialist : Milind Finch MD, [address] [place] [address], [address]. tel:[phone] cialist: Miya Armendariz MD, [address] [place] [address], [address]. tel:[phone] cialist: Woodrow Bullock MD, [address] [place] [address], [address]. tel:[phone] erring Provider: Frank Edmonds MD, Family Medicine [address] [place] [address], [address]. tel:[phone] [facility], [address] [place] [address], [address] [place] [address] , tel:[phone] Patient Portal No Information 0 Jennifer Colón. [address] [place] [address], [address] [place] [address], . tel:[phone] Office/Outpa tient Visit, [facility], [address] [place] [address], [address] [place] [address] , tel:[phone] Simon Dysphagia (chief complaint) Dysphagia, unspecified typeLaryngopharyng eal reflux (LPR)AnxietyMass of epiglottisCurrent smoker 0 No Migratory Worker : Milind Finch MD, [address] [place] [address], [address]. tel:[phone] cialist: Miya Armendariz MD, [address] [place] [address], [address]. tel:[phone] cialist: Woodrow Bullock MD, [address] [place] [address], [address]. tel:[phone] erring Provider: Frank Edmonds MD, Family Medicine [address] [place] [address], [address]. tel:[phone] Office/Outpa tient Visit, [facility], [address] [place] [address], [id number] , tel:[phone] Setzen Facial pain (chief complaint) Headache around the eyesTMJ derangementDeviate d nasal septumReferred otalgia of both ears Aug-0 3-201 8 Renny Capone. [address] [facility], [place], [id number], . tel:[phone] Specialist : Milind Finch MD, [address] [place], [address]. tel:[phone] cialist: Miya Armendariz, [address] [facility] [address], [place], [address]. tel:[phone] cialist: Woodrow Bullock MD, [address] [facility] [address], [place], [address]. tel:[phone] erring Provider: Frank Edmonds MD, Family Medicine [address] [place] [address], [address]. tel:[phone] Family History Family Member Type Diagnosis Age At Onset Father Problem (finding) Heart disease Payers Payer name Insurance type Covered alliance party ID Authoriza tion(s) MEDICARE PART B [id number] Social History Type Description Quantity Date Captured [...] sore throat in the AM. She used [place] yesterday with relief. Stilhaving some difficulty swallowing [...] sore throat in the AM. She used [place] yesterday with relief. 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 Additional information: Was in [facility] ER last week - left arm pain, [...] are variable and intense. 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 I will request records [...]
--- OUTSIDE RECORDS SUMMARY | 2020-06-11 10:20 | XMS_ITS | Encounter Summary ---
Author Organization [employer] [place] [address] Care Team Providers Care Medical Device Assembler Name Role Phone Frank Edmonds MD Primary Care Provider Encounter Details Date Type Department Care Team (Late st Contact Info) Description 06/11/2020 10:20 AM EDT Hospital Encounter [facility] [address] [facility] 2nd [place] [phone] Thaddeus De Anda MD [address] [place] [address] Social History Tobacco Use Types Packs/Day Years [...] on filedocumented in this encounter Care Teams Medical Device Assembler Relationship Specialty Start Date End Date Frank Edmonds MD [address] [address] PCP - General 05/20/20 10/25/21 documented as of this encounter
--- OUTSIDE RECORDS SUMMARY | 2020-06-15 14:06 | XMS_ITS | Encounter Summary ---
Author Organization [email or web address] [address] Care Team Providers Care Machine Hose Cutter Name Role Phone Frank Edmonds MD Primary Care Provider Encounter Details Date Type Department Care Team (Late st Contact Info) Description 06/15/2020 2:06 PM EDT Hospital Encounter [facility] PROS [address] [place] [phone] Darinel Sanchez MD [address] [place] [address] Social History Tobacco Use Types [...] money to get more. Never true 10/14/2020 [facility] Answer Date Re corded How [...] on filedocumented in this encounter Care Teams Machine Hose Cutter Relationship Specialty Start Date End Date Frank Edmonds MD [address] [place] [phone] PCP - General 05/20/20 10/25/21 documented as of this encounter
--- OUTSIDE RECORDS SUMMARY | 2024-09-03 06:20 | XMS_ITS ---
Author Organization [facility] Address [address] [place] [phone] Care Team Providers Care Elementary [employer] Director Name Role Phone Christopher BUSH, Ciro Primary Care Provider Dallas Toney [phone] REASON FOR VISIT Patient presents today for abnormal weight loss Encounters Encounter Location Date Provider Diagnosis [facility] [address] [place] [phone] 09/03/2024 Dallas Groves Plan Of Treatment No Information Progress Notes * TEJA GONZALEZDOB:1970 (54 yo F)Acc No.[id number]:09/03/2024 Progress Notes Patient: TEJA DONATO Provider: Keely Groves MD :1970 A ge:54 Y S ex:Female Date:09/03/2024 Address:[address] [place] [address], [address], [id number] Pcp:Ciro White MD Subjective: * Chief Complaints: * 1 . Patient presents today for abnormal weight loss. * Medical History: Objective: * Vitals: Assessment: Plan: * Treatment: * * The named appointment provid er may or may not be the originator of this progress note, and it is not deemed complete until electronically signed by the appointment provider. Sign off status: Pending * Provider: Keely Groves MD Date: 09/03/2024 Generated for Pat mayberry/Tammy/Marieitting on: 11/06/2024 10:35 AM EDT
--- NOTE | 2024-11-06 09:10 | MHC.PC.OV ---
Vital Signs 11/06/24 09:11 Height 5 ft 5 in Weight 107 lb BMI 17.8 BP 118/76 Blood Pressure Location Lt brachial Position Sitting Pulse 75 Pulse Source Pulse Oximeter Pulse Oximetry (%) 98 Oxygen Delivery Method Room Air Intake Visit Reasons: 28 day follow up Allergies cefazolin (From [facility]) Allergy (Mild, Verified 10/08/24 09:49) Swelling Medication List - Last Reconciled 11/06/24 by Ciro White MD [Adult pull-ups As directed] atorvastatin 80 mg PO QPM omeprazole 20 mg PO DAILY oxycodone 5 mg PO BID 30 days sertraline 25 mg PO DAILY solifenacin 10 mg PO DAILY Tobacco use date assessed: 08/14/24 Dental Screening Dental Screen Date: 07/17/24 HPI 28 day follow up HPI Details History The patient is a 54-year-old female presenting with intercostal neuralgia. Intercostal Neuralgia: - Chronic condition requiring narcotic medication management. - Associated symptoms include chronic pain and discomfort. - Continuation of narcotic dependence, highlighting the need for monthly medication refills. Depression: - Ongoing management with psychiatric oversight. - Associated difficulties with anxiety, headaches, and difficulty sleeping. Restless Leg Syndrome: - Reported by the patient as contributing to difficulty in sleeping. - Under evaluation by neurology, though records and further evaluation are pending. Atherosclerotic Cardiovascular Disease: - Patient has undergone PCI to mid to distal RCA and mid LAD. - Is advised to continue on blood thinners for life to prevent clotting. - Last cardiology visit was in September 2022. Electrolyte Disturbance: - Managed by nephrology with regular lab tests indicating previous low potassium levels. Prediabetes: - Dietary and exercise changes made by the patient to manage condition. - Mentioned slightly impaired fasting glucose in past testing not formally noted. Medical History: - Chronic narcotic dependence - Intercostal neuralgia - Depression - Obsessive-compulsive disorder - Hypertension - Atherosclerotic cardiovascular disease - Lipid disorder - Impaired fasting glucose (prediabetic) - Restless leg syndrome Surgical History: - Percutaneous coronary intervention (PCI) to mid to distal right coronary artery (RCA) and mid left anterior descending artery (LAD). Medications: - Oxycodone 5 mg BID for pain management. - Atorvastatin 80 mg for lipid disorder. - Clopidogrel 75 mg for atherosclerotic cardiovascular disease. - Omeprazole 20 mg for gastroesophageal reflux disease. - sertraline 25 mg for psychiatric management. Social History: - Smokes one pack of cigarettes per day. - Engages in regular stationary bike exercise. - Demonstrates nutritional awareness with recent dietary changes. - Lives at home, has expressed lifestyle with minimal external activities. Family History: - Negative for diabetes from blood relatives. Problem List - Intercostal Neuralgia - Depression - Atherosclerotic Cardiovascular Disease - Electrolyte Disturbance - Prediabetes - Chronic Narcotic Dependence - Restless Leg Syndrome [place] [facility] - Geophysical Prospecting Surveyor: Dr. Bruno - Supervisor Print Line: Dr. Poon - Psychiatrist: Darrick - Pending neurology evaluation Patient Instructions - Contact cardiology to discuss continual use of blood thinners. - Perform blood tests for electrolyte monitoring and cholesterol (non-fasting). - Resume records for neurologist consultation. - Ensure continuation of medication as prescribed. - Utilize hydrocortisone cream for knee rash and avoid direct contact irritation. Review of Systems General: No fever no chills neurological: No headaches no dizziness ear nose throat: No sore throat no hearing difficulty no ear pain cardiovascular: No syncope, no chest pain, no palpitations gastrointestinal: No nausea vomiting or diarrhea skin: No new complaints Physical Exam general: No acute distress HEENT: No acute findings neck: Supple respiratory system: Able to talk in full sentences, no audible wheeze no stridor cardiovascular: S1-S2 RRR gastrointestinal: No pain extremities: No new findings TIPPLE GREASER: Alert awake oriented x3 motor sensory intact skin: Normal turgor, erythematous rash on both knees PFSH Medical History Obsessive compulsive disorder Agoraphobia Personality disorder Anxiety and depression 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) Surgical History Hx of dilation and curettage Hx of knee surgery Hx of tonsillectomy Family History Father Heart attack Hypertension Mother Hypertension Social History Household Members Other:: mom Housing: Condominium Alcohol intake: never Patient Tobacco Use Status: Current everyday Tobacco user Tobacco use type: Cigarette Years Smoked: 32 years e-Cigarette/Vaping Use: Never Used Second Hand Smoke Exposure: No service: No Current occupational status: disabled Current occupational exposures/hazards: No Sexual orientation: Straight/Heterosexual Gender identity: Female Cognitive needs: No Hearing needs: No Vision needs: Yes Questionnaire Thrive Questionnaire Date Thrive assessed: 02/28/24 I am a: Patient What is your living situation today?: I have a steady place to live Within the past 12 months, did the food you bought not last and you didn't have the money to get more?: I choose not to answer this question Within the past 12 months, did you worry whether your food would run out before you got money to buy more?: Never true Do you have trouble paying for medicines?: No Do you have trouble getting transportation to medical appointments?: No Do you have trouble paying your heating and electricity bill?: No Do you have trouble taking care of your child, family member or friend?: No Do you have trouble with day-to-day activities such as bathing, preparing meals, shopping, managing finances, etc.?: No Are you currently unemployed and looking for a job?: No Are you interested in more education?: No Please select the resources that you would like help with: None Currently or been in a relationship where the following occur: No concerns reported THRIVE Score: 0 FIFI-7 AMB Questionnaire FIFI-7 Date FIFI - 7 assessed: 02/28/24 Source: Developed by Drs. Dallas Keller, Cassie Frankel, Glynn Blackwell and colleagues, with an educational kane from [employer]. Physical exam (Primary Care) Vital Signs: Last Vital Signs Pulse 75 11/06/24 09:11 BP 118/76 11/06/24 09:11 Pulse Ox 98 11/06/24 09:11 Oxygen Delivery Method Room Air 11/06/24 09:11 BMI result Body Mass Index 17.8 Tobacco/Smoking Status: Tobacco use Status Tobacco use date assessed 08/14/24 11/06/24 09:10 Patient Tobacco Use Status Current everyday Tobacco 11/06/24 09:10 Tobacco use type Cigarette 11/06/24 09:10 e-Cigarette/Vaping Use Never Used 11/06/24 09:10 Thrive Assessment: Date of Thrive Assessment Date Thrive assessed 02/28/24 11/06/24 09:10 Currently or been in a relationship where the following occur: No concerns reported Coding Level of Care Code Est Pt Level 4 (89496) Complex EM visit Add On G2211 Diagnoses 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 Atherosclerotic cardiovascular disease I25.10 Lipid disorder E78.9 Impaired fasting blood sugar R73.01 Other obsessive-compulsive disorders F42.8 Obsessive-compulsive disorder type: other Anxiety, generalized F41.1 Recurrent major depressive disorder, in partial remission F33.41 Active/Remission status: in partial remission Mixed stress and urge urinary incontinence N39.46 Urinary Incontinence type: mixed stress and urge incontinence Chronic idiopathic pain syndrome G89.29 Smokes 1 pack of cigarettes per day F17.210 Chronic narcotic dependence F11.20 Assessment & Plan Assessment & Plan (1) Intercostal neuralgia: Code(s): G58.8 - Other specified mononeuropathies Category: Medical (2) Atherosclerotic cardiovascular disease: Code(s): I25.10 - Atherosclerotic heart disease of [place] coronary artery without angina pectoris Category: Medical (3) Lipid disorder: Code(s): E78.9 - Disorder of lipoprotein metabolism, unspecified Category: Medical (4) Impaired fasting blood sugar: Code(s): R73.01 - Impaired fasting glucose Category: Medical (5) Obsessive compulsive disorder: Code(s): F42.9 - Obsessive-compulsive disorder, unspecified Category: Medical Qualifiers: Obsessive-compulsive disorder type: other Qualified Code(s): F42.8 - Other obsessive-compulsive disorder (6) Anxiety, generalized: Code(s): F41.1 - Generalized anxiety disorder Category: Medical (7) Major depression, recurrent: Code(s): F33.9 - Major depressive disorder, recurrent, unspecified Category: Medical Qualifiers: Active/Remission status: in partial remission Qualified Code(s): F33.41 - Major depressive disorder, recurrent, in partial remission (8) Urine incontinence: Comment: Chronic. With microscopic hematuria. Being followed by Urology Code(s): R32 - Unspecified urinary incontinence Category: Medical Qualifiers: Urinary Incontinence type: mixed stress and urge incontinence Qualified Code(s): N39.46 - Mixed incontinence (9) Chronic idiopathic pain syndrome: Code(s): G89.29 - Other chronic pain Category: Medical (10) Smokes 1 pack of cigarettes per day: Code(s): F17.210 - Nicotine dependence, cigarettes, uncomplicated Category: Social Hx (11) Chronic narcotic dependence: Code(s): F11.20 - Opioid dependence, uncomplicated Category: Medical Plan History The patient is a 54-year-old female presenting with intercostal neuralgia. Intercostal Neuralgia: - Chronic condition requiring narcotic medication management. - Associated symptoms include chronic pain and discomfort. - Continuation of narcotic dependence, highlighting the need for monthly medication refills. Depression: - Ongoing management with psychiatric oversight. - Associated difficulties with anxiety, headaches, and difficulty sleeping. Restless Leg Syndrome: - Reported by the patient as contributing to difficulty in sleeping. - Under evaluation by neurology, though records and further evaluation are pending. Atherosclerotic Cardiovascular Disease: - Patient has undergone PCI to mid to distal RCA and mid LAD. - Is advised to continue on blood thinners for life to prevent clotting. - Last cardiology visit was in September 2022. Electrolyte Disturbance: - Managed by nephrology with regular lab tests indicating previous low potassium levels. Prediabetes: - Dietary and exercise changes made by the patient to manage condition. - Mentioned slightly impaired fasting glucose in past testing not formally noted. Medical History: - Chronic narcotic dependence - Intercostal neuralgia - Depression - Obsessive-compulsive disorder - Hypertension - Atherosclerotic cardiovascular disease - Lipid disorder - Impaired fasting glucose (prediabetic) - Restless leg syndrome Surgical History: - Percutaneous coronary intervention (PCI) to mid to distal right coronary artery (RCA) and mid left anterior descending artery (LAD). Medications: - Oxycodone 5 mg BID for pain management. - Atorvastatin 80 mg for lipid disorder. - Clopidogrel 75 mg for atherosclerotic cardiovascular disease. - Omeprazole 20 mg for gastroesophageal reflux disease. - sertraline 25 mg for psychiatric management. Social History: - Smokes one pack of cigarettes per day. - Engages in regular stationary bike exercise. - Demonstrates nutritional awareness with recent dietary changes. - Lives at home, has expressed lifestyle with minimal external activities. Family History: - Negative for diabetes from blood relatives. Problem List - Intercostal Neuralgia - Depression - Atherosclerotic Cardiovascular Disease - Electrolyte Disturbance - Prediabetes - Chronic Narcotic Dependence - Restless Leg Syndrome [place] [facility] - Geophysical Prospecting Surveyor: Dr. Bruno - Supervisor Print Line: Dr. Poon - Psychiatrist: Darrick - Pending neurology evaluation Patient Instructions - Contact cardiology to discuss continual use of blood thinners. - Perform blood tests for electrolyte monitoring and cholesterol (non-fasting). - Resume records for neurologist consultation. - Ensure continuation of medication as prescribed. - Utilize hydrocortisone cream for knee rash and avoid direct contact irritation. Orders: Orders Comprehensive Met. Panel Today E78.9 - Disorder of lipoprotein metabolism, unspecified, F33.41 - Major depressive disorder, recurrent, in partial remission, F41.1 - Generalized anxiety disorder, F42.8 - Other obsessive-compulsive disorder, I25.10 - Atherosclerotic heart disease of [place] coronary artery without angina pectoris, R73.01 - Impaired fasting glucose TSH reflex Free T4 Today E78.9 - Disorder of lipoprotein metabolism, unspecified, F33.41 - Major depressive disorder, recurrent, in partial remission, F41.1 - Generalized anxiety disorder, F42.8 - Other obsessive-compulsive disorder, I25.10 - Atherosclerotic heart disease of [place] coronary artery without angina pectoris, R73.01 - Impaired fasting glucose LDL Cholesterol Direct Today E78.9 - Disorder of lipoprotein metabolism, unspecified, F33.41 - Major depressive disorder, recurrent, in partial remission, F41.1 - Generalized anxiety disorder, F42.8 - Other obsessive-compulsive disorder, I25.10 - Atherosclerotic heart disease of [place] coronary artery without angina pectoris, R73.01 - Impaired fasting glucose Hemoglobin A1c Today E78.9 - Disorder of lipoprotein metabolism, unspecified, F33.41 - Major depressive disorder, recurrent, in partial remission, F41.1 - Generalized anxiety disorder, F42.8 - Other obsessive-compulsive disorder, I25.10 - Atherosclerotic heart disease of [place] coronary artery without angina pectoris, R73.01 - Impaired fasting glucose Medications: Refilled oxycodone Partial Fill upon patient request. 5 mg PO BID 60 tabs 0RF pain 30 days
[2024-11-06 09:11] VITALS: BP 118/76; PULSE 75; O2SAT 98; BMI 17.8
--- OUTSIDE RECORDS SUMMARY | 2024-11-06 10:35 | XMS_ITS | Patient Health Record ---
Author Organization [facility] Address [address] [place] [address] Care Team Providers Care Sanitation Engineer Name Role Phone Christopher BUSH, Asma Primary Care Provider Dallas Toney [phone] Reason For Referral No Information Encounters Encounter Location Date Provider Diagnosis [facility] [address] [place] [address] 09/03/2024 Dallas Groves Plan Of Treatment No Information Insurance Providers Payer Name Payer Address Payer Phone Subscriber Number Group Number Insured Name Patient Relationship to Insured Coverage Start Date Coverage End Date MEDICARE OF [place] [address] [place] [id number] [phone] [id number] TEJA GONZALEZ Self - patient is the insured MEDICAID OF [facility] [address] [place] [address] [phone] [id number] TEJA GONZALEZ Self - patient is the insured
--- OUTSIDE RECORDS SUMMARY | 2024-11-06 10:36 | XMS_ITS | Clinical Summary ---
Author Organization [facility] Address [address] [place] [address] Phone Care Team Providers Care Pump Erector Helper Name Role Phone Physician, No Pcp Primary [...] Eye exam every 2 years Chronic myelopathy ([facility] V24, [facility] V28) Anxiousness 04/18/2021 History of percutaneous coronary intervention Coronary artery disease invo lving [place] heart without angina pectoris 11/19/2020 Assessment & [...] wks NSTEMI (non-ST elevated myoc ardial infarction) ([facility] V24, [facility] V28) 10/11/2020 Overview (10/12/2020): Added automatically from request for surgery [id number] Assessment & Plan (10/12/2020 3:40 PM EDT): - s/p cardiac cath-This is consistent with a nonhemodynamically significant stenosis. -AAC remains on consult -Troponins-0.015-->0.50-->0.651-->0.327 -tele monitor - Cardio requested CTA r/o PE, U/S bilateral lower legs- r/o DVT and ECHO -asa/plavix/toprol/lipitor Severe episode of recurrent major depressive disorder, without psychotic features ([facility] V24, [facility] V28) 08/26/2020 Somatoform disorder, unspecified 07/22/2020 Obsessive-compulsive disorder 07/22/2020 Episode of recurrent major d epressive disorder ([facility] V24) 07/22/2020 Breast neoplasm 04/01/2020 Panic [...] your next appointment. Limit the use of rrmr-aar-acbjdwj and prescription pain medications to 2 - [...] urge urinary incontinence 08/23 Borderline personality disorder (CMS/[facility] V24, CM S/HCC V28) 08/22/2016 Temporomandibular joint [...] preservative (Fluzone; Afluria) 6mo and older 01/18/2016 PalindromX/MobileIron SARS-CoV-2 COVID -19, vector-nr, rS-Ad26, preservative free [...] TONSILLECTOMY ADENOIDECTOMY, BILATERAL MYRINGOTOMY AND TUBES PROCEDURE: [place] TONSILLECTOMY & ADENOIDECTOMY <AGE 12 OTHER SURGICAL HISTORY PROCEDURE: [place] ARTHRS KNEE W/MENISCECTOMY MED&LAT W/SHAVING; COMMENT: left side OTHER SURGICAL HISTORY PROCEDURE: [place] DILATION & CURETTAGE DX&/THER NONOBSTETRIC; COMMENT: 3 [...] Colonoscopy 02/28/2019 Medicare Annual Wellness Visit 02/28/2019 Social Influencers of Health Screening 02/28/2019 COVID-19 Vaccine (2 - Arleen risk series) 08/05/2020 07/08/2020 Hypertension/CHF/CAD Annual BMP Blood Test 02/02/2023 02/02/2022, 11/29/2021, 11/22/2021, Additional history exists Depression Screening 02/14/2024 Influenza Vaccine (#1) 2024 3, 11/14/2016, 01/18/2016 Cervical Cancer Screening: HPV 12/01/2024 12/02/2019 Cholesterol Screening (Lipid Panel) 10/26/2026 10/26/2021, 11/29/2019 RSV Immunization Adult Patients (1 - 1-dose 75+ series) 2047 HIV Screening Completed 10/26/2021 Hepatitis C Screening [...] this topic Medical Devices Implanted Type Area Sweat Band Separator Device Identifier Shelf Expiration Date Model / [...] LAB CHEMISTRY METHOD 02/02/2022 8:51 AM EST [facility] Potassium 3.1(L) 3.5 - 5.1 mmol/L LAB CHEMISTRY METHOD 02/02/2022 8:51 AM [facility] Chloride 114(H) 98 - 107 mmol/L LAB CHEMISTRY METHOD 02/02/2022 8:51 AM [facility] CO2 21 21 - 32 mmol/L LAB CHEMISTRY METHOD 02/02/2022 8:51 AM [facility] Anion Gap 8 3 - 11 LAB CHEMISTRY METHOD 02/02/2022 8:51 AM [facility] Glucose 104(H) 70 - 99 mg/dL LAB CHEMISTRY METHOD 02/02/2022 8:51 AM [facility] BUN 10 7 - 18 mg/dL LAB CHEMISTRY METHOD 02/02/2022 8:51 AM [facility] Creatinine 0.80 0.55 - 1.02 mg/dL LAB CHEMISTRY METHOD 02/02/2022 8:51 AM [facility] eGFR 90 >=60 mL/min/1. 73m2 LAB CHEMISTRY METHOD 02/02/2022 8:51 AM [facility] Comment: The MDRD GFR formula is valid only for adults between ages 18 and 70. Effective November 21, 2021, calculation based on the Chronic Kidney Disease Epidemiology Collaboration (CKD-EPI) equation refit without adjustment for race. BUN/Creatinine Ratio 12.5 12.0 - 20.0 LAB CHEMISTRY METHOD 02/02/2022 8:51 AM [facility] Calcium 9.0 8.5 - 10.1 mg/dL LAB CHEMISTRY METHOD 02/02/2022 8:51 AM [facility] AST (SGOT) 12(L) 15 - 37 unit/L LAB CHEMISTRY METHOD 02/02/2022 8:51 AM [facility] ALT (SGPT) 17 13 - 56 unit/L LAB CHEMISTRY METHOD 02/02/2022 8:51 AM [facility] Alkaline Phosphatase 72 42 - 98 unit/L LAB CHEMISTRY METHOD 02/02/2022 8:51 AM [facility] Total Protein 7.0 6.4 - 8.2 g/dL LAB CHEMISTRY METHOD 02/02/2022 8:51 AM [facility] Albumin 3.8 3.4 - 5.0 g/dL LAB CHEMISTRY METHOD 02/02/2022 8:51 AM [facility] Total Bilirubin 0.6 0.2 - 1.0 mg/dL LAB CHEMISTRY METHOD 02/02/2022 8:51 AM [facility] Blood Venous blood specimen / Unknown Venipuncture / Unknown 02/02/2022 7:58 AM EST 02/02/2022 8:04 AM EST us Adonis Zafar DO LAB BLOOD ORDERABLES Final Res ult [facility] [address] [place] [address] * HIV 1, HIV 2 antibody screen, P24 antigen with reflex to differentiation (10/26/2021 2:27 PM EDT) Pathologist [facility] HIV Combo AB/AG Negative/ Nonreacti ve Negative/ [...] 5. Only REACTIVE results are reported to [facility]. 6. REACTIVE results will be sent to our Reference Laboratory for HIV-1 AB, HIV-2 AB differentiation, and HIV-1 RNA detection by Facilities Maintenance Technician-Mediated Amplification (TMA) and if positive, quantitation by Real-Time PCR. Gale Howard NP LAB BLOOD ORDERABLES Final Res ult [facility] [address] [place] [id number] * Hepatitis panel, acute (10/26/2021 2:27 PM [...] AM EDT Performed at: 01 - [facility] [address] [id number] Waiter/Waitress Second Class: Yahir Moss MD, Phone: [phone] Gale Howard NP LAB BLOOD ORDERABLES Final Res ult [facility] * (ABNORMAL) Lipid panel (10/26/2021 2:27 PM EDT) Cholesterol 153 <200 mg/dL LAB CHEMISTRY METHOD 10/26/2021 4:57 PM EDT [facility] Triglycerides 157(H) <150 mg/dL LAB CHEMISTRY METHOD 10/26/2021 4:57 PM EDT [facility] HDL 49(L) >59 mg/dL LAB CHEMISTRY METHOD 10/26/2021 4:57 PM EDT [facility] Comment: <35 mg/dl is the cut-point for increased Coronary Heart Disease (CHD) risk. LDL Calculated 73 0 - 99 mg/dL LAB CHEMISTRY METHOD 10/26/2021 4:57 PM EDT [facility] VLDL Cholesterol Francisco 31.4(H) <=30 mg/dL LAB CHEMISTRY METHOD 10/26/2021 4:57 PM EDT [facility] Blood Venous blood specimen / Unknown Venipuncture / Unknown 10/26/2021 2:27 PM EDT 10/26/2021 2:27 PM EDT Gale Howard NP LAB BLOOD ORDERABLES Final Res ult [facility] [address] [place] [address] * Cervical Cancer Screening: HPV (12/02/2019) Pathologist [facility] Cervical Cancer Screening: HPV abstracted Historical [...] currently active code status orders. Care Teams Pump Erector Helper Relationship Specialty Start Date End Date Physician, No Pcp PCP - General 02/02/22
== END 2024-11-06 09:47 | disposition home or self-care (01) ==
LOC: HO.HMCC 09:01
PROVIDERS: PCP Internal Medicine; Visit Provider Internal Medicine
DX: G58.8 Other specified mononeuropathies (principal); I25.10 Atherosclerotic heart disease of native coronary artery without angina pectoris; F11.20 Opioid dependence, uncomplicated; E78.9 Disorder of lipoprotein metabolism, unspecified; R73.01 Impaired fasting glucose; F42.8 Other obsessive-compulsive disorder; F41.1 Generalized anxiety disorder; F33.41 Major depressive disorder, recurrent, in partial remission; N39.46 Mixed incontinence; G89.29 Other chronic pain; F17.210 Nicotine dependence, cigarettes, uncomplicated

== ENCOUNTER → 2024-11-06 09:00 | Outpatient (BNVA) | payer MEDICARE, MEDICAID, SELFPAY | PROVIDERS: PCP Internal Medicine; Visit Provider Internal Medicine | DX: G58.8 Other specified mononeuropathies (principal); I25.10 Atherosclerotic heart disease of native coronary artery without angina pectoris; E78.9 Disorder of lipoprotein metabolism, unspecified; R73.01 Impaired fasting glucose; F42.8 Other obsessive-compulsive disorder; F41.1 Generalized anxiety disorder; F33.41 Major depressive disorder, recurrent, in partial remission; N39.46 Mixed incontinence; G89.29 Other chronic pain; F11.20 Opioid dependence, uncomplicated; F17.210 Nicotine dependence, cigarettes, uncomplicated; Z71.6 Tobacco abuse counseling | CPT/HCPCS: 99212 ==

== ENCOUNTER 2024-12-11 08:01 | Outpatient (AMB) | payer MEDICARE, MEDICAID, SELFPAY ==
--- OUTSIDE RECORDS SUMMARY | 2020-03-10 04:45 | XMS_ITS | Continuity of Care Document ---
Author Organization [facility] Address [address] [place] [address] Phone Care Team Providers Care Civil Engineering Drafter Name Role Phone Jennifer BUSH, FACS, FAAOA, [...] Copied on Encounter Office/Outpa tient Visit, Est [facility], [address] [place] [address], [address] [place] [address] , tel:[phone] Rodriguez Lump in throat (chief complaint) sore throat (chief complaint) Mass of epiglottisLaryngop haryngeal reflux (LPR)Dysphagia, unspecified typeAnxietyH/O heart artery stent 1 Jennifer Gusmana. [address] [place] [address], [id number], . tel:[phone] Specialist : Milind Finch MD, [address] [place] [address], [address]. tel:[phone] cialist: Miya Armendariz MD, [address] [facility] [address], [place], [address]. tel:[phone] cialist: Woodrow Bullock MD, [address] [place] [address], [address]. [phone] erring Provider: Frank Edmonds MD, Family Medicine [address] [place] [address], [address]. tel:[phone] [facility], [address] [place] [address], [address] [place] [address] , tel:[phone] Flxe No Information 1 Flex Romeo. [address] [place] [address], [address] [place] [address], . tel:[phone] Referring Provider: Frank Edmonds MD, Family Medicine [address] [place] [address], [address]. tel:[phone] [facility], [address] [place] [address], [address] [place] [address] , tel:[phone] Aurora No Information 0 No Information Referring Provider: Frank Edmonds MD, Family Medicine [address] [place] [address], [address]. tel:[phone] Office/Outpa tient Visit, [facility], [address] [place] [address], [address] [place] [address] , tel:[phone] Flex Dysphagia follow up (chief complaint) Current smokerDysphagia, unspecified typeAnxietyLaryngo pharyngeal reflux (LPR)Mass of epiglottis 0 Flex Romeo. [address] [place] [address], [id number], . tel:[phone] Specialist : Milind Finch MD, [address] [place] [address], [address]. tel:[phone] cialist: Miya Armendariz MD, [address] [place] [address], [address]. tel:[phone] cialist: Woodrow Bullock MD, [address] [place] [address], [address]. tel:[phone] erring Provider: Frank Edmonds MD, Family Medicine [address] [place] [address], [address]. tel:[phone] [facility], [address] [place] [address], [address] [place] [address] , tel:[phone] Patient Portal No Information 0 Jennifer Colón. [address] [place] [address], [address] [place] [address], . tel:[phone] Office/Outpa tient Visit, [facility], [address] [place] [address], [address] [place] [address] , tel:[phone] Simon Dysphagia (chief complaint) Dysphagia, unspecified typeLaryngopharyng eal reflux (LPR)AnxietyMass of epiglottisCurrent smoker 0 No Customer Servicer : Milind Finch MD, [address] [place] [address], [address]. tel:[phone] cialist: Miya Armendariz MD, [address] [place] [address], [address]. tel:[phone] cialist: Woodrow Bullock MD, [address] [place] [address], [address]. tel:[phone] erring Provider: Frank Edmonds MD, Family Medicine [address] [place] [address], [address]. tel:[phone] Office/Outpa tient Visit, [facility], [address] [place] [address], [id number] , tel:[phone] Setzen Facial pain (chief complaint) Headache around the eyesTMJ derangementDeviate d nasal septumReferred otalgia of both ears Aug-0 3-201 8 Renny Capone. [address] [facility], [place], [place], [id number], . tel:[phone] Specialist : Milind Finch MD, [address] [place], [address]. tel:[phone] cialist: Miya Armendariz, [address] [facility] [address], [place], [address]. tel:[phone] cialist: Woodrow Bullock MD, [address] [facility] [address], [place], [address]. tel:[phone] erring Provider: Frank Edmonds MD, Family Medicine [address] [place] [address], [address]. tel:[phone] Family History Family Member Type Diagnosis Age At Onset Father Problem (finding) Heart disease Payers Payer name Insurance type Covered democrat ID Authoriza tion(s) MEDICARE PART B [id number] Social History Type Description Quantity Date Captured [...] sore throat in the AM. She used [place] yesterday with relief. Stilhaving some difficulty swallowing [...] sore throat in the AM. She used [place] yesterday with relief. 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 Additional information: Was in [facility] ER last week - left arm [...] are variable and intense. She saw an aeronautical design engineer who told her that her eyes were [...] have a normal upper endoscopy with her sales analyst several months ago. I will request records [...]
--- OUTSIDE RECORDS SUMMARY | 2024-09-03 06:20 | XMS_ITS ---
Author Organization [facility] Address [address] [place] [phone] Care Team Providers Care Construction Technician Name Role Phone Christopher BUSH, Ciro Primary Care Provider Dallas Toney [phone] REASON FOR VISIT Patient presents today for abnormal weight loss Encounters Encounter Location Date Provider Diagnosis [facility] [address] [place] [phone] 09/03/2024 Dallas Groves Plan Of Treatment No Information Progress Notes * TEJA GONZALEZDOB:1970 (54 yo F)Acc No.[id number]:09/03/2024 Progress Notes Patient: TEJA DONATO Provider: Keely Groves MD :1970 A ge:54 Y S ex:Female Date:09/03/2024 Address:[address] [place] [address], [address], [place], [facility] Pcp:Ciro White MD Subjective: * Chief Complaints: [...] MD Date: 0 09/03/2024 Generated for Pat mayberry/Tammy/Marieitting on: 08:06 AM EDT
--- OUTSIDE RECORDS SUMMARY | 2024-12-11 08:07 | XMS_ITS | Patient Health Record ---
Author Organization [facility] Address [address] [place] [address] Care Team Providers Care Potato Chip Fryer Name Role Phone Christopher BUSH, Asma Primary Care Provider Dallas Toney [phone] Reason For Referral No Information Encounters Encounter Location Date Provider Diagnosis [facility] [address] [place] [address] 09/03/2024 Dallas Groves Plan Of Treatment No Information Insurance Providers Payer Name Payer Address Payer Phone Subscriber Number Group Number Insured Name Patient Relationship to Insured Coverage Start Date Coverage End Date MEDICARE OF [place] [address] [place] [id number] TEJA GONZALEZ Self - patient is the insured MEDICAID OF [facility] [address] [place] [address] [id number] TEJA GONZALEZ Self - patient is the insured
[2024-12-11 08:12] VITALS: BP 136/80; PULSE 88; RESP 16; TEMP 36.8; O2SAT 97; BMI 18.5
--- NOTE | 2024-12-11 08:12 | A.OFFPC_ITS ---
Vital Signs 12/11/24 08:12 Height 5 ft 5 in Weight 111 lb BMI 18.5 BP 136/80 Blood Pressure Location Rt brachial Position Sitting Respiration 16 Pulse 88 Pulse Source Pulse Oximeter Temp 98.2 F Temp Source Oral Pulse Oximetry (%) 97 Oxygen Delivery Method Room Air Intake Visit Reasons: follow up per [place] Allergies cefazolin (From Anc) Allergy (Mild, Verified 10/08/24 09:49) Swelling Medication List - Last Reconciled 12/11/24 by Ciro White MD [Adult pull-ups As directed] atorvastatin 80 mg PO QPM omeprazole 20 mg PO DAILY oxycodone 5 mg PO BID 7 days sertraline 25 mg PO DAILY solifenacin 10 mg PO DAILY Tobacco use date assessed: 12/11/24 Dental Screening Dental Screen Date: 12/11/24 Did you have a dental visit in the last 12 months?: No Did you have a dental problem in the last 6 months where you did not have access to dental care?: No Was dental information given to patient?: Patient declined HPI follow up per [place] HPI Details History of Present Illness The patient is a 54 year old female presenting for medication refills and management of supplies for incontinence. Urinary Incontinence: - The patient uses adult pull-ups for in continence and requires a new prescription. - She reports that the small size, which she has been using, is now too tight and almost rips when put on, partly due to a recent weight gain of 4 pounds. - She is requesting a prescription for a medium size. - The patient has four packages of the c urrent supplies remaining and will call the supply company after a new prescription is sent. Nicotine Dependence: - The patient continues to smoke one pac k of cigarettes per day. - A previous prescription for smoking ce ssation was not covered by insurance. - She quit smoking four years ago while hospitalized for cardiac stent placement but has since relapsed. - She expresses concern about potential weight gain if she quits smoking. Underweight: - The patient was pleased to report a 4- pound weight gain. - She reports an increased appetite, sta ting she has been eating like a pig. - A goal weight of 125 pounds was sugges kandy by the patient, while a target weight of 140 pounds is considered a good weight for her. Long-term use of opioid analgesics: For chronic sternal pain - The patient takes narcotic medication, (oxycodone). - She received a one-week supply and is due for a one-month refill. Medical History: - History of cardiac stent placement fou r years ago. - Reports being on disability. Social History: - Substance Use: The patient smokes one pack of cigarettes per day. - Nutrition: Reports increased appetite and recent weight gain of 4 pounds, stating she has been eating like a pig. - Living Situation: Reports being on dis ability. Diagnostic Results: - Labs: The patient has pending blood wo rk and plans to complete it after the appointment. Problem List - Nicotine dependence - Underweight - Long-term use of opioid analgesics - Urinary incontinence - Preventative care: Influenza vaccinati on discussed Plan - A one-month prescription for oxycodone will be sent to the pharmacy. - A new prescription for medium-sized ad ult pull-ups will be sent to the [facility]; the nurse will manage this. - Discussed smoking cessation, recommend ing nicotine patches as a more affordable option than prescription medication. - The patient was encouraged to quit smo jonathan, with reassurance that any resulting weight gain would help her reach a normal weight of around 140 lbs. - The patient will get her pending blood work done today. - Offered influenza vaccine, which the p atient deferred to her next appointment. 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 x3 motor intact Skin: Normal turgor PFSH Medical History Obsessive compulsive disorder Agoraphobia Personality disorder Anxiety and depression 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) Surgical History Hx of dilation and curettage Hx of knee surgery Hx of tonsillectomy Family History Father Heart attack Hypertension Mother Hypertension Social History Household Members Other:: mom Housing: Condominium Alcohol intake: never Patient Tobacco Use Status: Current everyday Tobacco user Tobacco use type: Cigarette Years Smoked: 32 years e-Cigarette/Vaping Use: Never Used Second Hand Smoke Exposure: No service: No Current occupational status: disabled Current occupational exposures/hazards: No Sexual orientation: Straight/Heterosexual Gender identity: Female Cognitive needs: No Hearing needs: No Vision needs: Yes Questionnaire Thrive Questionnaire Date Thrive assessed: 02/28/24 I am a: Patient What is your living situation today?: I have a steady place to live Within the past 12 months, did the food you bought not last and you didn't have the money to get more?: I choose not to answer this question Within the past 12 months, did you worry whether your food would run out before you got money to buy more?: Never true Do you have trouble paying for medicines?: No Do you have trouble getting transportation to medical appointments?: No Do you have trouble paying your heating and electricity bill?: No Do you have trouble taking care of your child, family member or friend?: No Do you have trouble with day-to-day activities such as bathing, preparing meals, shopping, managing finances, etc.?: No Are you currently unemployed and looking for a job?: No Are you interested in more education?: No Please select the resources that you would like help with: None Currently or been in a relationship where the following occur: No concerns reported THRIVE Score: 0 AUDIT C Alcohol Use Questionnaire (AUDIT-C) 3. How often do you have six or more drinks on one occasion?: Never Total Score: 0 FIFI-7 AMB Questionnaire FIFI-7 Date FIFI - 7 assessed: 02/28/24 Source: Developed by Drs. Dallas Keller, Cassie Frankel, Glynn Blackwell and colleagues, with an educational kane from [employer]. Physical exam (Primary Care) Vital Signs: Last Vital Signs Temp 98.2 F 12/11/24 08:12 Pulse 88 12/11/24 08:12 Resp 16 12/11/24 08:12 BP 136/80 12/11/24 08:12 Pulse Ox 97 12/11/24 08:12 Oxygen Delivery Method Room Air 12/11/24 08:12 BMI result Body Mass Index 18.5 Tobacco/Smoking Status: Tobacco use Status Tobacco use date assessed 12/11/24 12/11/24 08:17 Patient Tobacco Use Status Current everyday Tobacco 12/11/24 08:13 Tobacco use type Cigarette 12/11/24 08:13 e-Cigarette/Vaping Use Never Used 12/11/24 08:13 Are you ready to quit: No Tobacco cessation counseling provided: Yes Relapse Prevention: discussed the importance of a supportive environment and weight gain after smoking is common Thrive Assessment: Date of Thrive Assessment Date Thrive assessed 02/28/24 12/11/24 08:13 Currently or been in a relationship where the following occur: No concerns reported Coding Level of Care Code Est Pt Level 4 (88850) Complex EM visit Add On G2211 Diagnoses 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 Other obsessive-compulsive disorders F42.8 Obsessive-compulsive disorder type: other Anxiety, generalized F41.1 Recurrent major depressive disorder, in partial remission F33.41 Active/Remission status: in partial remission Mixed stress and urge urinary incontinence N39.46 Urinary Incontinence type: mixed stress and urge incontinence Chronic idiopathic pain syndrome G89.29 Smokes 1 pack of cigarettes per day F17.210 Chronic narcotic dependence F11.20 Assessment & Plan Assessment & Plan (1) Intercostal neuralgia: Code(s): G58.8 - Other specified mononeuropathies Category: Medical (2) Obsessive compulsive disorder: Code(s): F42.9 - Obsessive-compulsive disorder, unspecified Category: Medical Qualifiers: Obsessive-compulsive disorder type: other Qualified Code(s): F42.8 - Other obsessive-compulsive disorder (3) Anxiety, generalized: Code(s): F41.1 - Generalized anxiety disorder Category: Medical (4) Major depression, recurrent: Code(s): F33.9 - Major depressive disorder, recurrent, unspecified Category: Medical Qualifiers: Active/Remission status: in partial remission Qualified Code(s): F33.41 - Major depressive disorder, recurrent, in partial remission (5) Urine incontinence: Comment: Chronic. With microscopic hematuria. Being followed by Urology Code(s): R32 - Unspecified urinary incontinence Category: Medical Qualifiers: Urinary Incontinence type: mixed stress and urge incontinence Qualified Code(s): N39.46 - Mixed incontinence (6) Chronic idiopathic pain syndrome: Code(s): G89.29 - Other chronic pain Category: Medical (7) Smokes 1 pack of cigarettes per day: Code(s): F17.210 - Nicotine dependence, cigarettes, uncomplicated Category: Social Hx (8) Chronic narcotic dependence: Code(s): F11.20 - Opioid dependence, uncomplicated Category: Medical Plan Urinary Incontinence: - The patient uses adult pull-ups for incontinence and requires a new prescription. - She reports that the small size, which she has been using, is now too tight and almost rips when put on, partly due to a recent weight gain of 4 pounds. - She is requesting a prescription for a medium size. - The patient has four packages of the current supplies remaining and will call the supply company after a new prescription is sent. Nicotine Dependence: - The patient continues to smoke one pack of cigarettes per day. - A previous prescription for smoking cessation was not covered by insurance. - She quit smoking four years ago while hospitalized for cardiac stent placement but has since relapsed. - She expresses concern about potential weight gain if she quits smoking. Underweight: - The patient was pleased to report a 4-pound weight gain. - She reports an increased appetite, stating she has been eating like a pig. - A goal weight of 125 pounds was suggested by the patient, while a target weight of 140 pounds is considered a good weight for her. Long-term use of opioid analgesics: For chronic sternal pain - The patient takes narcotic medication,(oxycodone). - She received a one-week supply and is due for a one-month refill. Medical History: - History of cardiac stent placement four years ago. - Reports being on disability. Social History: - Substance Use: The patient smokes one pack of cigarettes per day. - Nutrition: Reports increased appetite and recent weight gain of 4 pounds, stating she has been eating like a pig. - Living Situation: Reports being on disability. Diagnostic Results: - Labs: The patient has pending blood work and plans to complete it after the appointment. Problem List - Nicotine dependence - Underweight - Long-term use of opioid analgesics - Urinary incontinence - Preventative care: Influenza vaccination discussed Plan - A one-month prescription for oxycodone will be sent to the pharmacy. - A new prescription for medium-sized adult pull-ups will be sent to the [facility]; the nurse will manage this. - Discussed smoking cessation, recommending nicotine patches as a more affordable option than prescription medication. - The patient was encouraged to quit smoking, with reassurance that any resulting weight gain would help her reach a normal weight of around 140 lbs. - The patient will get her pending blood work done today. - Offered influenza vaccine, which the patient deferred to her next appointment. Medications: Changed From oxycodone Partial Fill upon patient request. 5 mg PO BID 7 days 14 tabs 0RF pain To oxycodone Partial Fill upon patient request. 5 mg PO BID 60 tabs 0RF pain 30 days
== END 2024-12-11 08:34 | disposition home or self-care (01) ==
LOC: HO.HMCC 08:02
PROVIDERS: PCP Internal Medicine; Visit Provider Internal Medicine
DX: G58.8 Other specified mononeuropathies (principal); F11.20 Opioid dependence, uncomplicated; F42.8 Other obsessive-compulsive disorder; F41.1 Generalized anxiety disorder; F33.41 Major depressive disorder, recurrent, in partial remission; N39.46 Mixed incontinence; G89.29 Other chronic pain; F17.210 Nicotine dependence, cigarettes, uncomplicated

== ENCOUNTER 2024-12-11 08:01 | Outpatient (REF) | payer MEDICARE, MEDICAID, SELFPAY ==
--- OUTSIDE RECORDS SUMMARY | 2019-11-25 | XMS_ITS | Encounter Summary ---
Author Organization [place] [address] Care Team Providers Care Final Inspector Balance Wheel Name Role Phone Unavailable Primary Care Provider Unavailabl e Encounter Details Date Type Department Care Team (Late st Contact Info) Description 11/25/2019 Hospital Encounter TH HISTORIC ENCOUNTERS EASTERN CONVERSION ONLY Selma Ace MD [address] [place] [address] Other chest pain Social History Tobacco Use [...] money to get more. Never true 10/14/2020 [facility] Answer Date Re corded How [...] (Lifetime) No 10:00 AM EDT Panfilo Kline, FUR DRUMMER-R Aborted or Self-Interrupted Attempt (Lifetime) No 06/24/2020 10:00 AM EDT Panfilo Kline, LCS W-R Preparatory Acts or Behavior (Lifetime) No 06/24/2020 10:00 AM EDT Panfilo Kline, LCS W-R * [place] Suicide Severity Rating Scale (Screener/Recent Self-Report) Question [...] this encounter Results * TTE W/Doppler Complete [id number] [facility] (11/26/2019 10:09 AM EDT) Anatomical Region Laterality Modality Other 11/25/2019 8:17 AM EDT Narrative 11/26/2019 10:09 AM EDT [facility] in Cardiology [address] [place] [address] Transthoracic Echocardiogram Report Name: ELENITA DOUGLAS Exam Date: 11/25/2019 08:17 Ordering Physician:SELMA ACE Age: 49 Gender: F Ht (in):65 Wt (lb): 168 Referring Physician:SHIRLEY WOLF BSA: 1.87 Operating Room Aide: TREVOR : 1970 BP (mmHg): 108 / 70 Exam Location: [facility] Type of Exam: Adult CPT's: 43982 Clinical Indications:OTHER CHEST PAIN / LIGHTHEADED / [...] Procedure Note Historical, Cardiovascular Results, - 07/08/2020 [facility] [address] [place] [address] Transthoracic Echocardiogram Report Name: ELENITA DOUGLAS Exam Date: 11/25/2019 08:17Ordering Physician:SELMA ACE Age: 49 Gender: F Ht (in):65 Wt (lb): 168Referring Physician:SHIRLEY WOLF BSA: 1.87Sonographer: TREVOR : 1970 BP (mmHg): 108 / 70 Exam Location: [facility] Type of Exam: Adult CPT's: 02393 Clinical Indications:OTHER CHEST PAIN / LIGHTHEADED / [...] E to A Ratio 1.85 TR Peak Kblthauh244.00 cm/ MV Deceleration Time 153.54 ms TR Peak Qnjxkjek54.28 mmHg Cullen Nelson MD, [facility] (Electronically Signed) Final Date: 26 November 2019 10:08 us Cardiovascular Results Historical CV HISTORIC AL CONV PROCEDURES Final Result * Stress Test Cardiac Tracing [id number] [facility] (11/25/2019 7:37 PM EDT) Anatomical Region Laterality Modality Other 11/25/2019 9:09 AM EDT Narrative 11/25/2019 7:37 PM EDT [facility] in Cardiology [address] [place] [address] Stress Test Report Name: ELENITA DOUGLAS Exam Date: 11/25/2019 09:09 Ordering Phys: SELMA ACE Exam Location: [facility] Referring Phys:SHIRLEY WOLF Age: 49 Gender: F Ht (in):65 Wt (lb):163 BSA 1.84 Technologist: leobardo edmondson : 1970 Procedure CPT: 76709 Indications: Other chest pain, Palpitations, Other forms [...] Note Historical, Cardiovascular Results, MD - 07/08/2020 [facility] [address] [place] [address] Stress Test Report Name: ELENITA DOUGLAS Exam Date: 11/25/2019 09:09Ordering Phys: SELMA ACE Exam [facility]Referring Phys:SHIRLEY LUCIANO Age: 49 Gender: F Ht (in):65 Wt (lb):163 BSA 1.84Technologist: leobardo edmondson : 1970 Procedure CPT: 31870 Indications: Other chest pain, Palpitations, Other forms [...]
--- OUTSIDE RECORDS SUMMARY | 2019-12-11 | XMS_ITS | Encounter Summary ---
Author Organization [place] [address] Care Team Providers Care Household Appliance Installer Name Role Phone Unavailable Primary Care Provider Unavailabl e Encounter Details Date Type Department Care Team (Late st Contact Info) Description 12/11/2019 Hospital Encounter TH HISTORIC ENCOUNTERS EASTERN CONVERSION ONLY Selma Ace MD [address] [place] [address] Palpitations Social History Tobacco Use Types Packs/Day [...] money to get more. Never true 10/14/2020 [facility] Answer Date Re corded How [...] (Lifetime) No 10:00 AM EDT Aimeejasvir Panfilo, OPERATING COST CLERK-R Aborted or Self-Interrupted Attempt (Lifetime) No 06/24/2020 10:00 AM EDT Panfilo Kline LCS W-R Preparatory Acts or Behavior (Lifetime) No 06/24/2020 10:00 AM EDT Panfilo Kline LCS W-R * [place] Suicide Severity Rating Scale (Screener/Recent Self-Report) Question [...] encounter Results * Myocard Perf Spect Multiple [id number] [facility] (12/11/2019 8:45 PM EDT) Anatomical Region Laterality Modality Other 12/11/2019 9:02 AM EDT Narrative 12/11/2019 8:45 PM EDT [facility] [address] [place] [address] Regadenoson Stress Nuclear SPECT Report Name: TEJA DOUGLAS Exam Date: 12/11/2019 09:02 Ordering Phys: DB SELMA : 1970 Referring Phys:SELMA ACE Age: 49 Gender: F Ht (in):65 Wt (lb):163 BSA 1.84 Technologist: FRANKIE Procedure CPT: 08023 Indications: Other chest pain ICD Codes: R07.89 Cardiac History: palpitations [facility] Appropriateness Criteria: Cardiac Medications: pravastatin, [...] intravenously at rest. Resting SPECT images were [id number] minutes past injection. Post Stress Imagin.9 mCi of Tc-99m Sestamibi was injected intravenously at peak pharmacological stress. Post Stress SPECT images were [id number] minutes past tracer injection. Technical Quality: Technically [...] Procedure Note Historical, Cardiovascular Results, - 07/08/2020 [facility] [address] [place] [address] Regadenoson Stress Nuclear SPECT Report Name: TEJA DOUGLAS Exam Date: 12/11/2019 09:02Ordering Phys: SELMA ACE : 1970Referring Phys:SELMA ACE Age: 49 Gender: F Ht (in):65 Wt (lb):163 BSA 1.84Technologist: FRANKIE Procedure CPT: 30847 Indications: Other chest pain ICD Codes: R07.89 Cardiac History: palpitations [facility] Appropriateness Criteria: Cardiac Medications: pravastatin, [...] injectedintravenously at rest. Resting SPECT images were gamxeqwn46 minutes past injection. Post Stress Imagin.9 mCi of Tc-99m Sestamibi was injectedintravenously at peak pharmacological stress. Post Stress SPECT images were minutes past tracerinjection. Technical Quality: Technically adequate [...]
--- OUTSIDE RECORDS SUMMARY | 2020-01-23 01:00 | XMS_ITS | Encounter Summary ---
Author Organization [employer] [address] Care Team Providers Care Director Safety Council Name Role Phone Unavailable Primary Care Provider Unavailabl e Encounter Details Date Type Department Care Team (Latest Contact Info) Description 01/23/2020 Hospital Encounter TH HISTORIC ENCOUNTERS EASTERN CONVERSION ONLY Ruiz Simon PA [address] [place] [address] Other diseases of larynx Social History Tobacco [...] (Lifetime) No 06/24/2020 10:00 AM EDT Panfilo Kilne LCS W-R * [place] Suicide Severity Rating Scale (Screener/Recent Self-Report) Question [...] Associated Diagnosis Comments CT NECK W/CONT OP ([id number]) Routine 01/23/2020 8:49 AM EST documented in this encounter Results * CT NECK W/CONT OP ([id number]) (01/23/2020 8:49 AM EST) Anatomical Region Laterality Modality Computed Tomogra phy 01/23/2020 8:26 AM EST Narrative 01/23/2020 8:49 AM EST EXAMINATION: [phone] - CT NECK W/CONTRAST WORKING DIAGNOSIS: chest [...] Note Lavon Bartlett MD - 04/16/2020 EXAMINATION: [phone] - CT NECK W/CONTRAST WORKING DIAGNOSIS: chest [...]
--- OUTSIDE RECORDS SUMMARY | 2020-06-11 10:20 | XMS_ITS | Encounter Summary ---
Author Organization [employer] [place] [address] Care Team Providers Care Fur Dry Cleaner Hand Name Role Phone Frank Edmonds MD Primary Care Provider [phone] Encounter Details Date Type Department Care Team (Late st Contact Info) Description 06/11/2020 10:20 AM EDT Hospital Encounter [facility] [address] [facility] 2nd [place] [phone] Thaddeus De Anda MD [address] [place] [address] Social History Tobacco Use Types Packs/Day Years [...] money to get more. Never true 10/14/2020 [facility] Answer Date Re corded [...] 06/24/2020 10:0 0 AM EDT Kilts, Panfilo, HEAD ATHLETIC TRAINER/STRENGTH COACH-R Has subject engaged in non-suicidal self-injurious behavior? (Lifetime) No 06/24/2020 10:00 AM EDT Eliud Panfilo LC SW-R Interrupted Attempts (Lifetime) No 10:00 AM EDT AimeejasvirPanfilo HEAD ATHLETIC TRAINER/STRENGTH COACH-R Aborted or Self-Interrupted Attempt (Lifetime) No 06/24/2020 10:00 AM EDT Panfilo Kline LCS W-R Preparatory Acts or Behavior (Lifetime) No 06/24/2020 10:00 AM EDT AimeejasvirPanfilo LCS W-R * [place] Suicide Severity Rating Scale (Screener/Recent Self-Report) Question [...] on filedocumented in this encounter Care Teams Fur Dry Cleaner Hand Relationship Specialty Start Date End Date Frank Edmonds MD [address] [address] PCP - General 05/20/20 10/25/21 documented as of this encounter
--- OUTSIDE RECORDS SUMMARY | 2020-06-15 14:06 | XMS_ITS | Encounter Summary ---
Author Organization [employer] [place] [address] Care Team Providers Care Piping Blocker Name Role Phone Frank Edmonds MD Primary Care Provider Encounter Details Date Type Department Care Team (Late st Contact Info) Description 06/15/2020 2:06 PM EDT Hospital Encounter [facility] PR[facility] [address] [place] [phone] Darinel Sanchez MD [address] [place] [address] Social History Tobacco Use Types [...] money to get more. Never true 10/14/2020 [facility] Answer Date Re corded How [...] 06/24/2020 10:0 0 AM EDT Kilts, Panfilo, REDRAWER-R Has subject engaged in non-suicidal self-injurious behavior? (Lifetime) No 06/24/2020 10:00 AM EDT Panfilo Kline, DONAL SW-R Interrupted Attempts (Lifetime) No 10:00 AM EDT Panfilo Kline LCSW-R Aborted or Self-Interrupted Attempt (Lifetime) No 06/24/2020 10:00 AM EDT Panfilo Kline LCS W-R Preparatory Acts or Behavior (Lifetime) No 06/24/2020 10:00 AM EDT Panfilo Kline, LETITIA W-R * [place] Suicide Severity Rating Scale (Screener/Recent Self-Report) Question [...] on filedocumented in this encounter Care Teams Piping Blocker Relationship Specialty Start Date End Date Frank Edmonds MD [address] [phone] PCP - General 05/20/20 10/25/21 documented as of this encounter
--- OUTSIDE RECORDS SUMMARY | 2024-12-11 09:34 | XMS_ITS | Clinical Summary ---
Author Organization [facility] Address [address] [place] [address] Phone Care Team Providers Care Product Picker Name Role Phone Physician, No Pcp Primary [...] Eye exam every 2 years Chronic myelopathy ([facility] V24, [facility] V28) Anxiousness 04/18/2021 History of percutaneous coronary intervention Coronary artery disease invo lving [place] heart without angina pectoris 11/19/2020 [...] wks NSTEMI (non-ST elevated myoc ardial infarction) ([facility] V24, [facility] V28) 10/11/2020 Overview (10/12/2020): Added automatically from request for surgery [id number] Assessment & Plan (10/12/2020 3:40 PM EDT): - s/p cardiac cath-This is consistent with a nonhemodynamically significant stenosis. -AAC remains on consult -Troponins-0.015-->0.50-->0.651-->0.327 -tele monitor - Cardio requested CTA r/o PE, U/S bilateral lower legs- r/o DVT and ECHO -asa/plavix/toprol/lipitor Severe episode of recurrent major depressive disorder, without psychotic features ([facility] V24, [facility] V28) 08/26/2020 Somatoform disorder, unspecified 07/22/2020 Obsessive-compulsive disorder 07/22/2020 Episode of recurrent major d epressive disorder ([facility] V24) 07/22/2020 Breast neoplasm 04/01/2020 Panic [...] your next appointment. Limit the use of [id number] and prescription pain medications to 2 - [...] urge urinary incontinence 08/23 Borderline personality disorder (CMS/[facility] V24, CM S/HCC V28) 08/22/2016 Temporomandibular [...] pain 01/18/2016 1 Fibromyalgia 03/16/2015 11/26/2021 Immunizations Immunization Administration Dates Next Due Influenza Quadrivalent, 0.5m l, preservative free (Fluarix; FluLaval; Fluzone) ages 6mo and older (Afluria) 3yo and older 11/14/2016 Influenza Quadrivalent, with preservative (Fluzone; Afluria) 6mo and older 01/18/2016 Agendize/CleanBeeBaby SARS-CoV-2 COVID -19, vector-nr, [id number], preservative free [...] TONSILLECTOMY ADENOIDECTOMY, BILATERAL MYRINGOTOMY AND TUBES PROCEDURE: HI TONSILLECTOMY & ADENOIDECTOMY <AGE 12 OTHER SURGICAL HISTORY PROCEDURE: HI ARTHRS KNEE W/MENISCECTOMY MED&LAT W/SHAVING; COMMENT: left side OTHER SURGICAL HISTORY PROCEDURE: HI DILATION & CURETTAGE DX&/THER NONOBSTETRIC; COMMENT: 3 [...] money to get more. Never true 10/14/2020 [facility] Answer Date Re corded How [...] Last Done Comments Breast Cancer Screening 1972 Colorectal Cancer Screening: Colonoscopy 1972 DTaP,Tdap,and Td Vaccines (1 - Tdap) 1991 Hepatitis B Vaccines (1 of 3 - 19+ 3-dose series) 1991 Pneumococcal Vaccine: 50+ Years (1 of 2 - PCV) 1991 Zoster Vaccines (1 of 2) 1991 Medicare Annual Wellness Visit 02/28/2019 Social Influencers [...] this topic Medical Devices Implanted Type Area [employer] Crm Developer Device Identifier Shelf Expiration Date Model / Serial / Lot Stents Left: Heart Procedures Procedure Name Priority Date/Time Associated Diagnosis Comments COMPREHENSIVE METABOLIC PANEL STAT 02/02/2022 7:58 AM EST ..HEPATITIS C VIRUS ANTIBODY REFLEX TO PCR INTERPRETATION Routine 10/26/2021 2:27 PM EDT Encounter for hepatitis C [...] LAB CHEMISTRY METHOD 02/02/2022 8:51 AM EST [facility] Potassium 3.1(L) 3.5 - 5.1 mmol/L LAB CHEMISTRY METHOD 02/02/2022 8:51 AM [facility] Chloride 114(H) 98 - 107 mmol/L LAB CHEMISTRY METHOD 02/02/2022 8:51 AM [facility] CO2 21 21 - 32 mmol/L LAB CHEMISTRY METHOD 02/02/2022 8:51 AM [facility] Anion Gap 8 3 - 11 LAB CHEMISTRY METHOD 02/02/2022 8:51 AM [facility] Glucose 104(H) 70 - 99 mg/dL LAB CHEMISTRY METHOD 02/02/2022 8:51 AM [facility] BUN 10 7 - 18 mg/dL LAB CHEMISTRY METHOD 02/02/2022 8:51 AM [facility] Creatinine 0.80 0.55 - 1.02 mg/dL LAB CHEMISTRY METHOD 02/02/2022 8:51 AM [facility] eGFR 90 >=60 mL/min/1. 73m2 LAB CHEMISTRY METHOD 02/02/2022 8:51 AM [facility] Comment: The MDRD GFR formula is valid only for adults between ages 18 and 70. Effective November 21, 2021, calculation based on the Chronic Kidney Disease Epidemiology Collaboration (CKD-EPI) equation refit without adjustment for race. BUN/Creatinine Ratio 12.5 12.0 - 20.0 LAB CHEMISTRY METHOD 02/02/2022 8:51 AM [facility] Calcium 9.0 8.5 - 10.1 mg/dL LAB CHEMISTRY METHOD 02/02/2022 8:51 AM [facility] AST (SGOT) 12(L) 15 - 37 unit/L LAB CHEMISTRY METHOD 02/02/2022 8:51 AM [facility] ALT (SGPT) 17 13 - 56 unit/L LAB CHEMISTRY METHOD 02/02/2022 8:51 AM [facility] Alkaline Phosphatase 72 42 - 98 unit/L LAB CHEMISTRY METHOD 02/02/2022 8:51 AM [facility] Total Protein 7.0 6.4 - 8.2 g/dL LAB CHEMISTRY METHOD 02/02/2022 8:51 AM [facility] Albumin 3.8 3.4 - 5.0 g/dL LAB CHEMISTRY METHOD 02/02/2022 8:51 AM [facility] Total Bilirubin 0.6 0.2 - 1.0 mg/dL LAB CHEMISTRY METHOD 02/02/2022 8:51 AM [facility] Blood Venous blood specimen / Unknown Venipuncture / Unknown 02/02/2022 7:58 AM EST 02/02/2022 8:04 AM EST us Adonis Stephen DO LAB BLOOD ORDERABLES Final Res ult Performing Organization Address [facility]/ZIP Co de Phone Number [facility] [address] [place] [address] * Hepatitis c virus antibody reflex to molecular study interpretation (10/26/2021 2:27 PM EDT) Interpretation Note 10/28/2021 4:05 AM EDT [facility] Comment: Negative Not infected with HCV, unless recent infection is suspected or other evidence exists to indicate HCV infection. Blood Venous blood specimen / Unknown Venipuncture / Unknown 10/26/2021 2:27 PM EDT 10/26/2021 2:27 PM EDT Narrative [facility] - 10/28/2021 4:05 AM EDT Performed at: [facility] [id number] Talent Development Consultant: Yahir Moss MD, Phone: [phone] us Gale Howard NP LAB BLOOD ORDERABLES Final Res ult [facility] * HIV 1, HIV 2 antibody screen, P24 antigen with reflex to differentiation (10/26/2021 2:27 PM EDT) Pathologist [facility] HIV Combo AB/AG Negative/ Nonreacti ve Negative/ Nonreacti ve LAB CHEMISTRY METHOD 10/27/2021 5:14 PM EDT [facility] Blood Venous blood specimen / Unknown Venipuncture / Unknown 10/26/2021 2:27 PM EDT 10/26/2021 2:27 PM EDT Narrative [facility] - 10/27/2021 5:14 [...] AB differentiation, and HIV-1 RNA detection by Refinery Operator Assistant-Mediated Amplification (TMA) and if positive, quantitation by Real-Time PCR. us Gale Howard NP LAB BLOOD ORDERABLES Final Res ult [facility] [address] [place] [address] * (ABNORMAL) Lipid panel (10/26/2021 2:27 PM EDT) [facility] Cholesterol 153 <200 mg/dL LAB CHEMISTRY METHOD 10/26/2021 4:57 PM EDT [facility] Triglycerides 157(H) <150 mg/dL LAB CHEMISTRY METHOD 10/26/2021 4:57 PM EDT [facility] HDL 49(L) >59 mg/dL LAB CHEMISTRY METHOD 10/26/2021 4:57 PM EDT [facility] Comment: <35 mg/dl is the cut-point for increased Coronary Heart Disease (CHD) risk. LDL Calculated 73 0 - 99 mg/dL LAB CHEMISTRY METHOD 10/26/2021 4:57 PM EDT [facility] VLDL Cholesterol Francisco 31.4(H) <=30 mg/dL LAB CHEMISTRY METHOD 10/26/2021 4:57 PM EDT [facility] Blood Venous blood specimen / Unknown Venipuncture / Unknown 10/26/2021 2:27 PM EDT 10/26/2021 2:27 PM EDT Gale Howard NP LAB BLOOD ORDERABLES Final Res ult [facility] [address] [place] [address] * Cervical Cancer Screening: HPV (12/02/2019) Pathologist [facility] Cervical Cancer Screening: HPV abstracted [...] currently active code status orders. Care Teams Product Picker Relationship Specialty Start Date End Date Physician, No Pcp PCP - General 02/02/22
[2024-12-11 14:24] LABS: Alanine Aminotransferase 8 U/L (0-31); Albumin Level 4.5 g/dL (3.5-5.0); Alkaline Phosphatase 68 U/L (39-117); Anion Gap 14 (12-20); Aspartate Amino Transferase 21 U/L (5-31); Blood Urea Nitrogen 10 mg/dL (9-16); Calcium 9.8 mg/dL (8.4-10.2); Carbon Dioxide 26 mmol/L (22-29); Chloride 109 mmol/L (96-108); Estimated Glomerular Filt Rate > 60; Potassium 4.1 mmol/L (3.3-5.1); Sodium 145 mmol/L (135-145); Total Protein 6.9 g/dL (6.5-8.0)
== END 2024-12-11 08:02 | disposition home or self-care (01) ==
LOC: HO.HMGCLDS 08:01
PROVIDERS: PCP Internal Medicine; Visit Provider Internal Medicine
DX: I25.10 Atherosclerotic heart disease of native coronary artery without angina pectoris (principal); E78.9 Disorder of lipoprotein metabolism, unspecified; R73.01 Impaired fasting glucose; F42.8 Other obsessive-compulsive disorder; F41.1 Generalized anxiety disorder; F33.41 Major depressive disorder, recurrent, in partial remission; G58.8 Other specified mononeuropathies; N39.46 Mixed incontinence; G89.29 Other chronic pain; F17.210 Nicotine dependence, cigarettes, uncomplicated; F11.20 Opioid dependence, uncomplicated; Z79.899 Other long term (current) drug therapy
CPT/HCPCS: 36415; 80053; 83036; 83721; 84443; 99212

== ENCOUNTER 2025-01-08 11:06 | Outpatient (AMB) | payer MEDICARE, MEDICAID, SELFPAY ==
--- OUTSIDE RECORDS SUMMARY | 2019-11-24 23:00 | XMS_ITS | Encounter Summary ---
Author Organization [place] [address] Care Team Providers Care Supervisor Process Testing Name Role Phone Unavailable Primary Care Provider Unavailabl e Encounter Details Date Type Department Care Team (Late st Contact Info) Description 11/25/2019 Hospital Encounter TH HISTORIC ENCOUNTERS EASTERN CONVERSION ONLY Selma Ace MD [address] [place] [address] Other chest pain Social History Tobacco Use [...] money to get more. Never true 10/14/2020 [facility] Answer Date Re corded How [...] AM EST documented as of this encounter Functional Status * Calculated C-SSRS Risk Score (Lifetime/Recent) Answer Date of Assessment Author No Risk Indicated 02/02/2022 7:37 AM EST Obie Boateng, LEOBARDO * Suicidal Ideation Question Answer Date of Assessment Author 1. Wish to be (Lifetime) No 06/24/2020 10:00 AM Panfilo Barkley LCSW-R 2. Non-Specific Active Suici aminata Thoughts (Lifetime) No 06/24/2020 10:00 AM Panfilo Barkley LCS W-R * Suicidal Behavior Question Answer Date of Assessment Author Actual Attempt (Lifetime) No 06/24/2020 10:0 0 AM Panfilo Barkley LCSW-R Has subject engaged in non-suicidal self-injurious behavior? (Lifetime) No 06/24/2020 10:00 AM EDT Kilts, Panfilo, LC SW-R Interrupted Attempts (Lifetime) No 10:00 AM EDT Panfilo Kline, SOFTWARE TEST ANALYST-R Aborted or Self-Interrupted Attempt (Lifetime) No 06/24/2020 10:00 AM EDT Panfilo Kline, LCS W-R Preparatory Acts or Behavior (Lifetime) No 06/24/2020 10:00 AM EDT Panfilo Kline, LCS W-R * [place] Suicide Severity Rating Scale (Screener/Recent Self-Report) Question Answer Date of Assessment Author 1. Wish to be (Past 1 Month) No 022 7:37 AM Obie Grady RN 2. Non-Specific Active Suici aminata Thoughts (Past 1 Month) No 02/02/2022 7:37 AM Obie Grady RN 6. Suicidal Behavior (Lifetime) No 7:37 AM Obie Grady RN documented as of this encounter Plan of Treatment Not on file documented as of this encounter Procedures Procedure Name Priority Date/Time Associated Diagnosis Comments TTE W/DOPPLER COMPLETE Routine 11/26/2019 10:09 AM EDT STRESS TEST CARDIAC TRACING Routine 11/25/2019 7:37 PM EDT documented in this encounter Results * TTE W/Doppler Complete [id number] [facility] (11/26/2019 10:09 AM EDT) Anatomical Region Laterality Modality Other 11/25/2019 8:17 AM EDT Narrative 11/26/2019 10:09 AM EDT [facility] in Cardiology [address] [place] [address] Transthoracic Echocardiogram Report Name: ELENITA DOUGLAS Exam Date: 11/25/2019 08:17 Ordering Physician:SELMA ACE Age: 49 Gender: F Ht (in):65 Wt (lb): 168 Referring Physician:SHIRLEY WOLF BSA: 1.87 Restaurant Shift Supervisor: TREVOR : 1970 BP (mmHg): 108 / 70 Exam Location: [facility] Type of Exam: Adult CPT's: 41056 Clinical Indications:OTHER CHEST PAIN / LIGHTHEADED / [...] Peak Gradient 22.28 mmHg Cullen Nelson MD, [facility] (Electronically Signed) Final Date: 26 November 2019 10:08 Procedure Note Historical, Cardiovascular Results, - 07/08/2020 [facility] Cardiology [address] [place] [address] Transthoracic Echocardiogram Report Name: ELENITA DOUGLAS Exam Date: 11/25/2019 08:17Ordering Physician:SELMA ACE Age: 49 Gender: F Ht (in):65 Wt (lb): 168Referring Physician:SHIRLEY WOLF BSA: 1.87Sonographer: TREVOR : 1970 BP (mmHg): 108 / 70 Exam Location: [facility] Type of Exam: Adult CPT's: 57871 Clinical Indications:OTHER CHEST PAIN / LIGHTHEADED / [...] E to A Ratio 1.85 TR Peak Jlxmrhge177.00 cm/ MV Deceleration Time 153.54 ms TR Peak Iixaepyv08.28 mmHg Cullen Nelson MD, [facility] (Electronically Signed) Final Date: 26 November 2019 10:08 us Cardiovascular Results Historical CV HISTORIC AL CONV PROCEDURES Final Result * Stress Test Cardiac Tracing [id number] [facility] (11/25/2019 7:37 PM EDT) Anatomical Region Laterality Modality Other 11/25/2019 9:09 AM EDT Narrative 11/25/2019 7:37 PM EDT [facility] in Cardiology [address] [place] [address] Stress Test Report Name: ELENITA DOUGLAS Exam Date: 11/25/2019 09:09 Ordering Phys: SELMA ACE Exam Location: [facility] Referring Phys:SHIRLEY WOLF Age: 49 Gender: F Ht (in):65 Wt (lb):163 BSA 1.84 Technologist: leobardo edmondson : 1970 Procedure CPT: 46343 Indications: Other chest pain, Palpitations, Other forms of dyspnea, Bradycardia, unspecified ICD-9 Codes: R07.89 R00.2 R06.09 R00.1 Patient History: chest pain, dyspnea, palpitations Medications: propanolol, pravastatin STRESS TEST Ovi Protocol Exercise Duration (min:sec):6:00 METS: 7.0 mets Resting HR (bpm):79 Resting BP (mmHg): 132 /78 MPHR: 147 Target HR: 7499 Peak HR (bpm): 134 Peak BP (mmHg): 152 /86 % MPHR: 77 Double Product: BP Response: Normal blood pressure response during [...] Note Historical, Cardiovascular Results, MD - 07/08/2020 [facility] Cardiology [address] [place] [address] Stress Test Report Name: ELENITA DOUGLAS Exam Date: 11/25/2019 09:09Ordering Phys: SELMA ACE Exam [facility]Referring Phys:SHIRLEY LUCIANO Age: 49 Gender: F Ht (in):65 Wt (lb):163 BSA 1.84Technologist: leobardo edmondson : 1970 Procedure CPT: 77288 Indications: Other chest pain, Palpitations, Other forms of dyspnea,Bradycardia, unspecified ICD-9 Codes: R07.89 R00.2 R06.09 R00.1 Patient History: chest pain, dyspnea, palpitations Medications: propanolol, pravastatin STRESS TEST Ovi Protocol Exercise Duration(min:sec):6:00 METS: 7.0 mets Resting HR (bpm):79 Resting BP (mmHg): 132 /78 MPHR: 147Target HR: 7499 Peak HR (bpm): 134 Peak BP (mmHg): 152 /86 % MPHR: 77Double Product: BP Response: Normal blood pressure response during [...] a longer beta-shailesh hold or pharmacologicstress. Dr. Christoph Sinclair (Electronically Signed) Final Date: 25 November 2019 18:57 us Cardiovascular Results Historical CV HISTORIC AL CONV PROCEDURES Final Result documented in this encounter Visit Diagnoses Diagnosis Other chest pain documented in this encounter
--- OUTSIDE RECORDS SUMMARY | 2019-12-10 23:00 | XMS_ITS | Encounter Summary ---
Author Organization [employer] [place] [address] Care Team Providers Care Show Operations Supervisor Name Role Phone Unavailable Primary Care Provider Unavailabl e Encounter Details Date Type Department Care Team (Late st Contact Info) Description 12/11/2019 Hospital Encounter TH HISTORIC ENCOUNTERS EASTERN CONVERSION ONLY Selma Ace MD [address] [place] [address] Palpitations Social History Tobacco Use Types Packs/Day Years [...] to get more. Never true 10/14/2020 [facility] Answer Date Re corded How [...] Attempt (Lifetime) No 06/24/2020 10:0 0 AM REBECCAT Panfilo Kline LCSW-R Has subject engaged in non-suicidal self-injurious behavior? (Lifetime) No 06/24/2020 10:00 AM REBECCAT Kilts, Panfilo, LC SW-R Interrupted Attempts (Lifetime) No 10:00 AM EDT Aimeejasvir Panfilo, CONFECTIONERY LABORATORY MANAGER-R Aborted or Self-Interrupted Attempt (Lifetime) No 06/24/2020 10:00 AM EDT Panfilo Kline LCS W-R Preparatory Acts or Behavior (Lifetime) No 06/24/2020 10:00 AM EDT Panfilo Kline LCS W-R * [place] Suicide Severity Rating Scale (Screener/Recent Self-Report) Question [...] Procedure Name Priority Date/Time Associated Diagnosis Comments MYOCARD PERF SPECT MULTIPLE Routine 12/11/2019 8:45 PM EDT documented in this encounter Results * Myocard Perf Spect Multiple [address] [facility] (12/11/2019 8:45 PM EDT) Anatomical Region Laterality Modality Other 12/11/2019 9:02 AM EDT Narrative 12/11/2019 8:45 PM EDT [facility] in Cardiology [address] [place] [address] Regadenoson Stress Nuclear SPECT Report Name: TEJA DOUGLAS Exam Date: 12/11/2019 09:02 Ordering Phys: DB SELMA : 1970 Referring Phys:SELMA ACE Age: 49 Gender: F Ht (in):65 Wt (lb):163 BSA 1.84 Technologist: FRANKIE Procedure CPT: 27550 Indications: Other chest pain ICD Codes: R07.89 Cardiac History: palpitations [facility] Appropriateness Criteria: Cardiac Medications: pravastatin, propranolol er Medications held in past 24 hours: STRESS PROTOCOL Pharmacologic Stress Agent:Regadenoson ( injected Dose: .4mg intravenously over 10 seconds and immediately followed by Stress Radionuclide Dose) Treadmill Activity:Not Used Resting HR (bpm):67 Resting BP (mmHg): 118 /80 Peak HR (bpm): 101 Peak BP (mmHg): 124 /72 58.4 % MPHR Double Product: Symptoms BP ECG RESPONSE Resting ECG: Normal sinus rhythm Stress ECG: No abnormal ST/T wave changes with pharmacologic stress. Arrhythmia: None SPECT RESULTS Protocol:1 Day Sestamibi Rest Imagin.3 mCi of Tc-99m Sestamibi was injected intravenously at rest. Resting SPECT images were oovirbku61 minutes past injection. Post Stress Imagin.9 mCi of Tc-99m Sestamibi was injected intravenously at peak pharmacological stress. Post Stress SPECT images were minutes past tracer injection. Technical Quality: Technically adequate study Raw Data Analysis: Prominent hepatic and gut uptake with subsequent relative decrease in counts in adjacent myocardium. Perfusion: Stress images show a normal pattern of perfusion. Resting images show no change in the pattern of perfusion. FUNCTION (calculated via Gated SPECT) - (Male / Female) Normal Values: Post Stress LV EF:74 % TID: 1.09 EDV: 68 ml (93-153 / 61-99 ml)ESV: 18 ml (31-71 / 17-35 ml) EDVI: 37 ml/m (46-76 / 36-56 ml/m )ESVI: 10 ml/m (16-36 / 10-20 ml/m ) Technical Quality: Gated SPECT appears to be visually accurate LV Size LV Regional Function: Gated images show normal wall motion. Gated images show normal systolic thickening. No wall motion or thickening abnormalities. Right Ventricle: Right ventricle appears normal in size. ECG Response to Stress:Normal Left Ventricular Function:Normal Perfusion Imaging: Probably Normal Risk Assessment: Low risk CONCLUSIONS Perfusion scan negative for ischemia. No wall motion or thickening abnormalities. Prominent hepatic and gut uptake with subsequent relative decrease in counts in adjacent inferior myocardium. A very small amount of ischemia is not excluded in that area. Gated SPECT study shows post stress LV EF was 74%. Technically limited study. Dr. David Headley MD (Electronically Signed) Final Date: 11 December 2019 20:44 Procedure Note Historical, Cardiovascular Results, - 07/08/2020 [facility] in Cardiology [address] [place] [address] Regadenoson Stress Nuclear SPECT Report Name: TEJA DOUGLAS Exam Date: 12/11/2019 09:02Ordering Phys: SELMA ACE : 1970Referring Phys:SELMA ACE Age: 49 Gender: F Ht (in):65 Wt (lb):163 BSA 1.84Technologist: FRANKIE Procedure CPT: 98148 Indications: Other chest pain ICD Codes: R07.89 Cardiac History: palpitations [facility] Appropriateness Criteria: Cardiac Medications: pravastatin, propranolol er Medications held in past 24 hours: STRESS PROTOCOL Pharmacologic Stress Agent:Regadenoson ( injected Dose: .4mg intravenously over 10 seconds and immediately followed by Stress Radionuclide Dose) Treadmill Activity:Not Used Resting HR (bpm):67 Resting BP (mmHg): 118 /80 Peak HR (bpm): 101 Peak BP (mmHg): 124 /72 58.4 % MPHRDouble Product: Symptoms BP ECG RESPONSE Resting ECG: Normal sinus rhythm Stress ECG: No abnormal ST/T wave changes with pharmacologic stress. Arrhythmia: None SPECT RESULTS Protocol:1 Day Sestamibi Rest Imagin.3 mCi of Tc-99m Sestamibi was injectedintravenously at rest. Resting SPECT images were ikywhxwc82 minutes past injection. Post Stress Imagin.9 mCi of Tc-99m Sestamibi was injectedintravenously at peak pharmacological stress. Post Stress SPECT images were iqqgbjzn36 minutes past tracerinjection. Technical Quality: Technically adequate study Raw Data Analysis: Prominent hepatic and gut uptake with subsequentrelative decrease in counts in adjacent myocardium. Perfusion: Stress images show a normal pattern of perfusion. Resting images show no change in the pattern of perfusion. FUNCTION (calculated via Gated SPECT) - (Male / Female) Normal Values: Post Stress LV EF:74 % TID: 1.09 EDV: 68 ml (93-153 / 61-99 ml)ESV: 18 ml(31-71 / 17-35 ml) EDVI: 37 ml/m (46-76 / 36-56 ml/m )ESVI: 10ml/m (16-36 / 10-20 ml/m ) Technical Quality: Gated SPECT appears to be visually accurate LV Size LV Regional Function: Gated images show normal wall motion. Gated images show normal systolic thickening. No wall motion or thickening abnormalities. Right Ventricle: Right ventricle appears normal in size. ECG Response to Stress:Normal Left VentricularFunction:Normal Perfusion Imaging: Probably Normal Risk Assessment: Lowrisk CONCLUSIONS Perfusion scan negative for ischemia. No wall motion or thickening abnormalities. Prominent hepatic and gut uptake with subsequent relative decrease incounts in adjacent inferior myocardium. A very small amount of ischemia is not excluded in that area. Gated SPECT study shows post stress LV EF was 74%. Technically limited study. Dr. David Headley MD (Electronically Signed) Final Date: 11 December 2019 20:44 us Cardiovascular Results Historical CV HISTORIC AL CONV PROCEDURES Final Result documented in this encounter Visit Diagnoses Diagnosis Palpitations documented in this encounter
--- OUTSIDE RECORDS SUMMARY | 2020-01-23 | XMS_ITS | Encounter Summary ---
Author Organization [employer] [address] Care Team Providers Care Seat Scooper Machine Name Role Phone Unavailable Primary Care Provider Unavailabl e Encounter Details Date Type Department Care Team (Latest Contact Info) Description 01/23/2020 Hospital Encounter TH HISTORIC ENCOUNTERS EASTERN CONVERSION ONLY Ruiz Simon PA [address] [place] [address] Other diseases of larynx Social History Tobacco [...] money to get more. Never true 10/14/2020 [facility] Answer Date Re corded How [...] self-injurious behavior? (Lifetime) No 06/24/2020 10:00 AM Panfilo Barkley LC SW-R Interrupted Attempts (Lifetime) No 1 10:00 AM EDT Panfilo Kline LCSW-R Aborted or Self-Interrupted Attempt (Lifetime) No 06/24/2020 10:00 AM EDT Panfilo Kline LCS W-R Preparatory Acts or Behavior (Lifetime) No 06/24/2020 10:00 AM EDT Panfilo Kline LCS W-R * [place] Suicide Severity Rating Scale (Screener/Recent Self-Report) Question Answer Date of Assessment Author 1. Wish to be (Past 1 Month) No 022 7:37 AM EST Obie Boateng RN 2. Non-Specific Active Suici aminata Thoughts (Past 1 Month) No 02/02/2022 7:37 AM EST Obie Boateng RN 6. Suicidal Behavior (Lifetime) No 7:37 AM EST Obie Boateng RN documented as of this encounter Plan of Treatment Not on file documented as of this encounter Procedures Procedure Name Priority Date/Time Associated Diagnosis Comments CT NECK W/CONT OP (02294) Routine 01/23/2020 8:49 AM EST documented in this encounter Results * CT NECK W/CONT OP ([id number]) (01/23/2020 8:49 AM EST) Anatomical Region Laterality Modality Computed Tomogra phy 01/23/2020 8:26 AM EST Narrative 01/23/2020 8:49 AM EST EXAMINATION: [phone] - CT NECK W/CONTRAST WORKING DIAGNOSIS: chest [...] Note Lavon Bartlett MD - 04/16/2020 EXAMINATION: [phone] - CT NECK W/CONTRAST WORKING DIAGNOSIS: chest [...] on Jan 23 2020 8:47A [facility] IM[facility] CT PROCEDURES Final Result documented in this encounter Visit Diagnoses Diagnosis Other diseases of larynx documented in this encounter
--- OUTSIDE RECORDS SUMMARY | 2020-03-10 03:45 | XMS_ITS | Continuity of Care Document ---
Author Organization [facility] Address [address] [place] [address] Phone Care Team Providers Care Cyber Systems Operations Specialist Name Role Phone Jennifer BUSH, FACS, FAAOA, Katarzyna Unavailable Un available Allergies, Adverse Reactions, Alerts Substance Reaction Status Criticality No Known Allergies Active No Inform ation Medications Medication Instructions Dosage Effective Dates (start - stop) Status Comments Gaviscon Extra Strength 254 mg-237.5 mg/5 mL oral suspension take 15 milliliter by oral route every day throat pain 15 milliliter - Active Neilmed Sinus Rinse Complete with packet - Active famotidine 40 mg tablet take 1 tablet by oral route every day at bedtime 40 MG - Active diazepam 5 mg tablet take 1 tablet by oral route 2 times every day 5 MG - Active metoprolol succinate ER 50 mg tablet,extended release 24 hr take 1 tablet by oral route every day 50 MG - Active atorvastatin 40 mg tablet take 1 tablet by oral route every day 40 MG - Active aspirin 81 mg tablet,delayed release Take 1 tablet every day by oral route. - Active Brilinta 90 mg tablet Take 1 tablet twice a day by oral route. - Active isosorbide mononitrate ER 30 mg tablet,extended release 24 hr Take 1 tablet every day by oral route. - Active Miralax 17 gram oral powder packet Take 1 packet every day by oral route. - Active Nitrostat 0.[address] 1 TABLET (0.4 MG) BY SUBLINGUAL ROUTE EVERY 5 MINUTES NEEDEDFOR CHEST PAIN. DO NOT EXCEED 3 DOSES IN 15 MINUTES. - Active phenazopyridine 100 mg tablet TK 1 T PO TID PRN FOR DYSURIA - Active lamotrigine 200 mg tablet take 1 tablet by oral route every day 200 MG - Active propranolol 80 mg tablet take 1 tablet by oral route 2 times every day 80 MG - Active AJOVY SYRINGE (unknown strength) inject 1.5 milliliter by subcutaneous route every month in the abdomen, thigh, or upper arm Not Available - Active naratriptan 2.5 mg tablet take 1 tablet by oral route once may repeat after 4 hours 2.5 MG - Active prochlorperazine maleate 5 mg tablet take 1 tablet by oral route every 4 hours as needed for nausea and vomiting 5 MG - Active esomeprazole magnesium 40 mg capsule,delayed release take 1 capsule by oral route 2 times every day 40 MG - No Longer Active This replaces the omeprazole as of 01/31/2020 famotidine 20 mg tablet take 1 tablet by oral route 2 times every day 20 MG - No Longer Active Carafate 1 gram tablet take 1 tablet by oral route 2 times daily - No Longer Active Procedures Procedure Date Diagnostic Laryngoscopy Office/Outpatient Visit, Est Diagnostic Laryngoscopy Office/Outpatient Visit, Est Diagnostic Laryngoscopy Office/Outpatient Visit, Est Nasal Endoscopy, Dx Office/Outpatient Visit, New Advance Directives Directive Yes / No Effective Date File Name No Information Encounters Encounter Description Practice Location Reason(s) For Visit Diagnoses Date Provider Providers Copied on Encounter Office/Outpa tient Visit, Est [facility], [address] [place] [address], [address] [place] [address] , tel:[phone] Rodriguez Lump in throat (chief complaint) sore throat (chief complaint) Mass of epiglottisLaryngop haryngeal reflux (LPR)Dysphagia, unspecified typeAnxietyH/O heart artery stent 1 Jennifer Gusmana. [address] [place] [address], [id number], . tel:[phone] Specialist : Milind Finch MD, [address] [place] [address], [address]. tel:[phone] cialist: Miya Armendariz MD, [address] [facility] [address], [place], [address]. tel:[phone] cialist: Woodrow Bullock MD, [address] [place] [address], [address]. [phone] erring Provider: Frank dEmonds MD, Family Medicine [address] [place] [address], [address]. tel:[phone] [facility], [address] [place] [address], [address] [place] [address] , tel:[phone] Flex No Information 1 Flex Romeo. [address] [place] [address], [address] [place] [address], . tel:[phone] Referring Provider: Frank Edmonds MD, Family Medicine [address] [place] [address], [address]. tel:[phone] [facility], [address] [place] [address], [address] [place] [address] , tel:[phone] [place] No Information 0 No Information Referring Provider: Frank Edmonds MD, Family Medicine [address] [place] [address], [address]. tel:[phone] Office/Outpa tient Visit, [facility], [address] [place] [address], [address] [place] [address] , tel:[phone] Flex Dysphagia follow up (chief complaint) Current smokerDysphagia, unspecified typeAnxietyLaryngo pharyngeal reflux (LPR)Mass of epiglottis 0 Flex Romeo. [address] [place] [address], [id number], . tel:[phone] Specialist : Milind Finch MD, [address] [place] [address], [address]. tel:[phone] cialist: Miya Armendariz MD, [address] [place] [address], [address]. tel:[phone] cialist: Woodrow Bullock MD, [address] [place] [address], [address]. tel:[phone] erring Provider: Frank Edmonds MD, Family Medicine [address] [place] [address], [address]. tel:[phone] [facility], [address] [place] [address], [address] [place] [address] , tel:[phone] Patient Portal No Information 0 Jennifer Colón. [address] [place] [address], [address] [place] [address], . tel:[phone] Office/Outpa tient Visit, [facility], [address] [place] [address], [address] [place] [address] , tel:[phone] Simon Dysphagia (chief complaint) Dysphagia, unspecified typeLaryngopharyng eal reflux (LPR)AnxietyMass of epiglottisCurrent smoker 0 No Professor Of Poultry Science : Milind Finch MD, [address] [place] [address], [address]. tel:[phone] cialist: Miya Armendariz MD, [address] [place] [address], [address]. tel:[phone] cialist: Woodrow Bullock MD, [address] [place] [address], [address]. tel:[phone] erring Provider: Frank Edmonds MD, Family Medicine [address] [place] [address], [address]. tel:[phone] Office/Outpa tient Visit, [facility], [address] [place] [address], [id number] , tel:[phone] Setzen Facial pain (chief complaint) Headache around the eyesTMJ derangementDeviate d nasal septumReferred otalgia of both ears Aug-0 3-201 8 Renny Capone. [address] [facility], [place], [place], [id number], . tel:[phone] Specialist : Milind Finch MD, [address] [place], [address]. tel:[phone] cialist: Miya Armendariz, [address] [facility] [address], [place], [address]. tel:[phone] cialist: Woodrow Bullock MD, [address] [facility] [address], [place], [address]. tel:[phone] erring Provider: rFank Edmonds MD, Family Medicine [address] [place] [address], [address]. tel:[phone] Family History Family Member Type Diagnosis Age At Onset Father Problem (finding) Heart disease Payers Payer name Insurance type Covered green party ID Authoriza tion(s) MEDICARE PART B [id number] Social History Type Description Quantity Date Captured Comments Alcohol Use Details No Caffeine Use Details No Tobacco Use Status Ex-smoker Smoking Status Former smoker Smoking Tobacco Use Details Cigarette: No Details Available Cigarette: No Details Available Sex Female Vital Signs Date / Time: Height Weight BMI Pulse Rate Blood Pressure Temperature Respiratory Rate Body Surface Area Head Circumference Head Circ. Percentile Wt./Leo. Percentile BMI percentile Pulse Ox Inhaled Ox 8:47 AM 65.00 in 65.771 kg (145.00 lbs) 24.1 3 kg/m eter (2) 97.00 F 1.74 meter(2) Chief Complaint And Reason For Visit From encounter dated '03/10/2020 08:45'. Lump in throat (chief complaint). Description: The patient is also experiencing foreign body sensation in throat. The patient denies chest pain, cough, nausea, sore throat or vomiting. Additional information: She is using nexium and famotidine. She has tried sucralfate and it makes her feel nauseous so she stopped. sore throat (chief complaint). Description: Onset: 2 weeks ago. It occurs acutely. Pertinent negatives include chills, dyspnea, fever, not drinking, not eating, otalgia, rash and vomiting. Additionalinformation: Notes some worsening sore throat in the AM. She used [place] yesterday with relief. Stilhaving some difficulty swallowing pills (longstanding0. Reason For Referral Reason For Referral No Information Plan Of Treatment Date Type Action Status Goal Tobacco cessation counseling completed History Of Present Illness Encounter Date Complaint History Of Prese nt Illness sore throat Onset: 2 weeks a go. It occurs acutely. Pertinent negatives include chills, dyspnea, fever, not drinking, not eating, otalgia, rash and vomiting. Additional information: Notes some worsening sore throat in the AM. She used [place] yesterday with relief. Stil having some difficulty swallowing pills (longstanding0. Lump in throat The patient is a lso experiencing foreign body sensation in throat. The patient denies chest pain, cough, nausea, sore throat or vomiting. Additional information: She is using nexium and famotidine. She has tried sucralfate and it makes her feel nauseous so she stopped. Dysphagia follow up The symptoms are reported as being mild. The symptoms occur daily. Relieving factors include Esomeprazole, famotidine. She states the symptoms are chronic. 49-year-old female patient presents to the office with a history of dysphagia with pills, and severe LPR. Patient has been using esomeprazole and famotidine daily, states these work fairly well at controlling reflux. She admits she frequently forgets to take the pills. Patient presents to the office to discuss CT scan results regarding cystic mass visualized on epiglottis-based. I reviewed the CT scan and spoke with Dr. Rodriguez regarding this case. Patient and I discussed CT scan results which show cystic mass at base of epiglottis that is 0.8 x 0.5 x 0.6 centimeters. This appears to be a fluid-filled, cystic mass rather than a soft tissue mass or tumor. Patient demonstrated understanding. Patient has a history of severe anxiety, and follows the psychiatry for this condition. Patient recently underwent cardiac stent placement for heart disease and atherosclerosis. Overall, patient states she is doing well but is very nervous about CT scan results. She denies worsened dysphagia. Patient denies fever, chills, nausea, vomiting, dizziness, vertigo, otalgia, otorrhea, or any other problems of an otolaryngologic nature. Dysphagia The difficulty i n swallowing began 2 months ago. The symptoms are mild, unchanged and occur constantly. The symptoms cause food to stick in the throat. The patient has a history of reflux. The difficulty in swallowing is worsened by anxiety/stress. The patient denies relieving factors. The patient is also experiencing chest pressure or discomfort and foreign body sensation in throat. The patient denies anorexia, back pain, bloating, chest pain, choking, cough, cough following swallowing, decreased appetite, early satiety, epigastric pain, food on pillow in AM, food sticking, forced regurgitation, halitosis, heartburn, hoarseness, nasal regurgitation, nausea, oral regurgitation, sore throat, vomiting, weight gain or weight loss. Facial pain Onset: gradual. Duration of pain when it occurs is continuous. The severity of the problem is moderate. The problem has worsened. The frequency of pain is persistent. Location of pain is bilateral forehead, around both eyes, temples and top of head. The patient describes the pain as aching, throbbing, head pressure and sharp. Symptoms are triggered by too hot, sunlight and nil specific. Risk factors include chronic headaches and eye pain. The etiology is migraine headaches. 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 Additional information: Was in [facility] ER last week - left arm pain, numbness and weakness - severe migraine related. Imaging showed possible dental/sinus issue. Had prior left maxillary dental extraction, with bone erosion. Facial pain Elenita is a de lightful 47-year-old female patient with chronic headaches, neck issues, ear pain and recent left upper extremity symptoms undergoing evaluation. She had CT imaging and MRI scans of the neck and brain demonstrating possible bone erosion, possibly associated with pride dental extraction and sinus inflammatory changes. She was referred for further consultation in this regard. She does not have any significant allergy issues that she reports but has been treated with Flonase for cough and post nasal drainage in the past. She was told that she needed oral surgery for severe TMJ and this was unaffordable and she has avoided chewing gum and other factors that aggravate TMJ. She has bad jaw clicking. Headaches are variable and intense. She saw an dye reel operator helper who told her that her eyes were okay. There were no other new significant otolaryngological complaints. Functional Status Date Functional Assessmen t No Information Instructions Date Instruction Additional Infor mation The patient was seen today for evaluation regarding constant pill dysphagia she has had over the past two months. Anterior oral examination was essentially unremarkable, therefore a laryngoscopy was performed. This did reveal erythema and edema of her arytenoids and of her epiglottis consistent with severe reflux. We discussed starting treatment for this as outlined below. Related to Dysphagia, unspecified type She has evidence of severe the laryngopharyngeal reflux on laryngoscopy today. She states she did have a normal upper endoscopy with her boxing and pressing supervisor several months ago. I will request records of this. I recommend that she start a proton pump inhibitor BID, she would like to try esomeprazole pending insurance coverage. I would also like her to start famotidine 20 mg b.i.d. We discussed behavioral modification measures for control of reflux including avoidance of trigger foods such as foods that are spicy or acidic, chocolate, mint, caffeine, as well as avoidance of eating within two hours of supine sleep. Related to Laryngopharyngeal reflux (LPR) Her laryngoscopy tod ay does show evidence of cystic lesions on the lingual surface of her epiglottis on the right side. No bleeding, scabbing, or ulcerations are seen. I recommend further evaluation with a neck CT with contrast. I will see her back in one month, sooner if needed. Related to Mass of epiglottis She admits to histor y of very severe and chronic anxiety, her therapist and psychiatrist has had difficulty getting the symptom under control. They are also suspicious for somatoform disorder. Her chronic anxiety likely contributes to her severe reflux. Related to Anxiety Assessments Type Assessment Date assessment Mass of epiglottis assessment Laryngopharyngeal reflux (LPR) J impression Once a history of re flux, followed by G.I. She's using Nexium and famotidine. She continues to have what seem to be breakthrough symptoms was recommended to take sucralfate. She feels as though this creates worsening symptoms and instead I will have her trial Kadeem and continue care for her G.I. assessment Dysphagia, unspecified type impression Benign appearing muc ous cyst - stable. Not causing throat pain symptoms. assessment Anxiety assessment H/O heart artery stent 21 impression She had cardiac sten ts last fall. Continue care per cardiology. impression The patient admits t o severe anxiety both with regards to reflux issues and up aquatic cyst. She was reassured by the stable laryngoscopy findings impression Long-standing histor y of difficulty swallowing particularly with pills. She had a normal esophagus and in December 2019, but declined taking the pill at that time. Patient Care Teams Name Effective Dates (start - stop) Status Members No Information
--- OUTSIDE RECORDS SUMMARY | 2020-06-11 09:20 | XMS_ITS | Encounter Summary ---
Author Organization [facility] [address] Care Team Providers Care Ink Maker Name Role Phone Frank Edmonds MD Primary Care Provider Encounter Details Date Type Department Care Team (Late st Contact Info) Description 06/11/2020 10:20 AM EDT Hospital Encounter [facility] [address] [facility] 2nd [place] [phone] Thaddeus De Anda MD [address] [place] [address] Social History Tobacco Use Types Packs/Day Years [...] money to get more. Never true 10/14/2020 [facility] Answer Date Re corded How [...] to be (Lifetime) No 06/24/2020 10:00 AM REBECCAT Panfilo Kline LCSW-R 2. Non-Specific Active Suici aminata Thoughts (Lifetime) No 06/24/2020 10:00 AM REBECCAT Panfilo Kline LCS W-R * Suicidal Behavior Question Answer Date of Assessment Author Actual Attempt (Lifetime) No 06/24/2020 10:0 0 AM EDT Kilts, Panfilo, RIGGER CHIEF-R Has subject engaged in non-suicidal self-injurious behavior? (Lifetime) No 06/24/2020 10:00 AM EDT Eliud Panfilo LC SW-R Interrupted Attempts (Lifetime) No 10:00 AM EDT AimeejasvirPanfilo RIGGER CHIEF-R Aborted or Self-Interrupted Attempt (Lifetime) No 06/24/2020 10:00 AM EDT Panfilo Kline LCS W-R Preparatory Acts or Behavior (Lifetime) No 06/24/2020 10:00 AM EDT AimeejasvirPanfilo LCS W-R * [place] Suicide Severity Rating Scale (Screener/Recent Self-Report) Question [...] on filedocumented in this encounter Care Teams Ink Maker Relationship Specialty Start Date End Date Frank Edmonds MD [address] [address] PCP - General 05/20/20 10/25/21 documented as of this encounter
--- OUTSIDE RECORDS SUMMARY | 2020-06-15 13:06 | XMS_ITS | Encounter Summary ---
Author Organization [place] [address] Care Team Providers Care Consulting Technical Manager Name Role Phone Frank Edmonds MD Primary Care Provider Encounter Details Date Type Department Care Team (Late st Contact Info) Description 06/15/2020 2:06 PM EDT Hospital Encounter [facility] PROS [address] [place] [phone] Darinel Sanchez MD [address] [place] [address] Social History Tobacco Use Types Packs/Day Years [...] 06/24/2020 10:0 0 AM EDT Kilts, Panfilo, INBOUND SALES CONSULTANT-R Has subject engaged in non-suicidal self-injurious behavior? (Lifetime) No 06/24/2020 10:00 AM EDT Panfilo Kline, DONAL SW-R Interrupted Attempts (Lifetime) No 10:00 AM EDT Panfilo Kline LCSW-R Aborted or Self-Interrupted Attempt (Lifetime) No 06/24/2020 10:00 AM EDT Panfilo Kline LCS W-R Preparatory Acts or Behavior (Lifetime) No 06/24/2020 10:00 AM EDT Panfilo Kline, LETITIA W-R * [place] Suicide Severity Rating Scale (Screener/Recent Self-Report) Question [...] on filedocumented in this encounter Care Teams Consulting Technical Manager Relationship Specialty Start Date End Date Frank Edmonds MD [address] [phone] PCP - General 05/20/20 10/25/21 documented as of this encounter
[2025-01-08 11:16] VITALS: BP 118/74; PULSE 76; O2SAT 96; BMI 18.3
--- NOTE | 2025-01-08 11:16 | A.OFFPC_ITS ---
Vital Signs 01/08/25 11:16 Height 5 ft 5 in Weight 110 lb BMI 18.3 BP 118/74 Blood Pressure Location Lt brachial Position Sitting Pulse 76 Pulse Source Pulse Oximeter Pulse Oximetry (%) 96 Intake Visit Reasons: Medication review Allergies cefazolin (From [facility]) Allergy (Mild, Verified 01/08/25 11:17) Swelling Medication List - Last Reconciled 01/08/25 by Ciro White MD [Adult pull-ups Use As directed NS] atorvastatin 80 mg PO QPM omeprazole 20 mg PO DAILY oxycodone 5 mg PO BID 30 days sertraline 25 mg PO DAILY solifenacin 10 mg PO DAILY Tobacco use date assessed: 12/11/24 Dental Screening Dental Screen Date: 12/11/24 HPI HPI Comments History of Present Illness Details History of Present Illness The patient is a 54-year-old individual presenting for medication refills and management of chronic conditions. Mixed Incontinence: - The patient has mixed incontinence and requires paperwork for [employer] to cover medium-sized disposable pull-ups, with a usage of 8 per day. - The patient has been previously evalua kandy by a urologist , paper work filled Tobacco Use Disorder: - The patient smokes a pack of cigarette s per day and wishes to quit. - The patient requested a prescription f or 21 mcg nicotine patches, noting that [facility] is supposed to cover them, although a previous attempt to get coverage was unsuccessful. Psychiatric Conditions and Disability: - The patient is on disability, which wa s initiated prior to establishing care with this provider. - The primary reason for disability is b ased on psychiatric diagnoses, including obsessive-compulsive disorder, severe anxiety, and depression. - The patient is established with a psyc hiatrist. Chronic Pain: - The patient has been diagnosed with in tercostal neuralgia and takes Oxycodone twice daily for management. Gastrointestinal Issues: - There is a noted history of nausea, in ability to gain weight, and diarrhea. - Previous attempts to arrange a gastroe nterology consultation have been unsuccessful due to missed appointments. Medical History: - Intercostal neuralgia - Mixed urinary incontinence, worked up by urology - Obsessive-compulsive disorder - Severe anxiety - Depression - History of gastrointestinal issues inc luding nausea, unable to gain weight, and diarrhea - History of cardiac issues/CAD - Patient is on disability for psychiatr ic reasons Social History: - Tobacco Use: The patient smokes one pa ck of cigarettes per day. - Living Situation: The patient lives wi th their mother. [facility], [facility] Medical History Obsessive compulsive disorder Agoraphobia Personality disorder Anxiety and depression 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) Surgical History Hx of dilation and curettage Hx of knee surgery Hx of tonsillectomy Family History Father Heart attack Hypertension Mother Hypertension Social History Household Members Other:: mom Housing: Condominium Alcohol intake: never Patient Tobacco Use Status: Current everyday Tobacco user Tobacco use type: Cigarette Years Smoked: 32 years e-Cigarette/Vaping Use: Never Used Second Hand Smoke Exposure: No service: No Current occupational status: disabled Current occupational exposures/hazards: No Sexual orientation: Straight/Heterosexual Gender identity: Female Cognitive needs: No Hearing needs: No Vision needs: Yes Questionnaire Thrive Questionnaire Date Thrive assessed: 02/28/24 I am a: Patient What is your living situation today?: I have a steady place to live Within the past 12 months, did the food you bought not last and you didn't have the money to get more?: I choose not to answer this question Within the past 12 months, did you worry whether your food would run out before you got money to buy more?: Never true Do you have trouble paying for medicines?: No Do you have trouble getting transportation to medical appointments?: No Do you have trouble paying your heating and electricity bill?: No Do you have trouble taking care of your child, family member or friend?: No Do you have trouble with day-to-day activities such as bathing, preparing meals, shopping, managing finances, etc.?: No Are you currently unemployed and looking for a job?: No Are you interested in more education?: No Please select the resources that you would like help with: None Currently or been in a relationship where the following occur: No concerns reported THRIVE Score: 0 FIFI-7 AMB Questionnaire FIFI-7 Date FIFI - 7 assessed: 02/28/24 Source: Developed by Drs. Dallas Keller, Cassie Frankel, Glynn Blackwell and colleagues, with an educational kane from [employer]. Review of Systems Narrative Review of Systems - General: No fever no chills - Neurological: No headaches - Ear nose throat: No sore throat no hearing difficulty no ear pain - Cardiovascular: No syncope, no chest pains - Gastrointestinal: No nausea vomiting or diarrhea Physical exam (Primary Care) Vital Signs: Last Vital Signs Pulse 76 01/08/25 11:16 BP 118/74 01/08/25 11:16 Pulse Ox 96 01/08/25 11:16 BMI result Body Mass Index 18.3 Tobacco/Smoking Status: Tobacco use Status Tobacco use date assessed 12/11/24 01/08/25 11:22 Patient Tobacco Use Status Current everyday Tobacco 01/08/25 11:22 Tobacco use type Cigarette 01/08/25 11:22 e-Cigarette/Vaping Use Never Used 01/08/25 11:22 Thrive Assessment: Date of Thrive Assessment Date Thrive assessed 02/28/24 01/08/25 11:22 Currently or been in a relationship where the following occur: No concerns reported Narrative Physical Exam General: No acute distress HEENT: No acute findings Neck: Supple Respiratory system: Able to talk in full sentences, no audible wheeze Cardiovascular: S1-S2 regular in rate and rhythm Gastrointestinal: Nausea and unable to gain weight, some diarrhea Extremities: No new findings INJECTION OPERATOR: Alert awake oriented x3 motor intact Skin: Normal turgor Coding Level of Care Code Complex visit Add On G2211 Diagnoses 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 Other obsessive-compulsive disorders F42.8 Obsessive-compulsive disorder type: other Anxiety, generalized F41.1 Recurrent major depressive disorder, in partial remission F33.41 Active/Remission status: in partial remission Mixed stress and urge urinary incontinence N39.46 Urinary Incontinence type: mixed stress and urge incontinence Chronic idiopathic pain syndrome G89.29 Smokes 1 pack of cigarettes per day F17.210 Chronic narcotic dependence F11.20 Assessment & Plan Assessment & Plan (1) Intercostal neuralgia: Code(s): G58.8 - Other specified mononeuropathies Category: Medical (2) Obsessive compulsive disorder: Code(s): F42.9 - Obsessive-compulsive disorder, unspecified Category: Medical Qualifiers: Obsessive-compulsive disorder type: other Qualified Code(s): F42.8 - Other obsessive-compulsive disorder (3) Anxiety, generalized: Code(s): F41.1 - Generalized anxiety disorder Category: Medical (4) Major depression, recurrent: Code(s): F33.9 - Major depressive disorder, recurrent, unspecified Category: Medical Qualifiers: Active/Remission status: in partial remission Qualified Code(s): F33.41 - Major depressive disorder, recurrent, in partial remission (5) Urine incontinence: Comment: Chronic. With microscopic hematuria. Being followed by Urology Code(s): R32 - Unspecified urinary incontinence Category: Medical Qualifiers: Urinary Incontinence type: mixed stress and urge incontinence Qualified Code(s): N39.46 - Mixed incontinence (6) Chronic idiopathic pain syndrome: Code(s): G89.29 - Other chronic pain Category: Medical (7) Smokes 1 pack of cigarettes per day: Code(s): F17.210 - Nicotine dependence, cigarettes, uncomplicated Category: Social Hx (8) Chronic narcotic dependence: Code(s): F11.20 - Opioid dependence, uncomplicated Category: Medical Plan Problem List - Mixed incontinence - Tobacco use disorder - Intercostal neuralgia - Obsessive-compulsive disorder - Severe anxiety - Depression - Chronic pain Plan - Mixed Incontinence: Will fax paperwork to [employer] for coverage of medium disposable pull-ups, 8 units per day. - Medical Records: Requested that the patient provide past urology records, specifically any blood work, ultrasound, cystoscopy, biopsy, imaging (CT), and the last two office notes. - Tobacco Cessation: Will send a new prescription for 21 mcg nicotine patches to the pharmacy for a trial of insurance coverage. - Pain Management: Will send a refill for oxycodone. - Disability Status: Counseled the patient that as a primary care provider, an opinion on disability cannot be given. - Disability Status: Informed the patient that medical records can be sent to the disability review board upon receipt of a signed consent. - Follow-up: The patient will follow up next month to assess the smoking cessation progress and for ongoing management. - Disability Status: Advised that the patient's psychiatrist is the appropriate provider to issue documentation regarding disability, as it is based on psychiatric diagnoses. Medications: New nicotine (Nicoderm CQ) 1 patch transdermal DAILY 28 ea 0RF Refilled oxycodone Partial Fill upon patient request. 5 mg PO BID 60 tabs 0RF pain 30 days
--- OUTSIDE RECORDS SUMMARY | 2025-01-08 13:51 | XMS_ITS | Clinical Summary ---
Author Organization [facility] Address [address] [place] [address] Phone Care Team Providers Care Manager Demand Name Role Phone Physician, No Pcp Primary [...] Eye exam every 2 years Chronic myelopathy ([facility] V24, [facility] V28) Anxiousness 04/18/2021 History of percutaneous coronary intervention Coronary artery disease invo lving ramona heart without angina pectoris 11/19/2020 Assessment & [...] wks NSTEMI (non-ST elevated myoc ardial infarction) ([facility] V24, [facility] V28) 10/11/2020 Overview (10/12/2020): Added automatically from request for surgery [id number] Assessment & Plan (10/12/2020 3:40 PM EDT): - s/p cardiac cath-This is consistent with a nonhemodynamically significant stenosis. -[facility] remains on consult -Troponins-0.015-->0.50-->0.651-->0.327 -tele monitor - Cardio requested CTA r/o PE, U/S bilateral lower legs- r/o DVT and ECHO -asa/plavix/toprol/lipitor Severe episode of recurrent major depressive disorder, without psychotic features ([facility] V24, [facility] V28) 08/26/2020 Somatoform disorder, unspecified 07/22/2020 Obsessive-compulsive disorder 07/22/2020 Episode of recurrent major d epressive disorder ([facility] V24) 07/22/2020 Breast neoplasm 04/01/2020 Panic disorder [...] your next appointment. Limit the use of [id number] and prescription pain medications to 2 - [...] urge urinary incontinence 08/23 Borderline personality disorder ([facility] V24, CM S/HCC V28) 08/22/2016 Temporomandibular joint [...] preservative (Fluzone; Afluria) 6mo and older 01/18/2016 [employer] SARS-CoV-2 COVID -19, vector-nr, rS-Ad26, preservative free [...] TONSILLECTOMY ADENOIDECTOMY, BILATERAL MYRINGOTOMY AND TUBES PROCEDURE: [place] TONSILLECTOMY & ADENOIDECTOMY <AGE 12 OTHER SURGICAL HISTORY PROCEDURE: [place] ARTHRS KNEE W/MENISCECTOMY MED&LAT W/SHAVING; COMMENT: left side OTHER SURGICAL HISTORY PROCEDURE: [place] DILATION & CURETTAGE DX&/THER NONOBSTETRIC; COMMENT: 3 [...] money to get more. Never true 10/14/2020 [facility] Answer Date Re corded How [...] 2) 1991 Medicare Annual Wellness Visit 02/28/2019 COVID-19 Vaccine (2 - Arleen risk series) 08/05/2020 07/08/2020 Social Influencers of Health Screening 10/14/2021 10/14/2020 Hypertension/CHF/CAD Annual BMP Blood Test 02/02/2023 02/02/2022, [...] this topic Medical Devices Implanted Type Area Nurse Ortho Device Identifier Shelf Expiration Date Model / [...] LAB CHEMISTRY METHOD 02/02/2022 8:51 AM EST [facility] Potassium 3.1(L) 3.5 - 5.1 mmol/L LAB CHEMISTRY METHOD 02/02/2022 8:51 AM [facility] Chloride 114(H) 98 - 107 mmol/L LAB CHEMISTRY METHOD 02/02/2022 8:51 AM [facility] CO2 21 21 - 32 mmol/L LAB CHEMISTRY METHOD 02/02/2022 8:51 AM [facility] Anion Gap 8 3 - 11 LAB CHEMISTRY METHOD 02/02/2022 8:51 AM [facility] Glucose 104(H) 70 - 99 mg/dL LAB CHEMISTRY METHOD 02/02/2022 8:51 AM [facility] BUN 10 7 - 18 mg/dL LAB CHEMISTRY METHOD 02/02/2022 8:51 AM [facility] Creatinine 0.80 0.55 - 1.02 mg/dL LAB CHEMISTRY METHOD 02/02/2022 8:51 AM [facility] eGFR 90 >=60 mL/min/1. 73m2 LAB CHEMISTRY METHOD 02/02/2022 8:51 AM [facility] Comment: The MDRD GFR formula is valid only for adults between ages 18 and 70. Effective November 21, 2021, calculation based on the Chronic Kidney Disease Epidemiology Collaboration (CKD-EPI) equation refit without adjustment for race. BUN/Creatinine Ratio 12.5 12.0 - 20.0 LAB CHEMISTRY METHOD 02/02/2022 8:51 AM [facility] Calcium 9.0 8.5 - 10.1 mg/dL LAB CHEMISTRY METHOD 02/02/2022 8:51 AM [facility] AST (SGOT) 12(L) 15 - 37 unit/L LAB CHEMISTRY METHOD 02/02/2022 8:51 AM [facility] ALT (SGPT) 17 13 - 56 unit/L LAB CHEMISTRY METHOD 02/02/2022 8:51 AM [facility] Alkaline Phosphatase 72 42 - 98 unit/L LAB CHEMISTRY METHOD 02/02/2022 8:51 AM [facility] Total Protein 7.0 6.4 - 8.2 g/dL LAB CHEMISTRY METHOD 02/02/2022 8:51 AM [facility] Albumin 3.8 3.4 - 5.0 g/dL LAB CHEMISTRY METHOD 02/02/2022 8:51 AM [facility] Total Bilirubin 0.6 0.2 - 1.0 mg/dL LAB CHEMISTRY METHOD 02/02/2022 8:51 AM [facility] Blood Venous blood specimen / Unknown Venipuncture / Unknown 02/02/2022 7:58 AM EST 02/02/2022 8:04 AM EST us Adonis Stephen DO LAB BLOOD ORDERABLES Final Res ult Performing Organization Address [facility]/ZIP Co de Phone Number [facility] [address] [place] [phone] * Hepatitis c virus antibody reflex to [...] 10/28/2021 4:05 AM EDT Performed at: [address] [id number] Audit Consultant: Yahir Moss MD, Phone: [phone] us Gale Howard NP LAB BLOOD ORDERABLES Final Res ult [facility] * HIV 1, HIV 2 antibody screen, P24 antigen with reflex to differentiation (10/26/2021 2:27 PM EDT) Pathologist [facility] HIV Combo AB/AG Negative/ Nonreacti ve Negative/ Nonreacti ve LAB CHEMISTRY METHOD 10/27/2021 5:14 PM EDT [facility] Blood Venous blood specimen / Unknown Venipuncture / Unknown 10/26/2021 2:27 PM EDT 10/26/2021 2:27 PM EDT Narrative [facility] - 10/27/2021 5:14 PM EDT [...] 5. Only REACTIVE results are reported to [facility]. 6. REACTIVE results will be sent to our Reference Laboratory for HIV-1 AB, HIV-2 AB differentiation, and HIV-1 RNA detection by Magnetic Testing Technician-Mediated Amplification (TMA) and if positive, quantitation by Real-Time PCR. us Gale Howard NP LAB BLOOD ORDERABLES Final Res ult [facility] [address] [place] [address] * (ABNORMAL) Lipid panel (10/26/2021 2:27 PM EDT) [facility] Cholesterol 153 <200 mg/dL LAB CHEMISTRY METHOD 10/26/2021 4:57 PM EDT [facility] Triglycerides 157(H) <150 mg/dL LAB CHEMISTRY METHOD 10/26/2021 4:57 PM EDT [facility] HDL 49(L) >59 mg/dL LAB CHEMISTRY METHOD 10/26/2021 4:57 PM EDT [facility] Comment: <35 mg/dl is the cut-point for increased Coronary Heart Disease (CHD) risk. LDL Calculated 73 0 - 99 mg/dL LAB CHEMISTRY METHOD 10/26/2021 4:57 PM EDT [facility] VLDL Cholesterol Francisco 31.4(H) <=30 mg/dL LAB CHEMISTRY METHOD 10/26/2021 4:57 PM EDT [facility] Blood Venous blood specimen / Unknown Venipuncture / Unknown 10/26/2021 2:27 PM EDT 10/26/2021 2:27 PM EDT Gale Howard NP LAB BLOOD ORDERABLES Final Res ult [facility] [address] [place] [address] * Cervical Cancer Screening: HPV (12/02/2019) Pathologist [facility] Cervical Cancer Screening: HPV abstracted Historical Provider MD HEALTH MAINTENANCE Final Result from Last 3 [...] currently active code status orders. Care Teams Manager Demand Relationship Specialty Start Date End Date Physician, No Pcp PCP - General 02/02/22
== END 2025-01-08 11:43 | disposition home or self-care (01) ==
LOC: HO.HMCC 11:07
PROVIDERS: PCP Internal Medicine; Visit Provider Internal Medicine
DX: G58.8 Other specified mononeuropathies (principal); F42.8 Other obsessive-compulsive disorder; F11.20 Opioid dependence, uncomplicated; F41.1 Generalized anxiety disorder; F33.41 Major depressive disorder, recurrent, in partial remission; N39.46 Mixed incontinence; G89.29 Other chronic pain; F17.210 Nicotine dependence, cigarettes, uncomplicated

== ENCOUNTER → 2025-01-08 11:06 | Outpatient (BNVA) | payer MEDICARE, MEDICAID, SELFPAY | PROVIDERS: PCP Internal Medicine; Visit Provider Internal Medicine | DX: G58.8 Other specified mononeuropathies (principal); F42.8 Other obsessive-compulsive disorder; F41.1 Generalized anxiety disorder; F33.41 Major depressive disorder, recurrent, in partial remission; G89.29 Other chronic pain; F11.20 Opioid dependence, uncomplicated; F17.210 Nicotine dependence, cigarettes, uncomplicated; Z71.6 Tobacco abuse counseling | CPT/HCPCS: 99212 ==

== ENCOUNTER 2025-02-05 07:52 | Outpatient (AMB) | payer MEDICARE, MEDICAID, SELFPAY ==
--- OUTSIDE RECORDS SUMMARY | 2019-11-24 23:00 | XMS_ITS | Encounter Summary ---
Author Organization [place] [address] Care Team Providers Care Grinder Operator Tool Name Role Phone Unavailable Primary Care Provider Unavailabl e Encounter Details Date Type Department Care Team (Late st Contact Info) Description 11/25/2019 Hospital Encounter TH HISTORIC ENCOUNTERS EASTERN CONVERSION ONLY Selma Ace MD [address] [place] [address] Other chest pain Social History Tobacco Use Types Packs/Day Years Used Date Smoking Tobacco: Every Day Cigarettes 1 30.8 Started: 1989; Last attempted to quit: 12/2019 Smokeless Tobacco: Never Comments:Smoking - how much: 1/4 PPD Alcohol Use Standard Drinks/Week Comments No 0 (1 standard drink = 0.6 oz pur e alcohol) Housing Instability Answer Date Recorde d Are you worried that in the next 2 months you may not have stable housing? No 10/14/2020 Food Access & Nutrition Answer Date Rec orded Do you have access to a vari ety of food including fruits and vegetables? Yes 10/14/2020 Financial Risk Answer Date Recorded How hard is it for you to pa y for the very basics like food, housing, medical care, and air conditioning / heating? Somewhat hard 10/14/2020 Transportation Answer Date Recorded Has the lack of transportati on kept you from meetings, work, or from getting things needed for daily living? No Has the lack of transportati on kept you from medical appointments or from getting medications? No 10/14/2020 Food Risk Answer Date Recorded Within the past 12 months we worried whether our food would run out before we got money to buy more. Never true 10/14/2020 Within the past 12 months th e food we bought just didn't last and we didn't have money to get more. Never true 10/14/2020 [facility] Answer Date Re corded How often do you need to hav e someone help you when you read instructions, pamphlets, or other written material from your doctor or pharmacy? Never 10/14/2020 Caregiver: How often do you need to have someone help you when you read instructions, pamphlets, or other written material from your doctor or pharmacy? N/A 10/14/2020 Education Answer Date Recorded What is the highest level of school you have completed or the highest degree you have received? 12th grade 11/19/2020 Comments Unknown Sex and Gender Information Value Date Recorded Sex Assigned at Not on file Legal Sex Female 4:12 PM EDT Gender Identity Not on file Sexual Orientation Not on file Occupation Industry Job Start Date Job End Date Disability Not on file Not on file Not on file COVID-19 Exposure Response Date Recorded In the last 10 days, have yo u been in contact with someone who was confirmed or suspected to have Coronavirus/COVID-19? Unable to assess 03/10/2022 10:01 AM EST documented as of this encounter Plan of Treatment Not on file documented as of this encounter Procedures Procedure Name Priority Date/Time Associated Diagnosis Comments TTE W/DOPPLER COMPLETE Routine 11/26/2019 10:09 AM EDT STRESS TEST CARDIAC TRACING Routine 11/25/2019 7:37 PM EDT documented in this encounter Results * TTE W/Doppler Complete [id number] [facility] (11/26/2019 10:09 AM EDT) Anatomical Region Laterality Modality Other 11/25/2019 8:17 AM EDT Narrative 11/26/2019 10:09 AM EDT [facility] in Cardiology [address] [place] [address] Transthoracic Echocardiogram Report Name: TEJA DOUGLAS Exam Date: 11/25/2019 08:17 Ordering Physician:SELMA ACE Age: 49 Gender: F Ht (in):65 Wt (lb): 168 Referring Physician:SHIRLEY WOLF BSA: 1.87 Clinical Interviewer: TREVOR : 1970 BP (mmHg): 108 / 70 Exam Location: [facility] Type of Exam: Adult CPT's: 25981 Clinical Indications:OTHER CHEST PAIN / LIGHTHEADED / DYSPNEA Diagnostic Findings:Other chest pain ICD Codes: R07.89 Technical Quality:Fair CONCLUSIONS: Grossly normal LV function with no hemodynamically sigificant valve disease. Findings Left Ventricle: The left ventricle is normal in size, thickness, and systolic function and there are no wall motion abnormalities. Estimated LV Systolic Ejection Fraction:63% LV Diastolic Function:Normal diastolic function. Left Atrium: The left atrium is normal in size. Right Ventricle: The right ventricle is normal in size and systolic function. Right Atrium: The right atrium is normal in size. Mitral Valve: The mitral valve leaflets are normal in structure and function. Aortic Valve: The aortic valve is trileaflet and opens well. Tricuspid Valve: The tricuspid valve is normal in structure. There is mild tricuspid regurgitation (1+). TR PG = 22mmhg. Pulmonic Valve: The pulmonic valve is not well visualized but there is no significant stenosis or insufficiency. Aorta: The aortic root is normal in size. Pulmonary Artery: The pulmonary artery is grossly normal. Pericardium: There is no pericardial effusion. Contrast Study: Not Performed Measurements 2D ECHO LV Diastolic Diameter Bas 4.81 cm 3.6-5.6 LV EF 2D Teich 63.22 % LV Diastolic Diameter Ind 2.57 cm/m IVS Diastolic Thickness 0.80 cm 0.6-1.1 LV Systolic Diameter Base 3.16 cm 2.3-4.9 LVPW Diastolic Thickness 0.93 cm 0.6-1.1 Fractional Shortening BAS 0.34 0.18-0.42 LA Systolic Diameter LX 2.90 cm 2.1-3.7 LV Systolic Volume SIM 31.57 cm3 Aortic Root Diameter 3.29 cm 2.0-3.5 LV Vol Sys 2D Teich 39.75 cm3 Aortic Root Index 1.76 cm/m LV Vol Holley 2D Teich 108.06 cm3 DOPPLER Mitral E Point Velocity 76.55 cm/s E Prime Velocity 9.07 cm/s Mitral A Point Velocity 41.36 cm/s E/e' Ratio 8.44 Mitral E to A Ratio 1.85 TR Peak Velocity 236.00 cm/ MV Deceleration Time 153.54 ms TR Peak Gradient 22.28 mmHg Cullen Nelson MD, [facility] (Electronically Signed) Final Date: 26 November 2019 10:08 Procedure Note Historical, Cardiovascular Results, MD - 07/08/2020 [facility] in Cardiology [address] [place] [address] Transthoracic Echocardiogram Report Name: TEJA DOUGLAS Exam Date: 11/25/2019 08:17Ordering Physician:SELMA ACE Age: 49 Gender: F Ht (in):65 Wt (lb): 168Referring Physician:SHIRLEY WOLF BSA: 1.87Sonographer: TREVOR : 1970 BP (mmHg): 108 / 70 Exam Location: [facility] Type of Exam: Adult CPT's: 89857 Clinical Indications:OTHER CHEST PAIN / LIGHTHEADED / DYSPNEA Diagnostic Findings:Other chest pain ICD Codes: R07.89 TechnicalQuality:Fair CONCLUSIONS: Grossly normal LV function with no hemodynamically sigificant valvedisease. Findings Left Ventricle: The left ventricle is normal in size, thickness, andsystolic function and there are no wall motion abnormalities. Estimated LV Systolic Ejection Fraction:63% LV Diastolic Function:Normal diastolic function. Left Atrium: The left atrium is normal in size. Right Ventricle: The right ventricle is normal in size and systolicfunction. Right Atrium: The right atrium is normal in size. Mitral Valve: The mitral valve leaflets are normal in structure andfunction. Aortic Valve: The aortic valve is trileaflet and opens well. Tricuspid Valve: The tricuspid valve is normal in structure. There ismild tricuspid regurgitation (1+). TR PG = 22mmhg. Pulmonic Valve: The pulmonic valve is not well visualized but there isno significant stenosis or insufficiency. Aorta: The aortic root is normal in size. Pulmonary Artery: The pulmonary artery is grossly normal. Pericardium: There is no pericardial effusion. Contrast Study: Not Performed Measurements 2D ECHO LV Diastolic Diameter Bas 4.81 cm 3.6-5.6 LV EF 2D Teich63.22 % LV Diastolic Diameter Ind 2.57 cm/m IVS DiastolicThickness 0.80 cm 0.6-1.1 LV Systolic Diameter Base 3.16 cm 2.3-4.9 LVPW DiastolicThickness 0.93 cm 0.6- 1.1 Fractional Shortening BAS 0.34 0.18-0.42 LA Systolic DiameterLX 2.90 cm 2.1-3.7 LV Systolic Volume SIM 31.57 cm3 Aortic Root Diameter3.29 cm 2.0-3.5 LV Vol Sys 2D Teich 39.75 cm3 Aortic Root Index1.76 cm/m LV Vol Holley 2D Teich 108.06 cm3 DOPPLER Mitral E Point Velocity 76.55 cm/s E Prime Velocity9.07 cm/s Mitral A Point Velocity 41.36 cm/s E/e' Ratio8.44 Mitral E to A Ratio 1.85 TR Peak Kweofzwc933.00 cm/ MV Deceleration Time 153.54 ms TR Peak Nhxmiosi96.28 mmHg Cullen Nelson MD, [facility] (Electronically Signed) Final Date: 26 November 2019 10:08 us Cardiovascular Results Historical CV HISTORIC AL CONV PROCEDURES Final Result * Stress Test Cardiac Tracing [id number] [facility] (11/25/2019 7:37 PM EDT) Anatomical Region Laterality Modality Other 11/25/2019 9:09 AM EDT Narrative 11/25/2019 7:37 PM EDT [facility]iology [address] [place] [address] Stress Test Report Name: TEJA DOUGLAS Exam Date: 11/25/2019 09:09 Ordering Phys: SELMA ACE Exam Location: [facility] Referring Phys:SHIRLEY WOLF Age: 49 Gender: F Ht (in):65 Wt (lb):163 BSA 1.84 Technologist: anny edmondson : 1970 Procedure CPT: 07907 Indications: Other chest pain, Palpitations, Other forms of dyspnea, Bradycardia, unspecified ICD-9 Codes: R07.89 R00.2 R06.09 R00.1 Patient History: chest pain, dyspnea, palpitations Medications: propanolol, pravastatin STRESS TEST Ovi Protocol Exercise Duration (min:sec):6:00 METS: 7.0 mets Resting HR (bpm):79 Resting BP (mmHg): 132 /78 MPHR: 147 Target HR: 7499 Peak HR (bpm): 134 Peak BP (mmHg): 152 /86 % MPHR: 77 Double Product:34752 BP Response: Normal blood pressure response during stress Stress Termination:6/10 chest pain present at start of test (constant). With exercise, there was nausea, fatigue, and slightly worsened chest pain 7/10 - all symptoms resolved within 1 minute of recovery and chest pain returned to baseline 6/10. Stress Symptoms: See above. Stress Summary: The patient's target heart rate was NOT achieved, The hemodynamic response to exercise was normal ECG ANALYSIS Resting ECG: Sinus bradycardia. Otherwise normal ECG. Stress ECG: Equivocal ECG changes with [address] depression seen in the inferior leads at peak exercise. CONCLUSIONS Nondiagnostic exercise EKG test due to failure to achieve the target heart rate. Equivocal ECG response to exercise with [address] depression. Baseline 6/10 chest discomfort increased to 7/10 with exercise and decreased in recovery back to baseline. If further evaluation for coronary artery disease is desired, consider follow-up stress testing with the addition of an imaging modality, coupled with either a longer beta-shailesh hold or pharmacologic stress. Dr. Christoph Sinclair (Electronically Signed) Final Date: 25 November 2019 18:57 Procedure Note Historical, Cardiovascular Results, MD - 07/08/2020 [facility] in Cardiology [address] [place] [address] Stress Test Report Name: TEJA DOUGLAS Exam Date: 11/25/2019 09:09Ordering Phys: SELMA ACE [facility]am [facility]erring Phys:SHIRLEY WOLF Age: 49 Gender: F Ht (in):65 Wt (lb):163 BSA 1.84Technologist: anny edmondson : 1970 Procedure CPT: 90700 Indications: Other chest pain, Palpitations, Other forms of dyspnea,Bradycardia, unspecified ICD-9 Codes: R07.89 R00.2 R06.09 R00.1 Patient History: chest pain, dyspnea, palpitations Medications: propanolol, pravastatin STRESS TEST Ovi Protocol Exercise Duration(min:sec):6:00 METS: 7.0 mets Resting HR (bpm):79 Resting BP (mmHg): 132 /78 MPHR: 147Target HR: 7499 Peak HR (bpm): 134 Peak BP (mmHg): 152 /86 % MPHR: 77Double Product:53380 BP Response: Normal blood pressure response during stress Stress Termination:6/10 chest pain present at start of test (constant).With exercise, there was nausea, fatigue, and slightly worsened chest pain 7/10 - all symptoms resolved within 1 minute ofrecovery and chest pain returned to baseline 6/10. Stress Symptoms: See above. Stress Summary: The patient's target heart rate was NOT achieved, Thehemodynamic response to exercise was normal ECG ANALYSIS Resting ECG: Sinus bradycardia. Otherwise normal ECG. Stress ECG: Equivocal ECG changes with [address] depressionseen in the inferior leads at peak exercise. CONCLUSIONS Nondiagnostic exercise EKG test due to failure to achieve the target heartrate. Equivocal ECG response to exercise with [address] depression. Baseline 6/10 chest discomfort increased to 7/10 with exercise anddecreased in recovery back to baseline. If further evaluation for coronary artery disease is desired, considerfollow-up stress testing with the addition of an imaging modality, coupled with either a longer beta-shailesh hold or pharmacologicstress. Dr. Chritsoph Sinclair (Electronically Signed) Final Date: 25 November 2019 18:57 us Cardiovascular Results Historical MD CV HISTORIC AL CONV PROCEDURES Final Result documented in this encounter Visit Diagnoses Diagnosis Other chest pain documented in this encounter
--- OUTSIDE RECORDS SUMMARY | 2019-12-10 23:00 | XMS_ITS | Encounter Summary ---
Author Organization [employer] [place] [address] Care Team Providers Care Fruit Distributor Name Role Phone Unavailable Primary Care Provider Unavailabl e Encounter Details Date Type Department Care Team (Late st Contact Info) Description 12/11/2019 Hospital Encounter TH HISTORIC ENCOUNTERS EASTERN CONVERSION ONLY Selma Ace MD [address] [place] [address] Palpitations Social History Tobacco Use Types Packs/Day [...] money to get more. Never true 10/14/2020 [facility] Answer Date Re corded How [...] encounter Results * Myocard Perf Spect Multiple 98032 [facility] (12/11/2019 8:45 PM EDT) Anatomical Region Laterality Modality Other 12/11/2019 9:02 AM EDT Narrative 12/11/2019 8:45 PM EDT [facility] in Cardiology [address] [place] [address] Regadenoson Stress Nuclear SPECT Report Name: TEJA DOUGLAS Exam Date: 12/11/2019 09:02 Ordering Phys: SELMA ACE : 1970 Referring Phys:SELMA ACE Age: 49 Gender: F Ht (in):65 Wt (lb):163 BSA 1.84 Technologist: FRANKIE Procedure CPT: 06351 Indications: Other chest pain ICD Codes: R07.89 Cardiac History: palpitations [facility] Appropriateness Criteria: Cardiac Medications: pravastatin, propranolol er [...] intravenously at rest. Resting SPECT images were ndikrzdw07 minutes past injection. Post Stress Imagin.9 mCi of Tc-99m Sestamibi was injected intravenously at peak pharmacological stress. Post Stress SPECT images were jwodooes79 minutes past tracer injection. Technical Quality: Technically [...] 2019 20:44 Procedure Note Historical, Cardiovascular Results, MD - 07/08/2020 [facility] in Cardiology [address] [place] [address] Regadenoson Stress Nuclear SPECT Report Name: TEJA DOUGLAS Exam Date: 12/11/2019 09:02Ordering Phys: SELMA ACE : 1970Referring Phys:SELMA ACE Age: 49 Gender: F Ht (in):65 Wt (lb):163 BSA 1.84Technologist: FRANKIE Procedure CPT: 74589 Indications: Other chest pain ICD Codes: R07.89 Cardiac History: palpitations [facility] Appropriateness Criteria: Cardiac Medications: pravastatin, propranolol er [...] injectedintravenously at rest. Resting SPECT images were minutes past injection. Post Stress Imagin.9 mCi of Tc-99m Sestamibi was injectedintravenously at peak pharmacological stress. Post Stress SPECT images were vwohorjh47 minutes past tracerinjection. Technical Quality: Technically adequate [...]
--- OUTSIDE RECORDS SUMMARY | 2020-01-23 | XMS_ITS | Encounter Summary ---
Author Organization [place] [address] Care Team Providers Care Marketing Trainee Name Role Phone Unavailable Primary Care Provider Unavailabl e Encounter Details Date Type Department Care Team (Latest Contact Info) Description 01/23/2020 Hospital Encounter TH HISTORIC ENCOUNTERS EASTERN CONVERSION ONLY Ruiz Simon PA [address] [place] [address] Other diseases of larynx Social History Tobacco Use Types Packs/Day Years [...] money to get more. Never true 10/14/2020 [facility] Answer Date Re corded How [...] Procedure Name Priority Date/Time Associated Diagnosis Comments CT NECK W/CONT OP (54925) Routine 01/23/2020 8:49 AM EST documented in this encounter Results * CT NECK W/CONT OP ([id number]) (01/23/2020 8:49 AM EST) Anatomical Region Laterality Modality Computed Tomogra phy 01/23/2020 8:26 AM EST Narrative 01/23/2020 8:49 AM EST EXAMINATION: [phone] - CT NECK W/CONTRAST WORKING DIAGNOSIS: chest pain ADDITIONAL HISTORY: 49 years old Female, chest pain. TECHNIQUE: Multidetector spiral CT imaging at 3 mm thick axial images were obtained through the soft tissues of the neck from the skullbase to the thoracic inlet after IV administration of contrast. Coronal and sagittal reconstructions were also obtained. Details of radiation dose and the intravenous contrast utilized are available from associated electronic documentation and summary images sent to PACS. COMPARISON: None. OBSERVATIONS: Posterior fossa: Unremarkable. Paranasal sinuses: Unremarkable. Parotid glands: No abnormality identified. Submandibular glands: No abnormality identified. Thyroid: Normal. Suprahyoid neck: Normal nasopharynx, oropharynx, oral cavity, parapharyngeal space, and retropharyngeal space. Infrahyoid neck: There is a hypodense structure along the anterior surface of the base of the epiglottis measuring 0.8 x 0.5 x 0.6 cm. This hypodense may represent a cyst. Otherwise unremarkable larynx, hypopharynx, and subglottis. Thoracic inlet: Unremarkable lung apices. Lymph nodes: No lymphadenopathy. Vascular structures: Unremarkable. IMPRESSION: Hypodense structure (0.8 x 0.5 x 0.6 cm) within the right preepiglottic space along the surface of the epiglottis. This could represent an epiglottic cyst. Visual inspection is recommended. Approved Electronically by: SARAY BARTLETT MD PhD on Jan 23 2020 8:47A Procedure Note Lavon Bartlett MD - 04/16/2020 EXAMINATION: [phone] - CT NECK W/CONTRAST WORKING DIAGNOSIS: chest pain ADDITIONAL HISTORY: 49 years old Female, chest pain. TECHNIQUE: Multidetector spiral CT imaging at 3 mm thick axial images were obtained through the soft tissues of the neck from the skullbase to the thoracic inlet after IV administration of contrast. Coronal and sagittal reconstructions were also obtained. Details of radiation dose and the intravenous contrast utilized are available from associated electronic documentation and summary images sent to PACS. COMPARISON: None. OBSERVATIONS: Posterior fossa: Unremarkable. Paranasal sinuses: Unremarkable. Parotid glands: No abnormality identified. Submandibular glands: No abnormality identified. Thyroid: Normal. Suprahyoid neck: Normal nasopharynx, oropharynx, oral cavity, parapharyngeal space, and retropharyngeal space. Infrahyoid neck: There is a hypodense structure along the anterior surface of the base of the epiglottis measuring 0.8 x 0.5 x 0.6 cm. This hypodense may represent a cyst. Otherwise unremarkable larynx, hypopharynx, and subglottis. Thoracic inlet: Unremarkable lung apices. Lymph nodes: No lymphadenopathy. Vascular structures: Unremarkable. IMPRESSION: Hypodense structure (0.8 x 0.5 x 0.6 cm) within the right preepiglottic space along the surface of the epiglottis. This could represent an epiglottic cyst. Visual inspection is recommended. Approved Electronically by: SARAY BARTLETT MD PhD on Jan 23 2020 8:47A [facility] [place] IMG CT PROCEDURES Final Result documented in this encounter Visit Diagnoses Diagnosis Other diseases of larynx documented in this encounter
--- OUTSIDE RECORDS SUMMARY | 2020-03-10 03:45 | XMS_ITS | Continuity of Care Document ---
Author Organization [facility] Address [address] [place] [address] Phone Care Team Providers Care Chiropractic Physician Name Role Phone Jennifer BUSH, FACS, FAAOA, [...] Copied on Encounter Office/Outpa tient Visit, Est [facility], [address] [place] [address], [address] [place] [address] , tel:[phone] Rodriguez Lump in throat (chief complaint) sore throat (chief complaint) Mass of epiglottisLaryngop haryngeal reflux (LPR)Dysphagia, unspecified typeAnxietyH/O heart artery stent 1 Jennifer Gusmana. [address] [place] [address], [id number], . tel:[phone] Specialist : Milind Finch MD, [address] [place] [address], [address]. tel:[phone] cialist: Miya Armendariz MD, [address] [facility] [address], [place], [address]. tel:[phone] cialist: Woodrow Bullock MD, [address] [place] [address], [address]. [phone] erring Provider: Frank Edmonds MD, Family Medicine [address] [place] [address], [address]. tel:[phone] [facility], [address] [place] [address], [address] [place] [address] , [phone] Flex No Information 1 Flex Romeo. [address] [place] [address], [address] [place] [address], . [phone] Referring Provider: Frank Edmonds MD, Family Medicine [address] [place] [address], [address]. [phone] [facility], [address] [place] [address], [address] [place] [address] , [phone] [place] No Information 0 No Information Referring Provider: Frank Edmonds MD, Family Medicine [address] [place] [address], [address]. tel:[phone] Office/Outpa tient Visit, [facility], [address] [place] [address], [address] [place] [address] , [phone] Flex Dysphagia follow up (chief complaint) Current smokerDysphagia, unspecified typeAnxietyLaryngo pharyngeal reflux (LPR)Mass of epiglottis 0 Flex Romeo. [address] [place] [address], [id number], . tel:[phone] Specialist : Milind Finch MD, [address] [place] [address], [address]. tel:[phone] cialist: Miya Armendariz MD, [address] [place] [address], [address]. tel:[phone] cialist: Woodrow Bullock MD, [address] [place] [address], [address]. tel:[phone] erring Provider: Frank Edmonds MD, Family Medicine [address] [place] [address], [address]. tel:[phone] [facility], [address] [place] [address], [address] [place] [address] , tel:[phone] Patient Portal No Information 0 Jennifer Colón. [address] [place] [address], [address] [place] [address], . tel:[phone] Office/Outpa tient Visit, [facility], [address] [place] [address], [address] [place] [address] , tel:[phone] Simon Dysphagia (chief complaint) Dysphagia, unspecified typeLaryngopharyng eal reflux (LPR)AnxietyMass of epiglottisCurrent smoker 0 No Vehicle Refinisher : Milind Finch MD, [address] [place] [address], [address]. tel:[phone] cialist: Miya Armendariz MD, [address] [place] [address], [address]. tel:[phone] cialist: Woodrow Bullock MD, [address] [place] [address], [address]. tel:[phone] erring Provider: Frank Edmonds MD, Family Medicine [address] [place] [address], [address]. tel:[phone] Office/Outpa tient Visit, [facility], [address] [place] [address], [id number] , tel:[phone] Setzen Facial pain (chief complaint) Headache around the eyesTMJ derangementDeviate d nasal septumReferred otalgia of both ears Aug-0 3-201 8 Renny Capone. [address] [facility], [place], [place], [id number], . tel:[phone] Specialist : Milind Finch MD, [address] [place], [address]. tel:[phone] cialist: Miya Armendariz, [address] [facility] [address], [place], [address]. tel:[phone] cialist: Woodrow Bullock MD, [address] [facility] [address], [place], [address]. tel:[phone] erring Provider: Frank Edmonds MD, Family Medicine [address] [place] [address], [address]. tel:[phone] Family History Family Member Type Diagnosis Age At Onset Father Problem (finding) Heart disease Payers Payer name Insurance type Covered libertarian ID Authoriza tion(s) MEDICARE PART B [id number] Social History Type Description Quantity Date Captured [...] sore throat in the AM. She used [place] yesterday with relief. Stilhaving some difficulty swallowing [...] sore throat in the AM. She used [place] yesterday with relief. 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 Additional information: Was in [facility] ER last week - left arm pain, [...] are variable and intense. She saw an city letter carrier who told her that her eyes were [...] have a normal upper endoscopy with her flight steward several months ago. I will request records [...]
--- OUTSIDE RECORDS SUMMARY | 2020-06-11 09:20 | XMS_ITS | Encounter Summary ---
Author Organization [place] [address] Care Team Providers Care International Coordinator Name Role Phone Frank Edmnods MD Primary Care Provider [phone] Encounter Details Date Type Department Care Team (Late st Contact Info) Description 06/11/2020 10:20 AM EDT Hospital Encounter [facility] [address] [facility] 2nd [place] [phone] Thaddeus De Anda MD [address] [place] [address] Social History Tobacco Use Types Packs/Day Years [...] money to get more. Never true 10/14/2020 [facility] Answer Date Re corded How [...] on file documented as of this encounter Visit Diagnoses Not on filedocumented in this encounter Care Teams International Coordinator Relationship Specialty Start Date End Date Frank Edmonds MD [address] [address] PCP - General 05/20/20 10/25/21 documented as of this encounter
--- OUTSIDE RECORDS SUMMARY | 2020-06-15 13:06 | XMS_ITS | Encounter Summary ---
Author Organization [employer] [place] [address] Care Team Providers Care Apparel Machinery Instructor Name Role Phone Frank Edmonds MD Primary Care Provider Encounter Details Date Type Department Care Team (Late st Contact Info) Description 06/15/2020 2:06 PM EDT Hospital Encounter [facility] PR[facility] [address] [place] [phone] Darinel Sanchez MD [address] [place] [address] Social History Tobacco Use Types [...] to get more. Never true 10/14/2020 [facility] Answer Date Re corded [...] on filedocumented in this encounter Care Teams Apparel Machinery Instructor Relationship Specialty Start Date End Date Frank Edmonds MD [address] [place] [place] [phone] PCP - General 05/20/20 10/25/21 documented as of this encounter
--- OUTSIDE RECORDS SUMMARY | 2024-09-03 05:20 | XMS_ITS ---
Author Organization [facility] Address [address] [place] [phone] Care Team Providers Care Marketing Researcher Name Role Phone Christopher BUSH, Ciro Primary Care Provider Dallas Toney [phone] REASON FOR VISIT Patient presents today for abnormal weight loss Encounters Encounter Location Date Provider Diagnosis [facility] [address] [place] [phone] 09/03/2024 Dallas Groves Plan Of Treatment No Information Progress Notes * TEJA GONZALEZDOB:1970 (54 yo F)Acc No.[id number]:09/03/2024 Progress Notes Patient: TEJA DONATO Provider: Keely Groves MD :1970 A ge:54 Y S ex:Female Date:09/03/2024 Address:[address] [place] [address], [address], [place] [id number] Pcp:Ciro White MD Subjective: * Chief Complaints: * P atient presents today for abnormal weight loss Billing Information: * Procedure Codes: * The named appointment provid er may or may not be the originator of this progress note, and it is not deemed complete until electronically signed by the appointment provider. Sign off status: Pending * Provider: Keely Groves MD Date: 0 09/03/2024 Generated for Pat mayberry/Tammy/Gómez on: 04/08/2024 08:01 AM EST
--- OUTSIDE RECORDS SUMMARY | 2025-02-05 08:01 | XMS_ITS | Patient Health Record ---
Author Organization [facility] Address [address] [place] [address] Care Team Providers Care Wellness Guide Name Role Phone Christopher BUSH, Asma Primary Care Provider Dallas Toney [phone] Reason For Referral No Information Encounters Encounter Location Date Provider Diagnosis [facility] [address] [place] [address] 09/03/2024 Dallas Groves Plan Of Treatment No Information Insurance Providers Payer Name Payer Address Payer Phone Subscriber Number Group Number Insured Name Patient Relationship to Insured Coverage Start Date Coverage End Date MEDICARE OF [place] [address] [place] [id number] TEJA GONZALEZ Self - patient is the insured MEDICAID OF [facility] [address] [place] [address] [id number] TEJA GONZALEZ Self - patient is the insured
--- OUTSIDE RECORDS SUMMARY | 2025-02-05 08:02 | XMS_ITS | Clinical Summary ---
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 Limit the use of dbom-ozp-dffpotm and prescription pain medications to 2 - [...] preservative (Fluzone; Afluria) 6mo and older 01/18/2016 [employer] SARS-CoV-2 COVID -19, vector-nr, [id number], preservative free [...] TONSILLECTOMY ADENOIDECTOMY, BILATERAL MYRINGOTOMY AND TUBES PROCEDURE: SC TONSILLECTOMY & ADENOIDECTOMY <AGE 12 OTHER SURGICAL HISTORY PROCEDURE: SC ARTHRS KNEE W/MENISCECTOMY MED&LAT W/SHAVING; COMMENT: left side OTHER SURGICAL HISTORY PROCEDURE: SC DILATION & CURETTAGE DX&/THER NONOBSTETRIC; COMMENT: 3 [...] money to get more. Never true 10/14/2020 [place] [facility] Answer Date Re corded How [...] file Not on file Not on file Last Filed Vital Signs Vital Sign Reading [...] Screening 1972 Colorectal Cancer Screening: Colonoscopy 1972 Non-Opioid Controlled Substance Agreement 1972 DTaP,Tdap,and Td Vaccines (1 - Tdap) 1991 Hepatitis B Vaccines (1 of 3 - 19+ 3-dose series) 1991 Pneumococcal Vaccine: 50+ Years (1 of 2 - PCV) 1991 Zoster Vaccines (1 of 2) 1991 Medicare Annual Wellness Visit 02/28/2019 COVID-19 Vaccine (2 - Arleen risk series) 08/05/2020 07/08/2020 Social Influencers of Health Screening 10/14/2021 10/14/2020 Drug Screen 02/11/2022 02/11/2021 Hypertension/CHF/CAD Annual BMP Blood Test 02/02/2023 02/02/2022, [...] this topic Medical Devices Implanted Type Area Collar Pointer Device Identifier Shelf Expiration Date Model / [...] Routine 10/26/2021 2:27 PM EDT Mixed hyperlipidemia DRUG ABUSE SCREEN, URINE Routine 02/11/2021 9:54 AM EST Precordial pain Myalgia, other site HM HPV Routine 12/02/2019 from Last 3 Months or Most Recently Relevant to Health Maintenance Results * (ABNORMAL) Comprehensive metabolic panel (02/02/2022 7:58 AM EST) Sodium 143 136 - 145 mmol/L LAB CHEMISTRY METHOD 02/02/2022 8:51 AM EST [facility] Potassium 3.1(L) 3.5 - 5.1 mmol/L LAB CHEMISTRY METHOD 02/02/2022 8:51 AM [facility] Chloride 114(H) 98 - 107 mmol/L LAB CHEMISTRY METHOD 02/02/2022 8:51 AM [facility] CO2 21 21 - 32 mmol/L LAB CHEMISTRY METHOD 02/02/2022 8:51 AM [facility] Anion Gap 8 3 - 11 LAB CHEMISTRY METHOD 02/02/2022 8:51 AM [facility] Glucose 104(H) 70 - 99 mg/dL LAB CHEMISTRY METHOD 02/02/2022 8:51 AM [facility] BUN 10 7 - 18 mg/dL LAB CHEMISTRY METHOD 02/02/2022 8:51 AM [facility] Creatinine 0.80 0.55 - 1.02 mg/dL LAB CHEMISTRY METHOD 02/02/2022 8:51 AM [facility] eGFR 90 >=60 mL/min/1. 73m2 LAB CHEMISTRY METHOD 02/02/2022 8:51 AM [facility] Comment: The MDRD GFR formula is valid only for adults between ages 18 and 70. Effective November 21, 2021, calculation based on the Chronic Kidney Disease Epidemiology Collaboration (CKD-EPI) equation refit without adjustment for race. BUN/Creatinine Ratio 12.5 12.0 - 20.0 LAB CHEMISTRY METHOD 02/02/2022 8:51 AM [facility] Calcium 9.0 8.5 - 10.1 mg/dL LAB CHEMISTRY METHOD 02/02/2022 8:51 AM [facility] AST (SGOT) 12(L) 15 - 37 unit/L LAB CHEMISTRY METHOD 02/02/2022 8:51 AM [facility] ALT (SGPT) 17 13 - 56 unit/L LAB CHEMISTRY METHOD 02/02/2022 8:51 AM [facility] Alkaline Phosphatase 72 42 - 98 unit/L LAB CHEMISTRY METHOD 02/02/2022 8:51 AM [facility] Total Protein 7.0 6.4 - 8.2 g/dL LAB CHEMISTRY METHOD 02/02/2022 8:51 AM [facility] Albumin 3.8 3.4 - 5.0 g/dL LAB CHEMISTRY METHOD 02/02/2022 8:51 AM [facility] Total Bilirubin 0.6 0.2 - 1.0 mg/dL LAB CHEMISTRY METHOD 02/02/2022 8:51 AM [facility] Blood Venous blood specimen / Unknown Venipuncture / Unknown 02/02/2022 7:58 AM EST 02/02/2022 8:04 AM EST us Adonis Stephen DO LAB BLOOD ORDERABLES Final Res ult Performing Organization Address [facility]/ZIP Co de Phone Number [facility] [address] [place] [phone] * Hepatitis c virus antibody reflex to [...] - 10/28/2021 4:05 AM EDT Performed at: [facility] [id number] Drum Straightener: Yahir Moss MD, Phone: [phone] us Gale Howard NP LAB BLOOD ORDERABLES Final Res ult [facility] * HIV 1, HIV 2 antibody screen, P24 antigen with reflex to differentiation (10/26/2021 2:27 PM EDT) [facility] HIV Combo AB/AG Negative/ Nonreacti ve Negative/ [...] 5. Only REACTIVE results are reported to [facility]. 6. REACTIVE results will be sent to our Reference Laboratory for HIV-1 AB, HIV-2 AB differentiation, and HIV-1 RNA detection by Spar Machine Operator-Mediated Amplification (TMA) and if positive, quantitation by Real-Time PCR. us Gale Howard NP LAB BLOOD ORDERABLES Final Res ult [facility] [address] [place] [address] * (ABNORMAL) Lipid panel (10/26/2021 2:27 PM EDT) [facility] Cholesterol 153 <200 mg/dL LAB CHEMISTRY METHOD 10/26/2021 4:57 PM EDT [facility] Triglycerides 157(H) <150 mg/dL LAB CHEMISTRY METHOD 10/26/2021 4:57 PM EDT [facility] HDL 49(L) >59 mg/dL LAB CHEMISTRY METHOD 10/26/2021 4:57 PM EDT [facility] Comment: <35 mg/dl is the cut-point for increased Coronary Heart Disease (CHD) risk. LDL Calculated 73 0 - 99 mg/dL LAB CHEMISTRY METHOD 10/26/2021 4:57 PM EDT [facility] VLDL Cholesterol Francisco 31.4(H) <=30 mg/dL LAB CHEMISTRY METHOD 10/26/2021 4:57 PM EDT [facility] Blood Venous blood specimen / Unknown Venipuncture / Unknown 10/26/2021 2:27 PM EDT 10/26/2021 2:27 PM EDT us Gale Howard NP LAB BLOOD ORDERABLES Final Res ult [facility] [address] [place] [address] * (ABNORMAL) Toxicology screen urine (clean catch) (02/11/2021 9:54 AM EST) Amphetamine Screen, Ur Negative Negative <1000 ng/mL LAB CHEMISTRY METHOD 02/11/2021 7:29 PM EST [facility] Barbiturate Screen, Ur Negative Negative <200 ng/mL LAB CHEMISTRY METHOD 02/11/2021 7:29 PM EST [facility] Benzodiazepine Screen, Ur Positive(A) Negative <200 ng/mL LAB CHEMISTRY METHOD 02/11/2021 7:29 PM EST [facility] Comment:Presumptive positive for Benzodiazepine >199 ng/mL. Cocaine Screen, Ur Negative Negative <300 ng/mL LAB CHEMISTRY METHOD 02/11/2021 7:29 PM EST [facility] Opiate Screen, Ur Positive(A) Negative <300 ng/mL LAB CHEMISTRY METHOD 02/11/2021 7:29 PM EST [facility] Comment:Presumptive positive for Opiates >299 ng/mL. PCP Scrn, Ur Negative Negative <25 ng/mL LAB CHEMISTRY METHOD 02/11/2021 7:29 PM EST [facility] Cannabinoid (THC) Screen, Ur Negative Negative <50 ng/mL LAB CHEMISTRY METHOD 02/11/2021 7:29 PM [facility] Methadone Screen, Urine Negative Negative <300 ng/mL LAB CHEMISTRY METHOD 02/11/2021 7:29 PM [facility] Buprenorphine Screen Urine Negative Negative <5 ng/mL LAB CHEMISTRY METHOD 02/11/2021 7:29 PM [facility] Creatinine Urine - Toxicology 163.0 29.0 - 226.0 mg/dL LAB CHEMISTRY METHOD 02/11/2021 7:29 PM [facility] pH Urine Tox 5.5 4.5 - 8.9 pH LAB CHEMISTRY METHOD 02/11/2021 7:29 PM [facility] Specific [place] Urine Tox 1.014 1.003 - 1.020 LAB CHEMISTRY METHOD 02/11/2021 7:29 PM [facility] Urine Urine specimen obtained by clean catch procedure / Unknown Non-blood Collection / Unknown 02/11/2021 9:54 AM EST 02/11/2021 9:54 AM EST Narrative [facility] - 02/11/2021 7:29 PM EST Drug Screen results are intended for medical treatment only. Analysis was performed as non-forensic testing. Initial screen performed by Enzyme Immunoassay. Frank Edmonds MD LAB URINE ORDERABLES Final Result [facility] [address] [place] [address] * Cervical Cancer Screening: HPV (12/02/2019) Pathologist [facility] Cervical Cancer Screening: HPV abstracted [...] currently active code status orders. Care Teams Dock Grader Relationship Specialty Start Date End Date Physician, No Pcp PCP - General 02/02/22
--- OUTSIDE RECORDS SUMMARY | 2025-02-05 08:02 | XMS_ITS | Data Portability ---
Author Organization [facility] [address] Address [address] [place] [address] Assessment No assessment recorded. Plan of Treatment Reminders Order Date Submit Date Provider Last Modified By Organization Details Last Modified Time Details Appointments None recorded. Lab None recorded. Referral orthopedic spine surgeon referral 2022 023 [email or web address] Not available 11:04:13 Procedures None recorded. Surgeries None recorded. Imaging None recorded. Medication Orders Medrol (Philip) 4 mg tablets in a dose pack 2022 023 [id number], [address], [place], [phone], 10:14:12 cyclobenzap rine 10 mg tablet 2022 023 [id number], [address], [place], [phone], 16:54:46 Patient TargetsNo targets recorded. Patient Instructions Encounter Date Encounter Id Patient Instructions Last Modified By Organization Details Last Modified Time 04/30/2022 [id number] getting back to normal after low back pain: care instructions [email or web address] Not available 04/30/2022 16:54:37 05/07/2022 [id number] getting back to normal after low back pain: care instructions [email or web address] Not available 05/07/2022 10:14:04 Reason for Referral Orthopedic Spine Surgeon Ref erral for Low back pain Referring Physician: Cristian Trujillo, Urgent Care, Encounter Date: 05/07/2022 Problems Name Problem SNOMED Code Status Onset Date Resolution Date Notes Provider Name and Address Organization Details Recorded Time Depressive disorder 64709315 Active 2022 Christy Catron null, PA - [facility] 3 15:08:17 Migraine 81975975 Active 2022 Christy Catron null, PA - [facility] 3 15:08:22 Anxiety 96055984 Active 2022 Christy Catron null, PA - [facility] 3 15:08:27 Neuralgia 03481706 Active 2022 Christy Catron null, PA - [facility] 3 15:08:45 Hyperlipidemia 01396352 Active 2022 Christy Rama null, PA - [...] mass index (BMI) Body weight Oxygen saturation Pain severity - 0-10 verbal numeric rating [Score] - Reported Heart rate Respiratory rate Body temperature Systolic And Diastolic Provider Name and Address Organization Details Last Updated DateTime 3 165.1 cm 30 kg/m2 82268.6 3 g 99 % 10 98 /min 20 /min 98.1 [degF] 116/78 mm[Hg] Christyjoselyn Ontiveros PA - [facility] 3 15:11:40 Date Recorded Body height Body mass index (BMI) Body weight Pain severity - 0-10 verbal numeric rating [Score] - Reported Oxygen saturation Heart rate Respiratory rate Body temperature Systolic And Diastolic Provider Name and Address Organization Details Last Updated DateTime 3 165.1 cm 30 kg/m2 69970.6 3 g 9 100 % 104 /min 18 /min 98.1 [degF] 127/79 mm[Hg] Mollylatasha Salamancaannika PA - [facility] 3 09:28:21 Social History Question Answer Notes LastModified by UsherBuddy Details LastModified Time Tobacco Smoking Status Former Smoker Christy Rama gu PA - [facility] 04/30/2022 15:10:10 When Did You Quit Smoking? 1-5yearssinc elastcigaret te Information not available 04/30/2022 Have You Had Direct Contact, Or Contact During Intimacy, With Monkeypox Rash, Scabs, Or Body Fluids From A Person With Monkeypox? No Information not available 04/30/2022 Have You Recently Traveled Abroad? No Information not available 04/30/2022 Sex: Unknown Functional Status Question Answer Note LastModified by UsherBuddy Details LastModified Time Do you use any illicit or recreational drugs? No Information not available 04/30/2022 Do you or have you ever used any other forms of tobacco or nicotine? No Information not available 04/30/2022 What is your level of alcohol consumption? None Information not available 04/30/2022 Mental Status None recorded. Family History Relationship [...] Diagnosis SNOMED-CT Code Diagnosis ICD10 Code Diagnosis IMO Codes Diagnosis Note [id number] CHIVO DERAS MD _[facility] [address] [address] 04/30/2022 10:46:51 04/30/2022 16:55:38 Spasm of back muscles 893294767 M62.830 MUSCU LOSKELETAL PAIN can be managed quite effectivel y with over the counter medication s and home treatments . When suffering from sprains, strains, contusions and other types of very painful but non-danger ous musculoske letal pain try the followin . ACETAMINOP HEN 1,000 mg or 6 hours is needed for pain. 2 . Heat - Apply moist heat to affected area 3 times a day for 20 minutes at a time. Do not sleep with a heating pad as it may cause skin alvarez. 3. Topical medication such as Stop Pain-Roll On feels good to rub on painful areas. Do not apply over broken skin. 4 . Many musculoske letal injuries can benefit from gentle stretching or strengthen ing exercises. 5. Wear a back support brace while working to take the strain of of you back. * If pain does not improve please see your doctor or return to [facility] within one week. If your symptoms become severe or uncontroll ed or if you develop new concerning symptoms please go to the Emergency Department for evaluation and pain control. Call your PCP to schedule a follow up appointmen t within the next 2 weeks. [id number] Cristian Trujillo [place] [address] [facility] [address] [place] [address] 05/07/2022 08:21:34 05/07/2022 10:24:41 Low back pain 453700198 M54.50 Likely muscular originReco mmend c/w muscle [...] Recorded Advance Directives Directive None Recorded Payers Insurance Date Sequence Insurance Name Policy Number Policy Chaudhry Covered Member ID Chaudhry Member ID Guarantor Name 05/07/2022 1 [place]ICARE B-[place]: [employer] Elenita Gomez [place] [id number] Elenita Douglas Notes Date Note Type Note Provider Name and Address Organization Details Recorded Time 3 text/html Back Pain/Injury UCReported by PatientHPIFor quality, patient reportssharpandmuscle spasms. For severity, patient reportspain level 9/10. For aggravating factors, patient reportsgoing from sit to standandstanding. For location, patient reportslower back,middle of the back, andupper back. For duration, patient reportsstarted 04/26/2022. For context, patient reportsoveruse(shoveling heavy snow.). For alleviating factors, patient reportsanalgesics,heat,lyi ng down, andrest. C/O pain that starts at neck and goes all the way down back. Worst of the pain is midback down. Went to the ED yesterday and waited 8 hours, did bloodwork/xrays/EKG/bloodw ork which they stated was fine. She states her rubber and pounder told her not to take NSAIDS for pain. She says she gets too hyper when she takes prednisone. CHIVO DERAS MD [address] [place], [address], [place] - [facility] 04/30/2022 17:01:44 3 text/html Back Pain/Injury UCReported by [id number] yo female c/o LBPwas seen here on 04/30 for back pain. Pt injured back shoveling.She was Rx'd a muscle relaxer which she is taking as well as topical analgesia, heating pad and tylenolshe cannot have NSAIDsPrednisone makes her hyper Sx are not improved and getting worsec/o numbness and tingling in legs BLno bowel/bladder incontinenceno saddle anesthesiano rash She does not have a PCPROS as noted in the HPI Cristian Trujillo, DO [address] [place], [address], [place] - [facility] 05/07/2022 10:38:57 OBGyn Episode No OBEpisode recorded.
--- NOTE | 2025-02-05 08:04 | MHC.PC.OV ---
Vital Signs 02/05/25 08:05 Height 5 ft 5 in Weight 111 lb BMI 18.5 BP 116/74 Blood Pressure Location Rt brachial Position Sitting Pulse 77 Pulse Source Pulse Oximeter Pulse Oximetry (%) 98 Oxygen Delivery Method Room Air Intake Visit Reasons: follow up meds Allergies cefazolin (From Anc) Allergy (Mild, Verified 02/05/25 08:06) Swelling Medication List - Last Reconciled 02/05/25 by Ciro White MD [Adult pull-ups Use As directed NS] atorvastatin 80 mg PO QPM nicotine (Nicoderm CQ) 1 patch transdermal DAILY omeprazole 20 mg PO DAILY oxycodone 5 mg PO BID 30 days sertraline 25 mg PO DAILY solifenacin 10 mg PO DAILY Tobacco use date assessed: 12/11/24 Dental Screening Dental Screen Date: 12/11/24 HPI HPI Comments History of Present Illness Details History of Present Illness The patient is a 54 year old female presenting for follow-up as she is recovering from a viral illness. Acute viral illness: - The patient reports she has been sick for a couple of days with symptoms including fever, vomiting, diarrhea, generalized body aches, coughing, sneezing, and headache. - Her symptoms began the day after a shopping trip with her mother and aunt, who also became sick. - She had difficulty keeping anything down and reports throwing up her medications, nearly choking on an atorvastatin. - She reports experiencing diarrhea this morning and took an [id number]-dhu-dbbfsrq anti-diarrheal medication. - Her condition is improving; she was able to tolerate chicken soup the previous night and is starting to feel better today. Intercostal neuralgia: - The patient has a history of intercostal neuralgia. - She is prescribed oxycodone 5 mg twice a day for this condition. Anxiety: - The patient has a history of anxiety and is established with a psychiatrist for treatment. [facility] Medical History Obsessive compulsive disorder Agoraphobia Personality disorder Anxiety and depression 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) Surgical History Hx of dilation and curettage Hx of knee surgery Hx of tonsillectomy Family History Father Heart attack Hypertension Mother Hypertension Social History Household Members Other:: mom Housing: Condominium Alcohol intake: never Patient Tobacco Use Status: Current everyday Tobacco user Tobacco use type: Cigarette Years Smoked: 32 years e-Cigarette/Vaping Use: Never Used Second Hand Smoke Exposure: No service: No Current occupational status: disabled Current occupational exposures/hazards: No Sexual orientation: Straight/Heterosexual Gender identity: Female Cognitive needs: No Hearing needs: No Vision needs: Yes Questionnaire Thrive Questionnaire Date Thrive assessed: 02/28/24 I am a: Patient What is your living situation today?: I have a steady place to live Within the past 12 months, did the food you bought not last and you didn't have the money to get more?: I choose not to answer this question Within the past 12 months, did you worry whether your food would run out before you got money to buy more?: Never true Do you have trouble paying for medicines?: No Do you have trouble getting transportation to medical appointments?: No Do you have trouble paying your heating and electricity bill?: No Do you have trouble taking care of your child, family member or friend?: No Do you have trouble with day-to-day activities such as bathing, preparing meals, shopping, managing finances, etc.?: No Are you currently unemployed and looking for a job?: No Are you interested in more education?: No Currently or been in a relationship where the following occur: No concerns reported THRIVE Score: 0 FIFI-7 AMB Questionnaire FIFI-7 Date FIFI - 7 assessed: 02/28/24 Source: Developed by Drs. Dallas Keller, Cassie Frankel, Glynn Blackwell and colleagues, with an educational kane from [employer]. Review of Systems Narrative Review of Systems - General: No fever no chills any more - Neurological: No headaches no dizziness - Ear nose throat: No sore throat no hearing difficulty no ear pain - Cardiovascular: No syncope, no chest pain, no palpitations - Gastrointestinal: No nausea vomiting Physical exam (Primary Care) Vital Signs: Last Vital Signs Pulse 77 02/05/25 08:05 BP 116/74 02/05/25 08:05 Pulse Ox 98 02/05/25 08:05 Oxygen Delivery Method Room Air 02/05/25 08:05 BMI result Body Mass Index 18.5 Tobacco/Smoking Status: Tobacco use Status Tobacco use date assessed 12/11/24 02/05/25 08:09 Patient Tobacco Use Status Current everyday Tobacco 02/05/25 08:09 Tobacco use type Cigarette 02/05/25 08:09 e-Cigarette/Vaping Use Never Used 02/05/25 08:09 Thrive Assessment: Date of Thrive Assessment Date Thrive assessed 02/28/24 02/05/25 08:09 Currently or been in a relationship where the following occur: No concerns reported Narrative Physical Exam General: No acute distress HEENT: No acute findings Neck: Supple Respiratory system: Able to talk in full sentences, no audible wheeze Cardiovascular: S1-S2 regular in rate and rhythm Gastrointestinal: Diarrhea present, vomiting reported Extremities: No new findings VICE PRESIDENT NETWORK DEVELOPMENT: Alert awake oriented x3 motor intact Skin: Normal turgor Coding Level of Care Code Est Pt Level 3 (56502) Add On Problem Visit Only Diagnoses 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 Anxiety, generalized F41.1 Chronic narcotic dependence F11.20 Viral illness B34.9 Assessment & Plan Assessment & Plan (1) Intercostal neuralgia: Code(s): G58.8 - Other specified mononeuropathies Category: Medical (2) Anxiety, generalized: Code(s): F41.1 - Generalized anxiety disorder Category: Medical (3) Chronic narcotic dependence: Code(s): F11.20 - Opioid dependence, uncomplicated Category: Medical (4) Viral illness: Code(s): B34.9 - Viral infection, unspecified Category: Medical Plan Problem List - Acute viral illness - Intercostal neuralgia - Anxiety Plan - The patient was advised to continue supportive care at home for her viral illness, including rest. - Recommended dietary modifications include eating bland food, consuming small meals, and increasing fluid intake. - Advised to drink Gatorade in small sips to prevent nausea. - Prescription medications will be sent to the pharmacy. - The patient has a follow-up appointment scheduled for next month and does not need to schedule a new one. Medications: Refilled oxycodone Partial Fill upon patient request. 5 mg PO BID 60 tabs 0RF pain 30 days
[2025-02-05 08:05] VITALS: BP 116/74; PULSE 77; O2SAT 98; BMI 18.5
== END 2025-02-05 09:01 | disposition home or self-care (01) ==
LOC: HO.HMCC 07:53
PROVIDERS: PCP Internal Medicine; Visit Provider Internal Medicine
DX: G58.8 Other specified mononeuropathies (principal); F41.1 Generalized anxiety disorder; F11.20 Opioid dependence, uncomplicated; B34.9 Viral infection, unspecified

== ENCOUNTER → 2025-02-05 07:52 | Outpatient (BNVA) | payer MEDICARE, MEDICAID, SELFPAY | PROVIDERS: PCP Internal Medicine; Visit Provider Internal Medicine | DX: Z76.89 Persons encountering health services in other specified circumstances (principal); G58.8 Other specified mononeuropathies; F41.1 Generalized anxiety disorder; F11.20 Opioid dependence, uncomplicated; B34.9 Viral infection, unspecified | CPT/HCPCS: 99212 ==